=== PATIENT | female | born 1950 | race Caucasian/White ===

== ENCOUNTER → 2017-12-31 14:58 | Outpatient (CLI) | payer MEDICARE, BC, SELFPAY ==
--- NOTE | 2017-12-31 15:07 | DI.REPORT_ITS ---
SYMPTOM/DIAGNOSIS: ACUTE PAIN LEFT KNEE M25.562 LEFT KNEE: 12/31 Three views were obtained. There are minimal change of hypertrophic spurring of the bones of the knee. No other significant abnormality seen.
== END ==
PROVIDERS: PCP Nurse Practitioner; Visit Provider Nurse Practitioner
DX: M25.562 Pain in left knee (principal); M76.892 Other specified enthesopathies of left lower limb, excluding foot
CPT/HCPCS: 73562

== ENCOUNTER 2018-01-15 09:30 | Outpatient (RCR) | payer MEDICARE, BC, SELFPAY ==
--- NOTE | 2018-01-12 13:00 | IE_ITS ---
Date: January 12, 2018 Referring: FLORENCE Bhatia M.D. Diagnosis: Acute L knee pain P.T. Diagnosis: Patella tendinitis of L knee SUBJECTIVE: History of Present Illness: Saundra complains of intermittent discomfort throughout the anterior aspect of the L knee. This is generally worse with taking the first couple dozen steps after prolonged sitting, stair,hill climbing , dissension greater than ascension, etc. . . Does not interfere with sleeping pattern, (-) AM stiffness, no swelling, no complaints of locking or buckling. 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 Was doing well until 1 month ago when she developed an onset of anterior L knee pain. The day before she was riding a horse, which she had not ridden in 11 years and the saddle kept slipping, so she was using her L leg to try to stablize the saddle. Did not develop any swelling, but she did have difficulty with weight bearing and used 2 sticks to assist with walking. She was seen by Deepa Huertas DPT for some massage and since then her knee pain is 80% improved. Pain Ratin/10 currently Pain Location: Throughout the anterior aspect of the L knee Prior Level of Function: Independent with all ADL's Current Level of Function: Unable to run, has difficulty walking more than a couple blocks. Stairclimbing is painful as well as squatting. 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 Previous Treatment: X-ray was taken recently and showed some mild spurring along the lateral tibial plateau as well as suprapatellarly, otherwise she has good joint space. Comorbidities: Hypertension, hypothyroidism, hx of cancer. Falls in the last year: __X__ No ____Yes - How many? ____ - (if over 2, balance SM needs to be completed) Reported hospitalizations in the last year - __X__ No ____ Yes - Dates of admission/reason: Medications: Levothyroxine, anti-hypertensives and Tylenol. Unable to take Ansaids. Quality of Life: ____ Excellent __X__ Good ____ Fair ____ Poor Standardized Measures: LEFS score: 53% OBJECTIVE: Posture: Genu valgus bilaterally with a posterior tibial dysfunctional R foot requiring use of an Amara brace, mild pronator on the L. She wears accommodative type orthotics Observation: (behavior, atrophy, skin color, etc.) Pleasant, no pain behavior noted. Gait: Ambulates with mild antalgia bilaterally during stance phase L side mainly because of anterior L knee pain, R because of R ankle. Palpation: Has tenderness to palpation throughout the joint lines of both knees L greater than R, but particularly over the L patella tendon, glut medius on the L greater than R and lesser degree over the ITB. Edema: (-) effusion, erythema or warmth. ROM: Her lumbar movements are non-irritable. Bilateral hip motion is mildly limited within an articular pattern, or without pain on movement, or reproduction of her symptoms. Her L knee motion is 0 to 135-140 degrees with end range pain throughout the anterior aspect of the knee with flexion/extension. Talocrural, subtalar movements not tested. She has good patella movement. Strength: Has full motor control throughout, decreased quad definition on the L compared to the R and L glut is at -5/5. Neuro: Intact. Special Tests: (-) SLR bilaterally, (-) patellofemoral compression, (-) Adrian 's or drawer sign, (-) laxity with valgus varus stress, (-) Xu's or Apley' s grind test. Treatment: Initial evaluation along with a friction massage to the L patella tendon as well as HEP. IE: [id number] Therapeutic procedures ([id number]). Direct treatment time: 60 MINS Total treatment time: 60 MINS ASSESSMENT: Patient is a 67-year-old female, referred for PT services with the diagnosis of acute L knee pain. Patient presents with clinical signs and symptoms consistent with patella tendinopathy L knee, as demonstrated by the following impairment level findings: Localized tenderness over the patella tendon L knee along with end range discomfort, some mild L quad/glut weakness. Impairments are contributing to the following functional limitations:Difficulty walking more than a couple blocks, discomfort when initially taken the first few steps after prolonged sitting, as well as interfering with her ability to perform her household duties. Patient is assessed as: __X__ Low 00507 ____ Moderate 78034 ____ High 76671 complexity, based on the following: History: (list): Recent onset of anterior L knee pain. See comorbidities and social history. Examination: (list): X See above for functional limitations and impairments. Presentation: X Stable . Evolving Unstable: She is 80% better compared to onset. Decision-Making: Low complexity X Moderate complexity High complexity % Disability based on LEFS of 53% __X__ Patient requires skilled PT intervention to remediate the above functional limitations to return to: _ Prognosis: ____ Excellent __X__ Good ____ Fair ____ Poor G-Codes (fill in modifier after appropriate code): Patient's primary functional limitation is in the category of: __X__ Mobility - walking and moving around : [id number] Projected goal: __X__ Mobility - walking and moving around: [id number] STG: __6__ weeks. 1: Assist the healing process of patella tendinopathy in order to increase her WB time and pain intensity. LTG: __12__ weeks. 1: Return to premorbid level of function. PLAN: Session today consisted of the evaluation along with friction massage over the L patella tendon and issuing her a written and illustrated home exercise program consisting of open/close chain quad, gluteal strengthening. This should be done within limits of pain. Ice for symptomatic relief, particularly towards the latter part of the day. Avoid excessive hill or stairclimbing. I will see her 2x a week for next 2-4 weeks for soft tissue mobilization and strengthening, gait training, etc. . . Modify her program as her symptoms dictate. [] Therapeutic exercise - [id number]-[]. Thank you for this referral. Please do not hesitate to contact me with any questions or concerns regarding this patient's plan of care. *Ingrid, please sign this evaluation if you are in agreement with the above stated goals and plan of care. ___ cc: FLORENCE Bhatia
--- NOTE | 2018-01-15 10:16 | PTTR_ITS ---
DATE: 01/15/18 OBJECTIVE: Manual therapy: ([id number]). Pt received CFM to the patella tendon. Pt then received rock taping to the left knee. Pt then transitioned into R side lying and received DTM and trigger point release techniques throughout the glute med region. * X Ultrasound - (x 8 mins) - [id number]: 3mhz, 20% duty cycle, 1.0w/cm2 to the patella tendon where she was the most symptomatic. Direct treatment time: 30 Total treatment time: 30
== END 2018-01-16 23:59 | disposition home or self-care (01) ==
LOC: PT 09:30
PROVIDERS: PCP Nurse Practitioner; Referring Provider Nurse Practitioner; Visit Provider Nurse Practitioner
DX: M76.52 Patellar tendinitis, left knee (principal); M25.512 Pain in left shoulder; M54.6 Pain in thoracic spine; M54.2 Cervicalgia; M79.1 Myalgia
CPT/HCPCS: 97035; 97110; 97140; 97161; G8978

== ENCOUNTER 2018-03-02 01:07 | Outpatient (CLI) | payer MEDICARE, BC, SELFPAY ==
--- NOTE | 2018-03-02 16:22 | DI.MAMMO_ITS ---
SYMPTOMS/DIAGNOSIS: SCREENING, Z12.31 MAMMOGRAMS: Mammograms were interpreted according to the usual protocol including computer analysis with CAD system, tomosynthesis and C view imaging. The breast tissue is of moderate radiodensity. There is no evidence of a mass. There are no suspicious calcifications and there has been no significant interval change when compared with prior images. SUMMARY: No evidence of malignancy, category 1. Yearly screening mammography is recommended. Breast density category B. SA ASSESSMENT OF FINDINGS: Negative. Category 1. Patient will receive a letter notifying them of these results. BI-RADS category B. There are scattered areas of fibroglandular density.
== END 2018-03-02 01:27 ==
PROVIDERS: PCP Nurse Practitioner; Visit Provider Nurse Practitioner
DX: Z12.31 Encounter for screening mammogram for malignant neoplasm of breast (principal)
CPT/HCPCS: 77063; 77067

== ENCOUNTER 2018-03-17 16:05 | Outpatient (REF) | payer MEDICARE, BC, SELFPAY ==
[2018-03-18 19:56] LABS: Campylobacter PCR SEE COMMENTS; Salmonella PCR SEE COMMENTS; Shiga Toxin PCR SEE COMMENTS; Shigella/Enteroinvasive Ecoli SEE COMMENTS
== END 2018-03-17 16:25 ==
LOC: LBN 16:05
PROVIDERS: PCP Nurse Practitioner; Visit Provider Nurse Practitioner
DX: R19.7 Diarrhea, unspecified (principal)
CPT/HCPCS: 87505; 83630; 87177; 87324

== ENCOUNTER 2018-04-18 09:39 | Outpatient (REF) | payer MEDICARE, BC, SELFPAY ==
[2018-04-21 11:05] LABS: Campylobacter PCR SEE COMMENTS; Salmonella PCR SEE COMMENTS; Shiga Toxin PCR SEE COMMENTS; Shigella/Enteroinvasive Ecoli SEE COMMENTS
[2018-04-21 18:55] LABS: Calprotectin 195 mcg/g
== END 2018-04-18 09:59 ==
LOC: LBN 09:39
PROVIDERS: PCP Nurse Practitioner; Visit Provider Nurse Practitioner Family
DX: R19.7 Diarrhea, unspecified (principal); R63.4 Abnormal weight loss
CPT/HCPCS: 87505; 81050; 82656; 83497; 83630; 83993; 87177; 87324

== ENCOUNTER 2018-04-18 12:07 | Outpatient (REF) | payer MEDICARE, BC, SELFPAY ==
[2018-04-21 16:13] LABS: 5-Hydroxyindoleacetic Acid, U 9.4 mg/24 h (<=8.0); Urine Volume 1400 mL
== END 2018-04-18 12:27 ==
LOC: LBN 12:07
PROVIDERS: PCP Nurse Practitioner; Visit Provider Nurse Practitioner Family
DX: R19.7 Diarrhea, unspecified (principal); R63.4 Abnormal weight loss
CPT/HCPCS: 87505; 81050; 82656; 83497; 83630; 83993; 87177; 87324

== ENCOUNTER 2018-04-24 11:43 | Outpatient (REF) | payer MEDICARE, BC, SELFPAY ==
[2018-05-01 19:25] LABS: Pancreatic Elastase, F 192 mcg/g
== END 2018-04-24 12:03 ==
LOC: LBN 11:43
PROVIDERS: PCP Nurse Practitioner; Visit Provider Nurse Practitioner Family
DX: R19.7 Diarrhea, unspecified (principal)
CPT/HCPCS: 82656

== ENCOUNTER 2018-07-29 08:15 | Outpatient (CLI) | payer MEDICARE, BC, SELFPAY ==
[2018-07-29 08:40] LABS: HCT 43.3 % (36.0-46.0); HGB 14.2 g/dL (12.0-15.5); Mean Corp. HGB Concentration 32.8 g/dL (32.0-36.0); Mean Corpuscular Hemoglobin 29.9 pg (27.0-33.0); Mean Corpuscular Volume 91.2 fL (80-95); Mean Platelet Volume 10.6 fL (8.0-11.0); Platelet Count 118 x1000/uL (130-400); RBC 4.75 m/cumm (4.00-5.20); RBC Distribution Width 13.6 % (11.7-14.6)
[2018-07-29 09:36] LABS: ALT 23 U/L (12-78); AST 20 U/L (15-37); Albumin 3.8 g/dL (3.4-5.0); Alkaline Phosphatase 85 U/L (46-116); Anion Gap 8.3 mmol/L (3-11); BUN 17 mg/dL (7-18); Bilirubin, Total 0.4 mg/dL (0.2-1.0); CO2 30.7 mmol/L (21.0-32.0); CREATININE 0.76 mg/dL (0.55-1.02); Calcium 9.4 mg/dL (8.5-10.1); Chloride 105 mmol/L (98-107); Cholesterol 185 mg/dL (50-200); Glucose 103 mg/dL (70-100); HDL Cholesterol 62 mg/dL (40-60); LDL CHOLESTEROL 99 mg/dL (<100); Potassium 4.1 mmol/L (3.5-5.1); Sodium 144 mmol/L (136-145); TSH (W/Ref FT4) 3.06 uIU/mL (0.358-3.74); Total Protein 6.8 g/dL (6.4-8.2); Triglyceride 112 mg/dL (30-150)
[2018-07-29 09:57] LABS: Hemoglobin A1C 5.4 % (4.5-6.2)
[2018-07-29 13:53] LABS: Absolute Eosinophil Count 0.76 k/cumm (0.0-0.7); Absolute Lymphocyte Count 32.93 k/cumm (1.2-3.4); Absolute Monocyte Count 0.76 k/cumm (0.11-0.7); Absolute Neutrophil Count 3.41 k/cumm (1.2-6.7); Atypical Lymphocytes % 10; Diff Comment Manual Differential
[2018-07-29 13:54] LABS: RBC Morphology Normal
[2018-07-29 14:12] LABS: White Blood Cell Count 37.85 k/cumm (4.4-10.8)
== END 2018-07-29 08:35 ==
PROVIDERS: PCP Nurse Practitioner; Visit Provider Nurse Practitioner
DX: I10 Essential (primary) hypertension (principal); R73.01 Impaired fasting glucose; E03.9 Hypothyroidism, unspecified; E78.5 Hyperlipidemia, unspecified
CPT/HCPCS: 80053; 80061; 83721; 83036; 84443; 85025

== ENCOUNTER 2018-08-31 11:19 | Outpatient (CLI) | payer MEDICARE, BC, SELFPAY ==
[2018-08-31 11:47] LABS: Abs Immature Grans 0.03 k/cumm (0.0-0.09); Absolute Eosinophil Count 0.22 k/cumm (0.0-0.7); Basophils % 0.2; Eosinophils % 0.7; HCT 43.8 % (36.0-46.0); HGB 14.4 g/dL (12.0-15.5); Immature Grans % 0.1; Lymphocytes % 87.4; Mean Corp. HGB Concentration 32.9 g/dL (32.0-36.0); Mean Corpuscular Hemoglobin 29.8 pg (27.0-33.0); Mean Corpuscular Volume 90.7 fL (80-95); Mean Platelet Volume 10.1 fL (8.0-11.0); Monocytes % 3.1; Neutrophils % 8.5; Platelet Count 135 x1000/uL (130-400); RBC 4.83 m/cumm (4.00-5.20); RBC Distribution Width 14.1 % (11.7-14.6)
[2018-08-31 12:02] LABS: ALT 41 U/L (12-78); AST 25 U/L (15-37); Albumin 3.7 g/dL (3.4-5.0); Alkaline Phosphatase 81 U/L (46-116); Anion Gap 8.6 mmol/L (3-11); BUN 16 mg/dL (7-18); Bilirubin, Total 0.4 mg/dL (0.2-1.0); CO2 27.4 mmol/L (21.0-32.0); CREATININE 0.68 mg/dL (0.55-1.02); Calcium 9.2 mg/dL (8.5-10.1); Chloride 105 mmol/L (98-107); Glucose 133 mg/dL (70-100); LDH 175 U/L (81-234); Potassium 4.2 mmol/L (3.5-5.1); Sodium 141 mmol/L (136-145); Total Protein 7.1 g/dL (6.4-8.2)
[2018-08-31 12:32] LABS: Absolute Basophil Count 0.06 k/cumm (0.0-0.2); Absolute Lymphocyte Count 27.48 k/cumm (1.2-3.4); Absolute Monocyte Count 0.97 k/cumm (0.11-0.7); Absolute Neutrophil Count 2.67 k/cumm (1.2-6.7); White Blood Cell Count 31.44 k/cumm (4.4-10.8)
[2018-08-31 12:33] LABS: Diff Comment Diff Reviewed; RBC Morphology Normal
== END 2018-08-31 11:39 ==
PROVIDERS: PCP Nurse Practitioner; Visit Provider Internal Medicine Hematology
DX: C91.90 Lymphoid leukemia, unspecified not having achieved remission (principal)
CPT/HCPCS: 36415; 80053; 83615; 85025

== ENCOUNTER 2018-12-11 08:17 | Outpatient (CLI) | payer MEDICARE, BC, SELFPAY ==
[2018-12-11 09:15] LABS: Anion Gap 9.5 mmol/L (3-11); BUN 13 mg/dL (7-18); CO2 26.5 mmol/L (21.0-32.0); CREATININE 0.73 mg/dL (0.55-1.02); Calcium 9.5 mg/dL (8.5-10.1); Chloride 109 mmol/L (98-107); Glucose 104 mg/dL (70-100); Sodium 145 mmol/L (136-145)
== END 2018-12-11 08:37 ==
PROVIDERS: PCP Nurse Practitioner; Referring Provider Internal Medicine Hematology; Visit Provider Nurse Practitioner
DX: R79.9 Abnormal finding of blood chemistry, unspecified (principal)
CPT/HCPCS: 36415; 80048

== ENCOUNTER 2019-06-02 07:41 | Outpatient (CLI) | payer MEDICARE, BC, SELFPAY ==
[2019-06-02 08:00] LABS: HCT 44.8 % (36.0-46.0); HGB 14.7 g/dL (12.0-15.5); Mean Corp. HGB Concentration 32.8 g/dL (32.0-36.0); Mean Corpuscular Hemoglobin 29.7 pg (27.0-33.0); Mean Corpuscular Volume 90.5 fL (80-95); Mean Platelet Volume 10.4 fL (8.0-11.0); Platelet Count 145 x1000/uL (130-400); RBC 4.95 m/cumm (4.00-5.20)
[2019-06-02 08:21] LABS: White Blood Cell Count 38.07 k/cumm (4.4-10.8)
[2019-06-02 08:40] LABS: ALT 27 U/L (14-59); AST 22 U/L (15-37); Alkaline Phosphatase 74 U/L (46-116); Anion Gap 7.1 mmol/L (3-11); BUN 15 mg/dL (7-18); Bilirubin, Total 0.5 mg/dL (0.2-1.0); CO2 28.9 mmol/L (21.0-32.0); CREATININE 0.78 mg/dL (0.55-1.02); Calcium 9.6 mg/dL (8.5-10.1); Calculated LDL 124 mg/dL; Chloride 105 mmol/L (98-107); Cholesterol 213 mg/dL (<200); Glucose 93 mg/dL (74-106); HDL Cholesterol 60 mg/dL (40-60); Sodium 141 mmol/L (136-145); TSH (W/Ref FT4) 3.61 uIU/mL (0.36-3.74); Triglyceride 145 mg/dL (<150)
== END 2019-06-02 08:01 ==
PROVIDERS: PCP Nurse Practitioner; Visit Provider Nurse Practitioner
DX: I10 Essential (primary) hypertension (principal); E78.5 Hyperlipidemia, unspecified; E03.9 Hypothyroidism, unspecified
CPT/HCPCS: 36415; 80053; 80061; 85027; 84443

== ENCOUNTER 2019-06-14 01:44 | Outpatient (CLI) | payer MEDICARE, BC, SELFPAY ==
--- NOTE | 2019-06-14 11:51 | DI.MAMMO_ITS ---
EXAM: MG MAMMO SCREENING CLINICAL HISTORY: screening, Z12.39. TECHNIQUE: Full field digital CC and MLO mammographic images were obtained with 3D tomosynthesis and utilizing computer aided detection (CAD). COMPARISON: 2011 to 2017 FINDINGS: Breast Density - Category A - Almost entirely fatty Masses/Architectural Distortion: None seen. Microcalcifications: No suspicious pleomorphic-type calcifications are seen. Skin Thickening/Nipple Retraction: None. Axilla: There are enlarged bilateral axillary lymph nodes which appear unchanged from the previous ex aminations. The patient has a history of CLL. IMPRESSION: 1. BI-RADS Cat 2- Negative mammogram with benign Findings. 2. Unless there is more urgent need, screening mammography is recommended, as per [place] [employer] guidelines. A negative radiographic report should not delay biopsy if a dominant or clinically suspicious mass is present. Up to ten percent of cancers are not identified on mammography. A negative report may reinforce clinical impression. Adenosis and dense breasts may obscure an underlying neoplasm. False positive reports average 6 to 10%. Patient will receive a letter notifying them of these results.
== END 2019-06-14 02:04 ==
PROVIDERS: PCP Nurse Practitioner; Visit Provider Nurse Practitioner
DX: Z12.31 Encounter for screening mammogram for malignant neoplasm of breast (principal); R59.0 Localized enlarged lymph nodes
CPT/HCPCS: 77063; 77067

== ENCOUNTER 2019-09-28 01:35 | Outpatient (CLI) | payer MEDICARE, BC, SELFPAY ==
[2019-09-28 16:24] LABS: Abs Immature Grans 0.08 k/cumm (0.0-0.09); Basophils % 0.3; Eosinophils % 0.5; HCT 43.9 % (36.0-46.0); HGB 14.3 g/dL (12.0-15.5); Immature Grans % 0.2 %; Mean Corp. HGB Concentration 32.6 g/dL (32.0-36.0); Mean Corpuscular Hemoglobin 30.1 pg (27.0-33.0); Mean Corpuscular Volume 92.4 fL (80-95); Mean Platelet Volume 11.3 fL (8.0-11.0); Monocytes % 2.8; Neutrophils % 8.8; Platelet Count 135 x1000/uL (130-400); RBC 4.75 m/cumm (4.00-5.20); RBC Distribution Width 13.9 % (11.7-14.6)
[2019-09-28 16:44] LABS: Absolute Basophil Count 0.13 k/cumm (0.0-0.2); Absolute Eosinophil Count 0.21 k/cumm (0.0-0.7); Absolute Lymphocyte Count 37.45 k/cumm (1.2-3.4); Absolute Neutrophil Count 3.77 k/cumm (1.2-6.7)
[2019-09-28 17:38] LABS: ALT 27 U/L (14-59); AST 24 U/L (15-37); Alkaline Phosphatase 68 U/L (46-116); Anion Gap 6.5 mmol/L (3-11); BUN 11 mg/dL (7-18); Bilirubin, Total 0.3 mg/dL (0.2-1.0); CO2 29.5 mmol/L (21.0-32.0); CREATININE 0.83 mg/dL (0.55-1.02); Calcium 9.7 mg/dL (8.5-10.1); Chloride 106 mmol/L (98-107); Glucose 103 mg/dL (74-106); LDH 212 U/L (81-234); Potassium 3.9 mmol/L (3.5-5.1); Sodium 142 mmol/L (136-145); Total Protein 6.9 g/dL (6.4-8.2)
[2019-09-28 18:11] LABS: Lymphocytes % 87.4
[2019-09-28 18:12] LABS: Diff Comment Diff Reviewed; RBC Morphology Normal
[2019-09-28 20:53] LABS: White Blood Cell Count 42.85 k/cumm (4.4-10.8)
== END 2019-09-28 01:55 ==
PROVIDERS: PCP Nurse Practitioner; Visit Provider Internal Medicine Hematology
DX: C91.90 Lymphoid leukemia, unspecified not having achieved remission (principal)
CPT/HCPCS: 36415; 80053; 83615; 85025

== ENCOUNTER 2020-02-15 01:43 | Outpatient (CLI) | payer MEDICARE, BC, SELFPAY ==
--- NOTE | 2020-02-15 | DI.US_ITS ---
EXAM: MG MAMMO DIAGNOSTIC UNI AND US BREAST LT LIMITED CLINICAL HISTORY: NEW LT BREAST LUMP AT 12-1, APPROX 2 CM SUPERIOR NIPPLE, FAMILY H/O BREAST CA, N63 .20, Z80.3 TECHNIQUE: Spot compression views including C- View and tomographic imaging were performed. COMPARISON: 2011 through May, FINDINGS: LEFT MAMMOGRAM: The left breast is composed of fatty density tissue, breast density category A. No suspicious masses or suspicious microcalcifications are seen. No abnormality is identified in the area marked corresponding to the palpable abnormality. There are enlarged lymph nodes within the left axilla, which may have increased when compared with th e previous exam. LEFT BREAST ULTRASOUND: The area of the palpable concern was scanned. No cyst or mass is identified. There is no skin thick ening. The axilla was also scanned, which shows enlarged lymph nodes. The largest measures 3 cm whi ch shows some loss of fatty hilum. The other smaller nodes maintain a fatty hilum. Findings could r epresent reactive lymph nodes. Metastatic disease or lymphoma could be considered. IMPRESSION: BI-RADS Category 2 - Benign Findings No mass is identified in the left breast. Negative mammogram should not preclude further investigati on of a clinically suspicious abnormality. Enlarged lymph nodes are noted in the left axilla, increa sing when compared with the previous exam. Breast Density - Category A - Almost entirely fatty
== END 2020-02-15 02:03 ==
PROVIDERS: PCP Nurse Practitioner; Visit Provider Nurse Practitioner Adult Health
DX: R92.8 Other abnormal and inconclusive findings on diagnostic imaging of breast (principal); N63.21 Unspecified lump in the left breast, upper outer quadrant; Z80.3 Family history of malignant neoplasm of breast
CPT/HCPCS: 76642; 77061; 77065; G0279

== ENCOUNTER 2020-04-10 08:41 | Outpatient (CLI) | payer MEDICARE, BC, SELFPAY ==
[2020-04-11 18:06] LABS: Patient Race White; SARS-CoV-2 RNA Undetected (Undetected); SARS-CoV-2 Specimen Source Nasal
== END 2020-04-10 09:01 ==
PROVIDERS: PCP Nurse Practitioner; Visit Provider Nurse Practitioner Adult Health
DX: Z11.59 Encounter for screening for other viral diseases (principal)
CPT/HCPCS: U0003

== ENCOUNTER 2020-05-02 02:45 | Outpatient (CLI) | payer MEDICARE, BC, SELFPAY ==
[2020-05-02 09:46] LABS: Hemoglobin A1C 5.9 % (<5.7)
[2020-05-02 10:27] LABS: Calculated LDL 108 mg/dL (<100); Cholesterol 188 mg/dL (<200); HDL Cholesterol 64 mg/dL (40-60); Triglyceride 84 mg/dL (<150)
== END 2020-05-02 03:05 ==
PROVIDERS: PCP Nurse Practitioner; Visit Provider Nurse Practitioner
DX: E78.5 Hyperlipidemia, unspecified (principal); R73.01 Impaired fasting glucose
CPT/HCPCS: 36415; 80061; 83036

== ENCOUNTER 2020-06-09 02:48 | Outpatient (CLI) | payer MEDICARE, SELFPAY ==
[2020-06-09 14:01] LABS: HCT 43.5 % (36.0-46.0); MCH 30.2 pg (27.0-33.0); MCHC 32.2 % (32.0-36.0); MCV 93.8 fL (80-95); MPV 10.5 fL (8.0-11.0); Platelet Count 164 10^3/uL (130-400); RBC 4.64 10^6/uL (3.93-5.22); RDW 13.7 % (11.7-14.6); RDW-SD 46.7 fL
[2020-06-09 15:07] LABS: ALT 26 U/L (14-59); AST 25 U/L (15-37); Albumin 4.1 g/dL (3.4-5.0); Alkaline Phosphatase 58 U/L (46-116); Anion Gap 7.7 mmol/L (3-11); BUN 17 mg/dL (7-18); Bilirubin, Total 0.4 mg/dL (0.2-1.0); CO2 29.3 mmol/L (21.0-32.0); Calcium 9.6 mg/dL (8.5-10.1); Chloride 106 mmol/L (98-107); Glucose 96 mg/dL (74-106); Potassium 4.1 mmol/L (3.5-5.1); Sodium 143 mmol/L (136-145); TSH (W/Ref FT4) 2.75 uIU/mL (0.36-3.74); Total Protein 6.8 g/dL (6.4-8.2)
== END 2020-06-09 03:08 ==
PROVIDERS: PCP Nurse Practitioner; Visit Provider Nurse Practitioner
DX: I10 Essential (primary) hypertension (principal); I48.91 Unspecified atrial fibrillation; E03.9 Hypothyroidism, unspecified; E78.5 Hyperlipidemia, unspecified
CPT/HCPCS: 36415; 80053; 85027; 84443

== ENCOUNTER 2020-06-30 02:57 | Outpatient (CLI) | payer MEDICARE, SELFPAY ==
--- NOTE | 2020-06-30 14:45 | DI.MAMMO_ITS ---
EXAM: MG MAMMO SCREENING CLINICAL HISTORY: SCREENING, FAMILY H/O BREAST CA,Z12.39. TECHNIQUE: Bilateral full field digital CC and MLO mammographic images were obtained with 3D tomosyn thesis and utilizing computer aided detection (CAD). COMPARISON: Prior mammograms dating back to 2010, the most recent being May 2019 and diagnostic study performed January 2020. Breast limited ultrasound January 2020 was also reviewed. FINDINGS: There are no spiculated masses nor malignant appearing microcalcification groups. There is no signif icant architectural distortion nor skin thickening-retraction. Prominent axillary lymph nodes are again noted bilaterally, previously documented. IMPRESSION: No radiographic evidence of malignancy. Slightly prominent lymph nodes in both axillary regions again noted but unchanged from prior mammogra ms. Correlation with clinical exam of the axillary regions is recommended. BI-RADS Category 2 - Benign Findings Breast Density - Category B - Scattered areas of fibroglandular density Breast density Category C or D implies that the patient has dense breast tissue. Dense breast tissue can make it harder to find cancer on a mammogram. Dense breast tissue is also associated with an incr eased risk of breast cancer. This information about the result of the mammogram report was provided to the patient to raise their awareness. Use this report when you speak with the patient about their risks for breast cancer, which includes their family history. At that time, you may recommend additional screening tests (Ultrasoun d or MRI) as these tests may add significant information. A negative radiographic report should not delay biopsy if a dominant or clinically suspicious mass is present. Up to ten percent of cancers are not identified on mammography. A negative report may reinforce clinical impression. Adenosis and dense breasts may obscure an underlying neoplasm. False positive reports average 6 to 10%. Patient will receive a letter notifying them of these results.
== END 2020-06-30 02:58 ==
LOC: DI 02:58
PROVIDERS: PCP Nurse Practitioner; Visit Provider Nurse Practitioner
DX: Z12.31 Encounter for screening mammogram for malignant neoplasm of breast (principal); Z80.3 Family history of malignant neoplasm of breast
CPT/HCPCS: 77063; 77067

== ENCOUNTER 2020-08-24 00:46 | Outpatient (CLI) | payer MEDICARE, SELFPAY ==
--- NOTE | 2020-08-24 07:00 | DI.US_ITS ---
EXAM: US SOFT TISSUE EXTREMITY CLINICAL HISTORY: noted new medial NT LLE skin mass,? scar,r22.9. TECHNIQUE: Ultrasound was performed using standard protocol. COMPARISON: CR LEFT KNEE 3 VIEW COMPLETE from 12/31/2017 FINDINGS: Sonographic assessment utilizing grayscale and color Doppler imaging was performed and targeted to th e area of clinical concern. The area of the palpable abnormality corresponds to multiple calcifications measuring up to 3 millime ters in size. No associated mass is visible. There is no fluid collection. IMPRESSION: Calcifications within the subcutaneous fat correspond to the palpable abnormality. No visible soft t issue mass or fluid collection.. DATA REPOSITORY:
== END 2020-08-24 01:06 ==
PROVIDERS: PCP Nurse Practitioner; Visit Provider Nurse Practitioner
DX: R22.42 Localized swelling, mass and lump, left lower limb (principal)
CPT/HCPCS: 76881

== ENCOUNTER 2020-11-21 14:53 | Outpatient (CLI) | payer MEDICARE, SELFPAY ==
[2020-11-22 10:48] LABS: Lyme Ab w Rflx to Lyme Confirm Negative (Negative)
== END 2020-11-21 14:54 | disposition home or self-care (01) ==
LOC: LBO 14:54
PROVIDERS: PCP Nurse Practitioner; Visit Provider Nurse Practitioner
DX: W57.XXXA Bitten or stung by nonvenomous insect and other nonvenomous arthropods, initial encounter (principal); T14.8XXA Other injury of unspecified body region, initial encounter
CPT/HCPCS: 36415; 86618

== ENCOUNTER 2021-06-07 01:56 | Outpatient (CLI) | payer MEDICARE, SELFPAY ==
[2021-06-07 10:56] LABS: ALT 16 U/L (14-59); AST 17 U/L (15-37); Albumin 3.8 g/dL (3.4-5.0); Alkaline Phosphatase 73 U/L (46-116); BUN 20 mg/dL (7-18); Bilirubin, Total 0.3 mg/dL (0.2-1.0); CREATININE 0.8 mg/dL (0.55-1.02); Calcium 9.5 mg/dL (8.5-10.1); Calculated LDL 119 mg/dL (<100); Chloride 108 mmol/L (98-107); Cholesterol 204 mg/dL (<200); Glucose 97 mg/dL (74-106); HDL Cholesterol 64 mg/dL (40-60); Potassium 4.1 mmol/L (3.5-5.1); Sodium 144 mmol/L (136-145); TSH (W/Ref FT4) 2.58 uIU/mL (0.36-3.74); Total Protein 6.6 g/dL (6.4-8.2); Triglyceride 109 mg/dL (<150)
== END 2021-06-07 01:57 | disposition home or self-care (01) ==
LOC: LBO 01:56
PROVIDERS: PCP Nurse Practitioner; Visit Provider Nurse Practitioner
DX: E03.9 Hypothyroidism, unspecified (principal); I10 Essential (primary) hypertension; E78.5 Hyperlipidemia, unspecified; R73.03 Prediabetes
CPT/HCPCS: 36415; 80053; 80061; 83036; 84443

== ENCOUNTER 2021-08-23 00:43 | Outpatient (CLI) | payer MEDICARE, SELFPAY ==
--- NOTE | 2021-08-23 08:15 | DI.DEXA_ITS ---
Exam(s) XR DEXA BONE DENSITY W/WO ANEESH EXAM: XR DEXA BONE DENSITY W/WO ANEESH CLINICAL HISTORY: screening for osteoporosis in postmenopausal woman,z78.0 TECHNIQUE: COMPARISON: Comparison is 06/21/2014. FINDINGS: Lateral Spine Image: Unremarkable. No compression deformities identified. Left hip: Total T-Score: 1.2. This compares to 1.2 on the prior examination. This is shown no significant palomo ge in the bone mineral density. Total Z-Score: 2.8 T- and Z-scores: Within normal limits. Lumbar Spine: Total T-Score: 2.3. This compares to 1.5 on the prior examination. This is an increase in 7.6 percen t in the bone mineral density. Total Z-Score: 4.6 T- and Z-scores: Within normal limits. IMPRESSION: No evidence of osteoporosis.
--- NOTE | 2021-08-23 14:00 | DI.MAMMO_ITS ---
Exam(s) MAMMO SCREENING EXAM: MAMMO SCREENING CLINICAL HISTORY: screening,z12.39 TECHNIQUE: Bilateral full field digital CC and MLO mammographic images were obtained with 3D tomosyn thesis and utilizing computer aided detection (CAD). COMPARISON: Available for comparison. FINDINGS: Masses/Architectural Distortion: None seen. Microcalcifications: No suspicious pleomorphic-type are seen. Skin Thickening/Nipple Retraction: None. IMPRESSION: 1. No significant interval change with no specific features of malignancy noted. 2. Unless there is more urgent need, screening mammography is recommended, as per [place] [employer] guidelines. BI-RADS Category 1 - Negative Breast Density - Category B - Scattered areas of fibroglandular density Breast density category C or D implies that the patient has dense breast tissue. Dense breast tissue is very common and is not abnormal but dense breast tissue can make it harder to find cancer on a ma mmogram. Also, dense breast tissue may increase their breast cancer risk. This information about the result of the mammogram report was provided to the patient to raise their awareness. Use this report when you speak with the patient about their risks for breast cancer, which includes their family hist ory. At that time, you may recommend for more screening tests (Ultrasound or MRI) as they might be us eful based on their risk. A negative radiographic report should not delay biopsy if a dominant or clinically suspicious mass is present. Up to ten percent of cancers are not identified on mammography. A negative report may reinforce clinical impression. Adenosis and dense breasts may obscure an underlying neoplasm. False positive reports average 6 to 10%. Patient will receive a letter notifying them of these results.
== END 2021-08-23 01:03 ==
PROVIDERS: PCP Nurse Practitioner; Visit Provider Nurse Practitioner
DX: Z12.31 Encounter for screening mammogram for malignant neoplasm of breast (principal); Z13.820 Encounter for screening for osteoporosis; Z78.0 Asymptomatic menopausal state
CPT/HCPCS: 77063; 77067; 77080

== ENCOUNTER → 2021-12-21 00:29 | Outpatient (CLI) | payer MEDICARE, SELFPAY ==
--- OUTSIDE RECORDS SUMMARY | 2021-12-21 00:32 | XMS_ITS | Encounter Summary ---
:1950 Author Organization [place] [address] Care Team Providers Name Role Phone Ingrid Espinosa APRN Primary Care Provider Encounter Details Date Type Department Care Team Description 11/14/2021 Office Visit Hematology and Олег Navarro MD [facility] [address] HEMATOLOGY/[place] [address] CLL (chronic Oncology at [facility] Haydee Thakur MD [facility] DR HEMATOLOGY/[place] [address] lymphocytic leukemia) [place] [id number] Social History Tobacco Use Types Packs/Day Years Used Date Never Smoker Smokeless Tobacco: Never Used Alcohol Use Standard Drinks/Week Comments Yes 2 (1 standard drink = 0.6 oz pure alcoho l) Alcohol Habits Answer Date Recorded How often do you have a drink containing alcohol? Never 04/16/2018 How many drinks containing alcohol do you have on a typical Not asked day when you are drinking? How often do you have six or more drinks on one occasion? No t asked Comment: Not asked Sex Assigned at Date Recorded Not on file documented as of this encounter Last Filed Vital Signs Vital Sign Reading Time Taken Comments Blood Pressure 116/63 11/14/2021 2:44 PM EDT Pulse 75 11/14/2021 2:44 PM EDT Temperature 36.7 ??C (98.1 ??F) 11/14/2021 2:44 PM EDT Respiratory Rate 19 11/14/2021 2:44 PM EDT Oxygen Saturation 97% 11/14/2021 2:44 PM EDT Inhaled Oxygen Concentration - - Weight 96.6 kg (213 lb) 11/14/2021 2:44 PM EDT Height 176 cm (5' 9.29) 11/14/2021 2:44 PM EDT Body Mass Index 31.19 11/14/2021 2:44 PM EDT documented in this encounter Progress Notes Virgilio Navarro MD - 11/14/2021 3:30 PM EDT Images from the original note were not included. HEMATOLOGY FOLLOW UP VISIT NOTE REASON FOR VISIT: Saundra Blanton is a 71 y.o. female referred by Ingrid Espinosa APRN for f/up for CLL. PROBLEM LIST: 1) CLL: ?? Presentation:Incidentally noted to have inguinal and para aortic TIAN on MRI performed for back pain which was confirmed on f/up CT. F/up CBC on 09/24/17 revealed WBC of 20.5, with 84% lymphocytes (ALCof 17.4), Hgb of 14.8, MCV: 90, Plt count: 159. She is referred to [facility] for further evaluation of the incidentally noted TIAN and lymphocytosis. ?? Work up ?? Imaging: CT a/p: (07/22/17): mildly enlarged retroperitoneal , b/l iliac, inguinal LNs, unchanged compared to CT on 03/30/17; mild splenomegaly at 13.2cm; b/l renal angiomyolipomas stable compared to 03/2017, b/l non obstructing renal stones; Fatty liver, large hiatal hernia; ?? Peripheral Blood flow: Monoclonal, kappa-restricted CD5+ CD23+ B-cell population , consistent with CLL. ZAP70 positive, CD38 positive (partial, 25%); ?? LDH and B2MG: normal ?? FISH: POSITIVE for SERGO/11q22.3 deletion, and 13q14.3 deletion ?? 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 Treatment: Hasn't required any treatment yet. On watch and wait approach. 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 [facility], at [facility] and with Suri Newton APRN at [facility] ?? EGD: 06/30/18: Notable for medium-sized hiatal hernia, multiple gastric polyps. Biopsied. Path: fundic gland polyps. ?? Colonoscopy : 06/30/18: Diverticulosis in the sigmoid colon and in the descending colon ; Internalhemorrhoids ?? NM octreoscan: 06/16/18: No evidence of disease. ?? Saw Dr. Rodriguez at [facility] on 01/13/19 who felt that she does not need routine surveillance, either for the carcinoid or for the fundic gland polyps. 3. HTN Hypothyroidism 5. H/o DVT Provoked LLE DVT post- after 1 month bedrest and , 1986. Treated for a number of years per pt. R popliteal and posterior tibial DVT 2005. Repeat U/S OSH 2006 normal. USP anticoagulation since 2005. Stopped in 2011 Seen at [facility] - Testing was negative for an underlying inherited or acquired disorder of coagulation ?? 6. Renal angiomyolipomas, follows with Urology at [facility], Dr. Du 7. Hyperlipidemia 8. Dysplastic nevus resected from left thigh in 02/2018. Follows with Dermatology at [facility] 9. Colonoscopy 06/30/18 - Impression:??- The entire examined colon is normal. Biopsied. ?- The examined portion of the ileum was normal. ?- Diverticulosis in the sigmoid colon and in the descending colon. ?- Internal hemorrhoids. Path - Random colon, biopsy: - Lymphocytic colitis. 10. Lumbar radiculopathy 11.Peripheral neuropathy in LE related to disc disease 12. GERD INTERIM HISTORY: Saundra Blanton is a 71 y.o. female with PMH of carcinoid tumor of stomach, bilateral angiomyolipomas,being followed by urology at [facility], presenting for f/up for CLL. Karthikeyan is still in the hospital. Saundra has visited him earlier today. Rare night sweats; Lt supraclavicular LN has not changed in size; no other palpable lymph nodes No other health issues; taking allergy meds No fevers. No drenching nigh sweats. -No infections since last seen She is fully vaccinated for COVID-19 - No active cardiac/resp/GI issues ; Rest of the ROS : negative; MEDICATIONS ??? Allergy Relief, fexofenadine, 180 mg Tablet ??? nystatin, bulk, 100 million unit Powder ??? traZODone (Desyrel) 50 mg Tablet ??? melatonin 10 mg Capsule ??? buPROPion XL (Wellbutrin XL) 150 mg Tablet Extended Release 24 hr ??? gabapentin (Neurontin) 300 mg Capsule ??? EPINEPHrine 0.3 mg/0.3 mL Auto-Injector ??? calcium carbonate (Tums) 200 mg calcium (500 mg) Tablet, Chewable ??? metoprolol succinate XL (Toprol-XL) 25 mg Tablet Sustained Release 24 hr ??? Xarelto 20 mg Tablet ??? cetirizine (ZyrTEC) 10 mg Tablet ??? fluticasone propionate (FLONASE) 50 mcg/actuation [place], Suspension ??? Bifidobacterium infantis (ALIGN) 4 mg Capsule ??? ezetimibe (ZETIA) 10 mg Tablet ??? losartan (COZAAR) 100 mg Tablet ??? acetaminophen/diphenhydramine (TYLENOL PM ORAL) ??? cholecalciferol, Vitamin D3, 1,000 unit Tablet ??? Calcium 500 mg Tab ??? nystatin (MYCOSTATIN) powder ??? ketoconazole (NIZORAL) 2 % cream ??? desonide (DESOWEN) 0.05 % cream ??? acetaminophen (TYLENOL) 500 mg tablet ??? loperamide (IMMODIUM) 2 mg tablet ??? multivitamin (THERAGRAN) tablet ??? OXYGEN-AIR DELIVERY SYSTEMS (HORIZON NASAL CPAP SYSTEM MISC) ??? levothyroxine (SYNTHROID) 25 mcg tablet ??? UNABLE TO FIND ??? fish oil-omega-3 fatty acids 500 mg Capsule ALLERGIES/ADR Allergies Allergen Reactions ??? Latex Rash and Other (See Comments) Red welts ??? Sulfa (Sulfonamide Antibiotics) Rash ??? Codeine Other (See Comments) Bad dreams ??? Adhesive Tape ??? Adhesive Tape-Silicones Rash ??? Gluten ??? Hydrocodone-Acetaminophen Other (See Comments) Mental Status Changes ??? Lactose fodmap diet ??? Penicillins PERSONAL and SOCIAL HISTORY Social History Socioeconomic History ??? Marital status: Single Spouse name: Not on file ??? Number of children: 1 ??? Years of education: Not on file ??? Highest education level: Not on file Occupational History ??? 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 Smoking status: Never Smoker ??? Smokeless tobacco: Never Used Vaping Use ??? Vaping Use: Never used Substance and Sexual Activity ??? Alcohol use: Yes Alcohol/week: 2.0 - 3.0 standard drinks Types: 2 - 3 Glasses of wine per week ??? Drug use: No Comment: denies illicit drug use or abuse ??? Sexual activity: Not on file Comment: deferred Other Topics Concern ??? Not on file Social History Narrative ??? 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 [facility] Contact Permission:?? OK to leave message on machine. ?? FAMILY HISTORY Family History Problem Relation Age of Onset ??? Heart Disease Mother ??? Arthritis Mother ??? Diabetes Mother ??? Hypertension Mother ??? Hyperlipidemia Mother ??? Heart Disease Father ??? Arthritis Father ??? Chronic Obstructive Pulmonary Disease Father ??? Hyperlipidemia Father ??? Arthritis Sister ??? Depression Brother ??? Connective Tissue Disease Daughter ?? One daughter: she has Silva Danlos syn; PHYSICAL EXAM VITAL SIGNS: Blood pressure 116/63, pulse 75, temperature 36.7 ??C (98.1 ??F), temperature source Temporal, resp. rate 19, height 176 cm (5' 9.29), weight 96.6 kg (213 lb), SpO2 97 %. ECOG PS: 1 GENERAL: Saundra Blanton is a well-appearing 71 y.o. female in no acute distress. HEENT: Eyes: b/l PERRL, no conjunctival pallor , no scleral icterus; Sinuses: non-tender; Oropharynx: moist , clear, hypertrophy of hard palate causing narrowing of oral cavity; No thrush. ENDOCRINE: No thyromegaly palpated. CARDIOVASCULAR: Heart with regular rate and rhythm without S3,S4 or murmurs. PULMONARY: Lungs are clear to auscultation without rales, rhonchi or wheezing. GASTROINTESTINAL: Abdomen soft and non-tender without palpable masses or hepatosplenomegaly. MUSCULOSKELETAL: Rt ankle and lower leg - on dressing; Neck supple with full ROM. No spine or CVA tenderness. Right leg wound healed well SKIN: No rashes LYMPH: ~ 5mm palpable lymph node on the left clavicle ; no other palpable cervical/axillary/inguinallymphadenopathy. NEUROLOGICAL: Alert and oriented to person, place and time; No focal neurological deficits; PSYCHIATRIC: normal affect and mood LABORATORY Recent Results (from the past 72 hour(s)) Lactate Dehydrogenase Result Value Ref Range LDH 266 (H) 110 - 220 unit/L Comprehensive metabolic panel (non-fasting) Result Value Ref Range Glucose Lvl 108 65 - 199 mg/dL BUN 18 8 - 18 mg/dL Creatinine 0.84 0.70 - 1.20 mg/dL Sodium 144 135 - 145 mmol/L Potassium 4.4 3.5 - 5.0 mmol/L Chloride 105 98 - 107 mmol/L CO2 31 22 - 31 mmol/L Anion Gap 8 5 - 15 mmol/L Calcium 9.9 8.5 - 10.5 mg/dL Total Protein 6.5 6.1 - 8.0 g/dL Albumin 4.7 3.2 - 5.2 g/dL AST 28 0 - 30 unit/L ALT 19 0 - 30 unit/L Alk Phos 72 35 - 105 unit/L Total Bilirubin 0.3 0.2 - 1.3 mg/dL Estimated GFR 74 >=60 mL/min/1.73 m?? Hemogram Result Value Ref Range WBC 73.6 (CRIT) 4.0 - 9.5 x10(3)/mcL RBC 4.61 4.00 - 5.21 x10(6)/mcL Hemoglobin 13.7 11.7 - 15.5 g/dL Hematocrit 43.2 35.7 - 45.8 % MCV 93.7 82.6 - 94.4 fL MCH 29.7 27.1 - 32.0 pg MCHC 31.7 31.7 - 35.0 g/dL Platelets 223 145 - 357 x10(3)/mcL RDWSD 46.1 (H) 37.0 - 46.0 fL RDWCV 13.5 11.5 - 14.1 % MPV 10.8 7.6 - 12.9 fL nRBC % Auto 0.0 % nRBC Abs Auto 0.000 0.000 - 0.000 x10(3)/mcL Differential, Automated Result Value Ref Range Neutrophils % 4.1 % Neutr Abs (ANC) 3.03 1.70 - 6.10 x10(3)/mcL Lymphocytes % 92.9 % Lymphocytes Abs 68.4 (H) 0.9 - 3.2 x10(3)/mcL Monocytes % 2.4 % Monocyte Abs 1.8 (H) 0.3 - 0.9 x10(3)/mcL Eosinophils % 0.4 % Eosinophils Abs 0.3 0.0 - 0.4 x10(3)/mcL Basophils % 0.1 % Basophils Abs 0.1 0.0 - 0.1 x10(3)/mcL Immature Gran % 0.10 % Betty Gran Abs 0.07 (H) 0.00 - 0.04 x10(3)/mcL Scan, Peripheral Blood Result Value Ref Range Plat Estimate Normal RBC Morphology Normal Smudge Cells Present ASSESSMENT & PLANS: # Early stage CLL: Clinically, Ms. Blanton remains asymptomatic. The single palpable 0.5cm LN is stable in size comparedto prior visit. No HSM on exam (had CT a/p in 07/2017 showing mild splenomegaly and retroperitoneal and inguinal lymphadenopathy). I reviewed the labs with her from today: H&H and platelets are normal; Overall, absolute lymphocyte count (ALC) is increasing as expected for the past year with absolute lymphocyte doubling time ofmore than a 24 months. ALC today is lower than her prior labs 3 months ago. LDH remain slightly highat 266 (has been elevated for > 2 years now). Reviewed the indications to initiate therapy for CLL. Currently she does not have any enhance, will continue with the active surveillance approach. RTC for f/up with CBC,CMP,LDH in 5 months. # Hypogammaglobulinemia: IgG level in 06/2021 was 596.. no history of frequent infections. So, no indication to initiate IVIG at this time. We will check the level again at next visit which will be in the fall. -She is up-to-date with all immunizations # b/l renal Angiomyolipomas : being followed by urology; I reviewed my impression and recommendations with Saundra Blanton and answered all the questions to her satisfaction. she understands the plan, and knows that she can contact us at any time should any new symptoms, concerns or questions arise. Virgilio Navarro MD [facility] CC: Ingrid Espinosa APRN documented in this encounter Plan of Treatment Upcoming Encounters Date Type Specialty Care Team Description 03/06/2022 Office Visit Cardiology Lizeth Frazier MD [facility] [address] [place] [address] (Wo rk) 03/18/2022 Office Visit Neurology Donovan Mayer MD [facility] NEUROLOGY DEPT. [place], [place] [address] (Amado rk) 04/24/2022 Appointment Hematology and Oncology 04/24/2022 Office Visit Hematology and Oncology Renea Navarro MD [facility] HEMATOLOGY/ONCOL [place] DEPT. [place], [place] [address] (Wo rk) Scheduled Orders Name Type Priority Associated Diagnoses Order S chedule CBC (with Diff) Lab Routine CLL (chronic Every 3 cilf hs for 4 lymphocytic leukemia) Occurr ences starting 11/14/2021 unti l 11/14/2022, 1 c ompleted Comprehensive metabolic Lab Routine CLL (chronic Ever y 3 months for 4 panel (non-fasting) lymphocytic leukemia) Occurrences starting 11/14/2021 unti l 11/14/2022, 1 c ompleted Lactate Dehydrogenase Lab Routine CLL (chronic Every 3 months for 4 lymphocytic leukemia) Occurr ences starting 11/14/2021 unti l 11/14/2022, 1 c ompleted IgG Lab Routine CLL (chronic Expected: 02/17, lymphocytic leukemia) s: 11/17/2022 documented as of this encounter Results (ABNORMAL) Lactate Dehydrogenase (11/14/2021 2:30 PM EDT) athologist Signature LDH 266 (H) 110 - 220 [facility] unit/L [facility] Specimen Anatomical Collection Method Collection Time Receive d Time (Source) Location / / Volume Laterality Blood 11/14/2021 2:30 PM 2 2:38 EDT PM EDT Resulting Agency Comment Spec In Lab Virgilio Navarro MD CHEMISTRY ORDERABLES Performing Organization Address City/State/[place] [address] Comprehensive metabolic panel (non-fasting) (11/14/2021 2:30 PM EDT) athologist Signature Glucose Lvl 108 65 - 199 [facility] mg/dL [facility] Comment: Diabetes: >=200 mg/dL plus symp toms BUN 18 8 - 18 mg/dL [facility] Creatinine 0.84 0.70 - 1.20 mg/dL [facility] Sodium 144 135 - 145 mmol/L [facility] Potassium 4.4 3.5 - 5.0 mmol/L [facility] Comment: Please note: ??Patients with WBC >100,00 0 may have falsely elevated Potassium levels. ??For accurate Potassium quantif ication in these patients send serum separator tube (gold top) for subsequent determinations. ??Contact the Clinical Chemistry Laboratory if there are any qu estions. Chloride 105 98 - 107 mmol/L [facility] CO2 31 22 - 31 mmol/L [facility] Anion Gap 8 5 - 15 mmol/L [facility] Calcium 9.9 8.5 - 10.5 mg/dL [facility] Total Protein 6.5 6.1 - 8.0 g/dL [facility] Albumin 4.7 3.2 - 5.2 g/dL [facility] AST 28 0 - 30 unit/L [facility] ALT 19 0 - 30 unit/L [facility] Alk Phos 72 35 - 105 unit/L [facility] Total Bilirubin 0.3 0.2 - 1.3 mg/dL [facility] Estimated GFR 74 >=60 mL/min/1.73 m?? [facility] Comment: This patient's estimated GFR was calcula jerald using the 2020 CKD-EPI equation. The estimated GFR can vary from the jeffrey ured GFR by up to 30% in the absence of rapidly changing kidney function. Assess ment of the estimated GFR is not appropriate when creatinine concentratio ns are rapidly changing. For clinical situations in which a more precise estim ate of GFR is necessary, consider alternative methods of GFR estimation clark ch as a 24-hour urine creatinine clearance. Assignment of CKD stage 1-5 for patients with an eGFR near the transition point between stages may be based on clinical assessment of muscle mass and symptoms in addition to eGFR. Specimen Anatomical Collection Method Collection Time Receive d Time (Source) Location / / Volume Laterality Blood 11/14/2021 2:30 PM 2 2:38 EDT PM EDT Resulting Agency Comment Spec In Lab Virgilio Navarro MD CHEMISTRY ORDERABLES Performing Organization Address City/State/[place] [address] documented in this encounter Visit Diagnoses Diagnosis CLL (chronic lymphocytic leukemia) Chronic lymphoid leukemia, without menti on of having achieved remission documented in this encounter Care Teams Sap Fico Architect Relationship Specialty Start Date End Date Ingrid Espinosa APRN PCP - General Internal Medicine 07/28/17 [address] [place] [address] documented as of this encounter
--- OUTSIDE RECORDS SUMMARY | 2021-12-21 00:32 | XMS_ITS | Encounter Summary ---
:1950 Author Organization [facility] [place] [place] [address] Care Team Providers Name Role Phone Ingrid Espinosa APRN Primary Care Provider Reason for Referral Physical Therapy (Routine) - Canceled Specialty Diagnoses / Procedures Referred By Contact Refer red To Contact Physical Therapy Diagnoses Dyssynergic defecation Suri Newton Apd Pt Rehab [employer] [address] [place] [address] [place] [address] Referral ID Status Reason Start Date Expiration Visits Visits Date Requested Authorized [id number] Canceled Evaluate and 10/09/2021 10/09/2022 12 12 Treat Encounter Details Date Type Department Care Team Description 10/09/2021 [place] [facility] [place] Srini Newtonsyneralissa defecpapito; [facility] Kade Orellana APRN Irritable bowel [place] [address] [facility] [phone] [place] [address] Social History Tobacco Use Types Packs/Day Years [...] Sign Reading Time Taken Comments Blood Pressure 137/75 10/09/2021 11:16 AM EDT Pulse 70 10/09/2021 11:16 AM EDT Temperature - - Respiratory Rate - - Oxygen Saturation - - Inhaled Oxygen Concentration - - Weight 93 kg (205 lb) 10/09/2021 11:16 AM EDT Per Alexandra ent Height 175.3 cm (5' 9) 10/09/2021 11:16 AM EDT Body Mass Index 30.27 10/09/2021 11:16 AM EDT documented in this encounter Patient Instructions Patient InstructionsSieglingSuri rausch APRN - 10/09/2021 11:37 AM EDT Referral to physical therapy at [facility] 2. Continue citrucel as previously taking. May increase by 1-2 capsules every week up to 8. 3. Glycerin suppositories as needed to help facilitate bowel movements 4. Follow up as needed documented in this encounter Progress Notes Suri Newton APRN - 10/09/2021 11:30 AM EDT GASTROENTEROLOGY TELEMEDICINE PROGRAM - ESTABLISHED PATIENT VISIT Chief Complaint: Saundra Blanton is a 71 [address] of [address] Alcira rivas. provider found here for follow-up of fecal incontinence. Detailed history: *71 y.o. female With status post cholecystectomy, CLL, s/p c- section, and carcinoid in 2007. Appointments: --04/08/2018, she endorsed persistent diarrhea for approximately 1 month. Recommendations included stool studies, 5 HIAA, FODMAP diet, EGD, colonoscopy, and blood work. --05/26/2020, she endorsed doing well managing diarrhea with colestipol and FODMAP diet until summer 2019. She endorses developing urgent nonbloody fecal incontinence with 2 episodes per week. In betweenthese episodes, she endorses constipation lasting up to 4 days. Recommendations included decrease colestipol, Citrucel, and considering anorectal manometry/smart pill or small bowel follow-through. - 04/10/2021; she continued to have episodes of abdominal pain and diarrhea with fecal incontinence no longer responding to loperamide or colestipol. Recommendations included Citrucel, small bowel follow-through, and high resolution anorectal manometry. Interval history: Citrucel has been helpful. 4-5 capsules per day. Moving her bowels most days. May go up to 3 days without a bowel movement. No further fecal incontinence. Rare abdominal pain. Occasional straining and difficulty emptying. Digital manipulation. She continues to follow a modified FODMAP diet, although has re-introduced food she Review of systems: 14-point review of systems reviewed and negative except as above. Medications: Outpatient Medications Prior to Visit Medication Sig Dispense Refill ??? nystatin, bulk, 100 million unit Powder by Other route. ??? traZODone (Desyrel) 50 mg Tablet Take 50 mg by mouth daily as needed. ??? UNABLE TO FIND Med Name: [facility] ??? melatonin 10 mg Capsule Take 10 mg by mouth nightly. ??? buPROPion XL (Wellbutrin XL) 150 mg Tablet Extended Release 24 hr Take 150 mg by mouth every morning. ??? fish oil-omega-3 fatty acids 500 mg Capsule Take 500 mg by mouth daily. ??? gabapentin (Neurontin) 300 mg Capsule Take 2 capsules by mouth nightly. (Patient taking differently: Take 600 mg by mouth 2 times daily. 300 mg in am and 600 mg at night) 180 capsule 3 ??? EPINEPHrine 0.3 mg/0.3 mL Auto-Injector Inject 3 mLs into the muscle as needed. ??? calcium carbonate (Tums) 200 mg calcium (500 mg) Tablet, Chewable Take 1 tablet by mouth daily as needed for Heartburn. ??? metoprolol succinate XL (Toprol-XL) 25 mg Tablet Sustained Release 24 hr Take 25 mg by mouth daily. ??? Xarelto 20 mg Tablet Take 20 mg by mouth daily. ??? cetirizine (ZyrTEC) 10 mg Tablet Take 10 mg by mouth daily. ??? fluticasone propionate (FLONASE) 50 mcg/actuation [place], Suspension 1 spray by Each Nare route daily as needed. ??? Bifidobacterium infantis (ALIGN) 4 mg Capsule Take by mouth. ??? ezetimibe (ZETIA) 10 mg Tablet take 1 tablet by mouth once daily 0 ??? losartan (COZAAR) 100 mg Tablet Take 100 mg by mouth daily. ??? acetaminophen/diphenhydramine (TYLENOL PM ORAL) Take 1 tablet by mouth nightly as needed. ??? cholecalciferol, Vitamin D3, 1,000 unit Tablet Take 1,000 Units by mouth daily. ??? Calcium 500 mg Tab Take 500 mg by mouth daily. ??? nystatin (MYCOSTATIN) powder Apply topically 3 times daily as needed. ??? ketoconazole (NIZORAL) 2 % cream Apply topically. Mixing with Desonide, under breasts, skin folds on abdomen 2 times daily for 2 weeks, then as needed for maintenance 30 g 2 ??? desonide (DESOWEN) 0.05 % cream Apply topically. Mix with Ketoconazole, under breasts, skin folds on abdomen 2 times daily for 2 weeks, then as needed for maintenance 30 g 2 ??? acetaminophen (TYLENOL) 500 mg tablet Take 1,000 mg by mouth 2 times daily. ??? loperamide (IMMODIUM) 2 mg tablet Take 2 mg by mouth 4 times daily as needed. ??? multivitamin (THERAGRAN) tablet Take 1 tablet by mouth daily. ??? OXYGEN-AIR DELIVERY SYSTEMS (HORIZON NASAL CPAP SYSTEM MISC) by [facility]Non- Drug; Combo Route) route nightly. ??? levothyroxine (SYNTHROID) 25 mcg tablet Take 37.5 mcg by mouth daily. No facility-administered medications prior to visit. Allergies: is allergic to latex, sulfa (sulfonamide antibiotics), codeine, adhesive tape, adhesive tape-silicones, gluten, hydrocodone-acetaminophen, lactose, and penicillins. 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 Past Surgical History: has a past surgical history that includes created by interface; created by interface; Lumbar spine surgery (1975); section (1986); Toe Surgery; endoscopy, upper gi, simple primary exam; Upper gastrointestinal endoscopy; Cholecystectomy (2006); Beatty tooth extraction; Ca taract removal with implant (Bilateral); Colonoscopy, Biopsy (41490) (N/A, 06/30/2018); Upper Gi Endoscopy, Biopsy (86497) (N/A, 06/30/2018); and Colonoscopy (07/22/2016). Family History: family history includes Arthritis in her father, mother, and sister; Chronic Obstructive Pulmonary Disease in her father; Connective Tissue Disease in her daughter; Depression in her brother; Diabetes in her mother; Heart Disease in her father and mother; Hyperlipidemia in her father and mother; Hypertension in her mother. Social History: reports that she has never smoked. She has never used smokeless tobacco. She reportscurrent alcohol use of about 2.0 - 3.0 standard drinks of alcohol per week. She reports that she does not use drugs. No Physical Examination performed during this telemedicine visit Laboratory studies, imaging, and procedures (my review of prior records): 1. Stool culture; negative/normal 2. Gastrin, VIP 04/08/2018; negative/normal 3. EGD 06/30/18; normal esophagus. z-line irregular. medium-sized hatal hernia. multiple gastric polyps. normal duodenum. Bx: 4. Colonoscopy 06/30/18; diverticulosis. Otherwise normal 5. NM Octreoscan 06/16/18; negative 6. A small bowel follow-through 08/01/2021; transit time 165 minutes. 7. High resolution anorectal manometry 09/04/2021; 1 out of 3 pushes abnormal with increase in intrarectal pressure and absent or incomplete sphincter relaxation. Normal rectal sensation. Normal balloonexpulsion test. Consider referral to physical therapy for pelvic floor neuromuscular reeducation and rectal sensory balloon retraining Assessment/Plan: Ms. Blanton is a 71 y.o. patient with the following gastrointestinal issues: 1. IBS without gross evidence of celiac disease or IBD on EGD 2019 and up to date on CRC with episodes of abdominal pain and diarrhea with fecal incontinence with an abnormal anorectal manometry, not completely consistent with dyssynergic defecation. Overall symptoms have responded to Citrucel. She may benefit from a physical therapy for neuromuscular reeducation and internal biofeedback. She may also benefit from rectal laxatives. Recommendations: - Referral to physical therapy at [facility] - Continue Citrucel as previously taking - Glycerin suppositories as needed to help facilitate bowel movements - Follow-up as needed Suri Newton APRN [facility] [place] [id number] documented in this encounter Plan of Treatment Upcoming Encounters Date Type Specialty Care Team Description 03/06/2022 Office Visit Cardiology Lizeth Frazier MD [facility] [address] [place] [id number] (Wo rk) 03/18/2022 Office Visit Neurology Donovan Mayer MD [facility] NEUROLOGY DEPT. [place], [place] [address] (Wo rk) 04/24/2022 Appointment Hematology and Oncology 04/24/2022 Office Visit Hematology and Oncology Renea Navraro MD [facility] HEMATOLOGY/ONCOL CLAUDE DEPT. [place], [place] [address] (Wo rk) Scheduled Referrals Name Type Priority Associated Diagnoses Order S chedule Referral to Outpatient Referral Routine Dyssynergic Ordered: Physical Therapy defecation 10/09/2021 documented as of this encounter Visit Diagnoses Diagnosis Dyssynergic defecation Irritable bowel syndrome with constipati on Irritable bowel syndrome documented in this encounter Care Teams Apprentice Plant Attendant Relationship Specialty Start Date End Date Ingrid Espinosa APRN PCP - General Internal Medicine 07/28/[address] [place] [address] documented as of this encounter
--- OUTSIDE RECORDS SUMMARY | 2021-12-21 00:32 | XMS_ITS | Encounter Summary ---
:1950 Author Organization [facility] [place] [address] Care Team Providers Name Role Phone Guillermina Espinosayce Uriel PALACIOS Primary Care Provider Encounter Details Date Type Department Care Team Description 11/14/2021 Hospital Encounter Hematology and CLL ([facility] [place] [facility] [place] [address] Social History Tobacco Use Types Packs/Day Years [...] on file documented as of this encounter Medications at Time of Discharge Medication Sig Dispensed Refills Start Date End Date Allergy Relief, Take 180 mg by mouth 0 10/11/2021 fexofenadine, 180 mg daily as needed. Tablet nystatin, bulk, 100 by Other route. 0 million unit Powder traZODone (Desyrel) 50 mg Take 50 mg by mouth 0 0 08/28/2021 Tablet daily as needed. UNABLE TO FIND Med Name: [facility] 0 melatonin 10 mg Capsule Take 10 mg by mouth 0 nightly. buPROPion XL (Wellbutrin Take 150 mg by mouth 0 XL) 150 mg Tablet every morning. Extended Release 24 hr fish oil-omega-3 fatty Take 500 mg by mouth 0 acids 500 mg Capsule daily. gabapentin (Neurontin) Take 2 capsules by 180 capsule 3 02/16 300 mg Capsule mouth nightly. EPINEPHrine 0.3 mg/0.3 mL Inject 3 mLs into 0 04/2020 Auto-Injector the muscle as needed. calcium carbonate (Tums) Take 1 tablet by 0 200 mg calcium (500 mg) mouth daily as Tablet, Chewable needed for Heartburn. metoprolol succinate XL Take 25 mg by mouth 0 (Toprol-XL) 25 mg Tablet daily. Sustained Release 24 hr Xarelto 20 mg Tablet Take 20 mg by mouth 0 2019 daily. cetirizine (ZyrTEC) 10 mg Take 10 mg by mouth 0 Tablet daily. fluticasone propionate 1 spray by Each Nare 0 (FLONASE) 50 route daily as mcg/actuation [place], needed. Suspension Bifidobacterium infantis Take by mouth. 0 (ALIGN) 4 mg Capsule ezetimibe (ZETIA) 10 mg take 1 tablet by 0 2018 Tablet mouth once daily losartan (COZAAR) 100 mg Take 100 mg by mouth 0 Tablet daily. acetaminophen/diphenhydra Take 1 tablet by 0 mine (TYLENOL PM ORAL) mouth nightly as needed. cholecalciferol, Vitamin Take 1,000 Units by 0 D3, 1,000 unit Tablet mouth daily. Calcium 500 mg Tab Take 500 mg by mouth 0 daily. nystatin (MYCOSTATIN) Apply topically 3 0 powder times daily as needed. ketoconazole (NIZORAL) 2 Apply topically. 30 g 2 03/02 % creamIndications: Mixing with Intertrigo Desonide, under breasts, skin folds on abdomen 2 times daily for 2 weeks, then as needed for maintenance desonide (DESOWEN) 0.05 % Apply topically. Mix 30 g 2 03/02/2012 creamIndications: with Ketoconazole, Intertrigo under breasts, skin folds on abdomen 2 times daily for 2 weeks, then as needed for maintenance acetaminophen (TYLENOL) Take 1,000 mg by 0 500 mg tablet mouth 2 times daily. loperamide (IMMODIUM) 2 Take 2 mg by mouth 4 0 mg tablet times daily as needed. multivitamin (THERAGRAN) Take 1 tablet by 0 tablet mouth daily. OXYGEN-AIR DELIVERY by Mis.(Non-Drug; 0 SYSTEMS (HORIZON NASAL Combo Route) route CPAP SYSTEM MIS) nightly. levothyroxine (SYNTHROID) Take 37.5 mcg by 0 25 mcg tablet mouth daily. documented as of this encounter Plan of Treatment Upcoming Encounters Date Type Specialty Care Team Description 03/06/2022 Office Visit Cardiology Martha Frazier MD [facility] [place], [place] [address] (Wo rk) 03/18/2022 Office Visit Neurology Donovan Mayer MD [facility] NEUROLOGY DEPT. [place], [place] [address] (Wo rk) 04/24/2022 Appointment Hematology and Oncology 04/24/2022 Office Visit Hematology and Oncology Renea Navarro MD [facility] HEMATOLOGY/ONCOL [place] DEPT. [place], [place] [address] (Wo rk) documented as of this encounter Procedures Procedure Name Priority Date/Time Associated Comments Diagnosis SCAN, PERIPHERAL BLOOD Routine 11/14/2021 2:30 PM Results for this EDT procedure are i n the results section. HEMOGRAM Routine 11/14/2021 2:30 PM CLL (chronic Results f or this EDT lymphocytic procedure are i n leukemia) the results section. DIFFERENTIAL, Routine 11/14/2021 2:30 PM CLL (chronic Results for this AUTOMATED EDT lymphocytic procedure are i n leukemia) the results section. HC CBC,PLT & AUTO DIFF Routine 11/14/2021 2:30 PM CLL (chronic EDT lymphocytic leukemia) HC VENIPUNCTURE Routine 11/14/2021 2:30 PM CLL (chronic Result s for this EDT lymphocytic procedure are i n leukemia) the results section. COMPREHENSIVE Routine 11/14/2021 2:30 PM CLL (chronic Results for this METABOLIC PANEL EDT lymphocytic procedure ar e in (NON-FASTING) leukemia) the results section. documented in this encounter Results Scan, Peripheral Blood (11/14/2021 2:30 PM EDT) Analysis Performed At Patho logist Time Signature Plat Estimate Normal [facility] RBC Morphology Normal [facility] Smudge Cells Present [facility] Specimen Anatomical Collection Method Collection Time Receive d Time (Source) Location / / Volume Laterality Blood 11/14/2021 2:30 PM 2 2:38 EDT PM EDT Resulting Agency Comment Spec In Lab Virgilio Navarro MD HEMATOLOGY ORDERABLES Performing Organization Address City/State/[place] [address] (ABNORMAL) Differential, Automated (11/14/2021 2:30 PM EDT) Patholo gist Method Time Signature Neutrophils % 4.1 % [facility] Neutr Abs (ANC) 3.03 1.70 - [facility] 6.10 [facility] x10(3)/[facility] LABORATORY Lymphocytes % 92.9 % [facility] Lymphocytes Abs 68.4 (H) 0.9 - 3.2 [facility] x10(3)/[facility]ATORY Monocytes % 2.4 % [facility] Monocyte Abs 1.8 (H) 0.3 - 0.9 [facility] x10(3)/[facility]ORY Eosinophils % 0.4 % [facility] Eosinophils Abs 0.3 0.0 - 0.4 [facility] x10(3)/[facility] Basophils % 0.1 % [facility] Basophils Abs 0.1 0.0 - [address] [facility] x10(3)/[facility]ORY Immature Gran % 0.10 % [facility] Comment: Immature granulocytes(IG's)percentage an d absolute count will include metamyelocytes, myelocytes, and promyelo cytes. Blood smears from CBCs yielding IG's will be scanned manually for concor dance. If this scan disagrees with the automated IG or if promyelocytes are not ed, a manual differential will be performed. Betty Gran Abs 0.07 (H) 0.00 - 0.04 x10(3)/[facility] LABORATORY Specimen Anatomical Collection Method Collection Time Receive d Time (Source) Location / / Volume Laterality Blood 11/14/2021 2:30 PM 2 2:38 EDT PM EDT Resulting Agency Comment Spec In Lab Virgilio Navarro MD HEMATOLOGY ORDERABLES Performing Organization Address City/State/[place] [address] (ABNORMAL) Hemogram (11/14/2021 2:30 PM EDT) [facility] gist Method Time Signature WBC 73.6 4.0 - 9.5 [facility] ([facility] x[facility](3[facility] LABORATORY RBC 4.61 4.00 - MARTHA [place] 5.21 [facility] x10(6)/[facility] LABORATORY Hemoglobin 13.7 11.7 - [facility] 15.[facility] g/dL [facility] Hematocrit 43.2 35.7 - [facility] 45.8 % [facility] MCV 93.7 82.6 - [facility] 94.4 [facility] LABORATORY MCH 29.7 27.1 - [facility] [place] 32.0 pg [facility] MCHC 31.7 31.7 - [facility] 35.0 g/dL [facility] Platelets 223 145 - 357 [facility] x10(3)/[facility] LABORATORY RDWSD 46.1 (H) 37.0 - [facility] [place] 46.0 [facility] LABORATORY RDWCV 13.5 11.5 - [facility] [place] 14.1 % [facility] MPV 10.8 7.6 - 12.9 [facility] LABORATORY nRBC % Auto 0.0 % [facility] nRBC Abs Auto 0.000 0.000 - [facility] 0.000 [facility] x10(3)/[facility] LABORATORY Specimen Anatomical Collection Method Collection Time Receive d Time (Source) Location / / Volume Laterality Blood 11/14/2021 2:30 PM 2 2:38 EDT PM EDT Resulting Agency Comment Spec In Lab Virgilio Navarro MD HEMATOLOGY ORDERABLES Performing Organization Address City/State/[place] [address] Comprehensive metabolic panel (non-fasting) (11/14/2021 2:30 PM EDT) P athologist Signature Glucose Lvl 108 65 - [address] [facility] mg/dL [facility] Comment: Diabetes: >=200 mg/dL plus symp toms BUN 18 8 - 18 mg/dL [facility] Creatinine 0.84 0.70 - 1.20 mg/dL [facility] Sodium 144 135 - 145 mmol/L [...] estions. Chloride 105 98 - 107 mmol/L [facility] CO2 31 22 - 31 mmol/L [facility] Anion Gap 8 5 - 15 mmol/L [facility] Calcium 9.9 8.5 - 10.5 mg/dL [facility] Total Protein 6.5 6.1 - 8.0 g/dL [facility] Albumin 4.7 3.2 - 5.2 g/dL [facility] AST 28 0 - 30 unit/L [facility] ALT 19 0 - 30 unit/L [facility] Alk Phos 72 35 - 105 unit/L [facility] Total Bilirubin 0.3 0.2 - 1.3 mg/dL [facility] Estimated GFR 74 >=60 mL/min/1.73 m?? [facility] Comment: This patient's estimated GFR [...] Organization Address City/State/[place] [address] (ABNORMAL) Lactate Dehydrogenase (11/14/2021 2:30 PM EDT) P athologist Signature LDH 266 (H) 110 - 220 [facility] unit/L [facility] Specimen Anatomical Collection Method Collection Time Receive d Time (Source) Location / / Volume Laterality Blood 11/14/2021 2:30 PM 2 2:38 EDT PM EDT Resulting Agency Comment Spec In Lab Virgilio Navarro MD CHEMISTRY ORDERABLES Performing Organization Address City/State/[place] [address] documented in this encounter Visit Diagnoses Diagnosis CLL (chronic lymphocytic leukemia) Chronic lymphoid leukemia, without menti on of having achieved remission documented in this encounter Care Teams Sausage Inspector Relationship Specialty Start Date End Date Ingrid Espinosa APRN PCP - General Internal Medicine 07/28/[address] [place] [address] [place] [address] documented as of this encounter
--- OUTSIDE RECORDS SUMMARY | 2021-12-21 00:32 | XMS_ITS | Encounter Summary ---
:1950 Author Organization [facility] [place] [address] Care Team Providers Name Role Phone Ingrid Espinosa APRN Primary Care Provider Reason for Referral Consultation (Routine) - Authorized Specialty Diagnoses / Procedures Referred By Contact Refer red To Contact Ophthalmology Diagnoses Pre-diabetes Status post cataract extraction, unspecified laterality Ingrid Espinosa, FERMENTER HELPER Angel, [place], OD [address] [address] [place] OPHTHALMOLOG Y DEPT [id number] [place] [address] Fax: Referral ID Status Reason Start Expiration Visits Visits Date Date Requested Authorized [id number] Authorized Consult, 09/10/2021 09/10/2022 6 6 Test & Treat PCP Updated and/or Approved Encounter Details Date Type Department Care Team Description 09/10/2021 Transcribe Orders eDH Incoming Ingrid Espinosa, Pre-di abetes; Referrals FERMENTER HELPER Status post cataract extraction, unspeci fied laterality [phone] [address] [facility] [place] [address] Social History Tobacco Use Types Packs/Day Years [...] on file documented as of this encounter Plan of Treatment Upcoming Encounters Date Type Specialty Care Team Description 03/06/2022 Office Visit Cardiology Lizeth Frazier MD [facility] [place], [place] [address] (Wo rk) 03/18/2022 Office Visit Neurology Donovan Mayer MD [facility] NEUROLOGY DEPT. [place], [place] [address] (Wo rk) 04/24/2022 Appointment Hematology and Oncology 04/24/2022 Office Visit Hematology and Oncology Renea Navarro MD [facility] HEMATOLOGY/ONCOL CLAUDE DEPT. [place], [place] [address] (Wo rk) Scheduled Referrals Name Type Priority Associated Order Schedule Diagnoses Referral to Outpatient Referral Routine Pre-diabetes Ordered: Ophthalmology Status post 09/10/2021 cataract extraction, unspecified laterality documented as of this encounter Visit Diagnoses Diagnosis Pre-diabetes Other abnormal glucose Status post cataract extraction, unspeci fied laterality documented in this encounter Care Teams Infant And Toddler Teacher Relationship Specialty Start Date End Date Ingrid Espinosa APRN PCP - General Internal Medicine 07/28/17 [address] [place] [address] documented as of this encounter
--- OUTSIDE RECORDS SUMMARY | 2021-12-21 00:32 | XMS_ITS | Clinical Summary ---
:1950 Author Organization [place] [place] [address] Care Team Providers Name Role Phone Ingrid Espinosa Uriel PALACIOS Primary Care Provider Allergies Active Allergy Reactions Severity Noted Date Comments Adhesive Tape 12/01/2019 Adhesive Tape-Silicones Rash 12/20/2011 Codeine Other (See Comments) Medium 12/20/[address] schmidt Gluten 11/12/2010 Hydrocodone-Acetaminophe Other (See Comments) 12/20/19 12 Mental Status n Changes Lactose 06/23/2019 fodmap diet Latex Rash, Other (See High Red welts Comments) Penicillins 10/05/2014 Sulfa (Sulfonamide Rash High Antibiotics) Medications Medication Sig Dispensed Refills Start Date End Date Status levothyroxine Take 37.5 mcg by 0 Active (SYNTHROID) 25 mcg mouth daily. tablet OXYGEN-AIR DELIVERY by 0 Active SYSTEMS (HORIZON Misc.(Non-Drug; NASAL CPAP SYSTEM Combo Route) MISC) route nightly. loperamide (IMMODIUM) Take 2 mg by 0 Active 2 mg tablet mouth 4 times daily as needed. multivitamin Take 1 tablet by 0 Active (THERAGRAN) tablet mouth daily. acetaminophen Take 1,000 mg by 0 Active (TYLENOL) 500 mg mouth 2 times tablet daily. ketoconazole Apply topically. 30 g 2 03/02/2012 Active (NIZORAL) 2 % Mixing with creamIndications: Desonide, under Intertrigo breasts, skin folds on abdomen 2 times daily for 2 weeks, then as needed for maintenance desonide (DESOWEN) Apply topically. 30 g 2 03/02/2012 Active 0.05 % Mix with creamIndications: Ketoconazole, Intertrigo under breasts, skin folds on abdomen 2 times daily for 2 weeks, then as needed for maintenance Calcium 500 mg Tab Take 500 mg by 0 Active mouth daily. nystatin (MYCOSTATIN) Apply topically 3 0 Active powder times daily as needed. cholecalciferol, Take 1,000 Units 0 Active Vitamin D3, 1,000 by mouth daily. unit Tablet acetaminophen/diphenh Take 1 tablet by 0 Active ydramine (TYLENOL PM mouth nightly as ORAL) needed. losartan (COZAAR) 100 Take 100 mg by 0 Active mg Tablet mouth daily. ezetimibe (ZETIA) 10 take 1 tablet by 0 07/29/2018 Active mg Tablet mouth once daily Bifidobacterium Take by mouth. 0 Active infantis (ALIGN) 4 mg Capsule fluticasone 1 spray by Each 0 12/03/2018 A ctive propionate (FLONASE) Nare route daily 50 mcg/actuation as needed. Celoron, Suspension cetirizine (ZyrTEC) Take 10 mg by 0 Active 10 mg Tablet mouth daily. Xarelto 20 mg Tablet Take 20 mg by 0 12/01/2019 Active mouth daily. metoprolol succinate Take 25 mg by 0 Active XL (Toprol-XL) 25 mg mouth daily. Tablet Sustained Release 24 hr EPINEPHrine 0.3 Inject 3 mLs into 0 12/29/2019 Active mg/0.3 mL the muscle as Auto-Injector needed. calcium carbonate Take 1 tablet by 0 Active (Tums) 200 mg calcium mouth daily as (500 mg) Tablet, needed for Chewable Heartburn. gabapentin Take 2 capsules 180 capsule 3 02/29/2020 Active (Neurontin) 300 mg by mouth nightly. Capsule Additional Information Patient taking differently: 600 mg Oral 2 TIMES DAILY, 300 mg in am and 600 mg at night, Reported on 12/13/2020 fish oil-omega-3 fatty acids 500 Take 500 mg by mouth daily. 0 Active mg Capsule melatonin 10 mg Capsule Take 10 mg by mouth nightly. 0 Active buPROPion XL (Wellbutrin XL) 150 Take 150 mg by mouth every 0 Active mg Tablet Extended Release 24 hr morning. UNABLE TO FIND Med Name: Selwyn 0 Active nystatin, bulk, 100 million unit by Other route. 0 Active Powder traZODone (Desyrel) 50 mg Tablet Take 50 mg by mouth daily as 0 08/28/2021 Active needed. Allergy Relief, fexofenadine, Take 180 mg by mouth daily as 0 10/11/2021 Active 180 mg Tablet needed. Active Problems Problem Noted Date Nephrolithiasis 03/05/2021 Closed displaced comminuted fracture of shaft of right fibula 03/05/2021 Tick bite 03/05/2021 Abnormality of nail tissue 10/26/2020 Incontinence of feces 05/26/2020 Mass of left breast 05/02/2020 Chronic headache 01/12/2020 Atrial fibrillation 12/10/2019 Closed rib fracture 05/26/2019 Irritable bowel syndrome 05/26/2019 Hip pain 05/26/2019 Edema of lower extremity 05/26/2019 Paresthesias 05/26/2019 Urinary tract infection 05/26/2019 Bursitis 05/26/2019 Diarrhea 05/26/2019 Backache 05/26/2019 Anxiety 05/26/2019 Tendonitis 05/26/2019 Joint swelling 05/26/2019 GERD (gastroesophageal reflux disease) 10/15/2017 CLL (chronic lymphocytic leukemia) 10/15/2017 Overview: ?? Presentation: Incidentally noted to h ave inguinal and para aortic TIAN on MRI performed for back pain which was confirmed on f/up CT. F/up CBC on 09/24/17 revealed WBC of 20.5, with 84% lymphocytes (ALC of 17.4), Hgb of 14.8, MCV: 90, Plt cou nt: 159. She is referred to [facility] for further evaluation of the incidentally noted TIAN and lymphocytosis. ?? Work up ?? Imaging: CT a/p: (07/22/17): mildly enl arged retroperitoneal , b/l iliac, inguinal LNs, unchanged compared to CT on 03/30/17; mild splenomegaly at 13.2cm; b/l renal angiomyolipomas stable compared to 05/2016, b/l non obstructing renal stones ; Fatty liver, large hiatal hernia; ?? Peripheral Blood flow: Monoclonal, ka ppa-restricted CD5+ CD23+ B-cell population , consistent with CLL. ZAP70 positive, CD38 positive (partial, 25%); ?? LDH and B2MG: normal ?? FISH: POSITIVE for SERGO/11q22.3 deleti on, and 13q14.3 deletion ?? 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 Treatment: Hasn't required any treatm ent yet. On watch and wait approach. Flat feet, bilateral 12/31/2016 Bilateral primary osteoarthritis of hip 06/07/2014 Other specified visual disturbances 05/23/2014 Candidal intertrigo 03/02/2012 Seborrheic keratosis, inflamed 03/02/2012 Angiomyolipoma of kidney 03/02/2012 Right ankle pain 01/27/2012 Hypercoagulable state 12/20/2011 Overview: Overview: A. Provoked LLE DVT post- after 1 month bedrest and , 1986. Treated for 3 months. B. R popliteal and posterior tibial DVT 2005. i. Repeat U/S OSH 2006 normal. C. group home anticoagulation since 2005. D. Thrombosis panel off warfarin 2011 no ndiagnostic. D-dimer <200. Right knee pain 08/26/2011 Brachial plexus neuropathy 07/09/2011 Postmenopausal bleeding 06/11/2011 Solar lentigo 03/11/2011 Schreiber angioma 03/11/2011 Lumbar radiculopathy 10/19/2010 Carcinoid tumor 10/19/2010 Migraine 10/19/2010 Hypothyroid 10/19/2010 Sleep apnea 10/19/2010 Depression 10/19/2010 Hypertension 10/19/2010 Obesity 10/19/2010 Elevated cholesterol 10/19/2010 History of malignant carcinoid tumor of stomach 2006 Heart murmur previously undiagnosed 05/05/2002 Obstructive sleep apnea syndrome in adult 05/19/1990 CIS - Tinea pedis Gastric polyp DVT (deep venous thrombosis) Chronic pain disorder Thoracic outlet syndrome Systolic murmur Allergic fungal sinusitis Hyperlipidemia Encounters Date Type Specialty Care Team Description 11/14/2021 Office Visit Hematology and Oncology Ramon CLL (chronic SwaroopaMD lymphocytic Haydee Thakur leukemia) Jolene Stewart MD 11/14/2021 [facility] Hematology and Oncology CLL (chronic Encounter lymphocytic leukemia) 10/17/2021 Orders Only Gastroenterology [place], Dyssynergic Suribrando Orellana APRN defecation 10/09/2021 Office Visit Gastroenterology [place], Dyssynergic defecation; Suri Orellana APRN Irritable candi l syndrome with constipation from Last 3 Months Immunizations Name Administration Dates Next Due Influenza Vaccine PF, Quadrivalent 02/09/2020, 02/22/2019, 1 05/23/2017, 02/12/2017 Pneumococcal Conjugate (13 Valent) 06/07/2014 Pneumococcal Polyvalent 23 07/16/2017, 03/09/2007 Td Vaccine, Absorbed, PF, Adult 11/16/2002 Tdap Vaccine 10/18/2019, 10/22/2012, 05/04/2012 Zoster Vaccine, Live 02/06/2012 Zoster, Recombinant 03/29/2020, 01/27/2020 Family History Medical History Relation Comments Depression Brother Connective Tissue Disease Daughter Arthritis Father Chronic Obstructive Pulmonary Disease Father Heart Disease Father Hyperlipidemia Father Arthritis Mother Diabetes Mother Heart Disease Mother Hyperlipidemia Mother Hypertension Mother Arthritis Sister Relation Status Comments Brother Daughter Alive elizabeth danlos Father Mother Sister Alive Social History Tobacco Use Types Packs/Day Years [...] Assigned at Date Recorded Not on file Last Filed Vital Signs Vital Sign Reading [...] Mass Index 31.19 11/14/2021 2:44 PM EDT Plan of Treatment Upcoming Encounters Date Type Specialty Care Team Description 03/06/2022 Office Visit Cardiology Lizeth Frazier MD [facility] [place] [address] (Wo rk) 03/18/2022 Office Visit Neurology Donovan Mayer MD [facility] NEUROLOGY DEPT. [place], [place] [address] (Wo rk) 04/24/2022 Appointment Hematology and Oncology 04/24/2022 Office Visit Hematology and Oncology Renea Navarro MD [facility] er HEMATOLOGY/ONCOL CALIY DEPT. [place], [place] [address] (Wo rk) Health Maintenance Due Date Last Done Comments Covid-19 Vaccine (#1) 1954 Hepatitis C Screening 1967 Lipid Screening 1967 Breast Cancer Share Decision 1989 Needed Breast Cancer screening 1999 Advance Directive 2004 Bone Density Scan 2014 Influenza (Flu) vaccine (1 of 1 - 01/17/2022 02/09/2020, , Influenza standard series) 03/23/2018, Additiona l history exists Colonoscopy 06/30/2028 06/30/2018, 06/30/2018 Tetanus vaccine 10/17/2029 10/18/2019, 10/22/2012, 05/04/2012, Additional history exists Pneumoccocal Vaccine: 65+ Completed 07/16/2017, 06/07/2014 , 03/09/2007 Tdap adult Completed 10/18/2019, 10/22/2012, 05/04/2012 Zoster vaccine Completed 03/29/2020, 01/27/2020, 02/06/2012 Procedures Procedure Name Priority Date/Time Associated Comments Diagnosis SCAN, PERIPHERAL BLOOD Routine 11/14/2021 2:30 PM Results for this EDT procedure are i n the results section. DIFFERENTIAL, Routine 11/14/2021 2:30 PM CLL (chronic Results for this AUTOMATED EDT lymphocytic procedure are i n leukemia) the results section. HEMOGRAM Routine 11/14/2021 2:30 PM CLL (chronic Results f or this EDT lymphocytic procedure are i n leukemia) the results section. HC CBC,PLT & AUTO DIFF Routine 11/14/2021 2:30 PM CLL (chronic EDT lymphocytic leukemia) COMPREHENSIVE Routine 11/14/2021 2:30 PM CLL (chronic Results for this METABOLIC PANEL EDT lymphocytic procedure ar e in (NON-FASTING) leukemia) the results section. HC VENIPUNCTURE Routine 11/14/2021 2:30 PM CLL (chronic Result s for this EDT lymphocytic procedure are i n leukemia) the results section. from Last 3 Months Results Scan, Peripheral Blood (11/14/2021 2:30 PM EDT) Analysis Performed At Patho logist Time Signature Plat Estimate Normal [facility] RBC Morphology Normal [facility] Smudge Cells Present [facility] Specimen Anatomical Collection Method Collection Time Receive d Time (Source) Location / / Volume Laterality Blood 11/14/2021 2:30 PM 2 2:38 EDT PM EDT Resulting Agency Comment Spec In Lab Virgilio Navarro MD HEMATOLOGY ORDERABLES Performing Organization Address City/State/ZIP Code Phon e Number [place] [phone] (ABNORMAL) Hemogram (11/14/2021 2:30 PM EDT) Patholo gist Method Time Signature WBC 73.6 4.0 - 9.5 [place] (Critical) x10(3)/[facility] LABORATORY RBC 4.61 4.00 - [place] 5.21 [facility] x10(6)/[facility] LABORATORY Hemoglobin 13.7 11.7 - [place] 15.5 g/dL [facility] Hematocrit 43.2 35.7 - [place] 45.8 % [facility] MCV 93.7 82.6 - [place] 94.[address] [facility] MCH 29.7 27.1 - [place] 32.[address] [facility] MCHC 31.7 31.7 - [place] 35.0 g/dL [facility] Platelets 223 145 - 357 [place] x10(3)/[facility] LABORATORY RDWSD 46.1 (H) 37.0 - [facility] 46.0 [facility] LABORATORY RDWCV 13.5 11.5 - [facility] 14.1 % [facility] LABORATORY MPV 10.8 7.6 - 12.9 [facility] LABORATORY nRBC % Auto 0.0 % [facility] nRBC Abs Auto 0.000 0.000 - [facility] 0.000 [facility] x10(3)/[facility] LABORATORY Specimen Anatomical Collection Method Collection Time Receive d Time (Source) Location / / Volume Laterality Blood 11/14/2021 2:30 PM 2 2:38 EDT PM EDT Resulting Agency Comment Spec In Lab Virgilio Navarro MD HEMATOLOGY ORDERABLES Performing Organization Address City/State/[place] [address] (ABNORMAL) Differential, Automated (11/14/2021 2:30 PM EDT) [facility] gist Method Time Signature Neutrophils % 4.1 % [facility] Neutr Abs (ANC) 3.03 1.70 - [facility] 6.10 [facility] x10(3)[facility] LABORATORY Lymphocytes % 92.9 % [facility] Lymphocytes Abs 68.4 (H) 0.9 - 3.2 [facility] x10(3)/[facility] LABORATORY Monocytes % 2.4 % [facility] Monocyte Abs 1.8 (H) 0.3 - 0.9 [facility] x10(3)[facility] LABORATORY Eosinophils % 0.4 % [facility] Eosinophils Abs 0.3 0.0 - 0.4 [facility] x10(3)/[facility] LABORATORY Basophils % 0.1 % [facility] Basophils Abs 0.1 0.0 - 0.1 [facility] x10(3)/[facility] LABORATORY Immature Gran % 0.10 % [facility] Comment: Immature granulocytes(IG's)percentage an d absolute count will include metamyelocytes, myelocytes, and promyelo cytes. Blood smears from CBCs yielding IG's will be scanned manually for concor dance. If this scan disagrees with the automated IG or if promyelocytes are not ed, a manual differential will be performed. Betty Gran Abs 0.07 (H) 0.00 - 0.04 x10(3)/mcL [facility] Specimen Anatomical Collection Method Collection Time Receive d Time (Source) Location / / Volume Laterality Blood 11/14/2021 2:30 PM 2 2:38 EDT PM EDT Resulting Agency Comment Spec In Lab Virgilio Navarro MD HEMATOLOGY ORDERABLES Performing Organization Address City/[facility]/ZIP Code Phon e Number [address] (ABNORMAL) Lactate Dehydrogenase (11/14/2021 2:30 PM EDT) athologist Signature LDH 266 (H) 110 - 220 [facility] LABORATORY Specimen Anatomical Collection Method Collection Time Receive d Time (Source) Location / / Volume Laterality Blood 11/14/2021 2:30 PM 2 2:38 EDT PM EDT Resulting Agency Comment Spec In Lab Virgilio Navarro MD CHEMISTRY ORDERABLES Performing Organization Address City/State/[place] [address] Comprehensive metabolic panel (non-fasting) (11/14/2021 2:30 PM EDT) P athologist Signature Glucose Lvl 108 65 - 199 [facility] mg/dL [facility] Comment: Diabetes: >=200 mg/dL plus symp toms BUN 18 8 - 18 mg/dL [facility] Creatinine 0.84 0.70 - 1.20 mg/dL [facility] Sodium 144 135 - 145 mmol/L [facility] Potassium 4.4 3.5 - 5.0 mmol/L [facility] Comment: Please note: ??Patients with WBC >100,00 0 may have falsely elevated Potassium levels. ??For accurate Potassium quantif ication in these patients send serum separator tube (gold top) for subsequent determinations. ??Contact the Clinical Chemistry Laboratory if there are any qu estions. Chloride 105 98 - 107 mmol/L [facility] CO2 31 22 - 31 mmol/L [facility] Anion Gap 8 5 - 15 mmol/L [facility] Calcium 9.9 8.5 - 10.5 mg/dL [facility] Total Protein 6.5 6.1 - 8.0 g/dL [facility] Albumin 4.7 3.2 - 5.2 g/dL [facility] AST 28 0 - 30 unit/L [facility] ALT 19 0 - 30 unit/L [facility] Alk Phos 72 35 - 105 unit/L [facility] Total Bilirubin 0.3 0.2 - 1.3 mg/dL [facility] Estimated GFR 74 >=60 mL/min/1.73 m?? [facility] Comment: This patient's estimated GFR [...] Organization Address City/State/[place] [address] from Last 3 Months Insurance Payer Benefit Plan / Subscriber ID Effective Dates Phone Addre ss Type Group [employer] [place]UE [id number] 2020-Unique [phone] [address] [place] [employer] t 22 [phone] [place] [address] Advance Directives Latest Code Status on File Code Status Date Activated Date Inactivated Comments Full Code 06/30/2018 1:44 PM 06/30/2018 5:43 PM Does patient have capacity to make decision: Yes Care Teams Burlap Bag Sewer Relationship Specialty Start Date End Date Ingrid Espinosa APRN PCP - General Internal Medicine 07/28/[address] [place], [place] [id number]
--- OUTSIDE RECORDS SUMMARY | 2021-12-21 00:32 | XMS_ITS | Encounter Summary ---
:1950 Author Organization [facility] [place] [address] Care Team Providers Name Role Phone Ingrid Espinosa APRN Primary Care Provider Reason for Referral Physical Therapy (Routine) - Authorized Specialty Diagnoses / Procedures Referred By Contact Refer red To Contact Diagnoses Dyssynergic defecation Suri Newton APRN [facility] Kade castro [place] [address] Referral ID Status Reason Start Expiration Visits Visits Date Date Requested Authorized [id number] Authorized Evaluate and 10/17/2021 04/15/2022 12 12 Treat Encounter Details Date Type Department Care Team Description 10/17/2021 Orders Only [facility]ology at [facility] Srini Newtonsyneralissa [facility] [place]ade [place] [address] [facility] [phone] [place] [address] Social History Tobacco Use Types Packs/Day Years [...] 03/06/2022 Office Visit Cardiology Lizeth Frazier MD [facility] er [place], [place] [address] (Wo rk) 03/18/2022 Office Visit Neurology Donovan Mayer MD [facility] NEUROLOGY DEPT. [place], [place] [address] (Wo rk) 04/24/2022 Appointment Hematology and Oncology 04/24/2022 Office Visit Hematology and Oncology Renea Navarro MD [facility] HEMATOLOGY/ONCOL [place] DEPT. [place], [place] [address] (Wo rk) Scheduled Referrals Name Type Priority Associated Diagnoses Order S chedule Referral to Outpatient Referral Routine Dyssynergic Ordered: Physical Therapy defecation 10/17/2021 documented as of this encounter Visit Diagnoses Diagnosis Dyssynergic defecation documented in this encounter Care Teams Accessioner Relationship Specialty Start Date End Date Ingrid Espinosa APRN PCP - General Internal Medicine 07/28/[address] [place] [address] documented as of this encounter
--- OUTSIDE RECORDS SUMMARY | 2021-12-21 00:33 | XMS_ITS | Encounter Summary ---
:1950 [place] [address] Care Team Providers Name Role Phone Francisca Ingrid Trevino APRN Primary Care Provider Reason for Visit Reason Comments Atrial Fibrillation Hypertension Encounter Details Date Type Department Care Team Description 06/13[facility]; [facility] Essential hypertension [address] [place] [address] [place], [place] [phone] (Work) [phone] Social History Tobacco Use Types Packs/Day Years [...] Sign Reading Time Taken Comments Blood Pressure 120/69 06/13/2020 10:53 AM EST Pulse 75 06/13/2020 10:53 AM EST Temperature - - Respiratory Rate - - Oxygen Saturation - - Inhaled Oxygen Concentration - - Weight 94.8 kg (209 lb) 06/13/2020 10:43 AM EST Height 175.3 cm (5' 9) 06/13/2020 10:43 AM EST Body Mass Index 30.86 06/13/2020 10:43 AM EST documented in this encounter Progress Notes Lizeth Frazier MD - 06/13/2020 10:40 AM EST CARDIOLOGY OUTPATIENT FOLLOW-UP NOTE PRIMARY CARE PROVIDER: Ingrid Espinosa APRN REFERRING PROVIDER: Ingrid Espinosa PROBLEM LIST: Patient Active Problem List Diagnosis ??? Angiomyolipoma of both kidneys ??? Mass of left breast ??? Chronic headache ??? Atrial fibrillation ??? Closed rib fracture ??? Irritable bowel syndrome ??? Hip pain ??? Edema of lower extremity ??? Paresthesias ??? Urinary tract infection ??? Bursitis ??? Diarrhea ??? Backache ??? Anxiety ??? Tendonitis ??? Joint swelling ??? GERD (gastroesophageal reflux disease) ??? CLL (chronic lymphocytic leukemia) ?? Presentation: Incidentally noted to have inguinal and para aortic TIAN on MRI performed for back pain which was confirmed on f/up CT. F/up CBC on 09/24/17 revealed WBC of 20.5, with 84% lymphocytes (ALC of 17.4), Hgb of 14.8, MCV: 90, Plt count: 159. She is referred to [facility] for further evaluation of the incidentally [...] treatment yet. On watch and wait approach. ??? Gastric polyp ??? Bilateral primary osteoarthritis of hip ??? Acute thromboembolism of deep veins of lower extremity ??? Other specified visual disturbances ??? Angiomyolipoma of kidney ??? Candidal intertrigo ??? SK (seborrheic keratosis) ??? Seborrheic keratosis, inflamed ??? Right ankle pain ??? Hypercoagulable state Overview: A. Provoked LLE DVT post- after 1 month bedrest and , 1986. Treated for 3 months. B. R popliteal and posterior tibial DVT 2005. i. Repeat U/S OSH 2006 normal. C. shelter anticoagulation since 2005. D. Thrombosis panel off warfarin 2011 nondiagnostic. D-dimer <200. ??? Right knee pain ??? Brachial plexus neuropathy ??? Postmenopausal bleeding ??? Solar lentigo ??? Schreiber angioma ??? Lumbar radiculopathy ??? Carcinoid tumor ??? Migraine ??? Hypothyroid ??? Sleep apnea ??? Benign renal tumor ??? Depression ??? Hypertension ??? Elevated cholesterol ??? Obesity ??? CIS - Tinea pedis ??? History of malignant carcinoid tumor of stomach ??? Heart murmur previously undiagnosed ??? Chronic pain ??? Obstructive sleep apnea syndrome in adult MEDICATIONS: Current Outpatient Medications Medication Sig Dispense Refill ??? fish oil-omega-3 fatty acids 500 mg Capsule Take 500 mg by mouth daily. ??? gabapentin (Neurontin) 300 mg Capsule Take 2 capsules by mouth nightly. 180 capsule 3 ??? EPINEPHrine 0.3 mg/0.3 [...] Take 10 mg by mouth daily. ??? simvastatin (ZOCOR) 20 mg Tablet Take 20 mg by mouth. ??? fluticasone propionate (FLONASE) 50 mcg/actuation [place], Suspension ??? Bifidobacterium infantis (ALIGN) 4 mg Capsule Take by mouth. ??? ezetimibe (ZETIA) 10 mg Tablet take 1 tablet by mouth once daily 0 ??? losartan (COZAAR) 100 mg Tablet Take 100 mg by mouth daily. ??? colestipol (COLESTID) 1 gram Tablet Take 1 tablet by mouth 2 times daily. 60 tablet 11 ??? acetaminophen/diphenhydramine (TYLENOL PM ORAL) Take by mouth. ??? melatonin 3 mg Tablet Take by mouth. ??? cholecalciferol, Vitamin D3, 1,000 unit Tablet [...] 2 weeks, then as needed for maintenance (Patient not taking: Reported on 02/04/2020) 30 g 2 ??? acetaminophen (TYLENOL) 500 mg tablet Take 1,000 mg by mouth 2 times daily. ??? loperamide (IMMODIUM) 2 mg tablet Take 2 mg by mouth 4 times daily as needed. ??? multivitamin (THERAGRAN) tablet Take 1 tablet by mouth daily. ??? OXYGEN-AIR DELIVERY SYSTEMS (HORIZON NASAL CPAP SYSTEM MISC) by [facility].(Non- Drug; Combo Route) route nightly. ??? levothyroxine (SYNTHROID) 25 mcg tablet Take 37.5 mcg by mouth daily. No current facility-administered medications for this visit. Subjective: Patient ID: Saundra Blanton is a 70 y.o. female. HPI This 70-year-old woman presents for routine follow-up. After her last visit she had an echocardiogram performed down at [facility] which showed normal left ventricular systolic function, mildly enlargedleft atrium, no valvular disease. She has been feeling well overall. She has been active and has been losing weight. She has been snowshoeing and even restarted biking for the first time in decades. She denies experiencing exertional symptoms of shortness of breath or chest discomfort. She has had no palpitations. She has not been dizzy or lightheaded. She has had no problems with bleeding She is compliant with her CPAP but has difficulty with her mask and its fit. This is being addressed Review of System Review of Systems Constitution: Positive for weight loss. Cardiovascular: Negative for chest pain, dyspnea on exertion, leg swelling, near-syncope, palpitations and syncope. Respiratory: Negative for shortness of breath. Family History: Family History Problem Relation Age of Onset ??? Heart Disease Mother ??? Arthritis Mother ??? Diabetes Mother ??? Hypertension Mother ??? Hyperlipidemia Mother ??? Heart Disease Father ??? Arthritis Father ??? Chronic Obstructive Pulmonary Disease Father ??? Hyperlipidemia Father ??? Arthritis Sister ??? Depression Brother ??? Connective Tissue Disease Daughter Social History: Social History Socioeconomic History ??? Marital status: Single Spouse name: Not on file ??? Number of children: 1 ??? Years of education: Not on file ??? Highest education level: Not on file Occupational History ??? 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 Financial resource strain: Not on file ??? Food insecurity Worry: Not on file Inability: Not on file ??? Transportation needs Medical: Not on file Non-medical: Not on file Tobacco Use ??? Smoking status: Never Smoker ??? Smokeless tobacco: Never Used Substance and Sexual Activity ??? Alcohol use: Yes Alcohol/week: 2.0 - 3.0 standard drinks Types: 2 - 3 Glasses of wine per week Frequency: Never ??? Drug use: No Comment: denies illicit drug use or abuse ??? Sexual activity: Not on file Comment: deferred Lifestyle ??? Physical activity Days per week: Not on file Minutes per session: Not on file ??? Stress: Not on file Relationships ??? Social connections Talks on phone: Not on file Gets together: Not on file Attends yazdanism service: Not on file Active member of club or organization: Not on file Attends meetings of clubs or organizations: Not on file Relationship status: Not on file ??? Intimate partner violence Fear of current or ex partner: Not on file Emotionally abused: Not on file Physically abused: Not on file Forced sexual activity: Not on file Other Topics Concern ??? Not on file Social History Narrative ??? Not on file Objective: Physical Exam Vitals signs and nursing note reviewed. Constitutional: Comments: Well-developed well-nourished lost 10 pounds Eyes: Pupils: Pupils are equal, round, and reactive to light. Neck: Musculoskeletal: Normal range of motion. Vascular: No carotid bruit. Cardiovascular: Comments: Heart is regular, 2/6 systolic ejection quality murmur, no gallop Pulmonary: Effort: Pulmonary effort is normal. Breath sounds: Normal breath sounds. Abdominal: Tenderness: There is no abdominal tenderness. Musculoskeletal: Comments: No peripheral edema Skin: General: Skin is warm and dry. EKG today shows sinus rhythm at 64, first-degree AV block, otherwise unremarkable Assessment and Plan: #1. Paroxysmal atrial fibrillation. The patient is in sinus rhythm. She has no symptoms to suggest recurrent dysrhythmia. She is appropriately anticoagulated with Xarelto for stroke prevention Another provider questioned whether the patient needed a Holter monitor. I explained that this does not seem indicated in the absence of symptoms and even if performed would be unlikely to casino change attendant #2. Hypertension. Good blood pressure control on current medications Patient is doing well. She was encouraged to keep up her efforts at exercise and weight loss. We will plan follow-up in approximately 6 months Thank you for the opportunity to participate in this patient's cardiovascular care. All questions were answered and I look forward to the next visit. documented in this encounter Plan of Treatment Upcoming Encounters Date Type Specialty Care Team Description 03/06/2022 Office Visit Cardiology Lizeth Frazier MD [facility] er [place] [place] 0375 (Amado quick) 03/18/2022 Office Visit Neurology Donovan Mayer MD [facility] ER NEUROLOGY DEPT. [place] [address] (Amado quick) 04/24/2022 Appointment Hematology and Oncology 04/24/2022 Office Visit Hematology and Oncology Renea Navarro MD [facility] [place] [place] [address] (Wo rk) documented as of this encounter Visit Diagnoses Diagnosis Paroxysmal atrial fibrillation Atrial fibrillation Essential hypertension Unspecified essential hypertension documented in this encounter Care Teams Set Making Machine Operator Relationship Specialty Start Date End Date Ingrid Espinosa APRN PCP - General Internal Medicine 07/28/17 [address] [place] [address] documented as of this encounter
--- OUTSIDE RECORDS SUMMARY | 2021-12-21 00:33 | XMS_ITS | Encounter Summary ---
:1950 Author Organization [facility] [place] [address] Care Team Providers Name Role Phone Francisca Ingrid Trevino APRN Primary Care Provider Reason for Visit Reason Comments Follow-up Encounter Details Date Type Department Care Team Description 02/19/2021 Office Visit Dermatology at [facility], Actinic keratosis; Petey WHITLEY Lentigines; [address] [facility] Seborrheic keratoses; [place] [phone] Multiple nevi; [phone] [facility] Lopez angioma; RD-DERMATOLOGY History of dysplastic nevus; [place], [place] [address] Neoplasm of uncertain behavior of skin Social History Tobacco Use Types Packs/Day Years [...] on file documented as of this encounter Progress Notes Vanessa Chang - 02/19/2021 1:40 PM EDT Images from the original note were not included. DEPARTMENT OF DERMATOLOGY Medical Dermatology Clinic Provider: Vanessa Chang MD Patient's preferred name Saundra Preferred contact method for results []Phone []myD-H []Letter Detailed phone message OK? yes Are there any other people with whom we may discuss your care? Past Medical History Date, location, treatment Melanoma no Dysplastic nevi Left lateral thigh, severely atypical dysplastic nevus (excised, 06/16/2018) SCC no BCC no AKs no UV Exposure & Protection Other relevant past medical history Family History Details Melanoma no NMSC no Other relevant family history no Social History Occupation: retired Hobbies: Other: Pre-Procedure Questions Details Allergy to lidocaine, epinephrine, Dermabond, chlorhexidine, or adhesives no Bleeding disorder or blood thinners Xeralto Pacemaker, defibrillator, deep brain stimulator, cochlear implant no History of Present Illness: Saundra Blanton is a 70 y.o. Patient returns to clinic today for a full skin exam. Patient reports having hard lesion on her left medial calf. Non tender, present a couple months. Last visit at [facility] Derm: 12/13/2019 Last visit with this provider: Visit date not found Medications: Reviewed in eD-H Allergies: Reviewed in eD-H Skin Examination: Full skin examination: Patient asked to undress to their comfort level. Verbalized that the provider's preference is that patient remove all clothing and that the provider will not examine areas patient elects to keep covered. Examination of the scalp, hair, head, face, ears, neck, chest, axillae, abdomen, back, buttocks, and upper and lower extremities was normal with the exception of the findings below. Genitalia not examined. Assessment/Plan # History of dysplastic nevus No evidence of recurrence. - Continue to monitor. # Subcutaneous Nodule: on the left huertas there is a firm nodule, non-tender - Ddx: includes calcified vessel - Per patient report leg imaged by PCP and lesion is benign - Recommend patient continue to follow with PCP # Lopez Angioma - Multiple, lopez red papules on the trunk and extremities - Discussed benign nature of lesions - No treatment necessary # Seborrheic Keratoses - Scattered, stuck-on, well-demarcated, grossman or brown, waxy or warty papules c/w SKs on the trunk and extremities - Benign. No treatment necessary # Multiple Nevi - Well-demarcated, round or oval, grossman or brown macules and papules with benign morphology on the trunk and extremities - Benign appearing - No treatment necessary # Lentigines - Multiple, uniformly grossman, slightly irregular, polygonal macules c/w lentigos on sun-exposed areas of skin - No treatment necessary # Actinic Keratosis - Dora, hyperkeratotic slightly irregular papule on the left jawline - Combined decision to treat with cryotherapy Procedure Note: Procedure: Destruction of lesions with cryotherapy. Number: 1 Location: as above Discussed procedure and expectations including risks (including risk of hypopigmentation) and benefits. Verbal consent obtained. Frozen with LN2, 15-30 second thaw time, TWICE. There were no complications; the patient tolerated the procedure well. Post-procedure expectations and wound care were reviewed. .# Neoplasm of Uncertain Behavior- 7mm dark brown macule on the right forearm Ddx: Nevus r/o Atypia - Joint decision to proceed with biopsy today Shave Biopsy Procedure Note Location: right forearm Discussed with patient diagnostic options, including the risks and benefits of observation, empiric treatment, and biopsy, including but not limited to recurrence, cosmesis (scar, dyspigmentation), pain, bleeding, infection. Patient verbally understands and elects biopsy. -Time Out Performed: Full Name, , and site(s) confirmed with patient -Site was prepped with isopropyl alcohol. Local anesthesia with 1% lidocaine + 1:100,0000 epinephrine. Lesion biopsied with shave technique using matthew blade. -Hemostasis achieved with aluminum chloride. <1ml blood loss. No complications. Patient toleratedthe procedure well. Specimen(s): Placed in formalin and sent to Pathology for histologic examination. Wound was dressed.Post-op care: daily gentle cleansing of biopsy site, Vaseline and bandage until healed. Figure 1 Photo(s) taken and charted with patient's verbal consent. Other: ??? Sun protection discussed (protective clothing and SPF30+ broad-spectrum sunscreen) RTC: 1 year for FSE [x]Note routed to corporate secretary []Recall placed in scheduling system []Appointment scheduled at checkout Scribe attestation: YU Siegel has performed the documentation for this encounter in the presence of and acting as a scribe for Vanessa Chang MD. I performed the above scribed service and agree with the accuracy of the documentation in this encounter. Reviewed and signed by: Vanessa Chang MD Dermatology [facility] Patient seen and evaluated with staff frame stripper and crusher: Latisha Pandey MD Department of Dermatology [facility] Latisha Pandey MD - 02/19/2021 1:40 PM EDT I directly supervised Dr. Chang during this office visit. Dr. Chang presented the history and physical exam to me. I then saw and examined this patient with Dr. Chang . We reviewed the history and pertinent details and I confirmed the physical findings. I agree with the details of the history and physical exam as documented in Dr. Changs note. Latisha Pandey MD Staff Physician Vanessa Chang - 02/19/2021 1:40 PM EDT DERMATOLOGY TELEPHONE NOTE Saundra Blanton 02/22/2021 [id number] Reason for call: Discuss biopsy results I called the patient this afternoon to discuss the results of her recent biopsy: DIAGNOSIS Right forearm, skin shave biopsy ONLY: - Lentigo and early pigmented ?? seborrheic keratosis We discussed no further treatment needed. Vanessa Chang MD Dermatology Resident documented in this encounter Plan of Treatment Upcoming Encounters Date Type Specialty Care Team Description 03/06/2022 Office Visit Cardiology Lizeth Frazier MD [facility] [address] [place] [address] (Wo rk) 03/18/2022 Office Visit Neurology Donovan Mayer MD [facility] NEUROLOGY DEPT. [place], [place] [address] (Wo rk) 04/24/2022 Appointment Hematology and Oncology 04/24/2022 Office Visit Hematology and Oncology Renea Navarro MD [facility] HEMATOLOGY/ONCOL OGY DEPT. [place], [place] [address] (Wo rk) documented as of this encounter Procedures Procedure Name Priority Date/Time Associated Diagnosis Comme nts SURGICAL PATHOLOGY Routine 02/19/2021 2:05 PM Res ults for this REPORT EDT procedure are i n the results section. SPECIMEN TO Routine 02/19/2021 2:05 PM Neoplasm of Results f or this PATHOLOGY EDT uncertain behavior procedure are in of skin the results section. documented in this encounter Results Surgical Pathology Report (02/19/2021 2:05 PM EDT) Component Value Ref Test Analysis Performed At [facility] Range Method Time Signature Surgical [id number] ? Location: [facility] The signing pathologist has (i) examined the relevant preparation(s) for the MEMORIAL specimen(s) and (ii) rendered or confirmed the diagnosis(es) . HOSPITAL LABORATORY . ?Surgic al Pathology DIAGNOSIS Right forearm, skin shave biopsy ONLY: - Lentigo and early pigmented ?? seborrheic keratosis Electronically signed by: ?Renetta Zepeda MD Verified: ??02/22/2021 11:20 ??Dermatopathologist Performed at: ??-[facility] Dept. of Pathology, [place], [place] SPECIMEN(S) SUBMITTED A - Right forearm, skin shave biopsy ONLY (1) CLINICAL INFORMATION Nevus rule out atypia-7 mm dark brown macule SPECIMEN PROCESSING A - Labeled/Fixative: Right forearm, formalin. Quantity/Size: ??Single, 0.8 x 0.7 x 0.1 cm. Tissue Description: Dark brown irregularly pigmented macule. Sections/Processing: Inked, trisected and entirely submitted in 1 cassette labele d A1. ??MLL Specimen (Source) Anatomical Collection Method Collection Time Re ceived Time Location / / Volume Laterality 02/19/2021 2:05 PM EDT Vanessa Chang MD PATHOLOGY/CYTOLOGY ORDERABLE S Performing Organization Address City/[facility] [address]/[place] [address] Specimen to Pathology (02/19/2021 2:05 PM EDT) Specimen Anatomical Collection Method Collection Time Receive d Time (Source) Location / / Volume Laterality AP Specimen 02/19/2021 2:05 PM 2:05 EDT [address] [facility] - 02/19/2021 2:05 PM EDT Specimen requisition ordered. ??Separate Pathology report to follow Latisha Pandey MD PATHOLOGY/CYTOLOGY ORDERABLE S Performing Organization Address City/State/[place] [address] documented in this encounter Visit Diagnoses Diagnosis Actinic keratosis Lentigines Other dyschromia Seborrheic keratoses Multiple nevi Benign neoplasm of skin, site unspecifie d Lopez angioma Nevus, non-neoplastic History of dysplastic nevus Personal history of diseases of skin and subcutaneous tissue Neoplasm of uncertain behavior of skin documented in this encounter Care Teams Jigger Crown Pouncing Machine Operator Relationship Specialty Start Date End Date Ingrid Espinosa APRN PCP - General Internal Medicine 07/28/17 [address] [place] [address] documented as of this encounter
--- OUTSIDE RECORDS SUMMARY | 2021-12-21 00:33 | XMS_ITS | Encounter Summary ---
:1950 Author Organization [facility] [place] [address] Care Team Providers Name Role Phone Ingrid Espinosa SUZANNE Primary Care Provider Encounter Details Date Type Department Care Team Description 10/26/2020 Office Visit Neurology at [facility] Donovan Mayer, Radiculopathy of lumbar [facility] [id number] NEUROLOGY DEPT. [phone] [place], [place] [address] Social History Tobacco Use Types Packs/Day Years [...] on file documented as of this encounter Patient Instructions Patient InstructionsDonovan Mayer MD - 10/26/2020 11:00 AM EDT I think you are doing quite well. Back problems appear to be stable. If there is a recurrence of back and leg symptoms, injections can be repeated at 6 month intervals if necessary. For the minor worsening, you can increase the dose of gabapentin from 300 mg at night to600 mg at night. I have rewritten your prescription. Headaches appear to be stable. I would do nothing else differently at this time. I would like to see you back in 9 months or sooner if necessary. Donovan Mayer MD Department of Neurology [address] [id number], [place] [address] Pager: [phone], #[phone] Email: [email or web address] documented in this encounter Progress Notes Donovan Mayer MD - 10/26/2020 11:00 AM EDT Neurology clinic note Chief Complaint: Lumbar radiculopathy, headaches, and pain in her feet. History: The patient is seen in followup today. As noted earlier, she has a rather complicated set of medical problems are listed below. A major neurological issue has been migrainous headaches that came under reasonable control. She has also had a symptoms of lumbar radiculopathy with sciatic pain on the right, and pain in bothankles and feet that we thought was mainly arthritic in character but had some neuropathic component. In 2017 she felt her back problems were getting worse. She continued to have some back and leg pain. Her right ankle and foot, where she had the sprain and fracture on the right, improved, but she felt she was getting more radicular pain, and that the right leg was weaker. Her balance remained chronically somewhat bad, but she did quite well walking with a cane. When I saw her in 2017, I thought that her exam was somewhat worse and requested a follow-up MRI scan. This showed degenerative changes at multiple levels but no obviously approachable surgical lesion.There are postsurgical changes at L5-S1. She was referred for an epidural steroid injection which produced significant improvement in her back and leg symptoms.. 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 She was also noted tohave lymphadenopathy as an incidental finding on her MRI scan, and was subsequently diagnosed with chronic lymphocytic leukemia As of 2019 the patient was doing reasonably well. She is not complaining of frequent headaches. She gets bad ones less than once a month. These usually respond to Tylenol, occasionally she needs Percocet. Her lumbar spine problems were addressed with a lumbar epidural steroid injection which has given significant relief of the right sided lumbar radicular symptoms. The right leg feels stronger. She still complains of some loss of sensation. She has been diagnosed with atrial fibrillation and is now on metoprolol and Xarelto. She has not had any stroke symptoms. Problems of diarrhea are persistent but stable. She was felt not to have recurrence, or to require further follow-up, of the carcinoid tumor. Chronic lymphocytic leukemia is being followed conservatively here in hematology. 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 Interval history: As of 2020 she is doing quite well neurologically. She has had no symptoms of stroke. She remains on anticoagulation for atrial fibrillation. She continues to have some back pain and lumbar radicular symptoms that are worse on the right. Headaches remain substantially in remission. He continues to have rather complex medical problems as listed below, the most acute being CLL with a rising white blood cell count. She has follow-up in hematology today PMH: Patient Active Problem List Diagnosis ??? Abnormality of nail tissue ??? History of DVT (deep vein thrombosis) ??? Incontinence of feces ??? Angiomyolipoma of both kidneys ??? Mass [...] Plt count: 159. She is referred to [facility] for further evaluation of the incidentally [...] and wait approach. ??? Gastric polyp ??? Flat feet, bilateral ??? Bilateral primary osteoarthritis of hip ??? [...] B. R popliteal and posterior tibial DVT 2006. i. Repeat U/S OSH 2006 normal. C. alf anticoagulation since 2005. D. Thrombosis panel off [...] ??? Obstructive sleep apnea syndrome in adult ROS: She is eating and sleeping alright. Bowel and bladder function are normal. 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 Physical Exam: There were no vitals taken for this visit. Head, eyes, ears, nose, and throat were normal. Heart and lungs were normal. At baseline she has a sysystolic ejection murmur. Heart rate seems irregular. There are some arthritic deformities of the right ankle and foot. She is mentally intact and speech was normal Cranial nerves were normal. Strength was essentially normal, except there is 1-2weakness of dorsiflexion of the big toe on the right, and 4/5weakness of eversion of the right foot, that appear to be stable. Reflexes were 2+, except noteworthy for depressed (0-1) right ankle reflex, as previously noted. She has patchy sensory loss for pin and vibration in both legs, worse in a right L5 distribution. Cerebellar function was normal. Her gait continues to be somewhat ataxic and antalgic, but better than before. Laboratory Studies: ??? MRI Lumbar Spine wo Contrast (Generic): Mild to moderate degenerative changes only. Medications: Current Outpatient Medications Medication Sig Dispense Refill ? ? budesonide EC (Entocort EC) 3 mg Capsule, Delayed & Ext.Release 3 tabs (9mg) daily x1 month,then 2 tabs (6mg) daily x1 month, then 1 tab (3mg) daily x1 month 180 capsule 0 ??? melatonin 10 mg Capsule Take 10 mg by mouth nightly. ??? calcium citrate (Calcitrate) 200 mg (950 mg) Tablet Take 1 tablet by mouth daily. ??? buPROPion XL (Wellbutrin XL) 150 mg [...] mouth. ??? fluticasone propionate (FLONASE) 50 mcg/actuation Jenera, Suspension 1 spray by Each Nare route [...] SYSTEMS (HORIZON NASAL CPAP SYSTEM MISC) by [facility].(Non- Drug; Combo Route) route nightly. ??? levothyroxine (SYNTHROID) 25 mcg tablet Take 37.5 mcg by mouth daily. No current facility-administered medications for this visit. Impression: The patient is neurologically stable. 1. She has chronic mild lumbar right L4-S1 radiculopathy with symptoms and signs, as noted above, worse on the right. This is now stable and compatible with changes on MRI.. I do not see a clear surgical target. The weakness of toe dorsiflexion and foot eversion on the right is I believe part of the lumbar radiculopathy and has slowly worsened.. Following lumbar epidural steroid injection symptoms are better. At present I would do nothing more. If symptoms worsen, then I think we should give consideration to electrical studies and repeating lumbar epidural steroid injection. Some of the pain in herright foot is, I believe, musculoskeletal and related to the fracture and sprain. She has milder symptoms on the left. She should continue using the brace on the right. 2. She has chronic headaches that are doing fairly well. I think CPAP has helped. She can continue to use Tylenol as needed. 3. For most of her chronic pain complaints she is using tylenol. I think this is reasonable. Meloxicam was discontinued because of the diarrhea.. She has Percocet to use used as needed for bad days, not more than 2 days in a week, so as not to produce analgesic rebound. For prophylaxis she continues to use gabapentin which I think is reasonable. 4. She is therapeutically anticoagulated for atrial fibrillation, and has had no signs and symptoms of stroke. 5. Among other chronic medical problems, the CLL is the one most likely become acute, and she has follow-up with hematology today. She is on her way to the lab to get a CBC. I will see her back in 6 months or sooner if necessary. Thank you for this consultation. Donovan Mayer [place] [address] Pager: [phone], #[phone] Email: [email or web address] CC: Ingrid Navarro documented in this encounter Plan of Treatment Upcoming Encounters Date Type Specialty Care Team Description 03/06/2022 Office Visit Cardiology Lizeth Frazier MD [facility] [address] [address] (Wo rk) 03/18/2022 Office Visit Neurology Donovan Mayer MD [facility] NEUROLOGY DEPT. [place], [place] [address] (Wo rk) 04/24/2022 Appointment Hematology and Oncology 04/24/2022 Office Visit Hematology and Oncology Renea Navarro MD [facility] HEMATOLOGY/ONCOL OGY DEPT. [place], [place] [address] (Wo rk) documented as of this encounter Visit Diagnoses Diagnosis Radiculopathy of lumbar region Thoracic or lumbosacral neuritis or radi culitis, unspecified documented in this encounter Care Teams Tube Depatcher Relationship Specialty Start Date End Date Ingrid Espinosa APRN PCP - General Internal Medicine 07/28/[address] [place] [address] documented as of this encounter
--- OUTSIDE RECORDS SUMMARY | 2021-12-21 00:33 | XMS_ITS | Encounter Summary ---
:1950 Author Organization [facility] [place] [address] Care Team Providers Name Role Phone Ingrid Espinosa Uriel PALACIOS Primary Care Provider Encounter Details Date Type Department Care Team Description 09/28/2020 TH Visit [place]ology [place] [facility] [place] Lymphocytic colitis (TeleHealth) [facility] [place] [place] [address] Social History Tobacco Use Types Packs/Day [...] documented as of this encounter Progress Notes Meena Ardon RD - 09/28/2020 1:00 PM EDT Nutrition Reason for visit: diet and colitis (recovering) Wt Readings from Last 5 Encounters: 07/13/20 94.6 kg (208 lb 9.6 oz) 06/13/20 94.8 kg (209 lb) 02/29/20 99.3 kg (219 lb) 02/04/20 101.1 kg (222 lb 12.8 oz) 01/12/20 101.6 kg (224 lb) Ht Readings from Last 5 Encounters: 07/13/20 176.4 cm (5' 9.45) 06/13/20 175.3 cm (5' 9) 02/29/20 175.3 cm (5' 9) 02/04/20 175.3 cm (5' 9.02) 01/12/20 175.3 cm (5' 9) There is no height or weight on file to calculate BMI. Current weight: She has lost 70 lbs total, lost 50 lbs in the last 15 months; thinks maybe she lost 80 lbs or more Weight watchers, but lately has been going to the diabetes prevention class Meds include: Budesonide wean, now off colestipol, calicum and vitamin d supplements Diet Recall: on low fodmap diet--was more strict where she wasn't mixing foods, now is mixing foods. Make fish chowder. Made bolognese B-eggs and gluten free albanian muffin or cinnamon chex or cream of rice with blueberries or oatmeal or albanian muffin with peanut butter L-cheese or turkey or tuna or egg with vegetables (cucumber or salad, or canned green beans, canned beets), fruit (oranges, grapes, strawberries, canteloupe, pineapple, banana, blueberries, clementines, raspberry, rhubarb), yogurt (chobani) D-chicken is a staple, coated with hensley, bread crumbs parmesan (baked) with cabbage (limits rice andpotato) Veggies: bamboo shoots, broccoli, cabbage, carrots, hao green, spinach, beets, cucumber, eggplant, squashes, green beans, lettuce, parsnips, sweet potato, japanese chard Proteins: Chicken, fish, sometimes beef, scallops, tracy, salmon), sometimes eats garbanzo beans Fluids: decaf tea, decaf coffee black, and water (drinks adequate amount daily) Lactose intolerant? Now sure, using lactaid, every once in a while will eat matt and jony's and it does affect her BM's: Sometimes good bm and then oozing afterwards, sometimes constipation (this week and last week and last month), can go into 3 days, sometimes 4 days (sometimes takes 2 fibercon--does the trick) Exercise: She's more active than she was (snoeshoeing, walking, biking, canoeing) Evaluation: 70 year old female with recent history of colitis. She is almost at the end of her wean off budesonide. She also had allergy testing--she's allergic to mold--can't eat cheese, vinegar, ketchup, alcohol, canned tomatoes, mayonnaise She had colitis a couple of years ago (2018) in the Fall and it was very bad. She went on low fodmapdiet and medication. She never dared introduce any of the foods. Once in a while she will have something. She feels very comfortable with what she's eating. She fears that she may have flare up from eating things that might cause that. Her daughter thinks she should be reintroducing some of these foods, but she's not yet. She stopped gluten a long time ago before the colitis started. She limits gluten. She noticed that she developed colitis after being on statin therapy. Diet reviewed: Slowly increase fiber in the diet (with soluble fiber); continue adequate hydration Nutrition status: good Recommendations/Plan: 1. Slowly increase soluble fiber in diet as discussed today 2. Continue adequate hydration 3. Follow up with me as needed documented in this encounter Plan of Treatment Upcoming Encounters Date Type Specialty Care Team Description 03/06/2022 Office Visit Cardiology Lizeth Frazier MD [facility] [address] [place] [address] (Wo ynes) 03/18/2022 Office Visit Neurology Donovan Mayer MD [facility] ER NEUROLOGY DEPT. [place] [address] (Wo ynes) 04/24/2022 Appointment Hematology and Oncology 04/24/2022 Office Visit Hematology and Oncology Renae Navarro MD [facility] er HEMATOLOGY/ONCOL [place]UDE DEPT. [place], [place] [address] (Wo rk) documented as of this encounter Visit Diagnoses Diagnosis Lymphocytic colitis Other and unspecified noninfectious kathy roenteritis and colitis documented in this encounter Care Teams Industrial Gas Fitter Helper Relationship Specialty Start Date End Date Ingrid Espinosa APRN PCP - General Internal Medicine 07/28/[address] [place] [address] documented as of this encounter
--- OUTSIDE RECORDS SUMMARY | 2021-12-21 00:33 | XMS_ITS | Encounter Summary ---
:1950 Author Organization [facility] [place] [address] Care Team Providers Name Role Phone Ingrid Espinosa Uriel PALACIOS Primary Care Provider Reason for Visit Reason Onset Date Comments Reminder Appointment 05/26/2020 Encounter Details Date Type Department Care Team Description 05/26/2020 Telephone Gastroenterology at [facility] [place], Neo Appointment [facility] [place] [address] Social History Tobacco Use Types Packs/Day [...] on file documented as of this encounter Miscellaneous Notes Telephone Encounter - Antonina Nunez LNA - 05/26/2020 8:53 AM EST Called patient to review medications and allergies for their upcoming gastroenterology Type of Appointment: Telehealth appointment. Reach Patient during MA Check: Yes Notes for the provider: Notes for the nurse: documented in this encounter Plan of Treatment Upcoming Encounters Date Type Specialty Care Team Description 03/06/2022 Office Visit Cardiology Lizeth Frazier MD [facility] er [place], [place] [address] (Wo rk) 03/18/2022 Office Visit Neurology Donovan Mayer MD [facility] NEUROLOGY DEPT. [place], [place] [address] (Wo rk) 04/24/2022 Appointment Hematology and Oncology 04/24/2022 Office Visit Hematology and Oncology Renea Navarro MD [facility] HEMATOLOGY/ONCOL [place] DEPT. [place], [place] [address] (Wo rk) documented as of this encounter Visit Diagnoses Not on filedocumented in this encounter Care Teams Product Safety Test Engineer Relationship Specialty Start Date End Date Ingrid Espinosa APRN PCP - General Internal Medicine 07/28/[address] [place] [address] documented as of this encounter
--- OUTSIDE RECORDS SUMMARY | 2021-12-21 00:33 | XMS_ITS | Encounter Summary ---
:1950 Author Organization [facility] [place] [address] Care Team Providers Name Role Phone Ingrid Espinosa APRN Primary Care Provider Encounter Details Date Type Department Care Team Description 04/10/2021 [place] [facility], Incontinence of feces, unspe cified fecal incontinence type; (TeleHealth) [facility] Kade Orellana APRN Nausea without vomiting; [place] [address] [facility] Medical Diarrhea, unspecified type [phone] [place] [address] Social History Tobacco Use Types Packs/Day Years [...] as of this encounter Patient Instructions Patient InstructionsSiegSuri jenkins APRN - 04/10/2021 9:30 AM EST 1. Citrucel two capsules taking 1 8 oz of fluid daily. Increase by one capsule per day every week astolerated up to 12 capsules per day. If this makes symptoms worse, please stop. 2. Small bowel follow through. Please call radiology to schedule your imaging studies at the [facility]. Main radiology scheduling line 3. Anorectal manometry. Our strip feeder should call you within the next week or two to schedule. If you don't hear from someone please call us. 4. Follow up with me approximately one month after testing is complete documented in this encounter Progress Notes Suri Newton APRN - 04/10/2021 9:30 AM EST GASTROENTEROLOGY TELEMEDICINE PROGRAM - ESTABLISHED PATIENT VISIT Chief Complaint: Saundra Blanton is a 71 [address] of [address] Alcira rivas. provider found here for follow-up of fecal incontinence. Detailed history: *71 y.o. female With status post cholecystectomy, CLL, s/p c- section, and carcinoid in 2007. During our appointment on 04/08/2018, she endorsed persistent diarrhea for approximately 1month. Recommendations included stool studies, 5 HIAA, FODMAP diet, EGD, colonoscopy, and blood work. During our appointment on 05/26/2020, she endorsed doing well managing diarrhea with colestipol and FODMAP diet until summer 2019. She endorses developing urgent nonbloody fecal incontinence with 2 episodes per week. In between these episodes, she endorses constipation lasting up to 4 days. Recommendations included decrease colestipol, Citrucel, and considering anorectal manometry/smart pill or small bowel follow-through. Interval history: On December 06, experienced severe abdominal cramping, vomiting, and diarrhea with fecal incontinence. On February 07 she experienced abdominal pain, cramping, and diarrhea. Three other dates with diarrhea. Between episodes of diarrhea endorses mild constipation or regular stools. Denies fecal incontinence. Review of systems: 14-point review of systems reviewed and negative except as above. Medications: Outpatient Medications Prior to Visit Medication Sig Dispense Refill ??? melatonin 10 mg Capsule Take 10 [...] daily. ??? fluticasone propionate (FLONASE) 50 mcg/actuation [place], Suspension 1 spray by Each Nare route [...] SYSTEMS (HORIZON NASAL CPAP SYSTEM MISC) by [facility].(Non- Drug; Combo Route) route nightly. ??? levothyroxine [...] primary exam; Upper gastrointestinal endoscopy; Cholecystectomy (2006); [place] tooth extraction; Ca taract removal with implant (Bilateral); Colonoscopy, Biopsy (07969) (N/A, 06/30/2018); Upper Gi Endoscopy, Biopsy ([id number]) (N/A, 06/30/2018); and Colonoscopy (07/22/2016). Family History: [...] Otherwise normal 5. NM Octreoscan 06/16/18; negative Assessment/Plan: Ms. Blanton is a 71 y.o. patient with the following gastrointestinal issues: 1. IBS without gross evidence of celiac disease or IBD on EGD 2018 and up to date on CRC with episodes of abdominal pain and diarrhea with fecal incontinence no longer responding to loperamide or colestipol. At this juncture, it would be prudent to evaluate for underlying dysmotility versus dyssynergic defecation Recommendations: --Citrucel 2 capsules taken with 8 oz of fluid daily. Increase by 1 capsule per day every week as tolerated up to 12 capsules per day. If this makes symptoms worse, please stop. -Small bowel follow-through for oral cecal transit time -High resolution anorectal manometry for fecal incontinence -Follow-up with me approximately 1 month after testing is complete . Suri Newton APRN [facility] [place] [address] documented in this encounter Plan of Treatment Upcoming Encounters Date Type Specialty Care Team Description 03/06/2022 Office Visit Cardiology Lizeth Frazier MD [facility] [address] 0[address] (Wo ynes) 03/18/2022 Office Visit Neurology Donovan Mayer MD [facility] NEUROLOGY DEPT. [place] [address] (Amado quick) 04/24/2022 Appointment Hematology and Oncology 04/24/2022 Office Visit Hematology and Oncology Renea Navarro MD [facility] er HEMATOLOGY/ONCOL CLAUDE DEPT. [place], [place] [address] (Wo rk) documented as of this encounter Results XR Fluoro Small Bowel Only (08/01/2021 1:46 PM EDT) Anatomical Region Laterality Modality Abdomen N/A Digital Radiography Specimen (Source) Anatomical Location Collection Method / Collectio n Time Received Time / Laterality Volume Impressions 08/01/2021 2:29 PM EDT Delayed transit time through the small bowel to the distal ileum after 165 minutes. I have personally reviewed the image(s) and the resident's interpretation and agree with the findings, Ajay Fontenot MD at 08/01/2021 2:29 PM Thank you for letting us participate in the care of this patient. ??If you are a health care provider and have any questi ons regarding this report, please contact the number below. ??For patients who have questions please contact the health lawn caretaker that requested your imaging first. ? Electronically signed by: Ajay Fontenot MD, [facility] ([phone]), at 08/01/2021 2:29 PM Narrative 08/01/2021 2:29 PM EDT EXAMINATION: XR FLUORO SMALL BOWEL ONLY CLINICAL HISTORY: nausea. SBFT ordered s pecifically to evaluate small intestinal transit time to cecum TECHNIQUE: Single contrast small bowel follow throu gh was performed and overhead and fluoroscopic spot films were obtained. Fluoro time: 0 COMPARISON: CT urogram dated 12/31/2019 FINDINGS: Silk Blocker image: Air fills normal caliber small and large bowel within the midabdomen. Moderate stool throughout the colon. Surgical cli ps in the gallbladder. No acute fracture. Small bowel transit time: The small bowel is normal in course and caliber. Enteric contrast progresses only to the distal ileum after 165 minut es. No contrast is seen within the cecum after 165 minutes. Normal small bowel fold pattern. Procedure Note Ajay Fontenot MD - 08/01/2021Format ting of this note might be different from the original. EXAMINATION: XR FLUORO SMALL BOWEL ONLY CLINICAL HISTORY: nausea. SBFT ordered s pecifically to evaluate small intestinal transit time to cecum TECHNIQUE: Single contrast small bowel follow throu gh was performed and overhead and fluoroscopic spot films were obtained. Fluoro time: 0 COMPARISON: CT urogram dated 12/31/2019 FINDINGS: Sil[place] Blocker image: Air fills normal caliber small and large bowel within the midabdomen. Moderate stool throughout the colon. Surgical cli ps in the gallbladder. No acute fracture. Small bowel transit time: The small bowel is normal in course and caliber. Enteric contrast progresses only to the distal ileum after 165 minut es. No contrast is seen within the cecum after 165 minutes. Normal small bowel fold pattern. IMPRESSION Delayed transit time through the small b owel to the distal ileum after 165 minutes. I have personally reviewed the image(s) and the resident's interpretation and agree with the findings, Ajay Fontenot MD at 08/01/2021 2:29 PM Thank you for letting us participate in the care of this patient. If you are a health care provider and have any questi ons regarding this report, please contact the number below. For patients w ho have questions please contact the health lawn caretaker that requested your imaging first. Electronically signed by: Ajay Fontenot MD, [facility] ([phone]), at 08/01/2021 2:29 PM Suri Newton CORPORATE LEGAL ASSISTANT IMG FLUORO ORDERABLES documented in this encounter Visit Diagnoses Diagnosis Incontinence of feces, unspecified fecal incontinence type Nausea without vomiting Diarrhea, unspecified type Incontinence of feces, unspecified fecal incontinence type Nausea without vomiting Diarrhea, unspecified type documented in this encounter Care Teams Green Material Value Added Assessor Relationship Specialty Start Date End Date Ingrid Espinosa APRN PCP - General Internal Medicine 07/28/17 [address] [place] [address] documented as of this encounter
--- OUTSIDE RECORDS SUMMARY | 2021-12-21 00:33 | XMS_ITS | Encounter Summary ---
:1950 Author Organization [facility] [place] [address] Care Team Providers Name Role Phone FranciscaGuillerminaIngridcresencio Trevino APRN Primary Care Provider Encounter Details Date Type Department Care Team Description 03/05/2021 Hospital Encounter Ultrasound at [facility] Lissy Du, Gross hematuria; [facility] Angiomyolipoma of both kidneys [facility] [id number] UROLOGY [phone] [place] [address] Social History Tobacco Use Types Packs/Day Years [...] Sig Dispensed Refills Start Date End Date melatonin 10 mg Capsule Take 10 mg [...] 0 (FLONASE) 50 route daily as mcg/actuation [place], needed. Suspension Bifidobacterium infantis Take by mouth. [...] 0 tablet mouth daily. OXYGEN-AIR DELIVERY by [facility].(Non-Drug; 0 SYSTEMS (HORIZON NASAL Combo Route) route CPAP SYSTEM MISC) nightly. levothyroxine (SYNTHROID) Take 37.5 mcg by 0 25 mcg tablet mouth daily. documented as of this encounter Plan of Treatment Upcoming Encounters Date Type Specialty Care Team Description 03/06/2022 Office Visit Cardiology Lizeth Frazier MD [facility] [place], [place] [address] (Wo rk) 03/18/2022 Office Visit Neurology Donovan Mayer MD [facility] NEUROLOGY DEPT. [place], [place] [address] (Wo rk) 04/24/2022 Appointment Hematology and Oncology 04/24/2022 Office Visit Hematology and Oncology Renea Navarro MD [facility] HEMATOLOGY/ONCOL OGY DEPT. [place], [place] [address] (Wo rk) documented as of this encounter Procedures Procedure Name Priority Date/Time Associated Comments Diagnosis US RETROPERITONEAL Routine 03/05/2021 1:41 Gross hematur ia Results for this COMPLETE PM EDT Angiomyolipoma of procedure are in both kidneys the results section. documented in this encounter Results US Retroperitoneal Complete (03/05/2021 1:41 PM EDT) Anatomical Region Laterality Modality Abdomen Ultrasound Specimen (Source) Anatomical Collection Method Collection Time Re ceived Time Location / / Volume Laterality 03/05/2021 1:34 PM EDT Impressions 03/05/2021 2:31 PM EDT ?? What historically was referred to as dual separate right renal angiomyolipomas in the lateral an d mid lower right kidney, or shown at CT of December 2021 represent intra and extr arenal components of a single angiomyolipoma. Together, on the curren t study the largest component of this mass measures 5.1 x 3.3 x 5.2 cm, stabl e since 2019. New 5 mm right lower pole cortical dalila omyolipoma. Stable left upper and lower pole angiom yolipomas. New 7 mm left renal cortical upper pole angiomyolipoma. No collecting system dilation bilateral ly. Electronically signed by: Omar Heart, Radiology [place] ([phone]), at 2:24 PM Thank you for letting us participate in the care of this patient. If you are a health care [facility] er and have any questions regarding this report, please contact the number above. For patients who have ques tions, please contact the [facility] that requested your imaging first. ?Jolene Case, [facility] Chief Electronically Signed Final Report ?? 02:30 pm Narrative 03/05/2021 2:31 PM EDT Renal ? (Signed Final 03/05/2021 02:30 pm) PATIENT INFO: ID #: ? [id number] ?: ??[birth year] (70 yrs)(F) Name: ? SAUNDRA DHALIWAL ? Visit Date: 03/05/2021 01:34 pm PERFORMED BY: Performed By: ? Thomas San RDMS Attending: ?Jolene Case MD Referred By: ?LISSY DU Location: ? [place] SERVICE(S) PROVIDED: URETRO - Retroperitoneal Complete - IMG [id number] ? [id number] INDICATIONS: Hx of nephrolithiasis and bilateral AML 's ? change in AML and stone burden COMPARISON: 12/13/[address] 12/31/2019 RIGHT KIDNEY: Size (cm) ?L: ??10.4 Cortical Thickness: ?Normal Cortical Echogenicity: ?? Normal Hydronephrosis: ?No sonogr aphic evidence -------- Lesions: -------- # ?Date ?Location ?Description ?L ?AP ?TV (cm) 1 ?03/05/21 ?Lower pole ?An giomyolipo ?5.2 ?3.3 ? 5.0 ?ma # ?Date ?Location ?Description ?L ?AP ?TV (cm) 1 ?12/13/19 ?Lower pole ?An giomyolipo ?1.3 ?1.4 ? 1.5 ?ma 1 ?08/07/15 ?Medial/ ? A ngiomyolipo ?1.1 ?1.1 ? 1.2 ?Inferior ?ma 1 ?07/11/15 ?Mid/Lower ? An giomyolipo ?1.7 ?1.2 ? 2.4 ?Pole ?ma 1 ?03/09/13 ?MID/Lower ? An giomyolipo ?2.3 ?1.7 ? 2.0 ?Pole ?ma ?Lateral 1 ?03/02/12 ?Lower pole ?An giomyolipo ?1.2 ?1.6 ? 2.0 ?lateral ? ma 1 ?06/14/10 ?Lower pole ?An giomyolipo ?1.1 ?1.2 ? 1.1 ?ma 2 ?10/18/21 ?Lower pole ?An giomyolipo ?0.5 ?0.5 ? 0.4 ?ma 2 ?//20 ?Mid Lateral ?? Ang iomyolipo ?5.0 ?2.6 ? 3.7 ?ma 2 ?07/28/18 ?Lower pole ?An giomyolipo ?1.2 ?1.2 ? 1.0 ?ma 2 ?16 ?Mid / ? Angiomyolipo ?0.5 ?0.5 ? 0.3 ?Inferior ?ma 2 ?07/11/14 ?Mid pole ?A ngiomyolipo ?0.7 ?0.5 ? 5.0 ?ma 2 ?03/09/13 ?Lower pole ?An giomyolipo ?0.5 ?0.7 ? 0.6 ?ma 2 ?03/02/12 ?Lower pole ?An giomyolipo ?0.4 ?0.2 ? 0.5 ?ma 2 ?10/30/10 ?Lower pole ?An giomyolipo ?0.4 ?0.5 ? 0.3 ?ma 3 ?07/11/14 ?Mid pole ?A ngiomyolipo ?0.5 ?0.4 ? 0.5 ?ma LEFT KIDNEY: Size (cm) ?L: ??11.9 Cortical Thickness: ?Normal Cortical Echogenicity: ?? Normal Hydronephrosis: ?No sonogr aphic evidence -------- Lesions: -------- # ?Date ?Location ?Description ?L ?AP ?TV (cm) 1 ?03/05/21 ?Upper pole ?An giomyolipo ?1.6 ?1.4 ? 1.6 ?ma 1 ?12/13/19 ?Upper pole ?An giomyolipo ?1.7 ?1.6 ? 1.7 ?ma 1 ?07/28/17 ?Upper pole ?An giomyolipo ?1.6 ?1.0 ? 1.5 ?ma 1 ?08/07/15 ?Upper pole ?An giomyolipo ?1.4 ?1.7 ? 1.8 ?ma 1 ?07/11/15 ?Upper pole ?An giomyolipo ?1.8 ?1.6 ? 1.6 ?ma 1 ?03/09/ ?Upper pole ?An giomyolipo ?1.4 ?1.8 ? 1.4 ?ma # ?Date ?Location ?Description ?L ?AP ?TV (cm) 1 ?10/15/12 ?Upper pole ?An giomyolipo ?1.6 ?1.2 ? 1.4 ?ma 1 ?06/14/10 ?Upper pole ?An giomyolipo ?2.4 ?1.6 ? 1.4 ?ma 2 ?18/21 ?Lower pole ?An giomyolipo ?1.8 ?1.4 ? 1.5 ?ma 2 ?12/12/ ?Lower pole ?An giomyolipo ?2.6 ?1.5 ? 1.7 ?ma 2 ?18 ?Lower pole ?An giomyolipo ?2.5 ?1.3 ? 1.4 ?ma 2 ?08/06/16 ?Lower pole ?An giomyolipo ?1.8 ?1.6 ? 1.5 ?ma 2 ?07/11/15 ?Lower pole ?An giomyolipo ?1.7 ?1.5 ? 1.6 ?ma 2 ?03/09/13 ?Lower pole ?An giomyolipo ?1.9 ?1.5 ? 1.6 ?ma 2 ?15/12 ?Lower pole ?An giomyolipo ?2.6 ?1.4 ? 1.5 ?ma 2 ?10/30/09 ?Lower pole ?An giomyolipo ?1.7 ?1.3 ? 1.4 ?ma URINARY BLADDER: Comment: ?Partially distended, norm al contour Procedure Note Jolene Case MD - 03/05/2021 Renal (Signed Final 03/05/2021 02:30 pm ) PATIENT INFO: ID #: [id number] : [birth year] (70 y rs)(F) Name: SAUNDRA DHALIWAL Visit Date: 2020 01:34 pm PERFORMED BY: Performed By: Thomas San RDMS Attending: Jolene Case MD Referred By: LISSY DU Location: [place] SERVICE(S) PROVIDED: URETRO - Retroperitoneal Complete - IM [id number] INDICATIONS: Hx of nephrolithiasis and bilateral AML 's ? change in AML and stone burden COMPARISON: 12/13/[address] 12/31/2019 RIGHT KIDNEY: Size (cm) L: 10.4 Cortical Thickness: Normal Cortical Echogenicity: Normal Hydronephrosis: No sonographic evidence -------- Lesions: -------- # Date Location Description L AP TV (cm ) 1 03/05/21 Lower pole Angiomyolipo 5.2 3.3 5.0 ma # Date Location Description L AP TV (cm ) 1 12/13/19 Lower pole Angiomyolipo 1.3 1.4 1.5 ma 1 08/07/15 Medial/ Angiomyolipo 1.1 1.1 1.2 Inferior ma 1 07/11/14 Mid/Lower Angiomyolipo 1.7 1 .2 2.4 Pole ma 1 03/09/13 MID/Lower Angiomyolipo 2.3 1 .7 2.0 Pole ma Lateral 1 03/02/12 Lower pole Angiomyolipo 1.2 1.6 2.0 lateral ma 1 10/30/09 Lower pole Angiomyolipo 1.1 1.2 1.1 ma 2 03/05/21 Lower pole Angiomyolipo 0.5 0.5 0.4 ma 2 12/13/19 Mid Lateral Angiomyolipo 5.0 2.6 3.7 ma 2 07/28/17 Lower pole Angiomyolipo 1.2 1.2 1.0 ma 2 08/07/15 Mid / Angiomyolipo 0.5 0.5 0 .3 Inferior ma 2 07/11/14 Mid pole Angiomyolipo 0.7 0. 5 5.0 ma 2 03/09/13 Lower pole Angiomyolipo 0.5 0.7 0.6 ma 2 03/02/12 Lower pole Angiomyolipo 0.4 0.2 0.5 ma 2 10/30/09 Lower pole Angiomyolipo 0.4 0.5 0.3 ma 3 07/11/14 Mid pole Angiomyolipo 0.5 0. 4 0.5 ma LEFT KIDNEY: Size (cm) L: 11.9 Cortical Thickness: Normal Cortical Echogenicity: Normal Hydronephrosis: No sonographic evidence -------- Lesions: -------- # Date Location Description L AP TV (cm ) 1 03/05/21 Upper pole Angiomyolipo 1.6 1.4 1.6 ma 1 12/13/19 Upper pole Angiomyolipo 1.7 1.6 1.7 ma 1 07/28/17 Upper pole Angiomyolipo 1.6 1.0 1.5 ma 1 08/07/15 Upper pole Angiomyolipo 1.4 1.7 1.8 ma 1 07/11/14 Upper pole Angiomyolipo 1.8 1.6 1.6 ma 1 03/09/13 Upper pole Angiomyolipo 1.4 1.8 1.4 ma # Date Location Description L AP TV (cm ) 1 03/02/12 Upper pole Angiomyolipo 1.6 1.2 1.4 ma 1 10/30/09 Upper pole Angiomyolipo 2.4 1.6 1.4 ma 2 03/05/21 Lower pole Angiomyolipo 1.8 1.4 1.5 ma 2 12/13/19 Lower pole Angiomyolipo 2.6 1.5 1.7 ma 2 07/28/17 Lower pole Angiomyolipo 2.5 1.3 1.4 ma 2 08/07/15 Lower pole Angiomyolipo 1.8 1.6 1.5 ma 2 07/11/14 Lower pole Angiomyolipo 1.7 1.5 1.6 ma 2 03/09/13 Lower pole Angiomyolipo 1.9 1.5 1.6 ma 2 03/02/12 Lower pole Angiomyolipo 2.6 1.4 1.5 ma 2 10/30/09 Lower pole Angiomyolipo 1.7 1.3 1.4 ma URINARY BLADDER: Comment: Partially distended, normal co ntour IMPRESSION What historically was referred to as du al separate right renal angiomyolipomas in the lateral an d mid lower right kidney, or shown at CT of December 2021 represent intra and extr arenal components of a single angiomyolipoma. Together, on the curren t study the largest component of this mass measures 5.1 x 3.3 x 5.2 cm, stabl e since 2019. New 5 mm right lower pole cortical dalila omyolipoma. Stable left upper and lower pole angiom yolipomas. New 7 mm left renal cortical upper pole angiomyolipoma. No collecting system dilation bilateral ly. Electronically signed by: Omar Heart, Radiology [place] ([phone]), at 2:24 PM Thank you for letting us participate in the care of this patient. If you are a [facility] er and have any questions regarding this report, please contact the number above. For patients who have ques tions, please contact the [facility] professio nal that requested your imaging first. Jolene Case, Station Cleaning Porter Electronically Signed Final Report 03/05 02:30 pm Lissy Du MD [facility] GEN ORDERABLES documented in this encounter Visit Diagnoses Diagnosis Gross hematuria Angiomyolipoma of both kidneys documented in this encounter Care Teams Filter Press Supervisor Relationship Specialty Start Date End Date Ingrid Espinosa APRN PCP - General Internal Medicine 07/28/[address] [place] [address] documented as of this encounter
--- OUTSIDE RECORDS SUMMARY | 2021-12-21 00:33 | XMS_ITS | Encounter Summary ---
:1950 Author Organization [place] [address] Care Team Providers Name Role Phone Ingrid Espinosa APRN Primary Care Provider Encounter Details Date Type Department Care Team Description 03/05/2021 Office Visit Urology at [facility] Coleman Du, Renal angiomyolipoma; [facility] Nephrolithiasis [facility] [place] [id number] UROLOGY [phone] [place] [id number] Social History Tobacco Use Types Packs/Day Years [...] Sign Reading Time Taken Comments Blood Pressure 122/68 03/05/2021 2:01 PM EDT Pulse 88 03/05/2021 2:01 PM EDT Temperature - - Respiratory Rate - - Oxygen Saturation 96% 03/05/2021 2:01 PM EDT Inhaled Oxygen Concentration - - Weight 90.3 kg (199 lb) 03/05/2021 2:01 PM EDT Height - - Body Mass Index 28.98 02/22/2021 3:59 PM EDT documented in this encounter Progress Notes Maria D Gunter APRN - 03/05/2021 2:00 PM EDT Patient Name: Saundra Blanton MR: [id number] Date of Service: 03/05/2021 Primary Care Provider: Ingrid Espinosa MD [phone] ?? Reason for Visit: Saundra Blanton is a 70 year old woman who is here for follow up. She is followed for bilateral angiomyolipomas and a cystoscopy to complete a hematuria w/u ?? Outside scans reviewed 04/21 CT abdomen 2 left ~1.5 cm AML, 2 right <0.5 cm AML. No hounsfield measurements but clearly appear to be fat. 04/22 CT abdomen No change 08/03 CT a/p: No change in AML, however new bilateral non-obstructing kidney stones. ?? Some gross hematuria/blood with wiping 11/2019. negative hematuria workup 02/2020 with cystoscopy No gross hematuria. No smoking history. No chemical or dye exposure. A few wipes. No change in urinary symptoms like urgency and frequency. No UTIs. She has lost 70 lbs with trying: DM prevention. She is exercising and feels amazing. Walks with a pole given an ankle fracture in 10/2020. Will see Dr. Mayer for Radiculopathy. She has back pain-stable. Going to PT for this. No stone passage. ?? Change in PMhx/Pshx since last visit. ?? Patient Active Problem List Diagnosis Code ??? CIS - Tinea pedis ? Lumbar radiculopathy M54.16 ??? 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 Migraine G43.909 ??? Hypothyroid E03.9 ??? Sleep apnea G47.30 ??? Benign renal tumor D30.00 ??? Depression F32.9 ??? Hypertension I10 ??? Elevated cholesterol E78.00 ??? Obesity E66.9 ??? Solar lentigo L81.4 ??? 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 Right knee pain M25.561 ??? Right ankle pain M25.571 ??? 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 Candidal intertrigo B37.2 ??? SK (seborrheic keratosis) L82.1 ??? Seborrheic keratosis, inflamed L82.0 ??? Hypercoagulable state D68.59 ??? Gastric polyp K31.7 Examination: Appears well, NAD abd soft, nontender, no masses or cva tenderness. : atrophic labial with left sided excoriation-likely where she had the bleeding from. Labial fusion No urethral caruncle. No other abnoraalities ?? Labs: None ?? X-rays: 08/22 [facility] U/S AMLS visualised and no change in size as compared with 04/21 CT 10/23 [facility] U/S Slightly larger 1-2mm 10/24 [facility] U/S minimal change all <2cm 10/25 [facility] U/S minimal change all <2cm 10/2009 [facility] U/S minimal change all <2cm 02/27: US: right AML is now 2 cm, about 1 cm larger than 2 years ago. Left AML is stable-reviewed with Dr. Du Ultrasound - Retroperitoneal Complete - Summary 1) Interval increase in size of a right lower pole angiomyolipoma which now measures 2.3 cm. 2) Unchanged left angiomyolipomas. 3) Partially distended bladder appears normal. ?? 06/2014 US Impression Ultrasound 07/2017 Impression: Small bilateral angiomyolipomas, accounting ??for differences in imaging technique, I do not feel these ??are changed significantlyin size compared to the ??patient's 2016 study. We could only see ??oneangiomyolipoma on the RIGHT and 2 on the LEFT ??today due to limited imaging ofthe RIGHT kidney from ??bowel gas. The one on the RIGHT may be slightly ??largerthan the given measurements as it blends with ??the extrarenal fat, I believe itremains under 2.5 cm ??however ?? Ultrasound - Retroperitoneal Complete - Summary Bilateral stable small angiomyolipomas with one new 5mm right sided echogenic mass similar to others. 3 right sided AMLs, 2 left sided AMLs ?? 07/2015: renal US: imaging reviewed. ??Ultrasound -?? Retroperitoneal Complete - Summary ??1.?? Apparent interval decrease in size of the mid-lower pole right renal AML.?? Other bilateral renal AMLs (one on the right and two on the left) are largely stable in ??size as detailed above. ??2.?? 5 mm right renal AML seen previously (labelled as lesion #3) is not visualized today. ??3.?? Unremarkable bladder for degree of distention. 12/13/2019: renal US: Dr. Du reviewed. 1. On the RIGHT, what is previously been called 2 separate angiomyolipomas, I believe is a single angiomyolipoma with both intra and extrarenal components. This is confirmed on the patient's CT from 2018. Together these measure 5.0 x 3.6 x 3.1 cm, compared to 3.3 x 2.7 x 2.4 cm in 2018. Comparison with the patient's last ultrasound is limited due to technical differences 2. Slight interval increase in the 2 small LEFT renal angiomyolipomas, the largest is in the lower pole measures 2.6 cm 3. No hydronephrosis or hydroureter. 12/2019 CTU: IMPRESSION 1. Interval increase in size of the exophytic right renal angiomyolipoma, now measuring 4.1 cm in greatest dimension (previously measuring 3.3 cm). 2. Bilateral nonobstructing nephrolithiasis. No hydronephrosis or hydroureter. 3. Normal appearance of the collecting systems and urinary bladder. 4. Unexpected Finding: Interval increase in borderline retroperitoneal lymphadenopathy. This may be reactive, however, an indolent lymphoproliferative disorder is not excluded. 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 Will wait for final renal US report 10/2009 PVR by bladder scan = 0 ?? Labs 06/2014: U/A Negative 07/2015: rbc-UA sent 11/2019: 1 RBC, 1WBC 01/2020 NO RBC/No WBC?? Cystoscopy 03/2013: Normal 02/2020: Normal ?? Cytology 03/2013: Negative ?? Impression: Bilateral AML's, asymptomatic. Now 4.1 cm. Reviewed risk of bleeding. Controversy regarding 4cm cut point etc.Would not recommend intervention now. Bilateral non-obstructing renal stones on CT Blood with wiping-negative hematuria w/u in 2019 ? Plan: 1 year with renal u/s, call with stone pain sooner. Hydration with water. Maria D Bravo ApRN documented in this encounter Plan of Treatment Upcoming Encounters Date Type Specialty Care Team Description 03/06/2022 Office Visit Cardiology Lizeth Frazier MD [facility] [place], [place] [address] (Wo rk) 03/18/2022 Office Visit Neurology Donovan Mayer MD [facility] NEUROLOGY DEPT. [place], [place] [address] (Wo rk) 04/24/2022 Appointment Hematology and Oncology 04/24/2022 Office Visit Hematology and Oncology Renea Navarro MD [facility] HEMATOLOGY/ONCOL CLAUDE DEPT. [place], [place] [address] (Wo rk) Scheduled Orders Name Type Priority Associated Diagnoses Order S chedule US Retroperitoneal Complete Imaging Routine Angeline l angiomyolipoma Expected: Nephrolithiasis 03/05/2022 (Approximate), Expires: 2021 documented as of this encounter Visit Diagnoses Diagnosis Renal angiomyolipoma Benign neoplasm of kidney, except pelvis Nephrolithiasis Calculus of kidney documented in this encounter Care Teams Dust Collector Treater Relationship Specialty Start Date End Date Ingrid Espinosa APRN PCP - General Internal Medicine 07/28/17 [address] [place] [address] documented as of this encounter
--- OUTSIDE RECORDS SUMMARY | 2021-12-21 00:33 | XMS_ITS | Encounter Summary ---
:1950 Author Organization [facility] [place] [address] Care Team Providers Name Role Phone Guillermina Espinosacresencio Trevino APRN Primary Care Provider Reason for Visit Reason Onset Date Comments Bumped Appointment 02/16/2021 Encounter Details Date Type Department Care Team Description 02/16/[address] [facility] Donovan Mayer MD Bumped Appointment [facility] [place] [address] NEUROLOGY DEPT. [phone] [place], [place] [address] (Wo rk) Social History Tobacco Use Types Packs/Day Years [...] this encounter Miscellaneous Notes Telephone Encounter - Nancy Ugalde Terry - 02/16/2021 10:37 AM EDT Scheduling Instructions Provider: Yannick Mayer Visit Type (paste NEW Instructions or manually enter): FUV on 04/26 needs to be rescheduled due to provider being unavailable on this day. Appt Note: 6 MO FUV Radiculopathy of lumbar region Additional Info Needed:Please schedule for 04/19 if slots are still available. Can park call to Nancy if needed documented in this encounter Plan of Treatment Upcoming Encounters Date Type Specialty Care Team Description 03/06/2022 Office Visit Cardiology Lizeth Frazier MD [facility] er [place], [place] [address] (Wo rk) 03/18/2022 Office Visit Neurology Donovan Mayer MD [facility] NEUROLOGY DEPT. [place], [place] [address] (Wo rk) 04/24/2022 Appointment Hematology and Oncology 04/24/2022 Office Visit Hematology and Oncology Renea Navarro MD [facility] er HEMATOLOGY/ONCOL CLAUDE DEPT. [place], [place] [address] (Wo rk) documented as of this encounter Visit Diagnoses Not on filedocumented in this encounter Care Teams Momd Teacher Relationship Specialty Start Date End Date Ingrid Espinosa APRN PCP - General Internal Medicine 07/28/[address] [place] [address] documented as of this encounter
--- OUTSIDE RECORDS SUMMARY | 2021-12-21 00:33 | XMS_ITS | Encounter Summary ---
:1950 Author Organization [facility] [address] Care Team Providers Name Role Phone Ingrid Espinosa Uriel PALACIOS Primary Care Provider Encounter Details Date Type Department Care Team Description 11/28/2020 External Results Hematology and Oncology [place] [address] Social History Tobacco Use Types Packs/Day [...] 03/06/2022 Office Visit Cardiology Lizeth Frazier MD [facility] [address] [place] [address] (Wo rk) 03/18/2022 Office Visit Neurology Donovan Mayer MD [facility] NEUROLOGY DEPT. [place], [place] [address] (Wo rk) 04/24/2022 Appointment Hematology and Oncology 04/24/2022 Office Visit Hematology and Oncology Renea Navarro MD [facility] er HEMATOLOGY/ONCOL CLAUDE DEPT. [place], [place] [address] (Wo rk) documented as of this encounter Procedures Procedure Name Priority Date/Time Associated Diagnosis Comme nts CBC (WITH DIFF) Routine 11/02/2020 1:20 PM Result s for this EDT procedure are i n the results section. documented in this encounter Results (ABNORMAL) CBC (with Diff) (11/02/2020 1:20 PM EDT) [facility] gist Method Time Signature WBC 66.6 EXTERNAL LAB (ExtHH) Hemoglobin 14.5 EXTERNAL LAB Hematocrit 46.5 EXTERNAL LAB Platelets 213 EXTERNAL LAB Neutr Abs (ANC) 8.658 EXTERNAL LAB Lymphocyte Abs 36.630 EXTERNAL LAB (EXTERNAL/ ABN) Specimen (Source) Anatomical Collection Method Collection Time Re ceived Time Location / / Volume Laterality Blood 11/02/2020 1:20 PM EDT Historical Provider HEMATOLOGY ORDERABLES Performing Organization Address City/State/ZIP Code Phon e Number EXTERNAL FACILITY EXTERNAL LAB documented in this encounter Visit Diagnoses Not on filedocumented in this encounter Care Teams Technical Inspector Relationship Specialty Start Date End Date Ingrid Espinosa APRN PCP - General Internal Medicine 07/28/[address] [place] [address] documented as of this encounter
--- OUTSIDE RECORDS SUMMARY | 2021-12-21 00:33 | XMS_ITS | Encounter Summary ---
:1950 Author Organization [facility] [place] [address] Care Team Providers Name Role Phone Guillermina Espinosacresencio Trevino APRN Primary Care Provider Encounter Details Date Type Department Care Team Description 07/13/2020 Hospital Encounter Hematology and CLL ([facility] Oncology at [facility] lymphocytic leukemia) [place] [address] Social History Tobacco Use Types Packs/Day [...] buPROPion XL (Wellbutrin Take 150 mg by 0 XL) 150 mg Tablet mouth every Extended Release 24 hr morning. fish oil-omega-3 fatty Take 500 mg by 0 acids 500 mg Capsule mouth daily. gabapentin (Neurontin) Take 2 capsules by 180 capsule 3 02/16 300 mg Capsule mouth nightly. EPINEPHrine 0.3 mg/0.3 Inject 3 mLs into 0 2019 mL Auto-Injector the muscle as needed. calcium carbonate (Tums) Take 1 tablet by 0 200 mg calcium (500 mg) mouth daily as Tablet, Chewable needed for Heartburn. metoprolol succinate XL Take 25 mg by mouth 0 (Toprol-XL) 25 mg Tablet daily. Sustained Release 24 hr Xarelto 20 mg Tablet Take 20 mg by mouth 0 2019 daily. cetirizine (ZyrTEC) 10 Take 10 mg by mouth 0 mg Tablet daily. fluticasone propionate 1 spray by Each 0 12/04/19 19 (FLONASE) 50 Nare route daily as mcg/actuation [place], needed. Suspension Bifidobacterium infantis Take by mouth. 0 (ALIGN) 4 mg Capsule ezetimibe (ZETIA) 10 mg take 1 tablet by 0 2018 Tablet mouth once daily losartan (COZAAR) 100 mg Take 100 mg by 0 Tablet mouth daily. acetaminophen/diphenhydr Take 1 tablet by 0 amine (TYLENOL PM ORAL) mouth nightly as needed. cholecalciferol, Vitamin Take 1,000 Units by 0 D3, 1,000 unit Tablet mouth daily. Calcium 500 mg Tab Take 500 mg by 0 mouth daily. nystatin (MYCOSTATIN) Apply topically 3 0 powder times daily as needed. ketoconazole (NIZORAL) 2 Apply topically. 30 g 2 03/02 % creamIndications: Mixing with Intertrigo Desonide, under breasts, skin folds on abdomen 2 times daily for 2 weeks, then as needed for maintenance desonide (DESOWEN) 0.05 Apply topically. 30 g 2 2011 % creamIndications: Mix with Intertrigo Ketoconazole, under breasts, skin folds on abdomen 2 times daily for 2 weeks, then as needed for maintenance acetaminophen (TYLENOL) Take 1,000 mg by 0 500 mg tablet mouth 2 times daily. loperamide (IMMODIUM) 2 Take 2 mg by mouth 0 mg tablet 4 times daily as needed. multivitamin (THERAGRAN) Take 1 tablet by 0 tablet mouth daily. OXYGEN-AIR DELIVERY by [facility].(Non-Drug; 0 SYSTEMS (HORIZON NASAL Combo Route) route CPAP SYSTEM MISC) nightly. levothyroxine Take 37.5 mcg by 0 (SYNTHROID) 25 mcg mouth daily. tablet budesonide EC (Entocort 3 tabs (9mg) daily 180 capsule 0 12/13/2020 EC) 3 mg Capsule, x1 month, then 2 Delayed & Ext.Release tabs (6mg) daily x1 month, then 1 tab (3mg) daily x1 month calcium citrate Take 1 tablet by 0 (Calcitrate) 200 mg (950 mouth daily. mg) Tablet simvastatin (ZOCOR) 20 Take 20 mg by 0 12/13/2020 mg Tablet mouth. documented as of this encounter Plan of Treatment Upcoming Encounters Date Type Specialty Care Team Description 03/06/2022 Office Visit Cardiology Martha Frazier MD [facility] [place], [place] [address] (Wo rk) 03/18/2022 Office Visit Neurology Donovan Mayer MD [facility] NEUROLOGY DEPT. [place], [place] [address] (Wo rk) 04/24/2022 Appointment Hematology and Oncology 04/24/2022 Office Visit Hematology and Oncology Renea Navarro MD [facility] HEMATOLOGY/ONCOL OGY DEPT. [place], [place] [address] (Wo rk) documented as of this encounter Procedures Procedure Name Priority Date/Time Associated Comments Diagnosis SCAN, PERIPHERAL BLOOD STAT 07/13/2020 1:23 PM Results for this EST procedure are i n the results section. HEMOGRAM STAT 07/13/2020 1:23 PM CLL (chronic Results f or this EST lymphocytic procedure are i n leukemia) the results section. DIFFERENTIAL, STAT 07/13/2020 1:23 PM CLL (chronic Results for this AUTOMATED EST lymphocytic procedure are i n leukemia) the results section. HC CBC,PLT & AUTO DIFF STAT 07/13/2020 1:23 PM CLL (chronic EST lymphocytic leukemia) HC VENIPUNCTURE STAT 07/13/2020 1:23 PM CLL (chronic Result s for this EST lymphocytic procedure are i n leukemia) the results section. COMPREHENSIVE STAT 07/13/2020 1:23 PM CLL (chronic Results for this METABOLIC PANEL EST lymphocytic procedure ar e in (NON-FASTING) leukemia) the results section. documented in this encounter Results Scan, Peripheral Blood (07/13/2020 1:23 PM EST) Analysis Performed At Patho logist Time Signature Plat Estimate Normal [facility] RBC Morphology Normal [facility] Smudge Cells Present [facility] Specimen Anatomical Collection Method Collection Time Receive d Time (Source) Location / / Volume Laterality Blood specimen 07/13/2020 1:23 PM 021 1:33 (specimen) EST PM EST Resulting Agency Comment Spec In Lab Virgilio Navarro MD HEMATOLOGY ORDERABLES Performing Organization Address City/State/ZIP Code Phon e Number [place] [phone] (ABNORMAL) Differential, Automated (07/13/2020 1:23 PM EST) Patholo gist Method Time Signature Neutrophils % 4.5 % [facility] Neutr Abs (ANC) 3.47 1.70 - [facility] 6.[address] [facility] x10(3)/[facility] LABORATORY Lymphocytes % 93.4 % [facility] Lymphocytes Abs 73.8 (H) 0.9 - 3.2 [facility] x10(3)/[facility] LABORATORY Monocytes % 1.7 % [facility] Monocyte Abs 1.4 (H) 0.3 - 0.9 [facility] x10(3)/[facility] LABORATORY Eosinophils % 0.2 % [facility] Eosinophils Abs 0.2 0.0 - 0.4 [facility] x10(3)/[facility] LABORATORY Basophils % 0.1 % [facility] Basophils Abs 0.1 0.0 - 0.1 [facility] x10(3)/[facility] LABORATORY Immature Gran % 0.10 % [facility] Comment: Immature granulocytes(IG's)percentage an d absolute count will include metamyelocytes, myelocytes, and promyelo cytes. Blood smears from CBCs yielding IG's will be scanned manually for concor dance. If this scan disagrees with the automated IG or if promyelocytes are not ed, a manual differential will be performed. Betty Gran Abs 0.09 (H) 0.00 - 0.04 x10(3)/[facility] LABORATORY Specimen Anatomical Collection Method Collection Time Receive d Time (Source) Location / / Volume Laterality Blood specimen 07/13/2020 1:23 PM 021 1:33 (specimen) EST PM EST Resulting Agency Comment Spec In Lab Virgilio Navarro MD HEMATOLOGY ORDERABLES Performing Organization Address City/State/[place] [address] (ABNORMAL) Hemogram (07/13/2020 1:23 PM EST) [facility] gist Method Time Signature WBC 78.9 4.0 - 9.5 [facility] (Critical) x10(3)/[facility] LABORATORY RBC 4.88 4.00 - [place] 5.[address] [facility] x10(6)/[facility] LABORATORY Hemoglobin 14.3 11.7 - [facility] 15.5 gm/dL [facility] LABORATORY Hematocrit 45.9 (H) 35.7 - [facility] 45.8 % [facility] LABORATORY MCV 94.1 82.6 - [facility] 94.4 [facility] LABORATORY MCH 29.3 27.1 - [place] [address] [facility] LABORATORY MCHC 31.2 (L) 31.7 - [facility] 35.0 gm/dL [facility] LABORATORY Platelets 178 145 - 357 [facility] x10(3)/[facility] LABORATORY RDWSD 46.7 (H) 37.0 - [facility] 46.0 [facility] LABORATORY RDWCV 13.8 11.5 - [facility] 14.1 % [facility] LABORATORY MPV 10.5 7.6 - 12.9 [facility] LABORATORY nRBC % Auto 0.0 % [facility] nRBC Abs Auto 0.000 0.000 - [facility] 0.[address] [facility] x10(3)/[facility] LABORATORY Specimen Anatomical Collection Method Collection Time Receive d Time (Source) Location / / Volume Laterality Blood specimen 07/13/2020 1:23 PM 021 1:33 (specimen) EST PM EST Resulting Agency Comment Spec In Lab Virgilio Navarro MD HEMATOLOGY ORDERABLES Performing Organization Address City/State/[place] [address] (ABNORMAL) Comprehensive metabolic panel (non-fasting) (07/13/2020 1:23 PM EST) athologist Signature Glucose Lvl 158 65 - 199 [facility] mg/dL [facility] Comment: Diabetes: >=200 mg/dL plus symp toms BUN 21 (H) 8 - 18 mg/dL [facility] Creatinine 0.79 0.70 - 1.20 mg/dL [facility] Sodium 141 135 - 145 mmol/L [facility] Potassium 4.9 3.5 - 5.0 mmol/L [facility] Comment: Please note: ??Patients with WBC >100,00 0 may have falsely elevated Potassium levels. ??For accurate Potassium quantif ication in these patients send serum separator tube (gold top) for subsequent determinations. ??Contact the Clinical Chemistry Laboratory if there are any qu estions. Chloride 106 98 - 107 mmol/L [facility] CO2 23 22 - 31 mmol/L [facility] Anion Gap 12 5 - 15 mmol/L [facility] Calcium 10.2 8.5 - 10.5 mg/dL [facility] Total Protein 6.9 6.1 - 8.0 gm/dL [facility] Albumin 4.6 3.2 - 5.2 gm/dL [facility] AST 25 0 - 30 unit/L [facility] ALT 16 0 - 30 unit/L [facility] Alk Phos 61 35 - 105 unit/L [facility] Total Bilirubin 0.3 0.2 - 1.3 mg/dL [facility] Estimated GFR 75 >=60 mL/min/1.73 m?? [facility] Comment: This patient? s estimated glomerular filtration rate (eGFR) is between 75 mL/min/1.73 m2 (patients with less muscl e mass) and 87 mL/min/1.73 m2 (patients with more muscle mass) as determined by the CKD-EPI equation. Assessment of eGFR is not appropriate when creatinine concentrations are rapidly changing. For clinical decisions where creatinine clearance will affect therapy, a 24-hour urine creatinine clearance may b e advised. Assignment of CKD stage 1 ? 5 for patients with an eGFR near the transition point between stages may be based on cli nical assessment of muscle mass and symptoms in addition to eGFR. Specimen Anatomical Collection Method Collection Time Receive d Time (Source) Location / / Volume Laterality Blood specimen 07/13/2020 1:23 PM 021 1:33 (specimen) EST PM EST Resulting Agency Comment Spec In Lab Virgilio Navarro MD CHEMISTRY ORDERABLES Performing Organization Address City/State/ZIP [place] [address] (ABNORMAL) Lactate Dehydrogenase (07/13/2020 1:23 PM EST) P athologist Signature LDH 252 (H) 110 - 220 [facility] unit/L [facility]ORY Specimen Anatomical Collection Method Collection Time Receive d Time (Source) Location / / Volume Laterality Blood specimen 07/13/2020 1:23 PM 021 1:33 (specimen) EST PM EST Resulting Agency Comment Spec In Lab Virgilio Navarro MD CHEMISTRY ORDERABLES Performing Organization Address City/State/ZIP [place] [address] documented in this encounter Visit Diagnoses Diagnosis CLL (chronic lymphocytic leukemia) Chronic lymphoid leukemia, without menti on of having achieved remission documented in this encounter Care Teams Drywall Hanger Relationship Specialty Start Date End Date Ingrid Espinosa APRN PCP - General Internal Medicine 07/28/17 [address] [place] [address] documented as of this encounter
--- OUTSIDE RECORDS SUMMARY | 2021-12-21 00:33 | XMS_ITS | Encounter Summary ---
:1950 Author Organization [facility] [place] [address] Care Team Providers Name Role Phone Guillermina Espinosacresencio Trevino APRN Primary Care Provider Encounter Details Date Type Department Care Team Description 02/22/2021 Hospital Encounter Hematology and CLL (ch ronic lymphocytic leukemia); Oncology at [facility] [place] [address] Social History Tobacco Use Types Packs/Day Years [...] 0 (FLONASE) 50 route daily as mcg/actuation [place], needed. Suspension Bifidobacterium infantis Take by mouth. [...] 03/06/2022 Office Visit Cardiology Martha Frazier MD [facility] er [place], [place] [address] (Wo rk) 03/18/2022 Office Visit Neurology Donovan Mayer MD [facility] NEUROLOGY DEPT. [place], [place] [address] (Wo rk) 04/24/2022 Appointment Hematology and Oncology 04/24/2022 Office Visit Hematology and Oncology Renea Navarro MD [facility] HEMATOLOGY/ONCOL CLAUDE DEPT. [place], [place] [address] (Wo rk) documented as of this encounter Procedures Procedure Name Priority Date/Time Associated Comments Diagnosis SCAN, PERIPHERAL BLOOD Routine 02/22/2021 2:59 PM Results for this EDT procedure are i n the results section. HEMOGRAM Routine 02/22/2021 2:59 PM CLL (chronic Results f or this EDT lymphocytic procedure are i n leukemia) the results Thrombocytopenia section. DIFFERENTIAL, Routine 02/22/2021 2:59 PM CLL (chronic Results for this AUTOMATED EDT lymphocytic procedure are i n leukemia) the results Thrombocytopenia section. HC CBC,PLT & AUTO DIFF Routine 02/22/2021 2:59 PM CLL (chronic EDT lymphocytic leukemia) Thrombocytopenia HC LACTIC Routine 02/22/2021 2:59 PM CLL (chronic Results f or this DEHYDROGENASE EDT lymphocytic procedure are in leukemia) the results Thrombocytopenia section. COMPREHENSIVE Routine 02/22/2021 2:59 PM CLL (chronic Results for this METABOLIC PANEL EDT lymphocytic procedure ar e in (NON-FASTING) leukemia) the results Thrombocytopenia section. documented in this encounter Results Scan, Peripheral Blood (02/22/2021 2:59 PM EDT) Analysis Performed At Patho logist Time Signature Plat Estimate Normal [facility] RBC Morphology Normal [facility] Smudge Cells Present [facility] Specimen Anatomical Collection Method Collection Time Receive d Time (Source) Location / / Volume Laterality Blood 02/22/2021 2:59 PM 1 3:05 EDT PM EDT Resulting Agency Comment Spec In Lab Virgilio Navarro MD HEMATOLOGY ORDERABLES Performing Organization Address City/State/[place] [address] (ABNORMAL) Differential, Automated (02/22/2021 2:59 PM EDT) [facility] Method Time Signature Neutrophils % 4.8 % [facility] Neutr Abs (ANC) 3.51 1.70 - [facility] 6.10 [facility] x10(3)/[facility] LABORATORY Lymphocytes % 90.7 % [facility] Lymphocytes Abs 66.3 (H) 0.9 - 3.2 [facility] x10(3)/[facility] LABORATORY Monocytes % 3.5 % [facility] Monocyte Abs 2.5 (H) 0.3 - 0.9 [facility] x10(3)/[facility] LABORATORY Eosinophils % 0.4 % [facility] Eosinophils Abs 0.3 0.0 - 0.4 [facility] x10(3)/[facility] LABORATORY Basophils % 0.5 % [facility] Basophils Abs 0.4 (H) 0.0 - 0.1 [facility] x10(3)/[facility] LABORATORY Immature Gran % 0.10 % [facility] Comment: Immature granulocytes(IG's)percentage an d absolute count will include metamyelocytes, myelocytes, and promyelo cytes. Blood smears from CBCs yielding IG's will be scanned manually for concor dance. If this scan disagrees with the automated IG or if promyelocytes are not ed, a manual differential will be performed. Betty Gran Abs 0.09 (H) 0.00 - 0.04 x10(3)/[facility] LABORATORY Specimen Anatomical Collection Method Collection Time Receive d Time (Source) Location / / Volume Laterality Blood 02/22/2021 2:59 PM 3:05 EDT PM EDT Resulting Agency Comment Spec In Lab Virgilio Navarro MD HEMATOLOGY ORDERABLES Performing Organization Address City/State/ZIP Code Phon e Number [place] [phone] [address] LAB[address] (ABNORMAL) Hemogram (02/22/2021 2:59 PM EDT) [facility] gist Method Time Signature WBC 73.1 4.0 - 9.5 [facility] ([facility] x10(3)/[facility] LABORATORY RBC 4.82 4.00 - [place] 5.21 [facility] x10(6)/[facility] LABORATORY Hemoglobin 14.3 11.7 - [facility] 15.[facility] g/dL [facility] Hematocrit 44.7 35.7 - [facility] 45.8 % [facility] MCV 92.7 82.6 - [facility] 94.4 [facility] LABORATORY MCH 29.7 27.1 - [facility] 32.0 pg [facility] MCHC 32.0 31.7 - [facility] 35.0 g/dL [facility] Platelets 221 145 - 357 [facility] x10(3)/[facility] LABORATORY RDWSD 47.0 (H) 37.0 - [facility] 46.0 [facility] LABORATORY RDWCV 13.8 11.5 - [facility] 14.1 % [facility] MPV 11.3 7.6 - 12.9 [facility] LABORATORY nRBC % Auto 0.0 % [facility] nRBC Abs Auto 0.000 0.000 - [facility].000 [facility] x10(3)/[facility] LABORATORY Specimen Anatomical Collection Method Collection Time Receive d Time (Source) Location / / Volume Laterality Blood 02/22/2021 2:59 PM 3:05 EDT PM EDT Resulting Agency Comment Spec In Lab Virgilio Navarro MD HEMATOLOGY ORDERABLES Performing Organization Address City/State/[place] [address] Comprehensive metabolic panel (non-fasting) (02/22/2021 2:59 PM EDT) athologist Signature Glucose Lvl 101 65 - 199 [facility] mg/dL [facility] Comment: Diabetes: >=200 mg/dL plus symp toms BUN 14 8 - 18 mg/dL [facility] Creatinine 0.75 0.70 - 1.20 mg/dL [facility] Sodium 142 135 - 145 mmol/L [facility] Potassium 4.1 3.5 - 5.0 mmol/L [facility] Comment: Please note: ??Patients with WBC >100,00 0 may have falsely elevated Potassium levels. ??For accurate Potassium quantif ication in these patients send serum separator tube (gold top) for subsequent determinations. ??Contact the Clinical Chemistry Laboratory if there are any qu estions. Chloride 104 98 - 107 mmol/L [facility] CO2 29 22 - 31 mmol/L [facility] Anion Gap 9 5 - 15 mmol/L [facility] Calcium 10.3 8.5 - 10.5 mg/dL [facility] Total Protein 6.9 6.1 - 8.0 g/dL [facility] Albumin 4.7 3.2 - 5.2 g/dL [facility] AST 23 0 - 30 unit/L [facility] ALT 15 0 - 30 unit/L [facility] Alk Phos 103 35 - 105 unit/L [facility] Total Bilirubin 0.3 0.2 - 1.3 mg/dL [facility] Estimated GFR 80 >=60 mL/min/1.73 m?? [facility] Comment: This patient? s estimated glomerular filtration rate (eGFR) is between 80 mL/min/1.73 m2 (patients with less muscl e mass) and 93 mL/min/1.73 m2 (patients with more muscle mass) as determined by the CKD-EPI equation. Assessment of eGFR is not appropriate when creatinine concentrations are rapidly changing. For clinical decisions where creatinine clearance will affect therapy, a 24-hour urine creatinine clearance may b e advised. Assignment of CKD stage 1 - 5 for patien ts with an eGFR near the transition point between stages may be based on cli nical assessment of muscle mass and symptoms in addition to eGFR. Specimen Anatomical Collection Method Collection Time Receive d Time (Source) Location / / Volume Laterality Blood 02/22/2021 2:59 PM 1 3:05 EDT PM EDT Resulting Agency Comment Spec In Lab Virgilio Navarro MD CHEMISTRY ORDERABLES Performing Organization Address City/State/[place] [address] (ABNORMAL) Lactate Dehydrogenase (02/22/2021 2:59 PM EDT) P athologist Signature LDH 242 (H) 110 - 220 [facility] unit/L [facility] Specimen Anatomical Collection Method Collection Time Receive d Time (Source) Location / / Volume Laterality Blood 02/22/2021 2:59 PM 1 3:05 EDT PM EDT Resulting Agency Comment Spec In Lab Virgilio Navarro MD CHEMISTRY ORDERABLES Performing Organization Address City/[facility]/ZIP [facility] [place] [address] documented in this encounter Visit Diagnoses Diagnosis CLL (chronic lymphocytic leukemia) Chronic lymphoid leukemia, without menti on of having achieved remission Thrombocytopenia Thrombocytopenia, unspecified documented in this encounter Care Teams Book Publisher Relationship Specialty Start Date End Date Ingrid Espinosa APRN PCP - General Internal Medicine 07/28/17 [facility] [place] [address] documented as of this encounter
--- OUTSIDE RECORDS SUMMARY | 2021-12-21 00:33 | XMS_ITS | Encounter Summary ---
:1950 Author Organization [facility] [place] [address] Care Team Providers Name Role Phone Ingrid Espinosa SUZANNE Primary Care Provider Reason for Visit Reason Comments Follow-up Encounter Details Date Type Department Care Team Description 07/04/2021 Office Visit Hematology and Олег Navarro MD [facility] [address] HEMATOLOGY/[place] [address] CLL ([place] [facility] Lucy Kerns MD [facility] HEMATOLOGY/[place] [address] lymphocytic leukemia) [place] [id number] Social History Tobacco Use Types Packs/Day Years [...] Sign Reading Time Taken Comments Blood Pressure 122/76 07/04/2021 1:05 PM EST Pulse 81 07/04/2021 1:05 PM EST Temperature 37.2 ??C (99 ??F) 07/04/2021 1:05 PM EST Respiratory Rate 18 07/04/2021 1:05 PM EST Oxygen Saturation 98% 07/04/2021 1:05 PM EST Inhaled Oxygen Concentration - - Weight 94.5 kg (208 lb 6.4 oz) 07/04/2021 1:05 PM EST Height 177 cm (5' 9.69) 07/04/2021 1:05 PM EST Body Mass Index 30.17 07/04/2021 1:05 PM EST documented in this encounter Progress Notes Virgilio Navarro MD - 07/04/2021 1:00 PM EST Images from the original note were not [...] Plt count: 159. 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 Follows with Isha Lutz, [facility], at [facility] and with Suri Newton APRN [place] [facility] ?? EGD: 06/30/18: Notable for medium-sized hiatal hernia, multiple gastric polyps. Biopsied. Path: fundic gland polyps. ?? Colonoscopy : 06/30/18: Diverticulosis in the sigmoid colon and in the descending colon ; Internalhemorrhoids ?? NM octreoscan: 06/16/18: No evidence of disease. ?? [place]. Rodriguez [place] [facility] [place]19 who felt that she does not need routine surveillance, either for the carcinoid or for the fundic gland polyps. 3. HTN Hypothyroidism 5. H/o DVT Provoked LLE DVT post- after 1 month bedrest and , 1986. Treated for a number of years per pt. R popliteal and posterior tibial DVT 2005. Repeat U/S OSH 2006 normal. [facility] anticoagulation since 2005. Stopped in 2011 Seen at [facility] - Testing was negative for an underlying inherited or acquired disorder of coagulation ?? 6. 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 Du 7. Hyperlipidemia 8. Dysplastic nevus resected from left thigh in 02/2018. Follows with D[place]atology [place] [facility] 9. Colonoscopy 06/30/18 - [...] stomach, bilateral angiomyolipomas,being followed by [place]rology [place] [facility], presenting for f/up for CLL. Unfortunately, EDS and significant other, Karthikeyan suffered a stroke and he has been in the hospital at [facility] since February. She is coping with this well, seeking extra support from her therapist. No fevers. No drenching nigh sweats. No new swellings that she noticed -No infections since last seen Right ankle wound has healed well She is fully vaccinated for COVID-19 - Intermittent diarrhea - has GI w/up scheduled - No active cardiac/resp/GI issues ; Rest of the ROS : negative; REVIEW OF SYSTEMS Constitutional --Energy level: as above --Pain: chronic back pain and right LE pain --Fevers/chills/sweats: No --Unexpected weight loss or gain: No Eyes - No change in vision Ears, nose, throat - No change hearing, no oral or throat pain or thrush; as above Cardiovascular --SOB: No --HARP: No --chest pain: No Respiratory --Cough: No --SOB, HARP: No Gastrointestinal --Appetite: good --Nausea/vomiting/diarrhea/constipation: chronic diarrhea as above - Abd pain: No Genitourinary --Dysuria or hematuria: No Musculoskeletal --Muscle pain or weakness: No --Joint pain or swelling: No Immune System --Recent infections: No Hematology/Lymph --Bruising/bleeding/melena: No --Enlarged nodes or other masses: as above Skin --Rashes or petechiae: No Neuro - as above Other ROS: All negative MEDICATIONS ??? melatonin 10 mg Capsule ??? buPROPion XL (Wellbutrin XL) 150 mg Tablet Extended Release 24 hr ??? fish oil-omega-3 fatty acids 500 mg Capsule ??? gabapentin (Neurontin) 300 mg Capsule ??? EPINEPHrine 0.3 mg/0.3 mL Auto-Injector ??? calcium carbonate (Tums) 200 mg calcium (500 mg) Tablet, Chewable ??? metoprolol succinate XL (Toprol-XL) 25 mg Tablet Sustained Release 24 hr ??? Xarelto 20 mg Tablet ??? cetirizine (ZyrTEC) 10 mg Tablet ??? fluticasone propionate (FLONASE) 50 mcg/actuation [place], Suspension ??? Bifidobacterium infantis (ALIGN) 4 mg [...] 25 mcg tablet ??? UNABLE TO FIND ALLERGIES/ADR Allergies Allergen Reactions ??? Latex Rash and Other (See Comments) Red welts ??? Sulfa (Sulfonamide Antibiotics) Rash ??? Codeine Other (See Comments) Bad dreams ??? Adhesive Tape ??? Adhesive Tape-Silicones Rash ??? Gluten ??? Hydrocodone-Acetaminophen Other (See Comments) Mental Status Changes ??? Lactose fodmap diet ??? Penicillins PERSONAL and SOCIAL HISTORY Social History Socioeconomic History ??? Marital status: Domestic Partner Spouse name: Not on file ??? Number of children: 1 ??? Years of education: Not on file ??? Highest education level: Not on file Occupational History ??? 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 [facility] Contact Permission:?? OK to leave message [...] syn; PHYSICAL EXAM VITAL SIGNS: Blood pressure 122/76, pulse 81, temperature 37.2 ??C (99 ??F), temperature source Temporal, resp. rate 18, height 177 cm (5' 9.69), weight 94.5 kg (208 lb 6.4 oz), SpO2 98 %. ECOG PS: 1 GENERAL: Saundra Blanton [...] wound healed well SKIN: No rashes LYMPH: No palpable cervical/axillary/inguinal lymphadenopathy. NEUROLOGICAL: Alert and oriented to person, place and time; No focal neurological deficits; PSYCHIATRIC: normal affect and mood LABORATORY Recent Results (from the past 72 hour(s)) IgG Result Value Ref Range IgG 596 (L) 700 - 1,600 mg/dL Lactate Dehydrogenase Result Value Ref Range LDH 261 (H) 110 - 220 unit/L Comprehensive metabolic panel (non-fasting) Result Value Ref Range Glucose Lvl 89 65 - 199 mg/dL BUN 16 8 - 18 mg/dL Creatinine 0.81 0.70 - 1.20 mg/dL Sodium 141 135 - 145 mmol/L Potassium 4.4 3.5 - 5.0 mmol/L Chloride 102 98 - 107 mmol/L CO2 27 22 - 31 mmol/L Anion Gap 12 5 - 15 mmol/L Calcium 10.2 8.5 - 10.5 mg/dL Total Protein 6.7 6.1 - 8.0 g/dL Albumin 4.7 3.2 - 5.2 g/dL AST 23 0 - 30 unit/L ALT 13 0 - 30 unit/L Alk Phos 79 35 - 105 unit/L Total Bilirubin 0.4 0.2 - 1.3 mg/dL Estimated GFR 73 >=60 mL/min/1.73 m?? Hemogram Result Value Ref Range WBC 89.1 (CRIT) 4.0 - 9.5 x10(3)/mcL RBC 4.95 4.00 - 5.21 x10(6)/mcL Hemoglobin 15.0 11.7 - 15.5 g/dL Hematocrit 46.4 (H) 35.7 - 45.8 % MCV 93.7 82.6 - 94.4 fL MCH 30.3 27.1 - 32.0 pg MCHC 32.3 31.7 - 35.0 g/dL Platelets 257 145 - 357 x10(3)/mcL RDWSD 47.2 (H) 37.0 - 46.0 fL RDWCV 13.7 11.5 - 14.1 % MPV 10.3 7.6 - 12.9 fL nRBC % Auto 0.0 % nRBC Abs Auto 0.000 0.000 - 0.000 x10(3)/mcL Differential, Automated Result Value Ref Range Neutrophils % 6.3 % Neutr Abs (ANC) 5.52 1.70 - 6.10 x10(3)/mcL Lymphocytes % 90.3 % Lymphocytes Abs 80.5 (H) 0.9 - 3.2 x10(3)/mcL Monocytes % 2.7 % Monocyte Abs 2.4 (H) 0.3 - 0.9 x10(3)/mcL Eosinophils % 0.4 % Eosinophils Abs 0.4 0.0 - 0.4 x10(3)/mcL Basophils % 0.1 % Basophils Abs 0.1 0.0 - 0.1 x10(3)/mcL Immature Gran % 0.20 % Betty Gran Abs 0.19 (H) 0.00 - 0.04 x10(3)/mcL Scan, Peripheral Blood Result Value Ref Range Plat Estimate Normal RBC Morphology Normal Smudge Cells Present ASSESSMENT & PLANS: # Early stage CLL: Clinically, Ms. Blanton remains asymptomatic. No palpable lymphadenopathy or HSM on exam (had CT a/p in 07/2017 showing mild splenomegaly and retroperitoneal and inguinal lymphadenopathy). I reviewed the labs with her from today: H&H and platelets are normal; absolute lymphocyte count(ALC) is slowly increasing, at 80.5K on today's labs. Lymphocyte doubling time is more than a 24 months. LDH remain slightly high at 261 (has been elevated for). Reviewed the indications to initiate therapy for CLL. Currently she does not have any enhance, will continue with the active surveillance approach. RTC for f/up with CBC,CMP,LDH in 4-5 months. # Hypogammaglobulinemia: IgG level today is 596.. no history of frequent infections. So, no indication to initiate IVIG at this time # b/ Angiomyolipomas : being followed by urology; I reviewed my impression and recommendations with Saundra Blanton and answered all the questions to her satisfaction. she understands the plan, and knows that she can contact us at any time should any new symptoms, concerns or questions arise. Virgilio Navarro MD [facility] CC: Ingrid Espinosa APRN documented in this encounter Plan of Treatment Upcoming Encounters Date Type Specialty Care Team Description 03/06/2022 Office Visit Cardiology Lizeth Frazier MD [facility] [address] [place] [address] ([place]) 03/18/2022 Office Visit Neurology Donovan Mayer MD [facility] NEUROLOGY DEPT. [place], [place] [address] ([place]) 04/24/2022 Appointment Hematology and Oncology 04/24/2022 Office Visit Hematology and Oncology Renea Navarro MD [facility] [place] [place] [address] ([place]) documented as of this encounter Visit Diagnoses Diagnosis CLL (chronic lymphocytic leukemia) Chronic lymphoid leukemia, without menti on of having achieved remission documented in this encounter Care Teams Channel Opener Outsoles Relationship Specialty Start Date End Date Ingrid Espinosa APRN PCP - General Internal Medicine 07/28/[address] [place] [address] documented as of this encounter
--- OUTSIDE RECORDS SUMMARY | 2021-12-21 00:33 | XMS_ITS | Encounter Summary ---
:1950 Author Organization [facility] [place] [address] Care Team Providers Name Role Phone Guillermina Espinosacresencio Trevino APRN Primary Care Provider Encounter Details Date Type Department Care Team Description 07/04/2021 Hospital Encounter Hematology and CLL (ch ronic lymphocytic leukemia); Oncology at [facility] [place] [address] Social History Tobacco Use Types Packs/Day Years [...] Sig Dispensed Refills Start Date End Date UNABLE TO FIND Med Name: Medihoney 0 [...] 0 (FLONASE) 50 route daily as mcg/actuation [place], needed. Suspension Bifidobacterium infantis Take by mouth. [...] 0 tablet mouth daily. OXYGEN[place] [facility]Non-Drug; 0 SYSTEMS (HORIZON NASAL Combo Route) route CPAP SYSTEM MISC) nightly. levothyroxine (SYNTHROID) Take 37.5 mcg by 0 25 mcg tablet mouth daily. documented as of this encounter Plan of Treatment Upcoming Encounters Date Type Specialty Care Team Description 03/06/2022 Office Visit Cardiology Martha Frazier MD [facility] [place] [address] ([place]) 03/18/2022 Office Visit Neurology Donovan Mayer MD [facility] NEUROLOGY DEPT. [place], [place] [address] ([place]o [place]k) 04/24/2022 Appointment Hematology and Oncology 04/24/2022 Office Visit Hematology and Oncology Renea Navarro MD [facility] HEMATOLOGY/ONCOL CLA[place]DE DEPT. [place], [place] [address] ([place]o rk) documented as of this encounter Procedures Procedure Name Priority Date/Time Associated Comments Diagnosis SCAN, PERIPHERAL BLOOD Routine 07/04/2021 10:56 R esults for this AM EST procedure are i n the results section. HEMOGRAM Routine 07/04/2021 10:56 CLL (chronic Results for this AM EST lymphocytic procedure are i n leukemia) the results Thrombocytopenia section. DIFFERENTIAL, Routine 07/04/2021 10:56 CLL (chronic Results fo r this AUTOMATED AM EST lymphocytic procedure are i n leukemia) the results Thrombocytopenia section. HC CBC,PLT & AUTO DIFF Routine 07/04/2021 10:56 CLL (chronic AM EST lymphocytic leukemia) Thrombocytopenia HC LACTIC Routine 07/04/2021 10:56 CLL (chronic Results for this DEHYDROGENASE AM EST lymphocytic procedure are in leukemia) the results Thrombocytopenia section. HC VENIPUNCTURE Routine 07/04/2021 10:56 CLL (chronic Results for this AM EST lymphocytic procedure are i n leukemia) the results section. COMPREHENSIVE Routine 07/04/2021 10:56 CLL (chronic Results fo r this METABOLIC PANEL AM EST lymphocytic procedure ar e in (NON-FASTING) leukemia) the results Thrombocytopenia section. documented in this encounter Results Scan, Peripheral Blood (07/04/2021 10:56 AM EST) Analysis Performed At Patho logist Time Signature Plat Estimate Normal [facility] RBC Morphology Normal [facility] Smudge Cells Present [facility] Specimen Anatomical Collection Method Collection Time Receive d Time (Source) Location / / Volume Laterality Blood 07/04/2021 10:56 07/04/2021 AM EST 11:14 AM EST Resulting Agency Comment Spec In Lab Virgilio Navarro MD HEMATOLOGY ORDERABLES Performing Organization Address City/State/[place] [address] (ABNORMAL) Differential, Automated (07/04/2021 10:56 AM EST) [facility] gist Method Time Signature Neutrophils % 6.3 % [facility] Neutr Abs (ANC) 5.52 1.70 - [facility] 6.10 [facility] x10(3)/[facility] LABORATORY Lymphocytes % 90.3 % [facility] Lymphocytes Abs 80.5 (H) 0.9 - 3.2 [facility] x10(3)/[facility] LABORATORY Monocytes % 2.7 % [facility] Monocyte Abs 2.4 (H) 0.3 - 0.9 [facility] x10(3)/[facility] LABORATORY Eosinophils % 0.4 % [facility] Eosinophils Abs 0.4 0.0 - 0.4 [facility] x10(3)[facility] LABORATORY Basophils % 0.1 % [facility] Basophils Abs 0.1 0.0 - 0.1 [facility] x10(3)/[facility] LABORATORY Immature Gran % 0.20 % [facility] Comment: Immature granulocytes(IG's)percentage an d absolute count will include metamyelocytes, myelocytes, and promyelo cytes. Blood smears from CBCs yielding IG's will be scanned manually for concor dance. If this scan disagrees with the automated IG or if promyelocytes are not ed, a manual differential will be performed. Betty Gran Abs 0.19 (H) 0.00 - 0.04 x10(3)/[facility] LABORATORY Specimen Anatomical Collection Method Collection Time Receive d Time (Source) Location / / Volume Laterality Blood 07/04/2021 10:56 07/04/2021 AM EST 11:14 AM EST Resulting Agency Comment Spec In Lab Virgilio Navarro MD HEMATOLOGY ORDERABLES Performing Organization Address City/State/[place] [address] (ABNORMAL) Hemogram (07/04/2021 10:56 AM EST) [facility] gist Method Time Signature WBC 89.1 4.0 - 9.5 [place] (Critical) x10(3)/[facility] LABORATORY RBC 4.95 4.00 - [place] 5.21 [facility] x10(6)/[facility] LABORATORY Hemoglobin 15.0 11.7 - [facility] 15.5 g/dL [facility] Hematocrit 46.4 (H) 35.7 - [facility] [place] 45.8 % [facility] MCV 93.7 82.6 - [facility] 94.4 [facility] LABORATORY MCH 30.3 27.1 - [place] 32.0 pg [facility] MCHC 32.3 31.7 - [place] 35.0 g/dL [facility] Platelets 257 145 - 357 [facility] x10(3)/[facility] LABORATORY RDWSD 47.2 (H) 37.0 - [facility] [place] 46.0 [facility] LABORATORY RDWCV 13.7 11.5 - [facility] [place] 14.1 % [facility] MPV 10.3 7.6 - 12.9 [facility] nRBC % Auto 0.0 % [facility] nRBC Abs Auto 0.000 0.000 - [facility] [place] 0.000 [facility] x10(3)/[facility] LABORATORY Specimen Anatomical Collection Method Collection Time Receive d Time (Source) Location / / Volume Laterality Blood 07/04/2021 10:56 07/04/2021 AM EST 11:14 AM EST Resulting Agency Comment Spec In Lab Virgilio Navarro MD HEMATOLOGY ORDERABLES Performing Organization Address City/State/ZIP Code Phon e Number [facility] [place] [address] Comprehensive metabolic panel (non-fasting) (07/04/2021 10:56 AM EST) P athologist Signature Glucose Lvl 89 65 - 199 [facility] mg/dL [facility] Comment: Diabetes: >=200 mg/dL plus symp toms BUN 16 8 - 18 mg/dL [facility] Creatinine 0.81 0.70 - 1.20 mg/dL [facility] Sodium 141 135 - 145 mmol/L [facility] Potassium 4.4 3.5 - 5.0 mmol/L [facility] Comment: Please note: ??Patients with WBC >100,00 0 may have falsely elevated Potassium levels. ??For accurate Potassium quantif ication in these patients send serum separator tube (gold top) for subsequent determinations. ??Contact the Clinical Chemistry Laboratory if there are any qu estions. Chloride 102 98 - 107 mmol/L [facility] CO2 27 22 - 31 mmol/L [facility] Anion Gap 12 5 - 15 mmol/L [facility] Calcium 10.2 8.5 - 10.5 mg/dL [facility] Total Protein 6.7 6.1 - 8.0 g/dL [facility] Albumin 4.7 3.2 - 5.2 g/dL [facility] AST 23 0 - 30 unit/L [facility] ALT 13 0 - 30 unit/L [facility] Alk Phos 79 35 - 105 unit/L [facility] Total Bilirubin 0.4 0.2 - 1.3 mg/dL [facility] Estimated GFR 73 >=60 mL/min/1.73 m?? [facility] Comment: This patient? s estimated glomerular filtration rate (eGFR) is between 73 mL/min/1.73 m2 (patients with less muscl e mass) and 84 mL/min/1.73 m2 (patients with more muscle mass) [...] (Source) Location / / Volume Laterality Blood 07/04/2021 10:56 07/04/2021 AM EST 11:14 AM EST Resulting Agency Comment Spec In Lab Virgilio Navarro MD CHEMISTRY ORDERABLES Performing Organization Address City/State/ZIP Code Phon e Number [address] (ABNORMAL) Lactate Dehydrogenase (07/04/2021 10:56 AM EST) P athologist Signature LDH 261 (H) 110 - 220 [facility] Specimen Anatomical Collection Method Collection Time Receive d Time (Source) Location / / Volume Laterality Blood 07/04/2021 10:56 07/04/2021 AM EST 11:14 AM EST Resulting Agency Comment Spec In Lab Virgilio Navarro MD CHEMISTRY ORDERABLES Performing Organization Address City/[facility]/ZIP [place] [address] (ABNORMAL) IgG (07/04/2021 10:56 AM EST) P athologist Signature IgG 596 (L) 700 - 1,600 [facility] mg/dL [facility] Comment: Pediatric Reference Intervals obtained f rom the Caliper Reference Interval project. http://www.sickkids.ca/caliperp roject/index.html Specimen Anatomical Collection Method Collection Time Receive d Time (Source) Location / / Volume Laterality Blood 07/04/2021 10:56 07/04/2021 AM EST 11:14 AM EST Resulting Agency Comment Spec In Lab Virgilio Navarro MD IMMUNOLOGY ORDERABLES Performing Organization Address City/State/[place] [address] documented in this encounter Visit Diagnoses Diagnosis CLL (chronic lymphocytic leukemia) Chronic lymphoid leukemia, without menti on of having achieved remission Thrombocytopenia Thrombocytopenia, unspecified documented in this encounter Care Teams Link Fabric Machine Operator Relationship Specialty Start Date End Date Ingrid Espinosa APRN PCP - General Internal Medicine 07/28/17 [address] [place] [address] documented as of this encounter
--- OUTSIDE RECORDS SUMMARY | 2021-12-21 00:33 | XMS_ITS | Encounter Summary ---
:1950 Author Organization [facility] [place] [address] Care Team Providers Name Role Phone Ingrid Espinosa Uriel PALACIOS Primary Care Provider Reason for Visit Reason Onset Date Comments Reminder Appointment 04/10/2021 Encounter Details Date Type Department Care Team Description 04/10/2021 Telephone Gastroenterology at [facility] Mayra, Neo Appointment [facility] [place] [address] Social History Tobacco Use Types Packs/Day [...] Telephone Encounter - Antonina Nunez LNA - 04/10/2021 8:14 AM EST Called patient to review medications and allergies for their upcoming gastroenterology Type of Appointment: Telehealth appointment. Reach Patient during MA Check: No, Left Message Notes for the provider: Notes for the nurse: documented in this encounter Plan of Treatment Upcoming Encounters Date Type Specialty Care Team Description 03/06/2022 Office Visit Cardiology Lizeth Frazier MD [facility] er [place], [place] [address] (Wo rk) 03/18/2022 Office Visit Neurology Donovan Mayer MD [facility] ER NEUROLOGY DEPT. [place], [place] [address] (Wo rk) 04/24/2022 Appointment Hematology and Oncology 04/24/2022 Office Visit Hematology and Oncology Renea Navarro MD [facility] er HEMATOLOGY/ONCOL [place] DEPT. [place], [place] [address] (Wo rk) documented as of this encounter Visit Diagnoses Not on filedocumented in this encounter Care Teams Watch And Clock Repairer Relationship Specialty Start Date End Date Ingrid Espinosa APRN PCP - General Internal Medicine 07/28/17 [address] [place] [address] documented as of this encounter
--- OUTSIDE RECORDS SUMMARY | 2021-12-21 00:33 | XMS_ITS | Encounter Summary ---
:1950 Author Organization [facility] [place] [address] Care Team Providers Name Role Phone FranciscaGuillerminaIngridcresencio Trevino APRN Primary Care Provider Reason for Visit Diagnostic Test (Routine) - Closed Specialty Diagnoses / Procedures Referred By Contact Refer red To Contact Gastroenterology Diagnoses Fecal incontinence ARM for fecal incontinence Suri Newton, [facility] Gastro 4t Procedures HIGH RESOLUTION ANAL MANOMETRY ARM for fecal incontinence AIX SYSTEM ADMINISTRATOR [facility] [place] [address] [place] [address] Referral ID Status Reason Start Date Expiration Date Visits V isits Requested Authorized [id number] Closed Test Only 05/23/2021 05/23/2022 1 1 Encounter Details Date Type Department Care Team Description 09/04/2021 Procedure visit Gastroenterology at [facility] Incontinence of feces, [facility] [place] [address] incontinence type [phone] Social History Tobacco Use Types Packs/Day Years [...] documented as of this encounter Progress Notes Peter Nguyen LPN - 09/04/2021 1:00 PM EDT A description of the anal manometry procedure was provided to the patient. All questions were answered and the patient verbalized understanding. After performing a digital rectal exam, the HRAM probe was placed in the rectum without difficulty and the procedure was performed. After removal of the probe, an anorectal balloon expulsion catheter was placed in the rectum for continuation of the study and then removed. The patient tolerated the procedure well. Boris Finn MD - 09/04/2021 1:00 PM EDT Re: Saundra Blanton Reg No:[id number] : 1950 Date of Service: 09/04/21 ANORECTAL MANOMETRY w/BALLOON EXPULSION Referring provider:Suri Newton Dear: Dr. Newton We had the pleasure of performing a high resolution anorectal manometry on your patient in the GI Motility Laboratory at [facility]. CLINICAL HISTORY AND INDICATION As you know, she is a 71 y.o. female with complaints of fecal incontinence RESULTS Resting sphincter length (?25mmHg high pressure zone): 3.5 cm Resting sphincter pressure (NL Value: Males 70-100, Females 70-90) : 47 mmHg Max squeeze pressure (NL Value: Males 240-300, Females 160-200) : 98 mmHg Squeeze duration: poor (sustaining at least 50% of the difference between maximum squeeze and resting pressures for fewer than 5 seconds). Rectoanal inhibitory reflex: present at 60 ccs balloon distention Response to coughing: normal (cough elicits a pressure greater than or equal to double the resting pressure). Response to simulated defecation on push #1: normal Type of Dyssynergia: none Response to simulated defecation on push #2: normal Type of Dyssynergia: none Response to simulated defecation on push #3: abnormal Type of Dyssynergia: Type 3: increase in intrarectal pressure and absent or incomplete sphincter relaxation Response to simulated defecation with 30 cc of air into the balloon: normal Type of Dyssynergia: none Summary Type of Dyssynergia by Manometry: none Percent of Sphincter Relaxation on Best Attempt: 33% Rectal Sensation: Threshold (NL Value: 30-70): 50mL Urgency (NL Value: 80-130): 100mL Maximum tolerated (NL Value: 130-200): 150mL Balloon expulsion test: 20 seconds in seated position IMPRESSION If patient has fecal incontinence, consider a referral to physical therapy for pelvic floor neuromuscular reeducation and rectal sensory balloon retraining (biofeedback) if symptoms correlate with these manometric findings. Signed: Boris Finn MD, [place] Section of Gastroenterology and Hepatology [facility] [place] [address] V: [phone] F: [phone] CC/EC: Ingrid Espinosa, AIX SYSTEM ADMINISTRATOR [address] [place] [address] documented in this encounter Plan of Treatment Upcoming Encounters Date Type Specialty Care Team Description 03/06/2022 Office Visit Cardiology Liezth Frazier MD [facility] [address] [place], [place] [address] (Amado quick) 03/18/2022 Office Visit Neurology Donovan Mayer MD [facility] NEUROLOGY DEPT. [place], [place] [address] (Amado quick) 04/24/2022 Appointment Hematology and Oncology 04/24/2022 Office Visit Hematology and Oncology Renea Navarro MD [facility] HEMATOLOGY/ONCOL CLAUDE DEPT. [place], [place] [address] (Amado quick) documented as of this encounter Visit Diagnoses Diagnosis Incontinence of feces, unspecified fecal incontinence type documented in this encounter Care Teams Business Teacher Relationship Specialty Start Date End Date Ingrid Espinosa APRN PCP - General Internal Medicine 07/28/[address] [place] [address] documented as of this encounter
--- OUTSIDE RECORDS SUMMARY | 2021-12-21 00:33 | XMS_ITS | Encounter Summary ---
:1950 Author Organization [facility] [place] [address] Care Team Providers Name Role Phone Ingrid Espinosa PRODUCTION GEAR CUTTER Primary Care Provider Encounter Details Date Type Department Care Team Description 06/30/2020 Ancillary [facility] [address] [place] [id number] [phone] (Wo rk) Social History Tobacco Use Types [...] 03/06/2022 Office Visit Cardiology Lizeth Frazier MD [facility] [address] [place], [place] [address] (Wo rk) 03/18/2022 Office Visit Neurology Donovan Mayer MD [facility] ER NEUROLOGY DEPT. [place], [place] [address] (Wo rk) 04/24/2022 Appointment Hematology and Oncology 04/24/2022 Office Visit Hematology and Oncology Renea Navarro MD [facility] HEMATOLOGY/ONCOL OGY DEPT. [place], [place] [address] (Wo rk) documented as of this encounter Procedures Procedure Name Priority Date/Time Associated Diagnosis Comme nts FILM LIBRARY Routine 06/30/2020 12:00 AM Results for this STORAGE ONLY MAMMO EST procedure are in the results section. documented in this encounter Results Film Library- Storage Only Mammo (06/30/2020 12:00 AM EST) Specimen (Source) Anatomical Location Collection Method / Collectio n Time Received Time / Laterality Volume Narrative [facility] - 07/14/2020 2:15 PM EST This exam is auto-finalizing. It's purpo se is for storage only. Ingrid Espinosa APRN IMG FILM LIBRARY ORDERABLES Performing Organization Address City/State/ZIP Code Phon e Number [place], [place] documented in this encounter Visit Diagnoses Not on filedocumented in this encounter Care Teams Pastoral Ministries Professor Relationship Specialty Start Date End Date Ingrid Espinosa APRN PCP - General Internal Medicine 07/28/[address] [place] [address] documented as of this encounter
--- OUTSIDE RECORDS SUMMARY | 2021-12-21 00:33 | XMS_ITS | Encounter Summary ---
:1950 Author Organization [facility] [place] [address] Care Team Providers Name Role Phone Ingrid Espinosa Uriel PALACIOS Primary Care Provider Encounter Details Date Type Department Care Team Description 08/04/2020 External Results Hematology and Oncology [place] [address] Social History Tobacco Use Types Packs/Day [...] 03/06/2022 Office Visit Cardiology Lizeth Frazier MD [facility] er [address] [place] [address] (Wo rk) 03/18/2022 Office Visit Neurology Donovan Mayer MD [facility] NEUROLOGY DEPT. [place], [place] [address] (Wo rk) 04/24/2022 Appointment Hematology and Oncology 04/24/2022 Office Visit Hematology and Oncology Renea Navarro MD [facility] er HEMATOLOGY/ONCOL CLAUDE DEPT. [place], [place] [address] (Wo rk) documented as of this encounter Procedures Procedure Name Priority Date/Time Associated Comments Diagnosis CBC (WITH DIFF) Routine 06/09/2020 1:51 PM Result s for this EST procedure are i n the results section. COMPREHENSIVE Routine 06/09/2020 1:51 PM Results for this METABOLIC PANEL EST procedure ar e in (NON-FASTING) the results section. documented in this encounter Results Comprehensive metabolic panel (non-fasting) (06/09/2020 1:51 PM EST) P athologist Signature Glucose Lvl 96 EXTERNAL LAB BUN 17 EXTERNAL LAB Creatinine 0.80 EXTERNAL LAB Estimated GFR >=60 EXTERNAL LAB Sodium 143 EXTERNAL LAB Potassium 4.1 EXTERNAL LAB Chloride 106 EXTERNAL LAB CO2 29 EXTERNAL LAB Calcium 9.6 EXTERNAL LAB Total Protein 6.8 EXTERNAL LAB Albumin 4.1 EXTERNAL LAB Total Bilirubin 0.4 EXTERNAL LAB Alk Phos 58 EXTERNAL LAB AST 25 EXTERNAL LAB ALT 26 EXTERNAL LAB Specimen (Source) Anatomical Collection Method Collection Time Re ceived Time Location / / Volume Laterality Blood 06/09/2020 1:51 PM EST Historical Provider CHEMISTRY ORDERABLES Performing Organization Address City/State/ZIP Code Phon e Number EXTERNAL FACILITY EXTERNAL LAB (ABNORMAL) CBC (with Diff) (06/09/2020 1:51 PM EST) P athologist Signature WBC 58.90 EXTERNAL LAB (ExtHH) Hemoglobin 14.0 EXTERNAL LAB Hematocrit 43.5 EXTERNAL LAB Platelets 164 EXTERNAL LAB Specimen (Source) Anatomical Collection Method Collection Time Re ceived Time Location / / Volume Laterality Blood 06/09/2020 1:51 PM EST Historical Provider HEMATOLOGY ORDERABLES Performing Organization Address City/State/ZIP Code Phon e Number EXTERNAL FACILITY EXTERNAL LAB documented in this encounter Visit Diagnoses Not on filedocumented in this encounter Care Teams Senior Energy Analyst Relationship Specialty Start Date End Date Ingrid Espinosa APRN PCP - General Internal Medicine 07/28/[address] [place] [address] [place] [address] documented as of this encounter
--- OUTSIDE RECORDS SUMMARY | 2021-12-21 00:33 | XMS_ITS | Encounter Summary ---
:1950 Author Organization [facility] [place] [address] Care Team Providers Name Role Phone FranciscaGuillerminaIngridcresencio Trevino APRN Primary Care Provider Encounter Details Date Type Department Care Team Description 06/16/2020 Telephone Gastroenterology at [facility] Suri Newton, [facility] [place] [address] [facility] [phone] GASTROENTEROLOGY [place], [place] [address] (Wo rk) Social History Tobacco [...] this encounter Miscellaneous Notes Telephone Encounter - Suri Newton APRN - 06/16/2020 11:05 AM EST Called patient in follow up. Has been taking cholestyramine-- 2 tablets once daily. No further diarrhea. No further episodes of fecal incontinence. We discussed the utility of budesonide versus continuing with a bile acid sequestrant. She will check the flores of the budesonide and if covered would like to try a course. She has stopped all statin medications I will prescribe: Budesonide 9 mg once daily x30 days, 6 mg once daily x30 days, then budesonide 3 mg once daily x30 days, then stop. She would like this sent into her mail order pharmacy. documented in this encounter Plan of Treatment Upcoming Encounters Date Type Specialty Care Team Description 03/06/2022 Office Visit Cardiology Lizeth Frazier MD [facility] [address] [place], [place] [address] (Wo rk) 03/18/2022 Office Visit Neurology Donovan Mayer MD [facility] NEUROLOGY DEPT. [place], [place] [address] (Wo rk) 04/24/2022 Appointment Hematology and Oncology 04/24/2022 Office Visit Hematology and Oncology Renea Navarro MD [facility] HEMATOLOGY/ONCOL [place]IY DEPT. [place], [place] [address] (Wo rk) documented as of this encounter Visit Diagnoses Not on filedocumented in this encounter Care Teams Forming Yardage Control Operator Relationship Specialty Start Date End Date Ingrid Espinosa APRN PCP - General Internal Medicine 07/28/17 [address] [place] [address] documented as of this encounter
--- OUTSIDE RECORDS SUMMARY | 2021-12-21 00:33 | XMS_ITS | Encounter Summary ---
:1950 Author Organization [facility] [place] [address] Care Team Providers Name Role Phone Ingrid Espinosa Uriel PALACIOS Primary Care Provider Encounter Details Date Type Department Care Team Description 06/16/2020 Orders Only Gastroenterology at [facility] Suri Newton, [facility] [place] [address] [facility] [phone] GASTROENTEROLOGY [place], [place] [address] (Wo rk) Social History Tobacco [...] 03/06/2022 Office Visit Cardiology Lizeth Frazier MD [facility] [address] [place], [place] [address] (Wo rk) 03/18/2022 Office Visit Neurology Donovan Mayer MD [facility] ER NEUROLOGY DEPT. [place], [place] [address] (Wo rk) 04/24/2022 Appointment Hematology and Oncology 04/24/2022 Office Visit Hematology and Oncology Renea Navarro MD [facility] HEMATOLOGY/ONCOL [place] DEPT. [place], [place] [address] (Wo rk) documented as of this encounter Visit Diagnoses Not on filedocumented in this encounter Care Teams Oven Technician Relationship Specialty Start Date End Date Ingrid Espinosa APRN PCP - General Internal Medicine 07/28/[address] [place] [address] documented as of this encounter
--- OUTSIDE RECORDS SUMMARY | 2021-12-21 00:33 | XMS_ITS | Encounter Summary ---
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 [place], [place] [address] (Wo rk) 04/24/2022 Appointment Hematology and Oncology 04/24/2022 Office Visit Hematology and Oncology Renea Navarro MD [facility] er HEMATOLOGY/ONCOL CALIY DEPT. [place], [place] [address] (Wo rk) documented as of this encounter Results (ABNORMAL) Lactate Dehydrogenase (07/13/2020 1:23 PM EST) athologist Signature LDH 252 (H) 110 - 220 [facility] unit/L [facility] Specimen Anatomical Collection Method Collection Time Receive d Time (Source) Location / / Volume Laterality Blood specimen 07/13/2020 1:23 PM 021 1:33 (specimen) EST PM EST Resulting Agency Comment Spec In Lab Virgilio Navarro MD CHEMISTRY ORDERABLES Performing Organization Address City/State/[place] [address] (ABNORMAL) Comprehensive metabolic panel (non-fasting) (07/13/2020 1:23 PM EST) athologist [facility] Glucose Lvl 158 65 - 199 [facility] mg/dL [facility] Comment: Diabetes: >=200 mg/dL plus symp toms BUN 21 (H) 8 - 18 mg/dL [facility] Creatinine 0.79 0.70 - 1.20 mg/dL [...] estions. Chloride 106 98 - 107 mmol/L [facility] CO2 23 22 - 31 mmol/L [facility] Anion Gap 12 5 - 15 mmol/L [facility] Calcium 10.2 8.5 - 10.5 mg/dL [facility] Total Protein 6.9 6.1 - 8.0 gm/dL [facility] Albumin 4.6 3.2 - 5.2 gm/dL [facility] AST 25 0 - 30 unit/L [facility] ALT 16 0 - 30 unit/L [facility] Alk Phos 61 35 - 105 unit/L [facility] Total Bilirubin 0.3 0.2 - 1.3 mg/dL [facility] Estimated GFR 75 >=60 mL/min/1.73 m?? [facility] Comment: This patient? s estimated glomerular [...] Organization Address City/State/[place] [address] documented in this encounter Visit Diagnoses Diagnosis CLL (chronic lymphocytic leukemia) Chronic lymphoid leukemia, without menti on of having achieved remission documented in this encounter Care Teams Customer Service Engineer Relationship Specialty Start Date End Date Ingrid Espinosa APRN PCP - General Internal Medicine 07/28/[address] [place] [address] documented as of this encounter
--- OUTSIDE RECORDS SUMMARY | 2021-12-21 00:33 | XMS_ITS | Encounter Summary ---
:1950 Author Organization [facility] [place] [address] Care Team Providers Name Role Phone Ingrid Espinosa Uriel PALACIOS Primary Care Provider Encounter Details Date Type Department Care Team Description 09/03/2021 Notes Only Gastroenterology at [facility] Peter Nguyen, [facility] [place] [address] Social History Tobacco Use Types Packs/Day Years [...] encounter Progress Notes Peter Nguyen LPN - 09/03/2021 2:31 PM EDT Left VM for patient reminding them of their HRAM appointment on 09/04/21. Patient was instructed to refer to [facility] for detailed prep instructions to be done prior to their appointment. If patient has any questions or concerns they may call a Motility Lab nurse at . For questions specific to cancelling or rescheduling appointments the patient should call Motility Scheduling at [facility]. documented in this encounter Plan of Treatment Upcoming Encounters Date Type Specialty Care Team Description 03/06/2022 Office Visit Cardiology Lizeth Frazier MD [facility] [address] [place], [place] [address] (Wo rk) 03/18/2022 Office Visit Neurology Donovan Mayer MD [facility] NEUROLOGY DEPT. [place], [place] [address] (Wo rk) 04/24/2022 Appointment Hematology and Oncology 04/24/2022 Office Visit Hematology and Oncology Renea Navarro MD [facility] HEMATOLOGY/ONCOL [place] DEPT. [place], [place] [address] (Wo rk) documented as of this encounter Visit Diagnoses Not on filedocumented in this encounter Care Teams Professional Bass Fisher Relationship Specialty Start Date End Date Ingrid Espinosa APRN PCP - General Internal Medicine 07/28/[address] [place] [address] documented as of this encounter
--- OUTSIDE RECORDS SUMMARY | 2021-12-21 00:33 | XMS_ITS | Encounter Summary ---
:1950 Author Organization [facility] [place] [address] Care Team Providers Name Role Phone Ingrid Espinosa Uriel PALACIOS Primary Care Provider Reason for Referral (Routine) - Closed Specialty Diagnoses / Procedures Referred By Contact Refer red To Contact Diagnoses CLL (chronic lymphocytic leukemia) Thrombocytopenia Virgilio Navarro MD Procedures Chromosome Analysis, Acquired [facility] HEMATOLOGY/[place] [address] Referral ID Status Reason Start Date Expiration Date Visits Requ ested Visits Authorized [id number] Closed 10/26/2020 10/26/2021 1 1 Reason for Visit Reason Comments Follow-up Encounter Details Date Type Department Care Team Description 10/26/2020 Office Visit Hematology and Ramon, CLL (chronic lymphocytic leukemia); Oncology at [facility] MD Virgilio Thrombocytopenia [facility] PATRICK Galvin HEMATOLOGY/ONCOL [id number] OGY DEPT. [phone] [place] [address] Social History Tobacco Use Types Packs/Day Years [...] Sign Reading Time Taken Comments Blood Pressure 128/81 10/26/2020 2:14 PM EDT Pulse 73 10/26/2020 2:14 PM EDT Temperature 36.4 ??C (97.5 ??F) 10/26/2020 2:14 PM EDT Respiratory Rate 18 10/26/2020 2:14 PM EDT Oxygen Saturation 99% 10/26/2020 2:14 PM EDT Inhaled Oxygen Concentration - - Weight 96.3 kg (212 lb 3.2 oz) 10/26/2020 2:14 PM EDT Height 171.1 cm (5' 7.36) 10/26/2020 2:14 PM EDT Body Mass Index 32.88 10/26/2020 2:14 PM EDT documented in this encounter Progress Notes Virgilio Navarro MD - 10/26/2020 2:30 PM EDT Images from the original note were not included. HEMATOLOGY FOLLOW UP VISIT NOTE REASON FOR VISIT: Saundra Blanton is a 70 y.o. female referred by Ingrid Espinosa APRN for f/up for CLL. PROBLEM LIST: 1) CLL: ?? Presentation:Incidentally noted to have inguinal and para aortic TIAN on MRI performed for back pain which was confirmed on f/up CT. F/up CBC on 09/24/17 revealed WBC of 20.5, with 84% lymphocytes (ALCof 17.4), Hgb of 14.8, MCV: 90, Plt count: 159. 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 [facility], at [facility] and with Suri Newton APRN at [facility] ?? EGD: 06/30/18: Notable for medium-sized hiatal hernia, multiple gastric polyps. Biopsied. Path: fundic gland polyps. ?? Colonoscopy : 06/30/18: Diverticulosis in the sigmoid colon and in the descending colon ; Internalhemorrhoids ?? NM octreoscan: 06/16/18: No evidence of disease. ?? Saw Dr. Rodriguez at [facility] on 01/13/19 who felt that she does not need routine surveillance, either for the carcinoid or for the fundic gland polyps. 3. HTN Hypothyroidism 5. H/o DVT Provoked LLE DVT post- after 1 month bedrest and , 1986. Treated for a number of years per pt. R popliteal and posterior tibial DVT 2005. Repeat U/S OSH 2006 normal. intermediate anticoagulation since 2005. Stopped in 2011 Seen at [facility] - Testing was negative for an underlying inherited or acquired disorder of coagulation ?? 6. Renal angiomyolipomas, follows with Urology at [facility], Dr. Du 7. Hyperlipidemia 8. Dysplastic nevus resected from left thigh in 02/2018. Follows with Dermatology at [facility] 9. Colonoscopy 06/30/18 - Impression:??- The entire examined colon is normal. Biopsied. ?- The examined portion of the ileum was normal. ?- Diverticulosis in the sigmoid colon and in the descending colon. ?- Internal hemorrhoids. Path - Random colon, biopsy: - Lymphocytic colitis. 10. Lumbar radiculopathy 11.Peripheral neuropathy in LE related to disc disease 12. GERD INTERIM HISTORY: Saundra Blanton is a 70 y.o. female with PMH of carcinoid tumor of stomach, bilateral angiomyolipomas,being followed by urology at [facility], presenting for f/up for CLL. She was found to have a tick on her Rt upper arm on last Friday by her PT who removed the tick and she took Doxy 100mg bid. - Noticed new LNs in both sides of the neck No other new issues. Saw Dr. Mayer earlier today No fevers. No drenching nigh sweats. - No recurrent infections She is fully vaccinated for COVID-19 - [...] as above Other ROS: All negative MEDICATIONS ? ? budesonide EC (Entocort EC) 3 mg Capsule, Delayed & Ext.Release ??? melatonin 10 mg Capsule ??? calcium citrate (Calcitrate) 200 mg (950 mg) Tablet ??? buPROPion XL (Wellbutrin XL) 150 mg [...] ??? cetirizine (ZyrTEC) 10 mg Tablet ??? simvastatin (ZOCOR) 20 mg Tablet ??? fluticasone propionate (FLONASE) 50 mcg/actuation [place], Suspension ??? Bifidobacterium infantis (ALIGN) 4 mg [...] MISC) ??? levothyroxine (SYNTHROID) 25 mcg tablet ALLERGIES/ADR Allergies Allergen Reactions ??? Latex Rash [...] Not on file Occupational History ??? 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 Smoking [...] Social Determinants of Health Financial Resource Strain: ??? Difficulty of Paying Living Expenses: Food Insecurity: ??? Worried About Running Out of Food in the Last Year: ??? Ran Out of Food in the Last Year: Transportation Needs: ??? Lack of Transportation (Medical): ??? Lack of Transportation (Non-Medical): Physical Activity: ??? Days of Exercise per Week: ??? 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 [facility] Contact Permission:?? OK to leave message [...] syn; PHYSICAL EXAM VITAL SIGNS: Blood pressure 128/81, pulse 73, temperature 36.4 ??C (97.5 ??F), temperature source Temporal, resp. rate 18, height 171.1 cm (5' 7.36), weight 96.3 kg (212 lb 3.2 oz), SpO2 99 %. ECOG PS: 1 GENERAL: Saundra Blanton is a well-appearing 70 y.o. female in no acute distress. HEENT: [...] non-tender without palpable masses or hepatosplenomegaly. MUSCULOSKELETAL: Neck supple with full ROM. No spine or CVA tenderness. Right leg on supporting brace; SKIN: Erythematous, raised , indurated rash on Lt upper arm as seen in the picture at the site of tick bite LYMPH: ~ 5mm multiple palpable LNs in the right supraclavicular region; ~ 1.5- 2cm LN in the right axilla; ~ a sub centimeter node on the Lt clavicular area; No other axillary/inguinal lymphadenopathy. NEUROLOGICAL: Alert and oriented to person, place and time; No focal neurological deficits; PSYCHIATRIC: normal affect and mood LABORATORY Recent Results (from the past 72 hour(s)) Lactate Dehydrogenase Result Value Ref Range LDH 244 (H) 110 - 220 unit/L Comprehensive metabolic panel (non-fasting) Result Value Ref Range Glucose Lvl 107 65 - 199 mg/dL BUN 16 8 - 18 mg/dL Creatinine 0.77 0.70 - 1.20 mg/dL Sodium 143 135 - 145 mmol/L Potassium 4.4 3.5 - 5.0 mmol/L Chloride 105 98 - 107 mmol/L CO2 28 22 - 31 mmol/L Anion Gap 10 5 - 15 mmol/L Calcium 10.3 8.5 - 10.5 mg/dL Total Protein 6.5 6.1 - 8.0 gm/dL Albumin 4.4 3.2 - 5.2 gm/dL AST 29 0 - 30 unit/L ALT 17 0 - 30 unit/L Alk Phos 71 35 - 105 unit/L Total Bilirubin 0.3 0.2 - 1.3 mg/dL Estimated GFR 78 >=60 mL/min/1.73 m?? Hemogram Result Value Ref Range WBC 51.3 (CRIT) 4.0 - 9.5 x10(3)/mcL RBC 4.43 4.00 - 5.21 x10(6)/mcL Hemoglobin 13.3 11.7 - 15.5 gm/dL Hematocrit 42.0 35.7 - 45.8 % MCV 94.8 (H) 82.6 - 94.4 fL MCH 30.0 27.1 - 32.0 pg MCHC 31.7 31.7 - 35.0 gm/dL Platelets 181 145 - 357 x10(3)/mcL RDWSD 48.2 (H) 37.0 - 46.0 fL RDWCV 14.0 11.5 - 14.1 % MPV 11.0 7.6 - 12.9 fL nRBC % Auto 0.1 % nRBC Abs Auto 0.060 (H) 0.000 - 0.000 x10(3)/mcL Differential, Automated Result Value Ref Range Neutrophils % 5.9 % Neutr Abs (ANC) 2.99 1 - 6 x10(3)/mcL Lymphocytes % 89.4 % Lymphocytes Abs 45.9 (H) 0.9 - 3.2 x10(3)/mcL Monocytes % 3.7 % Monocyte Abs 1.9 (H) 0.3 - 0.9 x10(3)/mcL Eosinophils % 0.5 % Eosinophils Abs 0.3 0.0 - 0.4 x10(3)/mcL Basophils % 0.4 % Basophils Abs 0.2 (H) 0.0 - 0.1 x10(3)/mcL Immature Gran % 0.10 % Betty Gran Abs 0.06 (H) 0.00 - 0.04 x10(3)/mcL Scan, Peripheral [...] from today: H&H and platelets are normal; ALC is stable at ~51k Compared to her prior labs in , better than her ALC in Jun, 2020. . LDH remain slightly high at 244 (has been elevated for the past 2 years). As ALC went up sigificantly on her labs at last visit, I ordered FISH panel in anticipation of intiating therapy soon, However, as her ALC is back to her prior baseline, she does not have any other indication to initiate therapy, will continue with active surveillance. RTC for f/up with CBC,CMP,LDH in 4 months. # Tick bit - has rash related to that. She does not know who long she has had it prior to its removal. So, I recommend testing for lyme disease in 7-10 days. She is going to see PCP about this. # Hypogammaglobulinemia: IgG normal in 06/2019. . # b/ Angiomyolipomas : being followed by urology; I reviewed my impression and recommendations with Saundra Blanton and answered all the questions to her satisfaction. she understands the plan, and knows that she can contact us at any time should any new symptoms, concerns or questions arise. Virgilio Navarro MD [facility] CC: Ingrid Espinosa APRN documented in this encounter Plan of Treatment Upcoming Encounters Date Type Specialty Care Team Description 03/06/2022 Office Visit Cardiology Lizeth Frazier MD [facility] [address] [place] [address] (Wo rk) 03/18/2022 Office Visit Neurology Donovan Mayer MD [facility] NEUROLOGY DEPT. [place], [place] [address] (Wo rk) 04/24/2022 Appointment Hematology and Oncology 04/24/2022 Office Visit Hematology and Oncology Renea Navarro MD [facility] HEMATOLOGY/ONCOL OGY DEPT. [place], [place] [address] (Wo rk) Scheduled Orders Name Type Priority Associated Diagnoses Order S chedule CBC (with Diff) Lab Routine CLL (chronic Every 3 clif hs for 4 lymphocytic leuk emia) Occurrences starting Thrombocytopenia 10/26/2020 until 10/26/2021, 3 c ompleted Comprehensive metabolic Lab Routine CLL (chronic Ever y 3 months for 4 panel (non-fasting) lymphocytic leukemia) Occurrences starting Thrombocytopenia 10/26/2020 until 10/26/2021, 3 c ompleted Lactate Dehydrogenase Lab Routine CLL (chronic Every 3 months for 4 lymphocytic leuk emia) Occurrences starting Thrombocytopenia 10/26/2020 until 10/26/2021, 3 c ompleted documented as of this encounter Results (ABNORMAL) Lactate Dehydrogenase (07/04/2021 10:56 AM EST) P athologist Signature LDH 261 (H) 110 - 220 [facility] unit/L [facility] Specimen Anatomical Collection Method Collection Time Receive d Time (Source) Location / / Volume Laterality Blood 07/04/2021 10:56 07/04/2021 AM EST 11:14 AM EST Resulting Agency Comment Spec In Lab Virgilio Navarro MD CHEMISTRY ORDERABLES Performing Organization Address City/State/[place] [address] Comprehensive metabolic panel (non-fasting) (07/04/2021 10:56 AM EST) P athologist Signature Glucose Lvl 89 65 - 199 [facility] mg/dL [facility] Comment: Diabetes: >=200 mg/dL plus symp toms BUN 16 8 - 18 mg/dL [facility] Creatinine 0.81 0.70 - 1.20 mg/dL [facility] Sodium 141 135 - 145 mmol/L [facility] Potassium 4.4 3.5 - 5.0 mmol/L [facility] Comment: Please note: ??Patients with WBC >100,00 0 may have falsely elevated Potassium levels. ??For accurate Potassium quantif ication in these patients send serum separator tube (gold top) for subsequent determinations. ??Contact the Clinical Chemistry Laboratory if there are any qu estions. Chloride 102 98 - 107 mmol/L [facility] CO2 27 22 - 31 mmol/L [facility] Anion Gap 12 5 - 15 mmol/L [facility] Calcium 10.2 8.5 - 10.5 mg/dL [facility] Total Protein 6.7 6.1 - 8.0 g/dL [facility] Albumin 4.7 3.2 - 5.2 g/dL [facility] AST 23 0 - 30 unit/L [facility] ALT 13 0 - 30 unit/L [facility] Alk Phos 79 35 - 105 unit/L [facility] Total Bilirubin 0.4 0.2 - 1.3 mg/dL [facility] Estimated GFR 73 >=60 mL/min/1.73 m?? [facility] Comment: This patient? s [...] Organization Address City/State/ZIP Code Phon e Number [address] (ABNORMAL) Lactate Dehydrogenase (02/22/2021 2:59 PM EDT) athologist Signature LDH 242 (H) 110 - 220 [facility] unit/L [facility] Specimen Anatomical Collection Method Collection Time Receive d Time (Source) Location / / Volume Laterality Blood 02/22/2021 2:59 PM 3:05 EDT PM EDT Resulting Agency Comment Spec In Lab Virgilio Navarro MD CHEMISTRY ORDERABLES Performing Organization Address City/State/ZIP [facility] [place] [place] [address] Comprehensive metabolic panel (non-fasting) (02/22/2021 2:59 PM EDT) P athologist Signature Glucose Lvl 101 65 - 199 [facility] mg/dL [facility] Comment: Diabetes: >=200 mg/dL plus symp toms BUN 14 8 - 18 mg/dL [facility] Creatinine 0.75 0.70 - 1.20 mg/dL [facility] Sodium 142 135 - 145 mmol/L [facility] Potassium 4.1 3.5 - 5.0 mmol/L [facility] Comment: Please note: ??Patients with WBC >100,00 0 may have falsely elevated Potassium levels. ??For accurate Potassium quantif ication in these patients send serum separator tube (gold top) for subsequent determinations. ??Contact the Clinical Chemistry Laboratory if there are any qu estions. Chloride 104 98 - 107 mmol/L [facility] CO2 29 22 - 31 mmol/L [facility] Anion Gap 9 5 - 15 mmol/L [facility] Calcium 10.3 8.5 - 10.5 mg/dL [facility] Total Protein 6.9 6.1 - 8.0 g/dL [facility] Albumin 4.7 3.2 - 5.2 g/dL [facility] AST 23 0 - 30 unit/L [facility] ALT 15 0 - 30 unit/L [facility] Alk Phos 103 35 - 105 unit/L [facility] Total Bilirubin 0.3 0.2 - 1.3 mg/dL [facility] Estimated GFR 80 >=60 mL/min/1.73 m?? [facility] Comment: This patient? s [...] Navarro MD CHEMISTRY ORDERABLES Performing Organization Address City/[facility]/[place]IP [place] [address] (ABNORMAL) Lactate Dehydrogenase (10/26/2020 1:21 PM EDT) P athologist Signature LDH 244 (H) 110 - 220 [facility] unit/[facility] LABOR[facility] Specimen Anatomical Collection Method Collection Time Receive d Time (Source) Location / / Volume Laterality Blood 10/26/2020 1:21 PM 1 1:33 EDT PM EDT Resulting Agency Comment Spec In Lab Virgilio Navarro MD CHEMISTRY ORDERABLES Performing Organization Address City/[facility]/[place]IP [place] [address] Comprehensive metabolic panel (non-fasting) (10/26/2020 1:21 PM EDT) P athologist Signature Glucose Lvl 107 65 - 199 [facility] mg/dL [facility] Comment: Diabetes: >=200 mg/dL plus symp toms BUN 16 8 - 18 mg/dL [facility] Creatinine 0.77 0.70 - 1.20 mg/dL [facility] Sodium 143 135 - 145 mmol/L [facility] Potassium 4.4 3.5 - 5.0 mmol/L [facility] Comment: Please note: ??Patients with WBC >100,00 0 may have falsely elevated Potassium levels. ??For accurate Potassium quantif ication in these patients send serum separator tube (gold top) for subsequent determinations. ??Contact the Clinical Chemistry Laboratory if there are any qu estions. Chloride 105 98 - 107 mmol/L [facility] CO2 28 22 - 31 mmol/L [facility] Anion Gap 10 5 - 15 mmol/L [facility] Calcium 10.3 8.5 - 10.5 mg/dL [facility] Total Protein 6.5 6.1 - 8.0 gm/dL [facility] Albumin 4.4 3.2 - 5.2 gm/dL [facility] AST 29 0 - 30 unit/L [facility] ALT 17 0 - 30 unit/L [facility] Alk Phos 71 35 - 105 unit/L [facility] Total Bilirubin 0.3 0.2 - 1.3 mg/dL [facility] Estimated GFR 78 >=60 mL/min/1.73 m?? [facility] Comment: This patient? s estimated glomerular filtration rate (eGFR) is between 78 mL/min/1.73 m2 (patients with less muscl e mass) and 90 mL/min/1.73 m2 (patients with more muscle mass) [...] (Source) Location / / Volume Laterality Blood 10/26/2020 1:21 PM 1 1:33 EDT PM EDT Resulting Agency Comment Spec In Lab Virgilio Navarro MD CHEMISTRY ORDERABLES Performing Organization Address City/State/[place] [address] documented in this encounter Visit Diagnoses Diagnosis CLL (chronic lymphocytic leukemia) Chronic lymphoid leukemia, without menti on of having achieved remission Thrombocytopenia Thrombocytopenia, unspecified documented in this encounter Care Teams Airplane Inspector Relationship Specialty Start Date End Date Ingrid Espinosa APRN PCP - General Internal Medicine 07/28/[address] [place] [address] documented as of this encounter
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
--- OUTSIDE RECORDS SUMMARY | 2021-12-21 00:33 | XMS_ITS | Encounter Summary ---
:1950 Author Organization [facility] [place] [address] Care Team Providers Name Role Phone Guillermina Espinosayce Uriel PALACIOS Primary Care Provider Encounter Details Date Type Department Care Team Description 06/28/2020 Telephone Cardiology at [facility], Lizeth Mcbride MD [address] [place] [address] [place] [address] (Wo rk) Social History Tobacco Use Types [...] this encounter Miscellaneous Notes Telephone Encounter - Linda Uriostegui RN - 06/29/2020 9:57 AM EST Per MD Frazier patient may stop metoprolol 24 hours prior to procedure. Nurse will fax Dr. Cassidy office the recommendation. Nurse left message for patient to contact office. 1013 patient returned call and updated on the plan of care. Telephone Encounter - Pippa Silverman Casa - 06/28/2020 11:29 AM EST Patient called and is anxious about the note she sent to Dr Frazier about allergy testing on Jul 03. She needs to have an note faxed to Dr Cassidy @ [phone] to stop her Metoprolol 24 hrs prior tothe testing. Please call PT [phone] documented in this encounter Plan of Treatment Upcoming Encounters Date Type Specialty Care Team Description 03/06/2022 Office Visit Cardiology Lizeth Frazier MD [facility] [address] [place], [place] [address] (Wo rk) 03/18/2022 Office Visit Neurology Donovan Mayer MD [facility] NEUROLOGY DEPT. [place], [place] [address] (Wo rk) 04/24/2022 Appointment Hematology and Oncology 04/24/2022 Office Visit Hematology and Oncology Renea Navarro MD [facility] HEMATOLOGY/ONCOL OGY DEPT. [place], [place] [address] (Wo rk) documented as of this encounter Visit Diagnoses Not on filedocumented in this encounter Care Teams Roller Leveler Operator Relationship Specialty Start Date End Date Ingrid Espinosa APRN PCP - General Internal Medicine 07/28/[address] [place] [address] documented as of this encounter
--- OUTSIDE RECORDS SUMMARY | 2021-12-21 00:33 | XMS_ITS | Encounter Summary ---
:1950 Author Organization [facility] [address] Care Team Providers Name Role Phone Guillermina Espinosacresencio Trevino APRN Primary Care Provider Reason for Referral (Routine) - Closed Specialty Diagnoses / Procedures Referred By Contact Refer red To Contact Diagnoses CLL (chronic lymphocytic leukemia) Thrombocytopenia Virgilio Navarro MD Procedures Chromosome Analysis, Acquired [facility] HEMATOLOGY/[place] [address] Referral ID Status Reason Start Date Expiration Date Visits Requ ested Visits Authorized [id number] Closed 10/26/2020 10/26/2021 1 1 Reason for Visit (Routine) - Closed Specialty Diagnoses / Procedures Referred By Contact Refer red To Contact Diagnoses CLL (chronic lymphocytic leukemia) Thrombocytopenia Virgilio Navarro MD Procedures Chromosome Analysis, Acquired [facility] HEMATOLOGY/[place] [address] Referral ID Status Reason Start Date Expiration Date Visits Requ ested Visits Authorized [id number] Closed 10/26/2020 10/26/2021 1 1 Encounter Details Date Type Department Care Team Description 10/26/2020 Hospital Encounter Hematology and CLL (ch ronic lymphocytic leukemia); [place] [address] Social History Tobacco Use Types Packs/Day Years [...] (FLONASE) 50 Nare route daily as mcg/actuation [place]nathy, needed. Suspension Bifidobacterium infantis Take by mouth. [...] 0 tablet mouth daily. OXYGEN-AIR DELIVERY by Misc.(Non-Drug; 0 SYSTEMS (HORIZON NASAL Combo Route) route [...] 03/06/2022 Office Visit Cardiology Lizeth Frazier MD [facility] [address] [place] [address] (Wo ynes) 03/18/2022 Office Visit Neurology Donovan Mayer MD [facility] ER NEUROLOGY DEPT. [place], [place] [address] (Amado quick) 04/24/2022 Appointment Hematology and Oncology 04/24/2022 Office Visit Hematology and Oncology Renea Navarro MD [facility] HEMATOLOGY/ONCOL CALI DEPT. [place], [place] [address] (Wo rk) documented as of this encounter Procedures Procedure Name Priority Date/Time Associated Comments Diagnosis CHROMO REPORT ACQUIRED Routine 10/26/2020 1:21 PM CLL (chronic Results for this EDT lymphocytic procedure are i n leukemia) the results Thrombocytopenia section. SCAN, PERIPHERAL BLOOD Routine 10/26/2020 1:21 PM Results for this EDT procedure are i n the results section. HEMOGRAM Routine 10/26/2020 1:21 PM CLL (chronic Results f or this EDT lymphocytic procedure are i n leukemia) the results Thrombocytopenia section. HC MOLECULAR Routine 10/26/2020 1:21 PM CLL (chronic CYTOGENETICS,DNA EDT lymphocytic PROBE,EACH leukemia) Thrombocytopenia DIFFERENTIAL, Routine 10/26/2020 1:21 PM CLL (chronic Results for this AUTOMATED EDT lymphocytic procedure are i n leukemia) the results Thrombocytopenia section. HC CBC,PLT & AUTO DIFF Routine 10/26/2020 1:21 PM CLL (chronic EDT lymphocytic leukemia) Thrombocytopenia HC VENIPUNCTURE Routine 10/26/2020 1:21 PM CLL (chronic Result s for this EDT lymphocytic procedure are i n leukemia) the results Thrombocytopenia section. COMPREHENSIVE Routine 10/26/2020 1:21 PM CLL (chronic Results for this METABOLIC PANEL EDT lymphocytic procedure ar e in (NON-FASTING) leukemia) the results Thrombocytopenia section. documented in this encounter Results chromo report acquired (10/26/2020 1:21 PM EDT) Component Value Ref Test Analysis Performed At [facility] Method Time Signature Cytogenetics Final Report LIZETH Acquired Report [facility] ? [id number] HOSPITAL LABORATORY Specimen Type: Blood Specimen Condition: ~8.5mL, adequate Collection Date/Time: 10/26/2020 13:21 Received Date/Time: 10/26/2020 14:27 Indication: ??CLL ---Results--- CLL FISH panel: ?? 13q14.3 and SERGO loci deletion DETECTED. ?? IGH-CCND1/t(11;14) rearrangment and trisomy 12 NOT DETECT ED. ---Karyotype--- nuc reyes(CCND1,IGH)x2,(ATMx1, TP53x2)[79/200],(Q35V5l9,R09E793w2,ZCXG4w2)[92/200] ---Preparation--- Culture Type: Direct [place] FISH Method: Interphase FISH ---Interpretation--- Interphase FISH analysis using dual-color dual-fusion probes for IGH-CCND1/t(11;14)(q13;q32) ([employer] shows 0% of 200 cells with a IGH-CCND1 rearrangement signal pattern. This i s within acceptable reference limits (0-1.5%). Thus, there is no evidence for IGH-CCND1/t( 11;14). Interphase FISH analysis usi ng probes for the TP53/17p13.1 and SERGO/11q22.3 loci ([employer] shows 0.5% and 39.5% of 200 c ells with TP53 and SERGO signal deletion patterns, respectively. This is within acc eptable reference limits for TP53 (0-6.3%), but above acce ptable limits for SERGO/11q22.3 deletion (0-7.9%). Thus, there is no evidence for TP53/17p13.1 deletion, but there is evidence for SERGO/11q22.3 gene deletion. Interphase FISH analysis usi ng probes for the D12Z3/CEP12, F31U167/13q14.3, and LAMP1/13q34 loci ([employer] shows 0.5% and 4 6.0% of 200 cells with chromosome 12 signal gain and 13q14.3 signal deletion p atterns, respectively. These are within acceptable reference limits f or trisomy 12 (0-3.8%) but significantly above the acceptable refere nce limits for 13q14.3 deletion (0-6.3%). Thus, there is eviden ce for deletion of the locus involving 13q14.3 but no evidence for trisomy 12. ---Comments--- Correlation with clinical and pathological studies is sugges jerald. ---Limitations & Disclaimers--- The FISH test was developed and its performance characteristics were determined by the [facility] ([facility]) [facility] [facility] as required by The Clinical Lab oratory Improvement Amendments (CLIA? 88) regulations. It has not been cleared or approved for specific uses by the U.S. Food and Drug Administration (FDA). The FDA has determined that such clearance or approval is not necessary. This test is used for clinical purposes. It should not be regarded as investigational or for research. P ursuant to the requirements of CLIA? 88, this laboratory has established and verified the test? s accuracy and precision. The [facility] is certified under the CLIA? 88 as qualified to perform high complexity clinical laboratory testing. Chromosome alterations outside the regions complementary to these DNA FISH probes will not be detected. 10.31.20 (Electronic Signature) Verified By: Kate Salas Specimen Anatomical Collection Method Collection Time Receive d Time (Source) Location / / Volume Laterality 10/26/2020 1:21 PM 1 2:27 EDT PM EDT Virgilio Navarro MD HEMATOLOGY ORDERABLES Performing Organization Address City/[facility]/[place] [address] Scan, Peripheral Blood (10/26/2020 1:21 PM EDT) Analysis Performed At Patho logist Time Signature Plat Estimate Normal [facility] RBC Morphology Normal [facility] Smudge Cells Present [facility] Specimen Anatomical Collection Method Collection Time Receive d Time (Source) Location / / Volume Laterality Blood 10/26/2020 1:21 PM 1 1:33 EDT PM EDT Resulting Agency Comment Spec In Lab Virgilio Navarro MD HEMATOLOGY ORDERABLES Performing Organization Address City/[facility]/ZIP Code Phon e Number [address] (ABNORMAL) Differential, Automated (10/26/2020 1:21 PM EDT) Patholo gist Method Time Signature Neutrophils % 5.9 % [facility] Neutr Abs (ANC) 2.99 1.70 - [facility] 6.10 [facility] x10(3)/[facility] LABORATORY Lymphocytes % 89.4 % [facility] Lymphocytes Abs 45.9 (H) 0.9 - 3.2 [facility] x10(3)/[facility] LABORATORY Monocytes % 3.7 % [facility] Monocyte Abs 1.9 (H) 0.3 - 0.9 [facility] x10(3)/[facility] LABORATORY Eosinophils % 0.5 % [facility] Eosinophils Abs 0.3 0.0 - 0.4 [facility] x10(3)/[facility] LABORATORY Basophils % 0.4 % [facility] Basophils Abs 0.2 (H) 0.0 - 0.1 [facility] x10(3)/[facility] LABORATORY Immature Gran % 0.10 % [facility] Comment: Immature granulocytes(IG's)percentage an d absolute count will include metamyelocytes, myelocytes, and promyelo cytes. Blood smears from CBCs yielding IG's will be scanned manually for concor dance. If this scan disagrees with the automated IG or if promyelocytes are not ed, a manual differential will be performed. Betty Gran Abs 0.06 (H) 0.00 - 0.04 x10(3)/[facility] LABORATORY Specimen Anatomical Collection Method Collection Time Receive d Time (Source) Location / / Volume Laterality Blood 10/26/2020 1:21 PM 1 1:33 EDT PM EDT Resulting Agency Comment Spec In Lab Virgilio Navarro MD HEMATOLOGY ORDERABLES Performing Organization Address City/State/[place] [address] (ABNORMAL) Hemogram (10/26/2020 1:21 PM EDT) [facility] Method Time Signature WBC 51.3 4.0 - 9.5 [facility] (Critical) x10(3)/[facility] LABORATORY RBC 4.43 4.00 - LIZETH [place] 5.21 [facility] x10(6)/[facility] LABORATORY Hemoglobin 13.3 11.7 - LIZETH [place] 15.5 gm/dL [facility] LABORATORY Hematocrit 42.0 35.7 - LIZETH [place] 45.8 % [facility] LABORATORY MCV 94.8 (H) 82.6 - [facility] 94.4 [facility] LABORATORY MCH 30.0 27.1 - LIZETH [place] 32.0 pg [facility] LABORATORY MCHC 31.7 31.7 - [facility] 35.0 gm/dL [facility] LABORATORY Platelets 181 145 - 357 [facility] x10(3)/[facility] LABORATORY RDWSD 48.2 (H) 37.0 - [facility] [place] 46.0 [facility] LABORATORY RDWCV 14.0 11.5 - [facility] 14.1 % [facility] LABORATORY MPV 11.0 7.6 - 12.9 [facility] LABORATORY nRBC % Auto 0.1 % [facility] nRBC Abs Auto 0.060 (H) 0.000 - LIZETH [place] 0.000 [facility] x10(3)/[facility] LABORATORY Specimen Anatomical Collection Method Collection Time Receive d Time (Source) Location / / Volume Laterality Blood 10/26/2020 1:21 PM 1 1:33 EDT PM EDT Resulting Agency Comment Spec In Lab Virgilio Navarro MD HEMATOLOGY ORDERABLES Performing Organization Address City/State/[place] [address] Comprehensive metabolic panel (non-fasting) (10/26/2020 1:21 PM EDT) P athologist Signature Glucose Lvl 107 65 - 199 [facility] mg/dL [facility] LABOR[facility]ORY Comment: Diabetes: >=200 mg/dL plus symp toms BUN 16 8 - 18 mg/dL [facility] LABORATORY Creatinine 0.77 0.70 - 1.20 mg/dL [facility] LABORATORY Sodium 143 135 - 145 mmol/L [facility] LABORATORY Potassium 4.4 3.5 - 5.0 mmol/L [facility] Comment: Please note: ??Patients with WBC >100,00 0 may have falsely elevated Potassium levels. ??For accurate Potassium quantif ication in these patients send serum separator tube (gold top) for subsequent determinations. ??Contact the Clinical Chemistry Laboratory if there are any qu estions. Chloride 105 98 - 107 mmol/L [facility] CO2 28 22 - 31 mmol/L [facility] Anion Gap 10 5 - 15 mmol/L [facility] Calcium 10.3 8.5 - 10.5 mg/dL [facility] Total Protein 6.5 6.1 - 8.0 gm/dL [facility] LABORATORY Albumin 4.4 3.2 - 5.2 gm/dL [facility] AST 29 0 - 30 unit/L [facility] ALT 17 0 - 30 unit/L [facility] Alk Phos 71 35 - 105 unit/L [facility] Total Bilirubin 0.3 0.2 - 1.3 mg/dL [facility] Estimated GFR 78 >=60 mL/min/1.73 m?? [facility] Comment: This patient? s estimated [...] Organization Address City/State/[place] [address] (ABNORMAL) Lactate Dehydrogenase (10/26/2020 1:21 PM EDT) P athologist Signature LDH 244 (H) 110 - 220 [facility] unit/L [facility] LABOR[facility]ORY Specimen Anatomical Collection Method Collection Time Receive d Time (Source) Location / / Volume Laterality Blood 10/26/2020 1:21 PM 1:33 EDT PM EDT Resulting Agency Comment Spec In Lab Virgilio Navarro MD CHEMISTRY ORDERABLES Performing Organization Address City/State/[place] [address] documented in this encounter Visit Diagnoses Diagnosis CLL (chronic lymphocytic leukemia) Chronic lymphoid leukemia, without menti on of having achieved remission Thrombocytopenia Thrombocytopenia, unspecified documented in this encounter Care Teams Interior Mechanic Relationship Specialty Start Date End Date Ingrid Espinosa APRN PCP - General Internal Medicine 07/28/[address] [place] [address] documented as of this encounter
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
--- OUTSIDE RECORDS SUMMARY | 2021-12-21 00:33 | XMS_ITS | Encounter Summary ---
:1950 Author Organization [place] [address] Care Team Providers Name Role Phone Guillermina Espinosayce Uriel PALACIOS Primary Care Provider Reason for Visit Reason Comments Follow-up Encounter Details Date Type Department Care Team Description 07/13/2020 Office Visit Hematology and Ramon, CLL (chronic Oncology at [facility] MD Virgilio lymphocytic leukemia) [facility] [address] [place] HEMATOLOGY/ONCOLOG [id number] Y DEPT. [phone] [place], [place] [address] Social History Tobacco Use Types [...] Sign Reading Time Taken Comments Blood Pressure 136/69 07/13/2020 1:54 PM EST Pulse 76 07/13/2020 1:54 PM EST Temperature 36.6 ??C (97.9 ??F) 07/13/2020 1:54 PM EST Respiratory Rate 20 07/13/2020 1:54 PM EST Oxygen Saturation 99% 07/13/2020 1:54 PM EST Inhaled Oxygen Concentration - - Weight 94.6 kg (208 lb 9.6 oz) 07/13/2020 1:54 PM EST Height 176.4 cm (5' 9.45) 07/13/2020 1:54 PM EST Body Mass Index 30.41 07/13/2020 1:54 PM EST documented in this encounter Patient Instructions Patient InstructionsVirgilio Navarro MD - 07/13/2020 2:00 PM EST Indications to treat CLL.: worsening anemia or thrombocytopenia, disease related symptoms (ftigue, fevers, night sweats, weightloss), bulky disease (spleen >6cm below costal margin, LN>10cm), threatened end organ functiondue to adenopathy, etc. High lymphocyte count alone is not an indication for treatment alone unless>200-300k or symptoms related to leukostasis. CLL does not require immediate treatment and the watch and wait approach is recommended. SY documented in this encounter Progress Notes Virgilio Navarro MD - 07/13/2020 2:00 PM EST Images from the original note [...] Plt count: 159. 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 Follows with Isha Lutz, [facility] surgical associates, at [facility] and with Suri Newton APRN at [facility] ?? EGD: 06/30/18: Notable for medium-sized hiatal hernia, multiple gastric polyps. Biopsied. Path: fundic gland polyps. ?? Colonoscopy : 06/30/18: Diverticulosis in the sigmoid colon and in the descending colon ; Internalhemorrhoids ?? NM octreoscan: 06/16/18: No evidence of disease. ?? Saw Dr. Rodriguez at [facility] on 01/13/19 who felt that she does not need routine surveillance, either for the carcinoid or for the fundic gland polyps. 3. HTN Hypothyroidism 5. H/o DVT Provoked LLE DVT post- after 1 month bedrest and , 1986. Treated for a number of years per pt. R popliteal and posterior tibial DVT 2005. Repeat U/S OSH 2006 normal. MCC anticoagulation since 2005. Stopped in 2011 Seen at [facility] - Testing was negative for an underlying inherited or acquired disorder of coagulation ?? 6. Renal angiomyolipomas, follows with Urology at [facility], Dr. Du 7. Hyperlipidemia 8. Dysplastic nevus resected from left thigh in 02/2018. Follows with Dermatology at [facility] 9. Colonoscopy 06/30/18 - Impression:??- The entire [...] stomach, bilateral angiomyolipomas,being followed by urology at [facility], presenting for f/up for CLL. She had an episode of sinusitis, treated with doxycycline. No other infections. Had mammo which showed b/l axillary TIAN. Will get that report. No fevers. No drenching nigh sweats. She joined diabetes prevention program,doing lot of out door activities. She lost 40lbs with in the past year ! - She felt a lump on her Lt lr leg and shows that. - No lumps and bumps that she noticed anywhere else since last seen. - No recurrent infections She got her 1st COVID-19 vaccine on 07/07. - No active cardiac/resp/GI issues ; Rest of the ROS : negative; REVIEW OF SYSTEMS Constitutional --Energy level: as above --Pain: chronic back pain and right LE pain as above --Fevers/chills/sweats: No --Unexpected weight loss or gain: [...] Tablet ??? fluticasone propionate (FLONASE) 50 mcg/actuation [place], Suspension ??? Bifidobacterium infantis (ALIGN) 4 mg [...] Not on file Occupational History ??? 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 Smoking status: [...] Strain: ??? Difficulty of Paying Living Expenses: Not on file Food Insecurity: ??? Worried About Running Out of Food in the Last Year: Not on file ??? Ran Out of Food in the Last Year: Not on file Transportation Needs: ??? Lack of Transportation (Medical): Not on file ??? Lack of Transportation (Non-Medical): Not on file Physical Activity: ??? Days of Exercise per Week: Not on file ??? 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 [facility] Contact Permission:?? OK to leave message [...] syn; PHYSICAL EXAM VITAL SIGNS: Blood pressure 136/69, pulse 76, temperature 36.6 ??C (97.9 ??F), temperature source Temporal, resp. rate 20, height 176.4 cm (5' 9.45), weight 94.6 kg (208 lb 9.6 oz), SpO2 99 %. ECOG PS: 1 [...] CVA tenderness. Right leg on supporting brace; a firm 3-4mm subcutaneous nodule on Lt leg - SKIN: No rashes, bruises or petechiae. LYMPH:mal No palpable cervical/axillary/inguinal lymphadenopathy. NEUROLOGICAL: Alert and oriented to person, place and time; No focal neurological deficits; PSYCHIATRIC: normal affect and mood LABORATORY Recent Results (from the past 72 hour(s)) Lactate Dehydrogenase Result Value Ref Range LDH 252 (H) 110 - 220 unit/L Comprehensive metabolic panel (non-fasting) Result Value Ref Range Glucose Lvl 158 65 - 199 mg/dL BUN 21 (H) 8 - 18 mg/dL Creatinine 0.79 0.70 - 1.20 mg/dL Sodium 141 135 - 145 mmol/L Potassium 4.9 3.5 - 5.0 mmol/L Chloride 106 98 - 107 mmol/L CO2 23 22 - 31 mmol/L Anion Gap 12 5 - 15 mmol/L Calcium 10.2 8.5 - 10.5 mg/dL Total Protein 6.9 6.1 - 8.0 gm/dL Albumin 4.6 3.2 - 5.2 gm/dL AST 25 0 - 30 unit/L ALT 16 0 - 30 unit/L Alk Phos 61 35 - 105 unit/L Total Bilirubin 0.3 0.2 - 1.3 mg/dL Estimated GFR 75 >=60 mL/min/1.73 m?? Hemogram Result Value Ref Range WBC 78.9 (CRIT) 4.0 - 9.5 x10(3)/mcL RBC 4.88 4.00 - 5.21 x10(6)/mcL Hemoglobin 14.3 11.7 - 15.5 gm/dL Hematocrit 45.9 (H) 35.7 - 45.8 % MCV 94.1 82.6 - 94.4 fL MCH 29.3 27.1 - 32.0 pg MCHC 31.2 (L) 31.7 - 35.0 gm/dL Platelets 178 145 - 357 x10(3)/mcL RDWSD 46.7 (H) 37.0 - 46.0 fL RDWCV 13.8 11.5 - 14.1 % MPV 10.5 7.6 - 12.9 fL nRBC % Auto 0.0 % nRBC Abs Auto 0.000 0.000 - 0.000 x10(3)/mcL ASSESSMENT & PLANS: # Early stage CLL: Clinically Ms. Blanton remains asymptomatic. No palpable lymphadenopathy or HSM on exam (had CT a/p in 07/2017 showing mild splenomegaly and retroperitoneal and inguinal lymphadenopathy). I reviewed the labs with her from today: H&H and platelets are normal; ALC increased to ~73.8k on today's labs from 34.6k in Jun, 2019, a year ago. LDH remain slightly high ~ 230 for the past 2 years. As ALC is increasing rapidly with doubling time of 12 months,, we will monitor her closely, She still does not have any indication to initiate therapy. Reviewed these indications. . So, we will continue watch and wait approach. I will see her in c or sooner as needed. # Small 2-3mm nodule on leg : Reassured that it is not a LN. Most likely benign # Hypogammaglobulinemia: IgG normal in 06/2019. . [...] 03/06/2022 Office Visit Cardiology Lizeth Frazier MD [facility] Medical [facility] er Dr [place], [place] [address] (Wo rk) 03/18/2022 Office Visit Neurology Donovan Mayer MD [facility] NEUROLOGY DEPT. [place], [place] [address] (Wo rk) 04/24/2022 Appointment Hematology and Oncology 04/24/2022 Office Visit Hematology and Oncology Renea Navarro MD [facility] HEMATOLOGY/ONCOL OGY DEPT. [place], [place] [address] (Wo rk) documented as of this encounter Visit Diagnoses Diagnosis CLL (chronic lymphocytic leukemia) Chronic lymphoid leukemia, without menti on of having achieved remission documented in this encounter Care Teams Life Skills Instructor Relationship Specialty Start Date End Date Ingrid Espinosa APRN PCP - General Internal Medicine 07/28/17 [facility] [place] [address] [place] [address] documented as of this encounter
--- OUTSIDE RECORDS SUMMARY | 2021-12-21 00:33 | XMS_ITS | Encounter Summary ---
:1950 Author Organization [facility] [place] [address] Care Team Providers Name Role Phone Ingrid Espinosa Uriel PALACIOS Primary Care Provider Encounter Details Date Type Department Care Team Description 05/23/2021 Telephone [place]ology at [facility] [place] [address] Social History Tobacco Use Types Packs/Day Years [...] this encounter Miscellaneous Notes Telephone Encounter - Raz Beth - 05/23/2021 12:33 PM EST Inbound/Outbound: Outbound Spoke to Patient/Left Message: Left message Notes: Outbound call to patient to schedule motility lab testing from referral. ARM referral ok'd byEDS to schedule w/colitis.Left message asking for callback to schedule. Return calls can be handled by: [facility] Automobile Lights Assembler documented in this encounter Plan of Treatment Upcoming Encounters Date Type Specialty Care Team Description 03/06/2022 Office Visit Cardiology Lizeth Frazier MD [facility] [place], [place] [address] (Wo rk) 03/18/2022 Office Visit Neurology Donovan Mayer MD [facility] NEUROLOGY DEPT. [place], [place] [address] (Wo rk) 04/24/2022 Appointment Hematology and Oncology 04/24/2022 Office Visit Hematology and Oncology Renea Navarro MD [facility] HEMATOLOGY/ONCOL [place] DEPT. [place], [place] [address] (Wo rk) documented as of this encounter Visit Diagnoses Not on filedocumented in this encounter Care Teams Poultry Slaughterer Relationship Specialty Start Date End Date Ingrid Espinosa APRN PCP - General Internal Medicine 07/28/[address] [place] [address] documented as of this encounter
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
--- OUTSIDE RECORDS SUMMARY | 2021-12-21 00:33 | XMS_ITS | Encounter Summary ---
:1950 Author Organization [facility] Address [place] [address] Care Team Providers Name Role Phone Ingrid Espinosa APRN Primary Care Provider Encounter Details Date Type Department Care Team Description 08/01/2021 Hospital Encounter XRay at [facility] [place], Incontinence of feces, unspe cified fecal incontinence type; [address] Suri Orellana APRN Nausea without vomiting; [place], [place] [facility] Diarrhea, unspe cified type [id number] Center [phone] [place] [address] Social History Tobacco Use Types Packs/Day Years [...] 0 (FLONASE) 50 route daily as mcg/actuation [place], needed. Suspension Bifidobacterium infantis Take by mouth. [...] 03/06/2022 Office Visit Cardiology Lizeth Frazier MD [facility] er [place], [place] [address] (Wo rk) 03/18/2022 Office Visit Neurology Donovan Mayer MD [facility] NEUROLOGY DEPT. [place], [place] [address] (Wo rk) 04/24/2022 Appointment Hematology and Oncology 04/24/2022 Office Visit Hematology and Oncology Renea Navarro MD [facility] HEMATOLOGY/ONCOL OGY DEPT. [place], [place] [address] (Wo rk) documented as of this encounter Procedures Procedure Name Priority Date/Time Associated Diagnosis Comme nts XR FLUORO SMALL Routine 08/01/2021 1:46 PM Incontinence of Res ults for this BOWEL ONLY EDT feces, unspecified procedure are in fecal incontinence the resul ts type section. Nausea without vomiting Diarrhea, unspecified type documented in this encounter Results XR Fluoro Small Bowel [...] who have questions please contact the health rn home care that requested your imaging first. ? Narrative 08/01/2021 2:29 PM EDT EXAMINATION: XR FLUORO SMALL BOWEL ONLY CLINICAL HISTORY: nausea. SBFT ordered s pecifically to evaluate small intestinal transit time to cecum TECHNIQUE: Single contrast small bowel follow throu gh was performed and overhead and fluoroscopic spot films were obtained. Fluoro time: 0 COMPARISON: CT urogram dated 12/31/2019 FINDINGS: Manager Payroll image: Air fills normal caliber small and [...] 0 COMPARISON: CT urogram dated 12/31/2019 FINDINGS: Manager Payroll image: Air fills normal caliber small and [...] ho have questions please contact the health rn home care that requested your imaging first. Suri Newton DIGITAL PRINTER OPERATOR IMG FLUORO ORDERABLES documented in this encounter Visit Diagnoses Diagnosis Incontinence of feces, unspecified fecal incontinence type Nausea without vomiting Diarrhea, unspecified type documented in this encounter Care Teams Air Drier Relationship Specialty Start Date End Date Ingrid Espinosa APRN PCP - General Internal Medicine 07/28/17 [facility] [place] [address] [place] [address] documented as of this encounter
--- OUTSIDE RECORDS SUMMARY | 2021-12-21 00:34 | XMS_ITS | Encounter Summary ---
:1950 Author Organization [facility] [address] Care Team Providers Name Role Phone Ingrid Espinosa Uriel PALACIOS Primary Care Provider Encounter Details Date Type Department Care Team Description 09/23/2019 Telephone Hematology and Oncology at [facility], [place] [address] Social History Tobacco Use Types Packs/Day Years Used Date Never Smoker Smokeless Tobacco: Never Used Alcohol Use Standard Drinks/Week Comments No 0 (1 standard drink = 0.6 oz pure [...] this encounter Miscellaneous Notes Telephone Encounter - Minerva Carreon RN - 09/23/2019 1:07 PM EDT Message received from typing secretary: Injection/Infusion Referral Call placed to [facility] @ [phone] Spoke w/ ASSISTANT SITE MANAGER Services to be provided for pt are: CBC,CMP,LDH ~ 09/27/19 ASSISTANT SITE MANAGER confirmed they would provide services to pt. I SPOKE WITH PATIENT, SHE'S ALL SET. Pt orders faxed to [phone]. documented in this encounter Plan of Treatment Upcoming Encounters Date Type Specialty Care Team Description 03/06/2022 Office Visit Cardiology Lizeth Frazier MD [facility] er [place], [place] [address] (Wo rk) 03/18/2022 Office Visit Neurology Donovan Mayer MD [facility] NEUROLOGY DEPT. [place], [place] [address] (Wo rk) 04/24/2022 Appointment Hematology and Oncology 04/24/2022 Office Visit Hematology and Oncology Renea Navarro MD [facility] HEMATOLOGY/ONCOL CLAUDE DEPT. [place], [place] [address] (Wo rk) documented as of this encounter Visit Diagnoses Not on filedocumented in this encounter Care Teams Lathing Supervisor Relationship Specialty Start Date End Date Ingrid Espinosa APRN PCP - General Internal Medicine 07/28/[address] [place] [address] documented as of this encounter
--- OUTSIDE RECORDS SUMMARY | 2021-12-21 00:34 | XMS_ITS | Encounter Summary ---
:1950 Author Organization [facility] [place] [address] Care Team Providers Name Role Phone Ingrid Espinosa Uriel PALACIOS Primary Care Provider Reason for Referral Diagnostic Test (Routine) - Closed Specialty Diagnoses / Procedures Referred By Contact Refer red To Contact Cardiology Diagnoses Atrial fibrillation, unspecified type Young Rubalcava MD [facility] Non-Inv Card Lab Procedures Echocardiogram Transthoracic([facility]) [facility] CARDIOLOGY DEPT. [address] [address] Fax: Referral ID Status Reason Start Date Expiration Date Visits V isits Requested Authorized [id number] Closed Specialty 01/13/2020 07/10/2020 1 1 Service Requested Reason for Visit Diagnostic Test (Routine) - Closed Specialty Diagnoses / Procedures Referred By Contact Refer red To Contact Cardiology Diagnoses Atrial fibrillation, unspecified type Young Rubalcava MD [facility] Non-Inv Card Lab Procedures Echocardiogram Transthoracic([facility]) [facility] [place] [address] [place] [address] Fax: Referral ID Status Reason Start Date Expiration Date Visits V isits Requested Authorized [id number] Closed Specialty 01/13/2020 07/10/2020 1 1 Service Requested Encounter Details Date Type Department Care Team Description 01/19/2020 Hospital Encounter Non-Invasive Tyeparish Young Atrial fibrillation, Cardiology Lab Lizeth Rosario MD unspecified type [facility] [place]IOLOGY [place] [phone] Social History Tobacco Use Types Packs/Day Years Used Date Never Smoker Smokeless Tobacco: Never Used Alcohol Use Standard Drinks/Week Comments Yes 1 (1 standard drink = 0.6 oz pure [...] Sig Dispensed Refills Start Date End Date EPINEPHrine 0.3 mg/0.3 Inject 3 mLs into [...] 0 (FLONASE) 50 route daily as mcg/actuation [place], needed. Suspension Bifidobacterium infantis Take by mouth. 0 (ALIGN) 4 mg Capsule ezetimibe (ZETIA) 10 mg take 1 tablet by 0 2018 Tablet mouth once daily losartan (COZAAR) 100 mg Take 100 mg by mouth 0 Tablet daily. acetaminophen/diphenhydr Take 1 tablet by 0 [...] for maintenance desonide (DESOWEN) 0.05 Apply topically. Mix 30 g 2 % creamIndications: with Ketoconazole, Intertrigo under breasts, skin [...] 0 (SYNTHROID) 25 mcg mouth daily. tablet simvastatin (ZOCOR) 20 Take 20 mg by mouth. 0 12/13/2020 mg Tablet gabapentin (NEURONTIN) TAKE 1 CAPSULE 90 capsule 0 9 02/29/2020 300 mg Capsule NIGHTLY colestipol (COLESTID) 1 Take 1 tablet by 60 tablet 11 201806/13/2020 gram Tablet mouth 2 times daily. melatonin 3 mg Tablet Take by mouth. 0 06/13/2020 documented as of this encounter Plan of Treatment Upcoming Encounters Date Type Specialty Care Team Description 03/06/2022 Office Visit Cardiology Lizeth Frazier MD [facility] er [place] [address] (Amado quick) 03/18/2022 Office Visit Neurology Donovan Mayer MD [facility] ER NEUROLOGY DEPT. [place] [address] (Wo rk) 04/24/2022 Appointment Hematology and Oncology 04/24/2022 Office Visit Hematology and Oncology Renea Navarro MD [facility] er HEMATOLOGY/ONCOL CLAUDE DEPT. [place], [place] [address] (Wo rk) documented as of this encounter Procedures Procedure Name Priority Date/Time Associated Comments Diagnosis ECHOCARDIOGRAM COMPLETE Routine 01/19/2020 2:02 Atrial R esults for this PM EDT fibrillation, procedure are in unspecified type the results section. documented in this encounter Results ECHOCARDIOGRAM COMPLETE (01/19/2020 2:02 PM EDT) P athologist Signature EF 76 HEARTLAB SYSTEM Specimen (Source) Anatomical Location Collection Method / Collectio n Time Received Time / Laterality Volume 01/19/2020 Narrative HEARTLAB SYSTEM - 01/19/2020 2:45 PM EDT Procedure: ?Transthoracic Echocardiogram Patient: ?MADHURI TURCIOSDIA Omar ?(Age): 1950(69y) Med Rec#: ? [id number] ?Sex: ?F ? [place] ? [facility] [place]Ht / Wt: ??175(cm)/102(kg) Pt. Loc: ?Echo Lab ?BSA: ?2.17 Study Date: ?? 01/19/2020 ?Pt. Type: Outpatient Tape: ? Referring: [email or web address] Reading: Nahum Brown ([id number]) Pipe Bending Machine Operator: Kelin Ceja Interpreting Fellow: Maria G Ovalles ([id number]) Diagnosis: *Unspecified atrial fibrillation (I48.9 1) Rhythm: ? Sinus BP: ? 142/70 SUMMARY: 1. Study done in sinus rhythm. The left ventricular chamber size is normal. Left ventricular wall thickness is normal. There is normal global left ventricular systolic functio n with EF of 76% and no wall motion abnormalities. 2. The right ventricle is normal in size . Right ventricular global systolic function is normal. ?? 3. The left atrium is moderately dilated . The right atrium is mildly dilated. 4. There is no hemodynamically significa nt valve disease. 5. No prior echo available for compariso n. Findings ? : Study Quality: ? Adequate Left Ventricle: ? The left ventricul ar chamber size is normal. ?Left ventricular wall thickness is normal. ?There is no evidence of LVOT obstr uction. ?No ventricular septal defect is vi sualized. ?There is normal global left ventri cular systolic function. ?The quantitative left ventricular ejection fraction by biplane Espinosa's method is 76%. ?There are no left ventricular segm ental wall motion abnormalities. ?Assessment of diastolic function i s indeterminate. Left Atrium: ? The left atrium is mo derately dilated. ?No atrial septal defect is visuali zed. Right Ventricle: ? The right ventric le is normal in size. ?Right ventricular global systolic function is normal. ?Pulmonary artery hypertension coul d not be assessed due to inadequate tricuspid regurgitation jet. Right Atrium: ? The right atrium is mildly dilated.(22 cm2) Aortic Valve: ? The aortic valve is tricuspid. ?The aortic valve leaflets are mild ly thickened. ?Systolic excursion of the aortic v alve is normal. ?There is aortic annular calcificat ion. ?There is a trace of aortic regurgi tation present. Mitral Valve: ? The mitral valve irina ears normal in structure and function. ?There is no evidence of mitral esteban ve leaflet prolapse. ?There is trace mitral regurgitatio n present. Tricuspid Valve: ? The tricuspid esteban ve appears normal in structure and function. ?There is trace tricuspid regurgita tion present. Pulmonic Valve: ? The pulmonic valve appears normal in structure and function. Pericardium: ? The pericardium appea rs normal and there is no evidence of a pericardial effusion. Aorta: ? The aortic root is normal i n size. ?The ascending aorta was not well v isualized. ?There is no evidence of coarctatio n of the aorta. Pulmonary Artery: ? The main pulmona ry artery appears normal. Venous: ? The inferior vena cava irina ears dilated. ?There is a greater than 50% respir atory change in the inferior vena cava dimension. Misc: ? There is no hemodynamically significant valve disease. ?See remainder of report for additi onal findings. ?Two-dimensional echo, spectral Dop pler and color Doppler performed. Chambers 2D ?Value ?Units (Range) ? IVSd (2D) ? 1.05 ? cm ? LVPWd (2D) ?0.8 ?cm ? IVS:LVPW ratio (2D) 1.31 ? ratio ? RWT (2D) ?0.48 ? ratio ? RWT PW (2D) ? 0.41 ? ratio ? LVIDd (2D) ?3.87 ? cm ? LVIDs (2D) ?2.22 ? cm ? LVIDd (2D) index ?1.78 ? cm/m2 ? LVIDs (2D) index ?1.02 ? cm/m2 ? LV FS (2D) ?42.74 ?% ? EF Teichholz (2D) ?? 74.5 ? % ? Ao root diameter (2D3 ?cm (2.1 - 3.6) ? Volumes/Mass ?Value ?Units (Range) ? LA Area 4 CH ?25 ? cm2 (<21) ? LA ESV BP (A/L) inde47.41 ? ml/m2 ? RA AREA 4CH ? 22 ? cm2 ? LV ESV SP 4CH (MOD) 13.34 ? ml ? LV ESV SP 2CH (MOD) 21.69 ? ml ? LV EDV BP ? 71.64 ?ml ? LV ESV BP ? 17.29 ?ml ? LV EDV BP index ? 33.03 ?ml/m2 ? LV ESV BP index ? 7.97 ? ml/m2 ? BP EF (MOD) ? 75.86 ?% ? LV mass (2D) ?107.7 ?g ? LV mass (2D) index ??49.66 ?g/m2 ? Diastolic/Systolic Function ?Value ?Units (Range) ? MV E-wave Vmax ?0.8 ?m/sec ? MV deceleration wvmt690.45 ? m sec ? MV A-wave Vmax ?0.44 ? m/sec ? MV E:A ratio ?1.82 ? ratio ? LV septal e' Vmax ?? 0.07 ? m/sec ? LV lateral e' Vmax ??0.1 ?m/sec ? LV average e' Vmax ??0.09 ? m/sec ? LV E:e' septal ratio11.36 ? ratio ? LV E:e' lateral rati7.95 ? ratio ? LV average E:e' rati9.36 ? ratio ? Aortic Valve ?Value ?Units (Range) ? AV Vmax ? 1.92 ? m/sec ? AV VTI ?44.38 ?cm ? AV peak gradient ?14.74 ?mmHg ? AV mean gradient ?8.64 ? mmHg ? LVOT diameter ? 2.14 ? cm ? LVOT Vmax ? 1.24 ? m/sec ? LVOT VTI ?29.21 ?cm ? LVOT peak gradient ??6.18 ? mmHg ? LVOT mean gradient ??3.71 ? mmHg ? DOI (VTI) ? 0.66 ? ratio ? DOI (Vmax) ?0.65 ? ratio ? SV LVOT ? 104.81 ? ml ? CO LVOT ? 6.45 ? l/min ? Cardiac index ? 2.97 ? l/min/m2 ? MANOLO (continuity Vmax2.32 ? cm2 ? MANOLO (continuity Vmax1.07 ? cm2/m2 ? MANOLO (continuity VTI)2.36 ? cm ? MANOLO (continuity VTI)1.09 ? cm2/m2 ? Tricuspid Valve ?Value ?Units (Range) ? TR Vmax ? 2.73 ? m/sec ? TR peak gradient ?29.72 ?mmHg ? RAP ? 8 ?mmHg ? RVSP ?38 ? mmHg ? Wall Motion: Segment Name ?Rest ? Base-Anteroseptal ?? Normal ? Base-Anterior ? Normal ? Base-Anterolateral ??Normal ? Base-Posterolateral Normal ? Base-Inferior ? Normal ? Base-Inferoseptal ?? Normal ? Mid-Anteroseptal ?Normal ? Mid-Anterior ?Normal ? Mid-Anterolateral ?? Normal ? Mid-Posterolateral ??Normal ? Mid-Inferior ?Normal ? Mid-Inferoseptal ?Normal ? [place]-Septal ? Normal ? [place]-Anterior ? Normal ? [place]-Lateral ?Normal ? [place]-Inferior ? Normal ? [place]-Tip ?Normal ? This report has been electronically sign ed by: _ Nahum Brown M.D. ? 01/19/2020 14:44:50 Images reviewed and interpretation verif ied [facility] Cardiac Ultrasound Laboratory Procedure Note Nauhm Brown MD - 01/19/2020Formatti ng of this note might be different from the original. Procedure: Transthoracic Echocardiogram Patient: MADHURI Nelson (Age): 1949(69y) Med Rec#: [id number] Sex: F [place] [facility] [facility] Ht / Wt: 175(cm)/102(kg) Pt. Loc: Echo Lab BSA: 2.17 Study Date: 01/19/2020 Pt. Type: Outpati ent Tape: Referring: MALENKADAVIDJ Reading: Nahum Brown ([id number]) Pipe Bending Machine Operator: Kelin Ceja Interpreting Fellow: Maria G Ovalles ([id number]) Diagnosis: *Unspecified atrial fibrillation (I48.9 1) Rhythm: Sinus BP: 142/70 SUMMARY: 1. Study done in sinus rhythm. The left ventricular chamber size is normal. Left ventricular wall thickness is normal. There is normal global left ventricular systolic functio n with EF of 76% and no wall motion abnormalities. 2. The right ventricle is normal in size . Right ventricular global systolic function is normal. 3. The left atrium is moderately dilated . The right atrium is mildly dilated. 4. There is no hemodynamically significa nt valve disease. 5. No prior echo available for compariso n. Findings : Study Quality: Adequate Left Ventricle: The left ventricular omkar mber size is normal. Left ventricular wall thickness is norm al. There is no evidence of LVOT obstructio n. No ventricular septal defect is visuali zed. There is normal global left ventricular systolic function. The quantitative left ventricular eject ion fraction by biplane Espinosa's method is 76%. There are no left ventricular segmental wall motion abnormalities. Assessment of diastolic function is ind eterminate. Left Atrium: The left atrium is moderate ly dilated. No atrial septal defect is visualized. Right Ventricle: The right ventricle is normal in size. Right ventricular global systolic funct ion is normal. Pulmonary artery hypertension could not be assessed due to inadequate tricuspid regurgitation jet. Right Atrium: The right atrium is mildly dilated.(22 cm2) Aortic Valve: The aortic valve is tricus pid. The aortic valve leaflets are mildly th ickened. Systolic excursion of the aortic valve is normal. There is aortic annular calcification. There is a trace of aortic regurgitatio n present. Mitral Valve: The mitral valve appears n ormal in structure and function. There is no evidence of mitral valve le aflet prolapse. There is trace mitral regurgitation pre sent. Tricuspid Valve: The tricuspid valve irina ears normal in structure and function. There is trace tricuspid regurgitation present. Pulmonic Valve: The pulmonic valve appea rs normal in structure and function. Pericardium: The pericardium appears nor mal and there is no evidence of a pericardial effusion. Aorta: The aortic root is normal in size . The ascending aorta was not well visual ized. There is no evidence of coarctation of the aorta. Pulmonary Artery: The main pulmonary art minnie appears normal. Venous: The inferior vena cava appears d ilated. There is a greater than 50% respiratory change in the inferior vena cava dimension. Misc: There is no hemodynamically signif icant valve disease. See remainder of report for additional findings. Two-dimensional echo, spectral Doppler and color Doppler performed. Chambers 2D Value Units (Range) IVSd (2D) 1.05 cm LVPWd (2D) 0.8 cm IVS:LVPW ratio (2D) 1.31 ratio RWT (2D) 0.48 ratio RWT PW (2D) 0.41 ratio LVIDd (2D) 3.87 cm LVIDs (2D) 2.22 cm LVIDd (2D) index 1.78 cm/m2 LVIDs (2D) index 1.02 cm/m2 LV FS (2D) 42.74 % EF Teichholz (2D) 74.5 % Ao root diameter (2D3 cm (2.1 - 3.6) Volumes/Mass Value Units (Range) LA Area 4 CH 25 cm2 (<21) LA ESV BP (A/L) inde47.41 ml/m2 RA AREA 4CH 22 cm2 LV ESV SP 4CH (MOD) 13.34 ml LV ESV SP 2CH (MOD) 21.69 ml LV EDV BP 71.64 ml LV ESV BP 17.29 ml LV EDV BP index 33.03 ml/m2 LV ESV BP index 7.97 ml/m2 BP EF (MOD) 75.86 % LV mass (2D) 107.7 g LV mass (2D) index 49.66 g/m2 Diastolic/Systolic Function Value Units (Range) MV E-wave Vmax 0.8 m/sec MV deceleration xyce636.45 msec MV A-wave Vmax 0.44 m/sec MV E:A ratio 1.82 ratio LV septal e' Vmax 0.07 m/sec LV lateral e' Vmax 0.1 m/sec LV average e' Vmax 0.09 m/sec LV E:e' septal ratio11.36 ratio LV E:e' lateral rati7.95 ratio LV average E:e' rati9.36 ratio Aortic Valve Value Units (Range) AV Vmax 1.92 m/sec AV VTI 44.38 cm AV peak gradient 14.74 mmHg AV mean gradient 8.64 mmHg LVOT diameter 2.14 cm LVOT Vmax 1.24 m/sec LVOT VTI 29.21 cm LVOT peak gradient 6.18 mmHg LVOT mean gradient 3.71 mmHg DOI (VTI) 0.66 ratio DOI (Vmax) 0.65 ratio SV LVOT 104.81 ml CO LVOT 6.45 l/min Cardiac index 2.97 l/min/m2 MANOLO (continuity Vmax2.32 cm2 MANOLO (continuity Vmax1.07 cm2/m2 MANOLO (continuity VTI)2.36 cm MANOLO (continuity VTI)1.09 cm2/m2 Tricuspid Valve Value Units (Range) TR Vmax 2.73 m/sec TR peak gradient 29.72 mmHg RAP 8 mmHg RVSP 38 mmHg Wall Motion: Segment Name Rest Base-Anteroseptal Normal Base-Anterior Normal Base-Anterolateral Normal Base-Posterolateral Normal Base-Inferior Normal Base-Inferoseptal Normal Mid-Anteroseptal Normal Mid-Anterior Normal Mid-Anterolateral Normal Mid-Posterolateral Normal Mid-Inferior Normal Mid-Inferoseptal Normal [place]-Septal Normal [place]-Anterior Normal [place]-Lateral Normal [place]-Inferior Normal [place]-Tip Normal This report has been electronically sign ed by: _ Nahum Brown M.D. 01/19/2020 14:44 :50 Images reviewed and interpretation baljeet kong [facility] Cardiac Ultrasound Laboratory Young Rubalcava MD ECHO ORDERABLES Performing Organization Address City/State/ZIP Code Phon e Number HEARTLAB SYSTEM documented in this encounter Visit Diagnoses Diagnosis Atrial fibrillation, unspecified type documented in this encounter Care Teams Clinical Mental Health Counselor Relationship Specialty Start Date End Date Ingrid Espinosa APRN PCP - General Internal Medicine 07/28/[address] [place] [address] documented as of this encounter
--- OUTSIDE RECORDS SUMMARY | 2021-12-21 00:34 | XMS_ITS | Encounter Summary ---
:1950 Author Organization [facility] [place] [address] Care Team Providers Name Role Phone Francisca, Ingridcresencio Trevino APRN Primary Care Provider Encounter Details Date Type Department Care Team Description 11/29/2019 Telephone Card[place] [facility] Gabriella Atkinson APRN [facility] [place] [address] [place] [address] [phone] (Wo rk) Social History Tobacco Use Types [...] this encounter Miscellaneous Notes Telephone Encounter - Gabriella Atkinson APRN - 11/29/2019 11:52 AM EDT 11/29/2019 Saundra Blanton Initial Contact Date: 11/29/2019 Initial contact time: 11:15 am Referring Provider: Robin Martin DNP Patient Location: [facility] Past Medical History: CLL Hypothyroidism HLD No cardiac history Presenting Symptoms per OSH: Patient had a few alcoholic beverages yesterday and woke up this morning feeling very weak. Was brought to ED via EMS and was found to be in a-fib with controlled HRs in the 70s. She denied chest pain.Her troponin is negative. She is not on any home medications. Pertinent Diagnostic Findings: EKG: HR 70-90s, a-fib (possibly aflutter) Vitals: HR 75, BP 151/82, spO2 96% on RA, afebrile Troponin trend negative OSH Interventions: Aspirin Plan/Discussion: Robin Martin DNP requested a consultation to discuss management of the patient's new onset a-fib (rate controlled at this time). I agreed that metoprolol tartrate 12.5mg bid would be reasonable, and that given her [id number] score of 2 (age, female), anticoagulation is indicated with a discussion with the patient regarding risks/benefits. I also recommended discharging her with a Ziopatch, if possible, and close follow up in the coming days with her PCP. - above recommendations were based on my discussion with Robin Martin DNP; I have not personally interviewed or examined this patient. ABRAHAM Wilburn, PREDATORY ANIMAL EXTERMINATOR-BC, [employer] [facility] Cardiovascular Medicine documented in this encounter Plan of Treatment Upcoming Encounters Date Type Specialty Care Team Description 03/06/2022 Office Visit Cardiology Lizeth Frazier MD [facility] [address] [place] [address] (Amado quick) 03/18/2022 Office Visit Neurology Donovan Mayer MD [facility] NEUROLOGY DEPT. [place], [place] [address] (Wo ynes) 04/24/2022 Appointment Hematology and Oncology 04/24/2022 Office Visit Hematology and Oncology Renea Navarro MD [facility] HEMATOLOGY/ONCOL CLAUDE DEPT. [place], [place] [address] (Wo rk) documented as of this encounter Visit Diagnoses Not on filedocumented in this encounter Care Teams Group Rooms Coordinator Relationship Specialty Start Date End Date Ingrid Espinosa APRN PCP - General Internal Medicine 07/28/[address] [place] [address] documented as of this encounter
--- OUTSIDE RECORDS SUMMARY | 2021-12-21 00:34 | XMS_ITS | Encounter Summary ---
:1950 Author Organization [facility] [place] [address] Care Team Providers Name Role Phone Ingrid Espinosa Uriel PALACIOS Primary Care Provider Encounter Details Date Type Department Care Team Description 11/29/2019 External Results Transfer Center Gabriella Atkinson, [facility] [place] [address] [facility] [phone] [place], [place] [address] (Wo rk) Social History Tobacco [...] 03/06/2022 Office Visit Cardiology Lizeth Frazier MD [facility] [place] [address] (Wo rk) 03/18/2022 Office Visit Neurology Donovan Mayer MD [facility] ER NEUROLOGY DEPT. [place], [place] [address] (Wo rk) 04/24/2022 Appointment Hematology and Oncology 04/24/2022 Office Visit Hematology and Oncology Renea Navarro MD [facility] HEMATOLOGY/ONCOL OGY DEPT. [place], [place] [address] (Wo rk) documented as of this encounter Procedures Procedure Name Priority Date/Time Associated Diagnosis Comme nts ECG SCAN Routine 11/29/2019 Results for thi s procedure are in the resu lts section. documented in this encounter Results Scan Doc: ECG (11/29/2019) Narrative This result has an attachment that is no t available. Gabriella T Demetrio [employer]SET FITTER MEDIA MGR SCAN EXT ORDR/RSLT documented in this encounter Visit Diagnoses Not on filedocumented in this encounter Care Teams Director Global Market Research Relationship Specialty Start Date End Date Ingrid Espinosa APRN PCP - General Internal Medicine 07/28/[address] [place] [address] documented as of this encounter
--- OUTSIDE RECORDS SUMMARY | 2021-12-21 00:34 | XMS_ITS | Encounter Summary ---
:1950 Author Organization [facility] [place] [address] Care Team Providers Name Role Phone Guillermina Espinosacresencio Trevino APRN Primary Care Provider Reason for Visit Reason Onset Date Comments Referral 12/31/2019 Encounter Details Date Type Department Care Team Description 12/31/2019 Telephone Cardiology at [facility] Bina Gavin, contour grinder [address] [place] [address] Social History Tobacco Use Types Packs/Day Years [...] this encounter Miscellaneous Notes Telephone Encounter - Bina Gavin, RN - 12/31/2019 2:51 PM EDTSummary: Saundra is referred to cardiology in [place] for a second opinion Called Saundra to inquire if the referral to this clinic after she had seen the [address] [place] [address] provider in November was duplicate and unnecessary. Saundra clarified that this second referral is for a cardiology second opinion documented in this encounter Plan of Treatment Upcoming Encounters Date Type Specialty Care Team Description 03/06/2022 Office Visit Cardiology Lizeth Frazier MD [facility] er [place], [place] [address] (Wo rk) 03/18/2022 Office Visit Neurology Donovan Mayer MD [facility] ER NEUROLOGY DEPT. [place], [place] [address] (Wo rk) 04/24/2022 Appointment Hematology and Oncology 04/24/2022 Office Visit Hematology and Oncology Renea Navarro MD [facility] HEMATOLOGY/ONCOL CLAUDE DEPT. [place], [place] [address] (Wo rk) documented as of this encounter Visit Diagnoses Not on filedocumented in this encounter Care Teams Assistant Sales Center Manager Relationship Specialty Start Date End Date Ingrid Espinosa APRN PCP - General Internal Medicine 07/28/[address] [place] [address] documented as of this encounter
--- OUTSIDE RECORDS SUMMARY | 2021-12-21 00:34 | XMS_ITS | Encounter Summary ---
:1950 Author Organization [facility] 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 cetirizine (ZyrTEC) 10 Take 10 mg by mouth 0 mg Tablet daily. fluticasone propionate 1 spray by Each Nare 0 (FLONASE) 50 route daily as mcg/actuation [place], needed. Suspension Bifidobacterium infantis Take by mouth. [...] 0 tablet mouth daily. OXYGEN-AIR DELIVERY by [facility].(Non-Drug; 0 SYSTEMS (HORIZON NASAL Combo Route) route CPAP SYSTEM MISC) nightly. levothyroxine Take 37.5 mcg by 0 (SYNTHROID) 25 mcg mouth daily. tablet metoprolol tartrate Take 25 mg by mouth 0 020 12/14/2019 (Lopressor) 25 mg Tablet daily. simvastatin (ZOCOR) 20 Take 20 mg by mouth. 0 12/13/2020 mg Tablet ranitidine (ZANTAC) 150 Take 150 mg by mouth 0 01/12/2020 mg Tablet 2 times daily. gabapentin (NEURONTIN) TAKE 1 CAPSULE 90 capsule 0 9 02/29/2020 300 mg Capsule NIGHTLY colestipol (COLESTID) 1 Take 1 tablet by 60 tablet 11 201806/13/2020 gram Tablet mouth 2 times daily. melatonin 3 mg Tablet Take by mouth. 0 06/13/2020 documented as of this encounter Plan of Treatment Upcoming Encounters Date Type Specialty Care Team Description 03/06/2022 Office Visit Cardiology Lizeth Frazier MD [facility] [address] [place], [place] [address] (Wo rk) 03/18/2022 Office Visit Neurology Donovan Mayer MD [facility] NEUROLOGY DEPT. [place], [place] [address] (Wo rk) 04/24/2022 Appointment Hematology and Oncology 04/24/2022 Office Visit Hematology and Oncology Renea Navarro MD [facility] HEMATOLOGY/ONCOL CALIY DEPT. [place], [place] [address] (Wo rk) documented as of this encounter Procedures Procedure Name Priority Date/Time Associated Diagnosis Comme [facility] US RETROPERITONEAL Routine 12/13/2019 1:56 Angiomyolipoma of R esults for this COMPLETE PM EDT both kidneys procedure are i n the results section. documented in this encounter Results US Retroperitoneal Complete (12/13/2019 1:56 PM EDT) Anatomical Region Laterality Modality Abdomen Ultrasound Specimen (Source) Anatomical Collection Method Collection Time Re ceived Time Location / / Volume Laterality 12/13/2019 1:43 PM EDT Impressions 12/13/2019 2:55 PM EDT 1. ??On the RIGHT, what is previously b een called 2 separate angiomyolipomas, I believe is a single angiomyolipoma with both intra and extrarenal components. This is confirmed on the patient's CT f rom 2018. Together these measure 5.0 x 3.6 x 3.1 cm, compared to 3.3 x 2.7 x 2 .4 cm in 2018. Comparison with the patient's last ultrasound is limited du e to technical differences 2. ??Slight interval increase in the 2 small LEFT renal angiomyolipomas, the largest is in the lower pole measures 2 .6 cm 3. ??No hydronephrosis or hydroureter. I have personally reviewed the image(s) and the resident's interpretation and agree with the findings, Magda Soliz at 12/13/2019 2:48 PM Thank you for letting us participate in the care of this patient. For questions regarding this report, please contact t marcus number below. 2: 48 PM ? Magda Soliz, Staff Physician Electronically Signed Final Report ?? 02:54 pm Narrative 12/13/2019 2:55 PM EDT Renal ? (Signed Final 12/13/2019 02:54 pm) PATIENT INFO: ID #: ? [id number] ?: ??[birth year] (69 yrs)(F) Name: ? SAUNDRA APPLEEY ? Visit Date: 12/13/2019 01:43 pm PERFORMED BY: Performed By: ? Dora Arias RDMS Attending: ?Magda Soliz MD Referred By: ?LISSY DU Location: ? [place] SERVICE(S) PROVIDED: ??URETRO - Retroperitoneal Complete - I [id number] ? [id number] INDICATIONS: ??bilateral angiomyolipomas. RIGHT KIDNEY: Size (cm) ?L: ??11.1 Cortical Thickness: ?Normal Cortical Echogenicity: ?? Normal Hydronephrosis: ?No sonogr aphic evidence -------- Lesions: -------- ??# ?Date ?Location ?Description ?L ? AP ? TV (cm) ??1 ?12/13/19 ?Lower pole ? Angiomyolipo ?1.3 ?1.4 ? 1.5 ? ma ??1 ?08/07/15 ?Medial/ ? Angiomyolipo ?1.1 ?1.1 ? 1.2 ? Inferior ?ma ??1 ?07/11/14 ?Mid/Lower ? Angiomyolipo ?1.7 ?1.2 ? 2.4 ? Pole ?ma ??1 ?03/09/13 ?MID/Lower ? Angiomyolipo ?2.3 ?1.7 ? 2.0 ? Pole ?ma ? Lateral ??1 ?15/12 ?Lower pole ? Angiomyolipo ?1.2 ?1.6 ? 2.0 ? lateral ? ma ??# ?Date ?Location ?Description ?L ? AP ? TV (cm) ??1 ?10/30/ ?Lower pole ? Angiomyolipo ?1.1 ?1.2 ? 1.1 ? ma ??2 ?12/12/20 ?Mid Lateral ?? A ngiomyolipo ?5.0 ?2.6 ? 3.7 ? ma ??2 ?//18 ?Lower pole ? Angiomyolipo ?1.2 ?1.2 ? 1.0 ? ma ??2 ?//16 ?Mid / ? Angiomyolipo ?0.5 ?0.5 ? 0.3 ? Inferior ?ma ??2 ?07/11/15 ?Mid pole ?Angiomyolipo ?0.7 ?0.5 ? 5.0 ? ma ??2 ?03/09/13 ?Lower pole ? Angiomyolipo ?0.5 ?0.7 ? 0.6 ? ma ??2 ?03/02/12 ?Lower pole ? Angiomyolipo ?0.4 ?0.2 ? 0.5 ? ma ??2 ?10/30/09 ?Lower pole ? Angiomyolipo ?0.4 ?0.5 ? 0.3 ? ma ??3 ?07/11/14 ?Mid pole ?Angiomyolipo ?0.5 ?0.4 ? 0.5 ? ma LEFT KIDNEY: Size (cm) ?L: ??11.6 Cortical Thickness: ?Normal Cortical Echogenicity: ?? Normal Hydronephrosis: ?No sonogr aphic evidence -------- Lesions: -------- ??# ?Date ?Location ?Description ?L ? AP ? TV (cm) ??1 ?12/12/ ?Upper pole ? Angiomyolipo ?1.7 ?1.6 ? 1.7 ? ma ??1 ?07/28/18 ?Upper pole ? Angiomyolipo ?1.6 ?1.0 ? 1.5 ? ma ??1 ?08/06/16 ?Upper pole ? Angiomyolipo ?1.4 ?1.7 ? 1.8 ? ma ??1 ?07/11/15 ?Upper pole ? Angiomyolipo ?1.8 ?1.6 ? 1.6 ? ma ??1 ?//13 ?Upper pole ? Angiomyolipo ?1.4 ?1.8 ? 1.4 ? ma ??1 ?10/15/12 ?Upper pole ? Angiomyolipo ?1.6 ?1.2 ? 1.4 ? ma ??1 ?06/14/10 ?Upper pole ? Angiomyolipo ?2.4 ?1.6 ? 1.4 ? ma ??2 ?07/27/20 ?Lower pole ? Angiomyolipo ?2.6 ?1.5 ? 1.7 ? ma ??2 ?03/12/18 ?Lower pole ? Angiomyolipo ?2.5 ?1.3 ? 1.4 ? ma ??2 ?03/21/16 ?Lower pole ? Angiomyolipo ?1.8 ?1.6 ? 1.5 ? ma ??2 ?02/23/15 ?Lower pole ? Angiomyolipo ?1.7 ?1.5 ? 1.6 ? ma ??2 ?10/22/13 ?Lower pole ? Angiomyolipo ?1.9 ?1.5 ? 1.6 ? ma ??# ?Date ?Location ?Description ?L ? AP ? TV (cm) ??2 ?03/02/12 ?Lower pole ? Angiomyolipo ?2.6 ?1.4 ? 1.5 ? ma ??2 ?10/30/09 ?Lower pole ? Angiomyolipo ?1.7 ?1.3 ? 1.4 ? ma URINARY BLADDER: Pre-void (cm) ? L: ??3.2 ? A P: ??3.6 ? TV: ??6.7 Vol (ml): ?40.4 Comment: ?Partially distended, norm al contour Procedure Note Magda Soliz MD - 12/13/2019Formattin g of this note might be different from the original. Renal (Signed Final 12/13/2019 02:54 pm ) PATIENT INFO: ID #: [id number] : [birth year] (69 y rs)(F) Name: SAUNDRA DHALIWAL Visit Date: 2019 01:43 pm PERFORMED BY: Performed By: Dora Arias RDMS Attending: Magda Soliz MD Referred By: LISSY DU Location: [place] SERVICE(S) PROVIDED: URETRO - Retroperitoneal Complete - [facility] [id number] INDICATIONS: bilateral angiomyolipomas. RIGHT KIDNEY: Size (cm) L: 11.1 Cortical Thickness: Normal Cortical Echogenicity: Normal Hydronephrosis: [...] pole Angiomyolipo 1.2 1.6 2.0 lateral ma # Date Location Description L AP TV (cm ) 1 10/30/09 Lower pole Angiomyolipo 1.1 1.2 1.1 ma 2 12/13/19 Mid Lateral Angiomyolipo 5.0 [...] 0.5 ma LEFT KIDNEY: Size (cm) L: 11.6 Cortical Thickness: Normal Cortical Echogenicity: Normal Hydronephrosis: No sonographic evidence -------- Lesions: -------- # Date Location Description L AP TV (cm ) 1 12/13/19 Upper pole Angiomyolipo 1.7 1.6 1.7 ma 1 07/28/17 Upper pole Angiomyolipo 1.6 1.0 1.5 ma 1 08/07/15 Upper pole Angiomyolipo 1.4 1.7 1.8 ma 1 07/11/14 Upper pole Angiomyolipo 1.8 1.6 1.6 ma 1 03/09/13 Upper pole Angiomyolipo 1.4 1.8 1.4 ma 1 03/02/12 Upper pole Angiomyolipo 1.6 1.2 1.4 ma 1 10/30/09 Upper pole Angiomyolipo 2.4 1.6 1.4 ma 2 12/13/19 Lower pole Angiomyolipo 2.6 1.5 1.7 ma 2 07/28/17 Lower pole Angiomyolipo 2.5 1.3 1.4 ma 2 08/07/15 Lower pole Angiomyolipo 1.8 1.6 1.5 ma 2 07/11/14 Lower pole Angiomyolipo 1.7 1.5 1.6 ma 2 03/09/13 Lower pole Angiomyolipo 1.9 1.5 1.6 ma # Date Location Description L AP TV (cm ) 2 03/02/12 Lower pole Angiomyolipo 2.6 1.4 1.5 ma 2 10/30/09 Lower pole Angiomyolipo 1.7 1.3 1.4 ma URINARY BLADDER: Pre-void (cm) L: 3.2 AP: 3.6 TV: 6.7 Vol (ml): 40.4 Comment: Partially distended, normal co ntour IMPRESSION 1. On the RIGHT, what is previously bee n called 2 separate angiomyolipomas, I believe is a single angiomyolipoma with both intra and extrarenal components. This is confirmed on the patient's CT f rom 2018. Together these measure 5.0 x 3.6 x 3.1 cm, compared to 3.3 x 2.7 x 2 .4 cm in 2018. Comparison with the patient's last ultrasound is limited du e to technical differences 2. Slight interval increase in the 2 sm all LEFT renal angiomyolipomas, the largest is in the lower pole measures 2 .6 cm 3. No hydronephrosis or hydroureter. I have personally reviewed the image(s) and the resident's interpretation and agree with the findings, Magda Soliz at 12/13/2019 2:48 PM Thank you for letting us participate in the care of this patient. For questions regarding this report, please contact t marcus number below. 2: 48 PM Magda Soliz, Staff Physician Electronically Signed Final Report 12/12 02:54 pm Lissy Du MD [facility] GEN ORDERABLES documented in this encounter Visit Diagnoses Diagnosis Angiomyolipoma of both kidneys documented in this encounter Care Teams Manager Payroll Relationship Specialty Start Date End Date Ingrid Espinosa APRN PCP - General Internal Medicine 07/28/17 [address] [place] [address] documented as of this encounter
--- OUTSIDE RECORDS SUMMARY | 2021-12-21 00:34 | XMS_ITS | Encounter Summary ---
:1950 Author Organization [facility] [place] [address] Care Team Providers Name Role Phone Ingrid Espinosa Uriel PALACIOS Primary Care Provider Encounter Details Date Type Department Care Team Description 07/05/2019 Ancillary Procedure Radiology XRay at [facility] P ain of right hip the [facility] [address] [place] [id number] [phone] Social History Tobacco Use Types Packs/Day Years [...] 03/06/2022 Office Visit Cardiology Lizeth Frazier MD [facility] [address] [place], [place] [address] (Wo rk) 03/18/2022 Office Visit Neurology Donovan Mayer MD [facility] ER NEUROLOGY DEPT. [place], [place] [address] (Wo rk) 04/24/2022 Appointment Hematology and Oncology 04/24/2022 Office Visit Hematology and Oncology Renea Navarro MD [facility] HEMATOLOGY/ONCOL OGY DEPT. [place], [place] [address] (Wo rk) documented as of this encounter Procedures Procedure Name Priority Date/Time Associated Diagnosis Comme nts XR PELVIS AND HIP 2 Routine 07/05/2019 2:28 PM Pain of right h ip Results for this VIEWS RIGHT EST joint procedure are i n the results section. documented in this encounter Results XR Pelvis and Hip 2 Views Right (07/05/2019 2:28 PM EST) Anatomical Region Laterality Modality Pelvis, Hip Right Digital Radiography Specimen (Source) Anatomical Location Collection Method / Collectio n Time Received Time / Laterality Volume Impressions 07/05/2019 2:37 PM EST Moderate arthropathy of the right hip. Thank you for letting us participate in the care of this patient. For questions regarding this report, please contact e number below. ? Narrative 07/05/2019 2:37 PM EST EXAMINATION: XR PELVIS AND HIP 2 VIEWS RIGHT CLINICAL HISTORY: assess hip pain ap pelvis frogleg and lateral TECHNIQUE: A frontal radiograph of the pelvis was o btained, along with AP and frog-leg lateral views of the right hip. COMPARISON: None FINDINGS: There is moderate narrowing of the centr al joint space of the right hip. Subchondral sclerosis and cysts on both sides of the joint. Large collar osteophytes. The degree of arthropathy i n the left hip. The sacroiliac joints are symmetric. Procedure Note Josefina Plasencia MD - 07/05/2019Formatt ing of this note might be different from the original. EXAMINATION: XR PELVIS AND HIP 2 VIEWS R IGHT CLINICAL HISTORY: assess hip pain ap pelvis frogleg and lateral TECHNIQUE: A frontal radiograph of the pelvis was o btained, along with AP and frog-leg lateral views of the right hip. COMPARISON: None FINDINGS: There is moderate narrowing of the centr al joint space of the right hip. Subchondral sclerosis and cysts on both sides of the joint. Large collar osteophytes. The degree of arthropathy i n the left hip. The sacroiliac joints are symmetric. IMPRESSION Moderate arthropathy of the right hip. Thank you for letting us participate in the care of this patient. For questions regarding this report, please contact e number below. Electronically signed by: Josefina Plasencia [facility] ([phone]), at 07/05/2019 2:37 PM [facility] MD IMG DX ORDERABLES documented in this encounter Visit Diagnoses Diagnosis Pain of right hip joint documented in this encounter Care Teams Banquet Attendant Relationship Specialty Start Date End Date Ingrid Espinosa APRN PCP - General Internal Medicine 07/28/[address] [place] [address] documented as of this encounter
--- OUTSIDE RECORDS SUMMARY | 2021-12-21 00:34 | XMS_ITS | Encounter Summary ---
:1950 Author Organization [facility] [place] [address] Care Team Providers Name Role Phone Ingrid Espinosa SUZANNE Primary Care Provider Encounter Details Date Type Department Care Team Description 12/31/2019 Laboratory Appointment Lab [address] [place] [address] Social History Tobacco Use Types Packs/Day [...] 03/06/2022 Office Visit Cardiology Lizeth Frazier MD [facility] er Dr [place] [address] (Wo rk) 03/18/2022 Office Visit Neurology Donovan Mayer MD [facility] NEUROLOGY DEPT. [place], [place] [address] (Wo rk) 04/24/2022 Appointment Hematology and Oncology 04/24/2022 Office Visit Hematology and Oncology Renea Navarro MD [facility] er HEMATOLOGY/ONCOL CLAUDE DEPT. [place], [place] [address] (Wo rk) documented as of this encounter Procedures Procedure Name Priority Date/Time Associated Diagnosis Comme nts HC CREATININE Routine 12/31/2019 11:02 AM Microhematuria Resul ts for this EDT procedure are i n the results section . documented in this encounter Results Creatinine (12/31/2019 11:02 AM EDT) athologist Signature Creat[facility] 0.71 0.70 [facility] 1[facility]/dL [facility] Estimated GFR 86 >=60 [facility] mL/min/1.7 [facility] 3 m?? HOSPITAL LABORATORY Comment: The eGFR was calculated using the CKD-EP I equation. As with all creatinine based estimates of kidney function, eGFR values calculated with the CKD-EPI equation are not accurate in patients wi th acute kidney failure, extremes of body mass or the acutely ill. http://[employer] eGFR 100 >=60 mL/min/1.73 m?? [facility] Comment: The eGFR was calculated using the CKD-EP I equation. As with all creatinine based estimates of kidney function, eGFR values calculated with the CKD-EPI equation are not accurate in patients wi th acute kidney failure, extremes of body mass or the acutely ill. http://e[employer]ruction [employer]/[facility] TULSAnkf Specimen Anatomical Collection Method Collection Time Receive d Time (Source) Location / / Volume Laterality Blood specimen 12/31/2019 11:02 0 (specimen) AM EDT 11:10 AM EDT Resulting Agency Comment Spec In Lab Maria D Bravo APRN CHEMISTRY ORDERABLES Performing Organization Address City/State/[place] [address] documented in this encounter Visit Diagnoses Diagnosis Microhematuria Microscopic hematuria documented in this encounter Care Teams Shift Boss Relationship Specialty Start Date End Date Ingrid Espinosa, SUZANNE PCP - General Internal Medicine 07/28/[address] [place] [address] documented as of this encounter
--- OUTSIDE RECORDS SUMMARY | 2021-12-21 00:34 | XMS_ITS | Encounter Summary ---
:1950 Author Organization [place] [address] Care Team Providers Name Role Phone Ingrid Espinosa LOG SAWYER Primary Care Provider Encounter Details Date Type Department Care Team Description 02/15/2020 Ancillary Procedure [facility] [address] [place] [id number] [phone] (Wo rk) Social History Tobacco Use Types [...] 03/06/2022 Office Visit Cardiology Lizeth Frazier MD [facility] [address] [place], [place] [address] (Wo rk) 03/18/2022 Office Visit Neurology Donovan Mayer MD [facility] ER NEUROLOGY DEPT. [place], [place] [address] (Wo rk) 04/24/2022 Appointment Hematology and Oncology 04/24/2022 Office Visit Hematology and Oncology Renea Navarro MD [facility] HEMATOLOGY/ONCOL OGY DEPT. [place], [place] [address] (Wo rk) documented as of this encounter Procedures Procedure Name Priority Date/Time Associated Diagnosis Comme nts FILM LIBRARY Routine 02/15/2020 12:00 AM Results for this STORAGE ONLY MAMMO EDT procedure are in the results section. documented in this encounter Results Film Library- Storage Only Mammo (02/15/2020 12:00 AM EDT) Specimen (Source) Anatomical Location Collection Method / Collectio n Time Received Time / Laterality Volume Narrative [facility] - 07/14/2020 4:38 PM EST This exam is auto-finalizing. It's purpo se is for storage only. Ingrid Espinosa APRN IMG FILM LIBRARY ORDERABLES Performing Organization Address City/State/ZIP Code Phon e Number [place], [place] documented in this encounter Visit Diagnoses Not on filedocumented in this encounter Care Teams Supervisor Rides Relationship Specialty Start Date End Date Ingrid Espinosa APRN PCP - General Internal Medicine 07/28/[address] [place] [address] documented as of this encounter
--- OUTSIDE RECORDS SUMMARY | 2021-12-21 00:34 | XMS_ITS | Encounter Summary ---
:1950 Author Organization [facility] [place] [address] Care Team Providers Name Role Phone Ingrid Espinosa Uriel PALACIOS Primary Care Provider Reason for Visit Reason Comments Skin Check Encounter Details Date Type Department Care Team Description 12/13/2019 Office Visit Dermatology at [facility] Suri Reid History of dysplastic nevus; Petey Orellana MD Multiple benign nevi; [address] [facility] Angiokeratomas; [place] [address] Seborrheic keratoses; [phone] [facility] Schreiber angiomas ; RD-DERMATOLOGY Lentigines; [place], [place] [address] Seborrheic keratosis, inflamed Social History Tobacco Use Types Packs/Day Years [...] documented as of this encounter Progress Notes Suri Reid MD - 12/13/2019 9:20 AM EDT DERMATOLOGY OUTPATIENT CLINIC NOTE Date of service: 12/13/2019 Saundra Blanton : 1950 Provider: Suri Reid MD PROBLEM: Skin check SKIN HISTORY: - Okay to leave detailed message with results? Yes ?? 03/03/2018: Left lateral thigh, severely atypical dysplastic nevus (excised, 06/16/2018) 05/23/2010: Left vertex of scalp, hemangioma (shave biopsy) HPI Saundra Blanton is a 69 y.o. year old female. Established patient last seen by Haydee COPPOLA on 09/09/2018. Patient presents to clinic today for the following concerns: - bleeding lesion that patient reports appearing this week - no other concerns. Family History: Melanoma: None ?? Relevant Social History: - Lives in [place], [place] ADR: Allergies Allergen Reactions ??? Latex Rash and Other (See Comments) Red welts ??? Sulfa (Sulfonamide Antibiotics) Rash ??? Codeine Other (See Comments) Bad dreams ??? Adhesive Tape-Silicones Rash ??? Gluten ??? Hydrocodone-Acetaminophen Other (See Comments) Mental Status Changes ??? Lactose fodmap diet ??? Penicillins CURRENT MEDICATIONS: Current Outpatient Medications Medication Sig Dispense Refill ??? cetirizine (ZyrTEC) 10 mg Tablet Take 10 mg by mouth daily. ??? simvastatin (ZOCOR) 20 mg Tablet Take 20 mg by mouth. ??? fluticasone propionate (FLONASE) 50 mcg/actuation [place], Suspension ??? ranitidine (ZANTAC) 150 mg Tablet Take 150 mg by mouth 2 times daily. ??? Bifidobacterium infantis (ALIGN) 4 mg Capsule Take by mouth. ??? gabapentin (NEURONTIN) 300 mg Capsule TAKE 1 CAPSULE NIGHTLY 90 capsule 0 ??? ezetimibe (ZETIA) 10 mg Tablet take [...] SYSTEMS (HORIZON NASAL CPAP SYSTEM MISC) by [facility].(Non- Drug; Combo Route) route nightly. ??? levothyroxine (SYNTHROID) 25 mcg tablet Take 37.5 mcg by mouth daily. No current facility-administered medications for this visit. PROBLEM LIST: Patient Active Problem List Diagnosis Code ??? CIS - Tinea pedis ??? Lumbar radiculopathy M54.16 ??? 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 Migraine G43.909 ??? Hypothyroid E03.9 ??? Sleep apnea G47.30 ??? Benign renal tumor D30.00 ??? Depression F32.9 ??? Hypertension I10 ??? Elevated cholesterol E78.00 ??? Obesity E66.9 ??? Solar lentigo L81.4 ??? Schreiber angioma D18.01 ??? Right knee pain M25.561 ??? Right ankle pain M25.571 ??? 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 Candidal intertrigo B37.2 ??? SK (seborrheic keratosis) L82.1 ??? Seborrheic keratosis, inflamed L82.0 ??? Hypercoagulable state D68.59 ??? Gastric polyp K31.7 ??? GERD (gastroesophageal reflux disease) K21.9 ??? CLL (chronic lymphocytic leukemia) C91.10 ??? Closed rib fracture S22.39XA ??? Acute thromboembolism of deep veins of lower extremity I82.409 ??? Irritable bowel syndrome K58.9 ??? Hip pain M25.559 ??? Edema of lower extremity R60.0 ??? Paresthesias R20.2 ??? Other specified visual disturbances H53.8 ??? Urinary tract infection N39.0 ??? Bursitis M71.9 ??? Diarrhea R19.7 ??? Backache M54.9 ??? Anxiety F41.9 ??? Tendonitis M77.9 ??? Joint swelling M25.40 ??? Atrial fibrillation I48.91 ROS General: feeling well. Oriented X 3. Skin: denies other skin complaints EXAM General: NAD, pleasant, cooperative Skin: A full body skin exam was performed. This includes examination of the skin of the face, ears, scalp, neck, chest, axillae, back, abdomen, left and right upper and lower extremities, hands, and feet. The genitalia were also examined with patient consent. Significant skin findings: A. Left lateral thigh: Well-healed scar s/p excision. B. Brown and flesh colored waxy nummular stuck on plaque located on the Central chest. C. Multiple 0.2-0.4cm bright red, well-demarcated papules on the abdomen and back. D. Scattered brown and flesh colored waxy nummular stuck on plaques located on trunk and extremities. E. Scattered: 0.3-0.6cm light-brown evenly pigmented, well-demarcated macules. F. Scattered: Multiple, 0.3-0.5cm, medium-brown, evenly-pigmented macules and papules. All with regular pigment pattern on dermoscopy. No pigmented lesions suspicious for melanoma. G. Scattered on the vulva: 1mm purple/black non scaly demarcated thin papules. ASSESSMENT/PLAN A. History of dysplastic nevus - No evidence of recurrence. - Continue to monitor. B. Inflamed/ Irritated Seborrheic Keratosis - Joint decision to pursue cryotherapy at this time due to lesion being symptomatic. Procedure Note Procedure: Destruction of lesion with cryotherapy. Number: 1 Location: Central chest Discussed procedure and expectations including risks (including risk of hypopigmentation) and benefits. Verbal consent obtained. Frozen with LN2, 15-30 second thaw time, TWICE. There were no complications; the patient tolerated the procedure well. Post-procedure expectations and wound care were reviewed. C. Schreiber Angiomas - Reassured of benign nature D. Seborrheic Keratosis - Reassured of benign nature, return to clinic if these lesions become inflamed or irritating E. Lentigines - Patient reassured of benign nature. - Observe skin for change in color, size or character. Call if such occur. F. Benign appearing nevi - Patient reassured of benign nature. - No lesions suspicious for melanoma identified on exam today. Will continue to monitor. - Discussed importance of sun protection, sun avoidance strategies, protective clothing, and sunscreen. I discussed warning signs for skin cancer, including the ABCDEs of melanoma. ?? - Observe skin for change in color, size or character. Call if such occur. G. Angiokeratomas - Patient reassured of benign nature. - No treatment necessary. RTC - 1 year for full skin exam or sooner as needed. Instructed patient to call with any questions or concerns. Note initiated and routed to physician for review and change by: Rosey Elliott LPN I, Rosey Elliott LPN, have performed the documentation for this encounter in the presence of and acting as a scribe for Suri Reid MD. I, Dr. Suri Reid, performed the visit service though my nurse assisted me in scribing the note. I reviewed and edited this note above, a scribed service performed by my nurse. On closure of this note I agree with the accuracy of the documentation. Suri Reid MD Section of Dermatology [facility] documented in this encounter Plan of Treatment Upcoming Encounters Date Type Specialty Care Team Description 03/06/2022 Office Visit Cardiology Lizeth Frazier MD [facility] [address] [place], [place] [address] (Wo rk) 03/18/2022 Office Visit Neurology Donovan Mayer MD [facility] NEUROLOGY DEPT. [place], [place] [address] (Wo rk) 04/24/2022 Appointment Hematology and Oncology 04/24/2022 Office Visit Hematology and Oncology Renea Navarro MD [facility] HEMATOLOGY/ONCOL CLAUDE DEPT. [place], [place] [address] (Wo rk) documented as of this encounter Visit Diagnoses Diagnosis History of dysplastic nevus Personal history of diseases of skin and subcutaneous tissue Multiple benign nevi Benign neoplasm of skin, site unspecifie d Angiokeratomas Benign neoplasm of skin, site unspecifie d Seborrheic keratoses Other seborrheic keratosis Schreiber angiomas Nevus, non-neoplastic Lentigines Other dyschromia Seborrheic keratosis, inflamed Inflamed seborrheic keratosis documented in this encounter Care Teams Appraisal Analyst Relationship Specialty Start Date End Date Ingrid Espinosa APRN PCP - General Internal Medicine 07/28/[address] [place] [address] documented as of this encounter
--- OUTSIDE RECORDS SUMMARY | 2021-12-21 00:34 | XMS_ITS | Encounter Summary ---
:1950 Author Organization [place] [address] Care Team Providers Name Role Phone Guillermina Espinosacresencio Trevino APRN Primary Care Provider Encounter Details Date Type Department Care Team Description 09/28/2019 Telephone Hematology and Oncology at Vikki Loya DO [facility] Kade prado HEMATOLOGY/[place] [address] [place] [address] [phone] (Wo rk) Social History Tobacco Use Types [...] this encounter Miscellaneous Notes Telephone Encounter - Vikki Matthew DO - 09/28/2019 9:14 PM EDT Brief Telephone Note: Received call from lab w/ critical WBC value of 42.7K. Patient has history of known CLL, no acute change in management required overnight. Will alert her primary hematology team. Vikki Matthew D.O. Hematology/Oncology Fellow Pager # [phone] 09/28/19, 9:15 PM documented in this encounter Plan of Treatment Upcoming Encounters Date Type Specialty Care Team Description 03/06/2022 Office Visit Cardiology Lizeth Frazier MD [facility] [place], [place] [address] (Wo rk) 03/18/2022 Office Visit Neurology Donovan Mayer MD [facility] ER NEUROLOGY DEPT. [place], [place] [address] (Wo rk) 04/24/2022 Appointment Hematology and Oncology 04/24/2022 Office Visit Hematology and Oncology Renea Navarro MD [facility] er HEMATOLOGY/ONCOL CLAUDE DEPT. [place], [place] [address] (Wo rk) documented as of this encounter Visit Diagnoses Not on filedocumented in this encounter Care Teams Director Payer Relationship Specialty Start Date End Date Ingrid Espinosa APRN PCP - General Internal Medicine 07/28/17 [address] [place] [address] documented as of this encounter
--- OUTSIDE RECORDS SUMMARY | 2021-12-21 00:34 | XMS_ITS | Encounter Summary ---
:1950 Author Organization [facility] [place] [address] Care Team Providers Name Role Phone Guillermina Espinosayce Uriel PALACIOS Primary Care Provider Encounter Details Date Type Department Care Team Description 11/29/2019 Hospital [place] [address] Social History Tobacco Use Types Packs/Day [...] Sig Dispensed Refills Start Date End Date cetirizine (ZyrTEC) 10 Take 10 mg by mouth 0 mg Tablet daily. fluticasone propionate 1 spray by Each Nare 0 (FLONASE) 50 route daily as mcg/actuation [place], needed. Suspension Bifidobacterium infantis Take by mouth. [...] Office Visit Cardiology Lizeth Frazier MD [facility] er Dr [place], [place] [address] (Wo rk) 03/18/2022 Office Visit Neurology Donovan Mayer MD [facility] NEUROLOGY DEPT. [place], [place] [address] (Wo rk) 04/24/2022 Appointment Hematology and Oncology 04/24/2022 Office Visit Hematology and Oncology Renea Navarro MD [facility] HEMATOLOGY/ONCOL OGY DEPT. [place], [place] [address] (Wo rk) documented as of this encounter Procedures Procedure Name Priority Date/Time Associated Comments Diagnosis SMEAR REVIEW REPORT Routine 11/30/2019 6:48 AM Re sults for this EDT procedure are i n the results section. PERIPHERAL SMEAR Routine 11/29/2019 6:48 AM Resul ts for this REVIEW EDT procedure are i n the results section. documented in this encounter Results Smear Review Report (11/30/2019 6:48 AM EDT) Component Value Ref Test Analysis Performed At [facility] Range Method Time Signature Smear Review [id number] ? Location: [facility] The signing pathologist has (i) examined the relevant preparation(s) for the [facility] specimen(s) and (ii) rendered or confirmed the diagnosis(es) . HOSPITAL LABORATORY . ? Sm ear Review DIAGNOSIS P eripheral blood, smear review: 1. Mature lymphocytosis with smudge cells present, consist ent with the ?? previously diagnosed chronic lymphocytic leukemia. 2. No morphologic evidence for progression to a higher grade process. Electronically signed by: ??Lucas WHITLEY, Angelica Daley Verified: ??11/30/2019 ?Hematopathologist Performed at: ??-[facility] Dept. of Pathology, [place], [place] ADDITIONAL STUDIES The white blood cell count is 61.75K/uL. The predominating c ells are small lymphocytes with clumped ch romatin, inconspicuous nucleoli and scant cytoplasm. Smudge cells and rare proly mphocytes are present. Mature neutrophils have normal morphology and there is no absolute tawanna tropenia (ANC = 3.0K/uL). No anemia is evident (Hgb 15.4 g/dL; MCV 93.9 fL), and RBC morphology is generally unremarkable. There is no increase in rod istocytes or spherocytes, and no rouleaux formation is noted. Platelets are sli ghtly decreased in number (131K/uL) but exhibit normal morphologic features. No blasts are appreciated. Neutrophils/bands 5%, Lympho cytes 92%, Monocytes 3%, Eosinophils 0%, Basophils 0%, Immature granulocytes 0%, Erythroid precursors 0/100 WBC. CLINICAL INFORMATION 69 yo woman with CLL. ?? Hem atopathologist review of CBC and peripheral blood smear requested for evaluation smudge cells. Specimen (Source) Anatomical Collection Method Collection Time Re ceived Time Location / / Volume Laterality 11/30/2019 6:[address] [facility] PATHOLOGY/CYTOLOGY ORDERABLE S Performing Organization Address City/[facility]/ZIP [place] [address] Peripheral Smear Review (11/29/2019 6:48 AM EDT) [facility] gist Method Time Signature Periph Smear See Comment [facility] LABORATORY Comment: When completed by the Pathologist, repor t [id number] will display under Hematopathology Reports. Specimen Anatomical Collection Method Collection Time Receive d Time (Source) Location / / Volume Laterality Blood specimen Venous Draw / 11/29/2019 6:48 AM 2019 (specimen) Unknown EDT 12:22 PM EDT Resulting Agency Comment Spec In Lab Dr [facility] HEMATOLOGY ORDERABLES Performing Organization Address City/[facility]/ZIP [place] [address] documented in this encounter Visit Diagnoses Not on filedocumented in this encounter Care Teams Ic Engineer Relationship Specialty Start Date End Date Ingrid Espinosa APRN PCP - General Internal Medicine 07/28/17 [place] [address] documented as of this encounter
--- OUTSIDE RECORDS SUMMARY | 2021-12-21 00:34 | XMS_ITS | Encounter Summary ---
:1950 Author Organization [facility] [place] [address] Care Team Providers Name Role Phone Ingrid Espinosa APRN Primary Care Provider Encounter Details Date Type Department Care Team Description 04/07/2020 Telephone Gastroenterology at [facility] Daniel Chang [facility] [place] [address] Social History Tobacco Use Types Packs/Day [...] this encounter Miscellaneous Notes Telephone Encounter - Daniel Chang RN - 04/07/2020 5:10 PM EST Patient calls the office leaving a message on the RN voicemail stating that she saw Suri Newton APRN back in the past and is experiencing diarrhea, she states that she is following a FODMAP diet and asks if Suri has any advise. Returned call to patient. Explained that she would need to schedule an appointment to see Suri as her last visit ws 04/08/2018 and many things can change in that period of time. Patient verbalized understanding and stated that she also has a call into her PCP. Forwarding to Suri Newton APRN as an FYI. documented in this encounter Plan of Treatment Upcoming Encounters Date Type Specialty Care Team Description 03/06/2022 Office Visit Cardiology Lizeth Farzier MD [facility] [place], [place] [address] (Wo rk) 03/18/2022 Office Visit Neurology Donovan Mayer MD [facility] NEUROLOGY DEPT. [place], [place] [address] (Wo rk) 04/24/2022 Appointment Hematology and Oncology 04/24/2022 Office Visit Hematology and Oncology Renea Navarro MD [facility] HEMATOLOGY/ONCOL CLAUDE DEPT. [place], [place] [address] (Wo rk) documented as of this encounter Visit Diagnoses Not on filedocumented in this encounter Care Teams Forestry Crew Chief Relationship Specialty Start Date End Date Ingrid Espinosa APRN PCP - General Internal Medicine 07/28/[address] [place] [address] documented as of this encounter
--- OUTSIDE RECORDS SUMMARY | 2021-12-21 00:34 | XMS_ITS | Encounter Summary ---
:1950 Author Organization [facility] [address] Care Team Providers Name Role Phone Ingrid Espinosa APRN Primary Care Provider Reason for Referral Diagnostic Test (Routine) - Closed Specialty Diagnoses / Procedures Referred By Contact Refer red To Contact Cardiology Diagnoses Atrial fibrillation, unspecified type Young Rubalcava MD [facility] Non-Inv Card Lab Procedures Echocardiogram Transthoracic([facility]) [facility] [place] [address] [place] [address] Fax: Referral ID Status Reason Start Date Expiration Date Visits V isits Requested Authorized [id number] Closed Specialty 01/13/2020 07/10/2020 1 1 Service Requested Reason for Visit Reason Comments Atrial Fibrillation Ekg Consultation (Routine) - Closed Specialty Diagnoses / Procedures Referred By Contact Refer red To Contact Cardiology Diagnoses Unspecified atrial fibrillation Obesity, unspecified Hypothyroidism, unspecified Hyperlipidemia, unspecified Chronic lymphocytic leukemia of B-cell type not having achieved remission Ingrid Espinosa APRN [facility] [address] [place] [id number] Referral ID Status Reason Start Date Expiration Date Visits V isits Requested Authorized [id number] Closed Consult, Test 12/09/2019 12/08/2020 1 [facility] PCP Updated and/or Approved Encounter Details Date Type Department Care Team Description 12/14/2019 Office Visit Cardiology at [facility] Young Rubalcava, Atrial fibrillation, [facility] unspecified type Drive [facility] (Primary Dx) [place] [address] CARDIOLOGY DEPT. [phone] [place], [place] [address] Social History Tobacco Use Types [...] Sign Reading Time Taken Comments Blood Pressure 150/71 12/14/2019 9:31 AM EDT Pulse 62 12/14/2019 9:31 AM EDT Temperature - - Respiratory Rate - - Oxygen Saturation 98% 12/14/2019 9:31 AM EDT Inhaled Oxygen Concentration - - Weight 101.4 kg (223 lb 9.6 oz) 12/14/2019 9:31 AM EDT Height 175.3 cm (5' 9) 12/14/2019 9:31 AM EDT Body Mass Index 33.02 12/14/2019 9:31 AM EDT documented in this encounter Patient Instructions Patient InstructionsYoung Rubalcava MD - 12/14/2019 9:40 AM EDT Continue on your current medication. We will get an echo to check on how your heart is structured and functions. I will call you with theresults. Work on insuring your blood pressure is under good control Call me with any concerns. I will see you back in 6 months. documented in this encounter Progress Notes Young Rubalcava MD - 12/14/2019 9:40 AM EDT SUBJECTIVE: 69 y.o.woman referred by Fer Espinosa APRN for a CC of AF. Patient Active Problem List Diagnosis ??? Atrial fibrillation ??? Closed rib fracture [...] and wait approach. ??? Gastric polyp ??? Acute thromboembolism of deep veins of [...] i. Repeat U/S OSH 2006 normal. C. oysterman anticoagulation since 2005. D. Thrombosis panel off warfarin 2011 nondiagnostic. D-dimer <200. ??? Right knee pain ??? Solar lentigo ??? Schreiber angioma ??? Lumbar radiculopathy ??? Carcinoid tumor ??? Migraine ??? Hypothyroid ??? Sleep apnea ??? Benign renal tumor ??? Depression ??? Hypertension ??? Elevated cholesterol ??? Obesity ??? CIS - Tinea pedis Past Surgical History: Procedure Laterality Date ??? CATARACT REMOVAL WITH IMPLANT Bilateral ??? SECTION 1986 ??? CHOLECYSTECTOMY 2006 ??? COLONOSCOPY 07/22/2016 ??? CREATED BY INTERFACE Entered not Verified Procedure Date: 05/22/2010 ??? CREATED BY INTERFACE No History of Operative Procedures Procedure Date: 05/22/2010 ??? ENDOSCOPY, UPPER GI, SIMPLE PRIMARY EXAM ??? LUMBAR SPINE SURGERY 1976 discectomy , [facility] ??? PRO COLONOSCOPY, BIOPSY N/A 06/30/2018 COLONOSCOPY FLEXIBLE, WITH BX (WRVU 3.66) performed by Sunday Bolaños MD at [facility] ENDOSCOPY ??? PRO UPPER GI ENDOSCOPY, BIOPSY N/A 06/30/2018 EGD WITH BIOPSY (WRVU 2.49) performed by Sunday Bolaños MD at [facility] ENDOSCOPY ??? TOE SURGERY right ??? UPPER GASTROINTESTINAL ENDOSCOPY removal of carcinoid ??? WISDOM TOOTH EXTRACTION Family History Problem Relation Age of Onset ??? Heart Disease Mother ??? Arthritis Mother ??? Diabetes Mother ??? Hypertension Mother ??? Hyperlipidemia Mother ??? Heart Disease Father ??? Arthritis Father ??? Chronic Obstructive Pulmonary Disease Father ??? Hyperlipidemia Father ??? Arthritis Sister ??? Depression Brother ??? Connective Tissue Disease Daughter Social History Socioeconomic History ??? Marital status: Single Spouse name: None ??? Number of children: 1 ??? Years of education: None ??? Highest education level: None Occupational History ??? 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 Financial resource strain: None ??? Food insecurity Worry: None Inability: None ??? Transportation needs Medical: None Non-medical: None Tobacco Use ??? Smoking status: Never Smoker ??? Smokeless tobacco: Never Used Substance and Sexual Activity ??? Alcohol use: No Frequency: Never ??? Drug use: No Comment: denies illicit drug use or abuse ??? Sexual activity: None Comment: deferred Lifestyle ??? Physical activity Days per week: None Minutes per session: None ??? Stress: None Relationships ??? Social connections Talks on phone: None Gets together: None Attends denominational service: None Active member of club or organization: None Attends meetings of clubs or organizations: None Relationship status: None ??? Intimate partner violence Fear of current or ex partner: None Emotionally abused: None Physically abused: None Forced sexual activity: None Other Topics Concern ??? None Social History Narrative ??? None Current Outpatient Medications Medication Sig Dispense Refill ??? metoprolol succinate XL (Toprol-XL) 25 mg Tablet Sustained Release 24 hr Take 25 mg by mouth daily. ??? Xarelto 20 mg Tablet Take 20 mg by mouth daily. ??? cetirizine (ZyrTEC) 10 mg Tablet Take 10 mg by mouth daily. ??? simvastatin (ZOCOR) 20 mg Tablet Take 20 mg by mouth. ??? fluticasone propionate (FLONASE) 50 mcg/actuation [place], Suspension ??? ranitidine (ZANTAC) 150 mg Tablet [...] SYSTEMS (HORIZON NASAL CPAP SYSTEM MISC) by [facility].(Non- Drug; Combo Route) route nightly. ??? levothyroxine (SYNTHROID) 25 mcg tablet Take 37.5 mcg by mouth daily. No current facility-administered medications for this visit. Allergies Allergen Reactions ??? Latex Rash and Other (See Comments) Red welts ??? Sulfa (Sulfonamide Antibiotics) Rash ??? Codeine Other (See Comments) Bad dreams ??? Adhesive Tape ??? Adhesive Tape-Silicones Rash ??? Gluten ??? Hydrocodone-Acetaminophen Other (See Comments) Mental Status Changes ??? Lactose fodmap diet ??? Penicillins HPI: FROM 12/13/19: Presented to her local hospital 11/29/19 with a CC of 4/10 chest pain and lightheadedness. Found to be in new AF with a well controlled rate. TN x 2 negative. TSH not low. K 4.0. Other electrolytes and renal function WNL (see scanned documents). Started on systemic anticoagulation for a [id number] Score of 2 and low dose metoprolol. Two days later at her PCP was back in a regular rhythm. Has had no recurrence since then. Taking all her medications as prescribed and notes no side effects. Has not had an echo. Cardiac history significant for hypertension, hypercholesterolemia and obesity. No history of significant lung disease or pulmonary embolism. Has well treated CARLOS - wears CPAP on a regular basis. Has long standing hypertension. Has recently bought herself a large cuff and plans to start monitoring her BP at home. 1-2 cups of coffee per day. No other caffeinated beverages. Occasoinal alcohol. Uses Zytrec on a regular basis. No recreational drugs. Has a several year history of a heart murmur. Has a daughter with EDS Type 2. The patient has been evaluated for EDS and does not have it. There has never been genetic testing. ROS: The patient denies or endorses (+): General: Unusual fatigue, fever, night sweats Cardiac: Unusual chest pains and/or pressures, unusual HARP, orthopnea, PND, peripheral edema, new nocturia, palpitations, presyncope, syncope Pulmonary: Cough, wheezing, sputum production, hemoptysis Neuro: TIA or stroke-like symptoms Vascular: Exertional calf, thigh or buttock pain to suggest claudication : Hematuria GI: Melena, bright red blood per rectum MS: Myalgias or arthralgias Endo: Cold or heat intolerance PHYSICAL EXAM Blood pressure 150/71, pulse 62, height 175.3 cm (5' 9), weight 101.4 kg (223 lb 9.6 oz), SpO2 98 %. HEENT: Normocephalic, anicteric Chest: No palpation tenderness Lungs: Clear to auscultation and percussion Cardiac: Normal CVP, carotid up strokes full/not delayed, no carotid bruits, PMI discrete and not displaced, S1, II/ holosystolic, S2 with physiologic splitting, no murmurs/rubs/gallops appreciated Abdomen: Normal bowel sounds, soft, nontender, no organomegaly Pulses: 2+ and symmetrical throughout, no femoral artery bruits Extremities: No clubbing, cyanosis, or edema Neuro: Grossly intact ECHO 12/13/19: EKG 12/13/19 which I personally reviewed: NSR with 1AVB ASSESSMENT & PLAN: PAF: New onset PAF with good rate control and systemic anticoagulation. Back in NSR. [id number] of 3 for a 3.2% annual risk of stroke. On systemic anticoagulation. Likely etiology if long standing hypertension. Will obtain an echo to rule out structural heart disease. I will call her with the results. Duration of anticoagulation should be at least 6 months. Needs to insure goodBP control. Discussed the nonpharmacologic management of hypertension. Time was spent in a face to face conversation with the patient (and accompanying family members, ifpresent) regarding my impressions and recommendations and providing counseling. All questions were answered to the patient's (and accompanying family's, if present) satisfaction. I will plan to see thepatient back in follow-up in 6 months. documented in this encounter Plan of Treatment Upcoming Encounters Date Type Specialty Care Team Description 03/06/2022 Office Visit Cardiology Lizeth Frazier MD [facility] [place] [address] (Wo rk) 03/18/2022 Office Visit Neurology Donovan Mayer MD [facility] NEUROLOGY DEPT. [place], [place] [address] (Wo rk) 04/24/2022 Appointment Hematology and Oncology 04/24/2022 Office Visit Hematology and Oncology Renea Navarro MD [facility] HEMATOLOGY/ONCOL OGY DEPT. [place], [place] [address] (Wo rk) documented as of this encounter Procedures Procedure Name Priority Date/Time Associated Diagnosis Comme nts EKG 12-LEAD Routine 12/14/2019 9:40 AM Atrial fibrillation, R esults for this EDT unspecified type procedure a re in the results section. documented in this encounter Results ECHOCARDIOGRAM COMPLETE (01/19/2020 2:02 PM EDT) P athologist Signature EF 76 HEARTLAB SYSTEM Specimen (Source) Anatomical Location Collection Method / Collectio n Time Received Time / Laterality Volume 01/19/2020 Narrative HEARTLAB SYSTEM - 01/19/2020 2:45 PM EDT Procedure: ?Transthoracic Echocardiogram Patient: ?MADHURI Nelson ?(Age): 1950(69y) Med Rec#: ? [id number] ?Sex: ?F ? Site Loc: ? DH ?Ht / Wt: ??175(cm)/102(kg) Pt. Loc: ?Echo Lab ?BSA: ?2.17 Study Date: ?? 01/19/2020 ?Pt. Type: Outpatient Tape: ? Referring: NUNO Reading: Nahum Brown ([id number]) Project Leader: Kelin Ceja Interpreting Fellow: Maria G Ovalles ([id number]) Diagnosis: *Unspecified atrial fibrillation (I48.9 1) Rhythm: [...] E-wave Vmax ?0.8 ?m/sec ? MV deceleration ufsr943.45 ? m sec ? MV A-wave Vmax [...] ? Mid-Inferior ?Normal ? Mid-Inferoseptal ?Normal ? Merritt-Septal ? Normal ? Merritt-Anterior ? Normal ? Merritt-Lateral ?Normal ? [place]-Inferior ? Normal ? [place]itt-Tip ?Normal ? This report has been electronically sign ed by: _ Nahum Brown M.D. ? 01/19/2020 14:44:50 Images reviewed and interpretation baljeet kong [facility] Cardiac Ultrasound Laboratory Procedure Note Nahum Brown MD - 01/19/2020Formatti veronique of this note might be different from the original. Procedure: Transthoracic Echocardiogram Patient: MADHURI Nelson (Age): 1949(69y) Med Rec#: [id number] Sex: F Site Loc: [facility] Ht / Wt: 175(cm)/102(kg) Pt. Loc: Echo Lab BSA: 2.17 Study Date: 01/19/2020 Pt. Type: Outpati ent Tape: Referring: NUNO Reading: Nahum Brown ([id number]) Project Leader: Kelin Ceja Interpreting Fellow: Maria G Ovalles ([id number]) Diagnosis: *Unspecified atrial fibrillation (I48.9 1) Rhythm: [...] MV E-wave Vmax 0.8 m/sec MV deceleration golp006.45 msec MV A-wave Vmax 0.44 m/sec MV [...] Normal Mid-Posterolateral Normal Mid-Inferior Normal Mid-Inferoseptal Normal Merritt-Septal Normal Merritt-Anterior Normal Merritt-Lateral Normal Merritt-Inferior Normal Merr[place]-Tip Normal This report has been electronically sign ed by: Johan Brown M.D. 01/19/2020 14:44 :50 Images reviewed and interpretation baljeet kong [facility] Cardiac Ultrasound Laboratory Young Rubalcava MD ECHO ORDERABLES Performing Organization Address City/State/ZIP Code Phon e Number HEARTLAB SYSTEM EKG 12 Lead (12/14/2019 9:40 AM EDT) Component Value Ref Range Test Analysis Performed Pathologis t Method Time At Signature Ventricular rate 58 BPM MUSE SYSTEM Atrial Rate 58 BPM MUSE SYSTEM P-R Interval 272 ms MUSE SYSTEM QRS Duration 82 ms MUSE SYSTEM Q-T Interval 392 ms MUSE SYSTEM QTC Calculated 384 ms MUSE SYSTEM (Bezet) Calculated P [place] 37 degrees MUSE SYSTEM Calculated R [place] 32 degrees MUSE SYSTEM Calculated T [place] 39 degrees MUSE SYSTEM INTERPRETATION Sinus bradycardia with 1st degree A-V block MUSE SYSTEM Possible Left atrial enlargement Borderline ECG No previous ECGs available Confirmed by MD YVON, OLGA ([id number]) on 12/14/2019 12:32:2 0 PM Specimen Anatomical Collection Method Collection Time Receive d Time (Source) Location / / Volume Laterality 12/14/2019 9:40 AM 0 EDT 12:32 PM EDT Young Rubalcava MD ECG ORDERABLES Performing Organization Address City/State/ZIP Code Phon e Number MUSE SYSTEM documented in this encounter Visit Diagnoses Diagnosis Atrial fibrillation, unspecified type - Primary Atrial fibrillation, unspecified type documented in this encounter Care Teams Modeling Analyst Relationship Specialty Start Date End Date Ingrid Espinosa APRN PCP - General Internal Medicine 07/28/[address] [place] [address] documented as of this encounter
--- OUTSIDE RECORDS SUMMARY | 2021-12-21 00:34 | XMS_ITS | Encounter Summary ---
:1950 Author Organization [facility] [place] [address] Care Team Providers Name Role Phone Ingrid Espinosa APRN Primary Care Provider Reason for Visit Reason Comments Atrial Fibrillation Hypertension Consultation (Routine) - Closed Specialty Diagnoses / Procedures Referred By Contact Refer red To Contact Cardiology Diagnoses Essential (primary) hypertension Unspecified atrial fibrillation Ingrid Espinosa APRN [facility] [address] [place] [address] [place] [address] Fax: Referral ID Status Reason Start Date Expiration Date Visits V isits Requested Authorized [id number] Closed Consult, Test 12/15/2019 12/14/2020 1 1 [facility] PCP Updated and/or Approved Encounter Details Date Type Department Care Team Description 01/12/2020 Office Visit Cardiology at Lizeth Frazier MD Essential hypertension; [facility] Paroxysmal atrial fibrillati on [address] [place] [address] [place], [place] [phone] [address] (Work) [phone] Social History Tobacco Use Types Packs/Day Years [...] Sign Reading Time Taken Comments Blood Pressure 137/76 01/12/2020 2:38 PM EDT Pulse 74 01/12/2020 2:38 PM EDT Temperature - - Respiratory Rate - - Oxygen Saturation - - Inhaled Oxygen Concentration - - Weight 101.6 kg (224 lb) 01/12/2020 2:38 PM EDT Height 175.3 cm (5' 9) 01/12/2020 2:38 PM EDT Body Mass Index 33.08 01/12/2020 2:38 PM EDT documented in this encounter Progress Notes Lizeth Frazier MD - 01/12/2020 2:20 PM EDT CARDIOLOGY OUTPATIENT FOLLOW-UP NOTE PRIMARY CARE PROVIDER: Ingrid Espinosa APRN REFERRING PROVIDER: Ingrid Espinosa PROBLEM LIST: Patient Active Problem List Diagnosis ??? Chronic headache ??? Atrial fibrillation ??? [...] count: 159. She is referred to [facility] for further evaluation of the incidentally noted [...] i. Repeat U/S OSH 2006 normal. C. assisted anticoagulation since 2005. D. Thrombosis panel off [...] mouth. ??? fluticasone propionate (FLONASE) 50 mcg/actuation [place], Suspension ??? ranitidine (ZANTAC) 150 mg Tablet [...] SYSTEMS (HORIZON NASAL CPAP SYSTEM MISC) by [facility].(Non- Drug; Combo Route) route nightly. ??? levothyroxine (SYNTHROID) 25 mcg tablet Take 37.5 mcg by mouth daily. No current facility-administered medications for this visit. Subjective: Patient ID: Saundra Blanton is a 69 y.o. female. HPI This 69-year-old woman presents to establish cardiac follow-up. In November she presented to the emergency room in [facility] with paroxysmal atrial fibrillation. At that time myocardial infarction was excluded and she was started on metoprolol and Xarelto. She subsequently was seen in consultation down at [facility] by Dr. Rubalcava. An echocardiogram has been ordered and is scheduled for nextweek. The patient has had no recurrence of palpitations dizziness lightheadedness or near syncope similar to that when she had paroxysmal atrial fibrillation She does not have any known history of coronary artery disease. She has started riding a bicycle andhas noted exertional shortness of breath which sounds appropriate to the level of exercise. She doesnot experience exertional chest discomfort suggestive of angina She has a history of hypertension and other chronic medical problems which are enumerated on her problem list She has been anxious since her episode of atrial fibrillation Review of System Review of Systems All other systems reviewed and are negative. [...] Not on file Occupational History ??? 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 Financial resource strain: Not [...] file Gets together: Not on file Attends zoroastrianism service: Not on file Active member of [...] signs and nursing note reviewed. Constitutional: Comments: Overweight, appears stated age, no acute distress Eyes: Extraocular Movements: Extraocular movements intact. Pupils: Pupils are equal, round, and reactive to light. Neck: Musculoskeletal: Normal range of motion and neck supple. Vascular: No carotid bruit. Cardiovascular: Rate and Rhythm: Normal rate and regular rhythm. Pulses: Normal pulses. Heart sounds: Normal heart sounds. No murmur. No gallop. Pulmonary: Effort: Pulmonary effort is normal. Breath sounds: Normal breath sounds. Abdominal: Tenderness: There is no abdominal tenderness. Musculoskeletal: Comments: Brace right ankle, has a cane Skin: General: Skin is warm and dry. Neurological: Mental Status: She is oriented to person, place, and time. Patient Vitals for the past 24 hrs: Pulse BP 01/12/20 1438 74 137/76 EKG today shows 78, first-degree AV block Assessment and Plan: #1. Paroxysmal atrial fibrillation. Patient is currently in sinus rhythm. She is taking a beta-radha and is on Xarelto for stroke prevention An echocardiogram is upcoming and she was urged to keep the appointment We discussed strategies for management of atrial fibrillation including rate and rhythm control. Given that she has had only one episode so far, her therapy is appropriate We discussed anticoagulation and her risk of stroke ,3 to 4 %/year. Xarelto is affordable for her Follow-up is going to be planned in 3 months In the absence of exertional chest discomfort I do not think exercise testing or ischemic evaluationis currently warranted #2. Hypertension. Adequate blood pressure control on current medications Thank you for the opportunity to participate in this patient's cardiovascular care. All questions were answered and I look forward to the next visit. documented in this encounter Plan of Treatment Upcoming Encounters Date Type Specialty Care Team Description 03/06/2022 Office Visit Cardiology Lizeth Frazier MD [facility] [address] [place], [place] [address] (Wo rk) 03/18/2022 Office Visit Neurology Donovan Mayer MD [facility] NEUROLOGY DEPT. [place], [place] [address] (Wo rk) 04/24/2022 Appointment Hematology and Oncology 04/24/2022 Office Visit Hematology and Oncology Renea Navarro MD [facility] HEMATOLOGY/ONCOL CLAUDE DEPT. [place], [place] [address] (Wo rk) documented as of this encounter Visit Diagnoses Diagnosis Essential hypertension Unspecified essential hypertension Paroxysmal atrial fibrillation Atrial fibrillation documented in this encounter Care Teams Labor Law Professor Relationship Specialty Start Date End Date Ingrid Espinosa APRN PCP - General Internal Medicine 07/28/[address] [place] [address] documented as of this encounter
--- OUTSIDE RECORDS SUMMARY | 2021-12-21 00:34 | XMS_ITS | Encounter Summary ---
:1950 Author Organization [facility] [place] [address] Care Team Providers Name Role Phone FranciscaIngrid allison Uriel PALACIOS Primary Care Provider Encounter Details Date Type Department Care Team Description 02/29/2020 Office Visit [place]rology [place] [facility] [place] Maeyr, Radiculopathy of lumbar [facility] MD [address] [place], [place] CENTER [address] NEUROLOGY DEPT. [phone] [place], [place] [address] Social History Tobacco Use Types [...] Sign Reading Time Taken Comments Blood Pressure 114/61 02/29/2020 10:26 AM EDT Pulse 89 02/29/2020 10:26 AM EDT Temperature - - Respiratory Rate - - Oxygen Saturation - - Inhaled Oxygen Concentration - - Weight 99.3 kg (219 lb) 02/29/2020 10:26 AM EDT Height 175.3 cm (5' 9) 02/29/2020 10:26 AM EDT Body Mass Index 32.34 02/29/2020 10:26 AM EDT documented in this encounter Patient Instructions Patient InstructionsDonovan Mayer MD - 02/29/2020 10:30 AM EDT I think you are doing [...] necessary. Donovan Mayer [place] [address] Pager: [phone], #[phone] Email: [email or web address] documented in this encounter Progress Notes Donovan Mayer MD - 02/29/2020 10:30 AM EDT Neurology clinic note Chief Complaint: [...] In 2017 she felt her back problems are getting worse. She continued to have some back and leg pain.Her right ankle and foot, where she had the sprain and fracture on the right, improved, but she feltshe was getting more radicular pain, and that the right leg was weaker. Her balance remained chronically somewhat bad, but she did quite well walking with a cane. When I saw her in 2017, I thought that her exam was somewhat worse and requested a follow-up MRI scan. This showed degenerative changes at multiple levels but no obviously approachable surgical lesion. There arepostsurgical changes at L5-S1. She was referred for an epidural steroid injection which produced significant improvement in her back and leg symptoms.. She was noted to have lymphadenopathy as an incidental finding on her MRI scan, and was subsequentlydiagnosed with chronic lymphocytic leukemia Interval history: As of 2019 the patient is doing reasonably well. She is not complaining [...] tumors, angiomyolipomas, which are stable at present. PMH: Patient Active Problem List Diagnosis ??? Chronic [...] Plt count: 159. 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 Physical Exam: BP 114/61 (BP Location (NBP): Left arm, Patient Position: Sitting, BP Cuff Sizes: Large Adult (32-43cm)) Pulse 89 Ht 175.3 cm (5' 9) Wt 99.3 kg (219 lb) BMI 32.34 kg/m?? Head, eyes, ears, nose, and throat were normal. Heart and lungs were normal. At baseline has sysystolic ejection murmur. Heart rate seems irregular. There are some arthritic deformities of the right ankle and foot. She is mentally intact and speech was normal Cranial nerves were normal. Strength was essentially normal, except there is 3-4/5 weakness of dorsiflexion of the big toe [...] Outpatient Medications Medication Sig Dispense Refill ??? gabapentin (Neurontin) 300 mg Capsule Take [...] mouth. ??? fluticasone propionate (FLONASE) 50 mcg/actuation [place], Suspension ??? Bifidobacterium infantis (ALIGN) 4 mg [...] SYSTEMS (HORIZON NASAL CPAP SYSTEM MISC) by [facility]Non- Drug; Combo Route) route nightly. ??? levothyroxine (SYNTHROID) 25 mcg tablet Take 37.5 mcg by mouth daily. No current facility-administered medications for this visit. Impression: There continue to be several neurological issues here, but the patient is doing quite well. 1. She has chronic mild lumbar right L4-S1 radiculopathy with symptoms and signs, as noted above, worse on the right. This is now stable and compatible with changes on MRI.. I do not see a clear surgical target. The weakness of toe dorsiflexion and foot eversion on the right is I believe part of the lumbar radiculopathy and was getting worse. Following lumbar epidural steroid injection it is better now appears stable. At present I would do nothing more. [...] use gabapentin which I think is reasonable. She would like to increase the nighttime dose of gabapentin which is reasonable. I have rewritten the prescription for 600 mg nightly. 4. 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 She is now in atrial fibrillation, and therapeutically anticoagulated. I do not see any signs of stroke or other deficits related to the atrial fibrillation. I will see her back in 9 months or sooner if necessary. Thank you for this consultation. Donovan Mayer MD Department [place] [address] Pager: [phone], #[phone] Email: [email or web address] CC: Ingrid Espinosa APRN documented in this encounter Plan of Treatment Upcoming Encounters Date Type Specialty Care Team Description 03/06/2022 Office Visit Cardiology Lizeth Frazier MD [facility] er [address] [place] [address] (Amado quick) 03/18/2022 Office Visit Neurology Donovan Mayer MD [facility] NEUROLOGY DEPT. [place], [place] [address] (Amado quick) 04/24/2022 Appointment Hematology and Oncology 04/24/2022 Office Visit Hematology and Oncology Renea Navarro MD [facility] er HEMATOLOGY/ONCOL CLAUDE DEPT. [place], [place] [address] (Wo rk) documented as of this encounter Visit Diagnoses Diagnosis Radiculopathy of lumbar region Thoracic or lumbosacral neuritis or radi culitis, unspecified documented in this encounter Care Teams Kitchen Steward/Stewardess Relationship Specialty Start Date End Date Ingrid Espinosa APRN PCP - General Internal Medicine 07/28/[address] [place] [address] documented as of this encounter
--- OUTSIDE RECORDS SUMMARY | 2021-12-21 00:34 | XMS_ITS | Encounter Summary ---
:1950 Author Organization [facility] [place] [address] Care Team Providers Name Role Phone Ingrid Espinosa Uriel PALACIOS Primary Care Provider Reason for Referral Diagnostic Test (Routine) - Closed Specialty Diagnoses / Procedures Referred By Contact Refer red To Contact Radiology Diagnoses Renal angiomyolipoma Maria D Gunter [facility] Rad Ct Scan Procedures CT Urogram SUZANNE [facility] [place] [address] [place] [address] Referral ID Status Reason Start Date Expiration Date Visits V isits Requested Authorized [id number] Closed Specialty 12/13/2019 06/14/2021 1 1 Service Requested Encounter Details Date Type Department Care Team Description 12/13/2019 Office Visit Urology at [facility] Coleman Du MD Renal angiomyolipoma; [facility] [address] [place] [address] [place] [address] Social History Tobacco Use Types [...] Sign Reading Time Taken Comments Blood Pressure 120/50 12/13/2019 2:28 PM EDT Pulse 67 12/13/2019 2:28 PM EDT Temperature - - Respiratory Rate - - Oxygen Saturation - - Inhaled Oxygen Concentration - - Weight - - Height - - Body Mass Index - - documented in this encounter Progress Notes Coleman Du MD - 12/13/2019 2:20 PM EDT Patient Name: Saundra Blanton MR: [id number] Date of Service: 08/07/15 Primary Care Provider: Elmer Dunn MD [phone] Reason for Visit: Saundra Blanton is a 65 year old woman who is here for follow up. She had completion of a microhematuria w/u. She is followed for bilateral angiomyolipomas. Outside scans reviewed 04/21 CT abdomen 2 left ~1.5 cm AML, 2 right <0.5 cm AML. No hounsfield measurements but clearly appear to be fat. 04/22 CT abdomen No change No changes. No flank pain. No hematuria, no change in urinary symptoms. She feels she empties ok andis not bothered by her bladder. No UTIs. She has back pain and walks with a cane, she also has an ankle brace-stable. Appetite stable, no weight change. No new back or bone pain Change in PMhx/Pshx since last visit. Back pain undergoing evaluation Cholecystectomy Removal of Gastric Carcinoid Patient Active Problem List Diagnosis Code ??? [...] Joint swelling M25.40 ??? Atrial fibrillation I48.91 Examination: Appears well, NAD abd soft, nontender, no masses or cva tenderness. Walks with a cane Otherwise grossly normal Labs: None X-rays: 08/22 [facility] U/S AMLS visualised and no change in size as compared with 04/21 CT 10/23 [facility] U/S Slightly larger 1-2mm 10/24 [facility] U/S minimal change all <2cm 10/25 [facility] U/S minimal change all <2cm 10/2009 [facility] U/S minimal change all <2cm 02/27: US: right AML is now 2 cm, about 1 cm larger than 2 years ago. Left AML is stable-reviewed with Dr. Du 02/28: US: Impression Ultrasound - Retroperitoneal Complete - Summary 1) Interval increase in size of a right lower pole angiomyolipoma which now measures 2.3 cm. 2) Unchanged left angiomyolipomas. 3) Partially distended bladder appears normal. 06/2014 US Impression Impression Ultrasound - Retroperitoneal Complete - Summary Bilateral stable small angiomyolipomas with one new 5mm right sided echogenic mass similar to others. 3 right sided AMLs, 2 left sided AMLs 07/2015: renal US: imaging reviewed. ??Ultrasound -?? [...] ??3.?? Unremarkable bladder for degree of distention. 11/2019 Renal U/S 10/2009 PVR by bladder scan = 0 Labs 06/2014: U/A Negative 07/2015: rbc-UA sent Cystoscopy 03/2013: Normal Cytology 03/2013: Negative Impression: Bilateral AML's, asymptomatic. Still all small in size and generally stable Negative microhematuria w/u Plan: UA sent today Renal U/S in 24 months to follow AML's Imaging reviewed with Dr. Du today as well as plan of care Maria D Bravo APRN Maria D Gunter APRN - 12/13/2019 2:20 PM EDT Patient Name: Saundra Blanton MR: [id number] Date of Service: 12/13/2019 Primary Care Provider: Ingrid Espinosa MD [phone] ?? Reason for Visit: Saundra Blanton is a 69 year old woman who is here for follow up. She had completion of a microhematuria w/u. She is followed for bilateral angiomyolipomas. ?? Outside scans reviewed 04/21 CT abdomen 2 left ~1.5 cm AML, 2 right <0.5 cm AML. No hounsfield measurements but clearly appear to be fat. 04/22 CT abdomen No change 08/03 CT a/p: No change in AML, however new bilateral non-obstructing kidney stones. ?? Some gross hematuria. Last week. A lot of blood and just with wiping. Had some vaginal irritation, but did not before at other time with gross blood with wiping. No clots. No smoking history. No chemical or dye exposure. A few wipes. No change in urinary symptoms like urgency and frequency. No UTIs. She has back pain and walks with a cane, she also has an ankle brace-stable. Appetite stable, weight down with trying-26 lbs. No new back or bone pain ?? Change in PMhx/Pshx since last visit. Back pain with ongoing therapy ?? Patient Active Problem List Diagnosis Code [...] Gastric polyp K31.7 Examination: Appears well, NAD No neck or inguinal adenopathy abd soft, nontender, no masses or cva tenderness. : atrophic labial with left sided excoriation-likely where she had the bleeding from. Labial fusion No urethral caruncle. No other abnoraalities Walks with a cane Otherwise grossly normal ?? Labs: None ?? X-rays: 08/22 [facility] U/S AMLS visualised and no change in size as compared with 04/21 CT 10/23 [facility] U/S Slightly larger 1-2mm 10/24 [facility] U/S minimal change all <2cm 10/25 [facility] U/S minimal change all <2cm 10/2009 [facility] U/S minimal change all <2cm 02/27: US: [...] bladder appears normal. ?? 06/2014 US Impression Impression Ultrasound 07/2017 Impression: Small bilateral angiomyolipomas, [...] distention. 12/13/2019: renal US: Dr. Du reviewed. Will see what final report shows, appears stable per his review. Per report: 1. On the RIGHT, what is previously [...] 2.6 cm 3. No hydronephrosis or hydroureter. 10/2009 PVR by bladder scan = 0 ?? Labs 06/2014: U/A Negative 07/2015: rbc-UA sent 11/2019: sent for UA/culture and cytology ?? Cystoscopy 03/2013: Normal ?? Cytology 03/2013: Negative ?? Impression: Bilateral AML's, asymptomatic. Still all small in size and generally stable Bilateral non-obstructing renal stones on CT Blood with wiping ? Plan: Given change in AMLs, will do CTU given blood and change in size to see if true difference in CT from 2018. We discussed CTU and cystoscopy. We also discussed her exam and sending for UA/cytology. If negative, we could monitor given her external findings or consider cystoscopy again. We discussed risk of missing bladder findings by not doing a formal cystoscpoy. ?? All pt questions. Imaging and report reviewed with Dr. Du and pt. He is content with the plan. ?? Maria D Bravo aPRN documented in this encounter Plan of Treatment Upcoming Encounters Date Type Specialty Care Team Description 03/06/2022 Office Visit Cardiology Lizeth Frazier MD [facility] [place] [address] (Amado quick) 03/18/2022 Office Visit Neurology Donovan Mayer MD [facility] NEUROLOGY DEPT. [place] [address] (Amado quick) 04/24/2022 Appointment Hematology and Oncology 04/24/2022 Office Visit Hematology and Oncology Renea Navarro MD [facility] er HEMATOLOGY/ONCOL CLAUDE DEPT. [place], [place] [address] (Wo rk) documented as of this encounter Procedures Procedure Name Priority Date/Time Associated Diagnosis Comme nts NON-LEAD PHARMACY TECHNICIAN FINAL REPORT Routine 12/13/2019 3:24 Resu lts for this PM EDT procedure are i n the results section. CYTOPATHOLOGY Routine 12/13/2019 3:24 Renal angiomyolipoma Res ults for this NON-GYNECOLOGICAL PM EDT procedure are in the results section. HC URINALYSIS ROUTINE Routine 12/13/2019 3:23 Renal angiomyoli liz Results for this PM EDT procedure are i n the results section. documented in this encounter Results (ABNORMAL) CT Urogram (12/31/2019 12:45 PM EDT) Anatomical Region Laterality Modality Abdomen, Pelvis Computed Tomography Specimen (Source) Anatomical Location Collection Method / Collectio n Time Received Time / Laterality Volume Impressions 12/31/2019 3:34 PM EDT 1. ??Interval increase in size of the exophytic right renal angiomyolipoma, now measuring 4.1 cm in greatest dimension ( previously measuring 3.3 cm). 2. ??Bilateral nonobstructing nephrolith iasis. ??No hydronephrosis or hydroureter. 3. ??Normal appearance of the collecting systems and urinary bladder. 4. ??Unexpected Finding: Interval increa se in borderline retroperitoneal lymphadenopathy. ??This may be reactive, however, an indolent lymphoproliferative disorder is not excluded. ??Short-term C T of the abdomen and pelvis, possibly in 6 months, is recommended to ensure stabi lity. I have personally reviewed the image(s) and the resident's interpretation and agree with the findings, Young Mcdaniel at 12/31/2019 3:34 PM Thank you for letting us participate in the care of this patient. For questions regarding this report, please contact e number below. ? Electronically signed by: Young Mcdaniel [facility] ([phone]), at 12/31/2019 3:34 PM Narrative 12/31/2019 3:34 PM EDT EXAMINATION: CT UROGRAM CLINICAL HISTORY: 69-year-old female wit h gross hematuria. ??History of AML bilaterally. TECHNIQUE: Helical CT of the abdomen and pelvis was performed prior to and following the intravenous administration of contrast. Administered 110.0 ml of OMNIPAQUE 350.00 mg/ml. 3D VR and MIP im ages were reformatted on a separate workstation and reviewed as part of this study. COMPARISON: Comparison is made to multip le prior CT of the abdomen and pelvis examinations, the most recent which is d ated July 22, 2017. FINDINGS: Right kidney and ureter: There is a nono bstructing 4 mm right lower pole renal calculus. ??Angiomyolipoma extending off the lower pole right kidney measuring 4.1 cm in greatest dimension slightly in creased when compared with prior study (previously measuring 3.3 cm in greatest dimension). ??No filling defect or abnormal wall thickening in the collecti ng system. Left kidney and ureter: There are a few punctate nonobstructing left lower pole renal calculus. ??There is a 1.3 cm dalila omyolipoma in the upper pole left kidney, unchanged. ??There is a 2.6 cm ??angiomy olipoma at the lower pole left kidney and is also unchanged. No filling defect or abnormal wall thickening in the collecting system. Urinary bladder: Normal, no calculi, or visible mass. Lower chest: Respiratory motion artifact limits evaluation. ??Within the left within the examination, visualized struc tures within the inferior thorax are unremarkable. Liver: Normal. Bile ducts: Normal. Gallbladder: The gallbladder is surgical ly absent with surgical clips within the gallbladder fossa. Pancreas: Normal. Spleen: Normal. Adrenals: Normal. Vasculature: The aorta is normal in cour se and caliber. ??There is mild infrarenal atherosclerotic calcification of the aorta. ??The origin of the mesenteric and renal arteries are within normal limits. Lymph Nodes: Multiple prominent retroper itoneal lymph nodes, some of which have increased in size when compared to prior study. For example (series 5, image 45 left para-aortic lymph node measuring 11 mm short axis) Bowel: The distal esophagus is unremarka ble. ??The stomach is distended with food stuffs and debris. ??The duodenum is nor mal in course and caliber. ??The small bowel is unremarkable. ??There is a larg e volume of stool throughout the course of the large bowel. ??An appendix, eithe r normal or abnormal is not identified. Peritoneum and mesentery: No ascites, fr ee air, or loculated fluid collection. No mesenteric inflammation. Abdominal wall: Normal. Reproductive organs: The uterus is antev erted and anteflexed. ??Limited evaluation of the adnexa is unremarkable . Osseous structures: Multilevel degenerat patrick changes visualized spine. No aggressive osseous lesions. Resulting Agency Comment Unexpected Finding Maria D Bravo AUTOMOTIVE SALES MANAGER IMG CT ORDERABLES Non-Appeals Coordinator Final Report (12/13/2019 3:24 PM EDT) Component Value Ref Test Analysis Performed At [facility] gist Range Method Time Signature Non-Appeals Coordinator Final [id number] ? Location: [address] [place] [address] The signing pathologist has (i) examined the relevant preparation(s) for the [facility] specimen(s) and (ii) rendered or confirmed the diagnosis(es) . [facility] . ? No n-Appeals Coordinator Final DIAGNOSIS Negative for High Grade Urothelial Carcinoma See discussion. Electronically signed by: ??Kervin WHITLEY, Kenan Rosario Verified: ??12/16/2019 ?Cytopathologist Performed at: ??-[facility] Dept. of Pathology, [place], [place] DISCUSSION Urine, voided: Predominantly squamous cells. Reference: Erasmo DL, ?? Renu DELATORRE, Lin ??DFI. The Maggy System for Reporting Urinary Cytology. [place]: Villalobos; 2016. CLINICAL INFORMATION Specimen Source : Urine, voided Pertinent Clinical Data and Significant Therapy: Hematuria Clinical Impression : Microhematuria Pertinent Radiologic Findings ??: (not provided) Gross Description: Received ??fresh, approximately 10 mL total volu me of ?? clear, yellow fluid. Total Preparation: Liquid-Based Prep 1. Specimen (Source) Anatomical Collection Method Collection Time Re ceived Time Location / / Volume Laterality 12/13/2019 3:24 PM EDT Coleman Du MD PATHOLOGY/CYTOLOGY ORDERABLE S Performing Organization Address City/[facility]/[place] [address] Cytopathology Non-Gynecological (12/13/2019 3:24 PM EDT) Specimen Anatomical Collection Method Collection Time Receive d Time (Source) Location / / Volume Laterality AP Specimen 12/13/2019 3:24 PM 0 3:24 EDT PM EDT Narrative [facility] - 12/13/2019 3:24 PM EDT Specimen requisition ordered. ??Separate Pathology report to follow Coleman Du MD PATHOLOGY/CYTOLOGY ORDERABLE S Performing Organization Address City/[facility]/[place] [address] (ABNORMAL) _Urinalysis with microscopic (12/13/2019 3:23 PM EDT) [facility] Method Time Signature Glucose UA Negative Negative [facility] Protein UA Negative Negative [facility] mg/dL [facility] Bilirubin UA Negative Negative [facility] mg/dL [facility] Comment: Clinical correlation required for positi ve Urine Bilirubin results as false positive may occur with some drugs and d rug related products. If a false positive is suspected a serum total bili tolentino should be considered if clinically indicated. Urobilinogen UA Normal Normal mg/dL [facility] pH UA 6.0 5.0 - 8.0 [facility] Blood UA Small (A) Negative mg/dL [facility] Ketones UA Negative Negative mg/dL [facility] Nitrite UA Negative Negative [facility] Leukocytes UA Trace (A) Negative [facility] Appearance UA Clear Clear [facility] Spec [place] UA 1.014 1.006 - 1.030 [facility] Color UA Yellow Yellow [facility] RBC UA 1 0 - 4 /HPF [facility] WBC UA 1 0 - 5 /HPF [facility] Squam Epith UA 1 <=4 /HPF [facility] Specimen Anatomical Collection Method Collection Time Receive d Time (Source) Location / / Volume Laterality Urine specimen 12/13/2019 3:23 PM 020 4:09 (specimen) EDT PM EDT Resulting Agency Comment Spec In Lab Coleman Du MD URINE ORDERABLES Performing Organization Address City/State/[place] [address] documented in this encounter Visit Diagnoses Diagnosis Renal angiomyolipoma Benign neoplasm of kidney, except pelvis Gross hematuria Renal angiomyolipoma Benign neoplasm of kidney, except pelvis documented in this encounter Care Teams Machine Operators Relationship Specialty Start Date End Date Ingrid Espinosa APRN PCP - General Internal Medicine 07/28/[address] [facility] [place] [address] [place] [address] documented as of this encounter
--- OUTSIDE RECORDS SUMMARY | 2021-12-21 00:34 | XMS_ITS | Encounter Summary ---
:1950 Author Organization [facility] [place] [address] Care Team Providers Name Role Phone Ingrid Espinosa SUZANNE Primary Care Provider Encounter Details Date Type Department Care Team Description 09/29/2019 TH Visit Hematology and HADLEY Navarro (chronic (TeleHealth) Oncology at [facility] MD Virgilio lymphocytic leukemia) [facility] Dr Diaz DC HEMATOLOGY/ONCOLO [id number] GY DEPT. [phone] [place], [place] [address] Social History Tobacco Use Types [...] documented as of this encounter Progress Notes Virgilio Navarro MD - 09/29/2019 2:30 PM EDT Images from the original note were not included. HEMATOLOGY TELEHEALTH VISIT NOTE during COVID19 pandemic REASON FOR VISIT: Saundra Blanton is a 69 y.o. female referred by Ingrid Espinosa APRN for f/up for CLL. PROBLEM LIST: 1) CLL: ?? Presentation:Incidentally noted to have inguinal and para aortic TIAN on MRI performed for back pain which was confirmed on f/up CT. F/up CBC on 09/24/17 revealed WBC of 20.5, with 84% lymphocytes (ALCof 17.4), Hgb of 14.8, MCV: 90, Plt count: 159. 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 Follows with Isha Lutz, [facility], at [facility] and with Suri Newton APRN at [facility] ?? EGD: 06/30/18: Notable for medium-sized hiatal hernia, multiple gastric polyps. Biopsied. Path: fundic gland polyps. ?? Colonoscopy : 06/30/18: Diverticulosis in the sigmoid colon and in the descending colon ; Internalhemorrhoids ?? NM octreoscan: 06/16/18: No evidence of disease. ?? Saw Dr. Rodriguez at [facility] on 01/13/19 who felt that she does not need routine surveillance, either for the carcinoid or for the fundic gland polyps. 3. HTN Hypothyroidism 5. H/o DVT Provoked LLE DVT post- after 1 month bedrest and , 1986. Treated for a number of years per pt. R popliteal and posterior tibial DVT 2005. Repeat U/S OSH 2006 normal. 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 Stopped in 2011 Seen at [facility] - Testing was negative for an underlying inherited or acquired disorder of coagulation ?? 6. Renal angiomyolipomas, follows with Urology at [facility], Dr. Du 7. Hyperlipidemia 8. Dysplastic nevus resected from left thigh in 02/2018. Follows with Dermatology at [facility] 9. Colonoscopy 06/30/18 - Impression:??- The entire examined colon is normal. Biopsied. ?- The examined portion of the ileum was normal. ?- Diverticulosis in the sigmoid colon and in the descending colon. ?- Internal hemorrhoids. Path - Random colon, biopsy: - Lymphocytic colitis. 10. Lumbar radiculopathy 11.Peripheral neuropathy in LE related to disc disease 12. GERD INTERIM HISTORY: Saundra Blanton is a 69 y.o. female with PMH of carcinoid tumor of stomach, bilateral angiomyolipomas,being followed by urology at [facility], presenting for f/up for CLL. Ms. Blanton reports doing well overall since last seen. -She switched to cetrizine from loratidine for allergies and that is helping. No other changes in her meds Had sinusitis in mid july and received doxycycline. No other infections since last seen - No B symptoms; - No lumps and bumps that she noticed since last seen. - No recurrent infections - No active cardiac/resp/GI issues ; Rest [...] --Bruising/bleeding/melena: No --Enlarged nodes or other masses: No Skin --Rashes or petechiae: No Neuro - as above Other ROS: All negative MEDICATIONS ??? simvastatin (ZOCOR) 20 mg Tablet ??? fluticasone propionate (FLONASE) 50 mcg/actuation Lamar, Suspension ??? loratadine (CLARITIN) 10 mg Tablet ??? ranitidine (ZANTAC) 150 mg Tablet ??? Bifidobacterium infantis (ALIGN) 4 mg Capsule ??? gabapentin (NEURONTIN) 300 mg Capsule ??? ezetimibe (ZETIA) 10 mg Tablet ??? losartan (COZAAR) 100 mg Tablet ??? colestipol (COLESTID) 1 gram Tablet ??? acetaminophen/diphenhydramine (TYLENOL PM ORAL) ??? melatonin 3 mg Tablet ??? cholecalciferol, Vitamin D3, 1,000 unit Tablet [...] Not on file Occupational History ??? 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 Financial resource strain: [...] file Gets together: Not on file Attends scientology service: Not on file Active member of [...] Social History Narrative ??? 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 [facility] Contact Permission:?? OK to leave message on machine. ?? FAMILY HISTORY Family History Problem Relation Age of Onset ??? Heart Disease Mother ??? Arthritis Mother ??? Diabetes Mother ??? Hypertension Mother ??? Hyperlipidemia Mother ??? Heart Disease Father ??? Arthritis Father ??? Chronic Obstructive Pulmonary Disease Father ??? Hyperlipidemia Father ??? Arthritis Sister ??? Depression Brother ?? One daughter: she has Silva Danlos syn; PHYSICAL EXAM VITAL SIGNS: There were no vitals taken for this visit. Exam not performed as this is telehealth visit. LABORATORY Recent Results (from the past 72 hour(s)) CBC (with Diff) Result Value Ref Range WBC 42.85 (ExtHH) 4.4 - 10.8 Hemoglobin 14.3 12.0 - 15.5 Hematocrit 43.9 36.0 - 46.0 Platelets 135 130 - 400 Neutr Abs (ANC) 3.77 1.2 - 6.7 Lymphocyte Abs 37.45 (EXTERNAL/ABN) 1.2 - 3.4 Comprehensive metabolic panel (non-fasting) Result Value Ref Range Glucose Lvl 103 74 - 106 BUN 11 7 - 18 Creatinine 0.83 0.55 - 1.02 eGFR >=60.00 Sodium 142 136 - 145 Potassium 3.9 3.5 - 5.1 Chloride 106 98 - 107 CO2 30 21.0 - 32.0 Calcium 9.7 8.5 - 10.1 Total Protein 6.9 6.4 - 8.2 Albumin 4.0 3.4 - 5.0 Total Bilirubin 0.3 0.2 - 1.0 Alk Phos 38 46 - 116 AST 24 15 - 37 ALT 27 15 - 59 Lactate Dehydrogenase Result Value Ref Range LDH 212 81 - 234 Ref. Range 07/15/2018 12:54 12/09/2018 14:40 03/24/2019 13:43 06/23/2019 13:30 09/28/2019 16:04 Lymphocytes Abs Latest Ref Range: 0.9 - 3.2 x10(3)/mcL 31.5 (H) 31.4 (H) 34.2 (H) 34.6 (H) ASSESSMENT & PLANS: # CLL, stage I : Clinically Ms. Blanton remains asymptomatic with no constitutional or B symptoms. Exam not performed today as this TOV b'se of COVID19 pandemic. I reviewed the recent labs with her. : H&H and platelets are normal; ALC 34.2k today, overall stable compared to last visit in Jun, 2019, with doubling time of > 12m. LDH is normal today. I reviewed the indications to initiate treatment for CLL with Ms. Blanton and she does not have any indication now. So, we will continue watch and wait approach. I will see her in 3-4 months with rpt CBC,CMP, LDH, or sooner as needed. # Hypogammaglobulinemia: IgG normal in Jun, 2019. Will recheck at the beginning of winter. # b/ Angiomyolipomas : being followed by urology; Total time spent for this visit 17 mts. I reviewed my impression and recommendations with Saundra Blanton and answered all the questions to her satisfaction. she understands the plan, and knows that she can contact us at any time should any new symptoms, concerns or questions arise. Virgilio Navarro MD [facility] CC: Ingrid Espinosa APRN documented in this encounter Plan of Treatment Upcoming Encounters Date Type Specialty Care Team Description 03/06/2022 Office Visit Cardiology Lizeth Frazier MD [facility] er [place], [place] [address] (Wo rk) 03/18/2022 Office Visit Neurology Donovan Mayer MD [facility] NEUROLOGY DEPT. [place], [place] [address] (Wo rk) 04/24/2022 Appointment Hematology and Oncology 04/24/2022 Office Visit Hematology and Oncology Renea Navarro MD [facility] HEMATOLOGY/ONCOL [place] DEPT. [place], [place] [address] (Wo rk) documented as of this encounter Visit Diagnoses Diagnosis CLL (chronic lymphocytic leukemia) Chronic lymphoid leukemia, without menti on of having achieved remission documented in this encounter Care Teams Chief Recordist Relationship Specialty Start Date End Date Ingrid Espinosa APRN PCP - General Internal Medicine 07/28/[address] [place], [place] [address] [place] [address] documented as of this encounter
--- OUTSIDE RECORDS SUMMARY | 2021-12-21 00:34 | XMS_ITS | Encounter Summary ---
:1950 Author Organization [facility] Address [address] [place] [address] Care Team Providers Name Role Phone Ingrid Espinosa APRN Primary Care Provider Reason for Visit Reason Comments Right Hip Pain Consultation (Routine) - Closed Specialty Diagnoses / Procedures Referred By Contact Refer red To Contact Orthopaedics Diagnoses Rt Hip pain, Ingrid Espinosa APRN Tomek, Ivan M, MD [address] [place] [id number] Referral ID Status Reason Start Date Expiration Date Visits Requ ested Visits Authorized [id number] Closed 05/18/2019 05/17/2020 1 1 Encounter Details Date Type Department Care Team Description 07/05/2019 Office Visit Orthopaedics at [facility]y osteoarthritis Roman Reddy MD of both hips [address] [place] [address] [phone] [place] [address] Social History Tobacco Use Types Packs/Day Years [...] - Inhaled Oxygen Concentration - - Weight 106.6 kg (235 lb) 07/05/2019 3:38 PM EST Height 175.3 cm (5' 9) 07/05/2019 3:38 PM EST Body Mass Index 34.7 07/05/2019 3:38 PM EST documented in this encounter Patient Instructions Patient InstructionsTomekMoody MD - 07/05/2019 3:30 PM EST Saundra Blanton returns for follow-up today, principal complaint of right hip pain although she tellsme the pain is episodic, does not bother her all the time, and is not yet significantly impacting her quality of life. At times she will get twinges of discomfort but she has been able to snowshoe thisyear, she tends to walk with a single trekking pole and overall feels like her function is quite good. No pain at all in the left hip at this time. Radiographs were reviewed with her today and these show moderate arthritic changes at the right hip with superomedial joint space loss and some marginal osteophytes. Similar but less severe changes are seen in the left hip. Bone density at least radiographically appears to be good. Examination today reveals mildly restricted range of motion in both hips,somewhat more on the right side than the left. Knee examination is grossly normal. She is wearing a right ankle Amara brace for sequelae of previous disc herniations including a dropfoot. At this point she is doing well. She knows that if her symptoms worsen in the right hip she can contact us. We did at one time have her on meloxicam but she had to discontinue because of gastrointestinal problems. Other nonoperative options for the right hip at this point might include cortisone or Orthovisc injections which we could certainly arrange for in the office if they ever became necessary. documented in this encounter Progress Notes Moody Salcido MD - 07/05/2019 3:30 PM EST Chief Complaint: Chief Complaint Patient presents with ??? Right Hip Pain PCP: Ingrid Espinosa APRN This patient presents to clinic for orthopedic consultation at the request of Ingrid Espinosa APRN [address] [place] [address] for evaluation of hip pain HPI: Saundra Blanton is a 69 y.o. year old female being seen today to discuss pain of the anterior, lateral and posterior aspect of the right hip(S) including the groin, thigh and knee . She states the hip issue began 6 months ago. The patient reports the hip complaint occurred gradually with no history of injury. He reports putting on socks and shoes, climbing stairs, getting up from a chair, laying on it at night , prolonged walking , sitting and getting in and out of the car aggravate her hip complaint. She also reports changes in sensation in the right leg, decreased walking tolerance , instability , right leg weakness , night pain and stiffness in association to her hip complaint. She does endorse a history of DVT/PE or clotting disorder. Lower left leg back of the calf, September 1986 The patient has tried the following treatments: Supportive: Brace/Wrap: no Ice/Heat: no Rest/Elevation:no Medications: Gabapentin with slight improvement . Physical Therapy : no Joint Injections: no Imaging: right hip X-ray series were performed on 07/05/2019 at [facility] The imaging was available and reviewed in clinic with the patient. The findings are documented in the physical exam below. REVIEW OF SYMPTOMS: Constitutional: Denies fever, chills, fatigue Cardiovascular: Denies chest pain Respiratory: Denies shortness of breath Gastrointestinal: Denies nausea, vomiting, diarrhea, constipation or abdominal pain Neurovascular:Admits numbness or tingling Musculoskeletal: Admits slight discomfort in the right hip Psychiatric: Mood and affect appropriate [facility] Visit 07/05/2019 PROMIS-10 General Health Very Good PROMIS-10 Quality of Life Very Good PROMIS-10 Physical Health Very Good PROMIS-10 Mental Health Excellent PROMIS-10 Social Activity Very Good PROMIS-10 Everyday Activities Mostly PROMIS-10 Pain 3 PROMIS-10 Fatigue Mild PROMIS-10 Social Roles Very Good PROMIS-10 Anxious or Depressed Rarely PROMIS PHYSICAL HEALTH SCORE 50.8 PROMIS MENTAL HEALTH SCORE 56 PHYSICAL EXAM: Ht 175.3 cm (5' 9) Wt 106.6 kg (235 lb) BMI 34.70 kg/m?? Constitutional : alert, in no acute distress, well-developed, well-nourished, well-groomed, body habitus normal Head/Face : Atraumatic, normocephalic General: alert and oriented. She appears in no acute discomfort and is resting comfortably in a chair in the exam room. Lumbar/Pelvis: Full ROM of lumbar spine in all planes, no point tenderness, no SI joint tenderness Gait/Station: Normal Gait with use of trekking pole, Station normal . Right lower extremity : Hip: Inspection/Palpation: no tenderness to palpation, no greater trochanteric tenderness, no effusion, no warmth, no swelling Range of Motion: FF 0- 105 degrees, ER 40 degrees, IR 20 degrees, ABD 30 degrees Strength: strength 5/5 Stability: no joint instability Test/Signs Thigh: no tenderness, no ecchymosis, no swelling Knee : Full ROM with no tenderness to palpation Lower leg: No tenderness to palpation, no swelling, no ecchymosis Left lower extremity : Hip: Inspection/Palpation: no tenderness to palpation, no greater trochanteric tenderness, no effusion, no warmth, no swelling Range of Motion: FF 0- 105 degrees, ER 30 degrees, IR 20 degrees, ABD 30 degrees Strength: strength 5/5 Stability: no joint instability Test/Signs Thigh: no tenderness, no ecchymosis, no swelling Knee : Full ROM with no tenderness to palpation Lower leg: No tenderness to palpation, no swelling, no ecchymosis Muscle tone: tone normal Leg Length Discrepancy: No Skin: no erythema present, no ecchymosis present, no signs of skin lesions or infection Sensation: :sensation to light touch intact in lower extremities, neurovascularly intact Mental status Examination: grossly oriented to person, place and time Mood and Affect: mood normal, affect appropriate Impression/Plan: Saundra Blanton returns for follow-up today, principal complaint of right hip pain although she tells me the pain is episodic, does not bother her all the time, and is not yet significantly impacting her quality of life. At times she will get twinges of discomfort but she has been ableto snowshoe this year, she tends to walk with a single trekking pole and overall feels like her function is quite good. No pain at all in the left hip at this time. Radiographs were reviewed with her today and these show moderate arthritic changes at the right hip with superomedial joint space loss and some marginal osteophytes. Similar but less severe changes are seen in the left hip. Bone density at least radiographically appears to be good. Examination today reveals mildly restricted range of motion in both hips, somewhat more on the right side than the left. Knee examination is grossly normal. She is wearing a right ankle Amara brace for sequelae of previous disc herniations including a dropfoot. At this point she is doing well. She knows that if her symptoms worsen in the right hip she can contact us. We did at one time have her on meloxicam but she had to discontinue because of gastrointestinal problems. Other nonoperative options for the right hip at this point might include cortisone or Orthovisc injections which we could certainly arrange for in the office if they ever became necessary. I Melodie Gomez am acting as scribe for Moody Salcido MD. All work documented was performed by Moody Salcido MD. IMoody MD personally performed the services described in this documentation, as scribed by Melodie Gomez is both accurate and complete. documented in this encounter Plan of Treatment Upcoming Encounters Date Type Specialty Care Team Description 03/06/2022 Office Visit Cardiology Lizeth Frazier MD [facility] [place] [address] [place], [place] [address] (Wo rk) 03/18/2022 Office Visit Neurology Donovan Mayer MD [facility] NEUROLOGY DEPT. [place], [place] [address] (Wo rk) 04/24/2022 Appointment Hematology and Oncology 04/24/2022 Office Visit Hematology and Oncology YeRenea jacobo MD [facility] HEMATOLOGY/ONCOL CLAUDE DEPT. [place], [place] [address] (Wo rk) documented as of this encounter Visit Diagnoses Diagnosis Primary osteoarthritis of both hips Primary localized osteoarthrosis, pelvic region and thigh documented in this encounter Care Teams Truck And Transport Mechanic Relationship Specialty Start Date End Date Ingrid Espinosa APRN PCP - General Internal Medicine 07/28/[address] [place] [address] documented as of this encounter
--- OUTSIDE RECORDS SUMMARY | 2021-12-21 00:34 | XMS_ITS | Encounter Summary ---
:1950 Author Organization [facility] [place] [address] Care Team Providers Name Role Phone Ingrid Espinosa Uriel PALACIOS Primary Care Provider Encounter Details Date Type Department Care Team Description 12/13/2019 [address] [facility] Vandana Barrios, [place] [address] Social History Tobacco Use Types Packs/Day [...] this encounter Miscellaneous Notes Telephone Encounter - Vandana Barrios RN - 12/13/2019 3:27 PM EDT Outgoing call to patient in advance of her appointment tomorrow with Dr. Harper. New patient being seen after initially presenting [facility] on [facility] - with new diagnosis of A-fib. Started on Hosea and Metoprolol succinate- 25 mg once daily . She states she did not have Rogers placed as mentioned in ED notes. She has no urgent concerns at this time and intends to be at her appointment tomorrow with Dr. Harper. Vandana Barrios RN, BSN Ambulatory Cardiology Department documented in this encounter Plan of Treatment Upcoming Encounters Date Type Specialty Care Team Description 03/06/2022 Office Visit Cardiology Lizeth Frazier MD [facility] er [place], [place] [address] (Wo rk) 03/18/2022 Office Visit Neurology Donovan Mayer MD [facility] NEUROLOGY DEPT. [place], [place] [address] (Wo rk) 04/24/2022 Appointment Hematology and Oncology 04/24/2022 Office Visit Hematology and Oncology Renea Navarro MD [facility] HEMATOLOGY/ONCOL [place] DEPT. [place], [place] [address] (Wo rk) documented as of this encounter Visit Diagnoses Not on filedocumented in this encounter Care Teams Casino Banker Relationship Specialty Start Date End Date Ingrid Espinosa APRN PCP - General Internal Medicine 07/28/17 [address] [place] [address] documented as of this encounter
--- OUTSIDE RECORDS SUMMARY | 2021-12-21 00:34 | XMS_ITS | Encounter Summary ---
:1950 Author Organization [facility] [place] [address] Care Team Providers Name Role Phone Ingrid Espinosa Uriel PALACIOS Primary Care Provider Encounter Details Date Type Department Care Team Description 12/31/2019 Orders Only Urology at [facility] Maria D Gunter, Microhematuria [facility] [place] [address] [facility] [phone] UROLOGY DEPT. [place], [place] [address] (Wo rk) Social History Tobacco [...] 03/06/2022 Office Visit Cardiology Lizeth Frazier MD [facility] [address] [place], [place] [address] (Wo rk) 03/18/2022 Office Visit Neurology Donovan Mayer MD [facility] ER NEUROLOGY DEPT. [place], [place] [address] (Wo rk) 04/24/2022 Appointment Hematology and Oncology 04/24/2022 Office Visit Hematology and Oncology Renea Navarro MD [facility] HEMATOLOGY/ONCOL OGY DEPT. [place], [place] [address] (Wo rk) documented as of this encounter Results Creatinine (12/31/2019 11:02 AM EDT) athologist Signature Creatinine 0.71 0.70 - [facility] 1.[facility] mg/dL [facility] Estimated GFR 86 >=60 [facility] mL/min/1.7 [facility] 3 m?? HOSPITAL [facility] Comment: The eGFR was calculated using the CKD-EP I equation. As with all creatinine based estimates of kidney function, eGFR values calculated with the CKD-EPI equation are not accurate in patients wi th acute kidney failure, extremes of body mass or the acutely ill. [email or web address] eGFR 100 >=60 mL/min/1.73 m?? [facility] Comment: The eGFR was calculated using the CKD-EP I equation. As with all creatinine based estimates of kidney function, eGFR values calculated with the CKD-EPI equation are not accurate in patients wi th acute kidney failure, extremes of body mass or the acutely ill. [email or web address] Specimen Anatomical Collection Method Collection Time Receive d Time (Source) Location / / Volume Laterality Blood specimen 12/31/2019 11:02 0 (specimen) AM EDT 11:10 AM EDT Resulting Agency Comment Spec In Lab Maria D Bravo APRN CHEMISTRY ORDERABLES Performing Organization Address City/State/[place] [address] documented in this encounter Visit Diagnoses Diagnosis Microhematuria Microscopic hematuria documented in this encounter Care Teams Production Worker Relationship Specialty Start Date End Date Ingrid Espinosa APRN PCP - General Internal Medicine 07/28/17 [address] [place] [address] documented as of this encounter
--- OUTSIDE RECORDS SUMMARY | 2021-12-21 00:34 | XMS_ITS | Encounter Summary ---
:1950 [address] [facility] [place] [address] Care Team Providers Name Role Phone Francisca, Ingridcresencio Trevino APRN Primary Care Provider Reason for Referral Diagnostic Test (Routine) - Closed Specialty Diagnoses / Procedures Referred By Contact Refer red To Contact Radiology Diagnoses Renal angiomyolipoma Maria D Gunter [facility] Rad Ct Scan Procedures CT Urogram H[employer]ING J[employer]TER [facility] [place] [address] [place] [address] Referral ID Status Reason Start Date Expiration Date Visits V isits Requested Authorized [id number] Closed Specialty 12/13/2019 06/14/2021 1 1 Service Requested Reason for Visit Diagnostic Test (Routine) - Closed Specialty Diagnoses / Procedures Referred By Contact Refer red To Contact Radiology Diagnoses Renal angiomyolipoma Maria D Gunter [facility] Rad Ct Scan Procedures CT Urogram HONING J[employer]TER [facility] [place] [address] [place] [address] Referral ID Status Reason Start Date Expiration Date Visits V isits Requested Authorized [id number] Closed Specialty 12/13/2019 06/14/2021 1 1 Service Requested Encounter Details Date Type Department Care Team Description 12/31/[address] Scan at [facility] Milly Bravo, Renal angiomyolipoma [facility] [address] [place], [place] CENTER [id number] UROLOGY DEPT. [phone] [place] [address] Social History Tobacco Use Types Packs/Day Years [...] 2019 mL Auto-Injector the muscle as needed. metoprolol succinate XL Take 25 mg by mouth 0 (Toprol-XL) 25 mg Tablet daily. Sustained Release 24 hr Xarelto 20 mg Tablet Take 20 mg by mouth 0 2019 daily. cetirizine (ZyrTEC) 10 Take 10 mg by mouth 0 mg Tablet daily. fluticasone propionate 1 spray by Each Nare 0 (FLONASE) 50 route daily as mcg/actuation [place], needed. Suspension Bifidobacterium infantis Take by mouth. [...] 03/06/2022 Office Visit Cardiology Lizeth Frazier MD [facility] [place] [address] (Wo rk) 03/18/2022 Office Visit Neurology Donovan Mayer MD [facility] NEUROLOGY DEPT. [place], [place] [address] (Wo rk) 04/24/2022 Appointment Hematology and Oncology 04/24/2022 Office Visit Hematology and Oncology Renea Navarro MD [facility] er HEMATOLOGY/ONCOL CALIY DEPT. [place], [place] [address] ( rk) documented as of this encounter Procedures Procedure Name Priority Date/Time Associated Diagnosis Comme nts CT SCAN UROLOGY Routine 12/31/2019 12:45 PM Renal angiomyolipo ma Results for this EDT procedure are i [...] below. ? Electronically signed by: Young Mcdaniel [facility] ([phone]), at 12/31/2019 3:34 PM Narrative 12/31/2019 3:34 [...] Agency Comment Unexpected Finding Maria D Bravo HONING J[employer]TER IMG CT ORDERABLES documented in this encounter Visit Diagnoses Diagnosis Renal angiomyolipoma Benign neoplasm of kidney, except pelvis documented in this encounter Administered Medications Inactive Administered Medications - up to 3 most recent administrations Medication Order MAR Action Action Date Dose Rate Site furosemide (LASIX) injection 10 mg Given 12/31/2019 12:34 PM EDT 10 mg 10 mg, Intravenous, ONCE PRN, 1 dose, Starting on Fri12/31/19 at 1209, Until Fri12/31/19 at 1234, FOR MRI PATIENTS - Dose is .02mg/kg based on patients weight, Radiology Protocol Medication, Routine iohexoL (OMNIPAQUE) 350 mg/mL solution Given 12/31/2019 12:42 PM EDT 110 mLs 0-200 mL 0-200 mL, Intravenous, ONCE PRN, 1 dose, Starting on Fri12/31/19 at 1242, Until Fri12/31/19 at 1242, Per Protocol, Warning Vesicant/Irritant Medication , Radiology Contrast, Routine documented in this encounter Care Teams Operating Room Assistant Relationship Specialty Start Date End Date Ingrid Espinosa APRN PCP - General Internal Medicine 07/28/[address] [place] [address] documented as of this encounter
--- OUTSIDE RECORDS SUMMARY | 2021-12-21 00:34 | XMS_ITS | Encounter Summary ---
:1950 Author Organization [facility] [place] [address] Care Team Providers Name Role Phone Guillermina Espinosayce Uriel PALACIOS Primary Care Provider Reason for Visit Reason Comments Follow-up Encounter Details Date Type Department Care Team Description 02/04/2020 Office Visit Hematology and Ramon, CLL (chronic Oncology at [facility] MD Virgilio lymphocytic leukemia) [facility] [address] [place], [place] HEMATOLOGY/ONCOLOG [address] Y DEPT. [phone] [place], [place] [address] Social History Tobacco Use Types [...] Sign Reading Time Taken Comments Blood Pressure 122/58 02/04/2020 2:04 PM EDT Pulse 66 02/04/2020 2:04 PM EDT Temperature 37 ??C (98.6 ??F) 02/04/2020 2:04 PM EDT Respiratory Rate 02/04/2020 2:04 PM EDT Oxygen Saturation 99% 02/04/2020 2:04 PM EDT Inhaled Oxygen Concentration - - Weight 101.1 kg (222 lb 12.8 oz) 02/04/2020 2:04 PM EDT Height 175.3 cm (5' 9.02) 02/04/2020 2:04 PM EDT Body Mass Index 32.89 02/04/2020 2:04 PM EDT documented in this encounter Progress Notes Virgilio Navarro MD - 02/04/2020 2:30 PM EDT Images from the original [...] Plt count: 159. 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 Follows with Isha Lutz, [facility] surgical associates, at [facility] and with Suri Newton APRN at [facility] ?? EGD: 06/30/18: Notable for medium-sized hiatal hernia, multiple gastric polyps. Biopsied. Path: fundic gland polyps. ?? Colonoscopy : 06/30/18: Diverticulosis in the sigmoid colon and in the descending colon ; Internalhemorrhoids ?? NM octreoscan: 06/16/18: No evidence of disease. ?? Saw Dr. Rodriguez at [facility] on 01/13/19 who felt that she does not need routine surveillance, either for the carcinoid or for the fundic gland polyps. 3. HTN Hypothyroidism 5. H/o DVT Provoked LLE DVT post- after 1 month bedrest and , 1986. Treated for a number of years per pt. R popliteal and posterior tibial DVT 2005. Repeat U/S OSH 2006 normal. joint terminal attack controller anticoagulation since 2005. Stopped in 2011 Seen at [facility] - Testing was negative for an underlying inherited or acquired disorder of coagulation ?? 6. Renal angiomyolipomas, follows with Urology at [facility], Dr. Du 7. Hyperlipidemia 8. Dysplastic nevus resected from left thigh in 02/2018. Follows with Dermatology at [facility] 9. Colonoscopy 06/30/18 - Impression:??- The entire [...] bilateral angiomyolipomas,being followed by urology at [facility], presenting for f/up for CLL. Since last seen, she reports doing well with no new issues. She can walk up to 2 miles easily. No B symptoms; no infections since last seen; - No lumps and bumps that she [...] above Other ROS: All negative MEDICATIONS ??? metoprolol succinate XL (Toprol-XL) 25 mg Tablet Sustained Release 24 hr ??? Xarelto 20 mg Tablet ??? cetirizine (ZyrTEC) 10 mg Tablet ??? simvastatin (ZOCOR) 20 mg Tablet ??? fluticasone propionate (FLONASE) 50 mcg/actuation [place], Suspension ??? Bifidobacterium infantis (ALIGN) 4 mg Capsule ??? gabapentin (NEURONTIN) 300 mg Capsule ??? ezetimibe (ZETIA) 10 mg Tablet ??? losartan (COZAAR) 100 mg Tablet ??? colestipol (COLESTID) 1 gram Tablet ??? acetaminophen/diphenhydramine (TYLENOL PM ORAL) ??? melatonin 3 mg Tablet ??? cholecalciferol, Vitamin D3, 1,000 unit Tablet ??? Calcium 500 mg Tab ??? nystatin (MYCOSTATIN) powder ??? acetaminophen (TYLENOL) 500 mg tablet ??? multivitamin (THERAGRAN) tablet ??? OXYGEN-AIR DELIVERY SYSTEMS (HORIZON NASAL CPAP SYSTEM MISC) ??? levothyroxine (SYNTHROID) 25 mcg tablet ??? EPINEPHrine 0.3 mg/0.3 mL Auto-Injector ??? calcium carbonate (Tums) 200 mg calcium (500 mg) Tablet, Chewable ??? ketoconazole (NIZORAL) 2 % cream ??? desonide (DESOWEN) 0.05 % cream ??? loperamide (IMMODIUM) 2 mg tablet ALLERGIES/ADR Allergies Allergen Reactions ??? Latex [...] Not on file Occupational History ??? 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 Financial resource strain: Not on file ??? Food insecurity Worry: Not on file Inability: Not on file ??? Transportation needs Medical: Not on file Non-medical: Not on file Tobacco Use ??? Smoking status: Never Smoker ??? Smokeless tobacco: Never Used Substance and Sexual Activity ??? Alcohol use: Yes Alcohol/week: 1.0 standard drinks Types: 1 Glasses of wine per week Frequency: Never ??? Drug use: No Comment: denies illicit drug use or abuse ??? Sexual activity: Not on file Comment: deferred Lifestyle ??? Physical activity Days per week: Not on file Minutes per session: Not on file ??? Stress: Not on file Relationships ??? Social connections Talks on phone: Not on file Gets together: Not on file Attends bahai service: Not on file Active member of [...] ??? 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 [facility] Contact Permission:?? OK to leave [...] syn; PHYSICAL EXAM VITAL SIGNS: Blood pressure 122/58, pulse 66, temperature 37 ??C (98.6 ??F), temperature source Temporal, resp. rate 18, height 175.3 cm (5' 9.02), weight 101.1 kg (222 lb 12.8 oz), SpO2 99 %. ECOG PS: 1 GENERAL: Saundra Blanton is a well-appearing 69 y.o. female in no acute distress. HEENT: [...] Right leg on supporting brace; SKIN: No rashes, bruises or petechiae. LYMPH:mal No palpable cervical/axillary/inguinal lymphadenopathy. NEUROLOGICAL: Alert and oriented to person, place and time; No focal neurological deficits; PSYCHIATRIC: normal affect and mood LABORATORY Recent Results (from the past 72 hour(s)) Lactate Dehydrogenase Result Value Ref Range LDH 232 (H) 110 - 220 unit/L Comprehensive metabolic panel (non-fasting) Result Value Ref Range Glucose Lvl 93 65 - 199 mg/dL BUN 17 8 - 18 mg/dL Creatinine 0.88 0.70 - 1.20 mg/dL Sodium 144 135 - 145 mmol/L Potassium 4.2 3.5 - 5.0 mmol/L Chloride 106 98 - 107 mmol/L CO2 29 22 - 31 mmol/L Anion Gap 9 5 - 15 mmol/L Calcium 10.2 8.5 - 10.5 mg/dL Total Protein 6.7 6.1 - 8.0 gm/dL Albumin 4.3 3.2 - 5.2 gm/dL AST 25 0 - 30 unit/L ALT 14 0 - 30 unit/L Alk Phos 63 35 - 105 unit/L Total Bilirubin 0.3 0.2 - 1.3 mg/dL eGFR 67 >=60 mL/min/1.73 m?? eGFR 77 >=60 mL/min/1.73 m?? Hemogram Result Value Ref Range WBC 55.8 (CRIT) 4.0 - 9.5 x10(3)/mcL RBC 4.52 4.00 - 5.21 x10(6)/mcL Hemoglobin 13.8 11.7 - 15.5 gm/dL Hematocrit 43.3 35.7 - 45.8 % MCV 95.8 (H) 82.6 - 94.4 fL MCH 30.5 27.1 - 32.0 pg MCHC 31.9 31.7 - 35.0 gm/dL Platelets 145 145 - 357 x10(3)/mcL RDWSD 46.8 (H) 37.0 - 46.0 fL RDWCV 13.3 11.5 - 14.1 % MPV 10.9 7.6 - 12.9 fL nRBC % Auto 0.0 % nRBC Abs Auto 0.000 0.000 - 0.000 x10(3)/mcL ASSESSMENT & PLANS: # CLL, stage I : Clinically Ms. Blanton remains asymptomatic. No palpable lymphadenopathy or HSM on exam (had CT a/p in 07/2017 showing mild splenomegaly and retroperitoneal and inguinal lymphadenopathy). I reviewed the labs with her from today: H&H and platelets are normal; ALC increased to ~51k from 37k in Sep, 2019..Rest of the 2 blood cell lines are normal. LDH remain slightly high ~ 230 for thepast year: As ALC is increased significantly compared to 3-4 months ago, we will monitor her closely, She stilldoes not have any indication to initiate therapy. . So, we will continue watch and wait approach. I will see her in 3 months with rpt CBC,CMP, LDH, orsooner as needed. # Hypogammaglobulinemia: IgG normal in 06/2019. . # b/ Angiomyolipomas : being followed by urology; I reviewed my impression and recommendations with Saundra Blanton and answered all the questions to her satisfaction. she understands the plan, and knows that she can contact us at any time should any new symptoms, concerns or questions arise. Virgilio Navarro MD [facility] CC: Ingrid Espinosa APRN documented in this encounter Plan of Treatment Upcoming Encounters Date Type Specialty Care Team Description 03/06/2022 Office Visit Cardiology Lizeth Frazier MD [facility] [address] [place] [address] (Wo rk) 03/18/2022 Office Visit Neurology Donovan Mayer MD [facility] NEUROLOGY DEPT. [place], [place] [address] (Wo rk) 04/24/2022 Appointment Hematology and Oncology 04/24/2022 Office Visit Hematology and Oncology Renea Navarro MD [facility] HEMATOLOGY/ONCOL CALIY DEPT. [place], [place] [address] (Wo rk) documented as of this encounter Visit Diagnoses Diagnosis CLL (chronic lymphocytic leukemia) Chronic lymphoid leukemia, without menti on of having achieved remission documented in this encounter Care Teams Box Printer Relationship Specialty Start Date End Date Ingrid Espinosa APRN PCP - General Internal Medicine 07/28/17 [address] [place] [address] documented as of this encounter
--- OUTSIDE RECORDS SUMMARY | 2021-12-21 00:34 | XMS_ITS | Encounter Summary ---
:1950 Author Organization [facility] [place] [address] Care Team Providers Name Role Phone Ingrid Espinosa SUZANNE Primary Care Provider Encounter Details Date Type Department Care Team Description 01/12/2020 Orders Only Cardiology [facility] [place] [address] Social History Tobacco Use Types Packs/Day [...] Lizeth Frazier MD [facility] er [address] [place] [address] (Wo rk) 03/18/2022 Office Visit Neurology Donovan Mayer MD [facility] NEUROLOGY DEPT. [place], [place] [address] (Wo rk) 04/24/2022 Appointment Hematology and Oncology 04/24/2022 Office Visit Hematology and Oncology Renea Navraro MD [facility] HEMATOLOGY/ONCOL CLAUDE DEPT. [place], [place] [address] (Wo rk) documented as of this encounter Procedures Procedure Name Priority Date/Time Associated Diagnosis Comme nts EKG 12-LEAD Routine 01/12/2020 2:41 PM Results f or this EDT procedure are i n the results section . documented in this encounter Results EKG 12 Lead (01/12/2020 2:41 PM EDT) Component Value Ref Range Test Analysis Performed Pathologis t Method Time At Signature Ventricular rate 78 BPM MUSE SYSTEM Atrial Rate 78 BPM MUSE SYSTEM P-R Interval 228 ms MUSE SYSTEM QRS Duration 78 ms MUSE SYSTEM Q-T Interval 392 ms MUSE SYSTEM QTC Calculated 446 ms MUSE SYSTEM (Bezet) Calculated P [place] 37 degrees MUSE SYSTEM Calculated R [place] 42 degrees MUSE SYSTEM Calculated T [place] 39 degrees MUSE SYSTEM INTERPRETATION Sinus rhythm with 1st degree A-V block MUSE SYSTEM Possible Left atrial enlargement Low voltage QRS Borderline ECG When compared with ECG of 14-DEC-2019 09:40, QT has lengthened Confirmed by MD Ruiz, Onofre ([id number]) on 01/14/2020 8:14:24 AM Specimen Anatomical Collection Method Collection Time Receive d Time (Source) Location / / Volume Laterality 01/12/2020 2:41 PM 0 8:14 EDT AM EDT Unknown ECG ORDERABLES Performing Organization Address City/State/ZIP Code Phon e Number MUSE SYSTEM documented in this encounter Visit Diagnoses Not on filedocumented in this encounter Care Teams State Editor Relationship Specialty Start Date End Date Ingrid Espinosa APRN PCP - General Internal Medicine 07/28/[address] [place] [address] documented as of this encounter
--- OUTSIDE RECORDS SUMMARY | 2021-12-21 00:34 | XMS_ITS | Encounter Summary ---
:1950 Author Organization [facility] [place] [address] Care Team Providers Name Role Phone Ingrid Espinosa SUZANNE Primary Care Provider Encounter Details Date Type Department Care Team Description 12/10/2019 Orders Only Cardiology at [facility] Tashia Jama Atrial fibrillation, [facility] Omar, [place] [address] Social History Tobacco Use Types Packs/Day Years [...] 03/06/2022 Office Visit Cardiology Lizeth Frazier MD [facility] [place] [address] [place], [place] [address] (Amado quick) 03/18/2022 Office Visit Neurology Donovan Mayer MD [facility] ER NEUROLOGY DEPT. [place], [place] [address] (Wo rk) 04/24/2022 Appointment Hematology and Oncology 04/24/2022 Office Visit Hematology and Oncology Renea Navarro MD [facility]OLOG[facility] [place] [place] [address] (Wo rk) documented as of this encounter Visit Diagnoses Diagnosis Atrial fibrillation, unspecified type documented in this encounter Care Teams Food Critic Relationship Specialty Start Date End Date Ingrid Espinosa APRN PCP - General Internal Medicine 07/28/[address] [place] [address] documented as of this encounter
--- OUTSIDE RECORDS SUMMARY | 2021-12-21 00:34 | XMS_ITS | Encounter Summary ---
:1950 Author Organization [facility] [place] [address] Care Team Providers Name Role Phone Guillermina Espinosayce Uriel PALACIOS Primary Care Provider Encounter Details Date Type Department Care Team Description 02/04/2020 Hospital Encounter Hematology and CLL ([facility] lymphocytic leukemia) [place] [address] Social History Tobacco Use Types Packs/Day [...] 0 (FLONASE) 50 route daily as mcg/actuation [place], needed. Suspension Bifidobacterium infantis Take by mouth. [...] 0 tablet mouth daily. OXYGEN-AIR DELIVERY by [facility].(Non-Drug; 0 SYSTEMS (HORIZON NASAL Combo Route) route CPAP SYSTEM MIS) nightly. levothyroxine Take 37.5 mcg by 0 [...] Office Visit Cardiology Martha Frazier MD [facility] er [place], [place] [address] (Wo rk) 03/18/2022 Office Visit Neurology Donovan Mayer MD [facility] NEUROLOGY DEPT. [place], [place] [address] (Wo rk) 04/24/2022 Appointment Hematology and Oncology 04/24/2022 Office Visit Hematology and Oncology Renea Navarro MD [facility] HEMATOLOGY/ONCOL CLAUDE DEPT. [place], [place] [address] (Wo rk) documented as of this encounter Procedures Procedure Name Priority Date/Time Associated Comments Diagnosis SCAN, PERIPHERAL BLOOD Routine 02/04/2020 1:35 PM Results for this EDT procedure are i n the results section. HEMOGRAM Routine 02/04/2020 1:35 PM CLL (chronic Results f or this EDT lymphocytic procedure are i n leukemia) the results section. DIFFERENTIAL, Routine 02/04/2020 1:35 PM CLL (chronic Results for this AUTOMATED EDT lymphocytic procedure are i n leukemia) the results section. HC CBC,PLT & AUTO DIFF Routine 02/04/2020 1:35 PM CLL (chronic EDT lymphocytic leukemia) HC VENIPUNCTURE Routine 02/04/2020 1:35 PM CLL (chronic Result s for this EDT lymphocytic procedure are i n leukemia) the results section. COMPREHENSIVE Routine 02/04/2020 1:35 PM CLL (chronic Results for this METABOLIC PANEL EDT lymphocytic procedure ar e in (NON-FASTING) leukemia) the results section. documented in this encounter Results Scan, Peripheral Blood (02/04/2020 1:35 PM EDT) Analysis Performed At Patho logist Time Signature Plat Estimate Normal [facility] RBC Morphology Normal [facility] Smudge Cells Present [facility] Specimen Anatomical Collection Method Collection Time Receive d Time (Source) Location / / Volume Laterality Blood specimen 02/04/2020 1:35 PM 020 1:44 (specimen) EDT PM EDT Resulting Agency Comment Spec In Lab Virgilio Navarro MD HEMATOLOGY ORDERABLES Performing Organization Address City/State/[place] [address] (ABNORMAL) Differential, Automated (02/04/2020 1:35 PM EDT) [facility] Method Time Signature Neutrophils % 6.2 % [facility] Neutr Abs (ANC) 3.46 1.70 - [facility] 6.10 [facility] x10(3)/[facility] LABORATORY Lymphocytes % 91.7 % [facility] Lymphocytes Abs 51.2 (H) 0.9 - 3.2 [facility] x10(3)/[facility] LABORATORY Monocytes % 1.4 % [facility] Monocyte Abs 0.8 0.3 - 0.9 [facility] x10(3)/[facility] LABORATORY Eosinophils % 0.4 % [facility] Eosinophils Abs 0.2 0.0 - 0.4 [facility] x10(3)/[facility] LABORATORY Basophils % 0.2 % [facility] Basophils Abs 0.1 0.0 - 0.1 [facility] x10(3)/[facility] LABORATORY Immature Gran % 0.10 % [facility] Comment: Immature granulocytes(IG's)percentage an d absolute count will include metamyelocytes, myelocytes, and promyelo cytes. Blood smears from CBCs yielding IG's will be scanned manually for concor dance. If this scan disagrees with the automated IG or if promyelocytes are not ed, a manual differential will be performed. Betty Gran Abs 0.07 (H) 0.00 - 0.04 x10(3)/[facility] LABORATORY Specimen Anatomical Collection Method Collection Time Receive d Time (Source) Location / / Volume Laterality Blood specimen 02/04/2020 1:35 PM 020 1:44 (specimen) EDT PM EDT Resulting Agency Comment Spec In Lab Virgilio Navarro MD HEMATOLOGY ORDERABLES Performing Organization Address City/State/ZIP Code Phon e Number [address] (ABNORMAL) Hemogram (02/04/2020 1:35 PM EDT) [facility] gist Method Time Signature WBC 55.8 4.0 - 9.5 [place] (Critical) x10(3)/[facility] LABORATORY RBC 4.52 4.00 - [place] 5.21 [facility] x10(6)/[facility] LABORATORY Hemoglobin 13.8 11.7 - [place] 15.5 gm/dL [facility] Hematocrit 43.3 35.7 - [place] 45.8 % [facility] MCV 95.8 (H) 82.6 - [place] 94.4 [facility] LABORATORY MCH 30.5 27.1 - [place] 32.0 pg [facility] MCHC 31.9 31.7 - [place] 35.0 gm/dL [facility] Platelets 145 145 - 357 [facility] x10(3)/[facility] LABORATORY RDWSD 46.8 (H) 37.0 - [place] 46.0 [facility] LABORATORY RDWCV 13.3 11.5 - [place] 14.1 % [facility] LABORATORY MPV 10.9 7.6 - 12.9 [facility] LABORATORY nRBC % Auto 0.0 % [facility] nRBC Abs Auto 0.000 0.000 - [facility] [place] 0.000 [facility] x10(3)/[facility] LABORATORY Specimen Anatomical Collection Method Collection Time Receive d Time (Source) Location / / Volume Laterality Blood specimen 02/04/2020 1:35 PM 020 1:44 (specimen) EDT PM EDT Resulting Agency Comment Spec In Lab Virgilio Navarro MD HEMATOLOGY ORDERABLES Performing Organization Address City/State/ZIP Code [place] [address] Comprehensive metabolic panel (non-fasting) (02/04/2020 1:35 PM EDT) athologist Signature Glucose Lvl 93 65 - 199 [facility] mg/dL [facility] Comment: Diabetes: >=200 mg/dL plus symp toms BUN 17 8 - 18 mg/dL [facility] Creatinine 0.88 0.70 - 1.20 mg/dL [facility] Sodium 144 135 - 145 mmol/L [facility] Potassium 4.2 3.5 - 5.0 mmol/L [facility] Comment: Please note: ??Patients with WBC >100,00 0 may have falsely elevated Potassium levels. ??For accurate Potassium quantif ication in these patients send serum separator tube (gold top) for subsequent determinations. ??Contact the Clinical Chemistry Laboratory if there are any qu estions. Chloride 106 98 - 107 mmol/L [facility] CO2 29 22 - 31 mmol/L [facility] Anion Gap 9 5 - 15 mmol/L [facility] Calcium 10.2 8.5 - 10.5 mg/dL [facility] Total Protein 6.7 6.1 - 8.0 gm/dL [facility] Albumin 4.3 3.2 - 5.2 gm/dL [facility] AST 25 0 - 30 unit/L [facility] ALT 14 0 - 30 unit/L [facility] Alk Phos 63 35 - 105 unit/L [facility] Total Bilirubin 0.3 0.2 - 1.3 mg/dL [facility] Estimated GFR 67 >=60 mL/min/1.73 m?? [facility] Comment: The eGFR was calculated using the CKD-EP I equation. As with all creatinine based estimates of kidney function, eGFR values calculated with the CKD-EPI equation are not accurate in patients wi th acute kidney failure, extremes of body mass or the acutely ill. http://[employer]/DHMCnkf eGFR 77 >=60 mL/min/1.73 m?? [facility] Comment: The eGFR was calculated using the CKD-EP I equation. As with all creatinine based estimates of kidney function, eGFR values calculated with the CKD-EPI equation are not accurate in patients wi th acute kidney failure, extremes of body mass or the acutely ill. http://[employer]/DHMCnkf Specimen Anatomical Collection Method Collection Time Receive d Time (Source) Location / / Volume Laterality Blood specimen 02/04/2020 1:35 PM 020 1:44 (specimen) EDT PM EDT Resulting Agency Comment Spec In Lab Virgilio Navarro MD CHEMISTRY ORDERABLES Performing Organization Address City/[facility]/ZIP Code Phon e Number [address] (ABNORMAL) Lactate Dehydrogenase (02/04/2020 1:35 PM EDT) P athologist Signature LDH 232 (H) 110 - 220 [facility] unit/[facility] LABORATORY Specimen Anatomical Collection Method Collection Time Receive d Time (Source) Location / / Volume Laterality Blood specimen 02/04/2020 1:35 PM 020 1:44 (specimen) EDT PM EDT Resulting Agency Comment Spec In Lab Virgilio Navarro MD CHEMISTRY ORDERABLES Performing Organization Address City/[facility]/ZIP Code [place] [address] documented in this encounter Visit Diagnoses Diagnosis CLL (chronic lymphocytic leukemia) Chronic lymphoid leukemia, without menti on of having achieved remission documented in this encounter Care Teams Financial Services Representative Relationship Specialty Start Date End Date Ingrid Espinosa APRN PCP - General Internal Medicine 07/28/[address] [place] [address] documented as of this encounter
--- OUTSIDE RECORDS SUMMARY | 2021-12-21 00:34 | XMS_ITS | Encounter Summary ---
:1950 Author Organization [place] [address] Care Team Providers Name Role Phone Ingrid Espinosa Uriel PALACIOS Primary Care Provider Encounter Details Date Type Department Care Team Description 09/29/2019 External Results Hematology and Oncology at [facility] [place] [phone] Social History Tobacco Use Types Packs/Day [...] Lizeth Frazier MD [facility] er [address] [place] [address] (Wo rk) 03/18/2022 Office Visit Neurology Donovan Mayer MD [facility] NEUROLOGY DEPT. [place], [place] [address] (Wo rk) 04/24/2022 Appointment Hematology and Oncology 04/24/2022 Office Visit Hematology and Oncology Renea Navarro MD [facility] er HEMATOLOGY/ONCOL CLAUDE DEPT. [place] [address] (Wo rk) documented as of this encounter Procedures Procedure Name Priority Date/Time Associated Comments Diagnosis CBC (WITH DIFF) Routine 09/28/2019 4:04 PM Result s for this EDT procedure are i n the results section. LACTATE DEHYDROGENASE Routine 09/28/2019 4:04 PM Results for this EDT procedure are i n the results section. COMPREHENSIVE Routine 09/28/2019 4:04 PM Results for this METABOLIC PANEL EDT procedure ar e in (NON-FASTING) the results section. documented in this encounter Results Lactate Dehydrogenase (09/28/2019 4:04 PM EDT) athologist Signature LDH 212 81 - 234 EXTERNAL LAB Specimen (Source) Anatomical Collection Method Collection Time Re ceived Time Location / / Volume Laterality Blood specimen 09/28/2019 4:04 PM (specimen) EDT Historical Provider MD CHEMISTRY ORDERABLES Performing Organization Address City/State/ZIP Code Phon e Number EXTERNAL FACILITY EXTERNAL LAB Comprehensive metabolic panel (non-fasting) (09/28/2019 4:04 PM EDT) athologist Signature Glucose Lvl 103 74 - 106 EXTERNAL LAB BUN 11 7 - 18 EXTERNAL LAB Creatinine 0.83 0.55 - EXTERNAL LAB 1.02 Estimated GFR >=60.00 EXTERNAL LAB Sodium 142 136 - 145 EXTERNAL LAB Potassium 3.9 3.5 - 5.1 EXTERNAL LAB Chloride 106 98 - 107 EXTERNAL LAB CO2 30 21.0 - EXTERNAL LAB 32.0 Calcium 9.7 8.5 - 10.1 EXTERNAL LAB Total Protein 6.9 6.4 - 8.2 EXTERNAL LAB Albumin 4.0 3.4 - 5.0 EXTERNAL LAB Total Bilirubin 0.3 0.2 - 1.0 EXTERNAL LAB Alk Phos 38 46 - 116 EXTERNAL LAB AST 24 15 - 37 EXTERNAL LAB ALT 27 15 - 59 EXTERNAL LAB Specimen (Source) Anatomical Collection Method Collection Time Re ceived Time Location / / Volume Laterality Blood specimen 09/28/2019 4:04 PM (specimen) EDT Historical Provider CHEMISTRY ORDERABLES Performing Organization Address City/State/ZIP Code Phon e Number EXTERNAL FACILITY EXTERNAL LAB (ABNORMAL) CBC (with Diff) (09/28/2019 4:04 PM EDT) [facility] gist Method Time Signature WBC 42.85 4.4 - 10.8 EXTERNAL LAB (ExtHH) Hemoglobin 14.3 12.0 - EXTERNAL LAB 15.5 Hematocrit 43.9 36.0 - EXTERNAL LAB 46.0 Platelets 135 130 - 400 EXTERNAL LAB Neutr Abs (ANC) 3.77 1.2 - 6.7 EXTERNAL LAB Lymphocyte Abs 37.45 1.2 - 3.4 EXTERNAL LAB (EXTERNAL/ ABN) Specimen (Source) Anatomical Collection Method Collection Time Re ceived Time Location / / Volume Laterality Blood specimen 09/28/2019 4:04 PM (specimen) EDT Historical Provider HEMATOLOGY ORDERABLES Performing Organization Address City/State/ZIP Code Phon e Number EXTERNAL FACILITY EXTERNAL LAB documented in this encounter Visit Diagnoses Not on filedocumented in this encounter Care Teams Industrial Tractor Driver Relationship Specialty Start Date End Date Ingrid Espinosa APRN PCP - General Internal Medicine 07/28/[address] [place] [address] documented as of this encounter
--- OUTSIDE RECORDS SUMMARY | 2021-12-21 00:34 | XMS_ITS | Encounter Summary ---
:1950 Author Organization [facility] [place] [address] Care Team Providers Name Role Phone Ingrid Espinosa APRN Primary Care Provider Reason for Visit Reason Comments Follow-up Encounter Details Date Type Department Care Team Description 02/22/2020 Office Visit Urology at [facility] Lissy Gutierrez, Angiomyolipoma of both kidne ys (Primary Dx); [facility] Gross hematuria [facility] [address] UROLOGY [phone] [place], [place] [address] Social History Tobacco Use Types [...] Sign Reading Time Taken Comments Blood Pressure 132/68 02/22/2020 3:47 PM EDT Pulse 67 02/22/2020 3:47 PM EDT Temperature - - Respiratory Rate - - Oxygen Saturation 100% 02/22/2020 3:47 PM EDT Inhaled Oxygen Concentration - - Weight - - Height - - Body Mass Index - - documented in this encounter Patient Instructions Patient InstructionsJoKathie worley LPN - 02/22/2020 3:40 PM EDT Instructions following Cystoscopy Activity: As tolerated by your comfort level. Fluids: You should increase your water today. Avoid coffee, tea and cola. You do not need to exceed 64 ounces of water today. Urination: You will likely have a small amount of blood in your urine for the next several days. This is normal; however, if you are passing large amounts of blood clots or are unable to void please call our office at [phone] before 5PM or [phone] after hours. Please call if: * you have copious blood in your urine * fevers greater than 101.3 F * you are unable to void The number for questions is [phone] before 5 PM weekdays and [phone] after 5 PM and weekends. Follow-up: In 1 year documented in this encounter Progress Notes Lissy Gutierrez MD - 02/22/2020 3:40 PM EDT Patient Name: Saundra Dhaliwal MR: [id number] Date of Service: 12/13/2019 Primary Care Provider: Ingrid Espinosa MD [phone] ?? Reason for Visit: Saundra Dhaliwal is a 69 year old woman who is here for follow up.. She is followedfor bilateral angiomyolipomas and a cystoscopy to complete a hematuria w/u ?? Outside scans reviewed 04/21 CT abdomen 2 left ~1.5 cm AML, 2 right <0.5 cm AML. No hounsfield measurements but clearly appear to be fat. 04/22 CT abdomen No change 08/03 CT a/p: No change in AML, however new bilateral non-obstructing kidney stones. ?? Some gross hematuria.11/2019. A lot of blood and just with wiping. Had some vaginal irritation, but did not before at other time with gross blood with wiping. No clots. No smoking history. No chemical or dye exposure. A few wipes. No change in urinary symptoms like urgency and frequency. No UTIs. No hematuria since 11/2019 She has back pain and walks with [...] abnoraalities ?? Labs: None ?? X-rays: 08/22 [facility] U/S AMLS visualised and no change in size as compared with 04/21 CT 10/23 [facility] U/S Slightly larger 1-2mm 10/24 [facility] U/S minimal change all <2cm 10/25 [facility] U/S minimal change all <2cm 10/2009 [facility] U/S minimal change all <2cm 02/27: US: right AML is now 2 cm, about 1 cm larger than 2 years ago. Left AML is stable-reviewed with Dr. Gutierrez Ultrasound - Retroperitoneal Complete - Summary 1) [...] degree of distention. 12/13/2019: renal US: Dr. Gutierrez reviewed. 1. On the RIGHT, what is [...] cm 3. No hydronephrosis or hydroureter. 12/2019 CTU IMPRESSION 1. Interval increase in size of [...] and has discussed this finding with her stranner 10/2009 PVR by bladder scan = 0 ?? Labs 06/2014: U/A Negative 07/2015: rbc-UA sent 11/2019: 1 RBC, 1WBC 01/2020 NO RBC/No WBC?? Cystoscopy 03/2013: Normal 02/2020: Normal ?? Cytology 03/2013: Negative ?? Impression: Bilateral AML's, asymptomatic. Now 4.1 cm. Reviewed risk of bleeding. Controversy regarding 4cm cut point etc.Would not recommend intervention now. Bilateral non-obstructing renal stones on CT Blood with wiping Negative hematuria w/u in 2019 ? Plan: 1 year with renal u/s documented in this encounter Procedure Notes Lissy Gutierrez MD - 02/22/2020 3:40 PM EDTAssociated Order(s): CYSTOSCOPY Pre-Procedure Diagnose(s): Gross hematuria Procedure: Flexible Cystoscopy Surgeon: Lissy Gutierrez Preoperative Diagnosis: History of Bladder Cancer Post Operative Diagnosis: No evidence of Bladder Cancer Complications: None Procedure: Urinalysis revealed no evidence of an active urinary tract infection. After informed consent was obtained and the external genitalia appropriately cleaned and draped, lidocaine was instilled into the urethra to achieve topical anaesthesia. The flexible telescope was inserted into the urethra and advanced into the bladder under direct vision. The bladder was systematically inspected through 360 degrees with the flexible telescope including retroversion. The anterior urethroscopy was normal. The ureteral orifices were in normal position and effluxed clear urine. The bladder was normal. There were no bladder tumors, mucosal abnormalities or bladder stones. The cystoscope was removed. The patient tolerated the procedure without difficulty. There were no complications. Lissy Gutierrez documented in this encounter Plan of Treatment Upcoming Encounters Date Type Specialty Care Team Description 03/06/2022 Office Visit Cardiology Lizeth Frazier MD [facility] [place], [place] [address] (Wo rk) 03/18/2022 Office Visit Neurology Donovan Mayer MD [facility] NEUROLOGY DEPT. [place], [place] [address] (Wo rk) 04/24/2022 Appointment Hematology and Oncology 04/24/2022 Office Visit Hematology and Oncology Renea Navarro MD [facility] HEMATOLOGY/ONCOL OGY DEPT. [place], [place] [address] (Wo rk) documented as of this encounter Procedures Procedure Name Priority Date/Time Associated Diagnosis Comme nts CYSTOSCOPY Routine 02/22/2020 3:40 PM Gross hematuria Result s for this EDT procedure are i n the results section . documented in this encounter Results US Retroperitoneal [...] ly. Electronically signed by: Omar Heart, Radiology [place] ([phone]), at 2:24 PM Thank you for letting us participate in the care of this patient. If you are a [facility] care [facility] er and have any questions regarding this report, please contact the number above. For patients who have ques tions, please contact the [facility] profess[facility]al that requested your imaging first. ?Jolene Case, [facility] Electronically Signed Final Report ?? 02:30 pm Narrative 03/05/2021 2:31 PM EDT Renal ? (Signed Final 03/05/2021 02:30 pm) PATIENT INFO: ID #: ? [id number] ?: ??[birth year] (70 yrs)(F) Name: ? SAUNDRA DHALIWAL ? Visit Date: 03/05/2021 01:34 pm PERFORMED BY: Performed By: ? Thomas San RDMS Attending: ?Manpreet WHITLEY, Jolene Keenan Referred By: ?LISSY GUTIERREZ Location: ? [place] SERVICE(S) PROVIDED: URETRO - Retroperitoneal Complete - IMG [id number] ? [id number] INDICATIONS: Hx of nephrolithiasis and bilateral AML [...] ?1.1 ?1.1 ? 1.2 ?Inferior ?ma 1 ?07/11/14 ?Mid/Lower ? An giomyolipo ?1.7 ?1.2 ? 2.4 ?Pole ?ma 1 ?03/09/13 ?MID/Lower ? An giomyolipo ?2.3 ?1.7 ? 2.0 ?Pole ?ma ?Lateral 1 ?03/02/ ?Lower pole ?An giomyolipo ?1.2 ?1.6 ? 2.0 ?lateral ? ma 1 ?10/30/ ?Lower pole ?An giomyolipo ?1.1 ?1.2 ? 1.1 ?ma 2 ?03/05/ ?Lower pole ?An giomyolipo ?0.5 ?0.5 ? 0.4 ?ma 2 ?07/27/20 ?Mid Lateral ?? Ang iomyolipo ?5.0 ?2.6 ? 3.7 ?ma 2 ?18 ?Lower pole ?An giomyolipo ?1.2 ?1.2 ? 1.0 ?ma 2 ?08/06/16 ?Mid / ? Angiomyolipo ?0.5 ?0.5 ? 0.3 ?Inferior ?ma 2 ?07/11/15 ?Mid pole ?A ngiomyolipo ?0.7 ?0.5 ? 5.0 ?ma 2 ?03/09/13 ?Lower pole ?An giomyolipo ?0.5 ?0.7 ? 0.6 ?ma 2 ?10/15/12 ?Lower pole ?An giomyolipo ?0.4 ?0.2 ? 0.5 ?ma 2 ?/14/10 ?Lower pole ?An giomyolipo ?0.4 ?0.5 ? [...] giomyolipo ?1.6 ?1.0 ? 1.5 ?ma 1 ?08/06/16 ?Upper pole ?An giomyolipo ?1.4 ?1.7 ? 1.8 ?ma 1 ?15 ?Upper pole ?An giomyolipo ?1.8 ?1.6 ? 1.6 ?ma 1 ?03/09/13 ?Upper pole ?An giomyolipo ?1.4 ?1.8 ? 1.4 ?ma # ?Date ?Location ?Description ?L ?AP ?TV (cm) 1 ?10/15/12 ?Upper pole ?An giomyolipo ?1.6 ?1.2 ? 1.4 ?ma 1 ?06/14/10 ?Upper pole ?An giomyolipo ?2.4 ?1.6 ? 1.4 ?ma 2 ?03/05/ ?Lower pole ?An giomyolipo ?1.8 ?1.4 ? 1.5 ?ma 2 ?12/12/ ?Lower pole ?An giomyolipo ?2.6 ?1.5 ? 1.7 ?ma 2 ?07/28/18 ?Lower pole ?An giomyolipo ?2.5 ?1.3 ? 1.4 ?ma 2 ?08/06/16 ?Lower pole ?An giomyolipo ?1.8 ?1.6 ? 1.5 ?ma 2 ?07/11/15 ?Lower pole ?An giomyolipo ?1.7 ?1.5 ? 1.6 ?ma 2 ?10/22/13 ?Lower pole ?An giomyolipo ?1.9 ?1.5 ? 1.6 ?ma 2 ?10/15/12 ?Lower pole ?An giomyolipo ?2.6 ?1.4 ? 1.5 ?ma 2 ?10/30/09 ?Lower pole ?An giomyolipo ?1.7 ?1.3 ? 1.4 ?ma URINARY BLADDER: Comment: ?Partially distended, norm al contour Procedure Note Jolene Case MD - 03/05/2021 Renal (Signed Final 03/05/2021 02:30 pm ) PATIENT INFO: ID #: [id number] : [birth year] (70 y rs)(F) Name: SAUNDRA DHALIWAL Visit Date: 2020 01:34 pm PERFORMED BY: Performed By: Thomas San RDMS Attending: Jolene Case MD Referred By: LISSY GUTIERREZ Location: [place] SERVICE(S) PROVIDED: URETRO - Retroperitoneal Complete - [facility] [id number] INDICATIONS: Hx of nephrolithiasis and bilateral AML [...] ly. Electronically signed by: Omar Heart, Radiology [place] ([phone]), at 2:24 PM Thank you for letting us participate in the care of this patient. If you are a [facility] er and have any questions regarding this report, please contact the number above. For patients who have ques tions, please contact the [facility] profess[facility] nal that requested your imaging first. Jolene Case, [employer] Electronically Signed Final Report 03/05 02:30 pm Lissy Gutierrez MD IMG US GEN ORDERABLES Cystoscopy (02/22/2020 3:40 PM EDT) Narrative Lissy Gutierrez MD - 02/22/2020 3:40 PM EDT Lissy Gutierrez MD ? 02/23/2020 ??5:19 PM Procedure: Flexible Cystoscopy Surgeon: Lissy Gutierrez Preoperative Diagnosis: History of Bladd er Cancer Post Operative Diagnosis: No evidence of Bladder Cancer Complications: None Procedure: Urinalysis revealed no evidence of an ac tive urinary tract infection. After informed consent was obtained and the external genitalia appropriately cleaned and draped, lidoca ine was instilled into the urethra to achieve topical anaesthes ia. The flexible telescope was inserted into the urethra and advanced into the bladder under direct vision. Th e bladder was systematically inspected through 360 deg gabbie with the flexible telescope including retroversion. The anterior urethroscopy was normal. The ureteral orifices were in normal pos ition and effluxed clear urine. The bladder was normal. There were no bl adder tumors, mucosal abnormalities or bladder stones. The cystoscope was removed. The patient tolerated the procedure without difficulty. There were no compli cations. Lissy Gutierrez Lissy Gutierrez MD PROCEDURE ORDERABLES documented in this encounter Visit Diagnoses Diagnosis Angiomyolipoma of both kidneys - Primary Gross hematuria Gross hematuria Angiomyolipoma of both kidneys documented in this encounter Care Teams Occupational Health Specialist Relationship Specialty Start Date End Date Ingrid Espinosa, [employer] PCP - General Internal Medicine 07/28/17 [address] [facility] [place] [address] documented as of this encounter
--- OUTSIDE RECORDS SUMMARY | 2021-12-21 00:34 | XMS_ITS | Encounter Summary ---
:1950 Author Organization [facility] [place] [address] Care Team Providers Name Role Phone Ingrid Espinosa APRN Primary Care Provider Encounter Details Date Type Department Care Team Description 05/26/2020 TH Visit Gastroenterology at [facility] [place], Incontinence of feces, unspe cified fecal incontinence type; (TeleHealth) [facility] Kade Orellana APRN Irritable [place], [place] [address] [facility] [phone] Center [place] [address] Social History Tobacco Use Types Packs/Day Years [...] as of this encounter Patient Instructions Patient InstructionsSiSuri pérez APRN - 05/26/2020 10:30 AM EST 1. Decrease colestipol to 1/2 pill once daily for one week, then if still constipated, stop colestipol. Please send me a message with an update. 2. Methylcellulose (Citrucel) one teaspoon mixed in 8 oz of fluid daily. Increase by one teaspoon per day every week as tolerated up to 2 Tbs per day. If this makes symptoms worse, please stop. 3. If still feeling constipated or having symptoms after one month, please send me a [employer] message and I will order the tests documented in this encounter Progress Notes Suri Newton APRN - 05/26/2020 10:30 AM EST GASTROENTEROLOGY TELEMEDICINE PROGRAM - ESTABLISHED PATIENT VISIT Chief Complaint: Saundra Blanton is a [address] Espinosa here for follow-up of fecal incontinence. Detailed history: *70 y.o. female With status post cholecystectomy, CLL, s/p c- section, and carcinoid in 2007. During our appointment on 04/08/2018, she endorsed persistent diarrhea for approximately 1month. Recommendations included stool studies, 5 HIAA, FODMAP diet, EGD, colonoscopy, and blood work. Interval history: Has been following the FODMAP diet since our last appointment. This has been helping. Currently taking one colestipol per day. This past summer, she developed fecal incontinence. Urgent non-bloody diarrhea. With associated abdominal pain and cramping. [place]anche type 1-4. Fecal incontinence. Denies unintentional weight loss. First noted this summer. Occurred again April. Constipation lasting up to 4 days without a bowel movement. Difficulty emptying. May move her bowelsup to 4 times on these days. Occurring on an almost weekly basis. Denies NSAID use. Denies urinary incontinence. Review of systems: 14-point review of systems reviewed and negative except as above. Medications: Outpatient Medications Prior to Visit Medication Sig Dispense Refill ??? gabapentin (Neurontin) [...] mouth. ??? fluticasone propionate (FLONASE) 50 mcg/actuation [place], Suspension ??? Bifidobacterium infantis (ALIGN) 4 mg [...] prior to visit. Allergies: is allergic to latex; sulfa (sulfonamide antibiotics); codeine; adhesive tape; adhesive tape-silicones; gluten; hydrocodone-acetaminophen; lactose; and penicillins. Past Medical History: has a past medical history of Allergic fungal sinusitis, Angiomyolipoma of kidney (03/02/2012), Benign renal tumor (10/19/2010), Carcinoid tumor (10/19/2010), Chronic pain disorder, Depression (10/19/2010), DVT (deep venous thrombosis), Elevated cholesterol (10/19/2010), Gastric polyp, GERD (gastroesophageal reflux disease), Hyperlipidemia, Hypertension, Lumbar radiculopathy (10/19/2010),Migraine (10/19/2010), Obesity (10/19/2010), Sleep apnea (10/19/2010), Systolic murmur, and Thoracic outlet syndrome. Past Surgical History: has a past surgical history that includes created by interface; created by interface; Lumbar spine surgery (1975); section (1986); Toe Surgery; endoscopy, upper gi, simple primary exam; Upper gastrointestinal endoscopy; Cholecystectomy (2006); [place] tooth extraction; Ca taract removal with implant (Bilateral); Colonoscopy, Biopsy (42755) (N/A, 06/30/2018); Upper Gi Endoscopy, Biopsy ([id number]) (N/A, 06/30/2018); and Colonoscopy (07/22/2016). Family History: [...] 06/16/18; negative Assessment/Plan: Ms. Blanton is a 70 y.o. patient with IBS and fecal incontinence. She was doing well managing diarrhea with colestipol and the FODMAP diet following her last appointment. EGD, colonoscopy, and Octreoscan were unremarkable. This past summer, she developed urgent nonbloody fecal incontinence and has had 2 episodes. She endorses constipation on a weekly basis lasting up to 4 days. This is followed by for incomplete bowel movements. She has diarrhea approximately once a month per her report. She does not take NSAIDs. She does not have any red flag warning signs indicating need for urgent work-up. She is still taking colestipol, which may be contributing to the constipation. She may benefit from Citrucel. If symptoms do not improve with the plan as outlined below, the next step is anorectal manometry and smart pill versus small bowel follow-through. Recommendations: -Decrease colestipol to half pill once daily for 1 week, then if still constipated, stop colestipol.She will send me a [employer] message with an update -Citrucel -If after 1 month, she will send me a [employer] message and I will order anorectal manometry and smart pill or small bowel follow-through TIME SPENT WITH PATIENT Time spent reviewing records prior to this encounter: 5 minutes Time spent during encounter with patient including counselin minutes Time spent documenting encounter after office visit: 5 minutes Approximate total time devoted to this single encounter: 30 minutes . Suri Newton APRN [facility] [place] [address] documented in this encounter Plan of Treatment Upcoming Encounters Date Type Specialty Care Team Description 03/06/2022 Office Visit Cardiology Lizeth Frazier MD [facility] [place] [address] (Wo rk) 03/18/2022 Office Visit Neurology Donovan Mayer MD [facility] ER NEUROLOGY DEPT. [place], [place] [address] (Wo rk) 04/24/2022 Appointment Hematology and Oncology 04/24/2022 Office Visit Hematology and Oncology Renea Navarro MD [facility] er HEMATOLOGY/ONCOL OGY DEPT. [place], [place] [address] (Wo rk) documented as of this encounter Visit Diagnoses Diagnosis Incontinence of feces, unspecified fecal incontinence type Irritable bowel syndrome, unspecified ty pe documented in this encounter Care Teams Transit Survey Worker Relationship Specialty Start Date End Date Ingrid Espinosa APRN PCP - General Internal Medicine 07/28/[address] [place] [address] documented as of this encounter
--- OUTSIDE RECORDS SUMMARY | 2021-12-21 00:35 | XMS_ITS | Encounter Summary ---
:1950 Author Organization [facility] [place] [address] Care Team Providers Name Role Phone Francisca, Ingrid Uriel PALACIOS Primary Care Provider Encounter Details Date Type Department Care Team Description 05/31/2019 Office Visit Neurology at [facility] Donovan Mayer, Radiculopathy of lumbar [facility] Center MD [address] [place], [place] CENTER [address] NEUROLOGY DEPT. [phone] [place], [place] [address] Social History Tobacco Use Types [...] Sign Reading Time Taken Comments Blood Pressure 150/70 05/31/2019 8:41 AM EST Pulse 78 05/31/2019 8:41 AM EST Temperature - - Respiratory Rate - - Oxygen Saturation 97% 05/31/2019 8:41 AM EST Inhaled Oxygen Concentration - - Weight 107 kg (236 lb) 05/31/2019 8:41 AM EST Height 175.3 cm (5' 9) 05/31/2019 8:41 AM EST Body Mass Index 34.85 05/31/2019 8:41 AM EST documented in this encounter Patient Instructions Patient InstructionsDonovan Mayer MD - 05/31/2019 9:00 AM EST I think you are doing quite well. Back problems appear to be stable. If there is a recurrence of back and leg symptoms, injections can be repeated for 6 month intervals if necessary Headaches appear to be stable. I would do nothing differently at this time. I would like to see you back in 9 months or sooner if necessary. Donovan Mayer MD Department of Neurology [address] [address], [place] [address] Pager: [phone], #[phone] Email: [email or web address] documented in this encounter Progress Notes Donovan Mayer MD - 05/31/2019 9:00 AM EST Neurology clinic note Chief Complaint: Lumbar radiculopathy, [...] radicular symptoms. The right leg feels stronger. Problems of diarrhea are persistent but stable. She was felt not to have recurrence, or to require further follow-up, of the carcinoid tumor. Chronic lymphocytic leukemia is being followed conservatively here in hematology. 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 PMH: Patient Active Problem List Diagnosis ??? GERD (gastroesophageal reflux disease) ??? CLL (chronic lymphocytic leukemia) ??? Gastric polyp ??? Angiomyolipoma of kidney ??? Candidal intertrigo ??? SK (seborrheic keratosis) ??? Seborrheic keratosis, inflamed ??? Right ankle pain ??? Hypercoagulable state Overview: A. Provoked LLE DVT post- after 1 month bedrest and , 1986. Treated for 3 months. B. R popliteal and posterior tibial DVT 2005. i. Repeat U/S OSH 2006 normal. C. [facility] anticoagulation since 2005. D. Thrombosis panel off warfarin 2011 nondiagnostic. D-dimer <200. ??? Right knee pain ??? Solar lentigo ??? Schreiber angioma ??? Lumbar radiculopathy ??? Carcinoid tumor ??? Migraine ??? Hypothyroid ??? Sleep apnea ??? Benign renal tumor ??? Depression ??? Hypertension ??? Elevated cholesterol ??? Obesity ??? CIS - Tinea pedis ROS: She is eating and sleeping alright. Bowel and bladder function are normal. 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 Physical Exam: BP 150/70 Pulse 78 Ht 175.3 cm (5' 9) Wt 107 kg (236 lb) SpO2 97% BMI 34.85 kg/m?? Head, eyes, ears, nose, and throat were normal. Heart and lungs were normal. At baseline has sysystolic ejection murmur There are some arthritic deformities of the right ankle and foot. She is mentally intact and speech was normal Cranial nerves were normal. Strength was essentially normal, except there is 3-4/5 weakness of dorsiflexion of the big toe on the right, and weakness of eversion of the right foot, [...] Outpatient Medications Medication Sig Dispense Refill ??? simvastatin (ZOCOR) 20 mg Tablet Take 20 mg by mouth. ??? fluticasone propionate (FLONASE) 50 mcg/actuation [place], Suspension ??? loratadine (CLARITIN) 10 mg Tablet Take 10 mg by mouth daily. ??? ranitidine (ZANTAC) 150 mg Tablet Take [...] as noted above, worse on the right. At this point I do think there is a definite deterioration although this is not detected on MRI scan. I do not see a clear surgical target. The weakness of toe dorsiflexion and foot eversion on the right is I believe part of the lumbar radiculopathy and was getting worse. Following lumbar epidural steroid injection it is better. At present I would do nothing more. If symptoms worsen,then I think we should give consideration to electrical studies and repeating lumbar epidural steroid injection. Some of the pain in her right foot is, I believe, musculoskeletal and related to the frac ture and sprain. She has milder symptoms on [...] gabapentin which I think is reasonable. 4. 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 I will see her back in 9 months or sooner if necessary. Thank you for this consultation. Donovan Mayer MD [place] [address] Pager: [phone], #[phone] Email: [email or web address] CC: Ingrid Espinosa APRN documented in this encounter Plan of Treatment Upcoming Encounters Date Type Specialty Care Team Description 03/06/2022 Office Visit Cardiology Lizeth Frazier MD [facility] [place], [place] [address] (Wo rk) 03/18/2022 Office Visit Neurology Donovan Mayer MD [facility] NEUROLOGY DEPT. [place], [place] [address] (Wo rk) 04/24/2022 Appointment Hematology and Oncology 04/24/2022 Office Visit Hematology and Oncology Renea Navarro MD [facility] HEMATOLOGY/ONCOL [place] DEPT. [place], [place] [address] (Wo rk) documented as of this encounter Visit Diagnoses Diagnosis Radiculopathy of lumbar region Thoracic or lumbosacral neuritis or radi culitis, unspecified documented in this encounter Care Teams Carton Filling Machine Operator Relationship Specialty Start Date End Date Ingrid Espinosa APRN PCP - General Internal Medicine 07/28/17 [address] [place] [address] documented as of this encounter
--- OUTSIDE RECORDS SUMMARY | 2021-12-21 00:35 | XMS_ITS | Encounter Summary ---
:1950 Author Organization [facility] [place] [address] Care Team Providers Name Role Phone Ingrid Espinosa SUZANNE Primary Care Provider Reason for Visit Reason Onset Date Comments Abnormal Lab 08/31/2018 Encounter Details Date Type Department Care Team Description 08/31/2018 Telephone Hematology and Oncology at [place] [phone] Social History Tobacco Use Types Packs/Day [...] this encounter Miscellaneous Notes Telephone Encounter - Rashmi James RN - 08/31/2018 12:58 PM EDT RN received call from Martine at [facility] stating patient's WBC=31.44. She will fax full results to this office. RN will notify Dr Navarro of above information documented in this encounter Plan of Treatment Upcoming Encounters Date Type Specialty Care Team Description 03/06/2022 Office Visit Cardiology Lizeth Frazier MD [facility] er [place], [place] [address] (Wo rk) 03/18/2022 Office Visit Neurology Donovan Mayer MD [facility] NEUROLOGY DEPT. [place], [place] [address] (Wo rk) 04/24/2022 Appointment Hematology and Oncology 04/24/2022 Office Visit Hematology and Oncology Renea Navarro MD [facility] HEMATOLOGY/ONCOL CLAUDE DEPT. [place], [place] [address] (Wo rk) documented as of this encounter Visit Diagnoses Not on filedocumented in this encounter Care Teams Auditing Clerk Relationship Specialty Start Date End Date Ingrid Espinosa APRN PCP - General Internal Medicine 07/28/17 [address] [place] [address] documented as of this encounter
--- OUTSIDE RECORDS SUMMARY | 2021-12-21 00:35 | XMS_ITS | Encounter Summary ---
:1950 Author Organization [facility] [place] [address] Care Team Providers Name Role Phone FranciscaIngrid allison APRN Primary Care Provider Reason for Referral Diagnostic Test (Routine) - Closed Specialty Diagnoses / Procedures Referred By Contact Refer red To Contact Radiology Diagnoses Diarrhea, unspecified type Suri Newton, [facility] Rad Nuclear Med Procedures [place] [address] [place] [address] Referral ID Status Reason Start Date Expiration Date Visits V isits Requested Authorized [id number] Closed Specialty 05/21/2018 05/21/2019 3 3 Service Requested Reason for Visit Diagnostic Test (Routine) - Closed Specialty Diagnoses / Procedures Referred By Contact Refer red To Contact Radiology Diagnoses Diarrhea, unspecified type Suri Newton, [facility] Rad Nuclear Med Procedures [place] [address] [place] [address] Referral ID Status Reason Start Date Expiration Date Visits V isits Requested Authorized [id number] Closed Specialty 05/21/2018 05/21/2019 3 3 Service Requested Encounter Details Date Type Department Care Team Description 06/15/2018 Hospital Encounter Nuclear Medicine at Cleo Newton, Lizeth Saldaña Suri ESUZANNE unspecified type [facility] [address] [place], [place] GASTROENTEROLOGY [phone] [place] [phone] [id number] Social History Tobacco Use Types Packs/Day Years [...] Sig Dispensed Refills Start Date End Date losartan (COZAAR) 100 Take 100 mg by mouth 0 mg Tablet daily. acetaminophen/diphenhyd Take 1 tablet by 0 ramine (TYLENOL PM mouth nightly as ORAL) needed. cholecalciferol, Take 1,000 Units by 0 Vitamin D3, 1,000 unit mouth daily. Tablet Calcium 500 mg Tab Take 500 mg by mouth 0 daily. nystatin (MYCOSTATIN) Apply topically 3 0 powder times daily as needed. ketoconazole (NIZORAL) Apply topically. 30 g 2 012 2 % creamIndications: Mixing with Desonide, Intertrigo under breasts, skin folds on abdomen [...] mg tablet times daily as needed. multivitamin Take 1 tablet by 0 (THERAGRAN) tablet mouth daily. OXYGEN-AIR DELIVERY by [facility].(Non-Drug; 0 SYSTEMS (HORIZON NASAL Combo Route) route CPAP SYSTEM [facility]) nightly. levothyroxine Take 37.5 mcg by 0 (SYNTHROID) 25 mcg mouth daily. tablet colestipol (COLESTID) 1 Take 1 tablet by 60 tablet 11 201806/13/2020 gram Tablet mouth 2 times daily. gabapentin (NEURONTIN) TAKE 1 CAPSULE 90 capsule 1 8 10/28/2018 300 mg Capsule NIGHTLY irbesartan (AVAPRO) 150 Take 150 mg by mouth 0 01/13/2019 mg Tablet daily. colestipol (COLESTID) 1 Take 1 tablet by 30 tablet 1 201701/13/2019 gram Tablet mouth daily. melatonin 3 mg Tablet Take by mouth. 0 06/13/2020 DULoxetine (CYMBALTA) Take 60 mg by mouth 0 01/13/2019 60 mg daily. Indications: capsuleIndications: Fibromyalgia fibromyalgia TENS UNITS MISC by [facility].(Non-Drug; 0 0 01/13/2019 Combo Route) route. Tens machine Daily for back and leg pantoprazole (PROTONIX) Take 40 mg by mouth 0 01/13/2019 40 mg tablet daily. simvastatin (ZOCOR) 20 Take 20 mg by mouth 0 01/13/2019 mg tablet nightly. documented as of this encounter Plan of Treatment Upcoming Encounters Date Type Specialty Care Team Description 03/06/2022 Office Visit Cardiology Lizeth Frazier MD [facility] [place], [place] [address] (Wo rk) 03/18/2022 Office Visit Neurology Donovan Mayer MD [facility] NEUROLOGY DEPT. [place], [place] [address] (Wo rk) 04/24/2022 Appointment Hematology and Oncology 04/24/2022 Office Visit Hematology and Oncology Renea Navarro MD [facility] HEMATOLOGY/ONCOL CLAUDE [place], [place] [address] (Wo rk) documented as of this encounter Procedures Procedure Name Priority Date/Time Associated Diagnosis Comme nts NM OCTREOSCAN Routine 06/16/2018 1:18 PM Diarrhea, unspecified Results for this EST type procedure are i n the results section. documented in this encounter Results NM Octreoscan (06/16/2018 1:18 PM EST) Anatomical Region Laterality Modality Nuclear Medicine Specimen (Source) Anatomical Location Collection Method / Collectio n Time Received Time / Laterality Volume Impressions 06/17/2018 12:38 PM EST No evidence for somatostatin receptor expressing malignancy or metastasis. Thank you for letting us participate in the care of this patient. For questions regarding this report, please contact e number below. ? Narrative 06/17/2018 12:38 PM EST EXAMINATION: NM OCTREOSCAN CLINICAL HISTORY: ?carcinoid. ??Slightly elevated 5HIAA TECHNIQUE: Indium-111 pentetreotide was administered intravenously in a dose of 6.2 mCi. ??4 hours later, anterior and p osterior images of the body were obtained from the top of the head to the mid thig hs. ??At 24 hours, the anterior and posterior images were repeated. At 24 ho urs, tomographic imaging of the abdomen was then performed with images reconstru cted in the axial, sagittal and coronal planes. A low-dose CT scan was acquired for attenuation correction and anatomic localization. COMPARISON: CT abdomen 07/22/2017. FINDINGS: Whole body planar images at 4 hours and 24 hours post injection show normal distribution of activity througho ut the head, neck, chest, abdomen and pelvis. 24-hour SPECT-CT imaging of the abdomen shows normal activity in all regions including physiologic activity in the li fred, spleen, kidneys, and GI tract. CT visualized small to borderline-enlarg ed lymph nodes in the aortocaval and left para-aortic region have no visible tracer uptake and are stable in size compared to prior CT of 07/22/2017. Incide ntal CT findings of moderate sized hiatal hernia and bilateral renal angiom yolipomas. Procedure Note Leon Baeza MD - 06/17/2018Formatti ng of this note might be different from the original. EXAMINATION: NM OCTREOSCAN CLINICAL HISTORY: ?carcinoid. Slightly e levated 5HIAA TECHNIQUE: Indium-111 pentetreotide was administered intravenously in a dose of 6.2 mCi. 4 hours later, anterior and pos terior images of the body were obtained from the top of the head to the mid thig hs. At 24 hours, the anterior and posterior images were repeated. At 24 ho urs, tomographic imaging of the abdomen was then performed with images reconstru cted in the axial, sagittal and coronal planes. A low-dose CT scan was acquired for attenuation correction and anatomic localization. COMPARISON: CT abdomen 07/22/2017. FINDINGS: Whole body planar images at 4 hours and 24 hours post injection show normal distribution of activity througho ut the head, neck, chest, abdomen and pelvis. 24-hour SPECT-CT imaging of the abdomen shows normal activity in all regions including physiologic activity in the li fred, spleen, kidneys, and GI tract. CT visualized small to borderline-enlarg ed lymph nodes in the aortocaval and left para-aortic region have no visible tracer uptake and are stable in size compared to prior CT of 07/22/2017. Incide ntal CT findings of moderate sized hiatal hernia and bilateral renal angiom yolipomas. IMPRESSION No evidence for somatostatin receptor ex pressing malignancy or metastasis. Thank you for letting us participate in the care of this patient. For questions regarding this report, please contact e number below. Suri Newton [facility] NM ORDERABLES documented in this encounter Visit Diagnoses Diagnosis Diarrhea, unspecified type documented in this encounter Care Teams Comparison Shopper Relationship Specialty Start Date End Date Ingrid Espinosa, SUZANNE PCP - General Internal Medicine 07/28/[address] [place] [address] documented as of this encounter
--- OUTSIDE RECORDS SUMMARY | 2021-12-21 00:35 | XMS_ITS | Encounter Summary ---
:1950 Author Organization [facility] [place] [address] Care Team Providers Name Role Phone Ingrid Espinosa Uriel PALACIOS Primary Care Provider Encounter Details Date Type Department Care Team Description 12/09/2018 Hospital Encounter Hematology and CLL (ch ronic lymphocytic leukemia); Oncology at [facility] [place] [id number] Social History Tobacco Use Types Packs/Day Years [...] Sig Dispensed Refills Start Date End Date fluticasone propionate 1 spray by Each Nare 0 (FLONASE) 50 route daily as mcg/actuation Topmost, needed. Suspension Bifidobacterium infantis Take by mouth. [...] 0 (SYNTHROID) 25 mcg mouth daily. tablet ranitidine (ZANTAC) 150 Take 150 mg by mouth 0 01/12/2020 mg Tablet 2 times daily. gabapentin (NEURONTIN) TAKE 1 CAPSULE 90 capsule 0 9 02/29/2020 300 mg Capsule NIGHTLY calcium carbonate Take by mouth. 0 (OS-ABENA) 500 mg calcium (1,250 mg) Tablet diphenhydrAMINE Take 50 mg by mouth. 0 01/13/2019 (BENADRYL) 50 mg Capsule oxyCODONE-acetaminophen Take 5-325 mg by 0 01/13/2019 (PERCOCET) 5-325 mg mouth. Tablet valsartan (DIOVAN) 160 Take 160 mg by 0 01/13/2019 mg Tablet mouth. colestipol (COLESTID) 1 Take 1 tablet by 60 tablet 11 201806/13/2020 gram Tablet mouth 2 times daily. irbesartan (AVAPRO) 150 Take 150 mg by mouth 0 01/13/2019 mg Tablet daily. colestipol (COLESTID) 1 Take 1 tablet by 30 tablet 1 201701/13/2019 gram Tablet mouth daily. melatonin 3 mg Tablet Take by mouth. 0 06/13/2020 DULoxetine (CYMBALTA) 60 Take 60 mg by mouth 0 01/13/2019 mg capsuleIndications: daily. Indications: fibromyalgia Fibromyalgia TENS UNITS MISC by Mis.(Non-Drug; 0 0 01/13/2019 Combo Route) route. Tens machine Daily for back and leg pantoprazole (PROTONIX) Take 40 mg by mouth 0 01/13/2019 40 mg tablet daily. simvastatin (ZOCOR) 20 Take 20 mg by mouth 0 01/13/2019 mg tablet nightly. documented as of this encounter Plan of Treatment Upcoming Encounters Date Type Specialty Care Team Description 03/06/2022 Office Visit Cardiology Martha Frazier MD [facility] [place], [place] [address] (Wo rk) 03/18/2022 Office Visit Neurology Donovan Mayer MD [facility] NEUROLOGY DEPT. [place], [place] [address] (Wo rk) 04/24/2022 Appointment Hematology and Oncology 04/24/2022 Office Visit Hematology and Oncology Renea Navarro MD [facility] HEMATOLOGY/ONCOL OGY DEPT. [place], [place] [address] (Wo rk) Scheduled Orders Name Type Priority Associated Diagnoses Order S chedule Lactate Dehydrogenase Lab Routine CLL (chronic 1 Occu rrences starting lymphocytic leukemia) 2018 until 12/09/2018 Comprehensive metabolic Lab Routine CLL (chronic 1 Oc currences starting panel (non-fasting) lymphocytic leukemia) 12/09/2018 until 12/09/2018 CBC (with Diff) Lab Routine CLL (chronic 1 Occurrence s starting lymphocytic leukemia) 2018 until 12/09/2018 documented as of this encounter Procedures Procedure Name Priority Date/Time Associated Comments Diagnosis SCAN, PERIPHERAL BLOOD Routine 12/09/2018 2:40 PM Results for this EDT procedure are i n the results section. HEMOGRAM Routine 12/09/2018 2:40 PM CLL (chronic Results f or this EDT lymphocytic procedure are i n leukemia) the results Thrombocytopenia section. DIFFERENTIAL, Routine 12/09/2018 2:40 PM CLL (chronic Results for this AUTOMATED EDT lymphocytic procedure are i n leukemia) the results Thrombocytopenia section. CBC (WITH DIFF) Routine 12/09/2018 2:40 PM CLL (chronic EDT lymphocytic leukemia) Thrombocytopenia DIRECT ANTIGLOBULIN Routine 12/09/2018 2:40 PM CLL (chronic Re sults for this TEST EDT lymphocytic procedure are i n leukemia) the results Thrombocytopenia section. LACTATE DEHYDROGENASE Routine 12/09/2018 2:40 PM CLL (chronic Results for this EDT lymphocytic procedure are i n leukemia) the results Thrombocytopenia section. COMPREHENSIVE Routine 12/09/2018 2:40 PM CLL (chronic Results for this METABOLIC PANEL EDT lymphocytic procedure ar e in (NON-FASTING) leukemia) the results Thrombocytopenia section. documented in this encounter Results Scan, Peripheral Blood (12/09/2018 2:40 PM EDT) [facility] Method Time Signature Plat Estimate Decreased [facility] RBC Morphology Normal [facility] Smudge Cells Present [facility] Specimen Anatomical Collection Method Collection Time Receive d Time (Source) Location / / Volume Laterality Blood specimen 12/09/2018 2:40 PM 019 2:48 (specimen) EDT PM EDT Resulting Agency Comment Spec In Lab Virgilio Navarro MD HEMATOLOGY ORDERABLES Performing Organization Address City/State/ZIP [place] [address] (ABNORMAL) Differential, Automated (12/09/2018 2:40 PM EDT) [facility] Method Time Signature Neutrophils % 9.2 % [facility] Neutr Abs (ANC) 3.28 1.70 - [facility] 6.10 [facility] x10(3)/[facility] LABORATORY Lymphocytes % 87.8 % [facility] Lymphocytes Abs 31.4 (H) 0.9 - 3.2 [facility] x10(3)/[facility] LABORATORY Monocytes % 2.2 % [facility] Monocyte Abs 0.8 0.3 - 0.9 [facility] x10(3)/[facility] LABORATORY Eosinophils % 0.5 % [facility] Eosinophils Abs 0.2 0.0 - 0.4 [facility] x10(3)/[facility] LABORATORY Basophils % 0.2 % [facility] Basophils Abs 0.1 0.0 - 0.1 [facility] x10(3)/[facility] LABORATORY Immature Gran % 0.10 % [facility] Comment: Immature granulocytes(IG's)percentage an d absolute count will include metamyelocytes, myelocytes, and promyelo cytes. Blood smears from CBCs yielding IG's will be scanned manually for concor dance. If this scan disagrees with the automated IG or if promyelocytes are not ed, a manual differential will be performed. Betty Gran Abs 0.05 (H) 0.00 - 0.04 x10(3)/[facility] LABORATORY Specimen Anatomical Collection Method Collection Time Receive d Time (Source) Location / / Volume Laterality Blood specimen 12/09/2018 2:40 PM 019 2:48 (specimen) EDT PM EDT Resulting Agency Comment Spec In Lab Virgilio Navarro MD HEMATOLOGY ORDERABLES Performing Organization Address City/State/ZIP [place] [address] (ABNORMAL) Hemogram (12/09/2018 2:40 PM EDT) [facility] Method Time Signature WBC 35.8 4.0 - 9.5 [facility] (Critical) x10(3)/[facility] LABORATORY RBC 4.67 4.00 - [facility] 5.21 [facility] x10(6)/[facility] LABORATORY Hemoglobin 14.0 11.7 - [facility] g[facility]/dL [facility] Hematocrit 43.1 35.7 - [facility] 45.8 % [facility] MCV 92.3 82.6 - [facility] 94.4 fL [facility] MCH 30.0 27.1 - [facility] 32.0 pg [facility] LAB[facility]ATORY MCHC 32.5 31.7 - [facility] 35.0 gm/dL [facility] LABORATORY Platelets 124 (L) 145 - 357 [facility] x10(3)/[facility] LABORATORY RDWSD 45.1 37.0 - [facility] 46.0 [facility] LABORATORY RDWCV 13.3 11.5 - [facility] 14.1 % [facility] LABORATORY MPV 10.8 7.6 - 12.9 [facility] LABORATORY nRBC % Auto 0.1 % [facility] nRBC Abs Auto 0.020 (H) 0.000 - [facility] 0.000 [facility] x10(3)/[facility] LABORATORY Specimen Anatomical Collection Method Collection Time Receive d Time (Source) Location / / Volume Laterality Blood specimen 12/09/2018 2:40 PM 019 2:48 (specimen) EDT PM EDT Resulting Agency Comment Spec In Lab Virgilio Navarro MD HEMATOLOGY ORDERABLES Performing Organization Address City/[facility]/[place] [address] Direct antiglobulin test (12/09/2018 2:40 PM EDT) P athologist Signature LILIAN Negative [facility] Specimen Anatomical Collection Method Collection Time Receive d Time (Source) Location / / Volume Laterality Blood specimen 12/09/2018 2:40 PM 019 2:47 (specimen) EDT PM EDT Resulting Agency Comment Spec In Lab Virgilio Navarro MD BLOOD BANK ORDERABLES Performing Organization Address City/[facility]/ZIP [facility] [place] [address] (ABNORMAL) Comprehensive metabolic panel (non-fasting) (12/09/2018 2:40 PM EDT) P athologist Signature Glucose Lvl 92 65 - 199 [facility] mg/dL [facility] Comment: Diabetes: >=200 mg/dL plus symp toms BUN 18 8 - 18 mg/dL [facility] Creatinine 1.09 0.70 - 1.20 mg/dL [facility] LABOR[facility]ORY Sodium 147 (H) 135 - 145 mmol/L [facility] Potassium 4.3 3.5 - 5.0 mmol/L [facility] Comment: Please note: ??Patients with WBC >100,00 0 may have falsely elevated Potassium levels. ??For accurate Potassium quantif ication in these patients send serum separator tube (gold top) for subsequent determinations. ??Contact the Clinical Chemistry Laboratory if there are any qu estions. Chloride 109 (H) 98 - 107 mmol/L [facility] CO2 26 22 - 31 mmol/L [facility] Anion Gap 12 5 - 15 mmol/L [facility] Calcium 10.1 8.5 - 10.5 mg/dL [facility] Total Protein 7.3 6.1 - 8.0 gm/dL [facility] Albumin 4.6 3.2 - 5.2 gm/dL [facility] AST 22 0 - 30 unit/L [facility] ALT 13 0 - 30 unit/L [facility] Alk Phos 65 40 - 104 unit/L [facility] Total Bilirubin 0.3 0.2 - 1.3 mg/dL [facility] Estimated GFR 52 (L) >=60 mL/min/1.73 m?? [facility] Comment: The eGFR was calculated using the CKD-EP I equation. As with all creatinine based estimates of kidney function, eGFR values calculated with the CKD-EPI equation are not accurate in patients wi th acute kidney failure, extremes of body mass or the acutely ill. http://[employer]DHMCnkf eGFR 60 >=60 mL/min/1.73 m?? [facility] Comment: The eGFR was calculated using the CKD-EP I equation. As with all creatinine based estimates of kidney function, eGFR values calculated with the CKD-EPI equation are not accurate in patients wi th acute kidney failure, extremes of body mass or the acutely ill. http://[employer]/DHMCnkf Specimen Anatomical Collection Method Collection Time Receive d Time (Source) Location / / Volume Laterality Blood specimen 12/09/2018 2:40 PM 019 2:48 (specimen) EDT PM EDT Resulting Agency Comment Spec In Lab Virgilio Navarro MD CHEMISTRY ORDERABLES Performing Organization Address City/[facility]/[place] [address] (ABNORMAL) Lactate Dehydrogenase (12/09/2018 2:40 PM EDT) P athologist Signature LDH 231 (H) 110 - 220 [facility] Specimen Anatomical Collection Method Collection Time Receive d Time (Source) Location / / Volume Laterality Blood specimen 12/09/2018 2:40 PM 019 2:48 (specimen) EDT PM EDT Resulting Agency Comment Spec In Lab Virgilio Navarro MD CHEMISTRY ORDERABLES Performing Organization Address City/[facility]/[place] [address] documented in this encounter Visit Diagnoses Diagnosis CLL (chronic lymphocytic leukemia) Chronic lymphoid leukemia, without menti on of having achieved remission Thrombocytopenia Thrombocytopenia, unspecified documented in this encounter Care Teams Press Smith Helper Relationship Specialty Start Date End Date Ingrid Espinosa APRN PCP - General Internal Medicine 07/28/[address] [place] [address] documented as of this encounter
--- OUTSIDE RECORDS SUMMARY | 2021-12-21 00:35 | XMS_ITS | Encounter Summary ---
:1950 Author Organization [facility] [place] [address] Care Team Providers Name Role Phone Ingrid Espinosa Uriel PALACIOS Primary Care Provider Encounter Details Date Type Department Care Team Description 06/22/2018 Telephone Dermatology at [facility] Road CallColeman MD [address] [facility] [place] [address] [facility]DER[facility] [phone] [place], [place] [address] (Wo rk) Social History Tobacco [...] this encounter Miscellaneous Notes Telephone Encounter - Coleman Martel - 06/22/2018 11:33 AM EST Called patient to discuss the following biopsy results: ? Surgical Pathology DIAGNOSIS A. Skin, left lateral thigh, ?? excision: - ??Negative for atypical melanocytic proliferation - Reparative changes consistent with previous operative site No further treatment needed going forward. Patient states that surgical site healing well. Instructed to continue with follow up in August 2018 and to call with any questions or concerns. documented in this encounter Plan of Treatment Upcoming Encounters Date Type Specialty Care Team Description 03/06/2022 Office Visit Cardiology Lizeth Frazier MD [facility] [place] [address] [place], [place] [address] (Wo rk) 03/18/2022 Office Visit Neurology Donovan Mayer MD [facility] NEUROLOGY DEPT. [place], [place] [address] (Wo rk) 04/24/2022 Appointment Hematology and Oncology 04/24/2022 Office Visit Hematology and Oncology Renea Navarro MD [facility] HEMATOLOGY/ONCOL OGY DEPT. [place], [place] [address] (Wo rk) documented as of this encounter Visit Diagnoses Not on filedocumented in this encounter Care Teams Dog Races Manager Relationship Specialty Start Date End Date Ingrid Espinosa APRN PCP - General Internal Medicine 07/28/17 [address] [place] [address] documented as of this encounter
--- OUTSIDE RECORDS SUMMARY | 2021-12-21 00:35 | XMS_ITS | Encounter Summary ---
:1950 Author Organization [facility] Address [address] [place] [address] Care Team Providers Name Role Phone Ingrid Espinosa Uriel PALACIOS Primary Care Provider Encounter Details Date Type Department Care Team Description 06/30/2019 Orders Only Orthopaedics at [place], Pain of right hip Owens Day joint (Primary Dx) 10 Mirna Owens [address] [facility] [place] [address] [phone] [place] [address] Social History Tobacco Use Types Packs/Day Years [...] Visit Cardiology Lizeth Frazier MD [facility] [address] [place], [place] [address] (Wo rk) 03/18/2022 Office Visit Neurology Donovan Mayer MD [facility] ER NEUROLOGY DEPT. [place], [place] [address] (Wo rk) 04/24/2022 Appointment Hematology and Oncology 04/24/2022 Office Visit Hematology and Oncology Renea Navarro MD [facility] HEMATOLOGY/ONCOL OGY DEPT. [place], [place] [address] (Wo rk) documented as of this encounter Results XR Pelvis and Hip [...] For questions regarding this report, please contact [facility] number below. ? Electronically signed by: Josefina Plasencia [facility] ([phone]), at 07/05/2019 2:37 PM Narrative 07/05/2019 2:37 PM EST EXAMINATION: XR [...] number below. Electronically signed by: Josefina Plasencia [facility] ([phone]), at 07/05/2019 2:37 PM [place] Salcido MD IMG DX ORDERABLES documented in this encounter Visit Diagnoses Diagnosis Pain of right hip joint - Primary Pain of right hip joint documented in this encounter Care Teams Child And Adolescent Psychologist Relationship Specialty Start Date End Date Ingrid Espinosa APRN PCP - General Internal Medicine 07/28/[address] [place] [address] documented as of this encounter
--- OUTSIDE RECORDS SUMMARY | 2021-12-21 00:35 | XMS_ITS | Encounter Summary ---
:1950 Author Organization [facility] [place] [address] Care Team Providers Name Role Phone Ingrid Espinosa SUZANNE Primary Care Provider Encounter Details Date Type Department Care Team Description 05/26/2019 Abstract Surgical Specialties at [facility] Mirna [place] [address] Social History Tobacco Use Types Packs/Day [...] 03/06/2022 Office Visit Cardiology Lizeth Frazier MD [facility] [address] [place], [place] [address] (Amado quick) 03/18/2022 Office Visit Neurology Donovan Mayer MD [facility] ER NEUROLOGY DEPT. [place], [place] [address] (Wo rk) 04/24/2022 Appointment Hematology and Oncology 04/24/2022 Office Visit Hematology and Oncology Renea Navarro MD [facility] [place] [address] (Wo rk) documented as of this encounter Visit Diagnoses Not on filedocumented in this encounter Care Teams Gaming Worker Relationship Specialty Start Date End Date Ingrid Espinosa APRN PCP - General Internal Medicine 07/28/[address] [place] [address] documented as of this encounter
--- OUTSIDE RECORDS SUMMARY | 2021-12-21 00:35 | XMS_ITS | Encounter Summary ---
:1950 Author Organization [facility] [place] [address] Care Team Providers Name Role Phone Ingrid Espinosa APRN Primary Care Provider Reason for Visit Auth/Cert Specialty Diagnoses / Procedures Referred By Contact Refer red To Contact Diagnoses ?microscopic colitis ?IBD versus constipation split dose Procedures PRO COLONOSCOPY, DIAGNOSTIC PRO UPPER GI ENDOSCOPY, DIAGNOSTIC COLONOSCOPY, DIAGNOSTIC EGD, UPPER GI ENDOSCOPY Referral ID Status Reason Start Date Expiration Date Visits Requ ested Visits Authorized [id number] 1 1 Encounter Details Date Type Department Care Team Description 06/30/2018 Surgery Gastroenterology at [facility] Sunday Bolaños, COLONOSCOPY FLEXIBLE, [facility] Kade prado MD WITH BX (WRVU 3.66) [place] [address] [facility] [phone] DR GASTROENTEROLOGY [place], [place] [address] Social History Tobacco Use Types [...] Sign Reading Time Taken Comments Blood Pressure 163/76 06/30/2018 1:07 PM EST Pulse 72 06/30/2018 1:07 PM EST Temperature 36.7 ??C (98.1 ??F) 06/30/2018 1:07 PM EST Respiratory Rate 15 06/30/2018 1:07 PM EST Oxygen Saturation 98% 06/30/2018 1:07 PM EST Inhaled Oxygen Concentration - - Weight - - Height - - Body Mass Index - - documented in this encounter Discharge Instructions Discharge InstructionsLeatha Mayorga RN - 06/30/2018 2:56 PM EST UPPER GI ENDOSCOPY WHAT TO EXPECT AFTER THE PROCEDURE Medications You may have a mild sore throat. Ice chips, popsicles, over the counter throat lozenges or spray may help numb your throat. This procedure should not cause a fever. Call your healthcare provider or seek immediate medical attention if: You have trouble swallowing. You have belly pain. Your stools are black or tarlike or have streaks of blood. You are sick to your stomach or cannot keep fluids down. Watch closely for changes in your health, and be sure to contact your doctor IF Your throat still hurts after a day or two You do not get better as expected. Colonoscopy What to expect after the procedure You may feel a little more gassy or bloated than usual. This is normal. You should expect the return of normal bowel function in the 2 to 3 days. Activity Because of the sedation that you received your judgement and reaction time are effected ?? Go home and rest quietly for the remainder of the day. You may resume your normal activities tomorrow. ?? Change from one position to the next slowly. You may lose your balance unexpectedly ?? Be careful on stairs, as you may be unsteady on your feet FOR THE NEXT 24 HRS ?? DO NOT DRIVE OR OPERATE ANY MACHINERY ?? DO NOT DRINK ALCOHOLIC BEVERAGES ?? DO NOT SIGN LEGAL DOCUMENTS ?? If you are a smoker: DO NOT SMOKE WHILE YOU ARE ALONE Diet ?? Start by eating small portions of foods that ordinarily will not upset your stomach . Avoid gas producing foods for the next few days ?? Be gentle with what you choose to start with ?? Drink plenty of fluids ( unless your doctor has told you not to). IV SITE-- slight redness, or tenderness is normal. You can use warm compresses if you become concerned. If the tenderness +/or redness increases or foul drainage and a red streak occurs, please contact your PCP immediately When shoud you call for help? Call 911 anytime you think you may need emergency care. For example If you pass out ( loss of consciousness) If you pass maroon or bloody stools If you have severe belly pain Call your doctor now or seek immediate medical care If your stools are black and tarlike If your stools have streaks of blood, but you did not have a biopsy or any polyps removed If you have belly pain, or your belly is swollen and firm If you vomit If you have a fever If you are very dizzy Watch closely for changes in your health, and be sure to contact your doctor if you have any problems Your doctor will let you know when you will need your next colonoscopy. The results of your test andyour risk for colorectal cancer will help your doctor decide how often you need to be checked. Friday-Friday Same Day Endo [phone] 7a-8p Otherwise contact [phone] and ask to speak to the manager truck endodontist Follow up care is a batres part of your treatment and safety. Be sure to make and go to all appointments, and call your doctor if you are having problems. Discharge instructions reviewed with patient who expresses understanding documented in this encounter Medications at Time of Discharge [...] ketoconazole (NIZORAL) Apply topically. 30 g 2 10/15/2 012 2 % creamIndications: Mixing with Desonide, [...] (THERAGRAN) tablet mouth daily. OXYGEN-AIR DELIVERY by [facility].(Non-Drug; 0 SYSTEMS (HORIZON NASAL Combo Route) route CPAP SYSTEM [facility]) nightly. levothyroxine Take [...] capsuleIndications: Fibromyalgia fibromyalgia TENS UNITS MISC by [facility].(Non-Drug; 0 0 01/13/2019 Combo Route) route. Tens machine Daily for back and leg pantoprazole (PROTONIX) Take 40 mg by mouth 0 01/13/2019 40 mg tablet daily. simvastatin (ZOCOR) 20 Take 20 mg by mouth 0 01/13/2019 mg tablet nightly. documented as of this encounter H&P Notes Sunday Bolaños MD - 06/30/2018 1:52 PM EST Gastroenterology and Hepatology Pre-Procedure History and Physical Exam Procedure: Colonoscopy: EGD Indication: diarrhea and dyspepsia Patient Active Problem List Diagnosis Code ??? [...] disease) K21.9 ??? CLL (chronic lymphocytic leukemia) C91.90 EXAM: HEENT: Airway examined, oropharynx clear Mallampati Score: II (soft palate, uvula, fauces visible) LUNGS: Clear to auscultation HEART: Regular rate and rhythm, normal S1, S2 ABDOMEN: Normal bowel sounds, soft, non tender, non distended, A/P Proceed with the planned endoscopic procedure. ASA 2 - Patient with mild systemic disease with no functional limitations Sedation Plan: anesthesia Risks and benefits of the procedure explained to the patient. Consent signed. documented in this encounter Plan of Treatment Upcoming Encounters Date Type Specialty Care Team Description 03/06/2022 Office Visit Cardiology Lizeth Frazier MD [facility] [place], [place] [address] (Wo rk) 03/18/2022 Office Visit Neurology Donovan Mayer MD [facility] NEUROLOGY DEPT. [place], [place] [address] (Wo rk) 04/24/2022 Appointment Hematology and Oncology 04/24/2022 Office Visit Hematology and Oncology Renea Navarro MD [facility] er HEMATOLOGY/ONCOL [place] DEPT. [place] [id number] (Wo rk) documented as of this encounter Procedures Procedure Name Priority Date/Time Associated Diagnosis Comme nts SPECIMEN TO Routine 06/30/2018 2:49 PM Results f or this PATHOLOGY EST procedure are i n the results section. SURGICAL PATHOLOGY Routine 06/30/2018 2:24 PM Res ults for this REPORT EST procedure are i n the results section. SPECIMEN TO Routine 06/30/2018 2:24 PM Results f or this PATHOLOGY EST procedure are i n the results section. SPECIMEN TO Routine 06/30/2018 2:24 PM Results f or this PATHOLOGY EST procedure are i n the results section. SPECIMEN TO Routine 06/30/2018 2:24 PM Results f or this PATHOLOGY EST procedure are i n the results section. SPECIMEN TO Routine 06/30/2018 2:24 PM Results f or this PATHOLOGY EST procedure are i n the results section. UPPER GI ENDOSCOPY Routine 06/30/2018 2:04 PM Res ults for this EST procedure are i n the results section. EGD WITH BIOPSY 06/30/2018 2:03 PM Diarrhea, (WRVU 2.49) EST unspecified type Weight loss COLONOSCOPY 06/30/2018 2:03 PM Diarrhea, FLEXIBLE, WITH BX EST unspecified ty pe (WRVU 3.66) Weight loss COLONOSCOPY Routine 06/30/2018 2:01 PM Results f or this EST procedure are i n the results section. documented in this encounter Results Specimen to Pathology (06/30/2018 2:49 PM EST) Specimen Anatomical Collection Method Collection Time Receive d Time (Source) Location / / Volume Laterality AP Specimen 06/30/2018 2:49 PM 9 3:59 EST PM EST Narrative [facility] - 06/30/2018 3:59 PM EST Specimen requisition ordered. ??Separate Pathology report to follow Resulting Agency Comment Spec In Lab Sunday Bolaños MD PATHOLOGY/CYTOLOGY ORDERABLE S Performing Organization Address City/State/[place] [address] Surgical Pathology Report (06/30/2018 2:24 PM EST) Component Value Ref Test Analysis Performed At [facility] gist Range Method Time Signature Surgical [id number] ? Location: 4T; EA09; A [facility] Pathology [place] Report The signing pathologist has (i) examined the relevant preparation(s) for the [facility] specimen(s) and (ii) rendered or confirmed the diagnosis(es) . HOSPITAL LABORATORY . ?Surgic al Pathology DIAGNOSIS A - Duodenum, biopsy: - ??Duodenal mucosa, negative for diagnostic abnormality ??. B - Antrum, biopsy: - Antrum-type mucosa with mild reactive gastropathy. C - Stomach, polypectomy: - Fragments of fundic gland polyp. D - Z line, biopsy: - Squamocolumnar junctional mucosa (cardia type) with multilayered epithelium and no evidence of intestinal metaplasia (SEE NOTE). NOTE: Multilayered epithelium is a marker of reflux injury. E - Random colon, biopsy: - Lymphocytic colitis. Electronically signed by: ??Ryan Covarrubias MD Verified: ??07/02/2018 ?Pathologist Performed at: ??-[facility] Dept. of Pathology, [place], [place] CLINICAL INFORMATION Specimen Submitted: A - Duodenum bx, r/o celiac disease B - Antrum, r/o H. Pylori C - Gastric polyps D - Zline, r/o Linares's E - Random colon bx, r/o microscopic colitis Clinical History and Diagnosis: Patient with dyspepsia, history of gastric carcinoid SPECIMEN PROCESSING A - Labeled/Fixative: Duodenum R/O celiac disease, formalin. Quantity/Size: Multiple, 0.2-0.3 cm. Tissue Description: Soft, grossman tissues. Sections/Processing: Submitted en toto ??in 2 cassettes labeled A1-A2. B - Labeled/Fixative: Antrum R/O H. pylori, formalin. Quantity/Size: Two, 0.3-0.5 cm. Tissue Description: Soft, grossman-pink tissues. Sections/Processing: Submitted en toto ??in 1 cassette labeled B1. C - Labeled/Fixative: Gastric polyps, formalin. Quantity/Size: Five, 0.2-0.4 cm. Tissue Description: Soft, grossman-pink tissues. Sections/Processing: Submitted en toto ??in 1 cassette labeled C1. D - Labeled/Fixative: Z line R/O Linares's, formalin. . SPECIMEN PROCESSING Quantity/Size: Multiple, 0.1-0.3 cm. Tissue Description: Soft, grossman tissues. Sections/Processing: Submitted en toto ??in 2 cassettes labeled D1-D2. E - Labeled/Fixative: Random colon biopsy R/O microsco pic colitis, formalin. Quantity/Size: Multiple, 0.2-0.3 cm. Tissue Description: Soft, grossman tissues. Sections/Processing: Submitted en toto ??in 3 cassettes labeled E1-E3. ??pal Specimen (Source) Anatomical Collection Method Collection Time Re ceived Time Location / / Volume Laterality 06/30/2018 2:24 PM EST Sunday Bolaños MD PATHOLOGY/CYTOLOGY ORDERABLE S Performing Organization Address City/[facility]/[place] [address] Specimen to Pathology (06/30/2018 2:24 PM EST) Specimen Anatomical Collection Method Collection Time Receive d Time (Source) Location / / Volume Laterality AP Specimen 06/30/2018 2:24 PM 9 3:59 EST PM EST Narrative [facility] - 06/30/2018 3:59 PM EST Specimen requisition ordered. ??Separate Pathology report to follow Resulting Agency Comment Spec In Lab Sunday Bolaños MD PATHOLOGY/CYTOLOGY ORDERABLE S Performing Organization Address City/[facility] [place] [address] Specimen to Pathology (06/30/2018 2:24 PM EST) Specimen Anatomical Collection Method Collection Time Receive d Time (Source) Location / / Volume Laterality AP Specimen 06/30/2018 2:24 PM 9 3:59 EST PM EST Narrative [facility] - 06/30/2018 3:59 PM EST Specimen requisition ordered. ??Separate Pathology report to follow Resulting Agency Comment Spec In Lab Sunday Bolaños MD PATHOLOGY/CYTOLOGY ORDERABLE S Performing Organization Address City/[facility]/ZIP Code Phon e Number [address] Specimen to Pathology (06/30/2018 2:24 PM EST) Specimen Anatomical Collection Method Collection Time Receive d Time (Source) Location / / Volume Laterality AP Specimen 06/30/2018 2:24 PM 9 3:59 EST PM EST Narrative [facility] OR - 06/30/2018 3:59 PM EST Specimen requisition ordered. ??Separate Pathology report to follow Resulting Agency Comment Spec In Lab Sunday Bolaños MD PATHOLOGY/CYTOLOGY ORDERABLE S Performing Organization Address [facility]/ZIP Code Phon e Number [address] Specimen to Pathology (06/30/2018 2:24 PM EST) Specimen Anatomical Collection Method Collection Time Receive d Time (Source) Location / / Volume Laterality AP Specimen 06/30/2018 2:24 PM 9 3:59 EST PM EST Narrative [facility] OR - 06/30/2018 3:59 PM EST Specimen requisition ordered. ??Separate Pathology report to follow Resulting Agency Comment Spec In Lab Sunday Bolaños MD PATHOLOGY/CYTOLOGY ORDERABLE S Performing Organization Address City/[facility]/ZIP Code Phon e Number [address] UPPER GI ENDOSCOPY (06/30/2018 2:04 PM EST) [facility] Method Time Signature UPPER GI [facility] ENDOSCOPY Endoscopy Procedure Date: 06/30/2018 2:04 PM ? Patient Name: Saundra Blanton ? Date of : 1950 ? Age: 68 ? Order #: [id number] ? Instrument Name: [id number] ? Procedure: ? Upper GI endoscopy Indications: ? Dyspepsia, diarrhea, h/o gastric ? carcinoid Providers: ? Sunday Bolaños MD, Tammy ? Roman Smith Aimee Johnson Referring MD: ?Suri Osman r Medicines: ? Propofol per Anesthesia Complications: ? No immediate complications. Procedure: ? The procedure, indications, benefi ts, ? risks and alternatives were e xplained ? to the patient. Specifically ? discussed were potential ? complications including, but not ? limited to, bleeding, perfora tion, ? infection, missing a cancer, and ? adverse medication reactions. The ? Endoscope was introduced thro [facility] the ? mouth, and advanced to the ird part ? of duodenum. The patient tole rated ? the procedure well. The upper GI ? endoscopy was accomplished wi out ? difficulty. The patient trish ated the ? procedure well. ? Findings: ? The examined esophagus was normal. ? The Z-line was irregular and was found 38 cm from the ? incisors. Biopsies were taken with a cold forceps for ? histology. ? A medium-sized hiatal hernia was present from 38-42 ? cm. ? Multiple medium to large pedunculated polyps with no ? stigmata of recent bleeding were found in the gastric ? fundus and in the gastric body. These all had the ? appearance of benign fundic gland polyps Biopsies ? were taken with a cold forceps for histology of a few ? of the larger polyps. ? The examined duodenum was normal. Biopsies were taken ? with a cold forceps for histology. ? Moderate Sedation: ? Not applicable - See Anesthesia documentation Impression: ?- Normal esophagus. ? - Z-line irregular, 38 cm fro m the ? incisors. Biopsied. ? - Medium-sized hiatal hernia. ? - Multiple gastric polyps. Bi opsied. ? - Normal examined duodenum. B iopsied. Recommendation: ?- Await pathology results. ? Attending Participation: ? I personally performed the entire procedure. ? Sunday Bolaños MD 06/30/2018 3:00:33 PM This report has been signed electronically. Number of Addenda: 0 Note Initiated On: 06/30/2018 2:04 PM Specimen (Source) Anatomical Collection Method Collection Time Re ceived Time Location / / Volume Laterality 06/30/2018 2:04 PM EST Ingrid Espinosa APRN GENERAL SURGICAL ORDERABLES Performing Organization Address City/State/[facility] Code Phon e Number [facility] COLONOSCOPY (06/30/2018 2:01 PM EST) [facility] Method Time Signature COLONOSCOPY [facility] Endoscopy Procedure Date: 06/30/2018 2:01 PM ? Patient Name: Saundra Blanton ? N: [id number] ? Date of : 1950 ? Age: 68 ? Order #: [id number] ? Instrument Name: [id number] ? Procedure: ? Colonoscopy Indications: ? Chronic diarrhea Providers: ? Sunday Bolaños MD, Tammy ? Roman Smith Aimee Johnson Referring MD: ?Ingrid Espinosa, Suri Wagner r Medicines: ? Propofol per Anesthesia Complications: ? No immediate complications. Procedure: ? The procedure, indications, benefi ts, ? risks and alternatives were e xplained ? to the patient. Specifically ? discussed were potential ? complications including, but not ? limited to, bleeding, perfora tion, ? infection, missing a cancer, and ? adverse medication reactions. The ? patient was placed in the lef t ? lateral decubitus position, a nd a ? digital rectal exam was perfo rmed. ? The Colonoscope was inserted in the ? anus and under direct visuali zation, ? advanced to the terminal ileu m. ? Careful inspection was made a s the ? colonoscope was withdrawn. Th e ? colonoscopy was performed wit hout ? difficulty. The patient trish ated the ? procedure well. The quality o f the ? bowel preparation was evaluat ed using ? the BBPS ([place] Bowel Prepar ation ? Scale) with scores of: Right Colon = ? 3, Transverse Colon = 3 and L eft ? Colon = 3 (entire mucosa seen well ? with no residual staining, sm all ? fragments of stool or opaque liquid). ? The total BBPS score equals 9 . Scope ? withdrawal time was 12 minute s. ? Findings: ? The perianal and digital rectal examinations were ? normal. ? The colon mucosa (entire examined portion) appeared ? normal. Biopsies were taken with a cold forceps for ? histology. ? The terminal ileum appeared normal. ? Multiple small and large-mouthed diverticula were ? found in the sigmoid colon and descending colon. ? Internal hemorrhoids were found during retroflexion. ? The hemorrhoids were medium-sized. ? Moderate Sedation: ? Not applicable - See Anesthesia documentation Impression: ?- The entire examined colon is ? normal. Biopsied. ? - The examined portion of the ileum ? was normal. ? - Diverticulosis in the sigmo id colon ? and in the descending colon. ? - Internal hemorrhoids. Recommendation: ?- Await pathology results. ? Attending Participation: ? I personally performed the entire procedure. ? Sunday Bolaños MD 06/30/2018 3:02:47 PM This report has been signed electronically. Number of Addenda: 0 Note Initiated On: 06/30/2018 2:01 PM Specimen (Source) Anatomical Collection Method Collection Time Re ceived Time Location / / Volume Laterality 06/30/2018 2:01 PM EST Ingrid Espinosa APRN GENERAL SURGICAL ORDERABLES Performing Organization Address City/State/ZIP Code Phon e Number [facility] documented in this encounter Visit Diagnoses Diagnosis Diarrhea, unspecified type Weight loss Loss of weight documented in this encounter Administered Medications Inactive Administered Medications - up to 3 most recent administrations Medication Order MAR Action Action Date Dose Rate Site lactated Ringers infusion New Bag 06/30/2018 2:02 PM EST 100 mL/hr, Intravenous, CONTINUOUS, Starting on Tu06/30/18 at 1330, Until Fri06/30/18 at 1526, Endoscopy (Day of Procedure) New Bag 06/30/2018 1:12 PM EST 100 mL/hr 100 mL/hr documented in this encounter Active and Recently Administered Medications Times are shown in EST. Continuous Medication Order 06/28/2018 06/29/2018 06/30/2018 lactated Ringers infusion (CANCELED) 1312 (New Bag - Provider: Laura Mays RN)1402 (New Bag - Provider: Boris Chicas CRNA)1438 (Anesthesia Volume Adjustment - Provider: Boris Chicas CRNA) 100 mL/hr, at 100 mL/hr, Intravenous, CO NTINUOUS, Starting 06/30/18 at 1330, Until 06/30/18 at 1526, Endo (Day of Procedure) documented in this encounter Care Teams Commercial [employer]ammer Relationship Specialty Start Date End Date Ingrid Espinosa APRN PCP - General Internal Medicine 07/28/[address] [place] [address] documented as of this encounter
--- OUTSIDE RECORDS SUMMARY | 2021-12-21 00:35 | XMS_ITS | Encounter Summary ---
:1950 Author Organization [facility] Address [address] [place] [address] Care Team Providers Name Role Phone Ingrid Espinosa Uriel PALACIOS Primary Care Provider Reason for Visit Reason Comments Advice Only Consultation (Routine) - Closed Specialty Diagnoses / Procedures Referred By Contact Refer red To Contact Hematology and Diagnoses Carcinoid tumor of stomach, unspecified whether malignant [place], [facility] [place] Hem Onc 3k Oncology MD Virgilio [facility] [address] [place] HEMATOLOGY/ON[place]OGY [id number] [place] [address] Referral ID Status Reason Start Date Expiration Date Visits V isits Requested Authorized [id number] Closed Consult, 12/10/2018 12/10/2019 1 1 Test & Treat Encounter Details Date Type Department Care Team Description 01/13/2019 Office Visit Hematology and Richie Rodriguez, Primary stomach Oncology at [facility] [place] malignant carcinoid [facility] [address] [place] [id number] [place] [address] Social History Tobacco Use Types [...] Sign Reading Time Taken Comments Blood Pressure 126/61 01/13/2019 2:59 PM EDT Pulse 73 01/13/2019 2:59 PM EDT Temperature 36.9 ??C (98.4 ??F) 01/13/2019 2:59 PM EDT Respiratory Rate 20 01/13/2019 2:59 PM EDT Oxygen Saturation 98% 01/13/2019 2:59 PM EDT Inhaled Oxygen Concentration - - Weight 113.1 kg (249 lb 6.4 oz) 01/13/2019 2:59 PM EDT Height 177 cm (5' 9.69) 01/13/2019 2:59 PM EDT Body Mass Index 36.11 01/13/2019 2:59 PM EDT documented in this encounter Progress Notes Richie Rodriguez MD - 01/13/2019 2:45 PM EDT Subjective: Patient ID: Saundra Blanton is a 68 y.o. female. Problem List: 1. Carcinoid tumor, gastric A. Presented in 2006 with upper abdominal pain, vomiting and diarrhea Initially had an EGD by Dr. Scruggs in 02/2007 Path - A.??Stomach, antrum, biopsy: No specific pathologic features. See microscopic and comment. B.??Stomach, body, biopsy: ? No specific pathologic features. C.??Stomach, fundus, biopsy: Body type mucosa with foveolar hyperplasia. D.??Stomach, site not specified, biopsy: Neuroendocrine tumor.? E.?Esophagus, 38 cm, biopsy: Squamocolumnar mucosa with mild chronic inflammation. Then seen by Dr. Frazier at [facility] Upper EUS 03/30/2007 - Summary: ?? Normal esophagus. ?? In the body of the stomach there was a 1cm slighlty raised erythematous lesion - see EUS comments. ?? In the body there were several small polpys. Biopsy taken. ?? In the antrum, there were several small polyps. Biopsy taken. ?? In the fundus there were several small polyps. Biopsy taken. ?? Normal duodenum. ?? EUS - mucosal gastric body lesion s/p EMR. Path - A.?Stomach, body, polyp, biopsy: 1.?Well differentiated endocrine neoplasm (carcinoid) (0.3 cm).?See comment. ? - Tumor appears confined to mucosa and submucosa. - Lymphovascular invasion is not identified. - Surgical resection margin negative for tumor. ? B.? Stomach, antrum, biopsy: ? 1.? Antral mucosa with reactive foveolar hyperplasia.?See comment. ? C.? Stomach, body, polypectomy: ? 1.? Fundic gland polyp with reactive epithelial changes and focal acute inflammation.? See comment. ? D.? Stomach, fundus, biopsy: ?1.? Fundic mucosa with reactive epithelial changes. No further therapy needed. Octreoscan 06/16/18 - IMPRESSION No evidence for somatostatin receptor expressing malignancy or metastasis. EGD 06/30/18 - Impression: - Normal esophagus. ?- Z-line irregular, 38 cm from the incisors. Biopsied. ?- Medium-sized hiatal hernia. ?- Multiple gastric polyps. Biopsied. ?- Normal examined duodenum. Biopsied. Path - A - Duodenum, biopsy: - ??Duodenal mucosa, [...] epithelium is a marker of reflux injury. 2. CLL A. 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 CBC on 09/24/17 revealed WBC of 20.5, with 84% lymphocytes (ALC of 17.4), Hgb of 14.8, MCV: 90, Plt count: 159. She is referred to [facility] for further evaluation of the incidentally noted TIAN and lymphocytosis. B. Work up Imaging: CT a/p: (07/22/17): mildly enlarged retroperitoneal , b/l iliac, inguinal LNs, unchanged compared to CT on 03/30/17 (the size of LNs not mentioned); mild splenomegaly at 13.2cm; b/l renal angiomyolipomas stable compared to 03/2017, b/l non obstructing renal stones; Fatty liver, large hiatal hernia; Peripheral Blood flow: Monoclonal, kappa-restricted CD5+ CD23+ B-cell population , consistent with CLL. 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 3. HTN 4. Hypothyroidism 5. H/o DVT Provoked LLE DVT post- after 1 month bedrest and , 1986. Treated for a number of years per pt. R popliteal and posterior tibial DVT 2005. Repeat U/S OSH 2006 normal. 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 Renal angiomyolipomas, follows with Urology at [facility] [place], Dr. Du 7. Hyperlipidemia 8. Dysplastic nevus resected from left thigh in 02/2018. Follows with Dermatology at [facility] [place] 9. Colonoscopy 06/30/18 - Impression:??- The entire examined colon is normal. Biopsied. ?- The examined portion of the ileum was normal. ?- Diverticulosis in the sigmoid colon and in the descending colon. ?- Internal hemorrhoids. Path - Random colon, biopsy: - Lymphocytic colitis. 10. Lumbar radiculopathy 11.Peripheral neuropathy in LE related to disc disease 12. GERD HPI Ms. Blanton is seen for evaluation and management of carcinoid tumor. The history is summarized above. On presentation today, she is by herself. She is feeling pretty well overall. The problems that she was having with diarrhea earlier in the year are much better. She stopped zocor, duloxetine and protonix, started colestipol and changed to a Fodmap diet. She feels that all of this has helped. With this, she has 0-2 BMs per day and the stools are generally formed. She has not had to use the immodium. Her appetite is good. She has lost about 12# which is intentional, through dietary change and exercise. She walks up to 2 miles at a time and goes to the pool. She is trying to get up to 150 minutes of exercise per week. She has pain in her right foot which has been present since 2001 when she had a rup tured disc in her back. No problems with SOB. She denies flushing. 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 She appears well- developed and well-nourished. No distress. HENT: Head: Normocephalic and atraumatic. Mouth/Throat: Oropharynx is clear and moist. No oropharyngeal exudate. Eyes: No scleral icterus. Cardiovascular: Normal rate and regular rhythm. Pulmonary/Chest: Effort normal. No respiratory distress. She has no wheezes. She has no rales. Abdominal: Soft. She exhibits no distension and no mass. There is no tenderness. There is no guarding. Musculoskeletal: She exhibits no edema. Lymphadenopathy: She has no cervical adenopathy. She has no axillary adenopathy. Right: No supraclavicular adenopathy present. Left: No supraclavicular adenopathy present. Neurological: She is alert and oriented to person, place, and time. Coordination normal. Skin: Skin is warm and dry. No rash noted. Psychiatric: She has a normal mood and affect. Her behavior is normal. Vitals reviewed. Assessment and Plan: Ms. Blanton is a 68 yo female seen for evaluation and management of carcinoid tumor. Her PMHx includes CLL, lymphocytic colitis, renal angiomyolipomas, dysplastic nevus removed from theleft thigh, gastric fundic gland polyps, HTN, Hypothyroidism, Hyperlipidemia and h/o DVT. The carcinoid tumor was found at the time of EGD in 2006 which was done for evaluation of upper abdominal pain. I don't have a procedure note but per a consult note at [facility] in 2006, there was a 10 mm polyp at the gastric fundic/body junction which was either biopsied and the pathology showed a neuroendocrine tumor. She was referred to Dr. Frazier at [facility] and underwent an upper EUS. She was found to have a slightly raised 1 cm erythematous lesion in the body of the stomach which was removed by EMR. Thepathology showed a 3 mm well differentiated neuroendocrine tumor , confined to the mucosa/submucosa with negative margins and no evidence of LVI. Laboratory evaluation included testing for pancreatic po lypeptide, gastrin, VIP, parietal cell Ab and glucagon, all of which were WNL with the exception of the glucagon which was mildly elevated at 69 (ULN - 60). 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 She did not have further intervention and has been followed since the, including with periodic EGD and has not had evidence of disease recurrence. The most recent CT abd/pelvis was done in 07/2017. There was a suggestion of fatty infiltration of the liver but no masses seen. There was periaortic, iliac and inguinal adenopathy, stable compared with 03/2017. She had an octreoscan in 05/2018 which was negative, including no uptake in the LNs which may be related to the CLL. She had an EGD in 06/2018 which showed multiple gastric polyps, biopsy of which showed fragments of fundic gland polyp. There does not appear to have been evidence of carcinoid. She has had problems with diarrhea for many years. A colonoscopy done in 06/2018 was unremarkable butrandom colon biopsies were consistent with lymphocytic colitis. The diarrhea has resolved with medication change and with continued use of colestipol. She appears to be doing well clinically from the standpoint of the gastric carcinoid, now 12 years s/p endoscopic resection of a 3 mm lesion. There does not appear to be any evidence of disease recurrence. The primary question today seems to be one of appropriate f/u. I don't think at this point that there is a role for routine imaging or labs. I will plan to speak with GI about f/u EGDs and will getback to her. Addendum: Discussed with Dr. Kemp. Given duration of time since removal of the carcinoid, he doesnot feel that she needs routine surveillance, either for the carcinoid or because of the fundic gland polyps. I will call her to discuss. Addendum: Above discussed with Ms. Blanton. She is pleased not to need further testing. For now, she will follow up with her PCP and other physicians. I am not planning further routine surveillance for the carcinoid and have not arranged a f/u visit. However, I assured that we are available to her if she has concerns or questions and are happy to see her in the future if we can be of help. documented in this encounter Plan of Treatment Upcoming Encounters Date Type Specialty Care Team Description 03/06/2022 Office Visit Cardiology Lizeth Frazier MD [facility] Gal[place] 0375 (Wo rk) 03/18/2022 Office Visit Neurology Donovan Mayer MD [facility] NEUROLOGY DEPT. [place], [place] [address] (Wo rk) 04/24/2022 Appointment Hematology and Oncology 04/24/2022 Office Visit Hematology and Oncology Renea Navarro MD [facility] HEMATOLOGY/ONCOL OGY DEPT. [place], [place] [address] (Wo rk) documented as of this encounter Visit Diagnoses Diagnosis Primary stomach malignant carcinoid tumo r Malignant carcinoid tumor of the stomach documented in this encounter Care Teams Special Delivery Messenger Relationship Specialty Start Date End Date Ingrid Espinosa APRN PCP - General Internal Medicine 07/28/[address] [place] [address] documented as of this encounter
--- OUTSIDE RECORDS SUMMARY | 2021-12-21 00:35 | XMS_ITS | Encounter Summary ---
:1950 Author Organization [place] [address] Care Team Providers Name Role Phone Guillermina Espinosacresencio Trevino APRN Primary Care Provider Reason for Referral Consultation (Routine) - Closed Specialty Diagnoses / Procedures Referred By Contact Refer red To Contact Hematology and Diagnoses Carcinoid tumor of stomach, unspecified whether malignant Ramon [facility] Hem Onc 3k Oncology MD Virgilio [facility] [address] [place] HEMATOLOGY/ONCOLOGY [id number] [place] [address] Referral ID Status Reason Start Date Expiration Date Visits V isits Requested Authorized [id number] Closed Consult, 12/10/2018 12/10/2019 1 1 Test & Treat Reason for Visit Reason Comments Follow-up Encounter Details Date Type Department Care Team Description 12/09/2018 Office Visit Hematology and Ramon, Carcinoid tu mor of Oncology at [facility] MD Virgilio stomach, unspecified [facility] [address] [place] HEMATOLOGY/ONCOLOG [id number] Y DEPT. [phone] [place], [place] [address] Social History Tobacco Use Types [...] Sign Reading Time Taken Comments Blood Pressure 133/62 12/09/2018 3:39 PM EDT Pulse 66 12/09/2018 3:39 PM EDT Temperature 36.9 ??C (98.4 ??F) 12/09/2018 3:39 PM EDT Respiratory Rate 18 12/09/2018 3:39 PM EDT Oxygen Saturation 98% 12/09/2018 3:39 PM EDT Inhaled Oxygen Concentration - - Weight 112.3 kg (247 lb 9.6 oz) 12/09/2018 3:39 PM EDT Height 177.8 cm (5' 10) 12/09/2018 3:39 PM EDT Body Mass Index 35.53 12/09/2018 3:39 PM EDT documented in this encounter Progress Notes Virgilio Navarro MD - 12/09/2018 3:30 PM EDT Images from the original note were not included. HEMATOLOGY FOLLOW UP VISIT NOTE REASON FOR VISIT: Saundra Blanton is a 68 y.o. female referred by Ingrid Espinosa APRN for f/up for CLL. HEM/ONC PROBLEM LIST: 1) CLL: ?? 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 CBC on 09/24/17 revealed WBC of 20.5, with 84% lymphocytes (ALC of 17.4), Hgb of 14.8, MCV: 90, Plt count: 159. 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 Follows with Isha Lutz, [facility] surgical associates, at [facility] and with Suri Newton APRN at [facility] ?? EGD: 06/30/18: Notable for medium-sized hiatal hernia, multiple gastric polyps. Biopsied. Path: fundic gland polyps. ?? Colonoscopy : 06/30/18: Diverticulosis in the sigmoid colon and in the descending colon ; Internalhemorrhoids ?? NM octreoscan: 06/16/18: No evidence of disease. INTERIM HISTORY: Saundra Blanton is a 68 y.o. female with PMH of carcinoid tumor of stomach, bilateral angiomyolipomas,being followed by urology at [facility], presenting for f/up for CLL. In office today, she reports that since last seen, she was treated for sinusitis in late September with 10day course of Antibiotics. - Energy: stable; Can walk a mile easily; - No B symptoms; - No lumps and bumps that she noticed since last seen. - Continues to have chronic, intermittent diarrhea, no change and relates that she was diagnosed with colitis. - No flushing or no SOB or wheezing; - No active cardiac/resp/GI issues ; Rest of the ROS : negative; REVIEW OF SYSTEMS Constitutional --Energy level: good --Pain: chronic back pain and right LE pain as above --Fevers/chills/sweats: No --Unexpected weight loss or gain: No Eyes - No change in vision Ears, nose, throat - No change hearing, no oral or throat pain or thrush Cardiovascular --SOB: No --HARP: No --chest pain: No Respiratory --Cough: No --SOB, HARP: No Gastrointestinal --Appetite: good --Nausea/vomiting/diarrhea/constipation: chronic diarrhea as above - Abd pain: No Genitourinary --Dysuria or hematuria: No Musculoskeletal --Muscle pain or weakness: No --Joint pain or swelling: No Immune System --Recent infections: No Hematology/Lymph --Bruising/bleeding/melena: No --Enlarged nodes or other masses: No Skin --Rashes or petechiae: No Neuro - No Other ROS: All negative PROBLEM LIST Patient Active Problem List Diagnosis Code ??? [...] K21.9 ??? CLL (chronic lymphocytic leukemia) C91.90 MEDICATIONS ??? ranitidine (ZANTAC) 150 mg Tablet ??? Bifidobacterium infantis (ALIGN) 4 mg Capsule ??? gabapentin (NEURONTIN) 300 mg Capsule ??? calcium carbonate (OS-ABENA) 500 mg calcium (1,250 mg) Tablet ??? diphenhydrAMINE (BENADRYL) 50 mg Capsule ??? ezetimibe (ZETIA) 10 mg Tablet ??? losartan (COZAAR) 100 mg Tablet ??? colestipol (COLESTID) 1 gram Tablet ??? acetaminophen/diphenhydramine (TYLENOL PM ORAL) ??? cholecalciferol, Vitamin D3, 1,000 unit Tablet ??? acetaminophen (TYLENOL) 500 mg tablet ??? OXYGEN-AIR DELIVERY SYSTEMS (HORIZON NASAL CPAP SYSTEM MISC) ??? TENS UNITS MISC ??? levothyroxine (SYNTHROID) 25 mcg tablet ??? oxyCODONE-acetaminophen (PERCOCET) 5-325 mg Tablet ??? valsartan (DIOVAN) 160 mg Tablet ??? irbesartan (AVAPRO) 150 mg Tablet ??? colestipol (COLESTID) 1 gram Tablet ??? melatonin 3 mg Tablet ??? Calcium 500 mg Tab ??? nystatin (MYCOSTATIN) powder ??? ketoconazole (NIZORAL) 2 % cream ??? desonide (DESOWEN) 0.05 % cream ??? DULoxetine (CYMBALTA) 60 mg capsule ??? loperamide (IMMODIUM) 2 mg tablet ??? multivitamin (THERAGRAN) tablet ??? pantoprazole (PROTONIX) 40 mg tablet ??? simvastatin (ZOCOR) 20 mg tablet ALLERGIES/ADR Allergies Allergen Reactions ??? Latex Rash and Other (See Comments) Red welts ??? Sulfa (Sulfonamide Antibiotics) Rash ??? Codeine Other (See Comments) Bad dreams ??? Adhesive Tape-Silicones Rash ??? Gluten ??? Hydrocodone-Acetaminophen Other (See Comments) Mental Status Changes ??? Penicillins ??? Unclassified Drug Other (See Comments) gluten PERSONAL and SOCIAL HISTORY Social History Socioeconomic History ??? Marital status: Single Spouse name: Not on file ??? Number of children: 1 ??? Years of education: Not on file ??? Highest education level: Not on file Occupational History ??? 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 Financial resource strain: Not on file ??? Food insecurity: Worry: Not on file Inability: Not on file ??? Transportation needs: Medical: Not on file Non-medical: Not on file Tobacco Use ??? Smoking status: Never Smoker ??? Smokeless tobacco: Never Used Substance and Sexual Activity ??? Alcohol use: No Frequency: Never ??? Drug use: No Comment: denies illicit drug use or abuse ??? Sexual activity: Not on file Comment: deferred Lifestyle ??? Physical activity: Days per week: Not on file Minutes per session: Not on file ??? Stress: Not on file Relationships ??? Social connections: Talks on phone: Not on file Gets together: Not on file Attends confucianist service: Not on file Active member of club or organization: Not on file Attends meetings of clubs or organizations: Not on file Relationship status: Not on file ??? Intimate partner violence: Fear of current or ex partner: Not on file Emotionally abused: Not on file Physically abused: Not on file Forced sexual activity: Not on file Other Topics Concern ??? Not on file Social History Narrative ??? 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 [facility] Contact Permission:?? OK to leave message on machine. ?? FAMILY HISTORY Family History Problem Relation Age of Onset ??? Heart Disease Mother ??? Arthritis Mother ??? Heart Disease Father ??? Arthritis Father ??? Arthritis Sister ??? Depression Brother ?? One daughter: she has Silva Danlos syn; PHYSICAL EXAM VITAL SIGNS: Blood pressure 133/62, pulse 66, temperature 36.9 ??C (98.4 ??F), temperature source Oral, resp. rate 18, height 177.8 cm (5' 10), weight 112.3 kg (247 lb 9.6 oz), SpO2 98 %. ECOG PS: 1 GENERAL: Saundra Blanton is a well-appearing 68 y.o. female in no acute distress. HEENT: [...] brace; SKIN: No rashes, bruises or petechiae. LYMPH: No palpable cervical/axillary/inguinal lymphadenopathy. NEUROLOGICAL: Alert and oriented to person, place and time; No focal neurological deficits; PSYCHIATRIC: normal affect and mood LABORATORY Recent Results (from the past 72 hour(s)) Lactate Dehydrogenase Result Value Ref Range LDH 231 (H) 110 - 220 unit/L Comprehensive metabolic panel (non-fasting) Result Value Ref Range Glucose Lvl 92 65 - 199 mg/dL BUN 18 8 - 18 mg/dL Creatinine 1.09 0.70 - 1.20 mg/dL Sodium 147 (H) 135 - 145 mmol/L Potassium 4.3 3.5 - 5.0 mmol/L Chloride 109 (H) 98 - 107 mmol/L CO2 26 22 - 31 mmol/L Anion Gap 12 5 - 15 mmol/L Calcium 10.1 8.5 - 10.5 mg/dL Total Protein 7.3 6.1 - 8.0 gm/dL Albumin 4.6 3.2 - 5.2 gm/dL AST 22 0 - 30 unit/L ALT 13 0 - 30 unit/L Alk Phos 65 40 - 104 unit/L Total Bilirubin 0.3 0.2 - 1.3 mg/dL eGFR 52 (L) >=60 mL/min/1.73 m?? eGFR 60 >=60 mL/min/1.73 m?? Direct antiglobulin test Result Value Ref Range LILIAN Negative Hemogram Result Value Ref Range WBC 35.8 (CRIT) 4.0 - 9.5 x10(3)/mcL RBC 4.67 4.00 - 5.21 x10(6)/mcL Hemoglobin 14.0 11.7 - 15.5 gm/dL Hematocrit 43.1 35.7 - 45.8 % MCV 92.3 82.6 - 94.4 fL MCH 30.0 27.1 - 32.0 pg MCHC 32.5 31.7 - 35.0 gm/dL Platelets 124 (L) 145 - 357 x10(3)/mcL RDWSD 45.1 37.0 - 46.0 fL RDWCV 13.3 11.5 - 14.1 % MPV 10.8 7.6 - 12.9 fL nRBC % Auto 0.1 % nRBC Abs Auto 0.020 (H) 0.000 - 0.000 x10(3)/mcL Differential, Automated Result Value Ref Range Neutrophils % 9.2 % Neutr Abs (ANC) 3.28 1.70 - 6.10 x10(3)/mcL Lymphocytes % 87.8 % Lymphocytes Abs 31.4 (H) 0.9 - 3.2 x10(3)/mcL Monocytes % 2.2 % Monocyte Abs 0.8 0.3 - 0.9 x10(3)/mcL Eosinophils % 0.5 % Eosinophils Abs 0.2 0.0 - 0.4 x10(3)/mcL Basophils % 0.2 % Basophils Abs 0.1 0.0 - 0.1 x10(3)/mcL Immature Gran % 0.10 % Betty Gran Abs 0.05 (H) 0.00 - 0.04 x10(3)/mcL Scan, Peripheral Blood Result Value Ref Range Plat Estimate Decreased RBC Morphology Normal Smudge Cells Present ASSESSMENT & PLANS: # CLL, 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 11q23 deletion, CD38+, ZAP70 + predicts poor prognosis where as 13q deletion suggest good prognosis. Clinically Ms. Blanton remains asymptomatic. No palpable lymphadenopathy or HSM on exam (had CT in 07/2017 showing mild splenomegaly and ITAN). I reviewed the labs with her from today: H&H remined normal, mild. stable thrombocytopenia with platelet count of 124k today; ALC 31.4k today , stable compared to 5 months ago. LDH slightly increased to 231k. Overall, her CLL is stable compared to 5 months ago. I reviewed the indications to initiate treatment for CLL with Ms. Blanton and she does not have any indication now. So, we will continue watch and wait approach. I will see her in 3-4 months with rpt CBC,CMP, LDH, or sooner as needed. # Hypernatremia and hyperchloremia : Advised pt to decrease salt intake and drink plenty of fluids and have repeat BMP checked next week at her PCP's office. 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 no h/o frequent infections; will monitor; Will recheck Igs at her next visit, prior to winter. # Carcinoid tumor of stomach: No evidence of disease based on recent studies. Placed referral to GI Onc per her request. # b/ Angiomyolipomas : being followed by urology; Recommendations: - No indications to initiate treatment for CLL at this time - Repeat BMP on 12/11/18 or early next week at PCP's office. - Referral to GI Onc placed - RTC in 3-4m with labs or sooner as needed. I reviewed my impression and recommendations with Saundra Nelson Harvinder and answered all the questions to her satisfaction. she understands the plan, and knows that she can contact us at any time should any new symptoms, concerns or questions arise. Virgilio Navarro MD [facility] CC: Ingrid Espinosa APRN documented in this encounter Plan of Treatment Upcoming Encounters Date Type Specialty Care Team Description 03/06/2022 Office Visit Cardiology Lizeth Frazier MD [facility] [place] [phone] (Wo rk) 03/18/2022 Office Visit Neurology Donovan Mayer MD [facility] NEUROLOGY DEPT. [place], [place] [address] (Wo rk) 04/24/2022 Appointment Hematology and Oncology 04/24/2022 Office Visit Hematology and Oncology Renea Navarro MD [facility] HEMATOLOGY/ONCOL OGY DEPT. [place], [place] [address] (Wo rk) Scheduled Referrals Name Type Priority Associated Diagnoses Order S chedule Referral to Outpatient Referral Routine Carcinoid tumor of Or dered: Hematology and stomach, unspecified 12/10 Oncology whether malignant documented as of this encounter Visit Diagnoses Diagnosis Carcinoid tumor of stomach, unspecified whether malignant documented in this encounter Care Teams Girl Friday Relationship Specialty Start Date End Date Ingrid Espinosa APRN PCP - General Internal Medicine 07/28/[address] [place] [address] documented as of this encounter
--- OUTSIDE RECORDS SUMMARY | 2021-12-21 00:35 | XMS_ITS | Encounter Summary ---
:1950 Author Organization [facility] [place] [address] Care Team Providers Name Role Phone Ingrid Espinosa SUZANNE Primary Care Provider Encounter Details Date Type Department Care Team Description 07/15/2018 Office Visit Hematology and Ramon CLL (chronic Oncology at [facility] MD Virgilio lymphocytic leukemia) [facility] [address] [place], [place] HEMATOLOGY/ONCOLOG [id number] Y DEPT. [phone] [place], [place] [address] Social History Tobacco Use Types [...] Sign Reading Time Taken Comments Blood Pressure 143/67 07/15/2018 1:04 PM EST Pulse 72 07/15/2018 1:04 PM EST Temperature 36.6 ??C (97.9 ??F) 07/15/2018 1:04 PM EST Respiratory Rate 18 07/15/2018 1:04 PM EST Oxygen Saturation 98% 07/15/2018 1:04 PM EST Inhaled Oxygen Concentration - - Weight 112.1 kg (247 lb 3.2 oz) 07/15/2018 1:04 PM EST Height 177.5 cm (5' 9.88) 07/15/2018 1:04 PM EST Body Mass Index 35.59 07/15/2018 1:04 PM EST documented in this encounter Progress Notes Virgilio Navarro MD - 07/15/2018 1:30 PM EST Images from the original note were not included. HEMATOLOGY FOLLOW UP VISIT NOTE REASON FOR VISIT: Saundra Dhaliwal is a 68 y.o. female referred by Ingrid Espinosa APRN for f/up for CLL. HEM/ONC PROBLEM LIST: 1) CLL: ?? 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 CBC on 09/24/17 revealed WBC of 20.5, with 84% lymphocytes (ALC of 17.4), Hgb of 14.8, MCV: 90, Plt count: 159. She is referred to [facility] for further evaluation of the incidentally noted TIAN and lymphocytosis. ?? Work up ?? Imaging: CT a/p: (07/22/17): mildly enlarged retroperitoneal , b/l iliac, inguinal LNs, unchanged compared to CT on 03/30/17 (the size of LNs not mentioned); mild splenomegaly at 13.2cm; b/l renal angiomyolipomas stable compared to 03/2017, b/l non obstructing renal stones; Fatty liver, large hiatal hernia; ?? PB flow: Monoclonal, kappa-restricted CD5+ CD23+ B-cell population , consistent with CLL. ZAP70 positive, CD38 positive (partial, 25%); ?? LDH and B2MG: normal ?? FISH: POSITIVE for SERGO/11q22.3 deletion, and 13q14.3 deletion ?? 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 Follows with [facility], at [facility] and with Suri Newton APRN at [facility] ?? EGD: 06/30/18: Notable for medium-sized hiatal hernia, multiple gastric polyps. Biopsied. Path: fundic gland polyps. ?? Colonoscopy : 06/30/18: Diverticulosis in the sigmoid colon and in the descending colon ; Internalhemorrhoids ?? NM octreoscan: 06/16/18: No evidence of disease. INTERIM HISTORY: Saundra Dhaliwal is a 68 y.o. female with PMH of carcinoid tumor of stomach, bilateral angiomyolipomas,being followed by urology at [facility], presenting for f/up for CLL. Since last seen, she reports doing well. She relates to me that she had EGD, colo and NM octreoscan recently. - Energy: stable; Can walk a mile easily; - No B symptoms; - No lumps and bumps since last seen. - No infections since last seen; - Continues to have chronic, intermittent diarrhea, no change; - No flushing or no SOB or [...] CLL (chronic lymphocytic leukemia) C91.90 MEDICATIONS ??? losartan (COZAAR) 100 mg Tablet ??? colestipol (COLESTID) 1 gram Tablet ??? gabapentin (NEURONTIN) 300 mg Capsule ??? irbesartan (AVAPRO) 150 mg Tablet ??? colestipol (COLESTID) 1 gram Tablet ??? acetaminophen/diphenhydramine (TYLENOL PM ORAL) ??? cholecalciferol, Vitamin D3, 1,000 unit Tablet ??? Calcium 500 mg Tab ??? nystatin (MYCOSTATIN) powder ??? ketoconazole (NIZORAL) 2 % cream ??? desonide (DESOWEN) 0.05 % cream ??? acetaminophen (TYLENOL) 500 mg tablet ??? DULoxetine (CYMBALTA) 60 mg capsule ??? loperamide (IMMODIUM) 2 mg tablet ??? multivitamin (THERAGRAN) tablet ??? OXYGEN-AIR DELIVERY SYSTEMS (HORIZON NASAL CPAP SYSTEM MISC) ??? TENS UNITS MISC ??? pantoprazole (PROTONIX) 40 mg tablet ??? simvastatin (ZOCOR) 20 mg tablet ??? levothyroxine (SYNTHROID) 25 mcg tablet ??? melatonin 3 mg Tablet ALLERGIES/ADR Allergies Allergen Reactions ??? Latex Rash [...] ??? Highest education level: Not on file Social Needs ??? Financial resource strain: Not on file ??? Food insecurity - worry: Not on file ??? Food insecurity - inability: Not on file ??? Transportation needs - medical: Not on file ??? Transportation needs - non-medical: Not on file Occupational History ??? 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 Smoking status: Never Smoker ??? Smokeless tobacco: Never Used Substance and Sexual Activity ??? Alcohol use: No Frequency: Never ??? Drug use: No Comment: denies illicit drug use or abuse ??? Sexual activity: Not on file Comment: deferred Other Topics Concern ??? Not on file Social History Narrative ??? 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 [facility] Contact Permission:?? OK to leave message on machine. ?? FAMILY HISTORY Family History Problem Relation Age of Onset ??? Heart Disease Mother ??? Arthritis Mother ??? Heart Disease Father ??? Arthritis Father ??? Arthritis Sister ??? Depression Brother ?? One daughter: she has Silva Danlos syn; PHYSICAL EXAM VITAL SIGNS: Blood pressure 143/67, pulse 72, temperature 36.6 ??C (97.9 ??F), resp. rate 18, zyaacn435.5 cm (5' 9.88), weight 112.1 kg (247 lb 3.2 oz), SpO2 98 %. ECOG PS: 1 GENERAL: Saundra Dhaliwal is a well-appearing 68 y.o. female in no acute distress. HEENT: Eyes: b/l PERRL, no conjunctival pallor , no scleral icterus; Sinuses: non-tender; Oropharynx: moist , clear, hypertrophy of hard palate causing narrowing of oral cavity; No thrush. ENDOCRINE: No thyromegaly palpated. CARDIOVASCULAR: Heart with regular rate and rhythm without S3,S4 or murmurs. No cyanosis or peripheral edema. PULMONARY: Lungs are clear to auscultation without rales, rhonchi or wheezing. GASTROINTESTINAL: Abdomen soft and non-tender without palpable masses or hepatosplenomegaly. MUSCULOSKELETAL: Neck supple with full ROM. No spine or CVA tenderness. Right leg on supporting brace; SKIN: No rashes, bruises or petechiae. LYMPH: No abnormal/palpable cervical/axillary/inguinal lymphadenopathy. NEUROLOGICAL: Alert and oriented to person, place and time; No focal neurological deficits; PSYCHIATRIC: normal affect and mood LABORATORY Recent Results (from the past 72 hour(s)) Direct antiglobulin test Result Value Ref Range LILIAN Negative Results for SAUNDRA DHALIWAL ( ) as of 07/20/2018 22:28 Ref. Range 07/15/2018 12:54 WBC Latest Ref Range: 4.0 - 9.5 x10(3)/mcL 35.6 (CRIT) RBC Latest Ref Range: 4.00 - 5.21 x10(6)/mcL 4.78 Hemoglobin Latest Ref Range: 11.7 - 15.5 gm/dL 13.8 Hematocrit Latest Ref Range: 35.7 - 45.8 % 42.9 MCV Latest Ref Range: 82.6 - 94.4 fL 89.7 MCH Latest Ref Range: 27.1 - 32.0 pg 28.9 MCHC Latest Ref Range: 31.7 - 35.0 gm/dL 32.2 RDWSD Latest Ref Range: 37.0 - 46.0 fL 42.5 RDWCV Latest Ref Range: 11.5 - 14.1 % 13.0 Platelets Latest Ref Range: 145 - 357 x10(3)/mcL 135 (L) MPV Latest Ref Range: 7.6 - 12.9 fL 9.9 nRBC % Auto Latest Units: % 0.0 nRBC Abs Auto Latest Ref Range: 0.000 - 0.000 x10(3)/mcL 0.000 Neutr Abs (ANC) Latest Ref Range: 1.70 - 6.10 x10(3)/mcL 2.93 Neutrophils % Latest Units: % 8.3 Immature Gran % Latest Units: % 0.10 Lymphocytes % Latest Units: % 88.6 Monocytes % Latest Units: % 2.2 Eosinophils % Latest Units: % 0.6 Basophils % Latest Units: % 0.2 Betty Gran Abs Latest Ref Range: 0.00 - 0.04 x10(3)/mcL 0.05 (H) Lymphocytes Abs Latest Ref Range: 0.9 - 3.2 x10(3)/mcL 31.5 (H) Monocyte Abs Latest Ref Range: 0.3 - 0.9 x10(3)/mcL 0.8 Eosinophils Abs Latest Ref Range: 0.0 - 0.4 x10(3)/mcL 0.2 Basophils Abs Latest Ref Range: 0.0 - 0.1 x10(3)/mcL 0.1 Plat Estimate Unknown Decreased RBC Morphology Unknown Normal Smudge Cells Unknown Present Sodium Latest Ref Range: 135 - 145 mmol/L 142 Potassium Latest Ref Range: 3.5 - 5.0 mmol/L 4.0 Chloride Latest Ref Range: 98 - 107 mmol/L 104 CO2 Latest Ref Range: 22 - 31 mmol/L 28 Anion Gap Latest Ref Range: 5 - 15 mmol/L 10 BUN Latest Ref Range: 8 - 18 mg/dL 13 Creatinine Latest Ref Range: 0.70 - 1.20 mg/dL 0.67 (L) eGFR Latest Ref Range: >=60 mL/min/1.73 m?? 90 eGFR Latest Ref Range: >=60 mL/min/1.73 m?? 104 Glucose Lvl Latest Ref Range: 65 - 199 mg/dL 86 Calcium Latest Ref Range: 8.5 - 10.5 mg/dL 10.1 Total Protein Latest Ref Range: 6.1 - 8.0 gm/dL 7.0 Albumin Latest Ref Range: 3.2 - 5.2 gm/dL 4.3 Total Bilirubin Latest Ref Range: 0.2 - 1.3 mg/dL 0.3 Alk Phos Latest Ref Range: 40 - 104 unit/L 87 AST Latest Ref Range: 0 - 30 unit/L 22 ALT Latest Ref Range: 0 - 30 unit/L 13 LDH Latest Ref Range: 110 - 220 unit/L 226 (H) RADIOLOGY - None ASSESSMENT & PLANS: # CLL, 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 11q23 deletion, CD38+, ZAP70 + predicts poor prognosis where as 13q deletion suggest good prognosis. Clinically Ms. Dhaliwal remains asymptomatic. No palpable lymphadenopathy or HSM on exam (had CT in 07/2017 showing TIAN). I reviewed the labs with her from today: While H&H reamined normal, mild thrombocytopenia with platelet count of 135k today, improved from 109K at last visit, ALC went up from 16.7k three moths ago to 31.5k today , almost doubling with in 3 months. Her LDH also went up slightly today, to 226k. This is concerning and especially as she has several poor prognostic markers as noted above, but, still does not meet any criteria for treatment initiation at this time. I will repeat herlabs in mid August. If the ALC continues to climb up rapidly, will need further evaluation such as staging CTs, bone marrow biopsy etc to evaluate for overall disease progression. # Hypogammaglobulinemia: IgG of 612 ; no h/o frequent infections; will monitor; Will recheck Igs at her next visit. # Carcinoid tumor of stomach: No evidence of disease based on recent studies. # b/ Angiomyolipomas : being followed by urology; f/up in 2 years with US recommended# Chronic back pain and RLE pain: follows with pain management; # Nephrolithiasis (non obstructing): Evaluated by Uro and advised to drink plenty of fluids; IN SUMMARY: - Today's labs showing Rapidly increasing ALC compared to 3m ago: Rpt CBC,CMP, LDH in mid August at [facility] in early November or sooner based on August's labs. 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 she understands the plan, and knows that she can contact us at any time should any new symptoms, concerns or questions arise. Virgilio Navarro MD [facility] CC: Ingrid Espinosa APRN documented in this encounter Plan of Treatment Upcoming Encounters Date Type Specialty Care Team Description 03/06/2022 Office Visit Cardiology Lizeth Frazier MD [facility] [address] [place], [place] [address] (Wo rk) 03/18/2022 Office Visit Neurology Donovan Mayer MD [facility] NEUROLOGY DEPT. [place], [place] [address] (Wo rk) 04/24/2022 Appointment Hematology and Oncology 04/24/2022 Office Visit Hematology and Oncology Renea Navarro MD [facility] HEMATOLOGY/ONCOL CLAUDE DEPT. [place], [place] [address] (Wo rk) documented as of this encounter Visit Diagnoses Diagnosis CLL (chronic lymphocytic leukemia) Chronic lymphoid leukemia, without menti on of having achieved remission documented in this encounter Care Teams Boat Patcher Plastic Relationship Specialty Start Date End Date Ingrid Espinosa APRN PCP - General Internal Medicine 07/28/[address] [place] [address] documented as of this encounter
--- OUTSIDE RECORDS SUMMARY | 2021-12-21 00:35 | XMS_ITS | Encounter Summary ---
:1950 Author Organization [facility] [place] [address] Care Team Providers Name Role Phone Ingrid Espinosa Uriel PALACIOS Primary Care Provider Encounter Details Date Type Department Care Team Description 07/15/2018 Hospital Encounter Hematology and CLL (ch ronic lymphocytic leukemia); Oncology at [facility] [place] [address] Social History Tobacco Use Types Packs/Day Years [...] (THERAGRAN) tablet mouth daily. OXYGEN-AIR DELIVERY by [facility].(Non-Drug; 0 SYSTEMS (HORIZON NASAL Combo Route) route [...] capsuleIndications: Fibromyalgia fibromyalgia TENS UNITS MISC by [facility].(Non-Drug; 0 0 01/13/2019 Combo Route) route. Tens [...] Visit Cardiology Lizeth Frazier MD [facility] er [address] [place], [place] [address] (Wo rk) 03/18/2022 Office Visit Neurology Donovan Mayer MD [facility] NEUROLOGY DEPT. [place], [place] [address] (Wo rk) 04/24/2022 Appointment Hematology and Oncology 04/24/2022 Office Visit Hematology and Oncology Renea Navarro MD [facility] HEMATOLOGY/ONCOL OGY DEPT. [place], [place] [address] (Wo rk) Scheduled Orders Name Type Priority Associated Diagnoses Order S chedule CBC (with Diff) Lab Routine CLL (chronic 1 Occurrence s starting lymphocytic leukemia) 2018 until 07/15/2018 Comprehensive metabolic Lab Routine CLL (chronic 1 Oc currences starting panel (non-fasting) lymphocytic leukemia) 07/15/2018 until 07/15/2018 Lactate Dehydrogenase Lab Routine CLL (chronic 1 Occu rrences starting lymphocytic leukemia) 2018 until 07/15/2018 documented as of this encounter Procedures Procedure Name Priority Date/Time Associated Comments Diagnosis SCAN, PERIPHERAL BLOOD Routine 07/15/2018 12:54 R esults for this PM EST procedure are i n the results section. HEMOGRAM Routine 07/15/2018 12:54 CLL (chronic Results for this PM EST lymphocytic procedure are i n leukemia) the results Thrombocytopenia section. DIFFERENTIAL, Routine 07/15/2018 12:54 CLL (chronic Results fo r this AUTOMATED PM EST lymphocytic procedure are i n leukemia) the results Thrombocytopenia section. CBC (WITH DIFF) Routine 07/15/2018 12:54 CLL (chronic PM EST lymphocytic leukemia) Thrombocytopenia DIRECT ANTIGLOBULIN Routine 07/15/2018 12:54 CLL (chronic Resu lts for this TEST PM EST lymphocytic procedure are i n leukemia) the results Thrombocytopenia section. LACTATE DEHYDROGENASE Routine 07/15/2018 12:54 CLL (chronic Re sults for this PM EST lymphocytic procedure are i n leukemia) the results Thrombocytopenia section. COMPREHENSIVE Routine 07/15/2018 12:54 CLL (chronic Results fo r this METABOLIC PANEL PM EST lymphocytic procedure ar e in (NON-FASTING) leukemia) the results Thrombocytopenia section. documented in this encounter Results Scan, Peripheral Blood (07/15/2018 12:54 PM EST) [facility] [employer] Method Time Signature Plat Estimate Decreased [facility] RBC Morphology Normal [facility] Smudge Cells Present [facility] Specimen Anatomical Collection Method Collection Time Receive d Time (Source) Location / / Volume Laterality Blood specimen 07/15/2018 12:54 9 1:11 (specimen) PM EST PM EST Resulting Agency Comment Spec In Lab Virgilio Navarro MD HEMATOLOGY ORDERABLES Performing Organization Address City/State/[place] [address] (ABNORMAL) Differential, Automated (07/15/2018 12:54 PM EST) [facility] [employer] Method Time Signature Neutrophils % 8.3 % [facility] Neutr Abs (ANC) 2.93 1.70 - [facility] 6.10 [facility] x10(3)/[facility] LABORATORY Lymphocytes % 88.6 % [facility] Lymphocytes Abs 31.5 (H) 0.9 - 3.2 [facility] x10(3)/[facility] LABORATORY Monocytes % 2.2 % [facility] Monocyte Abs 0.8 0.3 - 0.9 [facility] x10(3)/[facility] LABORATORY Eosinophils % 0.6 % [facility] Eosinophils Abs 0.2 0.0 - 0.4 [facility] x10(3)/[facility] LABORATORY Basophils % 0.2 % [facility] Basophils Abs 0.1 0.0 - 0.1 [facility] x10(3)/[facility] LABORATORY Immature Gran % 0.10 % [facility] [...] Gran Abs 0.05 (H) 0.00 - 0.04 x10(3)/[facility] LABORATORY Specimen Anatomical Collection Method Collection Time Receive d Time (Source) Location / / Volume Laterality Blood specimen 07/15/2018 12:54 9 1:11 (specimen) PM EST PM EST Resulting Agency Comment Spec In Lab Virgilio Navarro MD HEMATOLOGY ORDERABLES Performing Organization Address City/State/[place] [address] (ABNORMAL) Hemogram (07/15/2018 12:54 PM EST) P athologist Signature WBC 35.6 4.0 - 9.5 [facility] (Critical) x10(3)/[facility] LABORATORY Comment: This result has been called to VIRGILIO NAVARRO by GERMAIN MYERS on 07 15 2018 at 1405, and has been read back. RBC 4.78 4.00 - 5.21 x10(6)/[facility] LABORATORY Hemoglobin 13.8 11.7 - 15.5 gm/dL [facility] Hematocrit 42.9 35.7 - 45.8 % [facility] MCV 89.7 82.6 - 94.4 [facility] LABORATORY MCH 28.9 27.1 - 32.0 pg [facility] MCHC 32.2 31.7 - 35.0 gm/dL [facility] Platelets 135 (L) 145 - 357 x10(3)/[facility] LABORATORY RDWSD 42.5 37.0 - 46.0 [facility] LABORATORY RDWCV 13.0 11.5 - 14.1 % [facility] MPV 9.9 7.6 - 12.9 [facility] LABORATORY nRBC % Auto 0.0 % [facility] nRBC Abs Auto 0.000 0.000 - 0.000 x10(3)/[facility] LABORATORY Specimen Anatomical Collection Method Collection Time Receive d Time (Source) Location / / Volume Laterality Blood specimen 07/15/2018 12:54 9 1:11 (specimen) PM EST PM EST Resulting Agency Comment Spec In Lab Virgilio Navarro MD HEMATOLOGY ORDERABLES Performing Organization Address City/[facility]/ZIP Code Phon e Number [address] Direct antiglobulin test (07/15/2018 12:54 PM EST) P athologist Signature LILIAN Negative [facility] Specimen Anatomical Collection Method Collection Time Receive d Time (Source) Location / / Volume Laterality Blood specimen 07/15/2018 12:54 9 1:08 (specimen) PM EST PM EST Resulting Agency Comment Spec In Lab Virgilio Navarro MD BLOOD BANK ORDERABLES Performing Organization Address City/[facility]/[place] [address] (ABNORMAL) Comprehensive metabolic panel (non-fasting) (07/15/2018 12:54 PM EST) P athologist Signature Glucose Lvl 86 65 - 199 [facility] mg/dL [facility] Comment: Diabetes: >=200 mg/dL plus symp toms BUN 13 8 - 18 mg/dL [facility] Creatinine 0.67 (L) 0.70 - 1.20 mg/dL [facility] Sodium 142 135 - 145 mmol/L [facility] Potassium 4.0 3.5 - 5.0 mmol/L [facility] Comment: Please note: ??Patients with WBC >100,00 0 may have falsely elevated Potassium levels. ??For accurate Potassium quantif ication in these patients send serum separator tube (gold top) for subsequent determinations. ??Contact the Clinical Chemistry Laboratory if there are any qu estions. Chloride 104 98 - 107 mmol/L [facility] CO2 28 22 - 31 mmol/L [facility] Anion Gap 10 5 - 15 mmol/L [facility] Calcium 10.1 8.5 - 10.5 mg/dL [facility] Total Protein 7.0 6.1 - 8.0 gm/dL [facility] Albumin 4.3 3.2 - 5.2 gm/dL [facility] AST 22 0 - 30 unit/L [facility] ALT 13 0 - 30 unit/L [facility] Alk Phos 87 40 - 104 unit/L [facility] Total Bilirubin 0.3 0.2 - 1.3 mg/dL [facility] Estimated GFR 90 >=60 mL/min/1.73 m?? [facility] Comment: The eGFR was calculated using the CKD-EP I equation. As with all creatinine based estimates of kidney function, eGFR values calculated with the CKD-EPI equation are not accurate in patients wi th acute kidney failure, extremes of body mass or the acutely ill. [email or web address]/[facility] eGFR 104 >=60 mL/min/1.73 m?? [facility] Comment: The eGFR was calculated using the CKD-EP I equation. As with all creatinine based estimates of kidney function, eGFR values calculated with the CKD-EPI equation are not accurate in patients wi th acute kidney failure, extremes of body mass or the acutely ill. http://[employer]/[facility]nk[facility] Specimen Anatomical Collection Method Collection Time Receive d Time (Source) Location / / Volume Laterality Blood specimen 07/15/2018 12:54 9 1:11 (specimen) PM EST PM EST Resulting Agency Comment Spec In Lab Virgilio Navarro MD CHEMISTRY ORDERABLES Performing Organization Address City/State/[place] [address] (ABNORMAL) Lactate Dehydrogenase (07/15/2018 12:54 PM EST) P athologist Signature LDH 226 (H) 110 - 220 [facility] unit/L [facility] Specimen Anatomical Collection Method Collection Time Receive d Time (Source) Location / / Volume Laterality Blood specimen 07/15/2018 12:54 9 1:11 (specimen) PM EST PM EST Resulting Agency Comment Spec In Lab Virgilio Navarro MD CHEMISTRY ORDERABLES Performing Organization Address City/State/[place] [address] documented in this encounter Visit Diagnoses Diagnosis CLL (chronic lymphocytic leukemia) Chronic lymphoid leukemia, without menti on of having achieved remission Thrombocytopenia Thrombocytopenia, unspecified documented in this encounter Care Teams Insurance Sales Representative Relationship Specialty Start Date End Date Ingrid Espinosa APRN PCP - General Internal Medicine 07/28/[address] [place] [address] documented as of this encounter
--- OUTSIDE RECORDS SUMMARY | 2021-12-21 00:35 | XMS_ITS | Encounter Summary ---
:1950 Author Organization [facility] [place] [address] Care Team Providers Name Role Phone FranciscaGuillerminaIngridcresencio Trevino APRN Primary Care Provider Reason for Referral Diagnostic Test (Routine) - Specialty Diagnoses / Procedures Referred By Contact Refer red To Contact Radiology Diagnoses Diarrhea, unspecified type Suri Newton, [facility] Rad Nuclear Med Procedures NM Octreoscan RadioPharm Admin [place] [address] [place] [address] Referral ID Status Reason Start Date Expiration Visits Visits Date Requested Authorized [id number] Specialty 05/29/2018 05/29/2019 1 1 Service Requested Reason for Visit Diagnostic Test (Routine) - Closed Specialty Diagnoses / Procedures Referred By Contact Refer red To Contact Radiology Diagnoses Diarrhea, unspecified type Suri Newton, [facility] Rad Nuclear Med Procedures NM Octreoscan [place] [address] [place] [address] Referral ID Status Reason Start Date Expiration Date Visits V isits Requested Authorized [id number] Closed Specialty 05/21/2018 05/21/2019 3 3 Service Requested Encounter Details Date Type Department Care Team Description 06/15/2018 Hospital Encounter Nuclear Medicine at Cleo Newton, Lizeth Orellana, WORKDAY DIRECTOR unspecified type [facility] [address] [place], [place] GASTROENTEROLOGY [address] [place], [place] [phone] [id number] Social History Tobacco Use Types Packs/Day Years [...] ketoconazole (NIZORAL) Apply topically. 30 g 2 03/02/ 012 2 % creamIndications: Mixing with Desonide, [...] (THERAGRAN) tablet mouth daily. OXYGEN-AIR DELIVERY by [facility].(Non-Drug; 0 SYSTEMS (HORIZON NASAL Combo Route) route [...] capsuleIndications: Fibromyalgia fibromyalgia TENS UNITS MISC by [facility].(Non-Drug; 0 0 01/13/2019 Combo Route) route. Tens machine Daily for back and leg pantoprazole (PROTONIX) Take 40 mg by mouth 0 01/13/2019 40 mg tablet daily. simvastatin (ZOCOR) 20 Take 20 mg by mouth 0 01/13/2019 mg tablet nightly. documented as of this encounter Plan of Treatment Upcoming Encounters Date Type Specialty Care Team Description 03/06/2022 Office Visit Cardiology Lizeth Frazier MD [facility] [place], [place] [address] (Wo rk) 03/18/2022 Office Visit Neurology Donovan Mayer MD [facility] NEUROLOGY DEPT. [place], [place] [address] (Wo rk) 04/24/2022 Appointment Hematology and Oncology 04/24/2022 Office Visit Hematology and Oncology Renea Navarro MD [facility] HEMATOLOGY/ONCOL CLAUDE DEPT. [place], [place] [address] (Wo rk) documented as of this encounter Procedures Procedure Name Priority Date/Time Associated Diagnosis Comme nts NM OCTREOSCAN Routine 06/15/2018 10:30 Diarrhea, Results fo r this RADIOPHARM ADMIN AM EST unspecified type procedu re are in the results section. documented in this encounter Results NM Octreoscan RadioPharm Admin (06/15/2018 10:30 AM EST) Specimen (Source) Anatomical Location Collection Method / Collectio n Time Received Time / Laterality Volume Narrative RAD - 06/15/2018 10:30 AM EST This exam is auto-finalizing. It is for billing only. See paired order for result. Suri Newton APRN IMG NM ORDERABLES Performing Organization Address City/State/ZIP Code Phon e Number [place], [place] documented in this encounter Visit Diagnoses Diagnosis Diarrhea, unspecified type documented in this encounter Administered Medications Inactive Administered Medications - up to 3 most recent administrations Medication Order MAR Action Action Date Dose Rate Site indium (IN-111) octreoscan Given 06/15/2018 10:25 AM EST 6.2 mCi injection 6.2 mCi 6.2 mCi, Intravenous, ONCE PRN, 1 dose, Starting on Fri06/15/18 at 1025, Until Fri06/15/18 at 1025, Per Protocol, Routine documented in this encounter Care Teams Collision Technician Relationship Specialty Start Date End Date Ingrid Espinosa APRN PCP - General Internal Medicine 07/28/[address] [place] [address] [place] [address] documented as of this encounter
--- OUTSIDE RECORDS SUMMARY | 2021-12-21 00:35 | XMS_ITS | Encounter Summary ---
:1950 Author Organization [facility] [place] [address] Care Team Providers Name Role Phone Ingrid Espinosa SUZANNE Primary Care Provider Encounter Details Date Type Department Care Team Description 03/24/2019 Office Visit Hematology and Ramon CLL (chronic Oncology at [facility] MD Virgilio lymphocytic leukemia) [facility] [address] [place] HEMATOLOGY/ONCOLOG [address] Y DEPT. [phone] [place], [place] [address] Social History Tobacco Use Types [...] Sign Reading Time Taken Comments Blood Pressure 151/72 03/24/2019 2:27 PM EST Pulse 92 03/24/2019 2:27 PM EST Temperature 36.7 ??C (98.1 ??F) 03/24/2019 2:27 PM EST Respiratory Rate 17 03/24/2019 2:27 PM EST Oxygen Saturation 98% 03/24/2019 2:27 PM EST Inhaled Oxygen Concentration - - Weight 111 kg (244 lb 12.8 oz) 03/24/2019 2:30 PM EST s hoes on Height 177.5 cm (5' 9.88) 03/24/2019 2:30 PM EST shoes on Body Mass Index 35.24 03/24/2019 2:30 PM EST documented in this encounter Progress Notes Virgilio Navarro MD - 03/24/2019 2:30 PM EST Images from the original note [...] 159. 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 Follows with Isha Lutz [facility] surgical associates, at [facility] and with Suri Newton APRN at [facility] ?? EGD: 06/30/18: Notable for medium-sized hiatal hernia, multiple gastric polyps. Biopsied. Path: fundic gland polyps. ?? Colonoscopy : 06/30/18: Diverticulosis in the sigmoid colon and in the descending colon ; Internalhemorrhoids ?? NM octreoscan: 06/16/18: No evidence of disease. ?? Saw Dr. Rodriguez at [facility] on 01/13/19 who felt that she does not need routine surveillance, either for the carcinoid or for the fundic gland polyps. 3. HTN Hypothyroidism 5. H/o DVT Provoked LLE DVT post- after 1 month bedrest and , 1986. Treated for a number of years per pt. R popliteal and posterior tibial DVT 2005. Repeat U/S OSH 2006 normal. [facility] anticoagulation since 2005. Stopped in [address] [facility] - Testing was negative for [...] bilateral angiomyolipomas,being followed by urology at [facility], presenting for f/up for CLL. In office today, she reports doing well with no new issues. She saw Dr. Rodriguez for carcinoid who felt that she does not need any further surveillance and she is happy to hear that news. - Energy: stable; Can walk a mile [...] Neuro - No Other ROS: All negative MEDICATIONS ??? fluticasone propionate (FLONASE) 50 mcg/actuation [place], Suspension ??? loratadine (CLARITIN) 10 mg Tablet [...] Not on file Occupational History ??? 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 Financial resource strain: [...] ??? Not on file Lives alone in 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 HIP[employer] Contact Permission:?? OK to leave message on machine. ?? FAMILY HISTORY Family History Problem Relation Age of Onset ??? Heart Disease Mother ??? Arthritis Mother ??? Heart Disease Father ??? Arthritis Father ??? Arthritis Sister ??? Depression Brother ?? One daughter: she has Silva Danlos syn; PHYSICAL EXAM VITAL SIGNS: Blood pressure 151/72, pulse 92, temperature 36.7 ??C (98.1 ??F), temperature source Temporal, resp. rate 17, height 177.5 cm (5' 9.88), weight 111 kg (244 lb 12.8 oz), SpO2 98 %. ECOG PS: 1 [...] tenderness. Right leg on supporting brace; SKIN: a sub centimeter palpable LN felt in Lt axilla; No rashes, bruises or petechiae. LYMPH:mal No other palpable cervical/axillary/inguinal lymphadenopathy. NEUROLOGICAL: Alert and oriented to person, place and time; No focal neurological deficits; PSYCHIATRIC: normal affect and mood LABORATORY Recent Results (from the past 72 hour(s)) Lactate Dehydrogenase Result Value Ref Range LDH 234 (H) 110 - 220 unit/L Comprehensive metabolic panel (non-fasting) Result Value Ref Range Glucose Lvl 104 65 - 199 mg/dL BUN 17 8 - 18 mg/dL Creatinine 1.07 0.70 - 1.20 mg/dL Sodium 146 (H) 135 - 145 mmol/L Potassium 4.8 3.5 - 5.0 mmol/L Chloride 106 98 - 107 mmol/L CO2 27 22 - 31 mmol/L Anion Gap 13 5 - 15 mmol/L Calcium 10.2 8.5 - 10.5 mg/dL Total Protein 6.9 6.1 - 8.0 gm/dL Albumin 4.5 3.2 - 5.2 gm/dL AST 24 0 - 30 unit/L ALT 17 0 - 30 unit/L Alk Phos 62 35 - 105 unit/L Total Bilirubin 0.5 0.2 - 1.3 mg/dL eGFR 53 (L) >=60 mL/min/1.73 m?? eGFR 61 >=60 mL/min/1.73 m?? Hemogram Result Value Ref Range WBC 40.2 (CRIT) 4.0 - 9.5 x10(3)/mcL RBC 5.08 4.00 - 5.21 x10(6)/mcL Hemoglobin 14.9 11.7 - 15.5 gm/dL Hematocrit 46.7 (H) 35.7 - 45.8 % MCV 91.9 82.6 - 94.4 fL MCH 29.3 27.1 - 32.0 pg MCHC 31.9 31.7 - 35.0 gm/dL Platelets 147 145 - 357 x10(3)/mcL RDWSD 45.9 37.0 - 46.0 fL RDWCV 13.6 11.5 - 14.1 % MPV 11.6 7.6 - 12.9 fL nRBC % Auto 0.0 % nRBC Abs Auto 0.000 0.000 - 0.000 x10(3)/mcL Differential, Automated Result Value Ref Range Neutrophils % 11.1 % Neutr Abs (ANC) 4.43 1.70 - 6.10 x10(3)/mcL Lymphocytes % 85.0 % Lymphocytes Abs 34.2 (H) 0.9 - 3.2 x10(3)/mcL Monocytes % 2.8 % Monocyte Abs 1.1 (H) 0.3 - 0.9 x10(3)/mcL Eosinophils % 0.5 % Eosinophils Abs 0.2 0.0 - 0.4 x10(3)/mcL Basophils % 0.5 % Basophils Abs 0.2 (H) 0.0 - [...] 11q23 deletion, 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 Clinically Ms. Blanton remains asymptomatic. No new palpable lymphadenopathy or HSM on exam (had CT in 07/2017 showing mild splenomegaly and TIAN). I reviewed the labs with her from today: H&H and platelets are normal; ALC 34.2k today with doubling time of > 12m. LDH slightly increased to 234k. I reviewed the indications to initiate treatment for CLL with Ms. Blanton and she does not have any indication now. So, we will continue watch and wait approach. I will see her in 3-4 months with rpt CBC,CMP, LDH, or sooner as needed. 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 no h/o frequent infections; will monitor; Will recheck Igs at her next visit, prior to winter. # b/ Angiomyolipomas : being followed by urology; Recommendations: - No indications to initiate treatment for CLL at this time - Up to date on all vaccines; avoid live viral vaccines; - RTC in 3-4m with labs or sooner as needed. I reviewed my impression and recommendations with Saundra Blanton and answered all the questions to her satisfaction. she understands the plan, and knows that she can contact us at any time should any new symptoms, concerns or questions arise. Virgilio Navarro MD [facility] CC: Ingrid Espinosa APRN documented in this encounter Plan of Treatment Upcoming Encounters Date Type Specialty Care Team Description 03/06/2022 Office Visit Cardiology Lizeth Frazier MD [facility] [place] [address] (Wo ynes) 03/18/2022 Office Visit Neurology Donovan Mayer MD [facility] NEUROLOGY DEPT. [place] [address] (Wo rk) 04/24/2022 Appointment Hematology and Oncology 04/24/2022 Office Visit Hematology and Oncology Renea Navarro MD [facility] HEMATOLOGY/ONCOL CLAUDE DEPT. [place], [place] [address] (Wo rk) documented as of this encounter Results (ABNORMAL) Immunoglobulins, Quantitative (06/23/2019 1:30 PM EST) athologist Signature IgG 740 700 - 1,600 [facility] mg/dL [facility] Comment: Pediatric Reference Intervals obtained f rom the Caliper Reference Interval project. http://www.[employer].ca/caliperp roject/index.html IgA 142 70 - 400 mg/dL [facility] IgM 14 (L) 40 - 230 mg/dL [facility] Specimen Anatomical Collection Method Collection Time Receive d Time (Source) Location / / Volume Laterality Blood specimen 06/23/2019 1:30 PM 020 1:35 (specimen) EST PM EST Resulting Agency Comment Spec In Lab Virgilio Navarro MD CHEMISTRY ORDERABLES Performing Organization Address City/State/Z[place] [address] documented in this encounter Visit Diagnoses Diagnosis CLL (chronic lymphocytic leukemia) Chronic lymphoid leukemia, without menti on of having achieved remission documented in this encounter Care Teams Finance Controller Relationship Specialty Start Date End Date Ingrid Espinosa APRN PCP - General Internal Medicine 07/28/[address] [place] [address] documented as of this encounter
--- OUTSIDE RECORDS SUMMARY | 2021-12-21 00:35 | XMS_ITS | Encounter Summary ---
:1950 Author Organization [facility] [address] Care Team Providers Name Role Phone Ingrid Espinosa SUZANNE Primary Care Provider Reason for Visit Reason Comments Medication Refill Encounter Details Date Type Department Care Team Description 10/28/2018 Refill Neurology at [facility] Donovan Mayer MD [facility] [place] [address] NEUROLOGY DEPT. [phone] [place], [place] [address] (Wo rk) Social History Tobacco [...] Frazier MD [facility] Dr [place], [place] [address] (Wo rk) 03/18/2022 Office Visit Neurology Donovan Mayer MD [facility] ER NEUROLOGY DEPT. [place], [place] [address] (Wo rk) 04/24/2022 Appointment Hematology and Oncology 04/24/2022 Office Visit Hematology and Oncology Renea Navarro MD [facility] er HEMATOLOGY/ONCOL CLAUDE DEPT. [place], [place] [address] (Wo rk) documented as of this encounter Visit Diagnoses Not on filedocumented in this encounter Care Teams Lawn Service Manager Relationship Specialty Start Date End Date Ingrid Espinosa APRN PCP - General Internal Medicine 07/28/17 [address] [place] [address] documented as of this encounter
--- OUTSIDE RECORDS SUMMARY | 2021-12-21 00:35 | XMS_ITS | Encounter Summary ---
:1950 Author Organization [facility] [place] [address] Care Team Providers Name Role Phone Ingrid Espinosa ASSISTANT INVENTORY MANAGER Primary Care Provider Encounter Details Date Type Department Care Team Description 06/14/2019 Ancillary Procedure [facility] INVENTORY MANAGER [facility] [address] [place] [phone] (Wo rk) Social History Tobacco Use Types [...] Visit Cardiology Lizeth Frazier MD [facility] [address] [place], [place] [address] (Wo rk) 03/18/2022 Office Visit Neurology Donovan Mayer MD [facility] ER NEUROLOGY DEPT. [place], [place] [address] (Wo rk) 04/24/2022 Appointment Hematology and Oncology 04/24/2022 Office Visit Hematology and Oncology Renea Navarro MD [facility] HEMATOLOGY/ONCOL OGY DEPT. [place], [place] [address] (Wo rk) documented as of this encounter Procedures Procedure Name Priority Date/Time Associated Diagnosis Comme nts FILM LIBRARY Routine 06/14/2019 12:00 AM Results for this STORAGE ONLY MAMMO EST procedure are in the results section. documented in this encounter Results Film Library- Storage Only Mammo (06/14/2019 12:00 AM EST) Specimen (Source) Anatomical Location Collection Method / Collectio n Time Received Time / Laterality Volume Narrative [facility] - 07/14/2020 4:37 PM EST This exam is auto-finalizing. It's purpo se is for storage only. Ingrid Espinosa APRN [employer] FILM LIBRARY ORDERABLES Performing Organization Address City/State/ZIP Code Phon e Number [place], [place] documented in this encounter Visit Diagnoses Not on filedocumented in this encounter Care Teams Fiber Design Engineer Relationship Specialty Start Date End Date Ingrid Espinosa APRN PCP - General Internal Medicine 07/28/[address] [place] [address] documented as of this encounter
--- OUTSIDE RECORDS SUMMARY | 2021-12-21 00:35 | XMS_ITS | Encounter Summary ---
:1950 Author Organization [place] [place] [address] Care Team Providers Name Role Phone Guillermina Espinosayce Uriel PALACIOS Primary Care Provider Reason for Visit Reason Comments Follow-up Encounter Details Date Type Department Care Team Description 06/23/2019 Office Visit Hematology and Ramon, CLL (chronic Oncology at [facility] MD Virgilio lymphocytic leukemia) [facility] [address] [place], [place] HEMATOLOGY/ONCOLOG [address] Y DEPT. [phone] [place], [place] [address] Social History Tobacco Use Types [...] Sign Reading Time Taken Comments Blood Pressure 170/72 06/23/2019 2:28 PM EST Pulse 78 06/23/2019 2:28 PM EST Temperature 36.9 ??C (98.4 ??F) 06/23/2019 2:28 PM EST Respiratory Rate 18 06/23/2019 2:28 PM EST Oxygen Saturation 96% 06/23/2019 2:28 PM EST Inhaled Oxygen Concentration - - Weight 108.4 kg (239 lb) 06/23/2019 2:28 PM EST Height 175.3 cm (5' 9) 06/23/2019 2:28 PM EST Body Mass Index 35.29 06/23/2019 2:28 PM EST documented in this encounter Progress Notes Virgilio Navarro MD - 06/23/2019 2:30 PM EST Images from the original [...] Plt count: 159. 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 Follows with Isha Lutz, [facility] surgical associates, at [facility] and with Suri Newton APRN at [facility] ?? EGD: 06/30/18: Notable for medium-sized hiatal hernia, multiple gastric polyps. Biopsied. Path: fundic gland polyps. ?? Colonoscopy : 06/30/18: Diverticulosis in the sigmoid colon and in the descending colon ; Internalhemorrhoids ?? NM octreoscan: 06/16/18: No evidence of disease. ?? Saw Dr. Rodriguez at [facility] on 01/13/19 who felt that she does not need routine surveillance, either for the carcinoid or for the fundic gland polyps. 3. HTN Hypothyroidism 5. H/o DVT Provoked LLE DVT post- after 1 month bedrest and , 1986. Treated for a number of years per pt. R popliteal and posterior tibial DVT 2005. Repeat U/S OSH 2006 normal. [facility]PC anticoagulation since 2005. Stopped in 2011 Seen at [facility] - Testing was negative for an underlying inherited or acquired disorder of coagulation ?? 6. Renal angiomyolipomas, follows with Urology at [facility], Dr. Du 7. Hyperlipidemia 8. Dysplastic nevus resected from left thigh in 02/2018. Follows with Dermatology at [facility] 9. Colonoscopy 06/30/18 - Impression:??- The entire [...] stomach, bilateral angiomyolipomas,being followed by urology at [facility], presenting for f/up for CLL. In office today, she is accompanied by her friend who also has CLL. I last saw her 4 months ago. Since last seen, she reports doing well with no new issues. 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 She had one episode of nose bleed before the last visit. Has intermitent vertigo. Saw her PCP and that has improved . She can walk up to 2 miles easily. No B symptoms; no infections since last seen; - Her stomach is sensitive today and she takes colestipol and on special diet. No diarrhea for few weeks now - No B symptoms; - No lumps [...] Tablet ??? fluticasone propionate (FLONASE) 50 mcg/actuation [place], Suspension ??? loratadine (CLARITIN) 10 mg Tablet [...] Not on file Occupational History ??? 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 Financial resource strain: [...] file Gets together: Not on file Attends gnosticist service: Not on file Active member of [...] ??? 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 [place] [...] syn; PHYSICAL EXAM VITAL SIGNS: Blood pressure 170/72, pulse 78, temperature 36.9 ??C (98.4 ??F), temperature source Oral, resp. rate 18, height 175.3 cm (5' 9), weight 108.4 kg (239 lb), SpO2 96 %. ECOG PS: 1 GENERAL: Saundra Blanton [...] Recent Results (from the past 72 hour(s)) Immunoglobulins, Quantitative Result Value Ref Range IgG 740 700 - 1,600 mg/dL IgA 142 70 - 400 mg/dL IgM 14 (L) 40 - 230 mg/dL Comprehensive metabolic panel (non-fasting) Result Value Ref Range Glucose Lvl 105 65 - 199 mg/dL BUN 15 8 - 18 mg/dL Creatinine 0.76 0.70 - 1.20 mg/dL Sodium 142 135 - 145 mmol/L Potassium 4.1 3.5 - 5.0 mmol/L Chloride 104 98 - 107 mmol/L CO2 25 22 - 31 mmol/L Anion Gap 13 5 - 15 mmol/L Calcium 10.1 8.5 - 10.5 mg/dL Total Protein 7.2 6.1 - 8.0 gm/dL Albumin 4.6 3.2 - 5.2 gm/dL AST 27 0 - 30 unit/L ALT 18 0 - 30 unit/L Alk Phos 70 35 - 105 unit/L Total Bilirubin 0.4 0.2 - 1.3 mg/dL eGFR 79 >=60 mL/min/1.73 m?? eGFR 92 >=60 mL/min/1.73 m?? Hemogram Result Value Ref Range WBC 39.5 (CRIT) 4.0 - 9.5 x10(3)/mcL RBC 4.94 4.00 - 5.21 x10(6)/mcL Hemoglobin 14.6 11.7 - 15.5 gm/dL Hematocrit 45.5 35.7 - 45.8 % MCV 92.1 82.6 - 94.4 fL MCH 29.6 27.1 - 32.0 pg MCHC 32.1 31.7 - 35.0 gm/dL Platelets 135 (L) 145 - 357 x10(3)/mcL RDWSD 45.6 37.0 - 46.0 fL RDWCV 13.4 11.5 - 14.1 % MPV 10.7 7.6 - 12.9 fL nRBC % Auto 0.1 % nRBC Abs Auto 0.020 (H) 0.000 - 0.000 x10(3)/mcL Differential, Automated Result Value Ref Range Neutrophils % 9.4 % Neutr Abs (ANC) 3.72 1.70 - 6.10 x10(3)/mcL Lymphocytes % 87.8 % Lymphocytes Abs 34.6 (H) 0.9 - 3.2 x10(3)/mcL Monocytes % 1.9 % Monocyte Abs 0.8 0.3 - 0.9 x10(3)/mcL Eosinophils % 0.4 % Eosinophils Abs 0.2 0.0 - 0.4 x10(3)/mcL Basophils % 0.4 [...] today: H&H and platelets are normal; ALC 34.6k today with doubling time of > 12m. LDH remain slightly high ~ 230 for the past year: will monitor. . I reviewed the indications to initiate treatment for CLL with Ms. Blanton and she does not have any indication now. So, we will continue watch and wait approach. I will see her in 3-4 months with rpt CBC,CMP, LDH, or sooner as needed. # Hypogammaglobulinemia: IgG normal today # Hypertension: under poor control. Advised her to monitor home BPs and if consistently > 130, tocall her PCP. # b/ Angiomyolipomas : being followed by urology; I reviewed my impression and recommendations with Saundra Blanton and answered all the questions to her satisfaction. she understands the plan, and knows that she can contact us at any time should any new symptoms, concerns or questions arise. Virgilio Navarro MD [facility] CC: Ingrid Espinosa APRN documented in this encounter Plan of Treatment Upcoming Encounters Date Type Specialty Care Team Description 03/06/2022 Office Visit Cardiology Lizeth Frazier MD [facility] er [place] [address] (Amado quick) 03/18/2022 Office Visit Neurology Donovan Mayer MD [facility] NEUROLOGY DEPT. [place] [address] (Wo rk) 04/24/2022 Appointment Hematology and Oncology 04/24/2022 Office Visit Hematology and Oncology Renea Navarro MD [facility] HEMATOLOGY/ONCOL CLAUDE DEPT. [place], [place] [address] (Wo rk) documented as of this encounter Visit Diagnoses Diagnosis CLL (chronic lymphocytic leukemia) Chronic lymphoid leukemia, without menti on of having achieved remission documented in this encounter Care Teams Smog Technician Relationship Specialty Start Date End Date Ingrid Espinosa APRN PCP - General Internal Medicine 07/28/[address] [place] [address] documented as of this encounter
--- OUTSIDE RECORDS SUMMARY | 2021-12-21 00:35 | XMS_ITS | Encounter Summary ---
:1950 Author Organization [facility] [place] [address] Care Team Providers Name Role Phone Ingrid Espinosa Uriel PALACIOS Primary Care Provider Encounter Details Date Type Department Care Team Description 06/23/2019 Hospital Encounter Hematology and CLL ([facility] Oncology at [facility] lymphocytic leukemia) [place] [phone] Social History Tobacco Use Types Packs/Day [...] 0 (FLONASE) 50 route daily as mcg/actuation [place], needed. Suspension Bifidobacterium infantis Take by mouth. [...] mg by mouth. 0 12/13/2020 mg Tablet loratadine (CLARITIN) 10 Take 10 mg by mouth 0 09/29/2019 mg Tablet daily. ranitidine (ZANTAC) 150 Take 150 mg by [...] Visit Cardiology Lizeth Frazier MD [facility] er [address] [place], [place] [address] (Wo rk) 03/18/2022 Office Visit Neurology Donovan Mayer MD [facility] NEUROLOGY DEPT. [place], [place] [address] (Wo rk) 04/24/2022 Appointment Hematology and Oncology 04/24/2022 Office Visit Hematology and Oncology Renea Navarro MD [facility] HEMATOLOGY/ONCOL OGY DEPT. [place], [place] [address] (Wo rk) documented as of this encounter Procedures Procedure Name Priority Date/Time Associated Comments Diagnosis HC IGG, SERUM Routine 06/23/2019 1:30 PM CLL (chronic Results for this EST lymphocytic procedure are i n leukemia) the results section. SCAN, PERIPHERAL BLOOD Routine 06/23/2019 1:30 PM Results for this EST procedure are i n the results section. HEMOGRAM Routine 06/23/2019 1:30 PM CLL (chronic Results f or this EST lymphocytic procedure are i n leukemia) the results section. DIFFERENTIAL, Routine 06/23/2019 1:30 PM CLL (chronic Results for this AUTOMATED EST lymphocytic procedure are i n leukemia) the results section. HC CBC,PLT & AUTO DIFF Routine 06/23/2019 1:30 PM CLL (chronic EST lymphocytic leukemia) COMPREHENSIVE Routine 06/23/2019 1:30 PM CLL (chronic Results for this METABOLIC PANEL EST lymphocytic procedure ar e in (NON-FASTING) leukemia) the results section. documented in this encounter Results Scan, Peripheral Blood (06/23/2019 1:30 PM EST) [facility] gist Method Time Signature Plat Estimate Decreased [facility] RBC Morphology Normal [facility] Smudge Cells Present [facility] Specimen Anatomical Collection Method Collection Time Receive d Time (Source) Location / / Volume Laterality Blood specimen 06/23/2019 1:30 PM 020 1:35 (specimen) EST PM EST Resulting Agency Comment Spec In Lab Virgilio Navarro MD HEMATOLOGY ORDERABLES Performing Organization Address City/State/ZIP [place] [address] (ABNORMAL) Differential, Automated (06/23/2019 1:30 PM EST) [facility] Method Time Signature Neutrophils % 9.4 % [facility] Neutr Abs (ANC) 3.72 1.[address] - [facility] 6.10 [facility] x10(3)/[facility] LABORATORY Lymphocytes % 87.8 % [facility] Lymphocytes Abs 34.6 (H) 0.9 - 3.[address] [facility] x10(3)/[facility] LABORATORY Monocytes % 1.9 % [facility] Monocyte Abs 0.8 0.3 - 0.[address] [facility] x10(3)/[facility] LABORATORY Eosinophils % 0.4 % [facility] Eosinophils Abs 0.2 0.0 - 0.[address] [facility] x10(3)/[facility] LABORATORY Basophils % 0.4 % [facility] Basophils Abs 0.2 (H) 0.0 - 0.[address] [facility] x10(3)/[facility] LABORATORY Immature Gran % 0.10 % [facility] Comment: Immature granulocytes(IG's)percentage an d absolute count will include metamyelocytes, myelocytes, and promyelo cytes. Blood smears from CBCs yielding IG's will be scanned manually for concor dance. If this scan disagrees with the automated IG or if promyelocytes are not ed, a manual differential will be performed. Betty Gran Abs 0.05 (H) 0.00 - 0.04 x10(3)/[facility] LABORATORY Specimen Anatomical Collection Method Collection Time Receive d Time (Source) Location / / Volume Laterality Blood specimen 06/23/2019 1:30 PM 020 1:35 (specimen) EST PM EST Resulting Agency Comment Spec In Lab Virgilio Navarro MD HEMATOLOGY ORDERABLES Performing Organization Address City/State/ZIP [place] [address] [facility] [address] (ABNORMAL) Hemogram (06/23/2019 1:30 PM EST) Patholo gist Method Time Signature WBC 39.5 4.0 - 9.[address] [facility] (Critical) x10(3)/[facility] LABORATORY RBC 4.94 4.[address] - [facility] 5.21 [facility] x10(6)/[facility] LABORATORY Hemoglobin 14.6 11.7 - [facility] gm/dL [facility] Hematocrit 45.5 35.[address] - [facility] 45.8 % [facility] MCV 92.1 82.[address] - [facility] 94.4 [facility] LABORATORY MCH 29.6 27.1 - [facility] 32.0 pg [facility] MCHC 32.1 31.7 - [facility] 35.0 gm/dL [facility] Platelets 135 (L) 145 - [address] [facility] x10(3)/[facility] LABORATORY RDWSD 45.6 37.[address] [facility] 46.0 [facility] LABORATORY RDWCV 13.4 11.[address] - [facility] 14.1 % [facility] MPV 10.7 7.6 - 12.9 [facility] LABORATORY nRBC % Auto 0.1 % [facility] nRBC Abs Auto 0.020 (H) 0.000 - [facility] 0.000 [facility] x10(3)/[facility] LABORATORY Specimen Anatomical Collection Method Collection Time Receive d Time (Source) Location / / Volume Laterality Blood specimen 06/23/2019 1:30 PM 020 1:35 (specimen) EST PM EST Resulting Agency Comment Spec In Lab Virgilio Navarro MD HEMATOLOGY ORDERABLES Performing Organization Address City/State/ZIP [place] [address] Comprehensive metabolic panel (non-fasting) (06/23/2019 1:30 PM EST) P athologist Signature Glucose Lvl 105 65 - [address] [facility] mg/dL [facility] Comment: Diabetes: >=200 mg/dL plus symp toms BUN 15 8 - 18 mg/dL [facility] Creatinine 0.76 0.70 - 1.20 mg/dL [facility] Sodium 142 135 - 145 mmol/L [facility] Potassium 4.1 3.5 - 5.0 mmol/L [facility] Comment: Please note: ??Patients with WBC >100,00 0 may have falsely elevated Potassium levels. ??For accurate Potassium quantif ication in these patients send serum separator tube (gold top) for subsequent determinations. ??Contact the Clinical Chemistry Laboratory if there are any qu estions. Chloride 104 98 - 107 mmol/L [facility] CO2 25 22 - 31 mmol/L [facility] Anion Gap 13 5 - 15 mmol/L [facility] Calcium 10.1 8.5 - 10.5 mg/dL [facility] Total Protein 7.2 6.1 - 8.0 gm/dL [facility] Albumin 4.6 3.2 - 5.2 gm/dL [facility] AST 27 0 - 30 unit/L [facility] ALT 18 0 - 30 unit/L [facility] Alk Phos 70 35 - 105 unit/L [facility] Total Bilirubin 0.4 0.2 - 1.3 mg/dL [facility] Estimated GFR 79 >=60 mL/min/1.73 m?? [facility] Comment: The eGFR was calculated using the CKD-EP I equation. As with all creatinine based estimates of kidney function, eGFR values calculated with the CKD-EPI equation are not accurate in patients wi th acute kidney failure, extremes of body mass or the acutely ill. [email or web address]nkf eGFR 92 >=60 mL/min/1.73 m?? [facility] Comment: The eGFR was calculated using the CKD-EP I equation. As with all creatinine based estimates of kidney function, eGFR values calculated with the CKD-EPI equation are not accurate in patients wi th acute kidney failure, extremes of body mass or the acutely ill. [email or web address] Specimen Anatomical Collection Method Collection Time Receive d Time (Source) Location / / Volume Laterality Blood specimen 06/23/2019 1:30 PM 020 1:35 (specimen) EST PM EST Resulting Agency Comment Spec In Lab Virgilio Navarro MD CHEMISTRY ORDERABLES Performing Organization Address City/[facility]/[place] [address] (ABNORMAL) Immunoglobulins, Quantitative (06/23/2019 1:30 PM EST) P athologist Signature IgG 740 700 - 1,[address] [facility] mg/dL [facility] Comment: Pediatric Reference Intervals obtained f rom the Caliper Reference Interval project. http://[email or web address]/caliperp roject/index.html IgA 142 70 - 400 mg/dL [facility] IgM 14 (L) 40 - 230 mg/dL [facility] Specimen Anatomical Collection Method Collection Time Receive d Time (Source) Location / / Volume Laterality Blood specimen 06/23/2019 1:30 PM 020 1:35 (specimen) EST PM EST Resulting Agency Comment Spec In Lab Virgilio Navarro MD CHEMISTRY ORDERABLES Performing Organization Address City/State/[place] [address] documented in this encounter Visit Diagnoses Diagnosis CLL (chronic lymphocytic leukemia) Chronic lymphoid leukemia, without menti on of having achieved remission documented in this encounter Care Teams Barrel Filler Relationship Specialty Start Date End Date Ingrid Espinosa APRN PCP - General Internal Medicine 07/28/[address] [place] [address] documented as of this encounter
--- OUTSIDE RECORDS SUMMARY | 2021-12-21 00:35 | XMS_ITS | Encounter Summary ---
:1950 Author Organization [facility] [place] [address] Care Team Providers Name Role Phone Ingrid Espinosa APRN Primary Care Provider Reason for Visit Reason Comments Skin Check Encounter Details Date Type Department Care Team Description 09/09/2018 Office Visit Dermatology at Aman Mcrae MD [facility] [address] [address] History of dysplastic nevus; Road Haydee Rouse PA [facility] [address] [place] [address] Multiple benign nevi; [address] Schreiber angiomas; [place], [place] Lentigines; [phone] Seborrheic keratoses; [phone] Angiokeratomas Social History Tobacco Use Types Packs/Day Years [...] documented as of this encounter Progress Notes Haydee Rouse PA - 09/09/2018 2:00 PM EDT DERMATOLOGY - ESTABLISHED PATIENT CONSULT NOTE Date of service: 09/09/2018 Saundra Blanton : 1950, 68 y.o. CC: Chief Complaint Patient presents with ??? Skin Check HPI: Saundra Blanton is a 68 y.o. female last seen by Dr. Pierce on 06/16/2018 for excision of a severely dysplastic nevus of the left lateral thigh. Patient is here for a full skin exam with no areas of concern today. Relevant Skin History: - Okay to leave detailed message with results? Yes 03/03/2018: Left lateral thigh, severely atypical dysplastic nevus (excised, 06/16/2018) 05/23/2010: Left vertex of scalp, hemangioma (shave biopsy) Family History: Melanoma: None Relevant Social History: - Lives in [place], [place] Medications: Current Outpatient Medications Medication Sig Dispense Refill ??? calcium carbonate (OS-ABENA) 500 mg calcium (1,250 mg) Tablet Take by mouth. ??? diphenhydrAMINE (BENADRYL) 50 mg Capsule Take 50 mg by mouth. ??? ezetimibe (ZETIA) 10 mg Tablet take 1 tablet by mouth once daily 0 ??? oxyCODONE-acetaminophen (PERCOCET) 5-325 mg Tablet Take 5-325 mg by mouth. ??? valsartan (DIOVAN) 160 mg Tablet Take 160 mg by mouth. ??? losartan (COZAAR) 100 mg Tablet Take 100 mg by mouth daily. ??? colestipol (COLESTID) 1 gram Tablet Take 1 tablet by mouth 2 times daily. 60 tablet 11 ??? gabapentin (NEURONTIN) 300 mg Capsule TAKE 1 CAPSULE NIGHTLY 90 capsule 1 ??? irbesartan (AVAPRO) 150 mg Tablet Take 150 mg by mouth daily. ??? colestipol (COLESTID) 1 gram Tablet Take 1 tablet by mouth daily. 30 tablet 1 ??? acetaminophen/diphenhydramine (TYLENOL PM ORAL) Take by [...] mg by mouth 2 times daily. ??? DULoxetine (CYMBALTA) 60 mg capsule Take 60 mg by mouth daily. Indications: Fibromyalgia ??? loperamide (IMMODIUM) 2 mg tablet Take 2 mg by mouth 4 times daily as needed. ??? multivitamin (THERAGRAN) tablet Take 1 tablet by mouth daily. ??? OXYGEN-AIR DELIVERY SYSTEMS (HORIZON NASAL CPAP SYSTEM MISC) by [facility].(Non- Drug; Combo Route) route nightly. ??? TENS UNITS MISC by [facility].(Non-Drug; Combo Route) route. Tens machine Daily for back and leg ??? pantoprazole (PROTONIX) 40 mg tablet Take 40 mg by mouth daily. ??? simvastatin (ZOCOR) 20 mg tablet Take 20 mg by mouth nightly. ??? levothyroxine (SYNTHROID) 25 mcg tablet Take 37.5 mcg by mouth daily. No current facility-administered medications for this visit. Allergies: Allergies Allergen Reactions ??? Latex Rash and Other (See Comments) Red welts ??? Sulfa (Sulfonamide Antibiotics) Rash ??? Codeine Other (See Comments) Bad dreams ??? Adhesive Tape-Silicones Rash ??? Gluten ??? Hydrocodone-Acetaminophen Other (See Comments) Mental Status Changes ??? Penicillins ??? Unclassified Drug Other (See Comments) gluten Review of Systems: - General: Feels well. - Skin: No other skin concerns. Examination: - Constitutional: Patient was alert, well-appearing and in no noticeable distress. - Skin: A full body skin exam was performed. This includes examination of the skin of the face, ears, scalp, neck, chest, axillae, back, abdomen, left and right upper and lower extremities, hands, and feet. The genitalia were also examined with patient consent. Diagnosis/Skin findings/Assessment/Plan: 1. History of dysplastic nevus - Left lateral thigh: Well-healed scar s/p excision. - No evidence of recurrence. - Continue to monitor. 2. Benign appearing nevi - Scattered: Multiple, 0.3-0.5cm, medium-brown, evenly- pigmented macules and papules. All with regular pigment pattern on dermoscopy. No pigmented lesions suspicious for melanoma. - Patient reassured of benign nature. - No lesions suspicious for melanoma identified on exam today. Will continue to monitor. - Discussed importance of sun protection, sun avoidance strategies, protective clothing, and sunscreen. I discussed warning signs for skin cancer, including the ABCDEs of melanoma. ?? - Observe skin for change in color, size or character. Call if such occur. 3. Lentigines - Scattered: 0.3-0.6cm light-brown evenly pigmented, well- demarcated macules. - Patient reassured of benign nature. - Observe skin for change in color, size or character. Call if such occur. 4. Schreiber angiomas - Scattered: Multiple 0.2-0.4cm bright red, well-demarcated papules. - Patient reassured of benign nature. - No treatment necessary. 5. Angiokeratomas - Scattered on the vulva: 1mm purple/black non scaly demarcated thin papules. - Patient reassured of benign nature. - No treatment necessary. 6. Seborrheic keratoses - Scattered: Multiple 0.4-0.6cm brown papules with waxy, stuck-on appearance. Milia-like cysts, comedone-like openings and/or fissuring on dermoscopy. - Patient reassured of benign nature. - Advised patient to call if areas become inflamed or irritated. LOS: [id number] RTC: 1 year for FSE, sooner if needed. Routed for scheduling. Note initiated by Elke Falcon CMA. I, Jovita Jamil, have performed the documentation for this encounter in the presence of and acting as a scribe for Haydee Rouse PA-C (Bri). I performed the services which were documented by the scribe, and I agree with the accuracy of the documentation in this encounter. Haydee Rouse PA-C (Bri) Reviewed and signed by Haydee Rouse PA-C [facility] Patient seen in conjunction with staff welding process specialist: Kathie Poole MD Section of Dermatology [facility] Kathie Poole MD - 09/09/2018 2:00 PM EDT Patient seen and examined with Louisa Rouse PA-C. We reviewed the patient's history. I personally examined the patient. We discussed the assessment and plan. Specifically, ?? Expand All Collapse All I have seen and examined this patient.?? I evaluated the skin findings: ??- I noted multiple benign skin findings and healing excision site on left lateral thigh I went over the patient's history and discussed the symptoms. I discussed recommendations and therapeutic measures. ??- I agree with plan as documented by Louisa Rouse PA-C. We will see the patient back as planned; they will call if problems arise. Patient seen in conjunction with Haydee Rouse PA-C (Bri) Signed by: KATHIE POOLE MD Section of Dermatology [facility] documented in this encounter Plan of Treatment Upcoming Encounters Date Type Specialty Care Team Description 03/06/2022 Office Visit Cardiology Lizeth Frazier MD [facility] [address], [place] [address] (Wo rk) 03/18/2022 Office Visit Neurology Donovan Mayer MD [facility] ER NEUROLOGY DEPT. [place], [place] [address] (Wo rk) 04/24/2022 Appointment Hematology and Oncology 04/24/2022 Office Visit Hematology and Oncology Renea Navarro MD [facility] HEMATOLOGY/ONCOL [place] DEPT. [place], [place] [address] (Wo rk) documented as of this encounter Visit Diagnoses Diagnosis History of dysplastic nevus Personal history of diseases of skin and subcutaneous tissue Multiple benign nevi Benign neoplasm of skin, site unspecifie d Schreiber angiomas Nevus, non-neoplastic Lentigines Other dyschromia Seborrheic keratoses Other seborrheic keratosis Angiokeratomas Benign neoplasm of skin, site unspecifie d documented in this encounter Care Teams [employer]ifle Crewmember Relationship Specialty Start Date End Date Ingrid Espinosa APRN PCP - General Internal Medicine 07/28/17 [address] [place] [address] documented as of this encounter
--- OUTSIDE RECORDS SUMMARY | 2021-12-21 00:35 | XMS_ITS | Encounter Summary ---
:1950 Author Organization [facility] [place] [address] Care Team Providers Name Role Phone Ingrid Espinosa Uriel PALACIOS Primary Care Provider Reason for Visit Reason Comments Procedure Encounter Details Date Type Department Care Team Description 06/16/2018 Procedure visit [facility] MD Gela [address] [place] [id number] [facility] [place], [place] [address] Social History Tobacco Use Types Packs/Day Years [...] Sign Reading Time Taken Comments Blood Pressure 128/75 06/16/2018 4:01 PM EST Pulse 101 06/16/2018 4:01 PM EST Temperature - - Respiratory Rate - - Oxygen Saturation - - Inhaled Oxygen Concentration - - Weight - - Height - - Body Mass Index - - documented in this encounter Patient Instructions Patient InstructionsRosey Elliott, [employer]ING [employer] WORKERS - 06/16/2018 3:30 PM EST Your staff surgeon today was Des Pierce MD PhD. Instructions for the post- operative period are as below. Please keep as a reference: After Surgery 1. Avoid tobacco, smoking/vapors, cigars, and cannabis (marijuana) for at least 3 weeks after your surgery. These prevent proper healing and lead to worse scarring. Cutting back on tobacco is helpful if you cannot abstain completely. 2. Do not drink alcohol for roughly 3 days as this can slow healing or cause bleeding. 3. Do not participate in athletic activities for 1 week, unless you were told a different timeline during your visit. Athletic activity is a relative term, but this is considered to be anything that could potentially raise your heartrate or blood pressure. Elevating your heart rate and blood pressure increases the risk of swelling, bleeding, wound opening, and it could lead to worse scarring. Walkingat a leisurely pace is fine for most people, but not if you are walking for the purpose of exercise.When in doubt, take it easy or call us. 4. Do not lift anything heavier than 10 pounds for the first week unless told differently. 5. Some sheet metal duct installer apprentice may need to be delayed or delegated such as vacuuming, mowing the lawn, snow shoveling, or caring for young children that need to be carried/lifted. Working any major muscle groups increases your heart rate and can increasing bleeding. 6. Avoid swimming, hot tubs, and direct water pressure for 3 weeks after surgery. You may shower, however, once your initial bandage comes off in 48 hours. 7. Avoid antibiotic ointments such as triple antibiotic creams. 8. Whenever possible, it is helpful to take photographs with your camera or cell phone of any problems or concerns you see with your wound. We often ask for photos when you call with questions. 9. Starting 2 months following surgery, you can begin firm massage to any areas of firm scar along your incision to soften the scar and reduce bumpiness. Do this 3 times per day, 3 minutes each time. Do not start massage before 2 months. 10. Your wound will appear almost completely healed soon after sutures are removed (about 1 week), but incisions can remain bright red for several weeks. Then the scarring and healing process continuesunder the skin for 6 months until to 2 years. The scar may become less red, less firm, and more subtle during this time; please note that the rate of improvement varies depending on the person. Most redness, discoloration, bumpiness resolves by 6 months, and most patients will look presentable within a few weeks after surgery. 11. Keep your follow-up appointments and make sure to continue to have your skin checked, as often as is recommended by your hydraulic repairer, for new skin cancers. This is once per year for most patients. 12. Your can expect your scar to be red for several weeks with gradual fading of the redness. Your scar will also be raised and lumpy until the dissolvable sutures under the skin get absorbed by your body which can take 3-4 months. The scar will flatten eventually. a. If you have a skin condition called rosacea, the redness can last long-term, or you can get an increased appearance of red vessels to the skin. The appearance of vessels slightly improves, but tendsto respond well to laser treatments. 13. Occasionally, about 10-20% of the time on the face, the stitches under the skin can spit out of the incision to the surface. It can start out looking like a pimple or blemish directly on your incision. Sometimes you can feel something poking through the incision. it can look also minic a small area of infection, so please let us know before you go to another provider for antibiotics. This means that the suture may need to be trimmed or removed when you return for your wound check. This typically occurs a few weeks after surgery if it does occur. 14. To optimize your scar, and best cosmetic result, please avoid direct sunlight to your incision for the first 6 months following surgery. UV ray exposure to your incision may cause the redness to last longer, or to cause permanent darkening of your scar. You can avoid sun by covering your incision w ith a bandage when outdoors, wearing broad-rimmed hats, and wearing SPF 30 to 50 sunscreen (broad spectrum). 15. Your incision may still be healing up to 2 weeks after surgery. Because of this, avoid make-up and sunscreen until approximately 2 weeks after surgery. You can begin sooner if your skin edges look completely sealed. 16. Any time you have skin surgery or any type of surgery, you can experience mild sensation loss (numbness) in the area of surgery. Massage starting at 8 weeks after surgery can help. 17. Swelling and bruising is common, and expected, especially if your surgery site was on the forehead, cheeks, temples, nose, or eyelids. . Sometimes it can be quite profound, where the eyelids swell shut, or getting black eyes. This is especially true if you are on blood thinners such as aspirin. Swelling and bruising will peak at about 48 hours after surgery. Bruising and swelling will graduallyresolve. You can use ice packs or a bag of frozen peas for 15-20 minutes, 20 minutes off, up to 3-4 times daily to areas of swelling on the face. Use caution not to put the icy item directly onto your incision, or directly in contact with your skin as this can damage skin. Avoid prolonged use more than 20 minutes. The best way to use ice packs is over the bandage, or using a light cloth/paper towel barrier between the ice pack and your skin. You can ice for as many days as needed until swelling has resolved. Eyelid and lip swelling is typically the last type of swelling to resolve. Wound Care ??? Gently remove your initial bandage (after 48 hours from surgery). It is normal to have swelling and bruising. ??? Begin wound care as below. ??? If your initial bandage only stayed on for 24 hours (for example, falls off sooner), this is okay. Resume your wound care and bandaging instructions as below. ??? Change your bandage once a day (and whenever it becomes wet or soaks through) until your suturesare removed. If you have absorbable sutures, you do wound care for 1 week and then stop. ??? For bandage changes: o Wash hands with soap and water, or use gloves that you can purchase at a local pharmacy or drug store. o Clean the surgical area with cotton-tipped swabs or soft gauze dipped in soapy water (recommend liquid soap in clean room temperature water). Roll the cotton swab over the incision with soapy water, then with plain water, and then gently pat dry. Do not scrub the area with a washcloth. Do not put direct shower water pressure onto your wound. Do not pick off any scabs. It is okay to allow soapy water to run over your wound in the shower, however. o If you cannot remove any bloody or crusted areas, you may soak the area with wet gauze first for 15 to 20 minutes to help soften it o Pat the area dry with clean gauze or cotton swabs. Do not rub. o Use a cotton swab to apply a generous layer of petrolatum over the incision lines and any open-wound areas. o Make sure your tube or jar of petrolatum is new or unused to prevent prior contamination from entering your wound. Avoid double dipping. o After applying petrolatum, use a clean nonstick gauze or other nonstick dressing, such as Telfa. This may be purchased over the counter at a drug store. Do not use regular gauze as it will stick to your wound and can peel off healing skin with bandage changes. o Secure the bandage with paper tape or a bandage. Band-aids are okay, but typically have more adhesive that can irritate the skin compared to paper tape. This can be purchased at a drug store. o Continue this wound care daily until stitches are removed. This is typically for 5-7 days. If you had absorbable stitches used, you will do wound care for 1 week then stop. Keep in mind that if you do not want to use a bandage at all due to difficulty, allergies, irritation of skin, cost, time, or inconvenience --- you can certainly avoid bandages altogether. However, itis imperative that you continue with topical petrolatum ointment or Aquaphor (plain, fragrance-free). This may need to be applied several times daily if it gets wiped off, washed off, or dries out. Things to purchase for wound care: -Nonstick gauze -A tube or tub of petrolatum jelly (fragrance-free, no dye, not lotion) -paper tape -cotton swabs -gloves (optional) -Dial or other antibacterial liquid soap If you have specific questions or instructions, it can be written/typed by your nurse or doctor here: Antibiotics: If you were given antibiotic prescription, it is important to start them the evening of your surgerydate. However, most patients do not need antibiotics after surgery. For pain: Most patients of different ages do not require pain medications. If you do feel soreness, throbbing or sharp pains, start by taking over the counter extra strength acetaminophen (up to 3000 mg in a 24 hour period). Generally, we like you to avoid NSAIDS (non-steroid anti-inflammatory drugs such as ibuprofen) for the first 48 hours after surgery as this can increase risk of bleeding. However, if acetaminophen is not helping with pain, you can alternate acetaminophen with ibuprofen or other NSAID. Icepacks over your bandage without getting your bandage wet can also help with pain and swelling. Frozen peas work well as ice packs. THIS IS AN EXAMPLE OF A PAIN TREATMENT SCHEDULE: 1) You can take 500 mg acetaminophen one tablet by mouth at 6:00pm. This is over the counter. 2) You can take 400 mg of ibuprofen two hours later, at 8:00 pm, or other NSAID such as naproxen, aslong as it does not interact with your other medications and your other doctors have not told you toavoid this. This is over the counter. Check to see how many milligrams (mg) each of your ibuprofen tablets are. Most of the time, ibuprofen comes in 200 mg tablets, so 400 mg would mean taking two of these tablets or capsules. 3) You can take 500 mg of acetaminophen at 10:00 pm. Keep track of your total acetaminophen in a 24 hour period as your maximum should be 3000 mg total in a 24 hour period of this medication. 4) At midnight, you can take another 400 mg of ibuprofen. 5) you can continue on this schedule over the next 2 days, making sure to keep tabs of your total acetaminophen. If you are still in pain after trying the above, please call us. When to call your surgeon: ??? Fever of 100.4 degrees Fahrenheit or higher ??? Bleeding not controlled with direct firm pressure to your wound. Bleeding is most common in the first 48 hours. ??? Pain that is worsening and not relieved by over the counter medications such as acetaminophen (up to 3000 mg in a 24 hour period) ??? Wound reopening after stitching ??? Pus or bad odor from your wound ??? Worsening redness and warmth around your wound ??? If you think your surgery site is infected, please call us before seeking care or antibiotics from other providers ??? Please call us before seeking care in an emergency room or primary care. ??? If you do call, please leave your full name, phone number, date of , date of surgery, and medical record number if you have it. If after hours, please call the paper baling machine operator or [phone] and ask for the hydraulic repairer on-call. If you have any non-urgent questions or concerns, please feel free to call my office or contact me through our patient portal, [email or web address], at [email or web address] How to contact us during business hours Dermatology at [facility]: Mohs scheduling or Mohs follow-up appointments: [phone] documented in this encounter Progress Notes CallColeman - 06/16/2018 3:30 PM EST Images from the original note were not included. Dermatologic Surgery Operative Report (Procedure: Disc Excision) Patient: Saundra Blanton Date of . 1950 Today's Date: 06/16/2018 STAFF SURGEON: Cristi Pierce MD ASSISTANTS: Rosey Elliott Preoperative Diagnosis: Severly dysplastic nevus Postoperative Diagnosis: pending Pathology: Submitted for permanent pathology. Pending. Lesion Site (location): left lateral thigh Circumferential Margins Obtained: 3mm Final Diameter: 1.5 Total local anesthesia with 1% lidocaine with 1:100,000 epi used: 6 cc INDICATION Excision and direction of management PROCEDURE Disc Excision Prior to the procedure, final verification of the patient identity and correct marked surgical site was performed. Timeout was performed. PREOPERATIVE MEDICATION: [x] None Anesthesia used was 1% lidocaine with 1:100,000 epinephrine. The skin was prepped in a sterile fashion with with 2% chlorhexidine. The lesion was delineated with palpation and visualization and excised down to superficial subcutaneous fat in a circular fashion through skin and through the subcutaneous tissue. Excision left to heal by second intention, no skin sutures (not a repair, but for patient comfort). Estimated blood loss: Minimal. Complications: None. Wound care: Routine. Specimen sent to Dermatopathology. Biopsy report is pending. Follow up is pending on the results of this pathology report. POST-OPERATIVE MEDICATIONS: [x] NONE Reviewed and signed by Bakari Martel MD Resident in Dermatology [facility] Cristi Pierce MD PhD Mohs Micrographic Surgery and Dermatologic Oncology Section of Dermatology, Department of Surgery Des Pierce MD - 06/16/2018 3:30 PM EST Staff attestation: I, Des Pierce, served as staff central office operator supervisor for the case. I agree with Dr. Martel's documentation. I was present for batres portions of the major procedure(s) including consenting, marking out the site and margins, the excision of tissue, and the suturing/repair, and I was immediately available for the entire surgery. Des Pierce MD PhD Mohs Micrographic Surgery and Dermatologic Oncology Section of Dermatology, Department of Surgery documented in this encounter Plan of Treatment Upcoming Encounters Date Type Specialty Care Team Description 03/06/2022 Office Visit Cardiology Lizeth Frazier MD [facility] [address] (Amado quick) 03/18/2022 Office Visit Neurology Donovan Mayer MD [facility] NEUROLOGY DEPT. PAT[address]CAR[address] 0375 (Wo rk) 04/24/2022 Appointment Hematology and Oncology 04/24/2022 Office Visit Hematology and Oncology Renea Navarro MD [facility] HEMATOLOGY/ONCOL [facility] DEPT. [place], [place] [address] (Wo rk) documented as of this encounter Procedures Procedure Name Priority Date/Time Associated Diagnosis Comme nts SURGICAL PATHOLOGY Routine 06/16/2018 5:38 PM Res ults for this REPORT EST procedure are i n the results section. SPECIMEN TO Routine 06/16/2018 5:38 PM Dysplastic nevus Resul ts for this PATHOLOGY EST procedure are i n the results section. documented in this encounter Results Surgical Pathology Report (06/16/2018 5:38 PM EST) Component Value Ref Test Analysis Performed At [facility] Range Method Time Signature Surgical [id number] ? Location: [facility] Report The signing pathologist has (i) examined the relevant preparation(s) for the [facility] specimen(s) and (ii) rendered or confirmed the diagnosis(es) . HOSPITAL LABORATORY . ?Surgic al Pathology DIAGNOSIS A. Skin, left lateral thigh, ?? excision: - ??Negative for atypical melanocytic proliferation - Reparative changes consistent with previous operative site Electronically signed by: ??Peggy Canales MD Verified: ??06/18/2018 ?Dermatopathologist Performed at: ??-[facility] [place] Dept. of Pathology, [place], [place] CLINICAL INFORMATION Specimen Submitted: A - Skin, left lateral thigh, excision (1) Clinical History and Diagnosis: 68-year-old female with hist ory of severely dysplastic nevus of the left lateral thigh. Presents for excision. See [id number] SPECIMEN PROCESSING A - Labeled/Fixative: Left lateral thigh, formalin. Quantity/Size: ??Single, 1.3 x 1.3 x 0.3 cm. Tissue Description: Circular excision of grossman skin with a 0.7 x 0.7 cm grossman scar. Sections/Processing: Inked and entirely submitted in 2 cassettes as follows: ? A1: ??tips ? A2: ??body ??sns Specimen (Source) Anatomical Collection Method Collection Time Re ceived Time Location / / Volume Laterality 06/16/2018 5:38 PM EST Coleman Martel MD PATHOLOGY/CYTOLOGY ORDERABLE S Performing Organization Address City/[facility]/ZIP [facility] [place] [address] Specimen to Pathology (06/16/2018 5:38 PM EST) Specimen Anatomical Collection Method Collection Time Receive d Time (Source) Location / / Volume Laterality AP Specimen 06/16/2018 5:38 PM 9 9:21 EST AM EST Narrative [facility] - 06/17/2018 9:22 AM EST Specimen requisition ordered. ??Separate Pathology report to follow Resulting Agency Comment Spec In Lab Des Pierce MD PATHOLOGY/CYTOLOGY ORDERABLE S Performing Organization Address City/[facility]/ZIP [facility] [place] [address] documented in this encounter Visit Diagnoses Diagnosis Dysplastic nevus Benign neoplasm of skin, site unspecifie d documented in this encounter Care Teams Cream Separator Operator Relationship Specialty Start Date End Date Ingrid Espinosa APRN PCP - General Internal Medicine 07/28/[address] [place] [address] [place] [address] documented as of this encounter
--- OUTSIDE RECORDS SUMMARY | 2021-12-21 00:35 | XMS_ITS | Encounter Summary ---
:1950 Author Organization [facility] [place] [address] Care Team Providers Name Role Phone Ingrid Espinosa Uriel PALACIOS Primary Care Provider Encounter Details Date Type Department Care Team Description 03/24/2019 Hospital Encounter Hematology and CLL (ch ronic lymphocytic leukemia); Oncology at [facility] [place] [id number] Social History Tobacco Use Types Packs/Day Years [...] 0 (FLONASE) 50 route daily as mcg/actuation [place], needed. Suspension Bifidobacterium infantis Take by mouth. [...] 0 (SYNTHROID) 25 mcg mouth daily. tablet loratadine (CLARITIN) 10 Take 10 mg by [...] 03/06/2022 Office Visit Cardiology Martha Frazier MD [facility] 0375 (Wo rk) 03/18/2022 Office Visit Neurology Donovan Mayer MD [facility] NEUROLOGY DEPT. [place], [place] 0375 (Wo rk) 04/24/2022 Appointment Hematology and Oncology 04/24/2022 Office Visit Hematology and Oncology Renea Navarro MD [facility] HEMATOLOGY/ONCOL OGY DEPT. [place], [place] 0[address] (Wo rk) documented as of this encounter Procedures Procedure Name Priority Date/Time Associated Comments Diagnosis SCAN, PERIPHERAL BLOOD Routine 03/24/2019 1:43 PM Results for this EST procedure are i n the results section. HEMOGRAM Routine 03/24/2019 1:43 PM CLL (chronic Results f or this EST lymphocytic procedure are i n leukemia) the results Thrombocytopenia section. DIFFERENTIAL, Routine 03/24/2019 1:43 PM CLL (chronic Results for this AUTOMATED EST lymphocytic procedure are i n leukemia) the results Thrombocytopenia section. HC CBC,PLT & AUTO DIFF Routine 03/24/2019 1:43 PM CLL (chronic EST lymphocytic leukemia) Thrombocytopenia HC DIRECT Routine 03/24/2019 1:43 PM CLL (chronic Results f or this ANTI-GLOBULIN TEST, EST lymphocytic procedur e are in BROAD SPECTRUM leukemia) the results Thrombocytopenia section. HC VENIPUNCTURE Routine 03/24/2019 1:43 PM CLL (chronic Result s for this EST lymphocytic procedure are i n leukemia) the results Thrombocytopenia section. COMPREHENSIVE Routine 03/24/2019 1:43 PM CLL (chronic Results for this METABOLIC PANEL EST lymphocytic procedure ar e in (NON-FASTING) leukemia) the results Thrombocytopenia section. documented in this encounter Results Scan, Peripheral Blood (03/24/2019 1:43 PM EST) [facility] gist Method Time Signature Plat Estimate Decreased [facility] RBC Morphology Normal [facility] Smudge Cells Present [facility] Specimen Anatomical Collection Method Collection Time Receive d Time (Source) Location / / Volume Laterality Blood specimen 03/24/2019 1:43 PM 019 2:11 (specimen) EST PM EST Resulting Agency Comment Spec In Lab Virgilio Navarro MD HEMATOLOGY ORDERABLES Performing Organization Address City/State/ZIP Code Phon e Number [place] [phone] [facility] [address] (ABNORMAL) Differential, Automated (03/24/2019 1:43 PM EST) [facility] Method Time Signature Neutrophils % 11.1 % [facility] Neutr Abs (ANC) 4.43 1.70 - [facility] 6.10 [facility] x10(3)/[facility] LABORATORY Lymphocytes % 85.0 % [facility] Lymphocytes Abs 34.2 (H) 0.9 - 3.2 [facility] x10(3)/[facility] LABORATORY Monocytes % 2.8 % [facility] Monocyte Abs 1.1 (H) 0.3 - 0.9 [facility] x10(3)/[facility] LABORATORY Eosinophils % 0.5 % [facility] Eosinophils Abs 0.2 0.0 - 0.4 [facility] x10(3)/[facility] LABORATORY Basophils % 0.5 % [facility] Basophils Abs 0.2 (H) 0.0 - 0.1 [facility] x10(3)/[facility] LABORATORY Immature Gran % 0.10 % [facility] Comment: Immature granulocytes(IG's)percentage an d absolute count will include metamyelocytes, myelocytes, and promyelo cytes. Blood smears from CBCs yielding IG's will be scanned manually for concor dance. If this scan disagrees with the automated IG or if promyelocytes are not ed, a manual differential will be performed. Betty Gran Abs 0.06 (H) 0.00 - 0.04 x10(3)/[facility] LABORATORY Specimen Anatomical Collection Method Collection Time Receive d Time (Source) Location / / Volume Laterality Blood specimen 03/24/2019 1:43 PM 019 2:11 (specimen) EST PM EST Resulting Agency Comment Spec In Lab Virgilio Navarro MD HEMATOLOGY ORDERABLES Performing Organization Address City/State/[place] [address] (ABNORMAL) Hemogram (03/24/2019 1:43 PM EST) Patholo gist Method Time Signature WBC 40.2 4.0 - 9.5 [facility] (Critical) x10(3)/[facility] LABORATORY RBC 5.08 4.00 - [place] 5.21 [facility] x10(6)/[facility] LABORATORY Hemoglobin 14.9 11.7 - [facility] 15.[facility] gm/dL [facility] Hematocrit 46.7 (H) 35.7 - [facility] 45.8 % [facility] MCV 91.9 82.6 - [facility] 94.4 [facility] LABORATORY MCH 29.3 27.1 - [facility] 32.0 pg [facility] MCHC 31.9 31.7 - [facility] gm/dL [facility] Platelets 147 145 - 357 [facility] x10(3)/[facility] LABORATORY RDWSD 45.9 37.0 - [facility] 46.0 [facility] LABORATORY RDWCV 13.6 11.5 - [facility] 14.1 % [facility] MPV 11.6 7.6 - 12.9 [facility] LABORATORY nRBC % Auto 0.0 % [facility] nRBC Abs Auto 0.000 0.000 - [facility]000 [facility] x10(3)/[facility] LABORATORY Specimen Anatomical Collection Method Collection Time Receive d Time (Source) Location / / Volume Laterality Blood specimen 03/24/2019 1:43 PM 019 2:11 (specimen) EST PM EST Resulting Agency Comment Spec In Lab Virgilio Navarro MD HEMATOLOGY ORDERABLES Performing Organization Address City/State/Z[place] [address] Direct antiglobulin test (03/24/2019 1:43 PM EST) P athologist Signature LILIAN Negative [facility] Specimen Anatomical Collection Method Collection Time Receive d Time (Source) Location / / Volume Laterality Blood specimen 03/24/2019 1:43 PM 019 1:54 (specimen) EST PM EST Resulting Agency Comment Spec In Lab Virgilio Navarro MD BLOOD BANK ORDERABLES Performing Organization Address City/State/ZIP [place] [address] (ABNORMAL) Comprehensive metabolic panel (non-fasting) (03/24/2019 1:43 PM EST) P athologist Signature Glucose Lvl 104 65 - 199 [facility] mg/dL [facility] Comment: Diabetes: >=200 mg/dL plus symp toms BUN 17 8 - 18 mg/dL [facility] Creatinine 1.07 0.70 - 1.20 mg/dL [facility] Sodium 146 (H) 135 - 145 mmol/L [facility] Potassium 4.8 3.5 - 5.0 mmol/L [facility] Comment: Please note: ??Patients with WBC >100,00 0 may have falsely elevated Potassium levels. ??For accurate Potassium quantif ication in these patients send serum separator tube (gold top) for subsequent determinations. ??Contact the Clinical Chemistry Laboratory if there are any qu estions. Chloride 106 98 - 107 mmol/L [facility] CO2 27 22 - 31 mmol/L [facility] Anion Gap 13 5 - 15 mmol/L [facility] Calcium 10.2 8.5 - 10.5 mg/dL [facility] Total Protein 6.9 6.1 - 8.0 gm/dL [facility] Albumin 4.5 3.2 - 5.2 gm/dL [facility] AST 24 0 - 30 unit/L [facility] ALT 17 0 - 30 unit/L [facility] Alk Phos 62 35 - 105 unit/L [facility] Total Bilirubin 0.5 0.2 - 1.3 mg/dL [facility] Estimated GFR 53 (L) >=60 mL/min/1.73 m?? [facility] Comment: The eGFR was calculated using the CKD-EP I equation. As with all creatinine based estimates of kidney function, eGFR values calculated with the CKD-EPI equation are not accurate in patients wi th acute kidney failure, extremes of body mass or the acutely ill. http://[employer]/[facility] eGFR 61 >=60 mL/min/1.73 m?? [facility] Comment: The eGFR was calculated using the CKD-EP I equation. As with all creatinine based estimates of kidney function, eGFR values calculated with the CKD-EPI equation are not accurate in patients wi th acute kidney failure, extremes of body mass or the acutely ill. http://[employer]/[facility] Specimen Anatomical Collection Method Collection Time Receive d Time (Source) Location / / Volume Laterality Blood specimen 03/24/2019 1:43 PM 019 2:11 (specimen) EST PM EST Resulting Agency Comment Spec In Lab Virgilio Navarro MD CHEMISTRY ORDERABLES Performing Organization Address City/State/[place] [address] (ABNORMAL) Lactate Dehydrogenase (03/24/2019 1:43 PM EST) P athologist Signature LDH 234 (H) 110 - 220 [facility] Specimen Anatomical Collection Method Collection Time Receive d Time (Source) Location / / Volume Laterality Blood specimen 03/24/2019 1:43 PM 019 2:11 (specimen) EST PM EST Resulting Agency Comment Spec In Lab Virgilio Navarro MD CHEMISTRY ORDERABLES Performing Organization Address City/State/[place] [address] documented in this encounter Visit Diagnoses Diagnosis CLL (chronic lymphocytic leukemia) Chronic lymphoid leukemia, without menti on of having achieved remission Thrombocytopenia Thrombocytopenia, unspecified documented in this encounter Care Teams Supervisor Toy Assembly Relationship Specialty Start Date End Date Ingrid Espinosa APRN PCP - General Internal Medicine 07/28/17 [address] [place] [address] documented as of this encounter
--- OUTSIDE RECORDS SUMMARY | 2021-12-21 00:35 | XMS_ITS | Encounter Summary ---
:1950 Author Organization [facility] [place] [address] Care Team Providers Name Role Phone Ingrid Espinosa Uriel PALACIOS Primary Care Provider Reason for Visit Auth/Cert Specialty Diagnoses / Procedures Referred By Contact Refer red To Contact Diagnoses ?microscopic colitis ?IBD versus constipation split dose Procedures PRO COLONOSCOPY, DIAGNOSTIC PRO UPPER GI ENDOSCOPY, DIAGNOSTIC COLONOSCOPY, DIAGNOSTIC EGD, UPPER GI ENDOSCOPY Referral ID Status Reason Start Date Expiration Date Visits Requ ested Visits Authorized [id number] 1 1 Encounter Details Date Type Department Care Team Description 06/30/2018 Anesthesia Event Gastro[facility]ology [place] [facility] Leon Bridges MD [facility] [place] [address] [facility] Boris Goldberg CRNA [facility] [place] [address] [place] [address] Anesthesia Record Procedure Summary Procedure Name Responsible Anesthesia Start Anesthesia Stop Anesthesiologist Time Time COLONOSCOPY Cyrus WRIGHT Marc L, MD 06/30/18 1402 06/30 1450 WITH BX (WRVU 3.66) (N/A Abdomen) Events Date Time Event Comment 06/30/2018 1344 1402 AN Verify 1402 Start 1402 An Start Data 1406 An Induction 1450 an stop data 1450 Recovery or ICU Handoff Patient care was transferred to the destination unit staff after review of the patient's medica l history, current anesthetic/surgi uriel status and plan, according to the Provider Handoff Checklist. 1450 Stop Name Total IV Lidocaine 50 mg Propofol 70 mg Propofol INF 680 mg PHENYLephrine 160 mcg lactated Ringers infusion 400 mL Agents Name O2 Auxiliary Flowmeter 1 Blood No blood administrations on file. Lines, Drains, and Airways Type Details Placement Removal PIV 06/30/18; 1311; metacarpal 06/30/18 1311 by Timo parks, 06/30/18 1526 by vein (top of hand), right; DEEPA Eaton Ann M, RN [id number] catheter system; 20 gauge; Arden Bonilla RN; intradermal injection, distraction; removed per policy/procedure; 06/30/18; 1526 documented in this encounter Social History Tobacco Use Types Packs/Day Years [...] on file documented as of this encounter OR Notes Anesthesia Postprocedure Evaluation - Leon Bridges MD - 06/30/2018 3:05 PM EST [facility] Department of Anesthesiology Post-procedure Note Patient: Saundra Blanton Procedure Summary Date: 06/30/18 Room / Location: [facility] ENDO 6 / [facility] ENDOSCOPY Anesthesia Start: 1402 Anesthesia Stop: 1450 Procedures: COLONOSCOPY FLEXIBLE, WITH BX (WRVU 3.66) (N/A Abdomen) EGD WITH BIOPSY (WRVU 2.49) (N/A Abdomen) Diagnosis: Diarrhea, unspecified type Weight loss (?microscopic colitis ?IBD versus constipation) (split dose) Surgeon: Sunday Bolaños MD Responsible Provider: Leon Bridges MD Anesthesia Type: MAC ASA Status: 3 All Anesthesia Providers: Anesthesiologist: Leon Bridges MD EQUINE INTERN: Boris Chicas CRNA Vitals Value Taken Time BP 116/72 06/30/2018 3:00 PM Temp Pulse 66 06/30/2018 2:55 PM Resp 16 06/30/2018 2:55 PM SpO2 100 % 06/30/2018 3:04 PM Pain Level 0 06/30/2018 2:55 PM Vitals shown include unvalidated device data. Patient Location: PACU[facility] Level of Consciousness: Conscious but Sleepy Pain Management: Satisfactory Analgesia PONV: None Cardiovascular Status: At Baseline Respiratory Status: At Baseline Postoperative Fluid Status: Intravascular EUvolemia Possible Anesthetic Complications: NONE apparent at time of evaluation Final Primary Anesthesia Type: MAC (The anesthetic type performed was the same as planned.) Comments: Anesthesia Preprocedure Evaluation - Leon Bridges MD - 06/30/2018 10:35 AM EST Pre-Anesthesia Evaluation for: Saundra Blanton a 68 y.o. female. Procedure(s): COLONOSCOPY, DIAGNOSTIC EGD, UPPER GI ENDOSCOPY Patient Active Problem List Diagnosis ??? GERD [...] i. Repeat U/S OSH 2006 normal. C. care home anticoagulation since 2005. D. Thrombosis panel off warfarin 2011 nondiagnostic. D-dimer <200. ??? Right knee pain ??? Solar lentigo ??? Schreiber angioma ??? Lumbar radiculopathy ??? Carcinoid tumor ??? Migraine ??? Hypothyroid ??? Sleep apnea ??? Benign renal tumor ??? Depression ??? Hypertension ??? Elevated cholesterol ??? Obesity ??? CIS - Tinea pedis Past Medical History: Diagnosis Date ??? 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 Benign renal tumor 10/19/2010 ??? Carcinoid tumor 10/19/2010 ??? Depression 10/19/2010 ??? Elevated cholesterol 10/19/2010 ??? Gastric polyp ??? GERD (gastroesophageal reflux disease) ??? Hypertension ??? Lumbar radiculopathy 10/19/2010 ??? Migraine 10/19/2010 ??? Obesity 10/19/2010 ??? Sleep apnea 10/19/2010 Past Surgical History: Procedure Laterality Date ??? CATARACT REMOVAL WITH IMPLANT Bilateral ??? SECTION 1986 ??? CHOLECYSTECTOMY 2006 ??? CREATED BY INTERFACE Entered not Verified Procedure Date: 05/22/2010 ??? CREATED BY INTERFACE No History of Operative Procedures Procedure Date: 05/22/2010 ??? ENDOSCOPY, UPPER GI, SIMPLE PRIMARY EXAM ??? LUMBAR SPINE SURGERY 1976 discectomy , [facility] ??? TOE SURGERY right ??? UPPER GASTROINTESTINAL ENDOSCOPY removal of carcinoid ??? WISDOM TOOTH EXTRACTION Social History Tobacco Use ??? Smoking status: Never Smoker ??? Smokeless tobacco: Never Used Substance Use Topics ??? Alcohol use: No Frequency: Never Social History Substance and Sexual Activity Drug Use No Comment: denies illicit drug use or abuse Allergies Allergen Reactions ??? Latex Rash and Other (See Comments) Red welts ??? Sulfa (Sulfonamide Antibiotics) Rash ??? Codeine Other (See Comments) Bad dreams ??? Adhesive Tape-Silicones Rash ??? Gluten ??? Hydrocodone-Acetaminophen Other (See Comments) Mental Status Changes ??? Penicillins ??? Unclassified Drug Other (See Comments) gluten Medications: MAR and/or home medications have been reviewed. Physical Exam: There were no vitals filed for this visit. There is no height or weight on file to calculate BMI. Airway Assessment: Mallampati: II TM distance: >3 FB Neck ROM: full Cardiovascular Assessment: Rhythm: regular Rate: normal Pulmonary Assessment: Dental Assessment: - normal exam Misc Assessment: IV access: Peripheral line Other exam findings: PIV in situ. Runs well w/o complaint. Anesthesia Plan: ASA 3 MAC, with a(n) intravenous induction 68 yro with persistent diarrhea presenting for EGD and Colonoscopy. PMHx notable for obesity, CARLOS (+CPAP), GERD, HTN, CLL and Carcinoid (no evidence of recurrence on recent scan). Denies recent URI, f/s/c, asthma/breathing issues or cardiac Hx/CP. No prior issues with anesthesia. NPO status appropriate. . Plan: Deep sedation, standard monitors. Region - Other Informed Consent: Anesthetic plan and risks discussed with patient. Plan discussed with EQUINE INTERN. PAT Staff Note documented in this encounter Plan of Treatment Upcoming Encounters Date Type Specialty Care Team Description 03/06/2022 Office Visit Cardiology Lizeth Frazier MD [facility] [address] [place] [address] (Wo rk) 03/18/2022 Office Visit Neurology Donovan Mayer MD [facility] NEUROLOGY DEPT. [place], [place] [address] (Wo rk) 04/24/2022 Appointment Hematology and Oncology 04/24/2022 Office Visit Hematology and Oncology Renea Navarro MD [facility] HEMATOLOGY/ONCOL [place] DEPT. [place], [place] 0[address] (Wo rk) documented as of this encounter Visit Diagnoses Not on filedocumented in this encounter Administered Medications Inactive Administered Medications - up to 3 most recent administrations Medication Order MAR Action Action Date Dose Rate Site lactated Ringers infusion New Bag 06/30/2018 2:02 PM EST 100 mL/hr, Intravenous, CONTINUOUS, Starting on Fri06/30/18 at 1330, Until Fri06/30/18 at 1526, Endoscopy (Day of Procedure) New Bag 06/30/2018 1:12 PM EST 100 mL/hr 100 mL/hr lidocaine (PF) (XYLOCAINE) 100 mg/5 mL (2 %) Given 9 2:06 PM EST 50 mg injection PRN, Starting on Fri06/30/18 at 1406, Until Fri06/30/18 at 1450, Anesthesia Intra-op, Routine PHENYLephrine in NS (PF) (ELISEO-SYNEPHRINE) Given 06/30/2018 2:42 PM EST 160 mcg 0.8 mg/10 mL (80 mcg/mL) multi-dose injection Syrg PRN, Starting on Fri06/30/18 at 1442, Until Tu06/30/18 at 1450, Anesthesia Intra-op, Routine propofol (DIPRIVAN) 10 mg/mL bolus injection Given 9 2:06 PM EST 70 mg (Anesthesia) PRN, Starting on Fri06/30/18 at 1406, Until Tu06/30/18 at 1450, Anesthesia Intra-op propofol (DIPRIVAN) Rate/Dose Change 06/30/2018 2:36 100 mcg/kg/min 6 0 mL/hr infusion PM EST CONTINUOUS PRN, Starting on Fri06/30/18 at 1406, Until Fri06/30/18 at 1450, Anesthesia Intra-op, Routine Rate/Dose Change 06/30/2018 2:28 PM EST 150 mcg/kg/min 90 mL/hr New Bag 06/30/2018 2:06 PM EST 200 mcg/kg/min 120 mL/hr documented in this encounter Care Teams Graphic User Interface Designer Relationship Specialty Start Date End Date Ingrid Espinosa APRN PCP - General Internal Medicine 07/28/[address] [place] [address] [place] [address] documented as of this encounter
--- OUTSIDE RECORDS SUMMARY | 2021-12-21 00:35 | XMS_ITS | Encounter Summary ---
:1950 Author Organization [facility] [place] [address] Care Team Providers Name Role Phone Ingrid Espinosa APRN Primary Care Provider Reason for Visit Auth/Cert Specialty Diagnoses / Procedures Referred By Contact Refer red To Contact Diagnoses ?microscopic colitis ?IBD versus constipation split dose Procedures PRO COLONOSCOPY, DIAGNOSTIC PRO UPPER GI ENDOSCOPY, DIAGNOSTIC COLONOSCOPY, DIAGNOSTIC EGD, UPPER GI ENDOSCOPY Referral ID Status Reason Start Date Expiration Date Visits Requ ested Visits Authorized [id number] 1 1 Encounter Details Date Type Department Care Team Description 06/30/2018 Hospital Encounter Gastroenterology at [facility] Sunday Bolaños, [facility] [place] [address] [facility] [phone] CENTER GASTROENTEROLOGY [place], [place] [address] Social History Tobacco Use Types [...] Sign Reading Time Taken Comments Blood Pressure 130/82 06/30/2018 3:20 PM EST Pulse 66 06/30/2018 2:55 PM EST Temperature 36.7 ??C (98.1 ??F) 06/30/2018 1:07 PM EST Respiratory Rate 16 06/30/2018 2:55 PM EST Oxygen Saturation 100% 06/30/2018 3:20 PM EST Inhaled Oxygen Concentration - - [...] to be checked. Friday-Friday Same Day Endo [phone] 7a-8p Otherwise contact [phone] and ask to speak to the cut off man mobile application developer Follow up care is a batres part [...] (THERAGRAN) tablet mouth daily. OXYGEN-AIR DELIVERY by [facility].(Non-Drug; 0 SYSTEMS (HORIZON NASAL Combo Route) route [...] capsuleIndications: Fibromyalgia fibromyalgia TENS UNITS MISC by [facility].(Non-Drug; 0 0 01/13/2019 Combo Route) route. Tens [...] Cardiology Lizeth Frazier MD [facility] [address] [place] [address] (Wo rk) 03/18/2022 Office Visit Neurology Donovan Mayer MD [facility] NEUROLOGY DEPT. [place], [place] [address] (Wo rk) 04/24/2022 Appointment Hematology and Oncology 04/24/2022 Office Visit Hematology and Oncology Renea Navarro MD [facility] HEMATOLOGY/ONCOL CLAUDE DEPT. [place], [place] [address] (Wo rk) documented as of [...] PM 9 3:59 EST PM EST Narrative [facility] - 06/30/2018 3:59 PM EST Specimen requisition ordered. ??Separate Pathology report to follow Resulting Agency Comment Spec In Lab Sunday Bolaños MD PATHOLOGY/CYTOLOGY ORDERABLE S Performing Organization Address City/State/[place] [address] Surgical Pathology Report (06/30/2018 2:24 PM EST) Component Value Ref Test Analysis Performed At Patholo gist Range Method Time Signature Surgical [id number] ? Location: 4T; EA09; A [facility] Pathology [place] Report The signing pathologist has (i) examined [...] Covarrubias MD Verified: ??07/02/2018 ?Pathologist Performed at: ??-[facility] Dept. of Pathology, [place], [place] CLINICAL INFORMATION Specimen Submitted: A - [...] MD PATHOLOGY/CYTOLOGY ORDERABLE S Performing Organization Address City/[facility]/ZIP [facility] [place] [address] Specimen to Pathology (06/30/2018 2:24 PM EST) Specimen Anatomical Collection Method Collection Time Receive d Time (Source) Location / / Volume Laterality AP Specimen 06/30/2018 2:24 PM 9 3:59 EST PM EST Narrative [facility] OR - 06/30/2018 3:59 PM EST Specimen requisition ordered. ??Separate Pathology report to follow Resulting Agency Comment Spec In Lab Sunday Bolaños MD PATHOLOGY/CYTOLOGY ORDERABLE S Performing Organization Address City/[facility]/[place] [address] Specimen to Pathology (06/30/2018 2:24 PM EST) Specimen Anatomical Collection Method Collection Time Receive d Time (Source) Location / / Volume Laterality AP Specimen 06/30/2018 2:24 PM 9 3:59 EST PM EST Narrative [facility] OR - 06/30/2018 3:59 PM EST Specimen requisition ordered. ??Separate Pathology report to follow Resulting Agency Comment Spec In Lab Sunday Bolaños MD PATHOLOGY/CYTOLOGY ORDERABLE S Performing Organization Address City/State/[place] [address] Specimen to Pathology (06/30/2018 2:24 PM EST) Specimen Anatomical Collection Method Collection Time Receive d Time (Source) Location / / Volume Laterality AP Specimen 06/30/2018 2:24 PM 9 3:59 EST PM EST Narrative [facility] OR - 06/30/2018 3:59 PM EST Specimen requisition ordered. ??Separate Pathology report to follow Resulting Agency Comment Spec In Lab Sunday Bolaños MD PATHOLOGY/CYTOLOGY ORDERABLE S Performing Organization Address City/[facility]/[place] [address] Specimen to Pathology (06/30/2018 2:24 PM EST) Specimen Anatomical Collection Method Collection Time Receive d Time (Source) Location / / Volume Laterality AP Specimen 06/30/2018 2:24 PM 9 3:59 EST PM EST Narrative [facility] OR - 06/30/2018 3:59 PM EST Specimen requisition ordered. ??Separate Pathology report to follow Resulting Agency Comment Spec In Lab Sunday Bolaños MD PATHOLOGY/CYTOLOGY ORDERABLE S Performing Organization Address City/[facility]/[place] [address] UPPER GI ENDOSCOPY (06/30/2018 2:04 PM EST) [facility] Method Time Signature UPPER GI [facility] PROVATION ENDOSCOPY Endoscopy Procedure Date: 06/30/2018 2:04 PM ? Patient Name: Saundra Blanton ? Date of : 1950 ? Age: 68 ? Order #: [id number] ? Instrument Name: [id number] ? Procedure: ? Upper GI endoscopy Indications: [...] reactions. The ? Endoscope was introduced thro [facility] the ? mouth, and advanced to the [facility] part ? of duodenum. The patient tole rated ? the procedure well. The upper GI ? endoscopy was accomplished [facility] ? difficulty. The patient trish ated the [...] Laterality 06/30/2018 2:04 PM EST Ingrid Espinosa BEAUTY CONSULTANT GENERAL SURGICAL ORDERABLES Performing Organization Address City/State/ZIP Code Phon e Number PROVATION COLONOSCOPY (06/30/2018 2:01 PM EST) [facility] gist Method Time Signature COLONOSCOPY [facility] PROVATION Endoscopy Procedure Date: 06/30/2018 2:01 PM ? Patient Name: Saundra Blanton ? N: [id number] ? Date of : 1950 ? Age: 68 ? Order #: [id number] ? Instrument Name: [id number] ? Procedure: ? Colonoscopy Indications: ? Chronic diarrhea Providers: ? Sunday Bolaños MD, Tammy ? Roman Smith, Julieth Ordaz MD: ?Suri Osman r Medicines: ? Propofol [...] withdrawn. Th e ? colonoscopy was performed fahad [place] ? difficulty. The patient trish ated the ? procedure well. The quality o f the ? bowel preparation was evaluat ed using ? the BBPS ([place] Bowel Prepar ation ? Scale) with scores [...] PROVATION documented in this encounter Visit Diagnoses Not [...] Procedure) documented in this encounter Care Teams Tanker Serviceman Relationship Specialty Start Date End Date Ingrid Espinosa APRN PCP - General Internal Medicine 07/28/[address] [place] [address] documented as of this encounter
--- OUTSIDE RECORDS SUMMARY | 2021-12-21 00:35 | XMS_ITS | Encounter Summary ---
:1950 Author Organization [place] [address] Care Team Providers Name Role Phone Ingrid Espinosa SOCIOLOGY ADJUNCT INSTRUCTOR Primary Care Provider Encounter Details Date Type Department Care Team Description 04/20/[address] [facility] Acklfrankie, Basilio Angiomyolipoma of both [facility], [place] [address] Social History Tobacco Use Types Packs/Day Years [...] Visit Cardiology Lizeth Frazier MD [facility] [place], [place] [address] (Amado quick) 03/18/2022 Office Visit Neurology Donovan Mayer MD [facility] ER NEUROLOGY DEPT. 0375 (Wo rk) 04/24/2022 Appointment Hematology and Oncology 04/24/2022 Office Visit Hematology and Oncology Renea Navarro MD [facility] er HEMATOLOGY/ONCOL CLAUDE DEPT. [place], [place] [address] (Wo rk) documented as of this encounter Results US Retroperitoneal Complete (12/13/2019 [...] 02:54 pm) PATIENT INFO: ID #: ? [id number] ?: ??[birth year] (69 yrs)(F) Name: ? SAUNDRA DHALIWAL ? Visit Date: 12/13/2019 01:43 pm PERFORMED BY: Performed By: ? Dora Arias RDMS Attending: ?Martínez WHITLEY, Magda Milligan Referred By: ?LISSY GUTIERREZ Location: ? [place] SERVICE(S) PROVIDED: ??URETRO - Retroperitoneal Complete - I [id number] ? [id number] INDICATIONS: ??bilateral angiomyolipomas. RIGHT KIDNEY: Size (cm) ?L: ??11.1 Cortical Thickness: ?Normal Cortical Echogenicity: ?? Normal Hydronephrosis: ?No sonogr aphic evidence -------- Lesions: -------- ??# ?Date ?Location ?Description ?L ? AP ? TV (cm) ??1 ?12/13/19 ?Lower pole ? Angiomyolipo ?1.3 ?1.4 ? 1.5 ? ma ??1 ?03/21/16 ?Medial/ ? Angiomyolipo ?1.1 ?1.1 ? 1.2 ? Inferior ?ma ??1 ?07/11/15 ?Mid/Lower ? Angiomyolipo ?1.7 ?1.2 ? 2.4 ? Pole ?ma ??1 ?03/09/13 ?MID/Lower ? Angiomyolipo ?2.3 ?1.7 ? 2.0 ? Pole ?ma ? Lateral ??1 ?10/15/12 ?Lower pole ? Angiomyolipo ?1.2 ?1.6 ? 2.0 ? lateral ? ma ??# ?Date ?Location ?Description ?L ? AP ? TV (cm) ??1 ?/14/10 ?Lower pole ? Angiomyolipo ?1.1 ?1.2 ? 1.1 ? ma ??2 ?//20 ?Mid Lateral ?? A ngiomyolipo ?5.0 ?2.6 ? 3.7 ? ma ??2 ?18 ?Lower pole ? Angiomyolipo ?1.2 ?1.2 ? 1.0 ? ma ??2 ?08/06/16 ?Mid / ? Angiomyolipo ?0.5 ?0.5 [...] ? AP ? TV (cm) ??1 ?12/13/19 ?Upper pole ? Angiomyolipo ?1.7 ?1.6 ? 1.7 ? ma ??1 ?07/28/17 ?Upper pole ? Angiomyolipo ?1.6 ?1.0 ? 1.5 ? ma ??1 ?03/21/16 ?Upper pole ? Angiomyolipo ?1.4 ?1.7 ? 1.8 ? ma ??1 ?07/11/15 ?Upper pole ? Angiomyolipo ?1.8 ?1.6 ? 1.6 ? ma ??1 ?03/09/13 ?Upper pole ? Angiomyolipo ?1.4 ?1.8 ? 1.4 ? ma ??1 ?10/15/12 ?Upper pole ? Angiomyolipo ?1.6 ?1.2 ? 1.4 ? ma ??1 ?06/14/10 ?Upper pole ? Angiomyolipo ?2.4 ?1.6 ? 1.4 ? ma ??2 ?07/27/20 ?Lower pole ? Angiomyolipo ?2.6 ?1.5 ? 1.7 ? ma ??2 ?//18 ?Lower pole ? Angiomyolipo ?2.5 ?1.3 ? 1.4 ? ma ??2 ?08/06/16 ?Lower pole ? Angiomyolipo ?1.8 ?1.6 ? 1.5 ? ma ??2 ?07/11/14 ?Lower pole ? Angiomyolipo ?1.7 ?1.5 ? 1.6 ? ma ??2 ?10/22/13 ?Lower pole ? Angiomyolipo ?1.9 ?1.5 ? 1.6 ? ma ??# ?Date ?Location ?Description ?L ? AP ? TV (cm) ??2 ?10/15/12 ?Lower pole ? Angiomyolipo ?2.6 ?1.4 ? 1.5 ? ma ??2 ?/14/10 ?Lower pole ? Angiomyolipo ?1.7 ?1.3 ? 1.4 ? ma URINARY BLADDER: Pre-void (cm) ? L: ??3.2 ? A P: ??3.6 ? TV: ??6.7 Vol (ml): ?40.4 Comment: ?Partially distended, norm al contour Procedure Note Magda Soliz MD - 12/13/2019Formattin g of this note might be different from the original. Renal (Signed Final 12/13/2019 02:54 pm ) PATIENT INFO: ID #: [id number] : [birth year] (69 y rs)(F) Name: SAUNDRA DHALIWAL Visit Date: 2019 01:43 pm PERFORMED BY: Performed By: Dora Arias RDMS Attending: Magda Soliz MD Referred By: LISSY GUTIERREZ Location: [place] SERVICE(S) PROVIDED: URETRO - Retroperitoneal Complete - [id number] INDICATIONS: bilateral angiomyolipomas. RIGHT KIDNEY: Size (cm) [...] questions regarding this report, please contact t he number below. 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
--- OUTSIDE RECORDS SUMMARY | 2021-12-21 00:35 | XMS_ITS | Encounter Summary ---
:1950 Author Organization [facility] [place] [address] Care Team Providers Name Role Phone FranciscaGuillerminaIngridcresencio Trevino APRN Primary Care Provider Reason for Visit Diagnostic Test (Routine) - Closed Specialty Diagnoses / Procedures Referred By Contact Refer red To Contact Radiology Diagnoses Diarrhea, unspecified type Suri Newton, [facility] Rad Nuclear Med Procedures NM [facility]re[facility] [place] [address] [place] [address] Referral ID Status Reason Start Date Expiration Date Visits V isits Requested Authorized [id number] Closed Specialty 05/21/2018 05/21/2019 3 3 Service Requested Encounter Details Date Type Department Care Team Description 06/16/2018 Hospital Encounter [facility] [place] [address] GASTROENTEROLOGY [phone] [place], [place] [address] (Wo rk) Social History Tobacco Use Types [...] (THERAGRAN) tablet mouth daily. OXYGEN-AIR DELIVERY by [facility].(Non-Drug; 0 SYSTEMS (HORIZON NASAL Combo Route) route CPAP SYSTEM [facility]) nightly. levothyroxine Take 37.5 mcg by 0 [...] capsuleIndications: Fibromyalgia fibromyalgia TENS UNITS MISC by Misc.(Non-Drug; 0 0 01/13/2019 Combo Route) route. Tens machine Daily for back and leg pantoprazole (PROTONIX) Take 40 mg by mouth 0 01/13/2019 40 mg tablet daily. simvastatin (ZOCOR) 20 Take 20 mg by mouth 0 01/13/2019 mg tablet nightly. documented as of this encounter Plan of Treatment Upcoming Encounters Date Type Specialty Care Team Description 03/06/2022 Office Visit Cardiology Lizeth Frazier MD [facility] [place], [place] [address] (Wo rk) 03/18/2022 Office Visit Neurology Donovan Mayer MD [facility] NEUROLOGY DEPT. [place], [place] [address] (Wo rk) 04/24/2022 Appointment Hematology and Oncology 04/24/2022 Office Visit Hematology and Oncology Renea Navarro MD [facility] HEMATOLOGY/ONCOL OGY DEPT. [place], [place] [address] (Wo rk) documented as of [...] e number below. ? Electronically signed by: Leon Baeza [facility] ([phone]), at 06/17/2018 12:38 PM Narrative 06/17/2018 12:38 PM EST EXAMINATION: NM [...] contact e number below. Electronically signed by: Leon Baeza [facility] ([phone]), at 06/17/2018 12:38 PM Suri Newton APRN IMG [place] ORDERABLES documented in this encounter Visit Diagnoses Not on filedocumented in this encounter Care Teams Remanufacturing Technician Relationship Specialty Start Date End Date Ingrid Espinosa APRN PCP - General Internal Medicine 07/28/17 [facility] [place] [address] [address] [place] [address] documented as of this encounter
--- OUTSIDE RECORDS SUMMARY | 2021-12-21 00:36 | XMS_ITS | Encounter Summary ---
:1950 Author Organization [facility] [place] [address] Care Team Providers Name Role Phone Ingrid Espinosa Uriel PALACIOS Primary Care Provider Encounter Details Date Type Department Care Team Description 05/06/2018 Orders Only Gastroenterology at [facility] Suri Newton, [facility] [place] [address] [facility] [phone] GASTROENTEROLOGY [place], [place] [address] (Wo rk) Social History Tobacco [...] Frazier MD [facility] [address] [place] [address] (Wo rk) 03/18/2022 Office Visit Neurology Donovan Mayer MD [facility] ER NEUROLOGY DEPT. [place], [place] [address] (Wo rk) 04/24/2022 Appointment Hematology and Oncology 04/24/2022 Office Visit Hematology and Oncology Renea Navarro MD [facility] HEMATOLOGY/ONCOL OGY DEPT. [place], [place] [address] (Wo rk) documented as of this encounter Visit Diagnoses Not on filedocumented in this encounter Care Teams Art Framing Manager Relationship Specialty Start Date End Date Ingrid Espinosa APRN PCP - General Internal Medicine 07/28/[address] [place] [address] documented as of this encounter
--- OUTSIDE RECORDS SUMMARY | 2021-12-21 00:36 | XMS_ITS | Encounter Summary ---
:1950 Author Organization [facility] Address [facility] [address] [place] [address] Care Team Providers Name Role Phone Fitz Jenkins MD Primary Care Provider [phone] Encounter Details Date Type Department Care Team Description 06/02/2017 Orders Only [place] [facility] [place]issy Gutierrez MD Benign neoplasm of [facility]airon, unspecified [place] [address] UROLOGY [phone] [place], [place] [address] Social History Tobacco Use Types Packs/Day Years Used Date Never Smoker Smokeless Tobacco: Never Used Alcohol Use Standard Drinks/Week Comments Yes 0 (1 standard drink = 0.6 oz pure very r are use, denies ETOH abuse alcohol) Alcohol Habits Answer Date Recorded How often do you have a drink Never 04/16/2018 containing alcohol? How many drinks containing alcohol do Not asked you have on a typical day when you are drinking? How often do you have six or more Not asked drinks on one occasion? Comment: very rare use, denies ETOH abuse 017 Sex Assigned at Date Recorded Not on file documented as of this encounter Plan of Treatment Upcoming Encounters Date Type Specialty Care Team Description 03/06/2022 Office Visit Cardiology Lizeth Frazier MD [facility] [address] [place] [address] (Wo rk) 03/18/2022 Office Visit Neurology Donovan Mayer MD [facility] DR NEUROLOGY DEPT. [place], [place] [address] (Wo rk) 04/24/2022 Appointment Hematology and Oncology 04/24/2022 Office Visit Hematology and Oncology Renea Navarro MD [facility] Dr HEMATOLOGY/ONCOL OGY DEPT. [place], [place] [address] (Wo rk) documented as of this encounter Results US Retroperitoneal Complete (07/28/2017 3:54 PM EDT) Anatomical Region Laterality Modality Abdomen Ultrasound Specimen (Source) Anatomical Collection Method Collection Time Re ceived Time Location / / Volume Laterality 07/28/2017 3:54 PM EDT Impressions 07/28/2017 4:20 PM EDT ??Small bilateral angiomyolipomas, acco unting fordifferences in imaging technique, I do not feel these are changed significantlyin size compar ed to the patient's 2016 study. We could only see oneangiomyolipoma on the RIGHT and 2 on the LEFT today due to limited imaging ofthe RIGH T kidney from bowel gas. The one on the RIGHT may be slightly largerthan the given measurements as it blends with the extrarenal fat, I believe itremains under 2.5 cm however ?Magda Mejia MD Electronically Signed Final Report ?? 04:20 pm Narrative 07/28/2017 4:20 PM EDT Renal ? (Signed Final 07/28/2017 04:20 pm) PATIENT INFO: ID #: ? [id number] ?: ??[birth year] (67 yrs) Name: ? SAUNDRA DHALIWAL ? Visit Date: 07/28/2017 03:54 pm PERFORMED BY: Performed By: ? Chris Lopez RDMS Attending: ?Martínez WHITLEY, Magda Milligan Referred By: ?LISSY GUTIERREZ Location: ? [place] SERVICE(S) PROVIDED: ??URETRO - Retroperitoneal Complete - I [id number] ? [id number] INDICATIONS: ??history of renal tumor COMPARISON: Ultrasound: 08/07/15. RIGHT KIDNEY: Size (cm) ?L: ??9.6 Cortical Thickness: ?Normal Cortical Echogenicity: ?? Normal Hydronephrosis: ?No sonogr aphic evidence -------- Lesions: -------- ??# ?Date ?Location ? Description ? L ? AP ? TV (cm) ??1 ?08/07/15 ?Medial/ ? Angiomyolipo ? 1.1 ?1.1 ?1.2 ? Inferior ? ma ??# ?Date ?Location ? Description ? L ? AP ? TV (cm) ??1 ?07/11/14 ?Mid/Lower ?A ngiomyolipo ? 1.7 ?1.2 ?2.4 ? Pole ? ma ??1 ?03/09/13 ?MID/Lower ?A ngiomyolipo ? 2.3 ?1.7 ?2.0 ? Pole ? ma ? Lateral ??1 ?10/15/12 ?Lower pole ?? An giomyolipo ? 1.2 ?1.6 ?2.0 ? lateral ?ma ??1 ?/14/10 ?Lower pole ?? An giomyolipo ? 1.1 ?1.2 ?1.1 ?ma ??2 ?07/28/17 ?Lower pole ?? An giomyolipo ? 1.2 ?1.2 ?1.0 ?ma ??2 ?08/07/15 ?Mid / ?Angiomyolipo ? 0.5 ?0.5 ?0.3 ? Inferior ? ma ??2 ?07/11/14 ?Mid pole ? A ngiomyolipo ? 0.7 ?0.5 ?5.0 ?ma ??2 ?03/09/13 ?Lower pole ?? An giomyolipo ? 0.5 ?0.7 ?0.6 ?ma ??2 ?03/02/12 ?Lower pole ?? An giomyolipo ? 0.4 ?0.2 ?0.5 ?ma ??2 ?10/30/10 ?Lower pole ?? An giomyolipo ? 0.4 ?0.5 ?0.3 ?ma ??3 ?07/11/14 ?Mid pole ? A ngiomyolipo ? 0.5 ?0.4 ?0.5 ?ma LEFT KIDNEY: Size (cm) ?L: ??11.2 Cortical Thickness: ?Normal Cortical Echogenicity: ?? Normal Hydronephrosis: ?No sonogr aphic evidence -------- Lesions: -------- ??# ?Date ?Location ? Description ? L ? AP ? TV (cm) ??1 ?07/28/17 ?Upper pole ?? An giomyolipo ? 1.6 ?1.0 ?1.5 ?ma ??1 ?08/07/15 ?Upper pole ?? An giomyolipo ? 1.4 ?1.7 ?1.8 ?ma ??1 ?07/11/14 ?Upper pole ?? An giomyolipo ? 1.8 ?1.6 ?1.6 ?ma ??1 ?03/09/13 ?Upper pole ?? An giomyolipo ? 1.4 ?1.8 ?1.4 ?ma ??1 ?03/02/12 ?Upper pole ?? An giomyolipo ? 1.6 ?1.2 ?1.4 ?ma ??1 ?/14/10 ?Upper pole ?? An giomyolipo ? 2.4 ?1.6 ?1.4 ?ma ??2 ?07/28/18 ?Lower pole ?? An giomyolipo ? 2.5 ?1.3 ?1.4 ?ma ??2 ?08/06/16 ?Lower pole ?? An giomyolipo ? 1.8 ?1.6 ?1.5 ?ma ??2 ?02/23/15 ?Lower pole ?? An giomyolipo ? 1.7 ?1.5 ?1.6 ?ma ??2 ?10/22/13 ?Lower pole ?? An giomyolipo ? 1.9 ?1.5 ?1.6 ?ma ??# ?Date ?Location ? Description ? L ? AP ? TV (cm) ??2 ?03/02/12 ?Lower pole ?? An giomyolipo ? 2.6 ?1.4 ?1.5 ?ma ??2 ?10/30/09 ?Lower pole ?? An giomyolipo ? 1.7 ?1.3 ?1.4 ?ma URINARY BLADDER: Pre-void (cm) ? L: ??6.3 ? A P: ??5.5 ? TV: ??8.0 Vol (ml): ?145.1 Comment: ?Partially distended, norm al contour Procedure Note Magda Soliz MD - 07/28/2017Edmundo marrero of this note might be different from the original. Renal (Signed Final 07/28/2017 04:20 pm ) PATIENT INFO: ID #: [id number] : [birth year] (67 y rs) Name: SAUNDRA DHALIWAL Visit Date: 2017 03:54 pm PERFORMED BY: Performed By: Margret Lopez RDMS Attending: Magda Soliz MD Referred By: LISSY GUTIERREZ Location: [place] SERVICE(S) PROVIDED: URETRO - Retroperitoneal Complete - [facility] [id number] INDICATIONS: history of renal tumor COMPARISON: Ultrasound: 08/07/15. RIGHT KIDNEY: Size (cm) L: 9.6 Cortical Thickness: Normal Cortical Echogenicity: Normal Hydronephrosis: No sonographic evidence -------- Lesions: -------- # Date Location Description L AP TV (cm ) 1 08/07/15 Medial/ Angiomyolipo 1.1 1.1 1.2 Inferior ma # Date Location Description L AP TV (cm ) 1 07/11/14 Mid/Lower Angiomyolipo 1.7 1 .2 2.4 Pole ma 1 03/09/13 MID/Lower Angiomyolipo 2.3 1 .7 2.0 Pole ma Lateral 1 03/02/12 Lower pole Angiomyolipo 1.2 1.6 2.0 lateral ma 1 10/30/09 Lower pole Angiomyolipo 1.1 1.2 1.1 ma 2 07/28/17 Lower pole Angiomyolipo 1.2 [...] 0.5 ma LEFT KIDNEY: Size (cm) L: 11.2 Cortical Thickness: Normal Cortical Echogenicity: Normal Hydronephrosis: No sonographic evidence -------- Lesions: -------- # Date Location Description L AP TV (cm ) 1 07/28/17 Upper pole Angiomyolipo 1.6 1.0 1.5 ma 1 08/07/15 Upper pole Angiomyolipo 1.4 1.7 1.8 ma 1 07/11/14 Upper pole Angiomyolipo 1.8 1.6 1.6 ma 1 03/09/13 Upper pole Angiomyolipo 1.4 1.8 1.4 ma 1 03/02/12 Upper pole Angiomyolipo 1.6 1.2 1.4 ma 1 10/30/09 Upper pole Angiomyolipo 2.4 1.6 1.4 ma 2 07/28/17 Lower pole Angiomyolipo 2.5 [...] 1.4 ma URINARY BLADDER: Pre-void (cm) L: 6.3 AP: 5.5 TV: 8.0 Vol (ml): 145.1 Comment: Partially distended, normal co ntour IMPRESSION Small bilateral angiomyolipomas, accoun ting fordifferences in imaging technique, I do not feel these are changed significantlyin size compar ed to the patient's 2016 study. We could only see oneangiomyolipoma on the RIGHT and 2 on the LEFT today due to limited imaging ofthe RIGH T kidney from bowel gas. The one on the RIGHT may be slightly largerthan the given measurements as it blends with the extrarenal fat, I believe itremains under 2.5 cm however Magda Soliz MD Electronically Signed Final Report 07/28 04:20 pm Lissy Gutierrez MD IMG US GEN ORDERABLES documented in this encounter Visit Diagnoses Diagnosis Benign neoplasm of kidney, unspecified l aterality Benign neoplasm of kidney, unspecified l aterality documented in this encounter Care Teams Furnace Process Plant Operator Relationship Specialty Start Date End Date Fitz Jenkins MD PCP - General 04/10/10 07/27/17 [address] [facility] [place] [address] documented as of this encounter
--- OUTSIDE RECORDS SUMMARY | 2021-12-21 00:36 | XMS_ITS | Encounter Summary ---
:1950 Author Organization [facility] [place] [address] Care Team Providers Name Role Phone Ingrid Espinosa SUZANNE Primary Care Provider Reason for Visit Reason Comments Medication Refill Encounter Details Date Type Department Care Team Description 04/23/2018 Refill Neurology [place] [facility] [place] Donovan Mayer MD [facility] [place] [address] NEUROLOGY DEPT. [phone] [place], [place] [address] (Wo rk) Social History Tobacco [...] 03/06/2022 Office Visit Cardiology Lizeth Frazier MD [facility] [address] [place], [place] [address] (Wo rk) 03/18/2022 Office Visit Neurology Donovan Mayer MD [facility] ER NEUROLOGY DEPT. [place], [place] [address] (Wo rk) 04/24/2022 Appointment Hematology and Oncology 04/24/2022 Office Visit Hematology and Oncology Renea Navarro MD [facility] er HEMATOLOGY/ONCOL CLAUDE DEPT. [place], [place] [address] (Wo rk) documented as of this encounter Visit Diagnoses Not on filedocumented in this encounter Care Teams Assembly Department Supervisor Relationship Specialty Start Date End Date Ingrid Espinosa APRN PCP - General Internal Medicine 07/28/17 [address] [place] [address] documented as of this encounter
--- OUTSIDE RECORDS SUMMARY | 2021-12-21 00:36 | XMS_ITS | Encounter Summary ---
:1950 Author Organization [facility] [place] [address] Care Team Providers Name Role Phone Ingrid Espinosa Uriel PALACIOS Primary Care Provider Reason for Referral (Routine) - Specialty Diagnoses / Procedures Referred By Contact Refer red To Contact Diagnoses Genetic anomalies of leukocytes CLL (chronic lymphocytic leukemia) Virgilio Navarro MD Procedures Chromosome Analysis, Acquired [facility] HEMATOLOGY/[place] [address] Referral ID Status Reason Start Date Expiration Date Visits V isits Requested Authorized [id number] 10/14/2017 10/14/2018 1 1 Encounter Details Date Type Department Care Team Description 10/14/2017 Telephone Hematology and Oncology at [facility] MD [facility] [place] [phone] HEMATOLOGY/ONCOLOGY [phone] DEPT. [place], [place] [address] (Wo rk) Social History Tobacco [...] this encounter Miscellaneous Notes Telephone Encounter - Virgilio Navarro MD - 10/14/2017 9:11 AM EDT I called Ms. Dhaliwal to review her labs and left her a voice mail to call me back. Results for SAUNDRA DHALIWAL ( ) as of 10/14/2017 08:55 Ref. Range 10/09/2017 15:04 WBC Latest Ref Range: 4.0 - 9.5 x10(3)/mcL 20.6 (H) RBC Latest Ref Range: 4.00 - 5.21 x10(6)/mcL 4.51 Hemoglobin Latest Ref Range: 11.7 - 15.5 gm/dL 13.6 Hematocrit Latest Ref Range: 35.7 - 45.8 % 40.6 MCV Latest Ref Range: 82.6 - 94.4 fL 90.0 MCH Latest Ref Range: 27.1 - 32.0 pg 30.2 MCHC Latest Ref Range: 31.7 - 35.0 gm/dL 33.5 RDWSD Latest Ref Range: 37.0 - 46.0 fL 43.5 RDWCV Latest Ref Range: 11.5 - 14.1 % 13.2 Platelets Latest Ref Range: 145 - 357 x10(3)/mcL 161 MPV Latest Ref Range: 7.6 - 12.9 fL 10.1 nRBC % Auto Latest Units: % 0.1 nRBC Abs Auto Latest Ref Range: 0.000 - 0.000 x10(3)/mcL 0.030 (H) Neutr Abs (ANC) Latest Ref Range: 1.70 - 6.10 x10(3)/mcL 2.93 Neutrophils % Latest Units: % 14.2 Immature Gran % Latest Units: % 0.10 Lymphocytes % Latest Units: % 81.4 Monocytes % Latest Units: % 3.0 Eosinophils % Latest Units: % 0.9 Basophils % Latest Units: % 0.4 Betty Gran Abs Latest Ref Range: 0.00 - 0.04 x10(3)/mcL 0.03 Lymphocytes Abs Latest Ref Range: 0.9 - 3.2 x10(3)/mcL 16.8 (H) Monocyte Abs Latest Ref Range: 0.3 - 0.9 x10(3)/mcL 0.6 Eosinophils Abs Latest Ref Range: 0.0 - 0.4 x10(3)/mcL 0.2 Basophils Abs Latest Ref Range: 0.0 - 0.1 x10(3)/mcL 0.1 Plat Estimate Unknown Normal RBC Morphology Unknown Normal Smudge Cells Unknown Present Periph Smear Rev Unknown See Comment Immunophenotyping Flow Unknown See Comment Sodium Latest Ref Range: 135 - 145 mmol/L 143 Potassium Latest Ref Range: 3.5 - 5.0 mmol/L 4.2 Chloride Latest Ref Range: 98 - 107 mmol/L 105 CO2 Latest Ref Range: 22 - 31 mmol/L 26 Anion Gap Latest Ref Range: 5 - 15 mmol/L 12 BUN Latest Ref Range: 8 - 18 mg/dL 13 Creatinine Latest Ref Range: 0.70 - 1.20 mg/dL 0.69 (L) Estimated GFR Latest Ref Range: >=60 >60 Glucose Lvl Latest Ref Range: 65 - 199 mg/dL 101 Calcium Latest Ref Range: 8.5 - 10.5 mg/dL 9.3 Total Protein Latest Ref Range: 6.1 - 8.0 gm/dL 6.7 Albumin Latest Ref Range: 3.2 - 5.2 gm/dL 4.4 Total Bilirubin Latest Ref Range: 0.2 - 1.3 mg/dL 0.3 Alk Phos Latest Ref Range: 40 - 104 unit/L 74 AST Latest Ref Range: 0 - 30 unit/L 23 ALT Latest Ref Range: 0 - 30 unit/L 15 LDH Latest Ref Range: 110 - 220 unit/L 204 Total Prot Elec Latest Ref Range: 6.1 - 8.0 gm/dL 6.4 Albumin Elect Latest Ref Range: 3.60 - 6.00 gm/dL 4.36 Alpha1-Globulin Latest Ref Range: 0.10 - 0.30 gm/dL 0.15 Alpha2-Globulin Latest Ref Range: 0.40 - 0.90 gm/dL 0.64 Beta Globulin Latest Ref Range: 0.50 - 1.00 gm/dL 0.75 Gamma Globulin Latest Ref Range: 0.50 - 1.30 gm/dL 0.50 M1 Band Unknown None Detected Beta2 Microglob Latest Ref Range: 0.8 - 2.2 mg/L 2.2 IgG Latest Ref Range: 700 - 1600 mg/dL 612 (L) IgA Latest Ref Range: 70 - 400 mg/dL 152 IgM Latest Ref Range: 40 - 230 mg/dL 14 (L) A/P: # CLL: ZAP70 positive, CD38 positive (partial, 25%); LDH and B2MG: normal; Stage 1 We will continue with watch and wait approach. I will see her in 3 months for f/up. 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 Dhaliwal called back and I reviewed all the results and my impression and Recs with her. Virgilio Navarro MD Hematology Staff physician, Pager: [phone] 10/14/17 documented in this encounter Plan of Treatment Upcoming Encounters Date Type Specialty Care Team Description 03/06/2022 Office Visit Cardiology Lizeth Frazier MD [facility] [address] [place], [place] [address] (Amado quick) 03/18/2022 Office Visit Neurology Donovan Mayer MD [facility] NEUROLOGY DEPT. [place], [place] [address] (Amado quick) 04/24/2022 Appointment Hematology and Oncology 04/24/2022 Office Visit Hematology and Oncology Renea Navarro MD [facility] HEMATOLOGY/ONCOL OGY DEPT. [place], [place] [address] (Amado quick) Scheduled Orders Name Type Priority Associated Diagnoses Order S chedule CBC (with Diff) Lab Routine CLL (chronic Every 12 Wee ks for 4 lymphocytic leukemia) Occurr ences starting 10/14/2017 unti l 04/10/2019, 2 c ompleted Comprehensive metabolic Lab Routine CLL (chronic Ever y 12 Weeks for 4 panel (non-fasting) lymphocytic leukemia) Occurrences starting 10/14/2017 unti l 04/10/2019, 2 c ompleted Lactate Dehydrogenase Lab Routine CLL (chronic Every 12 Weeks for 4 lymphocytic leukemia) Occurr ences starting 10/14/2017 unti l 04/10/2019, 2 c ompleted documented as of this encounter Results Lactate Dehydrogenase (04/08/2018 10:30 AM EST) athologist Signature LDH 214 110 - 220 [facility] unit/L [facility] Specimen Anatomical Collection Method Collection Time Receive d Time (Source) Location / / Volume Laterality Blood specimen 04/08/2018 10:30 8 (specimen) AM EST 10:40 AM EST Resulting Agency Comment Spec In Lab Virgilio Navarro MD CHEMISTRY ORDERABLES Performing Organization Address City/State/[place] [address] Comprehensive metabolic panel (non-fasting) (04/08/2018 10:30 AM EST) athologist Signature Glucose Lvl 103 65 - 199 [facility] mg/dL [facility] Comment: Diabetes: >=200 mg/dL plus symp toms BUN 12 8 - 18 mg/dL [facility] Creatinine 0.83 0.70 - 1.20 mg/dL [facility] Sodium 144 135 - 145 mmol/L [facility] Potassium 3.8 3.5 - 5.0 mmol/L [facility] Comment: Please note: ??Patients with WBC >100,00 0 may have falsely elevated Potassium levels. ??For accurate Potassium quantif ication in these patients send serum separator tube (gold top) for subsequent determinations. ??Contact the Clinical Chemistry Laboratory if there are any qu estions. Chloride 106 98 - 107 mmol/L [facility] CO2 26 22 - 31 mmol/L [facility] Anion Gap 12 5 - 15 mmol/L [facility] Calcium 9.8 8.5 - 10.5 mg/dL [facility] Total Protein 6.4 6.1 - 8.0 gm/dL [facility] Albumin 3.9 3.2 - 5.2 gm/dL [facility] AST 30 0 - 30 unit/L [facility] ALT 25 0 - 30 unit/L [facility] Alk Phos 89 40 - 104 unit/L [facility] Total Bilirubin 0.4 0.2 - 1.3 mg/dL [facility] Estimated GFR 72 >=60 mL/min/1.73 m?? [facility] Comment: The eGFR was calculated using the CKD-EP I equation. As with all creatinine based estimates of kidney function, eGFR values calculated with the CKD-EPI equation are not accurate in patients wi th acute kidney failure, extremes of body mass or the acutely ill. http://[employer]/[facility] eGFR 83 >=60 mL/min/1.73 m?? [facility] Comment: The eGFR was calculated using the CKD-EP I equation. As with all creatinine based estimates of kidney function, eGFR values calculated with the CKD-EPI equation are not accurate in patients wi th acute kidney failure, extremes of body mass or the acutely ill. http://[employer]/[facility] Specimen Anatomical Collection Method Collection Time Receive d Time (Source) Location / / Volume Laterality Blood specimen 04/08/2018 10:30 8 (specimen) AM EST 10:40 AM EST Resulting Agency Comment Spec In Lab Virgilio Navarro MD CHEMISTRY ORDERABLES Performing Organization Address City/State/[place] [address] Lactate Dehydrogenase (01/14/2018 12:43 PM EDT) athologist Signature LDH 214 110 - 220 [facility] unit/L [facility] Specimen Anatomical Collection Method Collection Time Receive d Time (Source) Location / / Volume Laterality Blood specimen 01/14/2018 12:43 8 1:09 (specimen) PM EDT PM EDT Resulting Agency Comment Spec In Lab Virgilio Navarro MD CHEMISTRY ORDERABLES Performing Organization Address City/State/[place] [address] Comprehensive metabolic panel (non-fasting) (01/14/2018 12:43 PM EDT) P athologist Signature Glucose Lvl 81 65 - 199 [facility] mg/dL [facility] Comment: Diabetes: >=200 mg/dL plus symp toms BUN 16 8 - 18 mg/dL [facility] Creatinine 0.80 0.70 - 1.20 mg/dL [facility] Sodium 142 135 - 145 mmol/L [facility] Potassium 4.2 3.5 - 5.0 mmol/L [facility] Comment: Please note: ??Patients with WBC >100,00 0 may have falsely elevated Potassium levels. ??For accurate Potassium quantif ication in these patients send serum separator tube (gold top) for subsequent determinations. ??Contact the Clinical Chemistry Laboratory if there are any qu estions. Chloride 104 98 - 107 mmol/L [facility] CO2 26 22 - 31 mmol/L [facility] Anion Gap 12 5 - 15 mmol/L [facility] Calcium 10.2 8.5 - 10.5 mg/dL [facility] Total Protein 7.2 6.1 - 8.0 gm/dL [facility] Albumin 4.7 3.2 - 5.2 gm/dL [facility] AST 23 0 - 30 unit/L [facility] ALT 17 0 - 30 unit/L [facility] Alk Phos 78 40 - 104 unit/L [facility] Total Bilirubin 0.3 0.2 - 1.3 mg/dL [facility] Estimated GFR 76 >=60 mL/min/1.73 m?? [facility] Comment: The eGFR was calculated using the CKD-EP I equation. As with all creatinine based estimates of kidney function, eGFR values calculated with the CKD-EPI equation are not accurate in patients wi th acute kidney failure, extremes of body mass or the acutely ill. http://[employer]/[facility] eGFR 88 >=60 mL/min/1.73 m?? [facility] Comment: The eGFR was calculated using the CKD-EP I equation. As with all creatinine based estimates of kidney function, eGFR values calculated with the CKD-EPI equation are not accurate in patients wi th acute kidney failure, extremes of body mass or the acutely ill. http://[employer]/[facility] Specimen Anatomical Collection Method Collection Time Receive d Time (Source) Location / / Volume Laterality Blood specimen 01/14/2018 12:43 8 1:09 (specimen) PM EDT PM EDT Resulting Agency Comment Spec In Lab Virgilio Navarro MD CHEMISTRY ORDERABLES Performing Organization Address City/State/[place] [address] documented in this encounter Visit Diagnoses Diagnosis CLL (chronic lymphocytic leukemia) Chronic lymphoid leukemia, without menti on of having achieved remission Genetic anomalies of leukocytes Genetic anomalies of leukocytes documented in this encounter Care Teams Electroneurodiagnostic Technologist Relationship Specialty Start Date End Date Ingrid Espinosa APRN PCP - General Internal Medicine 07/28/17 [address] [place] [address] documented as of this encounter
--- OUTSIDE RECORDS SUMMARY | 2021-12-21 00:36 | XMS_ITS | Encounter Summary ---
:1950 Author Organization [facility] [place] [address] Care Team Providers Name Role Phone Ingrid Espinosa SUZANNE Primary Care Provider Encounter Details Date Type Department Care Team Description 10/15/2017 Office Visit Neurology at [facility] Donovan Mayer, Radiculopathy of lumbar diamante on; [facility] Radiculopathy of lumbosacral region Drive [facility] [address] NEUROLOGY DEPT. [phone] [place], [place] [address] Social History Tobacco Use Types [...] Sign Reading Time Taken Comments Blood Pressure 146/78 10/15/2017 3:13 PM EDT Pulse 75 10/15/2017 3:13 PM EDT Temperature - - Respiratory Rate - - Oxygen Saturation - - Inhaled Oxygen Concentration - - Weight 113.4 kg (250 lb) 10/15/2017 3:13 PM EDT reporte d Height 175.3 cm (5' 9) 10/15/2017 3:13 PM EDT reported Body Mass Index 36.92 10/15/2017 3:13 PM EDT documented in this encounter Patient Instructions Patient InstructionsDonovan Mayer MD - 10/15/2017 3:15 PM EDT I think you are doing quite well. Back problems appear improved following your epidural steroid injection. Your right leg appears little stronger Injections can be repeated for 6 month intervals if necessary Headaches appear to be stable. I would do nothing differently at this time. I do not think the new diagnosis of chronic lymphocytic leukemia will complicate the neurological picture in any way at this time. I would like to see you back in 6 months or sooner if necessary. Donovan Mayer MD Department [place] [address] Pager: [phone], #[phone] Email: [email or web address] documented in this encounter Progress Notes Donovan Mayer MD - 10/15/2017 3:15 PM EDT Neurology clinic note Chief Complaint: [...] the sprain and fracture on the right, improved but she felt she is getting more radicular pain and that the right leg is weaker. Her balance remained chronically somewhat bad, but she did quite well walking with a cane. When I saw her in 2017, I thought that her exam was somewhat worse and requested a follow-up MRI scan. This showed degenerative changes at multiple levels but no obviously approachable surgical lesion. There arepostsurgical changes at L5-S1. She was referred for an epidural steroid injection. She was noted to have lymphadenopathy as an incidental finding on her MRI scan Interval history: She is doing reasonably well. She is not complaining of frequent headaches. She gets bad ones less than once a month. These usually respond to Tylenol, occasionally she needs Percocet. 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 She was recently found to have gastric polyps, and is on antacid therapy. Incidentally, lumbar spine MRI scan shows enlarged inguinal and para-aortic lymph nodes. Unfortunately this has resulted in a diagnosis of chronic lymphocytic leukemia. This is being followed conservatively here in hematology. 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 Her lumbar spine problems were addressed with a lumbar epidural steroid injection which has given significant relief of the right sided lumbar radicular symptoms. The right leg feels stronger. PMH: Patient Active Problem List Diagnosis ??? [...] tibial DVT 2005. i. Repeat U/S OSH 2007 normal. 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 Physical Exam: BP 146/78 (BP Location (NBP): Left arm, Patient Position: Sitting, BP Cuff Sizes: Large Adult (32-43cm)) Pulse 75 Ht 175.3 cm (5' 9) Comment: reported Wt 113.4 kg (250 lb) Comment: reported BMI 36.92 kg/m2 Head, eyes, ears, nose, and throat were normal. Heart and lungs were normal. There are some arthritic deformities of the right ankle and foot She is mentally intact and speech was normal Cranial nerves were normal. Strength was essentially normal, significant weakness of dorsiflexion of the big toe on the right isnot really have baseline, and definite weakness of eversion of the right foot noted at her last visit appeared somewhat improved today. Reflexes were 2+, except noteworthy for depressed [...] moderate degenerative changes only. Medications: Current Outpatient Prescriptions Medication Sig Dispense Refill ??? diphenhydrAMINE (BENADRYL) 50 mg Capsule Take 50 mg by mouth nightly. ??? cholecalciferol, Vitamin D3, 1,000 unit Tablet Take 1,000 Units by mouth daily. ??? mometasone (NASONEX) 50 mcg/actuation [place], Non-Aerosol 2 sprays by Nasal route as needed. ??? meloxicam (MOBIC) 15 mg Tablet Take 15 mg by mouth daily. 0 ??? Calcium 500 mg Tab Take 2 tablets by mouth daily. ??? nystatin (MYCOSTATIN) powder Apply topically 3 times daily as needed. ??? fluticasone (FLONASE) 50 mcg/actuation nasal spray 1 spray 2 times daily as needed. ??? loratadine (CLARITIN) 10 mg tablet Take 10 mg by mouth daily as needed. ??? OXYcodone-acetaminophen (PERCOCET) 5-325 mg per tablet Take 1 tablet by mouth 2 times daily as needed. 60 tablet 0 ??? ketoconazole (NIZORAL) 2 % cream Apply [...] SYSTEMS (HORIZON NASAL CPAP SYSTEM MISC) by [facility].(Non- Drug; Combo Route) route nightly. ??? TENS UNITS MISC by [facility].(Non-Drug; Combo Route) route. Tens machine Daily for back and leg ??? pantoprazole (PROTONIX) 40 mg tablet Take 40 mg by mouth daily. ??? simvastatin (ZOCOR) 20 mg tablet Take 20 mg by mouth nightly. ??? levothyroxine (SYNTHROID) 25 mcg tablet Take 25 mcg by mouth daily. ??? valsartan (DIOVAN) 160 mg tablet Take 160 mg by mouth daily. ??? ranitidine (ZANTAC) 300 mg Tablet Take 300 mg by mouth nightly. 0 ??? gabapentin (NEURONTIN) 300 mg Capsule Take 1 capsule by mouth nightly. 90 capsule 3 No current facility-administered medications for this visit. [...] epidural steroid injection it is better. At presentI would do nothing more. If symptoms worsen, then I think we should give consideration to electricalstudies. Further plans would depend on the results of those studies. Some of the pain in her right foot is, I believe, musculoskeletal and related to the fracture and sprain. She has milder symptoms on the left. I have rewritten the prescription for her brace on the right, and the new one seems to be working well. 2. She has chronic headaches that are doing fairly well. I think CPAP has helped. She can continue to use Tylenol as needed. 3. For most of her chronic pain complaints she is using tylenol and meloxicam. She has Percocet to use used as needed for bad days, not more than 2 days in a week, so as not to produce analgesic rebound. For prophylaxis she continues to use duloxetine and gabapentin which I think is reasonable. I'm increasing the dose of gabapentin from 100 mg daily at bedtime to 300 mg daily at bedtime 4. Other medical problems appear to be stable at present. I will see her back in 6 months or sooner if necessary. Thank you for this consultation. Donovan Mayer MD [place] [address] Pager: [phone], #[phone] Email: [email or web address] cc: Ingrid Quinn documented in this encounter Plan of Treatment Upcoming Encounters Date Type Specialty Care Team Description 03/06/2022 Office Visit Cardiology Lizeth Frazier MD [facility] [address] [place] [address] (Amado quick) 03/18/2022 Office Visit Neurology Donovan Mayer MD [facility] NEUROLOGY DEPT. [place], [place] [address] (Wo rk) 04/24/2022 Appointment Hematology and Oncology 04/24/2022 Office Visit Hematology and Oncology Renea Navarro MD [facility] [place]OLOGY[place] [address] (Wo rk) documented as of this encounter Visit Diagnoses Diagnosis Radiculopathy of lumbar region Thoracic or lumbosacral neuritis or radi culitis, unspecified Radiculopathy of lumbosacral region Thoracic or lumbosacral neuritis or radi culitis, unspecified documented in this encounter Care Teams Park Services Specialist Relationship Specialty Start Date End Date Ingrid Espinosa APRN PCP - General Internal Medicine 07/28/17 [address] [place] [address] documented as of this encounter
--- OUTSIDE RECORDS SUMMARY | 2021-12-21 00:36 | XMS_ITS | Encounter Summary ---
:1950 Author Organization [facility] Address [address] [address] Care Team Providers Name Role Phone Francisca, Ingrid Uriel PALACIOS Primary Care Provider Encounter Details Date Type Department Care Team Description 07/28/2017 Hospital Encounter Ultrasound at [facility] Lissy Gutierrez, Benign neoplasm of [facility] kidney, unspecified [address] [place] [address] UROLOGY [phone] [place] [address] Social History Tobacco Use Types Packs/Day Years [...] Sig Dispensed Refills Start Date End Date cholecalciferol, Vitamin Take 1,000 Units by 0 [...] 0 tablet mouth daily. OXYGEN-AIR DELIVERY by [facility].(Non-Drug; 0 SYSTEMS (HORIZON NASAL Combo Route) route CPAP SYSTEM MIS) nightly. levothyroxine Take 37.5 mcg by 0 (SYNTHROID) 25 mcg mouth daily. tablet gabapentin (NEURONTIN) Take 1 capsule by 90 capsule 3 201609/21/2017 300 mg Capsule mouth nightly. diphenhydrAMINE Take 50 mg by mouth 0 04/08/2018 (BENADRYL) 50 mg Capsule nightly. mometasone (NASONEX) 50 2 sprays by Nasal 0 04/08/2018 mcg/actuation [place], route daily. Non-Aerosol meloxicam (MOBIC) 15 mg Take 15 mg by mouth 0 04/16/2018 Tablet daily. fluticasone (FLONASE) 50 1 spray 2 times 0 04/08/2018 mcg/actuation nasal daily as needed. spray loratadine (CLARITIN) 10 Take 10 mg by mouth 0 10/15/2017 mg tablet daily as needed. OXYcodone-acetaminophen Take 1 tablet by 60 tablet 0 201110/15/2017 (PERCOCET) 5-325 mg per mouth 2 times daily tablet as needed. DULoxetine (CYMBALTA) 60 Take 60 mg by mouth 0 01/13/2019 mg capsuleIndications: daily. Indications: fibromyalgia Fibromyalgia TENS UNITS MISC by [facility].(Non-Drug; 0 0 01/13/2019 Combo Route) route. Tens machine Daily for back and leg pantoprazole (PROTONIX) Take 40 mg by mouth 0 01/13/2019 40 mg tablet daily. simvastatin (ZOCOR) 20 Take 20 mg by mouth 0 01/13/2019 mg tablet nightly. valsartan (DIOVAN) 160 Take 160 mg by mouth 0 04/08/2018 mg tablet daily. documented as of this encounter Plan of Treatment Upcoming Encounters Date Type Specialty Care Team Description 03/06/2022 Office Visit Cardiology Lizeth Frazier MD [facility] [place], [place] [address] (Wo rk) 03/18/2022 Office Visit Neurology Donovan Mayer MD [facility] NEUROLOGY DEPT. [place], [place] [address] (Wo rk) 04/24/2022 Appointment Hematology and Oncology 04/24/2022 Office Visit Hematology and Oncology Renea Navarro MD [facility] HEMATOLOGY/ONCOL OGY DEPT. [place], [place] [address] (Wo rk) documented as of this encounter Procedures Procedure Name Priority Date/Time Associated Comments Diagnosis US RETROPERITONEAL Routine 07/28/2017 3:54 Benign neoplasm of Results for this COMPLETE PM EDT kidney, unspecified procedur e are in laterality the results section. documented in this encounter Results US Retroperitoneal Complete (07/28/2017 [...] 04:20 pm) PATIENT INFO: ID #: ? [id number] ?: ??[birth year] (67 yrs) Name: ? SAUNDRA DHALIWAL ? Visit Date: 07/28/2017 03:54 pm PERFORMED BY: Performed By: ? Chris Lopez RDMS Attending: ?Martínez WHITLEY, Magda Rosario . Referred By: ?LISSY Kade [facility] Location: ? [facility] SERVICE(S) PROVIDED: ??URETRO - Retroperitoneal Complete - I [id number] ? [id number] INDICATIONS: ??history of renal tumor COMPARISON: Ultrasound: [...] ? Pole ? ma ? Lateral ??1 ?03/02/12 ?Lower pole ?? An giomyolipo ? 1.2 ?1.6 ?2.0 ? lateral ?ma ??1 ?06/14/10 ?Lower pole ?? An giomyolipo ? 1.1 ?1.2 ?1.1 ?ma ??2 ?18 ?Lower pole ?? An giomyolipo ? 1.2 ?1.2 ?1.0 ?ma ??2 ?08/06/16 ?Mid / ?Angiomyolipo ? 0.5 ?0.5 ?0.3 ? Inferior ? ma ??2 ?07/11/15 ?Mid pole ? A ngiomyolipo ? 0.7 ?0.5 ?5.0 ?ma ??2 ?03/09/13 ?Lower pole ?? An giomyolipo ? 0.5 ?0.7 ?0.6 ?ma ??2 ?03/02/12 ?Lower pole ?? An giomyolipo ? 0.4 ?0.2 ?0.5 ?ma ??2 ?10/30/ ?Lower pole ?? An giomyolipo ? 0.4 [...] giomyolipo ? 1.4 ?1.7 ?1.8 ?ma ??1 ?02/23/15 ?Upper pole ?? An giomyolipo ? 1.8 ?1.6 ?1.6 ?ma ??1 ?10//13 ?Upper pole ?? An giomyolipo ? 1.4 ?1.8 ?1.4 ?ma ??1 ?03/02/12 ?Upper pole ?? An giomyolipo ? 1.6 ?1.2 ?1.4 ?ma ??1 ?06/14/10 ?Upper pole ?? An giomyolipo ? 2.4 ?1.6 ?1.4 ?ma ??2 ?03//18 ?Lower pole ?? An giomyolipo ? 2.5 ?1.3 ?1.4 ?ma ??2 ?08/06/16 ?Lower pole ?? An giomyolipo ? 1.8 ?1.6 ?1.5 ?ma ??2 ?07/11/14 ?Lower pole ?? An giomyolipo ? 1.7 ?1.5 ?1.6 ?ma ??2 ?03/09/13 ?Lower pole ?? An giomyolipo ? 1.9 [...] 04:20 pm ) PATIENT INFO: ID #: [id number] : [birth year] (67 y rs) Name: SAUNDRA DHALIWAL Visit Date: 2017 03:54 pm PERFORMED BY: Performed By: Margret Lopez RDMS Attending: Magda Soliz MD Referred By: LISSY GUTIERREZ Location: [facility] SERVICE(S) PROVIDED: URETRO - Retroperitoneal Complete - [facility] [id number] INDICATIONS: history of renal tumor COMPARISON: Ultrasound: [...] aterality documented in this encounter Care Teams Hand Surgeon Relationship Specialty Start Date End Date Ingrid Espinosa APRN PCP - General Internal Medicine 07/28/17 [address] [place] [address] documented as of this encounter
--- OUTSIDE RECORDS SUMMARY | 2021-12-21 00:36 | XMS_ITS | Encounter Summary ---
:1950 Author Organization [facility] [place] [address] Care Team Providers Name Role Phone Ingrid Espinosa APRN Primary Care Provider Reason for Visit Reason Comments Medication Refill Encounter Details Date Type Department Care Team Description 09/21/2017 Refill Neurology at [facility] Donovan Mayer MD [facility] [place] [address] NEUROLOGY DEPT. [phone] [place], [place] [address] (Wo rk) Social History Tobacco [...] Cardiology Lizeth Frazier MD [facility] [address] [place] [address] (Wo rk) 03/18/2022 Office Visit Neurology Donovan Mayer MD [facility] ER NEUROLOGY DEPT. [place], [place] [address] (Wo rk) 04/24/2022 Appointment Hematology and Oncology 04/24/2022 Office Visit Hematology and Oncology Renea Navarro MD [facility] HEMATOLOGY/ONCOL OGY DEPT. [place], [place] [address] (Wo rk) documented as of this encounter Visit Diagnoses Not on filedocumented in this encounter Care Teams Ware Tester Relationship Specialty Start Date End Date Ingrid Espinosa APRN PCP - General Internal Medicine 07/28/17 [address] [place] [address] documented as of this encounter
--- OUTSIDE RECORDS SUMMARY | 2021-12-21 00:36 | XMS_ITS | Encounter Summary ---
:1950 Author Organization [facility] [place] [address] Care Team Providers Name Role Phone Guillermina Espinosacresencio Trevino APRN Primary Care Provider Reason for Visit Reason Onset Date Comments Pre Procedure Call 04/16/2018 Encounter Details Date Type Department Care Team Description 04/16/2018 Telephone Dermatology at [facility] Noris Tay, Pre Procedure Call [address] [place] [address] Social History Tobacco Use Types Packs/Day Years [...] this encounter Miscellaneous Notes Telephone Encounter - Noris Tay LPN - 04/16/2018 8:21 AM EST Pre-Op excision phone call Date of Call: 04/16/18 Surgical procedure to be done: Excision surgery on 04/28/18 Surgical Pathology: [id number] Spoke with Saundra by phone to review the following. Review of allergies and medications: instructed to take all medications prior to procedure Does not take any blood thinners. Does not have any allergies to Lidocaine or epinephrine. Does not take antibiotics before dental procedures. Does have any cardiac issues, heart murmurs or valve replacements. Does not have a pacemaker or defibrillator. Has not had a total joint replacement with in the past 2 years. Recommend that she be accompanied by someone who can drive her home if needed. Discussed length of procedure and time variables. Post operative instructions reviewed including physical limitations after procedure. Phone number given should any questions or concerns arise before or after the procedure. Saundra states that she understands all of the above. Noris Tay LPN documented in this encounter Plan of Treatment Upcoming Encounters Date Type Specialty Care Team Description 03/06/2022 Office Visit Cardiology Lizeth Frazier MD [facility] [address] [place], [place] [address] (Wo rk) 03/18/2022 Office Visit Neurology Donovan Mayer MD [facility] NEUROLOGY DEPT. [place], [place] [address] (Wo rk) 04/24/2022 Appointment Hematology and Oncology 04/24/2022 Office Visit Hematology and Oncology Renea Navarro MD [facility] HEMATOLOGY/ONCOL [place] DEPT. [place], [place] [address] (Wo rk) documented as of this encounter Visit Diagnoses Not on filedocumented in this encounter Care Teams Levelman Relationship Specialty Start Date End Date Ingrid Espinosa APRN PCP - General Internal Medicine 07/28/17 [facility] [place] [address] documented as of this encounter
--- OUTSIDE RECORDS SUMMARY | 2021-12-21 00:36 | XMS_ITS | Encounter Summary ---
:1950 Author Organization [facility] [place] [address] Care Team Providers Name Role Phone Fitz Jenkins MD Primary Care Provider [phone] Reason for Visit Reason Onset Date Comments Pre Procedure Call 06/02/2017 Encounter Details Date Type Department Care Team Description 06/02/2017 Telephone Pain Management at [facility] [place] [address] Social History Tobacco Use Types Packs/Day [...] this encounter Miscellaneous Notes Telephone Encounter - [facility]u [facility] - 06/02/2017 10:47 AM EST Saundra Blanton :1950 Message left: I left a message on answering machine Ms. Blanton at 10:47 AM regarding her upcoming Right transforaminal injection with Dr. Alice Fishman MD. Message included the followin. Patient instructed to arrive at 11:30AM on 06/04/[address] flusher driver. 2. Following instructions left in the message: - Bring Updated list of medications including dosage and reason for taking. - Call the Pain Clinic Nurse at for: ~Procedure instructions. ~If you are taking antibiotics. ~If you have any signs or symptoms of infection, cold or flu. ~If you have any skin breakdown (rashes, cysts, or abscess.) ~If you are taking anticoagulants / blood thinners (Plavix, Pletal, Lovenox, Coumadin, etc). ~If you had any steroid injections anywhere in your body within the last two weeks? Pain and Anti-anxiety Medications: 1. Nerve Block Procedure Patients: Patient was instructed NOT to take their pain medications on the day of the procedure and anti-anxiety medications are part of their daily medication regiment; they can and should continue taking that medication. 2. All Other Procedure Patients: The patient was instructed that if they take daily pain or anti-anxiety medications, they can and should continue taking on the day of the procedure. JENAE Durbin documented in this encounter Plan of Treatment Upcoming Encounters Date Type Specialty Care Team Description 03/06/2022 Office Visit Cardiology Lizeth Frazier MD [facility] [address] [place] [address] (Amado quick) 03/18/2022 Office Visit Neurology Donovan Mayer MD [facility] NEUROLOGY DEPT. [place], [place] [address] (Amado quick) 04/24/2022 Appointment Hematology and Oncology 04/24/2022 Office Visit Hematology and Oncology Renea Navarro MD [facility] HEMATOLOGY/ONCOL CLAUDE DEPT. [place], [place] [address] (Amado quick) documented as of this encounter Visit Diagnoses Not on filedocumented in this encounter Care Teams Chief Nurse Anesthetist Relationship Specialty Start Date End Date Fitz Jenkins MD PCP - General 04/10/10 07/27/[address] [place] [address] documented as of this encounter
--- OUTSIDE RECORDS SUMMARY | 2021-12-21 00:36 | XMS_ITS | Encounter Summary ---
:1950 [address] [facility] [place] [address] Care Team Providers Name Role Phone Francisca, Ingrid Uriel PALACIOS Primary Care Provider Reason for Visit Reason Comments Follow-up Encounter Details Date Type Department Care Team Description 07/28/2017 Office Visit Urology at [facility] Coleman Du, Angiomyolipoma of both [facility] MD kidneys [facility] [id number] UROLOGY [phone] [place], [place] [address] Social History Tobacco Use Types [...] Sign Reading Time Taken Comments Blood Pressure 128/69 07/28/2017 4:26 PM EDT Pulse 70 07/28/2017 4:26 PM EDT Temperature 36.4 ??C (97.6 ??F) 07/28/2017 4:26 PM EDT Respiratory Rate - - Oxygen Saturation 95% 07/28/2017 4:26 PM EDT Inhaled Oxygen Concentration - - Weight - - Height - - Body Mass Index - - documented in this encounter Progress Notes Lacho Alexandre MD - 07/28/2017 3:40 PM EDT Patient Name: Saundra Blanton MR: [id number] Date of Service: 08/07/15 Primary Care Provider: Elmer Dunn MD [phone] Reason for Visit: Saundra Blanton is a [...] AML, however new bilateral non-obstructing kidney stones. Since we last saw her she got a steroid injection for her back pain, otherwise no changes. No flank pain. No hematuria, no change in urinary symptoms. She feels she empties ok and is not bothered by her bladder. No UTIs. She has back pain and walks with a cane, she also has an ankle brace-stable. Appetite stable, no weight change. No new back or bone pain Change in PMhx/Pshx since last visit. Back pain with ongoing therapy Patient Active Problem List Diagnosis Code ??? [...] Otherwise grossly normal Labs: None X-rays: 08/22 [facility] U/S AMLS visualised and no change in size as compared with 04/21 CT 10/23 [facility] U/S Slightly larger 1-2mm 10/24 [facility] U/S minimal change all <2cm 10/25 [facility] U/S minimal change all <2cm 10/2009 [facility] U/S minimal change all <2cm 02/27: US: [...] appears normal. 06/2014 US Impression Impression Ultrasound 07/2017 Impression: Small bilateral angiomyolipomas, accounting for differences in imaging technique, I do not feel these are changed significantlyin size compared to the patient's 2016 study. We could only see oneangiomyolipoma on the RIGHT and 2 on the LEFT today due to limited imaging ofthe RIGHT kidney from bowel gas. The one on the RIGHT may be slightly largerthan the given measurements as it blends with the extrarenal fat, I believe itremains under 2.5 cm however Ultrasound - Retroperitoneal Complete - Summary Bilateral [...] ??3.?? Unremarkable bladder for degree of distention. 10/2009 PVR by bladder scan = 0 Labs 06/2014: U/A Negative 07/2015: rbc-UA sent Cystoscopy 03/2013: Normal Cytology 03/2013: Negative Impression: Bilateral AML's, asymptomatic. Still all small in size and generally stable Bilateral non-obstructing renal stones on CT Plan: Requested CT images and report to be sent from [facility] Renal U/S in 24 months to follow AML's Imaging reviewed with Dr. Du today as well as plan of care Attending Addendum I have seen the patient and reviewed the history and examination. I agree with the details as written. The assessment and plan were formulated in discussion with me and I agree with them as documented. I would add the following: Ct reviewed. No change in recommendation Coleman Du documented in this encounter Plan of Treatment Upcoming Encounters Date Type Specialty Care Team Description 03/06/2022 Office Visit Cardiology Lizeth Frazier MD [facility] [address] [place] [address] (Wo rk) 03/18/2022 Office Visit Neurology Donovan Mayer MD [facility] [place], [place] [address] (Wo rk) 04/24/2022 Appointment Hematology and Oncology 04/24/2022 Office Visit Hematology and Oncology Renea Navarro MD [facility] HEMATOLOGY/[facility] DEPT. [place], [place] [address] (Wo rk) documented as of this encounter Visit Diagnoses Diagnosis Angiomyolipoma of both kidneys documented in this encounter Care Teams Vertica Architect Relationship Specialty Start Date End Date Francisca, Ingrid A, BLOCK SPLITTER OPERATOR PCP - General Internal Medicine 07/28/[address] [place] [address] documented as of this encounter
--- OUTSIDE RECORDS SUMMARY | 2021-12-21 00:36 | XMS_ITS | Encounter Summary ---
:1950 Author Organization [facility] [place] [address] Care Team Providers Name Role Phone Fitz Jenkins MD Primary Care Provider [phone] Reason for Visit Reason Comments Pain Management Consultation (Routine) - Closed Specialty Diagnoses / Procedures Referred By Contact Refer red To Contact Pain Management Diagnoses Radiculopathy of lumbar region Donovan Mayer MD [facility] [address] [place] [address] [place] [address] [place] [address] Fax: Referral ID Status Reason Start Date Expiration Date Visits V isits Requested Authorized [id number] Closed Consult, 03/04/2017 03/04/2018 1 1 Test & Treat Encounter Details Date Type Department Care Team Description 04/24/2017 Office Visit Pain Management at [facility] stenosis of lumbar region, unspecified whether neurogenic claudication present; Emily WHITLEY Foraminal stenosis of lumbar region; [facility]ly [facility], [facility] Lum bosacral spondylosis without myelopathy; Almaz VALERA S/P lumbar discectomy [place], [place] [facility] [address] [place] [address] [phone] Social History Tobacco Use Types Packs/Day Years [...] Sign Reading Time Taken Comments Blood Pressure 155/82 04/24/2017 1:28 PM EST Pulse 80 04/24/2017 1:28 PM EST Temperature - - Respiratory Rate - - Oxygen Saturation 96% 04/24/2017 1:28 PM EST Inhaled Oxygen Concentration - - Weight 114.8 kg (253 lb) 04/24/2017 1:28 PM EST Height 175.3 cm (5' 9) 04/24/2017 1:28 PM EST Body Mass Index 37.36 04/24/2017 1:28 PM EST documented in this encounter Progress Notes Alice Fishman MD - 04/24/2017 1:45 PM EST Images from the original note were not included. PAIN CLINIC CONSULTATION Date of Consultation: April 24, 2017 I am seeing Ms. Blanton at the request of Donovan Mayer for my opinion and recommendations regarding back pain. Chief Complaint: Back pain, bilateral foot pain -right > left HPI: Subjective Saundra Omar Blanton is a 67 y.o. female with a h/o carcinoid tumor, obesity, HTN, renal tumors, h/o thrombosis after (not anticoagulated),s/p lumbar discectomy 1975 who presents today for evaluation of Back pain, bilateral foot pain -right > left The history is obtained from the patient, and I have reviewed medical records provided by the referring physician and located in the electronic medical record to fill in gaps in the patient's recollection of events, treatments and outcomes. The patient has had symptoms for since 2001 . The patient was at horse show sitting in a chair and she started to have low back and right LE pain. By the next morning she was unable to bear weight on the right LE. The patient was found to have disc herniations. She underwent PT and had epidural steroid injections in [place]. She had improvement but has had residual pain over the years. The last epidural was in 2002. The pain has had intermittent exacerbations of pain . The patient has been evaluated by Dr. Mayer and he referred the patient to the Pain Clinic for further evaluation. Epidural steroid injections in the past did help the LE pain. The patient has not had her ankles or feet evaluated by an Orthopedist. The patient wears a brace on the right due to drop foot that she had since 2001. The drop foot has improved slightly over the years. The patient uses a walking stick to ambulate. LOCATION: Across low back. ASSOCIATED SYMPTOMS: No symptoms in the thigh. Primarily associated symptom right greater than left foot pain (dorsum), right lateral ankle. The patient is not sure if there is an association between the foot pain and the back pain. The LE pain is worse than the back pain. PAIN DESCRIPTION: Aching,burning, sharp or tingling PRESENT: all of the time. PAIN INCREASED BY:walking, standing, stress, going up stairs PAIN DECREASED BY: elevating the leg, salonpas on the ankle and back, heat PAIN LEVEL 04/24/2017 AT REST 5 WORST over past week 5 BEST over past week 3 AVERAGE over past week 4 TREATMENTS/INTERVENTIONS CURRENT DATE HELPFUL? TRIALED DATE HELPFUL? NOT TRIALED PT x last time around 2005 Pool tx x [phone] yes massage intermittently yes TENS PROCEDURES/SURGERY TYPE DATE HELPFUL? NOT TRIALED Epidural steroid injections Right L4-L5 transforaminal epidural steroid injection. 12/09/2005 yes Right L4-5 transforaminal epidural steroid injection under fluoroscopic guidance. 12/18/2004 yes LESI L4-5 04/17/04 EVALUATIONS: TESTING: MEDICATIONS: CURRENT HELPFUL? TRIALED HELPFUL? NOT TRIALED NSAID Sulfa allergy meloxicam Yes OPIOIDS Hydrocodone allergy, codeine oxycodone 5/325 (not on PDMP, old rx, rare use) Yes OTHER Tylenol neurontin 300 mg HS Yes Yes for sleep topamax No ANTIDEPRESSANT cymbalta-for depression and pain Yes Elavil Unknown MUSCLE RELAXANT IMAGING: ACTIVITY LEVEL: -limited by pain -normal activities of daily living -walks 10-15 minutes per day. She has not tried to increase this. Has tried pool therapy and does have exercises. She enjoys being in the pool; she has not been doing the exercises. -The patient uses a walking stick to ambulate. Working Social Hx: Lives alone and her 2 cats Treatment Goals: -walk further Mental Health: OPIOID RISK ASSESSMENT OPIOID RISK TOOL Female Male 1. Family history of Substance Abuse Alcohol [] 1 [] 3 Illegal Drugs [] 2 [] 3 Prescription Drugs [] 4 [] 4 2. Personal History of Substance Abuse Alcohol [] 3 [] 3 Illegal Drugs [] 4 [] 4 Prescription Drugs [] 5 [] 5 3. Age (gary box if 16-45) [] 1 [] 1 4. History of Preadolescent Sexual Abuse [] 3 [] 0 5. Psychological Disease Attention Deficit Disorder, Obsessive Compulsive D/o, Bipolar, Schizophrenia [] 2 [] 2 Depression [x] 1 [] 1 TOTAL: 1 Comments about ORT in relation to this patient: Opioid Risk Category: low risk 0-3 Total Score Risk Category: 0-3 = Low Risk 4-7 = Moderate Risk > 8 = High Risk Suicide/Homicide Risks Suicidal ideations No Suicidal plans No Homicidal ideations No Previous prescribers (Also see Patient Care Team section) Medical records reviewed? Worrisome findings? Other significant history History of DUI or DWI? No History of incarceration? No History of discharge from another pain provider? No History of an inconsistent Urine Drug Screen? No Current use of a benzodiazepine? No Current use of other INFORMATION SYSTEMS OPERATOR depressant? No Current diagnosis of Obstructive Seep Apnea? {Yes CPAP use: No Repeated visits to acute care facilities of other care facilities seeking opioids? No Current ? No Repeated visits to urgent care facilities and/or emergency departments seeking opioids? No Evidence or risk of significant adverse events including falls or fractures? No Are you now or in past received methadone or suboxone (buprenorphine) from a clinic? No Ever participated in drug or alcohol rehabilitation program? No Share your pain medications or accept medications from family/friends? No Storage of opioids-locked? Yes ETOH use/ h/o abuse Yes, rare/No Illicit drug use/abuse No MJ use No [place] & [place] Prescription Drug Monitoring Program data reviewed? Yes 04/24/2017 Inconsistencies? No Urine drug screen ordered? No Adult Chronic Opioid Consent and Agreement signed? No Opioids prescribed? No Naloxone rx offered? No Prescribed? (instructions given) No (No) myD-H Pain 04/24/2017 VR12 - Physical Summary Component 27.77 VR12 - Mental Component Summary 60.21 Audit C 1 (Low Risk) MODEMS Expectation 35 Family History of Substance Abuse (Female) 0 Personal History of Substance Abuse(Female) 0 Age 0 History of Preadolescent sexual abuse(Female) 0 Psychological Disease 1 ORT Total Scores (Female) 1 PAST MEDICAL HISTORY: Past Medical History: Diagnosis Date ??? 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 Benign renal tumor 10/19/2010 ??? Carcinoid tumor 10/19/2010 ??? Depression 10/19/2010 ??? Elevated cholesterol 10/19/2010 ??? Gastric polyp ??? GERD (gastroesophageal reflux disease) ??? Hypertension ??? Lumbar radiculopathy 10/19/2010 ??? Migraine 10/19/2010 ??? Obesity 10/19/2010 ??? Sleep apnea 10/19/2010 PAST SURGICAL HISTORY: Past Surgical History: Procedure Laterality Date ??? CATARACT REMOVAL WITH IMPLANT Bilateral ??? SECTION 1986 ??? CHOLECYSTECTOMY 2006 ??? CREATED BY INTERFACE Entered not Verified Procedure Date: 05/22/2010 ??? CREATED BY INTERFACE No History of Operative Procedures Procedure Date: 05/22/2010 ??? ENDOSCOPY, UPPER GI, SIMPLE PRIMARY EXAM ??? LUMBAR SPINE SURGERY 1976 discectomy , [facility] ??? TOE SURGERY right ??? UPPER GASTROINTESTINAL ENDOSCOPY removal of carcinoid ??? WISDOM TOOTH EXTRACTION ALLERGIES: Latex; Sulfa (sulfonamide antibiotics); Adhesive tape-silicones; Codeine; Gluten; Hydrocodone-acetaminophen; Penicillins; and Unclassified drug MEDICATIONS: Medications 04/24/17 1400 Medication Sig Taking? gabapentin (NEURONTIN) 300 mg Capsule Take 1 capsule by mouth nightly. Yes diphenhydrAMINE (BENADRYL) 50 mg Capsule Take 50 mg by mouth nightly. Yes cholecalciferol, Vitamin D3, 1,000 unit Tablet Take 1,000 Units by mouth daily. Yes mometasone (NASONEX) 50 mcg/actuation Cotton, Non-Aerosol 2 sprays by Nasal route as needed. Yes meloxicam (MOBIC) 15 mg Tablet Take 15 mg by mouth daily. Yes Calcium 500 mg Tab Take 2 tablets by mouth daily. Yes nystatin (MYCOSTATIN) powder Apply topically 3 times daily as needed. Yes fluticasone (FLONASE) 50 mcg/actuation nasal spray 1 spray 2 times daily as needed. Yes loratadine (CLARITIN) 10 mg tablet Take 10 mg by mouth daily as needed. Yes OXYcodone-acetaminophen (PERCOCET) 5-325 mg per tablet Take 1 tablet by mouth 2 times daily as needed. Yes ketoconazole (NIZORAL) 2 % cream Apply topically. Mixing with Desonide, under breasts, skin folds onabdomen 2 times daily for 2 weeks, then as needed for maintenance Yes desonide (DESOWEN) 0.05 % cream Apply topically. Mix with Ketoconazole, under breasts, skin folds onabdomen 2 times daily for 2 weeks, then as needed for maintenance Yes acetaminophen (TYLENOL) 500 mg tablet Take 1,000 mg by mouth 2 times daily. Yes DULoxetine (CYMBALTA) 60 mg capsule Take 60 mg by mouth daily. Indications: Fibromyalgia Yes loperamide (IMMODIUM) 2 mg tablet Take 2 mg by mouth 4 times daily as needed. Yes multivitamin (THERAGRAN) tablet Take 1 tablet by mouth daily. Yes OXYGEN-AIR DELIVERY SYSTEMS (HORIZON NASAL CPAP SYSTEM MISC) by [facility]Non-Drug; Combo Route) route nightly. Yes TENS UNITS MISC by [facility]Non-Drug; Combo Route) route. Tens machine Daily for back and leg Yes pantoprazole (PROTONIX) 40 mg tablet Take 40 mg by mouth daily. Yes simvastatin (ZOCOR) 20 mg tablet Take 20 mg by mouth nightly. Yes levothyroxine (SYNTHROID) 25 mcg tablet Take 25 mcg by mouth daily. Yes valsartan (DIOVAN) 160 mg tablet Take 160 mg by mouth daily. Yes FAMILY HISTORY: Family History Problem Relation Age of Onset ??? Heart Disease Mother ??? Arthritis Mother ??? Heart Disease Father ??? Arthritis Father ??? Arthritis Sister ??? Depression Brother SOCIAL HISTORY: Social History Social History ??? Marital status: Spouse name: N/A ??? Number of children: 1 ??? 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 Smoking status: Never Smoker ??? Smokeless tobacco: Never Used ??? Alcohol use Yes Comment: very rare use, denies ETOH abuse ??? Drug use: No Comment: denies illicit drug use or abuse ??? Sexual activity: Not on file Comment: deferred Other Topics Concern ??? Not on file Social History Narrative ROS: Review of Systems Constitutional: Negative. HENT: Negative. Eyes: Negative. Respiratory: Positive for apnea. Cardiovascular: Negative. Gastrointestinal: Positive for abdominal pain and diarrhea. Genitourinary: Negative for difficulty urinating, dysuria and hematuria. Musculoskeletal: Positive for back pain. Skin: Positive for rash. Neurological: Positive for syncope. This past spring, did not have it evaluated. Hematological: Positive for adenopathy. Does not bruise/bleed easily. Had a CT done to evaluate, which was negative according to the patient Psychiatric/Behavioral: Negative for dysphoric mood, sleep disturbance and suicidal ideas. The patient is not nervous/anxious. PHYSICAL EXAM: BP 155/82 Pulse 80 Ht 175.3 cm (5' 9) Wt (!) 114.8 kg (253 lb) SpO2 96% BMI 37.36 kg/m2 Physical Exam Constitutional: She appears well-developed and well-nourished. HENT: Head: Normocephalic. Eyes: EOM are normal. Pupils are equal, round, and reactive to light. Neck: Neck supple. Cardiovascular: Normal rate, regular rhythm and normal heart sounds. Exam reveals no friction rub. No murmur heard. Pulmonary/Chest: Effort normal and breath sounds normal. Skin: Skin is warm and dry. Psychiatric: She has a normal mood and affect. Her behavior is normal. Judgment and thought content normal. LUMBAR SPINE EXAMINATION: Inspection: Scar: Yesconsistent with stated surgery; Obvious rash or infection: No Gait:foot drop right Range of motion: unrestricted with lumbar spine flexion, extension Left Right Muscle spasm/pain Yes Yes Sacroiliac joint tenderness No No Facet joint tenderness Yes Yes Harris's test (facet loading) Positive Positive Paraspinous region tenderness Yes Yes Heel walk Normal Abnormal decreased ability Toe walk Normal Normal Straight leg raise negative negative Motor: Segment Muscle Action R L L3 Quadriceps Knee extension 5 /5 5/5 L4,5 Hamstring Knee Flexion 5/5 5 /5 L4 Tibialis anterior Dorsiflexion 5/5 5 /5 L5 Extensor hallucis Great toe extension 2/5 5 /5 S1 Gastrocnemius, FHL Plantar flexion 5/5 5/5 Hip ADduction 5/5 5/5 Hip ABduction 5/5 5/5 * exam limited by pain Reflexes: Segment Tendon LEFT RIGHT L3-4 Patella 2+ 2+ S1 Ankle 1+ 1+ Sensory: Light Touch (0=absent, 1-impaired, 2=normal) Decreased sensation lateral leg, ankle and dorsum of foot -right Segment location Right Left L1 upper inner thigh 2 2 L2 mid-ant thigh 2 2 L3 med femoral condyle 2 2 L4 medial mal 2 2 L5 dorsum foot, 3rd MT 1 2 S1 lat heel 1 2 S2 Popliteal fossa 2 2 RADIOLOGIC DATA: I have independently visualized the following studies : MRI: 03/04/17 EXAMINATION: MRI LUMBAR SPINE WO CONTRAST (GENERIC) ?? CLINICAL HISTORY: Worsening of lumbar radiculopathy right L5. History of prior back surgery ?? TECHNIQUE: MR of the lumbar spine performed without the use of intravenous contrast. ?? COMPARISON: 08/26/2005 ?? FINDINGS: Alignment of the lumbar spine is unchanged. There is no focal, aggressive appearing marrow lesion. A Schmorl's node is present in the superior endplate of L3. Normal-appearing conus terminates at the L1-L2 level. There are enlarged iliac chain lymph nodes, and lymph nodes in the periaortic region as well. Visualized retroperitoneal structures are otherwise unremarkable. ?? Findings at specific levels: L1-L2: There is mild disc bulging without central canal or foraminal stenosis. ?? L2-L3: There is loss of disc height. Small bilateral foraminal disc protrusions contributing to very mild caudal neural foraminal narrowing. No central canal stenosis. ?? L3-L4: There is mild disc bulging with minimal caudal neural foraminal narrowing. No central canal stenosis. ?? L4-L5: There is loss of disc height. There is mild disc bulging and facet arthropathy contributing to mild foraminal narrowing. ?? L5-S1: There are surgical changes. Posterior disc is present. There is no central canal or foraminal stenosis. ?? IMPRESSION 1. Disc degenerative changes as above without visible nerve root impingement. 2. Periaortic and enlarged iliac chain lymph nodes. This is a nonspecific finding. Consider evaluation with CT of the abdomen and pelvis. Unexpected finding. ?? By my view: lumbar spondylosis, degenerative disc disease particularly at L4 Mild right foraminal narrowing at L4-5 ASSESSMENT: Assessment 1. Spinal stenosis of lumbar region, unspecified whether neurogenic claudication present 2. Foraminal stenosis of lumbar region 3. Lumbosacral spondylosis without myelopathy 4. S/P lumbar discectomy The patient has longstanding low back pain and lower extremity pain. She is s/p lumbar discectomy [id number] and has had intermittent pain since then. She had an exacerbation in 2001. She has had several YARA and right L4-5 transforaminal epidural steroid injections at [facility] over the years with improvement in LE symptoms. She states that at that time, her pain was worse. She has evidence of L5 radiculopathy on exam. There are minor findings on CE of right foraminal narrowing and posterior disc at L5. There is no central canal or foraminal narrowing at L5. The patient's symptoms relate more to L4 findings. The L5 radiculopathy did not occur until 2001 according to the patient. The patient's LE symptoms are worse than the back pain. She may also have facetogenic pain. The patient has pain with spine extension, facet tenderness, positive Harris's testing and evidence of facet arthropathy on imaging.Future consideration can be given to Lumbar Medial Branch Blocks,bilateral L4-L5 and L5-S1 levels, to eval uate the patient for facetogenic pain. We discussed re-trialing transforaminal epidural steroid injection L4-5 right, which has benefited the patient in the past. She has some left sided symptoms, but the right is worse and she would ratherhave this addressed. If the patient has continued back pain, with resolution of lower extremity symptoms, consideration can be given to diagnostic medial branch nerve blocks to evaluate the patient for facetogenic pain. We also discussed that the patient would benefit from a return to using the pool exercises at least 2 days per week. PLAN: 1. Right L4-5 transforaminal epidural steroid injection 2. If the patient has continued back pain, with resolution of lower extremity symptoms, consideration can be given to diagnostic medial branch nerve blocks to evaluate the patient for facetogenic pain. 3. pool exercises at least 2 days per week. 4. Follow up with Pain Clinic PHYSICIAN ASSISTANT CERTIFIED (Rachel Breen, PHYSICIAN ASSISTANT CERTIFIED, Gabriella Atkinson PHYSICIAN ASSISTANT CERTIFIED or Pippa Pena PHYSICIAN ASSISTANT CERTIFIED) as needed. Thank you for the opportunity to participate in Saundra Blanton's care. Please feel free to contact me with any questions. Sincerely, Alice Fishman MD Dispensary Clerk of Anesthesiology [facility] [address] [address] / [facility] documented in this encounter Plan of Treatment Upcoming Encounters Date Type Specialty Care Team Description 03/06/2022 Office Visit Cardiology Lizeth Frazier MD [facility] er [place], [place] [address] (Wo rk) 03/18/2022 Office Visit Neurology Donovan Mayer MD [facility] NEUROLOGY DEPT. [place], [place] [address] (Wo rk) 04/24/2022 Appointment Hematology and Oncology 04/24/2022 Office Visit Hematology and Oncology Renea Navarro MD [facility] HEMATOLOGY/ONCOL OGY DEPT. [place], [place] [address] (Wo rk) Scheduled Referrals Name Type Priority Associated Diagnoses Order S chedule Referral to Pain Outpatient Referral Routine Radiculopathy of Ordered: Clinic lumbar region 03/04/2017 documented as of this encounter Visit Diagnoses Diagnosis Spinal stenosis of lumbar region, unspec ified whether neurogenic claudication present Foraminal stenosis of lumbar region Spinal stenosis, lumbar region, without neurogenic claudication Lumbosacral spondylosis without myelopat hy S/P lumbar discectomy Other postprocedural status documented in this encounter Care Teams Stem Frazer Relationship Specialty Start Date End Date Fitz Jenkins MD PCP - General 04/10/10 07/27/17 4 [facility] [place] [address] documented as of this encounter
--- OUTSIDE RECORDS SUMMARY | 2021-12-21 00:36 | XMS_ITS | Encounter Summary ---
:1950 Author Organization [facility] [place] [address] Care Team Providers Name Role Phone Ingrid Espinosa APRN Primary Care Provider Reason for Referral Diagnostic Test (Routine) - Closed Specialty Diagnoses / Procedures Referred By Contact Refer red To Contact Radiology Diagnoses Diarrhea, unspecified type Suri Newton, [facility] Rad Nuclear Med Procedures NM Octreoscan SUZANNE [facility] [place] [address] [place] [address] Referral ID Status Reason Start Date Expiration Date Visits V isits Requested Authorized [id number] Closed Specialty 05/21/2018 05/21/2019 3 3 Service Requested Encounter Details Date Type Department Care Team Description 05/21/2018 Telephone Gastroenterology at [facility] Suri Newton [facility] [place] [address] [facility] [phone] GASTROENTEROLOGY [place], [place] [address] (Wo rk) Social History Tobacco [...] Telephone Encounter - Suri Newton APRN - 05/21/2018 8:44 AM EST Called patient to review slightly elevated 5HIAA. Recommend octreoscan. Fecal urgency has improved. Overall continues to have diarrhea. Denies weight loss. Has been taking colestipol one tablet once daily. She would like a refill. documented in this encounter Plan of Treatment Upcoming Encounters Date Type Specialty Care Team Description 03/06/2022 Office Visit Cardiology Lizeth Frazier MD [facility] [place], [place] [address] (Wo rk) 03/18/2022 Office Visit Neurology Donovan Mayer MD [facility] NEUROLOGY DEPT. [place], [place] [address] (Wo rk) 04/24/2022 Appointment Hematology and Oncology 04/24/2022 Office Visit Hematology and Oncology Renea Navarro MD [facility] HEMATOLOGY/ONCOL OGY DEPT. [place], [place] [address] (Wo rk) documented as of this encounter Results NM Octreoscan (06/16/2018 1:18 [...] e number below. ? Electronically signed by: Leno Baeza [facility] ([phone]), at 06/17/2018 12:38 PM Narrative 06/17/2018 12:38 [...] For questions regarding this report, please contact th e number below. Electronically signed by: Leon Baeza [facility] ([phone]), at 06/17/2018 12:38 PM Suri Newton APRN [facility] [place] ORDERABLES documented in this encounter Visit Diagnoses Diagnosis Diarrhea, unspecified type Diarrhea, unspecified type documented in this encounter Care Teams Safety Sitter Relationship Specialty Start Date End Date Ingrid Espinosa APRN PCP - General Internal Medicine 07/28/17 4 [place] [address] documented as of this encounter
--- OUTSIDE RECORDS SUMMARY | 2021-12-21 00:36 | XMS_ITS | Encounter Summary ---
:1950 Author Organization [facility] [place] [address] Care Team Providers Name Role Phone Ingrid Espinosa MULTIPLE SLIDE OPERATOR Primary Care Provider Encounter Details Date Type Department Care Team Description 03/02/2018 Ancillary Procedure [facility] [address] [place] [phone] (Wo rk) Social History Tobacco Use Types [...] Visit Cardiology Lizeth Frazier MD [facility] [address] [place] [address] (Wo rk) 03/18/2022 Office Visit Neurology Donovan Mayer MD [facility] ER NEUROLOGY DEPT. [place], [place] [address] (Wo rk) 04/24/2022 Appointment Hematology and Oncology 04/24/2022 Office Visit Hematology and Oncology Renea Navarro MD [facility] HEMATOLOGY/ONCOL OGY DEPT. [place], [place] [address] (Wo rk) documented as of this encounter Procedures Procedure Name Priority Date/Time Associated Diagnosis Comme nts FILM LIBRARY Routine 03/02/2018 12:00 AM Results for this STORAGE ONLY MAMMO EDT procedure are in the results section. documented in this encounter Results Film Library- Storage Only Mammo (03/02/2018 12:00 AM EDT) Specimen (Source) Anatomical Location Collection Method / Collectio n Time Received Time / Laterality Volume Narrative [facility] - 07/14/2020 4:35 PM EST This exam is auto-finalizing. It's purpo se is for storage only. Ingrid Espinosa APRN [facility] FILM LIBRARY ORDERABLES Performing Organization Address City/State/ZIP Code Phon e Number [place], [place] documented in this encounter Visit Diagnoses Not on filedocumented in this encounter Care Teams Hand Tapper Relationship Specialty Start Date End Date Ingrid Espinosa APRN PCP - General Internal Medicine 07/28/17 [address] [place] [address] documented as of this encounter
--- OUTSIDE RECORDS SUMMARY | 2021-12-21 00:36 | XMS_ITS | Encounter Summary ---
:1950 Author Organization [facility] [place] [address] Care Team Providers Name Role Phone Fitz Jenkins MD Primary Care Provider [phone] Reason for Visit Reason Onset Date Comments Pre Procedure Call 06/03/2017 2nd Attempt Encounter Details Date Type Department Care Team Description 06/03/2017 Telephone Pain Management at [facility], Pre Pr ocedure Call (2nd [place] SUPERVISOR INDUSTRIAL GARMENT Attempt) [place] [address] Social History Tobacco Use Types Packs/Day [...] this encounter Miscellaneous Notes Telephone Encounter - [facility], SUPERVISOR INDUSTRIAL GARMENT - 06/03/2017 9:44 AM EST Saundra Blanton :1950 Contact made with patient: I spoke to Ms. Blanton at 9:45 AM regarding her upcoming Right transforaminal injection scheduled on 06/04/2017 scheduled at 12:00PM with Dr. Alice Fishman MD. Medication and Allergy reconciliation: 1. Changes were made in the telephone encounter per patient; marked as reviewed, and closed. 2. Patient confirmed no IVP dye allergy. 3. Have you had any steroid injections anywhere in your body within the last two weeks? no Arrival time: The patient was instructed to arrive at 11:30AM on 06/04/2017. Senior Sales Operations Manager: The patient was reminded that they need to have a delivery truck driver heavy accompany them to her procedure who will remain onsite. Antibiotics/Skin assessment/Illness symptoms/Pain level assessment : 1. The patient confirmed that she is not taking antibiotics at this time. 2. The patient confirmed that she does not have any rashes, blisters, or skin breakdown on their body. 3. The patient confirmed that she does not have any active infections. 4. The patient confirmed that she does not have any symptoms of illness: fever, chills, cold, flu, nausea, vomiting. 5. The patient confirmed that she is still experiencing significant pain. Pain and Anti-anxiety Medications: 1. Nerve Block [...] taking on the day of the procedure. Does patient have history of any diagnosed bleeding disorders: No Anticoagulants: No NSAIDs: Does the patient take Aspirin/ASA? No Does the patient take an NSAID? Yes The patient confirmed that she discontinued taking Meloxicam on 06/02/2017. (Patient stopped this medication on her own) Implant: Patient has pacemaker/defibrillator: No Prior to checking in at [facility] [employer] [facility]ist, please be sure to empty your bladder. Patient confirmed understanding that if they do not follow the above their instructions, their procedure is likely to be cancelled. JENAE Durbin documented in this encounter Plan of Treatment Upcoming Encounters Date Type Specialty Care Team Description 03/06/2022 Office Visit Cardiology Lizeth Frazier MD [facility] er [place], [place] [address] (Wo rk) 03/18/2022 Office Visit Neurology Donovan Mayer MD [facility] ER NEUROLOGY DEPT. [place], [place] [address] (Wo rk) 04/24/2022 Appointment Hematology and Oncology 04/24/2022 Office Visit Hematology and Oncology Renea Navarro MD [facility] HEMATOLOGY/ONCOL CLAUDE DEPT. [place], [place] [address] (Wo rk) documented as of this encounter Visit Diagnoses Not on filedocumented in this encounter Care Teams Supervisor Fabrication And Assembly Relationship Specialty Start Date End Date Fitz Jenkins MD PCP - General 04/10/10 07/27/17 [address] [place] [address] documented as of this encounter
--- OUTSIDE RECORDS SUMMARY | 2021-12-21 00:36 | XMS_ITS | Encounter Summary ---
:1950 Author Organization [facility] [place] [address] Care Team Providers Name Role Phone Ingrid Espinosa Uriel PALACIOS Primary Care Provider Encounter Details Date Type Department Care Team Description 04/22/2018 Telephone Gastroenterology at [facility] [place] [address] Social History Tobacco Use Types Packs/Day [...] this encounter Miscellaneous Notes Telephone Encounter - Olamide Petersen - 04/22/2018 3:19 PM EST Sharita at [facility] calls to advise recent stool study was sent off to another facility and there were 2 combined but only can do single specimens, she will contact pt to review need for recollection. [phone] is her call back if needed for clarification. documented in this encounter Plan of Treatment Upcoming Encounters Date Type Specialty Care Team Description 03/06/2022 Office Visit Cardiology Lizeth Frazier MD [facility] er [place], [place] [address] (Wo rk) 03/18/2022 Office Visit Neurology Donovan Mayer MD [facility] NEUROLOGY DEPT. [place], [place] [address] (Wo rk) 04/24/2022 Appointment Hematology and Oncology 04/24/2022 Office Visit Hematology and Oncology Renea Navarro MD [facility] HEMATOLOGY/ONCOL CALIY DEPT. [place], [place] [address] (Wo rk) documented as of this encounter Visit Diagnoses Not on filedocumented in this encounter Care Teams Bookkeeping Manager Relationship Specialty Start Date End Date Ingrid Espinosa APRN PCP - General Internal Medicine 07/28/[address] [place] [address] documented as of this encounter
--- OUTSIDE RECORDS SUMMARY | 2021-12-21 00:36 | XMS_ITS | Encounter Summary ---
:1950 Author Organization [facility] [place] [address] Care Team Providers Name Role Phone Ingrid Espinosa SUZANNE Primary Care Provider Encounter Details Date Type Department Care Team Description 01/14/2018 Office Visit Hematology and Ramon CLL (chronic lymphocytic leukemia); Oncology at [facility] MD Virgilio Hypogammaglobulinemia [facility] [address] [place] [address] [address] DEPT. [phone] [place] [address] Social History Tobacco Use Types Packs/Day Years [...] Sign Reading Time Taken Comments Blood Pressure 145/68 01/14/2018 1:43 PM EDT Pulse 80 01/14/2018 1:43 PM EDT Temperature 36.5 ??C (97.7 ??F) 01/14/2018 1:43 PM EDT Respiratory Rate 18 01/14/2018 1:43 PM EDT Oxygen Saturation 96% 01/14/2018 1:43 PM EDT Inhaled Oxygen Concentration - - Weight 116.7 kg (257 lb 3.2 oz) 01/14/2018 1:43 PM EDT Height 178 cm (5' 10.08) 01/14/2018 1:43 PM EDT Body Mass Index 36.82 01/14/2018 1:43 PM EDT documented in this encounter Progress Notes Virgilio Navarro MD - 01/14/2018 1:30 PM EDT Images from the original note were not included. HEMATOLOGY FOLLOW UP VISIT NOTE REASON FOR VISIT: Saundra Blanton is a 67 y.o. female referred by Ingrid Espinosa APRN for evaluationof lymphocytosis and lymphadenopathy. HEMATOLOGY PROBLEM LIST: CLL: ?? 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 CBC on 09/24/17 revealed WBC of 20.5, with 84% lymphocytes (ALC of 17.4), Hgb of 14.8, MCV: 90, Plt count: 159. She is referred to [facility] for further evaluation of the incidentally [...] ?? LDH and B2MG: normal ?? FISH: pending ?? Hypogammaglobulinemia: IgG of 612 INTERIM HISTORY: Saundra Blanton is a 67 y.o. female with medical Hx of hypothyroidism, CARLOS, morbid obesity, carcinoidtumor of stomach, b/l hip OA, GERD, hypertension, hyperlipidemia, h/o DVT in the period (not currently anticoagulated), chronic low back and right lower extremity pain, s/p lumbar [id number], followed by pain management at , bilateral angiomyolipomas,being followed by urology at [facility], presenting for f/up for CLL. In office today, Saundra Blanton is here for f/up visit, accompanied by Suri, her daughter. Feels tired; Otherwise, no other issues; She reports that she feels pretty healthy. - She can easily walk 1.5 mile; She walks slowly b'se of her back and leg pain. - h/o chronic diarrhea : once or twice a week, not more than 3 BMs a day, watery to soft; No blood or mucus; does not take any stool softeners; - No infections in the past 6months - No fevers, night sweats, no weight loss; - No swellings that she noticed; - No active cardiac/resp/GI issues ; Rest [...] K21.9 ??? CLL (chronic lymphocytic leukemia) C91.90 ?? H/o carcinoid tumor of stomach, resected at [facility] in 2006. Pt reports that it was very small. She had annuar EGDs for 3 years and then Q3y. Last EGD (08/19/17) by [facility], at [facility] showed few polyps, which were biopsied and there is no recurrence of carcinoid on these. Annual EGDs were recommended. MEDICATIONS ??? acetaminophen/diphenhydramine (TYLENOL PM ORAL) ??? melatonin 3 mg Tablet ??? gabapentin (NEURONTIN) 300 mg Capsule ??? diphenhydrAMINE (BENADRYL) 50 mg Capsule ??? cholecalciferol, Vitamin D3, 1,000 unit Tablet ??? mometasone (NASONEX) 50 mcg/actuation [place], Non-Aerosol ??? meloxicam (MOBIC) 15 mg Tablet ??? Calcium 500 mg Tab ??? nystatin (MYCOSTATIN) powder ??? fluticasone (FLONASE) 50 mcg/actuation nasal spray ??? ketoconazole (NIZORAL) 2 % cream ??? [...] ??? levothyroxine (SYNTHROID) 25 mcg tablet ??? valsartan (DIOVAN) 160 mg tablet ALLERGIES/ADR Allergies Allergen Reactions ??? Latex Rash and Other (See Comments) Red welts ??? Sulfa (Sulfonamide Antibiotics) Rash ??? Adhesive Tape-Silicones Rash ??? Codeine Other (See Comments) Bad dreams ??? Gluten ??? Hydrocodone-Acetaminophen Other (See Comments) Mental Status Changes ??? Penicillins ??? Unclassified Drug Other (See Comments) gluten PERSONAL and SOCIAL HISTORY Social History Social History ??? Marital status: Spouse name: N/A ??? Number of children: 1 ??? 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 Smoking status: Never Smoker ??? Smokeless tobacco: Never Used ??? Alcohol use Yes Comment: very rare use, denies ETOH abuse ??? Drug use: No Comment: denies illicit drug use or abuse ??? Sexual activity: Not on file Comment: deferred Other Topics Concern ??? 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 [facility] Contact Permission:?? OK to leave message on machine. ?? FAMILY HISTORY Family History Problem Relation Age of Onset ??? Heart Disease Mother ??? Arthritis Mother ??? Heart Disease Father ??? Arthritis Father ??? Arthritis Sister ??? Depression Brother ?? One daughter: she has Silva Danlos syn; PHYSICAL EXAM VITAL SIGNS: Blood pressure 145/68, pulse 80, temperature 36.5 ??C (97.7 ??F), temperature source Temporal, resp. rate 18, height 178 cm (5' 10.08), weight 116.7 kg (257 lb 3.2 oz), SpO2 96 %. ECOG PS: 1 GENERAL: Saundra Blanton is a well-appearing 67 y.o. female in no acute distress. HEENT: [...] Recent Results (from the past 72 hour(s)) Comprehensive metabolic panel (non-fasting) Result Value Ref Range Glucose Lvl 81 65 - 199 mg/dL BUN 16 8 - 18 mg/dL Creatinine 0.80 0.70 - 1.20 mg/dL Sodium 142 135 - 145 mmol/L Potassium 4.2 3.5 - 5.0 mmol/L Chloride 104 98 - 107 mmol/L CO2 26 22 - 31 mmol/L Anion Gap 12 5 - 15 mmol/L Calcium 10.2 8.5 - 10.5 mg/dL Total Protein 7.2 6.1 - 8.0 gm/dL Albumin 4.7 3.2 - 5.2 gm/dL AST 23 0 - 30 unit/L ALT 17 0 - 30 unit/L Alk Phos 78 40 - 104 unit/L Total Bilirubin 0.3 0.2 - 1.3 mg/dL eGFR 76 >=60 mL/min/1.73 m?? eGFR 88 >=60 mL/min/1.73 m?? Lactate Dehydrogenase Result Value Ref Range LDH 214 110 - 220 unit/L Hemogram Result Value Ref Range WBC 24.3 (H) 4.0 - 9.5 x10(3)/mcL RBC 4.98 4.00 - 5.21 x10(6)/mcL Hemoglobin 15.1 11.7 - 15.5 gm/dL Hematocrit 45.4 35.7 - 45.8 % MCV 91.2 82.6 - 94.4 fL MCH 30.3 27.1 - 32.0 pg MCHC 33.3 31.7 - 35.0 gm/dL Platelets 142 (L) 145 - 357 x10(3)/mcL RDWSD 44.2 37.0 - 46.0 fL RDWCV 13.2 11.5 - 14.1 % MPV 10.7 7.6 - 12.9 fL nRBC % Auto 0.2 % nRBC Abs Auto 0.040 (H) 0.000 - 0.000 x10(3)/mcL RADIOLOGY - None ASSESSMENT & PLANS Saundra Blanton is a 67 y.o. female with medical Hx of hypothyroidism, CARLOS, morbid obesity, carcinoidtumor of stomach, b/l hip OA, GERD, hypertension, hyperlipidemia, h/o DVT in the period (not currently anticoagulated), chronic low back and right lower extremity pain, s/p lumbar [id number], followed by pain management at , bilateral angiomyolipomas,being followed by urology at [facility], presenting for f/up to review the CLL diagnosis. # CLL, stage I at diagnosis, with CD38+, ZA70+; FISH results are pending. I discussed the flow cytometry results confirming CLL. I reviewed the etiology and pathophysiology of CLL. I reviewed how CLL develop and how they can affect bone marrow, blood, and lymph nodes. We discussed the Chen staging , but stressed that, molecular and cytogenetic markers are much more important for prognosis now. The clinical course of CLL is unpredictable but in most cases is quite good. Many times, no treatment is needed for years. She will needlife long f/u with intermittent appts and scans. There is a potential for transformation from indolent CLL to aggressive lymphomas seen in ~5% of pts. We discussed the indications to treat CLL.: worsening anemia or thrombocytopenia, disease related symptoms (ftigue, fevers, night sweats, weight loss), bulky disease (spleen >6cm below costal margin, LN>10cm), threatened end organ function due to adenopathy, etc. High ALC alone is not an indication for treatment alone unless>200-300k or symptoms related to leukostasis. CLL does not require immediate treatment and the watch and wait approach is recommended. discussed the rationale for this approach. Clinically she is asymptomatic. No palpable lymphadenopathy on exam. I reviewed the labs with her from today: ANC is relatively stable, H&H normal, mild thrombocytopenia with platelet count at 140 2K we will monitor. I discussed with her and her daughter that she does not have any indication for treatment for her CLL at this time. So I recommend watch and wait approach with labs and f/ups every 3months. # Hypogammaglobulinemia: IgG of 612 ; no h/o frequent infections; will monitor; # Chronic back pain and RLE pain: follows with pain management; # Carcinoid tumor of stomach: Has regular EGDs, being followed by GI; # Angiomyolipomas : being followed by urology; f/up in 2 years with US recommended # Nephrolithiasis (non obstructing): Evaluated by Uro and advised to drink plenty of fluids; IN SUMMARY: - CLL : stage I: No indication for treatment. - She needs to be update on all vaccinations: Pneumococcal Q5y, annual influenza, shingrex; - Avoid live attenuated vaccines; I reviewed my impression and recommendations with Saundra Blanton and answered all the questions to her satisfaction. she understands the plan, and knows that she can contact us at any time should any new symptoms, concerns or questions arise. Virgilio Navarro MD [employer] Stitcherharbor department manager Section of Hematology/Oncology [facility] CC: Ingrid Espinosa APRN documented in this encounter Plan of Treatment Upcoming Encounters Date Type Specialty Care Team Description 03/06/2022 Office Visit Cardiology Lizeth Frazier MD [facility] [address] [place] [address] (Wo rk) 03/18/2022 Office Visit Neurology Donovan Mayer MD [facility] NEUROLOGY DEPT. [place], [place] [address] (Wo rk) 04/24/2022 Appointment Hematology and Oncology 04/24/2022 Office Visit Hematology and Oncology Renea Navarro MD [facility] HEMATOLOGY/ONCOL CLAUDE DEPT. [place], [place] [address] (Wo rk) documented as of this encounter Visit Diagnoses Diagnosis CLL (chronic lymphocytic leukemia) Chronic lymphoid leukemia, without menti on of having achieved remission Hypogammaglobulinemia Hypogammaglobulinaemia, unspecified documented in this encounter Care Teams Block Paver Relationship Specialty Start Date End Date Ingrid Espinosa APRN PCP - General Internal Medicine 07/28/[address] [place] [address] documented as of this encounter
--- OUTSIDE RECORDS SUMMARY | 2021-12-21 00:36 | XMS_ITS | Encounter Summary ---
:1950 Author Organization [facility] [place] [address] Care Team Providers Name Role Phone Guillermina Espinosayce Uriel PALACIOS Primary Care Provider Encounter Details Date Type Department Care Team Description 05/28/2018 Telephone Gastroenterology at [facility] [place] [address] Social History Tobacco Use Types Packs/Day [...] encounter Miscellaneous Notes Telephone Encounter - Vandana Schulz Uriel - 05/28/2018 2:39 PM EST Saundra Blanton [id number] Diagnosis: ? IBD ? colitis 1. Have you ever had a colonoscopy before? [x] YES [] NO If Yes, Date of Last [place]: If yes, did you have any problems with the procedure? [] YES [x] NO Explain: What type of sedation was used: ? Was at [facility] 2. Do you take any Blood Thinners? [] YES [x] NO If Yes, type: 3. Do you have a Pacemaker or Defibrillator device? [] YES [x] NO If Yes send [employer] message to [employer] DEVICE CHECK 4. Are you a diabetic? [] YES [x] NO If yes, controlled by meds or diet? 5. Do you have any Allergies to Eggs, Latex or Medications? [x] YES [] NO If Yes, what:____penicillin 6. Do you take any Oral Iron Supplements (Including multi vitamins)? [] YES [x] NO 7. Do you have a history of three or more abdominal surgeries? [] YES [x] NO 8. Have you had a problem with sedation or anesthesia? [] YES [x] NO 9. Do you have a c-pap machine or oxygen tank? [] C-PAP [] Oxygen [x] NO 10. Do you take prescription narcotic pain medications? [] YES [x] NO 11. You must have a responsible green party stay at the facility during your procedure and drive you home? [x] YES 12. Is there any other information you would like to give us to aid in scheduling? Height: 5'9 Weight: 245 BMI: ____ Age:68 y.o. documented in this encounter Plan of Treatment Upcoming Encounters Date Type Specialty Care Team Description 03/06/2022 Office Visit Cardiology Lizeth Frazier MD [facility] er [place], [place] [address] (Wo rk) 03/18/2022 Office Visit Neurology Donovan Mayer MD [facility] NEUROLOGY DEPT. [place], [place] [address] (Wo rk) 04/24/2022 Appointment Hematology and Oncology 04/24/2022 Office Visit Hematology and Oncology Renea Navarro MD [facility] HEMATOLOGY/ONCOL OGY DEPT. [place], [place] [address] (Wo rk) documented as of this encounter Visit Diagnoses Not on filedocumented in this encounter Care Teams Official Court Interpreter Relationship Specialty Start Date End Date Ingrid Espinosa APRN PCP - General Internal Medicine 07/28/17 [facility] [place] [address] documented as of this encounter
--- OUTSIDE RECORDS SUMMARY | 2021-12-21 00:36 | XMS_ITS | Encounter Summary ---
:1950 Author Organization [facility] [place] [address] Care Team Providers Name Role Phone Ingrid Espinosa APRN Primary Care Provider Reason for Visit Reason Comments Skin Check Consultation (Routine) - Closed Specialty Diagnoses / Procedures Referred By Contact Refer red To Contact Dermatology Diagnoses SKIN CHANGE Ingrid Espinosa APRN [facility] [address] [place] [address] [place] [address] Fax: Referral ID Status Reason Start Date Expiration Date Visits V isits Requested Authorized [id number] Closed Consult, 01/15/2018 01/15/2019 1 1 [facility] Encounter Details Date Type Department Care Team Description 03/03/2018 Office Visit Dermatology at Migdalia Plata MD [facility] [address] JEN[place] [address] Multiple benign nevi; Haydee Oliver PA [facility] [address] JENEL[place] [address] Schreiber angiomas; [address] SKs (seborrheic keratoses); [place] [address] Lentigines; [phone] Dysplastic nevu s Social History Tobacco Use Types Packs/Day Years [...] as of this encounter Patient Instructions Patient InstructionsJovita Jamil - 03/03/2018 2:30 PM EDT ABOUT YOUR TREATMENTS Your Treatment today: You had a biopsy of your skin (removal of a small piece of tissue for examination under microscope).You had a shave biopsy and do not have sutures. Location of your biopsy: Keep in mind the location of your biopsy site in case further treatment is necessary. Wound care Instructions: 1. Keep wound dry and covered for 24 hours then clean area with soap and water. 2. Pat dry completely 3. Cover with Vaseline and a new bandage daily, do this everyday until the wound is healed Please call [phone] if you have questions or concerns. * Please allow one or two weeks for the biopsy results to return. *Based on your biopsy results we will either call you or send you a letter with the results. *If in two weeks, you have not heard from us, please feel free to call and request your biopsy results. documented in this encounter Progress Notes Haydee Rouse PA - 03/03/2018 2:30 PM EDT Images from the original note were not included. DERMATOLOGY - NEW PATIENT CONSULT NOTE Date of service: 03/03/2018 Saundra Blanton : 1950, 67 y.o. CC: Chief Complaint Patient presents with ??? Skin Check HPI: Saundra Blanton is a 67 y.o. female seen in consultation at the request of Ingrid Espinosa for a full skin exam with scattered spots on her torso. Denies itching, bleeding, or tenderness of any of these lesions. Denies prior treatments. Relevant Skin History: - Okay to leave detailed message with results? Yes 05/23/2010: Left vertex of scalp, hemangioma (shave biopsy) Family History: Melanoma: None Relevant Social History: - Lives in [place], [place] Medications: Current Outpatient Medications Medication Sig Dispense Refill ??? acetaminophen/diphenhydramine (TYLENOL PM ORAL) Take by mouth. ??? melatonin 3 mg Tablet Take by mouth. ??? gabapentin (NEURONTIN) 300 mg Capsule TAKE 1 CAPSULE NIGHTLY 90 capsule 1 ??? diphenhydrAMINE (BENADRYL) 50 mg Capsule Take 50 mg by mouth nightly. ??? cholecalciferol, Vitamin D3, 1,000 unit Tablet Take 1,000 Units by mouth daily. ??? mometasone (NASONEX) 50 mcg/actuation [place], Non-Aerosol 2 sprays by Nasal route daily. ??? meloxicam (MOBIC) 15 mg Tablet Take 15 mg by mouth daily. 0 ??? Calcium 500 mg Tab Take 500 mg by mouth daily. ??? nystatin (MYCOSTATIN) powder Apply topically 3 times daily as needed. ??? fluticasone (FLONASE) 50 mcg/actuation nasal spray 1 spray 2 times daily as needed. ??? ketoconazole (NIZORAL) 2 % cream Apply topically. Mixing with Desonide, under breasts, skin folds on abdomen 2 times daily for 2 weeks, then as needed for maintenance (Patient taking differently: Apply topically 2 times daily. Mixing with Desonide, under breasts, skin folds on abdomen 2 times daily for 2 weeks, then as needed for maintenance) 30 g 2 ??? desonide (DESOWEN) 0.05 % cream Apply topically. Mix with Ketoconazole, under breasts, skin folds on abdomen 2 times daily for 2 weeks, then as needed for maintenance (Patient taking differently: Apply topically 2 times daily. Mix with Ketoconazole, under breasts, skin folds on abdomen 2 times daily for 2 weeks, then as needed for maintenance) 30 g 2 ??? acetaminophen (TYLENOL) 500 [...] SYSTEMS (HORIZON NASAL CPAP SYSTEM MISC) by [facility]Non- Drug; Combo Route) route nightly. ??? TENS UNITS MISC by [facility]Non-Drug; Combo Route) route. Tens machine Daily for back and leg ??? pantoprazole (PROTONIX) 40 mg tablet Take 40 mg by mouth daily. ??? simvastatin (ZOCOR) 20 mg tablet Take 20 mg by mouth nightly. ??? levothyroxine (SYNTHROID) 25 mcg tablet Take 37.5 mcg by mouth daily. ??? valsartan (DIOVAN) 160 mg tablet Take 160 mg by mouth daily. No current facility-administered medications [...] extremities, hands, and feet. The genitalia were not examined. Diagnosis/Skin findings/Assessment/Plan: 1. Atypical nevus - Left lateral thigh: 4mm medium brown reticulated macule with atypical pigment pattern. - Joint decision to proceed with shave biopsy today. Procedure: Skin biopsy by shave technique Location: as above Discussed indications for procedure and expectations including risks and benefits. Verbal consent obtained. Skin prep with alcohol. Local anesthesia with 1% xylocaine, 1/100,000 epinephrine. A sample of the lesion was removed by shave technique to the level of the dermis and submitted to Pathology. Hemostasis obtained (AlCl and/or electrocautery). There were no complications; the pt. tolerated the procedure well. The wound was dressed. Post-procedure expectations, wound care and activity restrictions were reviewed. Follow-up based on pathology results. Photos taken (by Louias Rouse) and documented with patient consent. 2. Benign appearing nevi - Scattered: Multiple, [...] benign nature. - No treatment necessary. 5. Seborrheic keratoses - Scattered: Multiple 0.4-0.6cm brown papules with waxy, stuck-on appearance. Milia-like cysts, comedone-like openings and/or fissuring on dermoscopy. - Patient reassured of benign nature. - Advised patient to call if areas become inflamed or irritated. LOS: RTC: Pending pathology, otherwise 2 years for FSE. Routed for scheduling. Note initiated by Elke Falcon CMA. I, Jovita Jamil, have performed the documentation for this encounter in the presence of and acting as a scribe for Haydee (Louisa) Nasim, PA-C. I performed the services which were documented by the scribe, and I agree with the accuracy of the documentation in this encounter. Haydee Rouse PA-C (Bri) Reviewed and signed by Haydee Rouse PA-C [facility] Patient seen in conjunction with staff soda dispenser: Anita Brandt MD Section of Dermatology [facility] Anita Brandt MD - 03/03/2018 2:30 PM EDT One clinically atypical nevus on the L thigh, will biopsy today. Patient seen in conjunction with Haydee Rouse PA-C (Bri) Signed by: ANITA BRANDT MD Section of Dermatology [facility] documented in this encounter Plan of Treatment Upcoming Encounters Date Type Specialty Care Team Description 03/06/2022 Office Visit Cardiology Lizeth Frazier MD [facility] [place], [place] [address] (Wo rk) 03/18/2022 Office Visit Neurology Donovan Mayer MD [facility] NEUROLOGY DEPT. [place], [place] [address] (Wo rk) 04/24/2022 Appointment Hematology and Oncology 04/24/2022 Office Visit Hematology and Oncology Renea Navarro MD [facility] HEMATOLOGY/ONCOL CLAUDE DEPT. [place], [place] [address] (Wo rk) documented as of this encounter Procedures Procedure Name Priority Date/Time Associated Diagnosis Comme nts SURGICAL PATHOLOGY Routine 03/03/2018 3:01 PM Res ults for this REPORT EDT procedure are i n the results section. SPECIMEN TO Routine 03/03/2018 3:01 PM Dysplastic nevus Resul ts for this PATHOLOGY EDT procedure are i n the results section. documented in this encounter Results Surgical Pathology Report (03/03/2018 3:01 PM EDT) Component Value Ref Test Analysis Performed At [facility] Range Method Time Signature Surgical [id number] ? Location: [facility] Pathology [place] Report The signing pathologist has (i) examined the relevant preparation(s) for the [facility] specimen(s) and (ii) rendered or confirmed the diagnosis(es) . HOSPITAL LABORATORY . ?Surgic al Pathology DIAGNOSIS Skin, left lateral thigh, shave ?? biopsy: - Lentiginous junctional dys plastic melanocytic nevus with severe atypia, extending close to peripheral specimen edges, see Discussion. Electronically signed by: ??Anthony Cast MD Verified: ??03/05/2018 ?Dermatopathologist, Bone & Soft Tissue Pathologist Performed at: ??-[facility] Dept. of Pathology, [place], [place] DISCUSSION The differential diagnosis i ncludes a ?? dysplastic nevus-like ??melanoma in situ. I recommend this lesion to be re-excised to ensure eradicatio n. Another dermatopathologist manda guzman our group has also reviewed this case and concurs with this diagnosis. CLINICAL INFORMATION Specimen Submitted: A - Skin, Left lateral thigh: 4mm medium brownreticulated macule with atypical pigment pattern, shave (1) Clinical History and Diagnosis: 4 mm medium brown reticulate d macule with atypical pigment pattern; dysplastic nevus SPECIMEN PROCESSING A - Labeled/Fixative: Left lateral thigh, formalin. Quantity/Size: ??Single, 1.0 x 0.6 x 0.1 cm. Tissue Description: Shave of simmons-white skin with a central 0.4 sediment are symmetrical, dark brown macule. Sections/Processing: Inked, serially sectioned and entirely submitted in 2 thomas ettes as follows: ? A1: ??Tips ? A2: ??Body ??ejr Specimen (Source) Anatomical Collection Method Collection Time Re ceived Time Location / / Volume Laterality 03/03/2018 3:01 PM EDT Haydee COPPOLA PATHOLOGY/CYTOLOGY ORDERABLE S Performing Organization Address City/[facility]/[place] [address] Specimen to Pathology (03/03/2018 3:01 PM EDT) Specimen Anatomical Collection Method Collection Time Receive d Time (Source) Location / / Volume Laterality AP Specimen 03/03/2018 3:01 PM 8 6:08 EDT PM [address] [facility] [facility] - 03/03/2018 6:08 PM EDT Specimen requisition ordered. ??Separate Pathology report to follow Resulting Agency Comment Spec In Lab Anita Brandt MD PATHOLOGY/CYTOLOGY ORDERABLE S Performing Organization Address City/[facility]/[place] [address] documented in this encounter Visit Diagnoses Diagnosis Multiple benign nevi Benign neoplasm of skin, site unspecifie d Schreiber angiomas Nevus, non-neoplastic SKs (seborrheic keratoses) Other seborrheic keratosis Lentigines Other dyschromia Dysplastic nevus Benign neoplasm of skin, site unspecifie d documented in this encounter Care Teams Project Officer Relationship Specialty Start Date End Date Ingrid Espinosa APRN PCP - General Internal Medicine 07/28/17 [address] [place] [address] documented as of this encounter
--- OUTSIDE RECORDS SUMMARY | 2021-12-21 00:36 | XMS_ITS | Encounter Summary ---
:1950 Author Organization [facility] [address] Care Team Providers Name Role Phone Ingrid Espinosa Uriel PALACIOS Primary Care Provider Encounter Details Date Type Department Care Team Description 01/14/2018 Hospital Encounter Hematology and CLL ([facility] Oncology at [facility] lymphocytic leukemia) [place] [address] Social History Tobacco Use Types Packs/Day [...] Sig Dispensed Refills Start Date End Date acetaminophen/diphenhydr Take 1 tablet by 0 amine [...] 0 tablet mouth daily. OXYGEN-AIR DELIVERY by [facility].(Non-Drug; 0 SYSTEMS (HORIZON NASAL Combo Route) route CPAP SYSTEM [facility]) nightly. levothyroxine Take 37.5 mcg by 0 (SYNTHROID) 25 mcg mouth daily. tablet melatonin 3 mg Tablet Take by mouth. 0 06/13/2020 gabapentin (NEURONTIN) TAKE 1 CAPSULE 90 capsule 1 8 04/23/2018 300 mg Capsule NIGHTLY diphenhydrAMINE Take 50 mg by mouth 0 04/08/2018 (BENADRYL) 50 mg Capsule nightly. mometasone (NASONEX) 50 2 sprays by Nasal 0 04/08/2018 mcg/actuation [place], route daily. Non-Aerosol meloxicam (MOBIC) 15 mg Take 15 mg by mouth 0 04/16/2018 Tablet daily. fluticasone (FLONASE) 50 1 spray 2 times 0 04/08/2018 mcg/actuation nasal daily as needed. spray DULoxetine (CYMBALTA) 60 Take 60 mg by mouth 0 01/13/2019 mg capsuleIndications: daily. Indications: fibromyalgia Fibromyalgia TENS UNITS MISC by [facility].(Non-Drug; 0 0 01/13/2019 Combo Route) route. Tens [...] 03/06/2022 Office Visit Cardiology Martha Frazier MD [facility] [place] [address] (Wo rk) 03/18/2022 Office Visit Neurology Donovan Mayer MD [facility] NEUROLOGY DEPT. [employer] [place], [place] [address] (Wo rk) 04/24/2022 Appointment Hematology and Oncology 04/24/2022 Office Visit Hematology and Oncology Renea Navarro MD [facility] HEMATOLOGY/ONCOL CLAUDE DEPT. [place], [place] [address] (Wo rk) documented as of this encounter Procedures Procedure Name Priority Date/Time Associated Comments Diagnosis SCAN, PERIPHERAL BLOOD Routine 01/14/2018 12:43 R esults for this PM EDT procedure are i n the results section. HEMOGRAM Routine 01/14/2018 12:43 CLL (chronic Results for this PM EDT lymphocytic procedure are i n leukemia) the results section. DIFFERENTIAL, Routine 01/14/2018 12:43 CLL (chronic Results fo r this AUTOMATED PM EDT lymphocytic procedure are i n leukemia) the results section. CBC (WITH DIFF) Routine 01/14/2018 12:43 CLL (chronic PM EDT lymphocytic leukemia) LACTATE DEHYDROGENASE Routine 01/14/2018 12:43 CLL (chronic Re sults for this PM EDT lymphocytic procedure are i n leukemia) the results section. COMPREHENSIVE Routine 01/14/2018 12:43 CLL (chronic Results fo r this METABOLIC PANEL PM EDT lymphocytic procedure ar e in (NON-FASTING) leukemia) the results section. documented in this encounter Results Scan, Peripheral Blood (01/14/2018 12:43 PM EDT) [facility] gist Method Time Signature Plat Estimate Decreased [facility] RBC Morphology Normal [facility] Smudge Cells Present [facility] Specimen Anatomical Collection Method Collection Time Receive d Time (Source) Location / / Volume Laterality Blood specimen 01/14/2018 12:43 8 1:09 (specimen) PM EDT PM EDT Resulting Agency Comment Spec In Lab Virgilio Navarro MD HEMATOLOGY ORDERABLES Performing Organization Address City/State/[place] [address] (ABNORMAL) Differential, Automated (01/14/2018 12:43 PM EDT) [facility] Method Time Signature Neutrophils % 13.5 % [facility] Neutr Abs (ANC) 3.31 1.70 - [facility] 6.10 [facility] x10(3)/[facility] LABORATORY Lymphocytes % 81.6 % [facility] Lymphocytes Abs 19.8 (H) 0.9 - 3.2 [facility] x10(3)/[facility] LABORATORY Monocytes % 3.4 % [facility] Monocyte Abs 0.8 0.3 - 0.9 [facility] x10(3)/[facility] LABORATORY Eosinophils % 0.9 % [facility] Eosinophils Abs 0.2 0.0 - 0.4 [facility] x10(3)/[facility] LABORATORY Basophils % 0.5 % [facility] Basophils Abs 0.1 0.0 - 0.1 [facility] x10(3)/[facility] LABORATORY Immature Gran % 0.10 % [facility] Comment: Immature granulocytes(IG's)percentage an d absolute count will include metamyelocytes, myelocytes, and promyelo cytes. Blood smears from CBCs yielding IG's will be scanned manually for concor dance. If this scan disagrees with the automated IG or if promyelocytes are not ed, a manual differential will be performed. Betty Gran Abs 0.02 0.00 - 0.04 x10(3)/[facility] LABORATORY Specimen Anatomical Collection Method Collection Time Receive d Time (Source) Location / / Volume Laterality Blood specimen 01/14/2018 12:43 8 1:09 (specimen) PM EDT PM EDT Resulting Agency Comment Spec In Lab Virgilio Navarro MD HEMATOLOGY ORDERABLES Performing Organization Address City/State/[place] [address] (ABNORMAL) Hemogram (01/14/2018 12:43 PM EDT) [facility] Method Time Signature WBC 24.3 (H) 4.0 - 9.5 [facility] [place] x10(3)/[facility] LABORATORY RBC 4.98 4.00 - [place] 5.21 [facility] x10(6)/[facility] LABORATORY Hemoglobin 15.1 11.7 - [facility] 15.5 gm/dL [facility] Hematocrit 45.4 35.7 - [facility] 45.8 % [facility] MCV 91.2 82.6 - [facility] 94.4 [facility] LABORATORY MCH 30.3 27.1 - [place] 32.0 pg [facility] MCHC 33.3 31.7 - [place] 35.0 gm/dL [facility] Platelets 142 (L) 145 - 357 [facility] x10(3)/[facility] LABORATORY RDWSD 44.2 37.0 - [facility] [place] 46.0 [facility] LABORATORY RDWCV 13.2 11.5 - [facility] [place] 14.1 % [facility] MPV 10.7 7.6 - 12.9 [place] [facility] LABORATORY nRBC % Auto 0.2 % [facility] nRBC Abs Auto 0.040 (H) 0.000 - [place] 0.000 [facility] x10(3)/[facility] LABORATORY Specimen Anatomical Collection Method Collection Time Receive d Time (Source) Location / / Volume Laterality Blood specimen 01/14/2018 12:43 8 1:09 (specimen) PM EDT PM EDT Resulting Agency Comment Spec In Lab Virgilio Navarro MD HEMATOLOGY ORDERABLES Performing Organization Address City/State/[place] [address] Lactate Dehydrogenase (01/14/2018 12:43 PM EDT) P athologist Signature LDH 214 110 - 220 [facility] unit/L [facility] Specimen Anatomical Collection Method Collection Time Receive d Time (Source) Location / / Volume Laterality Blood specimen 01/14/2018 12:43 8 1:09 (specimen) PM EDT PM EDT Resulting Agency Comment Spec In Lab Virgilio Navarro MD CHEMISTRY ORDERABLES Performing Organization Address City/State/[place] [address] Comprehensive metabolic panel (non-fasting) (01/14/2018 12:43 PM EDT) athologist Signature Glucose Lvl 81 65 - 199 [facility] mg/dL [facility] Comment: Diabetes: >=200 mg/dL plus symp toms BUN 16 8 - 18 mg/dL [facility] Creatinine 0.80 0.70 - 1.20 mg/dL [facility] Sodium 142 135 - 145 mmol/L [facility] Potassium 4.2 3.5 - 5.0 mmol/L [facility] Comment: Please note: ??Patients with WBC >100,00 0 may have falsely elevated Potassium levels. ??For accurate Potassium quantif ication in these patients send serum separator tube (gold top) for subsequent determinations. ??Contact the Clinical Chemistry Laboratory if there are any qu estions. Chloride 104 98 - 107 mmol/L [facility] CO2 26 22 - 31 mmol/L [facility] Anion Gap 12 5 - 15 mmol/L [facility] Calcium 10.2 8.5 - 10.5 mg/dL [facility] Total Protein 7.2 6.1 - 8.0 gm/dL [facility] Albumin 4.7 3.2 - 5.2 gm/dL [facility] AST 23 0 - 30 unit/L [facility] ALT 17 0 - 30 unit/L [facility] Alk Phos 78 40 - 104 unit/L [facility] Total Bilirubin 0.3 0.2 - 1.3 mg/dL [facility] Estimated GFR 76 >=60 mL/min/1.73 m?? [facility] Comment: The eGFR was calculated using the CKD-EP I equation. As with all creatinine based estimates of kidney function, eGFR values calculated with the CKD-EPI equation are not accurate in patients wi th acute kidney failure, extremes of body mass or the acutely ill. http://[employer]/[facility] eGFR 88 >=60 mL/min/1.73 m?? [facility] Comment: The eGFR was calculated using the CKD-EP I equation. As with all creatinine based estimates of kidney function, eGFR values calculated with the CKD-EPI equation are not accurate in patients wi th acute kidney failure, extremes of body mass or the acutely ill. http://[employer]/[facility]SAnkf Specimen Anatomical Collection Method Collection Time Receive d Time (Source) Location / / Volume Laterality Blood specimen 01/14/2018 12:43 8 1:09 (specimen) PM EDT PM EDT Resulting Agency Comment Spec In Lab Virgilio Navarro MD CHEMISTRY ORDERABLES Performing Organization Address City/State/[facility] [place] [address] documented in this encounter Visit Diagnoses Diagnosis CLL (chronic lymphocytic leukemia) Chronic lymphoid leukemia, without menti on of having achieved remission documented in this encounter Care Teams Care Connector Relationship Specialty Start Date End Date Ingrid Espinosa APRN PCP - General Internal Medicine 07/28/17 [address] [place] [address] documented as of this encounter
--- OUTSIDE RECORDS SUMMARY | 2021-12-21 00:36 | XMS_ITS | Encounter Summary ---
:1950 Author Organization [facility] [place] [address] Care Team Providers Name Role Phone Ingrid Espinosa Uriel PALACIOS Primary Care Provider Encounter Details Date Type Department Care Team Description 10/09/2017 Hospital Encounter Hematology and Lymphoc ytosis; Oncology at [facility] CLL (chronic lymphocytic kami kemia) [place] [address] Social History Tobacco Use Types Packs/Day [...] 0 tablet mouth daily. OXYGEN-AIR DELIVERY by [facility].(Non-Drug; 0 SYSTEMS (HORIZON NASAL Combo Route) route CPAP SYSTEM [facility]) nightly. levothyroxine Take 37.5 mcg by 0 (SYNTHROID) 25 mcg mouth daily. tablet melatonin 3 mg Tablet Take by mouth. 0 06/13/2020 gabapentin (NEURONTIN) TAKE 1 CAPSULE 90 capsule 1 8 04/23/2018 300 mg Capsule NIGHTLY diphenhydrAMINE Take 50 mg by mouth 0 04/08/2018 (BENADRYL) 50 mg Capsule nightly. mometasone (NASONEX) 50 2 sprays by Nasal 0 04/08/2018 mcg/actuation Minto, route daily. Non-Aerosol meloxicam (MOBIC) 15 mg [...] Indications: fibromyalgia Fibromyalgia TENS UNITS MISC by [facility].(Non-Drug; 0 0 01/13/2019 Combo Route) route. Tens [...] Office Visit Cardiology Lizeth Frazier MD [facility] [place], [place] [address] (Wo rk) 03/18/2022 Office Visit Neurology Donovan Mayer MD [facility] NEUROLOGY DEPT. [place], [place] [address] (Wo rk) 04/24/2022 Appointment Hematology and Oncology 04/24/2022 Office Visit Hematology and Oncology Renea Navarro MD [facility] HEMATOLOGY/ONCOL OGY DEPT. [place], [place] [address] (Wo rk) documented as of this encounter Procedures Procedure Name Priority Date/Time Associated Comments Diagnosis SMEAR REVIEW REPORT Routine 10/09/2017 4:02 Resul ts for this PM EDT procedure are i n the results section. IMMUNOPHENOTYPING FLOW Routine 10/09/2017 3:04 Lymphocyt osis Results for this CYTOMETRY PM EDT CLL (chronic procedure are i n lymphocytic the results leukemia) section. PERIPHERAL SMEAR REVIEW Routine 10/09/2017 3:04 Lymphocy tosis Results for this PM EDT CLL (chronic procedure are i n lymphocytic the results leukemia) section. IMMUNOGLOBULINS, Routine 10/09/2017 3:04 Lymphocytosis Results for this QUANTITATIVE PM EDT CLL (chronic procedure are i n lymphocytic the results leukemia) section. SCAN, PERIPHERAL BLOOD Routine 10/09/2017 3:04 Re sults for this PM EDT procedure are i n the results section. HEMOGRAM Routine 10/09/2017 3:04 Lymphocytosis Results for this PM EDT CLL (chronic procedure are i n lymphocytic the results leukemia) section. DIFFERENTIAL, AUTOMATED Routine 10/09/2017 3:04 Lymphocy tosis Results for this PM EDT CLL (chronic procedure are i n lymphocytic the results leukemia) section. CBC (WITH DIFF) Routine 10/09/2017 3:04 Lymphocytosis PM EDT CLL (chronic lymphocytic leukemia) PROTEIN ELECTROPHORESIS, Routine 10/09/2017 3:04 Lymphoc ytosis Results for this SERUM PM EDT CLL (chronic procedure are i n lymphocytic the results leukemia) section. LACTATE DEHYDROGENASE Routine 10/09/2017 3:04 Lymphocyto sis Results for this PM EDT CLL (chronic procedure are i n lymphocytic the results leukemia) section. BETA 2 MICROGLOBULIN, Routine 10/09/2017 3:04 Lymphocyto sis Results for this SERUM PM EDT CLL (chronic procedure are i n lymphocytic the results leukemia) section. COMPREHENSIVE METABOLIC Routine 10/09/2017 3:04 Lymphocy tosis Results for this PANEL (NON-FASTING) PM EDT CLL (chronic procedur e are in lymphocytic the results leukemia) section. documented in this encounter Results Smear Review Report (10/09/2017 4:02 PM EDT) Component Value Ref Test Analysis Performed At [facility] Range Method Time Signature Smear Review [id number] ? Location: [address] [place] [address] The signing pathologist has (i) examined the relevant preparation(s) for the [facility] specimen(s) and (ii) rendered or confirmed the diagnosis(es) . HOSPITAL LABORATORY . ?Bebeto w Cytometry DIAGNOSIS Peripheral blood, flow cytometry: - Monoclonal, kappa-restricted CD5+ CD23+ B-cell population present (see ??Discussion). Electronically signed by: ??Lucas WHITLEY, Angelica Daley Verified: ??10/10/2017 ?Hematopathologist Performed at: ??-[facility] Dept. of Pathology, [place], [place] DISCUSSION Approximately 82% of lymphocytes (65% of total cells) in this peripheral blood specimen are monoclonal, ka ppa-restricted B-cells with the immunophenotype, CD19+ CD20+ CD5+ CD23+ CD10- FMC7 - CD79b+. The neoplastic B-cells are ZAP70+ and show partial expression of CD38 (~25%). CD3+ T-cells comprise approximately 16% of lymphocytes (13% of total c ells) with an appropriate mixture of mature CD4+ and CD8+ forms (CD4:CD8 ratio a pproximately 0.9) without aberrant loss or expression of burgos T-cell antigens. CD3-/C D56+ NK cells constitute 1% of lymphocytes (1% of total cells). In summary, these i mmunophenotypic findings are consistent with involvement of the peripheral blood by a monoclonal B-cell population. The lymphocytes are small by forward scatter cr iteria (about the size of normal lymphocytes) and the immunophenotype and morphol ogic appearance (see separate report) are most consistent with chronic lymphocytic leukemia (CLL). Flow analysis is an ancillar y study. A definite diagnosis requires correlation with the morphologic features of this process and if necessary, correlation with other ancillary studies like immu nohistochemistry, enzyme cytochemistry and/or cyto/ molecular genetics. This test was developed and its performance roderick acteristics determined by the Clinical Flow Cytometry Lab oratory at [facility]. It has not been cleared or approve d by the U.S. Food and Drug Administration. ??The FDA has determined that such cleara nce or approval is not necessary. ??This test is used for clinical purposes. ??It denzel uld not be regarded as investigational or for research. This laboratory is certifie d under the Clinical Laboratory Improvement Act of 1988 (CLIA) as qualified to perform high complexity clinic al laboratory testing. SPECIMEN PROCESSING [id number] Cells for immunophenotypic a nalysis were derived from peripheral blood. ??CD45 vs side scatter gating was utilized to identify a lymphoid analysis region that comprises approximately 78-81% of all cells. The following markers were a ssessed: CD2, CD3, CD4, CD5, CD7, CD8, CD10, CD19, CD20, CD23, CD38, CD45, CD56, CD79b, FM C-7, (c)ZAP-70, kappa light chain, and lambda light chain. CLINICAL INFORMATION 67 yo woman with lymphocytosis. ? Sm ear Review DIAGNOSIS Peripheral blood, smear review: - Lymphocytosis consistent with chronic lymphocytic leukemia (see . DIAGNOSIS ??Discussion). Electronically signed by: ??Lucas WHITLEY, Angelica L Verified: ??10/10/2017 ?Hematopathologist Performed at: ??-[facility] Dept. of Pathology, [place], [place] DISCUSSION Flow cytometry immunophenoty pe analysis was performed concurrently (see separate report) and identified a mo noclonal, kappa-restricted CD5+ CD23+ B-cell population consistent with chronic lymphocytic leukemia. ADDITIONAL STUDIES The white blood cell count i s 20.6K/uL. The predominating cells are small lymphocytes with clumped nuclear chroma tin, inconspicuous nucleoli and scant cytoplasm. Smudge cells are present but there is no increase in prolymphocytes or large cells. There is no absolute neutropenia (ANC = 2.9K/uL) and neutrophils have normal morphology. No anemia is evident (Hgb 1 3.6 g/dL; MCV 90.0 fL), and RBC morphology is kendell. There is no increase in rod istocytes or spherocytes, and no rouleaux formation is noted. Platelets are nor mal in number (161K/uL) and exhibit normal morphologic features. No blasts are appreciated. Neutrophils/bands 14%, Lymph ocytes 81%, Monocytes 3%, Eosinophils 1%, Basophils 0%, Immature granulocytes 0%, Erythroid precursors 0/100 WBC. CLINICAL INFORMATION 67 yo woman with lymphocytos is. ?? Hematopathologist review of CBC and peripheral blood smear requested for evaluation. Specimen (Source) Anatomical Collection Method Collection Time Re ceived Time Location / / Volume Laterality 10/09/2017 4:02 PM EDT Virgilio Navarro MD PATHOLOGY/CYTOLOGY ORDERABLE S Performing Organization Address City/State/[place] [address] Scan, Peripheral Blood (10/09/2017 3:04 PM EDT) Analysis Performed At Patho logist Time Signature Plat Estimate Normal [facility] RBC Morphology Normal [facility] Smudge Cells Present [facility] Specimen Anatomical Collection Method Collection Time Receive d Time (Source) Location / / Volume Laterality Blood specimen 10/09/2017 3:04 PM 018 3:15 (specimen) EDT PM EDT Resulting Agency Comment Spec In Lab Virgilio Navarro MD HEMATOLOGY ORDERABLES Performing Organization Address City/State/[place] [address] (ABNORMAL) Differential, Automated (10/09/2017 3:04 PM EDT) athologist Signature Neutrophils % 14.2 % [facility] Neutr Abs (ANC) 2.93 1.70 - [facility] 6.10 [facility] x10(3)/[facility] LABORATORY Lymphocytes % 81.4 % [facility] Comment: Abnormal forms present. Lymphocytes Abs 16.8 (H) 0.9 - 3.2 x10(3)/[facility] LABORATORY Monocytes % 3.0 % [facility] Monocyte Abs 0.6 0.3 - 0.9 x10(3)/[facility] LABORATORY Eosinophils % 0.9 % [facility] LABORATORY Eosinophils Abs 0.2 0.0 - 0.4 x10(3)/[facility] LABORATORY Basophils % 0.4 % [facility] LABORATORY Basophils Abs 0.1 0.0 - 0.1 x10(3)/[facility] LABORATORY Immature Gran % 0.10 % [facility] Comment: Immature granulocytes(IG's)percentage an d absolute count will include metamyelocytes, myelocytes, and promyelo cytes. Blood smears from CBCs yielding IG's will be scanned manually for concor dance. If this scan disagrees with the automated IG or if promyelocytes are not ed, a manual differential will be performed. Ebtty Gran Abs 0.03 0.00 - 0.04 x10(3)/[facility] LABORATORY Specimen Anatomical Collection Method Collection Time Receive d Time (Source) Location / / Volume Laterality Blood specimen 10/09/2017 3:04 PM 018 3:15 (specimen) EDT PM EDT Resulting Agency Comment Spec In Lab Virgilio Navarro MD HEMATOLOGY ORDERABLES Performing Organization Address City/State/[place] [address] (ABNORMAL) Hemogram (10/09/2017 3:04 PM EDT) [facility] gist Method Time Signature WBC 20.6 (H) 4.0 - 9.5 [facility](3[facility] LABORATORY RBC 4.51 4.00 - LI[facility] [place] 5.21 [facility] x10(6)/[facility] LABORATORY Hemoglobin 13.6 11.7 - [facility] 15.5 gm/dL [facility] LAB[facility]ATORY Hematocrit 40.6 35.7 - [facility] 45.8 % [facility] MCV 90.0 82.6 - [facility] 94.4 [facility] LABORATORY MCH 30.2 27.1 - LI[facility] [place] 32.0 pg [facility] LABORATORY MCHC 33.5 31.7 - [facility] [place] 35.0 gm/dL [facility] LABORATORY Platelets 161 145 - 357 [facility] x10(3)/[facility] LABORATORY RDWSD 43.5 37.0 - LIZ[facility] [place] 46.0 [facility] LABORATORY RDWCV 13.2 11.5 - [facility] [place] 14.1 % [facility] LABORATORY MPV 10.1 7.6 - 12.9 [facility] LABORATORY nRBC % Auto 0.1 % [facility] LABORATORY nRBC Abs Auto 0.030 (H) 0.000 - LI[facility] [place] 0.000 [facility] x10(3)/[facility] LABORATORY Specimen Anatomical Collection Method Collection Time Receive d Time (Source) Location / / Volume Laterality Blood specimen 10/09/2017 3:04 PM 018 3:15 (specimen) EDT PM EDT Resulting Agency Comment Spec In Lab Virgilio Navarro MD HEMATOLOGY ORDERABLES Performing Organization Address City/State/[place] [address] (ABNORMAL) Immunoglobulins, Quantitative (10/09/2017 3:04 PM EDT) P athologist Signature IgG 612 (L) 700 - 1,600 [facility] mg/dL [facility] IgA 152 70 - 400 [facility] mg/dL [facility] IgM 14 (L) 40 - 230 [facility] mg/dL [facility] LABOR[facility]ORY Specimen Anatomical Collection Method Collection Time Receive d Time (Source) Location / / Volume Laterality Blood specimen 10/09/2017 3:04 PM 018 3:15 (specimen) EDT PM EDT Resulting Agency Comment Spec In Lab Virgilio Navarro MD CHEMISTRY ORDERABLES Performing Organization Address City/[facility]/ZIP Code Phon e Number [address] Protein Electrophoresis, serum (10/09/2017 3:04 PM EDT) Patholo gist Method Time Signature Total Prot 6.4 6.1 - 8.0 [facility] [place] Elec gm/dL [facility] LABORATORY Albumin Elect 4.36 3.60 - [facility] [place] 6.00 [facility] LABORATORY Alpha1-Globul 0.15 0.10 - LIZETH [place]OV[place] in 0.30 [facility] LABORATORY Alpha2-Globul 0.64 0.40 - LIZETH [place]OVEV[place] in 0.90 [facility] LABORATORY Beta Globulin 0.75 0.50 - [facility] 1.00 [facility] LABOR[facility]ORY Gamma 0.50 0.50 - [facility] Globulin 1.30 [facility] LABORATORY M1 Band None [facility] Detected [facility] LABORATORY Specimen Anatomical Collection Method Collection Time Receive d Time (Source) Location / / Volume Laterality Blood specimen 10/09/2017 3:04 PM 018 3:15 (specimen) EDT PM EDT Resulting Agency Comment Spec In Lab Virgilio Navarro MD CHEMISTRY ORDERABLES Performing Organization Address City/[facility]/ZIP Code Phon e Number [address] Beta 2 Microglobulin, serum (10/09/2017 3:04 PM EDT) athologist Signature Beta2 2.2 0.8 - 2.2 [facility] Microglob mg/[facility] LABORATORY Specimen Anatomical Collection Method Collection Time Receive d Time (Source) Location / / Volume Laterality Blood specimen 10/09/2017 3:04 PM 018 3:15 (specimen) EDT PM EDT Resulting Agency Comment Spec In Lab Virgilio Navarro MD CHEMISTRY ORDERABLES Performing Organization Address City/[facility]/ZIP [facility] Phon e Number [address] Lactate Dehydrogenase (10/09/2017 3:04 PM EDT) athologist Signature LDH 204 110 - 220 [facility] Specimen Anatomical Collection Method Collection Time Receive d Time (Source) Location / / Volume Laterality Blood specimen 10/09/2017 3:04 PM 018 3:15 (specimen) EDT PM EDT Resulting Agency Comment Spec In Lab Virgilio Navarro MD CHEMISTRY ORDERABLES Performing Organization Address City/[facility] Phon e Number [address] Peripheral Smear Review (10/09/2017 3:04 PM EDT) [facility] gist Method Time Signature Periph Smear See [facility] LABORATORY Comment: When completed by the Pathologist, repor [id number] will display under Hematopathology Reports. Specimen Anatomical Collection Method Collection Time Receive d Time (Source) Location / / Volume Laterality Blood specimen 10/09/2017 3:04 PM 018 3:15 (specimen) EDT PM EDT Resulting Agency Comment Spec In Lab Virgilio Navarro MD HEMATOLOGY ORDERABLES Performing Organization Address City/[facility] Phon e Number [address] Immunophenotyping Flow Cytometry (10/09/2017 3:04 PM EDT) Component Value Ref Test Analysis Performed At [facility] gist Range Method Time Signature Immunophenotyping See LIZETH Hubert [facility] LABORATORY Comment: When completed by the Pathologist, the F low Cytometry Report ([id number]) will display under the Pathology Result s section within eDH. Specimen Anatomical Collection Method Collection Time Receive d Time (Source) Location / / Volume Laterality Specimen of 10/09/2017 3:04 PM 8 3:15 unknown material EDT PM EDT (specimen) Resulting Agency Comment Spec In Lab Virgilio Navarro MD HEMATOLOGY ORDERABLES Performing Organization Address City/State/[place] [address] (ABNORMAL) Comprehensive metabolic panel (non-fasting) (10/09/2017 3:04 PM EDT) athologist Signature Glucose Lvl 101 65 - 199 [facility] mg/dL [facility] LABORATORY Comment: Diabetes: >=200 mg/dL plus symp toms BUN 13 8 - 18 mg/dL [facility] LABORATORY Creatinine 0.69 (L) 0.70 - 1.20 mg/dL [facility] LABORATORY Sodium 143 135 - 145 mmol/L [facility] LABORATORY Potassium 4.2 3.5 - 5.0 mmol/L [facility] LABORATORY Comment: Please note: ??Patients with WBC >100,00 0 may have falsely elevated Potassium levels. ??For accurate Potassium quantif ication in these patients send serum separator tube (gold top) for subsequent determinations. ??Contact the Clinical Chemistry Laboratory if there are any qu estions. Chloride 105 98 - 107 mmol/L [facility] LABOR[facility]ORY CO2 26 22 - 31 mmol/L [facility] Anion Gap 12 5 - 15 mmol/L [facility]ORY Calcium 9.3 8.5 - 10.5 mg/dL [facility] LABORATORY Total Protein 6.7 6.1 - 8.0 gm/dL [facility] LABORATORY Albumin 4.4 3.2 - 5.2 gm/dL [facility] LABOR[facility] AST 23 0 - 30 unit/L [facility] ALT 15 0 - 30 unit/L [facility]ORY Alk Phos 74 40 - 104 unit/L [facility] Total Bilirubin 0.3 0.2 - 1.3 mg/dL [facility] LABORATORY Estimated GFR >60 >=60 [facility] LABORATORY Comment: The reported eGFR should be multiplied b y 1.2 for patients. The MDRD is not an appropriate measure o f renal function for patients with body mass extremes or in patients with acute kidney failure. http://Kimbia/DHnkdep http://Kimbia/DHMCnkf Specimen Anatomical Collection Method Collection Time Receive d Time (Source) Location / / Volume Laterality Blood specimen 10/09/2017 3:04 PM 018 3:15 (specimen) EDT PM EDT Resulting Agency Comment Spec In Lab Virgilio Navarro MD CHEMISTRY ORDERABLES Performing Organization Address City/State/[place] [address] documented in this encounter Visit Diagnoses Diagnosis Lymphocytosis Lymphocytosis (symptomatic) CLL (chronic lymphocytic leukemia) Chronic lymphoid leukemia, without menti on of having achieved remission documented in this encounter Care Teams Electrode Cleaner Relationship Specialty Start Date End Date Ingrid Espinosa APRN PCP - General Internal Medicine 07/28/17 [address] [place] [address] documented as of this encounter
--- OUTSIDE RECORDS SUMMARY | 2021-12-21 00:36 | XMS_ITS | Encounter Summary ---
:1950 Author Organization [facility] [place] [address] Care Team Providers Name Role Phone Ingrid Espinosa APRN Primary Care Provider Reason for Referral Diagnostic Test (Routine) - Specialty Diagnoses / Procedures Referred By Contact Refer red To Contact Radiology Diagnoses Diarrhea, unspecified type Suri Newton [facility] Rad Nuclear Med Procedures NM Octre[employer] Admin [facility] LABORATORY ASSISTANT [facility] [place] [address] [place] [address] Referral ID Status Reason Start Date Expiration Visits Visits Date Requested Authorized [id number] Specialty 05/29/2018 05/29/2019 1 1 Service Requested Encounter Details Date Type Department Care Team Description 05/28/2018 Orders Only Gastro[place]ology at [facility] Carlos Newton [facility] Kade [place] [address] [facility] [phone] [place] [address] Social History Tobacco Use Types Packs/Day Years [...] 03/06/2022 Office Visit Cardiology Lizeth Frazier MD [facility] [place], [place] [address] (Wo rk) 03/18/2022 Office Visit Neurology Donovan Mayer MD [facility] NEUROLOGY DEPT. [place], [place] [address] (Wo rk) 04/24/2022 Appointment Hematology and Oncology 04/24/2022 Office Visit Hematology and Oncology Renea Navarro MD [facility] HEMATOLOGY/ONCOL OGY DEPT. [place], [place] 0[address] (Wo rk) documented as of this encounter Results NM [employer] Admin (06/15/2018 10:30 AM EST) Specimen (Source) Anatomical Location Collection Method / Collectio n Time Received Time / Laterality Volume Narrative [facility] - 06/15/2018 10:30 AM EST This exam is auto-finalizing. It is for billing only. See paired order for result. Suri Newton APRN IMG NM ORDERABLES Performing Organization Address City/State/ZIP Code Phon e Number [place], [place] documented in this encounter Visit Diagnoses Diagnosis Diarrhea, unspecified type Diarrhea, unspecified type documented in this encounter Care Teams Machine Sprayer Relationship Specialty Start Date End Date Ingrid Espinosa APRN PCP - General Internal Medicine 07/28/[address] [place] [address] documented as of this encounter
--- OUTSIDE RECORDS SUMMARY | 2021-12-21 00:36 | XMS_ITS | Encounter Summary ---
:1950 Author Organization [facility] [place] [address] Care Team Providers Name Role Phone Ingrid Espinosa APRN Primary Care Provider Reason for Visit Reason Comments Advice Only Consultation (SALLY) - Closed Specialty Diagnoses / Procedures Referred By Contact Refer red To Contact Hematology and Diagnoses elevated lymphocyte count, Leukocytosis unspecified type, periaortic lymphadenopathy, inguinal lymphadenopathy Ingrid Espinosa, [facility] Hem Onc 3k Oncology FOOD SERVICE [address] [phone] Fax: Referral ID Status Reason Start Date Expiration Date Visits V isits Requested Authorized [id number] Closed Consult, 09/25/2017 09/25/2018 1 1 [facility] Encounter Details Date Type Department Care Team Description 10/09/2017 Office Visit Hematology and [place], Lymphocytosi s; Oncology at [facility] MD Virgilio CLL (chronic lymphocytic leukemia) [facility] [place]Y/ONCOLOG [id number] Y DEPT. [phone] [place], [place] [address] Social History Tobacco Use Types [...] Sign Reading Time Taken Comments Blood Pressure 175/80 10/09/2017 1:37 PM EDT Pulse 78 10/09/2017 1:37 PM EDT Temperature 36.7 ??C (98.1 ??F) 10/09/2017 1:37 PM EDT Respiratory Rate 20 10/09/2017 1:37 PM EDT Oxygen Saturation 98% 10/09/2017 1:37 PM EDT Inhaled Oxygen - - Concentration Weight 117.5 kg (259 lb) 10/09/2017 1:37 PM R ankle bra ce and EDT refused to take shoes off Height 176.2 cm (5' 9.37) 10/09/2017 1:37 PM EDT Body Mass Index 37.84 10/09/2017 1:37 PM EDT documented in this encounter Progress Notes Virgilio Navarro MD - 10/09/2017 1:30 PM EDT Images from the original note were not included. HEMATOLOGY CONSULTATION VISIT NOTE REASON FOR VISIT: Saundra Blanton is a 67 y.o. female referred by Ingrid Espinosa APRN for evaluationof lymphocytosis and lymphadenopathy. The history is obtained from the patient, and I also have reviewed all the available medical recordsprovided by the referring physician and located in the electronic medical records. HISTORY OF PRESENT ILLNESS Saundra Blanton is a 67 y.o. female with medical Hx of hypothyroidism, CARLOS, morbid obesity, carcinoidtumor of stomach, b/l hip OA, GERD, hypertension, hyperlipidemia, h/o DVT in the period (not currently anticoagulated), chronic low back and right lower extremity pain, s/p lumbar [id number], followed by pain management at , bilateral angiomyolipomas,being followed by urology at [facility], presenting for evaluation of lymphocytosis and lymphadenopathy. ?? Presentation: Referred to have further heme evaluation of the incidentally noted TIAN and lymphocytosis. ?? MRI spine (03/04/17): Incidental finding ofenlarged periaortic and iliac chain lymph nodes ?? Labs on 09/24/17 revealed WBC of 20.5, with 84% lymphocytes (ALC of 17.4), Hgb of 14.8, MCV: 90, Plt count: 159. ?? Prior CBC on 07/16/17 revealed WBC of 19.9. ?? Relevant PMHx/ risk factors: ?? H/o carcinoid tumor of stomach, resected at [facility] in 2006. Pt reports that it was very small. She had annuar EGDs for 3 years and then Q3y. Recently had EGD (08/19/17) by Isha Lutz, [facility] surgical associated, at [facility]. EGD per him showed few polyps, which were biopsied and there is no recurrence of carcinoid on these. She recommended annual EGDs. ?? Work up ?? Imaging: CT a/p: (07/22/17): mildly enlarged retroperitoneal , b/l iliac, inguinal LNs, unchanged compared to CT on 03/30/17 (the size of LNs not mentioned); mild splenomegaly at 13.2cm; b/l renal angiomyolipomas stable compared to 03/2017, b/l non obstructing renal stones; In office today, Saundrajessika Castellanoey is here for new pt visit. She reports that she feels pretty healthy. 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 She can easily walk 1.5 mile; She walks slowly b'se of her back and leg pain. - h/o chronic diarrhea :now, once or twice a week, not more than 3 BMs a day, watery to soft; No blood or mucus; does not take any stool softeners; - No infections in the past 6months - No fevers, night sweats, no weight loss; - No swellings that she noticed; - She received L4-5 steroid injection recently for back pain; - No active cardiac/resp/GI issues ; Rest [...] Hypercoagulable state D68.59 ??? Gastric polyp K31.7 MEDICATIONS ??? acetaminophen/diphenhydramine (TYLENOL PM ORAL) ??? melatonin 3 mg Tablet ??? gabapentin (NEURONTIN) 300 mg Capsule ??? diphenhydrAMINE (BENADRYL) 50 mg Capsule ??? cholecalciferol, Vitamin D3, 1,000 unit Tablet ??? meloxicam (MOBIC) 15 mg Tablet ??? Calcium 500 mg Tab ??? nystatin (MYCOSTATIN) powder ??? loratadine (CLARITIN) 10 mg tablet ??? ketoconazole (NIZORAL) 2 % cream ??? acetaminophen (TYLENOL) 500 mg tablet ??? DULoxetine (CYMBALTA) 60 mg capsule ??? multivitamin (THERAGRAN) tablet ??? OXYGEN-AIR DELIVERY SYSTEMS (HORIZON NASAL CPAP SYSTEM MISC) ??? TENS UNITS MISC ??? pantoprazole (PROTONIX) 40 mg tablet ??? simvastatin (ZOCOR) 20 mg tablet ??? levothyroxine (SYNTHROID) 25 mcg tablet ??? valsartan (DIOVAN) 160 mg tablet ??? mometasone (NASONEX) 50 mcg/actuation [place], Non-Aerosol ??? fluticasone (FLONASE) 50 mcg/actuation nasal spray ??? OXYcodone-acetaminophen (PERCOCET) 5-325 mg per tablet ??? desonide (DESOWEN) 0.05 % cream ??? [...] Years of education: N/A Occupational History ??? 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 Smoking status: Never Smoker ??? Smokeless tobacco: Never Used ??? Alcohol use Yes Comment: very rare use, denies ETOH abuse ??? Drug use: No Comment: denies illicit drug use or abuse ??? Sexual activity: Not on file Comment: deferred Other Topics Concern ??? 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 [facility] Contact Permission:?? OK to leave message on machine. ?? FAMILY HISTORY Family History Problem Relation Age of Onset ??? Heart Disease Mother ??? Arthritis Mother ??? Heart Disease Father ??? Arthritis Father ??? Arthritis Sister ??? Depression Brother ?? One daughter: she has Silva Danlos syn; PHYSICAL EXAM VITAL SIGNS: Blood pressure 175/80, pulse 78, temperature 36.7 ??C (98.1 ??F), temperature source Temporal, resp. rate 20, height 176.2 cm (5' 9.37), weight 117.5 kg (259 lb), SpO2 98 %. ECOG PS: 1 GENERAL: [...] deficits; PSYCHIATRIC: normal affect and mood LABORATORY No results found for this or any previous visit (from the past 72 hour(s)). RADIOLOGY - None ASSESSMENT & PLANS Saundra Blanton is a 67 y.o. female with medical Hx of hypothyroidism, CARLOS, morbid obesity, carcinoidtumor of stomach, b/l hip OA, GERD, hypertension, hyperlipidemia, h/o DVT in the period (not currently anticoagulated), chronic low back and right lower extremity pain, s/p lumbar [id number], followed by pain management at , bilateral angiomyolipomas,being followed by urology at [facility], presenting for evaluation of lymphocytosis and incidetnally noted retroperitoneal, inguinal, iliac lymphadenopathy. I discussed with Ms. Blanton that her lymphocytosis with smudge cells on peripheral blood is highly suspicious for CLL. I reviewed the etiology and pathophysiology [...] recommended. discussed the rationale for this approach. I recommended her some labs for confirmation of my clinical suspicion for CLL # Chronic back pain and RLE pain: follows with pain management; # Carcinoid tumor of stomach: Has regular EGDs, being followed by GI; # Angiomyolipomas : being followed by urology; f/up in 2 years with US recommended # Nephrolithiasis (non obstructing): Evaluated by Uro and advised to drink plenty of fluids; IN SUMMARY: - CBC,CMP, LDH, B2MG, Immunoflow, peripheral smear review, SPEP, SFLCs, quant Igs. FISH panel is notcovered by her insurance. So, we will hold it for now; - Will get the CT report from 03/20/17 (done at [facility]). - I will Saundra Blanton with the results for further plans. I reviewed my impression and recommendations with Saundra Omar Harvinder and answered all the questions to her satisfaction. she understands the plan, and knows that she can contact us at any time should any new symptoms, concerns or questions arise. Thank you for giving me the opportunity to participate in this patient's care. Please don't hesitateto contact me if you'd like to discuss this patient's situation further. Virgilio Navarro MD Fractionating Still Operatorsenior business development manager Section of Hematology/Oncology [facility] CC: Ingrid Espinosa APRN documented in this encounter Plan of Treatment Upcoming Encounters Date Type Specialty Care Team Description 03/06/2022 Office Visit Cardiology Lizeth Frazier MD [facility] [place] [address] (Wo rk) 03/18/2022 Office Visit Neurology Donovan Mayer MD [facility] NEUROLOGY DEPT. [place], [place] [address] (Wo rk) 04/24/2022 Appointment Hematology and Oncology 04/24/2022 Office Visit Hematology and Oncology Renea Navarro MD [facility] HEMATOLOGY/ONCOL CLAUDE DEPT. [place], [place] [address] (Wo rk) documented as of this encounter Results (ABNORMAL) Immunoglobulins, Quantitative (10/09/2017 3:04 PM EDT) athologist Signature IgG 612 (L) 700 - 1,600 LIZETH [place] mg/dL [facility] IgA 152 70 - 400 LIZETH [place] mg/dL [facility] IgM 14 (L) 40 - 230 LIZETH [place] mg/dL [facility] Specimen Anatomical Collection Method Collection Time Receive d Time (Source) Location / / Volume Laterality Blood specimen 10/09/2017 3:04 PM 018 3:15 (specimen) EDT PM EDT Resulting Agency Comment Spec In Lab Virgilio Navarro MD CHEMISTRY ORDERABLES Performing Organization Address City/State/ZIP Code Phon e Number [address] Protein Electrophoresis, serum (10/09/2017 3:04 PM EDT) Patholo gist Method Time Signature Total Prot 6.4 6.1 - 8.0 LIZETH [place] Elec gm/dL [facility] Albumin Elect 4.36 3.60 - [facility] [place] 6.00 [facility] LABORATORY Alpha1-Globul 0.15 0.10 - LIZETH [place] in 0.30 [facility] LABORATORY Alpha2-Globul 0.64 0.40 - LIZETH [place] in 0.90 [facility] LABORATORY Beta Globulin 0.75 0.50 - [facility] 1.00 [facility] LABORATORY Gamma 0.50 0.50 - [facility] Globulin 1.30 [facility] LABORATORY M1 Band None [facility] Detected [facility] Specimen Anatomical Collection Method Collection Time Receive d Time (Source) Location / / Volume Laterality Blood specimen 10/09/2017 3:04 PM 018 3:15 (specimen) EDT PM EDT Resulting Agency Comment Spec In Lab Virgilio Navarro MD CHEMISTRY ORDERABLES Performing Organization Address City/[facility]/ZIP Code Phon e Number [address] Beta 2 Microglobulin, serum (10/09/2017 3:04 PM EDT) P athologist Signature Beta2 2.2 0.8 - 2.2 [facility] Microglob mg/L [facility] Specimen Anatomical Collection Method Collection Time Receive d Time (Source) Location / / Volume Laterality Blood specimen 10/09/2017 3:04 PM 018 3:15 (specimen) EDT PM EDT Resulting Agency Comment Spec In Lab Virgilio Navarro MD CHEMISTRY ORDERABLES Performing Organization Address City/State/ZIP Code Phon e Number [address] Lactate Dehydrogenase (10/09/2017 3:04 PM EDT) P athologist Signature LDH 204 110 - 220 [facility] unit/L [facility] Specimen Anatomical Collection Method Collection Time Receive d Time (Source) Location / / Volume Laterality Blood specimen 10/09/2017 3:04 PM 018 3:15 (specimen) EDT PM EDT Resulting Agency Comment Spec In Lab Virgilio Navarro MD CHEMISTRY ORDERABLES Performing Organization Address City/[facility]/ZIP Code Phon e Number [address] Peripheral Smear Review (10/09/2017 3:04 PM EDT) [facility] gist Method Time Signature Periph Smear See Comment [facility] LABORATORY Comment: When completed by the Pathologist, repor t [id number] will display under Hematopathology Reports. Specimen Anatomical Collection Method Collection Time Receive d Time (Source) Location / / Volume Laterality Blood specimen 10/09/2017 3:04 PM 018 3:15 (specimen) EDT PM EDT Resulting Agency Comment Spec In Lab Virgilio Navarro MD HEMATOLOGY ORDERABLES Performing Organization Address City/[facility]/ZIP Code Phon e Number [address] Immunophenotyping Flow Cytometry (10/09/2017 3:04 PM EDT) Component Value Ref Test Analysis Performed At [facility] gist Range Method Time Signature Immunophenotyping See LIZETH Flow [facility] LABORATORY Comment: When completed by the Pathologist, the F low Cytometry Report ([id number]) will display under the Pathology Result s section within eDH. Specimen Anatomical Collection Method Collection Time Receive d Time (Source) Location / / Volume Laterality Specimen of 10/09/2017 3:04 PM 8 3:15 unknown material EDT PM EDT (specimen) Resulting Agency Comment Spec In Lab Virgilio Navarro MD HEMATOLOGY ORDERABLES Performing Organization Address City/[facility]/ZIP [place] [address] (ABNORMAL) Comprehensive metabolic panel (non-fasting) (10/09/2017 3:04 PM EDT) athologist Signature Glucose Lvl 101 65 - 199 [facility] mg/dL [facility] Comment: Diabetes: >=200 mg/dL plus symp toms BUN 13 8 - 18 mg/dL [facility] Creatinine 0.69 (L) 0.70 - 1.20 mg/dL [facility] Sodium 143 135 - 145 mmol/L [facility] Potassium 4.2 3.5 - 5.0 mmol/L [facility] Comment: Please note: ??Patients with WBC >100,00 0 may have falsely elevated Potassium levels. ??For accurate Potassium quantif ication in these patients send serum separator tube (gold top) for subsequent determinations. ??Contact the Clinical Chemistry Laboratory if there are any qu estions. Chloride 105 98 - 107 mmol/L [facility] CO2 26 22 - 31 mmol/L [facility] Anion Gap 12 5 - 15 mmol/L [facility] Calcium 9.3 8.5 - 10.5 mg/dL [facility] Total Protein 6.7 6.1 - 8.0 gm/dL [facility] Albumin 4.4 3.2 - 5.2 gm/dL [facility] AST 23 0 - 30 unit/L [facility] ALT 15 0 - 30 unit/L [facility] Alk Phos 74 40 - 104 unit/L [facility] Total Bilirubin 0.3 0.2 - 1.3 mg/dL [facility] Estimated GFR >60 >=60 [facility] Comment: The reported eGFR should be multiplied b y 1.2 for patients. The MDRD is not an appropriate measure o f renal function for patients with body mass extremes or in patients with acute kidney failure. http://Microdermis/DHnkdep http://Microdermis/DHMCnkf Specimen Anatomical Collection Method Collection Time Receive d Time (Source) Location / / Volume Laterality Blood specimen 10/09/2017 3:04 PM 018 3:15 (specimen) EDT PM EDT Resulting Agency Comment Spec In Lab Virgilio Navarro MD CHEMISTRY ORDERABLES Performing Organization Address City/State/ZIP [place] [address] documented in this encounter Visit Diagnoses Diagnosis Lymphocytosis Lymphocytosis (symptomatic) CLL (chronic lymphocytic leukemia) Chronic lymphoid leukemia, without menti on of having achieved remission documented in this encounter Care Teams Digital Marketing Consultant Relationship Specialty Start Date End Date Ingrid Espinosa APRN PCP - General Internal Medicine 07/28/[address] [place] [address] documented as of this encounter
--- OUTSIDE RECORDS SUMMARY | 2021-12-21 00:36 | XMS_ITS | Encounter Summary ---
:1950 Author Organization [facility] [place] [address] Care Team Providers Name Role Phone Ingrid Espinosa Uriel PALACIOS Primary Care Provider Reason for Visit Reason Comments Follow-up Encounter Details Date Type Department Care Team Description 04/08/2018 Office Visit Hematology and [place], CLL (chronic lymphocytic leukemia); Oncology at [facility] MD Virgilio [facility] [address] [place] HEMATOLOGY/ONCOL [id number] OGY DEPT. [phone] [place] [address] Social History Tobacco Use Types Packs/Day Years [...] Sign Reading Time Taken Comments Blood Pressure 115/55 04/08/2018 11:20 AM EST Pulse 85 04/08/2018 11:20 AM EST Temperature 36.3 ??C (97.3 ??F) 04/08/2018 11:20 AM EST Respiratory Rate 19 04/08/2018 11:20 AM EST Oxygen Saturation 99% 04/08/2018 11:20 AM EST Inhaled Oxygen Concentration - - Weight 111.1 kg (245 lb) 04/08/2018 11:20 AM EST Height 176 cm (5' 9.29) 04/08/2018 11:20 AM EST Body Mass Index 35.88 04/08/2018 11:20 AM EST documented in this encounter Progress Notes Virgilio Navarro MD - 04/08/2018 11:30 AM EST Images from the original note were not included. HEMATOLOGY FOLLOW UP VISIT NOTE REASON FOR VISIT: Saundra Blanton is a 68 y.o. female referred by Ingrid Espinosa APRN for f/up for CLL. HEMATOLOGY PROBLEM LIST: CLL: ?? 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 CBC on 09/24/17 revealed WBC of 20.5, with 84% lymphocytes (ALC of 17.4), Hgb of 14.8, MCV: 90, Plt count: 159. She is referred to [facility] for further evaluation of the incidentally [...] 13q14.3 deletion ?? 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 female with PMH of carcinoid tumor of stomach, bilateral angiomyolipomas,being followed by urology at [facility], presenting for f/up for CLL. In office today, Saundra Blanton , she relates that she has been suffering with diarrhea since Mar 04, diarrhea varies b/n 5-3 BMs a day; no blood in the stools; - Also reports 2-3/10 abd pain in her mid abd. No n/v; - No flushing or no SOB or wheezing; - No fevers or night sweats; lost 12lbs since last seen 3 months ago; She is not eating not much, may be eating ~ 50% of her meals as she has no appetite; - No palpable swellings since last seen. - No infections since last seen; - No active cardiac/resp/GI issues ; Rest [...] H/o carcinoid tumor of stomach, resected at [facility] in 2006. Pt reports that it was very small. She had annuar EGDs for 3 years and then Q3y. Last EGD (08/19/17) [facility] showed few polyps, which were biopsied and there is no recurrence of carcinoid on these. Annual EGDs were recommended. MEDICATIONS ??? irbesartan (AVAPRO) 150 mg Tablet ??? acetaminophen/diphenhydramine (TYLENOL PM ORAL) ??? melatonin 3 mg Tablet ??? gabapentin (NEURONTIN) 300 mg Capsule ??? cholecalciferol, Vitamin D3, 1,000 unit Tablet ??? meloxicam (MOBIC) 15 mg Tablet ??? Calcium 500 mg Tab ??? DULoxetine (CYMBALTA) 60 mg capsule ??? multivitamin (THERAGRAN) tablet ??? OXYGEN-AIR DELIVERY SYSTEMS (HORIZON NASAL CPAP SYSTEM MISC) ??? pantoprazole (PROTONIX) 40 mg tablet ??? simvastatin (ZOCOR) 20 mg tablet ??? levothyroxine (SYNTHROID) 25 mcg tablet ??? colestipol (COLESTID) 1 gram Tablet ??? nystatin (MYCOSTATIN) powder ??? ketoconazole (NIZORAL) 2 % cream ??? desonide (DESOWEN) 0.05 % cream ??? acetaminophen (TYLENOL) 500 mg tablet ??? loperamide (IMMODIUM) 2 mg tablet ??? TENS UNITS MISC ALLERGIES/ADR Allergies Allergen Reactions ??? Latex Rash [...] Not on file Occupational History ??? 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 Smoking status: Never Smoker ??? Smokeless tobacco: Never Used Substance and Sexual Activity ??? Alcohol use: Yes Comment: very rare use, denies ETOH abuse ??? Drug use: No Comment: denies illicit drug use or abuse ??? Sexual activity: Not on file Comment: deferred Other Topics Concern ??? Not on file Social History Narrative ??? 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 [facility] Contact Permission:?? OK to leave message on machine. ?? FAMILY HISTORY Family History Problem Relation Age of Onset ??? Heart Disease Mother ??? Arthritis Mother ??? Heart Disease Father ??? Arthritis Father ??? Arthritis Sister ??? Depression Brother ?? One daughter: she has Silva Danlos syn; PHYSICAL EXAM VITAL SIGNS: Blood pressure 115/55, pulse 85, temperature 36.3 ??C (97.3 ??F), temperature source Temporal, resp. rate 19, height 176 cm (5' 9.29), weight 111.1 kg (245 lb), SpO2 99 %. ECOG PS: 1 [...] Recent Results (from the past 72 hour(s)) chromo report acquired Result Value Ref Range Cytogenetics Acquired Report Final Report CLL FISH Panel [id number] Specimen Type: Blood Specimen Condition: ~8.5ml Collection Date/Time: 04/08/2018 10:30 Received Date/Time: 04/08/2018 10:49 Indication: CLL ---Results--- CLL FISH panel: ?? POSITIVE for SERGO/11q22.3 deletion, and 13q14.3 deletion (see comment) ?? NEGATIVE for CCND1-IGH/t(11;14), TP53/17p13.1 deletion and trisomy 12. ---Karyotype--- nuc reyes(CCND1,IGH)x2[200],(ATMx1,TP53x2)[97/200],(H70V3w6,D18P584s7,NRDR8g0)[127/200 ] ---Preparation--- Culture Type: Direct [place] Days in Culture: N/A Banding Method: N/A Banding Level: N/A FISH Method: Interphase FISH ---Analysis--- Cultures Analyzed: N/A Metaphase Cells Counted: N/A Metaphase Cells Analyzed: N/A Metaphase Cells Karyotyped: N/A ---Interpretation--- Interphase FISH analysis using dual-color dual-fusion probes for CCND1-IGH/t(11;14)(q13;q32) ([employer] shows 0% of 200 cells with a CCND1-IG H rearrangement signal pattern. This is within acceptable reference limits (0-1.5%). Thus, there is no evidence for CCND1-IGH/t(11;14). Interphase FISH analysis using probes for the TP53/17p13.1 and SERGO/11q22.3 gene loci ([employer] shows 3% and 48.5% of 200 cells with TP53 and SERGO signal deletion patterns, respectively. These are within acceptable reference limits for TP53/17p13.1 deletion (0-6.3%) but significantly above the acceptable reference limits for SERGO/11q22.3 deletion (0-7.9%). 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 Interphase FISH analysis using probes for the D12Z3/CEP12, F45P471/13q14.3, and LAMP1/13q34 loci ([employer] shows 4.0% and 63.5% of 200 cells with chromosome 12 signal gain and 13q14.3 signal deletion patterns, respectively. These numbers are within acceptable reference limits for trisomy 12 (0-8.4%) but significantly above the acceptable reference limits for 13q14.3 deletion (0-6.3%). Thus, there is evidence for 13q14.3 deletion but no evidence for trisomy 12. ---Recommendation--- Correlation with clinical and pathological studies is suggested. ---Disclaimer--- The FISH test was developed and its performance characteristics were determined by the [facility] ([facility]) Cytogenetics Laboratory as required by CLIA???88 regulations. It has not been cleared or approved for specific uses by the U.S. Food and Drug Administration (FDA). The FDA has determined that such clearance or approve is not necessary. This test is used for clinical purposes. It should not be regarded as investigational or for research. Pursuant to the requirements of CLIA???88, this laboratory has established and verified the test???s accuracy and precision. The [facility] Cytogenetics Laboratory is certified under the CLIA???88 as qualified to perform high complexity clinical laboratory testing. Professional component performed by Kate Salas, Ph.D., [facility], [address] [place] [address] [place] (CLIA #: [id number]). 04.10.18 (Electronic Signature) Verified By: Kate Salas Lactate Dehydrogenase Result Value Ref Range LDH 214 110 - 220 unit/L Comprehensive metabolic panel (non-fasting) Result Value Ref Range Glucose Lvl 103 65 - 199 mg/dL BUN 12 8 - 18 mg/dL Creatinine 0.83 0.70 - 1.20 mg/dL Sodium 144 135 - 145 mmol/L Potassium 3.8 3.5 - 5.0 mmol/L Chloride 106 98 - 107 mmol/L CO2 26 22 - 31 mmol/L Anion Gap 12 5 - 15 mmol/L Calcium 9.8 8.5 - 10.5 mg/dL Total Protein 6.4 6.1 - 8.0 gm/dL Albumin 3.9 3.2 - 5.2 gm/dL AST 30 0 - 30 unit/L ALT 25 0 - 30 unit/L Alk Phos 89 40 - 104 unit/L Total Bilirubin 0.4 0.2 - 1.3 mg/dL eGFR 72 >=60 mL/min/1.73 m?? eGFR 83 >=60 mL/min/1.73 m?? Hemogram Result Value Ref Range WBC 21.1 (H) 4.0 - 9.5 x10(3)/mcL RBC 4.91 4.00 - 5.21 x10(6)/mcL Hemoglobin 14.3 11.7 - 15.5 gm/dL Hematocrit 43.9 35.7 - 45.8 % MCV 89.4 82.6 - 94.4 fL MCH 29.1 27.1 - 32.0 pg MCHC 32.6 31.7 - 35.0 gm/dL Platelets 109 (L) 145 - 357 x10(3)/mcL RDWSD 44.2 37.0 - 46.0 fL RDWCV 13.6 11.5 - 14.1 % MPV 10.3 7.6 - 12.9 fL nRBC % Auto 0.0 % nRBC Abs Auto 0.000 0.000 - 0.000 x10(3)/mcL Differential, Automated Result Value Ref Range Neutrophils % 15.6 % Neutr Abs (ANC) 3.29 1.70 - 6.10 x10(3)/mcL Lymphocytes % 79.5 % Lymphocytes Abs 16.7 (H) 0.9 - 3.2 x10(3)/mcL Monocytes % 3.7 % Monocyte Abs 0.8 0.3 - 0.9 x10(3)/mcL Eosinophils % 0.5 % Eosinophils Abs 0.1 0.0 - 0.4 x10(3)/mcL Basophils % 0.4 % Basophils Abs 0.1 0.0 - 0.1 x10(3)/mcL Immature Gran % 0.30 % Betty Gran Abs 0.06 (H) 0.00 - 0.04 x10(3)/mcL Scan, Peripheral Blood Result Value Ref Range Plat Estimate Decreased RBC Morphology Normal Atypical Lymph Moderate Smudge Cells Present Platelet count Result Value Ref Range Platelets 109 (L) 145 - 357 x10(3)/mcL Plat Immature % 4.7 0.0 - 7.4 % RADIOLOGY - None ASSESSMENT & PLANS Saundra Blanton is a 68 y.o. female with medical Hx of hypothyroidism, CARLOS, morbid obesity, carcinoidtumor of stomach, b/l hip OA, GERD, hypertension, hyperlipidemia, h/o DVT in the period (not currently anticoagulated), chronic low back and right lower extremity pain, s/p lumbar [id number], followed by pain management at , bilateral angiomyolipomas,being followed by urology at [facility], presenting for f/up to review the CLL diagnosis. # CLL, 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 11q23 deletion, CD38+, ZAP70 + predicts poor prognosis where as 13q deletion suggest good prognosis. I discussed the indications to treat CLL again today.: worsening anemia or thrombocytopenia, diseaserelated symptoms (ftigue, fevers, night sweats, weight loss), bulky disease (spleen >6cm below costal margin, LN>10cm), threatened end organ function due to adenopathy, etc. High ALC alone is notan indication for treatment alone unless>200-300k or symptoms related to leukostasis. CLL does not require immediate treatment and the watch and wait approach is recommended. discussed the rationale for this approach. Clinically she is asymptomatic. No palpable lymphadenopathy or HSM on exam. I reviewed the labs withher from today: ALC is stable compared to 6 months ago, H&H normal, mild thrombocytopenia with platelet count at 109K. I suspect her mild thrombocytopenia is likely related to ITP rather than a sign of advanced disease as her H/H is normal and she has no other s/s of disease progression. She does not have any indication for treatment for her CLL at this time. So I recommend watch and wait approach with labs and f/ups every 3 months. 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 She has f.up with GI later today. # Angiomyolipomas : being followed by urology; f/up in 2 years with US recommended# Chronic back pain and RLE pain: follows with pain management; # Nephrolithiasis (non obstructing): Evaluated by Uro and advised to drink plenty of fluids; IN SUMMARY: - CLL : stage I: No indication for treatment. - Mild thrombocytopenia: likely 2ry to ITP from CLL: no indication for intervention - She needs to be update on all vaccinations: Pneumococcal Q5y, annual influenza, shingrex; - Worsening diarrhea: worrisome for recurrence of carcinoid; has f/up woth GI later today - Avoid live attenuated vaccines; I reviewed my impression and recommendations with Saundra Blanton and answered all the questions to her satisfaction. she understands the plan, and knows that she can contact us at any time should any new symptoms, concerns or questions arise. Virgilio Navarro MD [facility] CC: Ingrid Espinosa APRN documented in this encounter Plan of Treatment Upcoming Encounters Date Type Specialty Care Team Description 03/06/2022 Office Visit Cardiology Lizeth Frazier MD [facility] er [phone] ([place]) 03/18/2022 Office Visit Neurology Donovan Mayer MD [facility] ER NEUROLOGY DEPT. [address] ([place] quick) 04/24/2022 Appointment Hematology and Oncology 04/24/2022 Office Visit Hematology and Oncology Renea Navarro MD [facility] er HEMATOLOGY/[place] [address] ([place]) documented as of this encounter Visit Diagnoses Diagnosis CLL (chronic lymphocytic leukemia) Chronic lymphoid leukemia, without menti on of having achieved remission Thrombocytopenia Thrombocytopenia, unspecified documented in this encounter Care Teams Inspector Firearms Relationship Specialty Start Date End Date Ingrid Espinosa APRN PCP - General Internal Medicine 07/28/[address] [place] [address] documented as of this encounter
--- OUTSIDE RECORDS SUMMARY | 2021-12-21 00:36 | XMS_ITS | Encounter Summary ---
:1950 Author Organization [facility] [place] [address] Care Team Providers Name Role Phone Ingrid Espinosa APRN Primary Care Provider Reason for Visit Consultation (Routine) - Closed Specialty Diagnoses / Procedures Referred By Contact Refer red To Contact Gastroenterology Diagnoses DIARRHEA Ingrid Espinosa APRN [facility] [address] [place] [address] [address] [place] [address] Fax: Referral ID Status Reason Start Date Expiration Date Visits V isits Requested Authorized [id number] Closed Consult, 03/24/2018 03/24/2019 1 1 [facility] Encounter Details Date Type Department Care Team Description 04/08/2018 Office Visit Gastroenterology at [facility] Sieglinger, Diarrhea, unspecified type; [facility] Kade [place] [address] [facility] [phone] [place] [address] Social History Tobacco Use Types Packs/Day Years [...] Sign Reading Time Taken Comments Blood Pressure 137/72 04/08/2018 12:56 PM EST Pulse 85 04/08/2018 12:56 PM EST Temperature - - Respiratory Rate - - Oxygen Saturation - - Inhaled Oxygen Concentration - - Weight 111.3 kg (245 lb 6.4 oz) 04/08/2018 12:56 PM EST Height 175.3 cm (5' 9) 04/08/2018 12:56 PM EST Body Mass Index 36.24 04/08/2018 12:56 PM EST documented in this encounter Patient Instructions Patient InstructionsSieglingerSuri APRN - 04/08/2018 1:00 PM EST 1. Stool studies and urine test at your convenience. Please send me a message or call me if you don't hear from me within two weeks after submitting samples. We are checking for inflammation and looking at your pancreas. 2. Low-FODMAP diet for 2-4 weeks. Gradually reintroduce one food at a time to identify triggers. ADDITIONAL RESOURCES: *The [facility] has a wonderful irina available for this diet *We also recommend a blog called [email or web address] 3. Upper endoscopy and colonoscopy with anesthesia 4. Colestipol 1 gram once daily. DO NOT TAKE WITHIN 2 HOURS of your other medications. May use imodium 1-2 tablets four times daily. 5. Labs today in 3L 6. Follow up approximately 2-3 weeks documented in this encounter Progress Notes Suri Newton APRN - 04/08/2018 1:00 PM EST ACID TESTER: Suri Newton APRN PCP: Ingrid Espinosa APRN REQUESTING PROVIDER: Ingrid Espinosa APRN REASON FOR CONSULTATION This is a 68 y.o. female with a history significant for CLL and carcinoid in 2007. I am seeing her as a new patient today in consult for diarrhea. GI PROBLEM LIST 1. DIARRHEA --STOOL CULTURE/O&P; negative/normal HPI COMMENTS Had a colonoscopy done approximately 2 years ago at [facility]. Onset of symptoms March 04. She had a cold and diarrhea. Diarrhea did not stop. She saw her PCP on the 17 of March. Stool studies were done. May have diarrhea up to 5 times in a day. Abdominal pain several days per week. Located LUQ. Dull ache. Constipation. May go up to one day without a bowel movement. [place] type# 5-7. Had negative infectious workup. Denies abdominal cramping. Fecal urgency. Fecal incontinence. Large amounts. Nocturnal symptoms. Prior to the onset of symptoms, was predisposed to looser stools. Endorses a carcinoid in 2007. Diminished appetite. Typically eats a low acid diet. Has lost 12 lbs since February. Denies dysphagia, odynophagia, and globus. Denies reflux symptoms. Excessive bloating and gas. Used a bedge. Nausea occasionally. Denies vomiting. History of meloxicam use. She was taking this for several years. Has not been taking more recently. No anemia. Taking pantoprazole 40mg once daily. Taking for years. Endorses cholecystectomy. Has not taken meloxicam in approximately one month. ROS Notable for the gastrointestinal symptoms as described above. CONSTITUTIONAL: See HPI. EYES: Denies red or painful eyes ENT: Denies oral ulcers, dysphagia, odynophagia, globus. RESPIRATORY: Denies cough, shortness of breath, wheezing CV: Murmurs. : Denies dysuria, urinary incontinence, or dyspareunia. MUSC/SKELETAL: OA. Denies chronic joint pains or history of inflammatory arthritis. INTEGUMENTARY: Denies recent skin rash or lesions. NEURO: Denies neuropathy, loss of sensation, facial drooping or unilateral weakness. PSYCH: Anxiety/depression ENDO: Denies frequent urination and excessive hunger or thirst. HEM/LYMPH: See HPI ALL/IMMUNO: Denies seasonal allergies, frequent colds. ALLERGIES Allergies Allergen Reactions ??? Latex Rash and Other (See Comments) Red welts ??? Sulfa (Sulfonamide Antibiotics) Rash ??? Adhesive Tape-Silicones Rash ??? Codeine Other (See Comments) Bad dreams ??? Gluten ??? Hydrocodone-Acetaminophen Other (See Comments) Mental Status Changes ??? Penicillins ??? Unclassified Drug Other (See Comments) gluten CURRENT MEDICATIONS Medications reviewed and reconciled in e-DH Current Outpatient Medications: ??? irbesartan (AVAPRO) 150 mg Tablet, , Disp: , Rfl: ??? acetaminophen/diphenhydramine (TYLENOL PM ORAL), Take by mouth., Disp: , Rfl: ??? melatonin 3 mg Tablet, Take by mouth., Disp: , Rfl: ??? gabapentin (NEURONTIN) 300 mg Capsule, TAKE 1 CAPSULE NIGHTLY, Disp: 90 capsule, Rfl: 1 ??? diphenhydrAMINE (BENADRYL) 50 mg Capsule, Take 50 mg by mouth nightly., Disp: , Rfl: ??? cholecalciferol, Vitamin D3, 1,000 unit Tablet, Take 1,000 Units by mouth daily., Disp: , Rfl: ??? mometasone (NASONEX) 50 mcg/actuation [place], Non-Aerosol, 2 sprays by Nasal route daily., Disp: , Rfl: ??? meloxicam (MOBIC) 15 mg Tablet, Take 15 mg by mouth daily., Disp: , Rfl: 0 ??? Calcium 500 mg Tab, Take 500 mg by mouth daily., Disp: , Rfl: ??? nystatin (MYCOSTATIN) powder, Apply topically 3 times daily as needed., Disp: , Rfl: ??? fluticasone (FLONASE) 50 mcg/actuation nasal spray, 1 spray 2 times daily as needed., Disp: , Rfl: ??? ketoconazole (NIZORAL) 2 % cream, Apply topically. Mixing with Desonide, under breasts, skin folds on abdomen 2 times daily for 2 weeks, then as needed for maintenance (Patient not taking: Reportedon 04/08/2018), Disp: 30 g, Rfl: 2 ??? desonide (DESOWEN) 0.05 % cream, Apply topically. Mix with Ketoconazole, under breasts, skin folds on abdomen 2 times daily for 2 weeks, then as needed for maintenance (Patient not taking: Reportedon 04/08/2018), Disp: 30 g, Rfl: 2 ??? acetaminophen (TYLENOL) 500 mg tablet, Take 1,000 mg by mouth 2 times daily., Disp: , Rfl: ??? DULoxetine (CYMBALTA) 60 mg capsule, Take 60 mg by mouth daily. Indications: Fibromyalgia, Disp:, Rfl: ??? loperamide (IMMODIUM) 2 mg tablet, Take 2 mg by mouth 4 times daily as needed., Disp: , Rfl: ??? multivitamin (THERAGRAN) tablet, Take 1 tablet by mouth daily., Disp: , Rfl: ??? OXYGEN-AIR DELIVERY SYSTEMS (HORIZON NASAL CPAP SYSTEM MISC), by Misc.(Non- Drug; Combo Route) route nightly., Disp: , Rfl: ??? TENS UNITS MISC, by Misc.(Non-Drug; Combo Route) route. Tens machine Daily for back and leg , Disp: , Rfl: ??? pantoprazole (PROTONIX) 40 mg tablet, Take 40 mg by mouth daily., Disp: , Rfl: ??? simvastatin (ZOCOR) 20 mg tablet, Take 20 mg by mouth nightly., Disp: , Rfl: ??? levothyroxine (SYNTHROID) 25 mcg tablet, Take 37.5 mcg by mouth daily., Disp: , Rfl: MEDICAL HISTORY Past Medical History: Diagnosis Date ??? 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 Benign renal tumor 10/19/2010 ??? Carcinoid tumor 10/19/2010 ??? Depression 10/19/2010 ??? Elevated cholesterol 10/19/2010 ??? Gastric polyp ??? GERD (gastroesophageal reflux disease) ??? Hypertension ??? Lumbar radiculopathy 10/19/2010 ??? Migraine 10/19/2010 ??? Obesity 10/19/2010 ??? Sleep apnea 10/19/2010 SURGICAL HISTORY Past Surgical History: Procedure Laterality Date ??? CATARACT REMOVAL WITH IMPLANT Bilateral ??? SECTION 1986 ??? CHOLECYSTECTOMY 2006 ??? CREATED BY INTERFACE Entered not Verified Procedure Date: 05/22/2010 ??? CREATED BY INTERFACE No History of Operative Procedures Procedure Date: 05/22/2010 ??? ENDOSCOPY, UPPER GI, SIMPLE PRIMARY EXAM ??? LUMBAR SPINE SURGERY 1976 discectomy , [facility] ??? TOE SURGERY right ??? UPPER GASTROINTESTINAL ENDOSCOPY removal of carcinoid ??? 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 Single. Has 1 daughter. HABITS Denies tobacco use. Rare alcohol use. Denies using other substances. FAMILY HISTORY Father- there was a rumor he had to have 1/2 of his stomach out. Denies family history of celiac disease, esophageal cancer, colon cancer, pancreatic or liver issues, and IBD. PHYSICAL EXAM: Most Recent Vitals: 04/08/18 1256 BP: 137/72 Pulse: 85 Height: Height: 175.3 cm (5' 9) Weight: Weight: 111.3 kg (245 lb 6.4 oz) Body mass index is 36.24 kg/m??. GENERAL: Healthy-appearing in no acute distress. Appears stated age. Well nourished. SKIN: No lesions, rashes, lumps, or angiomas on exposed skin. NECK: No adenopathy. No thyromegaly. HEENT: PERRL, EOMI, mucosa clear without ulceration or lesions, normal Dentition LUNGS: Clear to auscultation bilaterally COR: Regular, normal S1 and S2 without murmurs. ABD: Tympanic. Normal active BS. Soft, non-distended. No bruits. No tenderness to deep palpation in all 4 quadrants. No organomegaly. EXT: No cyanosis, clubbing, or edema. NEURO: Alert and oriented to person, place, time, and situation. Cranial nerves II-XII intact. PSYCH: Mood appropriate. Good eye contact. Normal interaction. Answers all questions appropriately. LABS: Lab Results Component Value Date WBC 21.1 (H) 04/08/2018 HGB 14.3 04/08/2018 HCT 43.9 04/08/2018 MCV 89.4 04/08/2018 PLATELET 109 (L) 04/08/2018 Lab Results Component Value Date NA 144 04/08/2018 K 3.8 04/08/2018 CL 106 04/08/2018 CO2 26 04/08/2018 BUN 12 04/08/2018 CREATININE 0.83 04/08/2018 GLUCOSE 103 04/08/2018 CALCIUM 9.8 04/08/2018 Lab Results Component Value Date ALT 25 04/08/2018 AST 30 04/08/2018 ALKPHOS 89 04/08/2018 BILITOT 0.4 04/08/2018 ALBUMIN 3.9 04/08/2018 PROT 6.4 04/08/2018 No results found for: LIPASE Lab Results Component Value Date BILITOT 0.4 04/08/2018 No results found for: TSH ASSESSMENT 1. DIARRHEA She does not meet SKYLAR IV criteria for IBS. Workup includes negative O&P and stool culture. CT scan done last July (not for this issue) significant for constipation. Given her history of carcinoidand weight loss, we should rule out more insidious etiologies before considering overflow diarrhea. Recommend EGD and colonoscopy. She requires MAC per her request and history of discomfort during endoscopies. Recommend fecal calprotectin and stool elastase. Recommend low-FODMAP diet although her diarrhea does not behavior like osmotic diarrhea. Literature reviewed and provided. 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 These include meloxicam (stopped approximately one month ago), cymb vadim, simvastatin, and pantoprazole. Reports last colonoscopy approximately [address] scan showed inguinal adenopathy. Consider utility of CTE/MRE. Consider utility of HBT. Recommend colestipol. We reviewed medication indications, administration, and side effects. Ddx: IBS, IBD, infectious diarrhea, post-infectious diarrhea, microscopic colitis, neuroendocrine tumor, pancreatic insufficiency, SIBO/dysbiosis, BAM, CD. 2. BLOATING See above plan. Ddx: gastritis/gastropathy, gastroparesis, FD, SIBO/dysbiosis 3. DYSPEPSIA See above plans Ddx: gastritis/gastropathy, gastroparesis, FD, SIBO/dysbiosis PLAN 1. Fecal calprotectin, stool elastase, and 5 HIAA. External orders provided. 2. Low-FODMAP diet for 2-4 weeks. Gradually reintroduce one food at a time to identify triggers. 3. Upper endoscopy and colonoscopy with anesthesia 4. Colestipol 1 gram once daily. DO NOT TAKE WITHIN 2 HOURS of your other medications. May use imodium 1-2 tablets four times daily. 5. Gastrin and VIP today 6. Follow up approximately 2-3 weeks after upper endoscopy and colonoscopy I have provided her with my contact information. She has been encouraged to contact me with any questions or concerns. TIME SPENT WITH PATIENT 56 minutes of this 61 minute visit were spent in [id number] discussion and counseling the patient as detailed per above. Signed, Suri Newton APRN 04/13/18 12:25 PM Section of Gastroenterology & Hepatology [facility] documented in this encounter Plan of Treatment Upcoming Encounters Date Type Specialty Care Team Description 03/06/2022 Office Visit Cardiology Lizeth Frazier MD [facility] [place], [place] [address] (Wo rk) 03/18/2022 Office Visit Neurology Donovan Mayer MD [facility] NEUROLOGY DEPT. [place], [place] [address] (Wo rk) 04/24/2022 Appointment Hematology and Oncology 04/24/2022 Office Visit Hematology and Oncology Renea Navarro MD [facility] HEMATOLOGY/ONCOL OGY DEPT. [place], [place] [address] (Wo rk) Scheduled Orders Name Type Priority Associated Diagnoses Order S chedule COLONOSCOPY Procedures Routine Diarrhea, unspec ified type Ordered: 04/08/2018 Weight loss UPPER GI ENDOSCOPY Procedures Routine Diarrhea, uns pecified type Ordered: 04/08/2018 Weight loss documented as of this encounter Procedures Procedure Name Priority Date/Time Associated Diagnosis Comme nts VASOACTIVE Routine 04/08/2018 2:23 PM Diarrhea, Results f or this INTESTINAL PEPTIDE EST unspecified t ype procedure are in (VIP) Weight loss the results section. GASTRIN Routine 04/08/2018 2:23 PM Diarrhea, Results f or this EST unspecified type procedure are in Weight loss the results section. documented in this encounter Results Gastrin (04/08/2018 2:23 PM EST) P athologist Signature Gastrin 80 pg/mL [facility] Comment: REFERENCE VALUE------ <100 Reference ranges valid for >= 8 hour fast. Test Performed by: [facility] [address] [place] [address] [id number] Specimen Anatomical Collection Method Collection Time Receive d Time (Source) Location / / Volume Laterality Blood specimen 04/08/2018 2:23 PM 018 9:52 (specimen) EST AM EST Resulting Agency Comment Spec In Lab Suri Reyna Newton APRN CHEMISTRY ORDERABLES Performing Organization Address City/[facility] Phon e Number [place] [phone] Vasoactive Intestinal Peptide (VIP) (04/08/2018 2:23 PM EST) athologist Signature VIP <50 <75 pg/mL [facility] Comment: ADDITIONAL INFORMATIO N This test was developed and its performa nce characteristics determined by [facility] in a manner co nsistent with CLIA requirements. This test has not been yemi ared or approved by the U.S. Food and Drug Administration. Test Performed by: [facility] [address] [place], [place] [address] Specimen Anatomical Collection Method Collection Time Receive d Time (Source) Location / / Volume Laterality Blood specimen 04/08/2018 2:23 PM 018 9:52 (specimen) EST AM EST Resulting Agency Comment Spec In Lab Suri Newton APRN CHEMISTRY ORDERABLES Performing Organization Address City/[facility] [place] [address] documented in this encounter Visit Diagnoses Diagnosis Diarrhea, unspecified type Weight loss Loss of weight documented in this encounter Care Teams Explosives Handler Relationship Specialty Start Date End Date Ingrid Espinosa APRN PCP - General Internal Medicine 07/28/17 [address] [place] [address] documented as of this encounter
--- OUTSIDE RECORDS SUMMARY | 2021-12-21 00:36 | XMS_ITS | Encounter Summary ---
:1950 Author Organization [facility] [address] Care Team Providers Name Role Phone Fitz Jenkins MD Primary Care Provider [phone] Reason for Referral Surgical (Routine) - Specialty Diagnoses / Procedures Referred By Contact Refer red To Contact Diagnoses Spinal stenosis of lumbar region, unspecified whether neurogenic claudication present Alice Fishman MD Procedures TRANSFORAMINAL INJECTION [facility] [place] [address] Referral ID Status Reason Start Date Expiration Date Visits V isits Requested Authorized [id number] Consult, 06/04/2017 06/04/2018 1 1 Test & Treat Reason for Visit Surgical (Routine) - Closed Specialty Diagnoses / Procedures Referred By Contact Refer red To Contact Pain Management Diagnoses Spondylosis without myelopathy or radiculopathy, lumbosacral region Right L4-5 transforaminal epidural steroid injection Donovan Mayer MD Gellis, Janice E, MD Procedures PRO INJ, FORAMEN, L/S, 1 LEVEL PRO INJ, FORAMEN, L/S, ADDL LEVELS PROCEDURE 1 [facility] NEUROLOGY [place]PT[place] [address] [place] [address] Fax: Referral ID Status Reason Start Date Expiration Date Visits Requ ested Visits Authorized [id number] Closed 06/04/2017 06/04/2018 1 1 Encounter Details Date Type Department Care Team Description 06/04/2017 Procedure visit Pain Management at Alice Fishman S danica stenosis of [facility] MD lumbar region, [facility]spec[facility] ed [facility] DR [place]valdo [place], [place] [facility] claudication present [id number] [place] [address] [phone] Social History Tobacco Use Types Packs/Day Years [...] Sign Reading Time Taken Comments Blood Pressure 134/56 06/04/2017 12:14 PM EST Pulse 66 06/04/2017 12:18 PM EST Temperature - - Respiratory Rate - - Oxygen Saturation 98% 06/04/2017 11:56 AM EST Inhaled Oxygen Concentration - - Weight 111.1 kg (245 lb) 06/04/2017 11:34 AM EST Height 175.3 cm (5' 9) 06/04/2017 11:34 AM EST Body Mass Index 36.18 06/04/2017 11:34 AM EST documented in this encounter Patient Instructions Patient InstructionsAngelica Alonzo RN - 06/04/2017 12:00 PM EST Pain Management Center Discharge Instructions: You were seen by Dr. Alice Fishman MD and Shona Baker MD who performed lumbar epidural steroid injection. It is normal that the injection site will be sore for up to 48 hours. You may also experience mild stiffness in the joint near the injection site. You may resume your normal activities: tomorrow. You may shower today. DO NOT tub bathe, use whirlpools, hot tubs or pool therapy for 2 days. Remove Band-Aid(s) later today/tomorrow. Do not drive until tomorrow. Use caution walking/climbing stairs as you may be unsteady on your feet. You may use your usual medications, including pain medications, as directed, unless otherwise instructed. You may use an ice pack as needed for the first 24 hours, on for 20 minutes then off for 20 minutes.Do not apply heat today. Attempt to empty your bladder 4-6 hours after your procedure. You received the following medications: Lidocaine and Omnipaque (contrast dye). AND DEXAMETHASONE 10MG During regular business hours, please phone the Pain Management Center at with any questions or if the following or other troubling symptoms develop: 1) Prolonged dizziness or weakness (more than 1 day). 2) Localized swelling, redness or drainage at the injection site(s). 3) Temperature of 101 degrees that lasts for more than 4 hours. After 5 PM or on weekends, call and ask for Pain Clinic provider on-call. If you are unable to reach the Pain Management Center and have a complication, please call your Primary Care Provider or proceed to your local emergency department. Angelica Alonzo RN Special instructions documented in this encounter Progress Notes Carla [place] RN - 06/04/2017 12:00 PM EST Pre-Procedure Screening Questions: 1. Status No 2. Patient states they have a truck driver salesperson to transport after procedure? Yes 3. Patient taking antibiotics at present? No 4. NPO per Pain Management Center protocol? No 5. Patient diabetic: No Patient routinely taking anticoagulants ? No Patient Vital Signs documented in Doc Flowsheets associated with this encounter. Patient Discharge Instructions were reviewed with patient and copy provided to patient. Shona Baker - 06/04/2017 12:00 PM EST PREPROCEDURE HISTORY AND PHYSICAL Date of Visit: June 04, 2017 Chief Complaint: Lower back pain with R>L foot pain HPI: Subjective Saundra Blanton is a 67 y.o. female who presents today for R L 4-5 TFESI. She has had TFESI greater than 10 years ago with effect. She denies anticoagulation use aside from Mobic which she last took 4 days ago. The history is obtained from the patient, and I have reviewed medical records provided by the referring physician and located in the electronic medical record to fill in gaps in the patient's recollection of events, treatments and outcomes. LOCATION: across the lower back and R foot> L foot. PAIN LEVEL 5 AT REST 5 PAST MEDICAL HISTORY: Past Medical History: Diagnosis [...] CATARACT REMOVAL WITH IMPLANT Bilateral ??? SECTION 1987 ??? CHOLECYSTECTOMY 2007 ??? CREATED BY INTERFACE Entered not Verified Procedure Date: 05/22/2010 ??? CREATED BY INTERFACE No History of Operative Procedures Procedure Date: 05/22/2010 ??? ENDOSCOPY, UPPER GI, SIMPLE PRIMARY EXAM ??? LUMBAR SPINE SURGERY 1976 discectomy , [facility] ??? TOE SURGERY right ??? UPPER GASTROINTESTINAL ENDOSCOPY removal of carcinoid ??? WISDOM TOOTH EXTRACTION ALLERGIES: Latex; Sulfa (sulfonamide antibiotics); Adhesive tape-silicones; Codeine; Gluten; Hydrocodone-acetaminophen; Penicillins; and Unclassified drug MEDICATIONS: Medications 06/04/17 1142 Medication Sig Taking? gabapentin (NEURONTIN) 300 mg Capsule Take 1 capsule by mouth nightly. Yes diphenhydrAMINE (BENADRYL) 50 mg Capsule Take 50 mg by mouth nightly. Yes cholecalciferol, Vitamin D3, 1,000 unit Tablet Take 1,000 Units by mouth daily. Yes mometasone (NASONEX) 50 mcg/actuation [place], Non-Aerosol 2 sprays by Nasal route as needed. Yes meloxicam (MOBIC) 15 mg Tablet Take 15 mg by mouth daily. Yes nystatin (MYCOSTATIN) powder Apply topically 3 times daily as needed. Yes fluticasone (FLONASE) 50 mcg/actuation nasal spray 1 spray 2 times daily as needed. Yes OXYcodone-acetaminophen (PERCOCET) 5-325 [...] SYSTEMS (HORIZON NASAL CPAP SYSTEM MISC) by [facility]Non-Drug; Combo Route) route nightly. Yes TENS UNITS MISC by [facility]Non-Drug; Combo Route) route. Tens machine Daily for back and leg Yes pantoprazole (PROTONIX) 40 mg tablet Take 40 mg by mouth daily. Yes simvastatin (ZOCOR) 20 mg tablet Take 20 mg by mouth nightly. Yes levothyroxine (SYNTHROID) 25 mcg tablet Take 25 mcg by mouth daily. Yes valsartan (DIOVAN) 160 mg tablet Take 160 mg by mouth daily. Yes Calcium 500 mg Tab Take 1,000 mg by mouth daily. loratadine (CLARITIN) 10 mg tablet Take 10 mg by mouth daily as needed. FAMILY HISTORY: Family History Problem Relation Age of Onset ??? Heart Disease Mother ??? Arthritis Mother ??? Heart Disease Father ??? Arthritis Father ??? Arthritis Sister ??? Depression Brother SOCIAL HISTORY: Social History Social History ??? Marital status: Spouse name: N/A ??? Number of children: 1 ??? 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 Smoking status: Never Smoker ??? Smokeless tobacco: Never Used ??? Alcohol use Yes Comment: very rare use, denies ETOH abuse ??? Drug use: No Comment: denies illicit drug use or abuse ??? Sexual activity: Not on file Comment: deferred Other Topics Concern ??? Not on file Social History Narrative ROS: Patient denies recent illness or current rash. PHYSICAL EXAM: BP 177/87 (BP Location (NBP): Right arm, Patient Position: Sitting) Pulse 81 Ht 175.3 cm (5' 9) Wt 111.1 kg (245 lb) SpO2 99% BMI 36.18 kg/m2 Physical Exam Constitutional: She appears well-developed and well-nourished. Pulmonary/Chest: Effort normal and breath sounds normal. Psychiatric: She has a normal mood and affect. Her behavior is normal. Judgment and thought content normal. RADIOLOGIC DATA: MRI reviewed LABS/DX RESULTS: Not indcated ASSESSMENT: Assessment 1. Spinal stenosis of lumbar region, unspecified whether neurogenic claudication present PLAN: There are no contraindications for the planned procedure. Proceed with Right L4-5 TFESI. Shona Baker MD Pain fellow documented in this encounter Procedure Notes Alice Fishman MD - 06/04/2017 12:00 PM ESTAssociated Order(s): TRANSFORAMINAL INJECTION Procedure(s): TRANSFORAMINAL INJECTION Pre-Procedure Diagnose(s): Spinal stenosis of lumbar region, unspecified whether neurogenic claudication present Transforaminal Epidural Steroid Injection with Fluoroscopic Guidance right L4-L5 Chief Complaint: Low back pain, lower extremity pain -right Saundra Blanton has been referred to the Pain Management Center for Lumbar Transforaminal Epidural Steroid Injection right L4-L5 COMMENTS: Imaging reviewed Ms. Blanton was interviewed and the medical record reviewed. There were no medical, pharmacologic, radiographic or other structural contraindications to attempting fluoroscopically guided epidural steroid injection. Risks and expected side effects as well as potential benefit of the procedure were revie wed with Ms. Blanton, and her voiced concerns were addressed. The printed consent form was signed andwitnessed. The risks and benefits were reviewed with the patient including but not limited to post dural puncture, headache, infection, nerve injury, allergic reaction, possible increase in symptoms over the ensuing 24 to 48 hours, paralysis. The patient appeared to understand, questions were answeredand the patient agreed to proceed. Standard time-out procedure was performed. Saundra Blanton was greeted by the nurse who verified patients name and . Patient was then taken to the fluoroscopy suite. TECHNIQUE: After informed written consent was obtained the patient was placed in the prone position. The lumbar spine spine was prepped with chloraprep and draped. Sterile technique was used ( cap, glove, mask were worn). Vitals signs were monitored, time out was done and the right side was marked. The skin and subcutaneous structures were anesthetized with lidocaine 1% to a total volume of 5 ML at each level. Under fluoroscopic guidance, in ipsilateral oblique view, co-axial approach, 22 gauge spinal needle(s) were advanced to the base of the L-4. pedicle(s). The needle(s) were advanced to the superio-posterior aspect of the neural foramen under lateral view. Oblique and AP views were rechecked. Under AP view Omnipaque 240 1 cc's was injected while visualized with digital subtraction. There was no evidence of intravascular uptake, the epidural space was delineated. Decadron 10 mg was injected after negative aspiration, at each level, followed by lidocaine 1% 0.25-ML at each level. At the end of the procedure the patient stated that she was feeling nauseated. Her HR dropped into the 50's. The proocedurewas completed and the patient was placed in the supine position in trendelenberg. Her HR increased to the 60's promptly. Her BP decreased to 77/ And promptly increased to 95/ . Outcome: The patient tolerated the procedure well and vital signs stabilized. Preprocedure pain level was a 5 out of 10. Follow up plans and appointments were discussed with Saundra Blanton. The patient was observed in thepain clinic and then discharged after having met discharge criteria to the care of a truck driver salesperson. The patient received written instructions as documented in nursing records. COMMENTS: RECOMMEND THAT PATIENT HAVE AN IV WITH FUTURE PROCEDURES AND BE PRETREATED WITH GLYCOPYRROLATE. Disposition: Follow-up with Pain Clinic WALL CRANE OPERATOR (Rachel Breen APRN, Gabriella Atkinson APRN). CC: Fitz Jenkins MD @[email or web address]@ Shona Ree Baker MD Pain Fellow I was the attending physician supervising the fellow or resident in the above care and I was presentwith the resident for the entire procedure. ALICE FISHMAN MD documented in this encounter Plan of Treatment Upcoming Encounters Date Type Specialty Care Team Description 03/06/2022 Office Visit Cardiology Lizeth Frazier MD [facility] [place], [place] [address] (Wo rk) 03/18/2022 Office Visit Neurology Donovan Mayer MD [facility] NEUROLOGY DEPT. [place], [place] [address] (Wo rk) 04/24/2022 Appointment Hematology and Oncology 04/24/2022 Office Visit Hematology and Oncology Renea Navarro MD [facility] HEMATOLOGY/ONCOL [place] DEPT. [place], [place] [address] (Wo rk) documented as of this encounter Procedures Procedure Name Priority Date/Time Associated Diagnosis Comme nts TRANSFORAMINAL Routine 06/12/2017 12:03 Spinal stenosis of Res ults for this INJECTION PM EST lumbar region, procedure are in unspecified whether the resu lts neurogenic section. claudication present documented in this encounter Results TRANSFORAMINAL INJECTION (06/12/2017 12:03 PM EST) Narrative Alice Fishman MD - 06/12/2017 12:03 PM EST Alice Fishman MD ? 06/12/2017 12:03 PM Transforaminal Epidural Steroid Injectio n with Fluoroscopic Guidance ??right L4-L5 Chief Complaint: Low back pain, lower ex tremity pain -right Saundra Blanton has been referred to the Pain Management Center for Lumbar Transforaminal Epidural Stero id Injection ??right ?? L4-L5 COMMENTS: Imaging ??reviewed Ms. Blanton was interviewed and the medic al record reviewed. ?? There were no medical, pharmacologic, ra diographic or other structural contraindications to attempti ng fluoroscopically guided epidural steroid injection. ??Ris ks and expected side effects as well as potential benefit of the procedure were reviewed with Ms. Blanton, and her voiced concerns were addressed. The printed consent form was signed and witnessed. The risks and benefits were reviewed with the patient including but not limited to post dural puncture, headache, infect ion, nerve injury, allergic reaction, possible increase in symptoms over the ensuing 24 to 48 hours, paralysis. ??The patient appeared to understand, ?? questions were answered and the patient agreed to proceed. Standard time-out procedure was performe d. Saundra Blanton was greeted by the nurse who verified patients name and . ??Patient was then taken t o the fluoroscopy suite. TECHNIQUE: ??After informed written con sent was obtained the patient was placed in the prone position . ??The ?lumbar spine ?? spine was prepped with chloraprep and dr blackwell. ??Sterile technique was used ( cap, glove, mask were worn). Vitals signs were monitored, time out was done and the rig ht side was marked. ??The skin and subcutaneous structures were an esthetized with lidocaine 1% to a total volume of 5 ??ML at each l evel. Under fluoroscopic guidance, in ipsilate ral oblique view, co-axial approach, ??22 gauge spinal nee dle(s) were advanced to the base of the ?? L-4. ?? pedicle(s). ? ?The needle(s) were advanced to the superio-posterior aspect of the n eural foramen under lateral view. ??Oblique and AP views wer e rechecked. ?? Under AP view Omnipaque 240 ??1 cc's was injected while visualized with digital subtraction. ?? There was no donovan dence of intravascular uptake, the epidural space was delineate d. ??Decadron ??10 ??mg was injected after negative aspiration, at e ach level, followed by lidocaine 1% 0.25-ML at each level. At t he end of the procedure the patient stated that she was feeling nauseated. Her HR dropped into the 50's. The proocedure was comple jerald and the patient was placed in the supine position in trendel enberg. Her HR increased to the 60's promptly. Her BP decreased t o 77/ ?? And promptly increased to 95/ . Outcome: The patient tolerated the proce dure well and ?? vital signs stabilized. ??Preprocedure pain le clarissa was a ??5 out of 10. ?? Follow up plans and appointments were di scussed with Saundra Blanton. The patient was observed in the pain clinic and then discharged after having met discharge cr iteria ??to the care of a truck driver salesperson. ??The patient received written i nstructions as documented in nursing records. ?? COMMENTS: RECOMMEND THAT PATIENT HAVE AN IV WITH FUTURE PROCEDURES AND BE PRETREATED WITH GLYCOP YRROLATE. Disposition: Follow-up with Pain Clinic WALL CRANE OPERATOR ??(Tim Breen, WALL CRANE OPERATOR, Gabriella Atkinson WALL CRANE OPERATOR). CC: Fitz Jenkins MD @[email or web address]@ Shona Baker MD Pain Fellow I was the attending physician supervisin g the fellow or resident in the above care and I was present with the resident for the entire procedure. ALICE FISHMAN MD Alice Fishman MD PROCEDURE/MINOR SURGICAL ORD ERABLES documented in this encounter Visit Diagnoses Diagnosis Spinal stenosis of lumbar region, unspec ified whether neurogenic claudication present documented in this encounter Administered Medications Inactive Administered Medications - up to 3 most recent administrations Medication Order MAR Action Action Date Dose Rate Site dexamethasone(PF) (DECADRON) 10 Given 06/04/2017 12:15 PM EST 10 mg mg/mL injection 10 mg 10 mg, Epidural, ONCE, 1 dose, On Fri06/04/17 at 1215, Routine iohexol (OMNIPAQUE) 240 mg/mL solution 1 mL Given 06/04/2017 12:15 PM EST 1 mL 1 mL, Epidural, ONCE, 1 dose, On Fri06/04/17 at 1215, Wasted 49 ml, Routine documented in this encounter Care Teams Supervisor Pleating Relationship Specialty Start Date End Date Fitz Jenkins MD PCP - General 04/10/10 07/27/[address] [place] [address] documented as of this encounter
--- OUTSIDE RECORDS SUMMARY | 2021-12-21 00:36 | XMS_ITS | Encounter Summary ---
:1950 Author Organization [facility] [place] [address] Care Team Providers Name Role Phone Fitz Jenkins MD Primary Care Provider Encounter Details Date Type Department Care Team Description 07/22/2017 Hospital Encounter Radiology Library at Coleman more MD [facility] [place] [address] [place] [address] [phone] (Wo rk) Social History Tobacco Use Types [...] tablet mouth daily. OXYGEN-AIR DELIVERY by [facility].(Non-Drug; 0 SYSTEMS (HORIZON NASAL Combo Route) route CPAP SYSTEM MIS) nightly. levothyroxine Take 37.5 mcg by 0 (SYNTHROID) 25 mcg mouth daily. tablet gabapentin (NEURONTIN) Take 1 capsule by 90 capsule 3 201609/21/2017 300 mg Capsule mouth nightly. diphenhydrAMINE Take 50 mg by mouth 0 04/08/2018 (BENADRYL) 50 mg Capsule nightly. mometasone (NASONEX) 50 2 sprays by Nasal 0 04/08/2018 mcg/actuation [place], route daily. Non-Aerosol meloxicam (MOBIC) 15 mg [...] Indications: fibromyalgia Fibromyalgia TENS UNITS MISC by [facility].(Non-Drug; 0 0 01/13/2019 Combo Route) route. Tens [...] Office Visit Cardiology Lizeth Frazier MD [facility] [place], [place] [address] (Wo rk) 03/18/2022 Office Visit Neurology Donovan Mayer MD [facility] NEUROLOGY DEPT. [place], [place] [address] (Wo rk) 04/24/2022 Appointment Hematology and Oncology 04/24/2022 Office Visit Hematology and Oncology Renea Navarro MD [facility] HEMATOLOGY/ONCOL OGY DEPT. [place], [place] [address] (Wo rk) documented as of this encounter Procedures Procedure Name Priority Date/Time Associated Diagnosis Comme nts FILM LIBRARY Routine 07/22/2017 12:00 AM Pain Results for this STORAGE ONLY CT EST procedure ar e in ABDOMEN AND PELVIS the resul ts section. documented in this encounter Results Film Library- Storage Only CT Abdomen & Pelvis (07/22/2017 12:00 AM EST) Specimen (Source) Anatomical Location Collection Method / Collectio n Time Received Time / Laterality Volume Narrative RAD - 07/28/2017 6:25 PM EDT This result has an attachment that is no t available. This exam is for storage only and is aut o-finalizing. Coleman Du MD IMG FILM LIBRARY ORDERABLES Performing Organization Address City/State/ZIP Code Phon e Number [place], [place] documented in this encounter Visit Diagnoses Diagnosis Pain Generalized pain documented in this encounter Care Teams Senior Materials Planner Relationship Specialty Start Date End Date Fitz Jenkins MD PCP - General 04/10/10 07/27/17 [place] [id number] documented as of this encounter
--- OUTSIDE RECORDS SUMMARY | 2021-12-21 00:36 | XMS_ITS | Encounter Summary ---
:1950 Author Organization [facility] [place] [address] Care Team Providers Name Role Phone FranciscaIngrid allison Uriel PALACIOS Primary Care Provider Encounter Details Date Type Department Care Team Description 04/16/2018 Office Visit Neurology at [facility] [place] Mayer, Radiculopathy of lumbar [facility] Center MD mendoza [place], [place] CENTER [address] NEUROLOGY DEPT. [phone] [place], [place] [address] Social History Tobacco Use Types [...] Sign Reading Time Taken Comments Blood Pressure 111/65 04/16/2018 3:04 PM EST Pulse 96 04/16/2018 3:04 PM EST Temperature - - Respiratory Rate - - Oxygen Saturation - - Inhaled Oxygen Concentration - - Weight 111.1 kg (245 lb) 04/16/2018 3:04 PM EST Height 175.3 cm (5' 9) 04/16/2018 3:04 PM EST reported Body Mass Index 36.18 04/16/2018 3:04 PM EST documented in this encounter Patient Instructions Patient InstructionsDonovan Mayer MD - 04/16/2018 3:00 PM EST I think you are doing quite [...] picture in any way at this time. For the diarrhea, I think a full evaluation is very reasonable, but you may also consider stopping the duloxetine for a few days and seeing whether that helps. I would like to see you back in 6 months or sooner if necessary. Donovan Mayer [place] [address] Pager: [phone], #[phone] Email: [email or web address] documented in this encounter Progress Notes Donovan Mayer MD - 04/16/2018 3:00 PM EST Neurology clinic note Chief Complaint: Lumbar [...] symptoms. The right leg feels stronger. She has recently been having diarrhea and this is under investigation and gastroenterology. 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 Chronic lymphocytic leukemia is being followed conservatively [...] i. Repeat [facility] OSH 2006 normal. 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 D. 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 Physical Exam: BP 111/65 (BP Location (NBP): Left arm, Patient Position: Sitting, BP Cuff Sizes: Large Adult (32-43cm)) Pulse 96 Ht 175.3 cm (5' 9) Comment: reported Wt 111.1 kg (245 lb) BMI 36.18 kg/m?? Head, eyes, ears, nose, and throat were normal. Heart and lungs were normal. There are some arthritic deformities of the right ankle and foot She is mentally intact and speech was normal Cranial nerves were normal. Strength was essentially normal, significant weakness of dorsiflexion of the big toe on the right isnot really worse than baseline, and definite weakness of eversion of the right foot noted at earliervisits appears stable or somewhat improved today. Reflexes were 2+, except [...] Outpatient Medications Medication Sig Dispense Refill ??? irbesartan (AVAPRO) 150 mg Tablet Take 150 mg by mouth daily. ??? colestipol (COLESTID) 1 gram Tablet Take 1 tablet by mouth daily. 30 tablet 1 ??? acetaminophen/diphenhydramine (TYLENOL PM ORAL) Take by mouth. ??? melatonin 3 mg Tablet Take by mouth. ??? gabapentin (NEURONTIN) 300 mg Capsule TAKE 1 CAPSULE NIGHTLY 90 capsule 1 ??? cholecalciferol, Vitamin D3, 1,000 unit Tablet [...] SYSTEMS (HORIZON NASAL CPAP SYSTEM MISC) by [facility]Non- Drug; Combo Route) route nightly. ??? TENS UNITS MISC by [facility] [place].(Non-Drug; Combo Route) route. Tens machine Daily for [...] and gabapentin which I think is reasonable. I suggest that she try stopping the duloxetine for up to a week to see whether that will improve her diarrhea. 4. 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 I will see her back in 6 months or sooner if necessary. Thank you for this consultation. Donovan Mayer MD Department [place] [address] Pager: [phone], #[phone] Email: [email or web address] cc: Ingrid Espinosa APRN documented in this encounter Plan of Treatment Upcoming Encounters Date Type Specialty Care Team Description 03/06/2022 Office Visit Cardiology Lizeth Frazier MD [facility] [place], [place] [address] (Amado rk) 03/18/2022 Office Visit Neurology Donovan Mayer MD [facility] NEUROLOGY DEPT. [place], [place] [address] (Amado rk) 04/24/2022 Appointment Hematology and Oncology 04/24/2022 Office Visit Hematology and Oncology Renea Navarro MD [facility] HEMATOLOGY/ONCOL CLAUDE DEPT. [place], [place] [address] (Amado rk) documented as of this encounter Visit Diagnoses Diagnosis Radiculopathy of lumbar region Thoracic or lumbosacral neuritis or radi culitis, unspecified documented in this encounter Care Teams Pepper Cutter Relationship Specialty Start Date End Date Ingrid Espinosa APRN PCP - General Internal Medicine 07/28/[address] [place] [address] documented as of this encounter
--- OUTSIDE RECORDS SUMMARY | 2021-12-21 00:36 | XMS_ITS | Encounter Summary ---
:1950 Author Organization [facility] [place] [address] Care Team Providers Name Role Phone Ingrid Espinosa Uriel PALACIOS Primary Care Provider Reason for Referral (Routine) - Specialty Diagnoses / Procedures Referred By Contact Refer red To Contact Diagnoses Genetic anomalies of leukocytes CLL (chronic lymphocytic leukemia) Virgilio Navarro MD Procedures Chromosome Analysis, Acquired [facility] Dr HEMATOLOGY/[place] [address] Referral ID Status Reason Start Date Expiration Date Visits V isits Requested Authorized [id number] 10/14/2017 10/14/2018 1 1 Reason for Visit (Routine) - Specialty Diagnoses / Procedures Referred By Contact Refer red To Contact Diagnoses Genetic anomalies of leukocytes CLL (chronic lymphocytic leukemia) Virgilio Navarro MD Procedures Chromosome Analysis, Acquired [facility] HEMATOLOGY/[place] [address] Referral ID Status Reason Start Date Expiration Date Visits V isits Requested Authorized [id number] 10/14/2017 10/14/2018 1 1 Encounter Details Date Type Department Care Team Description 04/08/2018 Hospital Encounter Hematology and CLL (ch ronic lymphocytic leukemia); Oncology at [facility] [place] [address] Social History Tobacco Use Types Packs/Day [...] Sig Dispensed Refills Start Date End Date acetaminophen/diphenhyd Take 1 tablet by 0 ramine [...] (THERAGRAN) tablet mouth daily. OXYGEN-AIR DELIVERY by [facility].(Non-Drug; 0 SYSTEMS (HORIZON NASAL Combo Route) route CPAP SYSTEM MIS) nightly. levothyroxine Take 37.5 mcg by 0 (SYNTHROID) 25 mcg mouth daily. tablet irbesartan (AVAPRO) 150 Take 150 mg by mouth 0 01/13/2019 mg Tablet daily. colestipol (COLESTID) 1 Take 1 tablet by 30 tablet 1 201701/13/2019 gram Tablet mouth daily. melatonin 3 mg Tablet Take by mouth. 0 06/13/2020 gabapentin (NEURONTIN) TAKE 1 CAPSULE 90 capsule 1 8 04/23/2018 300 mg Capsule NIGHTLY meloxicam (MOBIC) 15 mg Take 15 mg by mouth 0 04/16/2018 Tablet daily. DULoxetine (CYMBALTA) Take 60 mg by mouth 0 01/13/2019 60 mg daily. Indications: capsuleIndications: Fibromyalgia fibromyalgia TENS UNITS MISC by Mis.(Non-Drug; 0 0 [...] Cardiology Lizeth Frazier MD [facility] [place], [place] [address] (Wo rk) 03/18/2022 Office Visit Neurology Donovan Mayer MD [facility] NEUROLOGY DEPT. [place], [place] [address] (Wo rk) 04/24/2022 Appointment Hematology and Oncology 04/24/2022 Office Visit Hematology and Oncology Renea Navarro MD [facility] HEMATOLOGY/ONCOL OGY DEPT. [place], [place] [address] (Wo rk) documented as of this encounter Procedures Procedure Name Priority Date/Time Associated Comments Diagnosis SCAN, PERIPHERAL BLOOD Routine 04/08/2018 10:30 R esults for this AM EST procedure are i n the results section. HEMOGRAM Routine 04/08/2018 10:30 CLL (chronic Results for this AM EST lymphocytic procedure are i n leukemia) the results section. DIFFERENTIAL, Routine 04/08/2018 10:30 CLL (chronic Results fo r this AUTOMATED AM EST lymphocytic procedure are i n leukemia) the results section. PLATELET COUNT Routine 04/08/2018 10:30 Results f or this AM EST procedure are i n the results section. CBC (WITH DIFF) Routine 04/08/2018 10:30 CLL (chronic AM EST lymphocytic leukemia) LACTATE DEHYDROGENASE Routine 04/08/2018 10:30 CLL (chronic Re sults for this AM EST lymphocytic procedure are i n leukemia) the results section. COMPREHENSIVE Routine 04/08/2018 10:30 CLL (chronic Results fo r this METABOLIC PANEL AM EST lymphocytic procedure ar e in (NON-FASTING) leukemia) the results section. CHROMO REPORT ACQUIRED Routine 04/08/2018 10:26 Genetic anomal ies Results for this AM EST of leukocytes procedure are in CLL (chronic the results lymphocytic section. leukemia) CHROMOSOME ANALYSIS, Routine 04/08/2018 10:26 Genetic anomalie s ACQUIRED AM EST of leukocytes CLL (chronic lymphocytic leukemia) documented in this encounter Results (ABNORMAL) Platelet count (04/08/2018 10:30 AM EST) athologist Signature Platelets 109 (L) 145 - 357 [facility] x10(3)/[facility] LABORATORY Plat Immature 4.7 0.0 - 7.4 [facility] % % [facility] LAB[facility]ORY Comment: Limitation of the Immature Platelet Frac tion (IPF)-May be less reliable when the platelet count is less than 89e126/u L due to statistical imprecision. The IPF value provides an assessment of the Bone Marrow production status. ??It is useful in differentiating Thrombocyto penia caused by platelet destruction/consumption versus decreased production. It also helps to determine the imminent release of platelets and ca n be therefore a helpful parameter in Chemotherapy and Bone marrow transplant patients. ELEVATED IPF value: ?? When the bone marrow is in a state of over production such as when increased destruction and consumption are the unde rlying issue. ?? When the marrow is recovering post ch emotherapy or bone marrow transplant. LOW to NORMAL IPF value: ?? When the bone marrow in not respondin g and is in a decreased state of production. References: [employer] The Clinical Value of the Immature Platelet Fraction (IPF) in Cell Recovery Document Number [id number] 10/2010 [employer] The Role of the Imm ature Platelet Fraction (IPF) in the Differential Diagnosis of Thrombocytopen ia, Document [id number] V05/05/01 P0514 Specimen Anatomical Collection Method Collection Time Receive d Time (Source) Location / / Volume Laterality Blood specimen Venous Draw / 04/08/2018 10:30 04/08/20 18 (specimen) Unknown AM EST 10:40 AM EST Resulting Agency Comment Spec In Lab Virgilio Navarro MD HEMATOLOGY ORDERABLES Performing Organization Address City/[facility]/ZIP Code Phon e Number [address] Scan, Peripheral Blood (04/08/2018 10:30 AM EST) [facility] Gamemaster Method Time Signature Plat Estimate Decreased [facility] RBC Morphology Normal [facility] Atypical Lymph Moderate [facility] Smudge Cells Present [facility] Specimen Anatomical Collection Method Collection Time Receive d Time (Source) Location / / Volume Laterality Blood specimen 04/08/2018 10:30 8 (specimen) AM EST 10:40 AM EST Resulting Agency Comment Spec In Lab Virgilio Navarro MD HEMATOLOGY ORDERABLES Performing Organization Address City/[facility]/[place] [address] (ABNORMAL) Differential, Automated (04/08/2018 10:30 AM EST) [facility] Gamemaster Method Time Signature Neutrophils % 15.6 % [facility] Neutr Abs (ANC) 3.29 1.70 - [facility] 6.10 [facility] x10(3)/[facility] LABORATORY Lymphocytes % 79.5 % [facility] Lymphocytes Abs 16.7 (H) 0.9 - 3.2 [facility] x10(3)/[facility] LABORATORY Monocytes % 3.7 % [facility] Monocyte Abs 0.8 0.3 - 0.9 [facility] x10(3)/[facility] LABORATORY Eosinophils % 0.5 % [facility] Eosinophils Abs 0.1 0.0 - 0.4 [facility] x10(3)/[facility] LABORATORY Basophils % 0.4 % [facility] Basophils Abs 0.1 0.0 - 0.1 [facility] x10(3)/[facility] LABORATORY Immature Gran % 0.30 % [facility] Comment: Immature granulocytes(IG's)percentage an d absolute count will include metamyelocytes, myelocytes, and promyelo cytes. Blood smears from CBCs yielding IG's will be scanned manually for concor dance. If this scan disagrees with the automated IG or if promyelocytes are not ed, a manual differential will be performed. Betty Gran Abs 0.06 (H) 0.00 - 0.04 x10(3)/[facility] LABORATORY Specimen Anatomical Collection Method Collection Time Receive d Time (Source) Location / / Volume Laterality Blood specimen 04/08/2018 10:30 8 (specimen) AM EST 10:40 AM EST Resulting Agency Comment Spec In Lab Virgilio Navarro MD HEMATOLOGY ORDERABLES Performing Organization Address City/State/ZIP Code Phon e Number [place] [phone] HOSP[address] LAB[address]ORY [address] (ABNORMAL) Hemogram (04/08/2018 10:30 AM EST) Analysis Performed At Patho logist Time Signature WBC 21.1 (H) 4.0 - 9.5 [facility] x10(3)/[facility] LABORATORY RBC 4.91 4.00 - [facility] 5.21 [facility] x10(6)/[facility] LABORATORY Hemoglobin 14.3 11.7 - [facility] 15.5 gm/dL [facility] LABORATORY Hematocrit 43.9 35.7 - [facility] 45.8 % [facility] LAB[facility]ATORY MCV 89.4 82.6 - [facility] [address] [facility] LAB[facility] MCH 29.1 27.1 - [place] 32.[address] [facility] LABORATORY MCHC 32.6 31.7 - [facility] 35.0 gm/dL [facility] LAB[facility]ORY Platelets 109 (L) 145 - 357 [facility] x10(3)/[facility] LABORATORY RDWSD 44.2 37.0 - [facility] 46.0 [facility] LABORATORY RDWCV 13.6 11.5 - [facility] 14.1 % [facility] LABORATORY MPV 10.3 7.6 - 12.9 [facility] LABORATORY nRBC % Auto 0.0 % [facility] nRBC Abs Auto 0.000 0.000 - [facility] 0.000 [facility] x10(3)/[facility] LABORATORY Specimen Anatomical Collection Method Collection Time Receive d Time (Source) Location / / Volume Laterality Blood specimen 04/08/2018 10:30 8 (specimen) AM EST 10:40 AM EST Resulting Agency Comment Spec In Lab Virgilio Navarro MD HEMATOLOGY ORDERABLES Performing Organization Address City/State/[place] [address] Comprehensive metabolic panel (non-fasting) (04/08/2018 10:30 AM EST) athologist Signature Glucose Lvl 103 65 - 199 [facility] mg/dL [facility] LAB[facility] Comment: Diabetes: >=200 mg/dL plus symp toms BUN 12 8 - 18 mg/dL [facility] LABOR[facility]ORY Creatinine 0.83 0.70 - 1.20 mg/dL [facility] LABOR[facility] Sodium 144 135 - 145 mmol/L [facility] LABORATORY Potassium 3.8 3.5 - 5.0 mmol/L [facility] LABORATORY Comment: Please note: ??Patients with WBC >100,00 0 may have falsely elevated Potassium levels. ??For accurate Potassium quantif ication in these patients send serum separator tube (gold top) for subsequent determinations. ??Contact the Clinical Chemistry Laboratory if there are any qu estions. Chloride 106 98 - 107 mmol/L [facility] CO2 26 22 - 31 mmol/L [facility] Anion Gap 12 5 - 15 mmol/L [facility] LABORATORY Calcium 9.8 8.5 - 10.5 mg/dL [facility] LABORATORY Total Protein 6.4 6.1 - 8.0 gm/dL [facility] LABORATORY Albumin 3.9 3.2 - 5.2 gm/dL [facility] AST 30 0 - 30 unit/L [facility] ALT 25 0 - 30 unit/L [facility] Alk Phos 89 40 - 104 unit/L [facility] Total Bilirubin 0.4 0.2 - 1.3 mg/dL [facility] LABOR[facility]ORY Estimated GFR 72 >=60 mL/min/1.73 m?? [facility] Comment: The eGFR was calculated using the CKD-EP I equation. As with all creatinine based estimates of kidney function, eGFR values calculated with the CKD-EPI equation are not accurate in patients wi th acute kidney failure, extremes of body mass or the acutely ill. [email or web address]f eGFR 83 >=60 mL/min/1.73 m?? [facility] Comment: The eGFR was calculated using the CKD-EP I equation. As with all creatinine based estimates of kidney function, eGFR values calculated with the CKD-EPI equation are not accurate in patients wi th acute kidney failure, extremes of body mass or the acutely ill. [email or web address]/[facility] Specimen Anatomical Collection Method Collection Time Receive d Time (Source) Location / / Volume Laterality Blood specimen 04/08/2018 10:30 8 (specimen) AM EST 10:40 AM EST Resulting Agency Comment Spec In Lab Virgilio Navarro MD CHEMISTRY ORDERABLES Performing Organization Address City/State/[place] [address] Lactate Dehydrogenase (04/08/2018 10:30 AM EST) P athologist Signature LDH 214 110 - 220 [facility] unit/L [facility] LABORATORY Specimen Anatomical Collection Method Collection Time Receive d Time (Source) Location / / Volume Laterality Blood specimen 04/08/2018 10:30 8 (specimen) AM EST 10:40 AM EST Resulting Agency Comment Spec In Lab Virgilio Navarro MD CHEMISTRY ORDERABLES Performing Organization Address City/State/ZIP [place] [address] chromo report acquired (04/08/2018 10:26 AM EST) Component Value Ref Test Analysis Performed At [facility] gist Range Method Time Signature Cytogenetics Final Report [place] Acquired Report CLL FISH Panel [facility] HOSP ITAL ?[id number] LABORATORY Specimen Type: Blood Specimen Condition: ~8.5ml Collection Date/Time: 04/08/2018 10:30 Received Date/Time: 04/08/2018 10:49 Indication: ??CLL ---Results--- CLL FISH panel: ?? POSITIVE for SERGO/11q22.3 deletion, and 13q14.3 deletion ( see comment) ?? NEGATIVE for CCND1-IGH/t(11;14), TP53/17p13.1 deletion an d trisomy 12. ---Karyotype--- nuc reyes(CCND1,IGH)x2[200],(ATMx1,TP53x2)[97/200],([id number],H72K596v5,BOUG2t3)[127/200 ] ---Preparation--- Culture Type: Direct [place] Days in Culture: N/A Banding Method: N/A Banding Level: N/A FISH Method: Interphase FISH ---Analysis--- Cultures Analyzed: N/A Metaphase Cells Counted: N/A Metaphase Cells Analyzed: N/A Metaphase Cells Karyotyped: N/A ---Interpretation--- Interphase FISH analysis using dual-color dual-fusion probes for CCND1-IGH/t(11;14)(q13;q32) ([employer] shows 0% of 200 cells with a CCND1-IGH rearrangement signal pattern. This i s within acceptable reference limits (0-1.5%). Thus, there is no evidence for CCND1-IGH/t( 11;14). Interphase FISH analysis usi ng probes for the TP53/17p13.1 and SERGO/11q22.3 gene loci ([employer] ) shows 3% and 48.5% of 200 cells with TP53 and SERGO signal deletion patterns, respectively. These ar e within acceptable reference limits for TP53/17p13.1 deletion (0-6.3%) but significantly above the acceptable reference limits for SERGO/11q22.3 rudy tion (0-7.9%). 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 Interphase FISH analysis usi ng probes for the D12Z3/CEP12, C67P013/13q14.3, and LAMP1/13q34 loci ([employer] shows 4.0% and 6 3.5% of 200 cells with chromosome 12 signal gain and 13q14.3 signal deletion p atterns, respectively. These numbers are within a cceptable reference limits for trisomy 12 (0-8.4%) but significantl y above the acceptable reference limits for 13q14.3 deletion (0-6.3%). Thus, the re is evidence for 13q14.3 deletion but no evidence for trisomy 12. ---Recommendation--- Correlation with clinical and pathological studies is sugges jerald. ---Disclaimer--- The FISH test was developed and its performance characteristics were determined by the [facility] ([facility]) Cytogenet ics Laboratory as required by CLIA? 88 regulations. It has not been cleared or approved for specific uses by the U.S. Food and Drug Administration (FDA) . The FDA has determined that such clearance or approve is not necessary. This test is used for clinical purposes. It should not be regarded as investig ational or for research. Pursuant to the re quirements of CLIA? 88, this laboratory has established and verified the test? s accuracy and precision. The [facility] Cytogenetics Laboratory is c ertified under the CLIA? 88 as qualified to perform high complexity clinical laboratory testing. Professional component perfo rmed by Kate Salas, Ph.D., [facility], [address] [place] [address], [place] (CLIA #: [id number]). 04.10. 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
--- OUTSIDE RECORDS SUMMARY | 2021-12-21 00:36 | XMS_ITS | Encounter Summary ---
:1950 Author Organization [facility] [place] [address] Care Team Providers Name Role Phone Fitz Jenkins MD Primary Care Provider [phone] Encounter Details Date Type Department Care Team Description 03/20/2017 Hospital Encounter Radiology Library at Coleman more MD [facility] [place] [address] [place] [address] [phone] (Wo rk) Social History Tobacco Use Types [...] 0 tablet mouth daily. OXYGEN-AIR DELIVERY by [facility]Non-Drug; 0 SYSTEMS (HORIZON NASAL Combo Route) route CPAP SYSTEM [facility]) nightly. levothyroxine Take 37.5 mcg by 0 (SYNTHROID) 25 mcg mouth daily. tablet gabapentin (NEURONTIN) Take 1 capsule by 90 capsule 3 201609/21/2017 300 mg Capsule mouth nightly. diphenhydrAMINE Take 50 mg by mouth 0 04/08/2018 (BENADRYL) 50 mg Capsule nightly. mometasone (NASONEX) 50 2 sprays by Nasal 0 04/08/2018 mcg/actuation [place], route daily. Non-Aerosol meloxicam (MOBIC) 15 mg [...] Indications: fibromyalgia Fibromyalgia TENS UNITS MISC by [facility]Non-Drug; 0 0 01/13/2019 Combo Route) [...] Visit Cardiology Lizeth Frazier MD [facility] [place] [address] [place] [address] (Wo rk) 03/18/2022 Office Visit Neurology Donovan Mayer MD [facility] NEUROLOGY DEPT. [place], [place] [address] (Wo rk) 04/24/2022 Appointment Hematology and Oncology 04/24/2022 Office Visit Hematology and Oncology Renea Navarro MD [facility] HEMATOLOGY/ONCOL OGY DEPT. [place], [place] [address] (Wo rk) documented as of this encounter Procedures Procedure Name Priority Date/Time Associated Diagnosis Comme nts FILM LIBRARY Routine 03/20/2017 12:00 AM Pain Results for this STORAGE ONLY CT EDT procedure ar e in ABDOMEN AND PELVIS the resul ts section. documented in this encounter Results Film Library- Storage Only CT Abdomen & Pelvis (03/20/2017 12:00 AM EDT) Specimen (Source) Anatomical Location Collection Method / Collectio n Time Received Time / Laterality Volume Narrative [facility] - 07/28/2017 6:31 PM EDT This result has an attachment that is no t available. This exam is for storage only and is aut o-finalizing. Coleman Du MD IMG FILM LIBRARY ORDERABLES Performing Organization Address City/State/ZIP Code Phon e Number [place], [place] documented in this encounter Visit Diagnoses Diagnosis Pain Generalized pain documented in this encounter Care Teams Biological Technical Officer Relationship Specialty Start Date End Date Fitz Jenkins MD PCP - General 04/10/10 07/27/17 4 [place] [address] documented as of this encounter
--- OUTSIDE RECORDS SUMMARY | 2021-12-21 00:37 | XMS_ITS | Encounter Summary ---
:1950 Author Organization [facility] [place] [address] Care Team Providers Name Role Phone Fitz Jenkins MD Primary Care Provider [phone] Encounter Details Date Type Department Care Team Description 05/08/2011 Office Visit Psychiatry and Deborah Comer t disorder of Behavioral Health at , PhD initiating or [facility] maintaining sleep [facility] (Primary Dx) [facility] PSYCHIATRY DEPT. [place], [place] [id number] [phone] Social History Tobacco Use Types Packs/Day Years Used Date Never Smoker Alcohol Use Standard Drinks/Week Comments Yes 0 (1 standard drink = 0.6 oz pure alcoho l) social Alcohol Habits Answer Date Recorded How often do you have a drink containing alcohol? Never 04/16/2018 How many drinks containing alcohol do you have on a typical Not asked day when you are drinking? How often do you have six or more drinks on one occasion? No t asked Comment: social 10/19/2010 Sex Assigned at Date Recorded Not on file documented as of this encounter Progress Notes Deborah Comer, PhD - 05/08/2011 9:51 AM EST Behavioral Medicine Service Individual Therapy Followup/Cognitive Behavioral Therapy-- 50 minutes Chief Complaint:sleep S/O: Saundra Blanton returns with her sleep schedule completed. Average sleep duration was 6.9 hours with a range of 6.5-8 hours. Bedtimes ranged from 9:30pm- 12:30am and wakeup times ranged from 6am-7:30am. Ms. Blanton states that she did nap on 5 days for 2 hours when sick for a week. It was agreed that Ms. Blanton has met her treatment goals. The session focused on discussing relapseprevention and writing out a sleep maintenance plan. The plan includes sticking to the sleep schedule, increasing exercise, etc. A: 307.42 myD-H Psychiatry 05/08/2011 ISMAEL-7 2 (Minimal Anxiety) VR12 - Physical Component Summary 29.34 VR12 - Mental Component Summary 63.23 P: Saundra Blanton will follow her sleep maintenance plan independently. It was agreed that she has met her treatment goals so we will terminate active treatment. RTC 2 months for final followup. documented in this encounter Plan of Treatment Upcoming Encounters Date Type Specialty Care Team Description 03/06/2022 Office Visit Cardiology Lizeth Frazier MD [facility] [place], [place] [address] (Wo rk) 03/18/2022 Office Visit Neurology Donovan Mayer MD [facility] NEUROLOGY DEPT. [place], [place] [address] (Wo rk) 04/24/2022 Appointment Hematology and Oncology 04/24/2022 Office Visit Hematology and Oncology Renea Navarro MD [facility] HEMATOLOGY/ONCOL [place] DEPT. 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
--- OUTSIDE RECORDS SUMMARY | 2021-12-21 00:37 | XMS_ITS | Encounter Summary ---
:1950 Author Organization [facility] [place] [address] Care Team Providers Name Role Phone Fitz Jenkins MD Primary Care Provider [phone] Encounter Details Date Type Department Care Team Description 03/08/2013 Orders Only Urology at [facility] Milly Bravo, Angiomyolipoma of kidney [facility] SUZANNE Killian (Primary Dx) [facility] [id number] UROLOGY DEPT. [phone] [place], [place] [address] Social History Tobacco Use Types [...] 03/06/2022 Office Visit Cardiology Lizeth Frazier MD [facility] [address] [place] [address] (Wo rk) 03/18/2022 Office Visit Neurology Donovan Mayer MD [facility] ER NEUROLOGY DEPT. [place], [place] [address] (Wo rk) 04/24/2022 Appointment Hematology and Oncology 04/24/2022 Office Visit Hematology and Oncology Renea Navarro MD [facility] HEMATOLOGY/ONCOL OGY DEPT. [place], [place] [address] (Wo rk) documented as of this encounter Results US retroperitoneal complete (03/09/2013 11:40 AM EDT) Anatomical Region Laterality Modality Abdomen Ultrasound Specimen (Source) Anatomical Collection Method Collection Time Re ceived Time Location / / Volume Laterality 03/09/2013 11:40 AM EDT Narrative 03/09/2013 11:56 AM EDT ? Renal ? (Signed Final 03/09/2013 11 :55 am) Patient Info ID: ? [id number] ? : ??[birth year] (62 yrs) Name: ? SAUNDRA Omar MADHURI ?Visit Date: 03/09/2013 11:34 am Performed By Performed By: ?Joanna Cheng RDMS Associate: ? Talia WHITLEY, Jaime Attending: ? Imer Barahona MD Referred By: ? JENNIFER HENRIQUEZ Service(s) Provided URETRO - Retroperitoneal Complete - [phone] [id number] ? [id number] Indications History of kidney stones Right Kidney Size (cm) ?L: ??10.4 Cortical Thickness: ?Normal Cortical Echogenicity: ?? Normal Hydronephrosis: ?No sonogr aphic evidence ------- Lesions ------- # ?Date ?Location ?Description ? L ? AP ? TV (cm) 1 ?03/09/13 ?MID/Lower ? An giomyolipom ?2.3 ?1.7 ? 2 ?Pole ?a ?Lateral 1 ?03/02/12 ?Lower pole ?An giomyolipom ?1.2 ?1.6 ? 2 ?lateral ? a 1 ?10/30/09 ?Lower pole ?An giomyolipom ?1.1 ?1.2 ?1.1 ?a 2 ?03/09/13 ?Lower pole ?An giomyolipom ?0.5 ?0.7 ?0.6 ?a # ?Date ?Location ?Description ? L ? AP ? TV (cm) 2 ?03/02/12 ?Lower pole ?An giomyolipom ?0.4 ?0.2 ?0.5 ?a 2 ?10/30/09 ?Lower pole ?An giomyolipom ?0.4 ?0.5 ?0.3 ?a Left Kidney Size (cm) ?L: ??11.8 Cortical Thickness: ?Normal Cortical Echogenicity: ?? Normal Hydronephrosis: ?No sonogr aphic evidence ------- Lesions ------- # ?Date ?Location ?Description ? L ? AP ? TV (cm) 1 ?03/09/13 ?Upper pole ?An giomyolipom ?1.4 ?1.8 ?1.4 ?a 1 ?03/02/12 ?Upper pole ?An giomyolipom ?1.6 ?1.2 ?1.4 ?a 1 ?10/30/09 ?Upper pole ?An giomyolipom ?2.4 ?1.6 ?1.4 ?a 2 ?03/09/13 ?Lower pole ?An giomyolipom ?1.9 ?1.5 ?1.6 ?a 2 ?03/02/12 ?Lower pole ?An giomyolipom ?2.6 ?1.4 ?1.5 ?a 2 ?10/30/09 ?Lower pole ?An giomyolipom ?1.7 ?1.3 ?1.4 ?a Urinary Bladder Pre-void (cm) ? L: ??6 ? AP: ??2.8 ? TV: ??5.6 Vol (ml): ?49.3 Comment: ?Partially distended, norm al contour Impression Ultrasound - ??Retroperitoneal Complete - Summary 1) Interval increase in size of a right lower pole angiomyolipoma which now measures 2.3 c m. 2) Unchanged left angiomyolipomas. 3) Partially distended bladder appears normal. I ??viewed the images and agree with minerva allison above interpretation. Thank you for allowing us to participat e in the care of SAUNDRA DHALIWAL. Please do not hesitate to call if you have any questions. ? Omar Todd Electronically Signed Final Report ?? 11:55 am Film and interpretation reviewed by the attending Procedure Note Imer Barahona MD - 03/09/2013Formatt ing of this note might be different from the original. Renal (Signed Final 03/09/2013 11:55 am) Patient Info ID: [id number] : [birth year] (62 yrs ) Name: SAUNDRA DHALIWAL Visit Date: 2012 11:34 am Performed By Performed By: Joanna Cheng RDMS Associate: Jaime Melgar MD Attending: Imer Barahona MD Referred By: JENNIFER HENRIQUEZ Service(s) Provided URETRO - Retroperitoneal Complete - [phone] [id number] Indications History of kidney stones Right Kidney Size (cm) L: 10.4 Cortical Thickness: Normal Cortical Echogenicity: Normal Hydronephrosis: No sonographic evidence ------- Lesions ------- # Date Location Description L AP TV (cm ) 1 03/09/13 MID/Lower Angiomyolipom 2.3 1.7 2 Pole a Lateral 1 03/02/12 Lower pole Angiomyolipom 1.2 1.6 2 lateral a 1 10/30/09 Lower pole Angiomyolipom 1.1 1.2 1.1 a 2 03/09/13 Lower pole Angiomyolipom 0.5 0.7 0.6 a # Date Location Description L AP TV (cm ) 2 03/02/12 Lower pole Angiomyolipom 0.4 0.2 0.5 a 2 10/30/09 Lower pole Angiomyolipom 0.4 0.5 0.3 a Left Kidney Size (cm) L: 11.8 Cortical Thickness: Normal Cortical Echogenicity: Normal Hydronephrosis: No sonographic evidence ------- Lesions ------- # Date Location Description L AP TV (cm ) 1 03/09/13 Upper pole Angiomyolipom 1.4 1.8 1.4 a 1 03/02/12 Upper pole Angiomyolipom 1.6 1.2 1.4 a 1 10/30/09 Upper pole Angiomyolipom 2.4 1.6 1.4 a 2 03/09/13 Lower pole Angiomyolipom 1.9 1.5 1.6 a 2 03/02/12 Lower pole Angiomyolipom 2.6 1.4 1.5 a 2 10/30/09 Lower pole Angiomyolipom 1.7 1.3 1.4 a Urinary Bladder Pre-void (cm) L: 6 AP: 2.8 TV: 5.6 Vol (ml): 49.3 Comment: Partially distended, normal co ntour Impression Ultrasound - Retroperitoneal Complete - Summary 1) Interval increase in size of a right lower pole angiomyolipoma which now measures 2.3 c m. 2) Unchanged left angiomyolipomas. 3) Partially distended bladder appears normal. I viewed the images and agree with the above interpretation. Thank you for allowing us to participat e in the care of SAUNDRA DHALIWAL. Please do not hesitate to call if you have any questions. Imer Barahona MD Electronically Signed Final Report 03/09 11:55 am Film and interpretation reviewed by the attending Coleman Du MD IMG US GEN ORDERABLES documented in this encounter Visit Diagnoses Diagnosis Angiomyolipoma of kidney - Primary Benign neoplasm of kidney, except pelvis Angiomyolipoma of kidney Benign neoplasm of kidney, except pelvis documented in this encounter Care Teams Computer Typesetter Relationship Specialty Start Date End Date Fitz Jenkins MD PCP - General 04/10/10 07/27/[address] [place] [address] documented as of this encounter
--- OUTSIDE RECORDS SUMMARY | 2021-12-21 00:37 | XMS_ITS | Encounter Summary ---
:1950 Author Organization [facility] Address [facility] [place] [address] Care Team Providers Name Role Phone Fitz Jenkins MD Primary Care Provider [phone] Encounter Details Date Type Department Care Team Description 04/29/2014 Orders Only Urology at [facility] Lissy Du MD Benign renal tumor, [facility] uns pec[place] [address] UROLOGY [phone] [place], [place] [address] Social History Tobacco Use Types [...] Lizeth Frazier MD [facility] [place] [address] (Wo rk) 03/18/2022 Office Visit Neurology Thadani, Donovan M , MD [facility] ER NEUROLOGY DEPT. [place], [place] [address] (Wo rk) 04/24/2022 Appointment Hematology and Oncology 04/24/2022 Office Visit Hematology and Oncology Renea Navarro MD [facility] er HEMATOLOGY/ONCOL OGY DEPT. [place], [place] [address] (Wo rk) documented as of this encounter Results US retroperitoneal complete (07/11/2014 3:13 PM EST) Anatomical Region Laterality Modality Abdomen Ultrasound Specimen (Source) Anatomical Collection Method Collection Time Re ceived Time Location / / Volume Laterality 07/11/2014 3:13 PM EST Narrative 07/11/2014 3:21 PM EST Renal ?(Signed Final 07/11/2014 03:19 ? pm) Patient Info ID #: ? [id number] ?: ??[birth year] (64 yrs) Name: ? SAUNDRA DHALIWAL ? Visit Date: 07/11/2014 03:05 pm Performed By Performed By: ?Honey Morrison RDMS Attending: ? Martínez WHITLEY, Magda Monroe Referred By: ? LISSY DU MD Service(s) Provided ??URETRO - Retroperitoneal Complete - 0 [id number] ? [id number] Indications ??benign renal tumor Comparison Ultrasound: 03/09/13 Right Kidney Size (cm) ?L: ??10.1 Cortical Thickness: ?Normal Cortical Echogenicity: ?? Normal Hydronephrosis: ?No sonogr aphic evidence ------- Lesions ------- ??# ?Date ?Location ?Description ?L ? AP ? TV (cm) ??1 ?07/11/14 ?Mid/Lower ? Angiomyolipo ?1.7 ?1.2 ? 2.4 ? Pole ?ma ??# ?Date ?Location ?Description ?L ? AP ? TV (cm) ??1 ?03/09/13 ?MID/Lower ? Angiomyolipo ?2.3 ?1.7 ? 2.0 ? Pole ?ma ? Lateral ??1 ?10/15/12 ?Lower pole ? Angiomyolipo ?1.2 ?1.6 ? 2.0 ? lateral ? ma ??1 ?10/30/09 ?Lower pole ? Angiomyolipo ?1.1 ?1.2 ? 1.1 ? ma ??2 ?07/11/14 ?Mid pole ?Angiomyolipo ?0.7 ?0.5 ? 5.0 ? ma ??2 ?03/09/13 ?Lower pole ? Angiomyolipo ?0.5 ?0.7 ? 0.6 ? ma ??2 ?03/02/12 ?Lower pole ? Angiomyolipo ?0.4 ?0.2 ? 0.5 ? ma ??2 ?10/30/09 ?Lower pole ? Angiomyolipo ?0.4 ?0.5 ? 0.3 ? ma ??3 ?07/11/14 ?Mid pole ?Angiomyolipo ?0.5 ?0.4 ? 0.5 ? ma Left Kidney Size (cm) ?L: ??12.2 Cortical Thickness: ?Normal Cortical Echogenicity: ?? Normal Hydronephrosis: ?No sonogr aphic evidence ------- Lesions ------- ??# ?Date ?Location ?Description ?L ? AP ? TV (cm) ??1 ?07/11/14 ?Upper pole ? Angiomyolipo ?1.8 ?1.6 ? 1.6 ? ma ??1 ?03/09/13 ?Upper pole ? Angiomyolipo ?1.4 ?1.8 ? 1.4 ? ma ??1 ?03/02/12 ?Upper pole ? Angiomyolipo ?1.6 ?1.2 ? 1.4 ? ma ??1 ?10/30/09 ?Upper pole ? Angiomyolipo ?2.4 ?1.6 ? 1.4 ? ma ??2 ?07/11/14 ?Lower pole ? Angiomyolipo ?1.7 ?1.5 ? 1.6 ? ma ??2 ?03/09/13 ?Lower pole ? Angiomyolipo ?1.9 ?1.5 ? 1.6 ? ma ??2 ?03/02/12 ?Lower pole ? Angiomyolipo ?2.6 ?1.4 ? 1.5 ? ma ??2 ?10/30/09 ?Lower pole ? Angiomyolipo ?1.7 ?1.3 ? 1.4 ? ma Urinary Bladder Comment: ?Not distended Impression Ultrasound - ??Retroperitoneal Complete - Summary Bilateral stable small angiomyolipomas with one new 5mm right sided echogenic mass similar to others. 3 right sided AMLs, 2 left sided AMLs I ??viewed the images and agree with minerva allison above interpretation. ? Magda Soliz MD Electronically Signed Final Report ?? 03:19 pm Procedure Note Magda Soliz MD - 07/11/2014Formattin g of this note might be different from the original. Renal (Signed Final 07/11/2014 03:19 pm) Patient Info ID #: [id number] : [birth year] (64 y rs) Name: SAUNDRA DHALIWAL Visit Date: 2014 03:05 pm Performed By Performed By: Honey Morrison RDMS Attending: aMgda Soliz MD Referred By: LISSY DU MD Service(s) Provided URETRO - Retroperitoneal Complete - [phone] [id number] Indications benign renal tumor Comparison Ultrasound: 03/09/13 Right Kidney Size (cm) L: 10.1 Cortical Thickness: Normal Cortical Echogenicity: Normal Hydronephrosis: No sonographic evidence ------- Lesions ------- # Date Location Description L AP TV (cm ) 1 07/11/14 Mid/Lower Angiomyolipo 1.7 1 .2 2.4 Pole ma # Date Location Description L AP TV (cm ) 1 03/09/13 MID/Lower Angiomyolipo 2.3 1 .7 2.0 Pole ma Lateral 1 03/02/12 Lower pole Angiomyolipo 1.2 1.6 2.0 lateral ma 1 10/30/09 Lower pole Angiomyolipo 1.1 1.2 1.1 ma 2 07/11/14 Mid pole Angiomyolipo 0.7 0. 5 5.0 ma 2 03/09/13 Lower pole Angiomyolipo 0.5 0.7 0.6 ma 2 03/02/12 Lower pole Angiomyolipo 0.4 0.2 0.5 ma 2 10/30/09 Lower pole Angiomyolipo 0.4 0.5 0.3 ma 3 07/11/14 Mid pole Angiomyolipo 0.5 0. 4 0.5 ma Left Kidney Size (cm) L: 12.2 Cortical Thickness: Normal Cortical Echogenicity: Normal Hydronephrosis: No sonographic evidence ------- Lesions ------- # Date Location Description L AP TV (cm ) 1 07/11/14 Upper pole Angiomyolipo 1.8 1.6 1.6 ma 1 03/09/13 Upper pole Angiomyolipo 1.4 1.8 1.4 ma 1 03/02/12 Upper pole Angiomyolipo 1.6 1.2 1.4 ma 1 10/30/09 Upper pole Angiomyolipo 2.4 1.6 1.4 ma 2 07/11/14 Lower pole Angiomyolipo 1.7 1.5 1.6 ma 2 03/09/13 Lower pole Angiomyolipo 1.9 1.5 1.6 ma 2 03/02/12 Lower pole Angiomyolipo 2.6 1.4 1.5 ma 2 10/30/09 Lower pole Angiomyolipo 1.7 1.3 1.4 ma Urinary Bladder Comment: Not distended Impression Ultrasound - Retroperitoneal Complete - Summary Bilateral stable small angiomyolipomas with one new 5mm right sided echogenic mass similar to others. 3 right sided AMLs, 2 left sided AMLs I viewed the images and agree with the above interpretation. Magda Soliz MD Electronically Signed Final Report 07/11 03:19 pm Lissy Du MD IMG US GEN ORDERABLES documented in this encounter Visit Diagnoses Diagnosis Benign renal tumor, unspecified laterali ty Benign renal tumor, unspecified laterali ty documented in this encounter Care Teams Technical Administrator Relationship Specialty Start Date End Date Fitz Jenkins MD PCP - General 04/10/10 07/27/[address] [place] [address] documented as of this encounter
--- OUTSIDE RECORDS SUMMARY | 2021-12-21 00:37 | XMS_ITS | Encounter Summary ---
:1950 Author Organization [facility] [place] [address] Care Team Providers Name Role Phone Fitz Jenkins MD Primary Care Provider [phone] Reason for Visit Reason Onset Date Comments Follow-up 04/02/2012 [facility] Encounter Details Date Type Department Care Team Description 04/02[facility]2012 [facility] Petey MONTELONGO MD [address] [place] [address] [facility] [place], [place] [address] (Wo rk) Social History Tobacco [...] this encounter Miscellaneous Notes Telephone Encounter - Raven Martinez LPN - 04/02/2012 11:11 AM EST Voice message with office number left for patient. documented in this encounter Plan of Treatment Upcoming Encounters Date Type Specialty Care Team Description 03/06/2022 Office Visit Cardiology Lizeth Frazier MD [facility] [place], [place] [address] (Wo rk) 03/18/2022 Office Visit Neurology Donovan Mayer MD [facility] NEUROLOGY DEPT. [place], [place] [address] (Wo rk) 04/24/2022 Appointment Hematology and Oncology 04/24/2022 Office Visit Hematology and Oncology Renea Navarro MD [facility] HEMATOLOGY/ONCOL [place] DEPT. [place], [place] [address] (Wo rk) documented as of this encounter Visit Diagnoses Not on filedocumented in this encounter Care Teams Fiscal Officer Relationship Specialty Start Date End Date Fitz Jenkins MD PCP - General 04/10/10 07/27/17 [address] [place] [address] documented as of this encounter
--- OUTSIDE RECORDS SUMMARY | 2021-12-21 00:37 | XMS_ITS | Encounter Summary ---
:1950 Author Organization [facility] [place] [address] Care Team Providers Name Role Phone Fitz Jenkins MD Primary Care Provider [phone] Encounter Details Date Type Department Care Team Description 08/26/2011 Hospital Encounter XRay at [facility] Right knee pain [address] [place] [address] [place] [address] Social History Tobacco Use Types Packs/Day [...] Sig Dispensed Refills Start Date End Date acetaminophen (TYLENOL) Take 1,000 mg by mouth 0 500 mg tablet 2 times daily. loperamide (IMMODIUM) 2 Take 2 mg by mouth 4 0 mg tablet times daily as needed. multivitamin Take 1 tablet by mouth 0 (THERAGRAN) tablet daily. OXYGEN-AIR DELIVERY by Misc.(Non-Drug; 0 SYSTEMS (HORIZON NASAL Combo Route) route CPAP SYSTEM MISC) nightly. levothyroxine Take 37.5 mcg by mouth 0 (SYNTHROID) 25 mcg daily. tablet DULoxetine (CYMBALTA) Take 60 mg by mouth 0 01/13/2019 60 mg daily. Indications: capsuleIndications: Fibromyalgia fibromyalgia gabapentin (NEURONTIN) Take 100 mg by mouth 0 11/27/2016 100 mg capsule nightly. OXYcodone-acetaminophen Take 1 tablet by mouth 0 04/28/2012 (PERCOCET) 5-325 mg per every 4 hours as tablet needed. TENS UNITS MISC by Misc.(Non-Drug; 0 0 01/13/2019 Combo Route) route. Tens machine Daily for back and leg WARFARIN SODIUM Take 5 mg by mouth 0 10/19/2010 1 06/29/2011 (COUMADIN ORAL) daily. 5 mg 4 days/week; 7.5 mg 3 days/week pantoprazole (PROTONIX) Take 40 mg by mouth [...] Cardiology Lizeth Frazier MD [facility] [place], [place] [address] (Wo rk) 03/18/2022 Office Visit Neurology Donovan Mayer MD [facility] NEUROLOGY DEPT. [place], [place] [address] (Wo rk) 04/24/2022 Appointment Hematology and Oncology 04/24/2022 Office Visit Hematology and Oncology Renea Navarro MD [facility] HEMATOLOGY/ONCOL OGY DEPT. [place], [place] [address] (Wo rk) documented as of this encounter Procedures Procedure Name Priority Date/Time Associated Diagnosis Comme nts XR JOINT TEAM Routine 08/26/2011 9:19 AM Right knee pain Resul ts for this ALIGNMENT AP LAT EDT procedure a re in SCHUSS SKYLINE the results section. documented in this encounter Results XR JOINT TEAM ALIGNMENT AP LAT SCHUSS SKYLINE (08/26/2011 9:19 AM EDT) Anatomical Region Laterality Modality N/A Radiographic Imaging Specimen (Source) Anatomical Collection Method Collection Time Re ceived Time Location / / Volume Laterality 08/26/2011 9:19 AM EDT Impressions 08/26/2011 5:22 PM EDT IMPRESSION: 1. ??Minimal degenerative change right k nee, with old healed proximal fibular fracture site. 2. ??Slight genu valgum stance of the le ft knee. Narrative 08/26/2011 5:22 PM EDT STANDING ALIGNMENT AND RIGHT KNEE: INDICATION: ??Right knee pain. STANDING ALIGNMENT: TECHNIQUE: ??Separate images of the pelv is, knees and feet were acquired in the AP projection with the patient standing. ??In addition to routine views of the knee, these images were stitched togethe r to form a composite image of the pelvis and legs allowing for evaluation of lower extremity alignment in the weight bearing position. FINDINGS: ??Right lower extremity mechan ical axis is neutral. ??The left lower extremity mechanical axis is laterally d eviated with the knee held in a slightly valgus stance. RIGHT KNEE: TECHNIQUE: ??AP standing, PA schuss, axi al patellar views of both knees, as well as a lateral view of the right knee. FINDINGS: ??There are minimal medial com partment joint space narrowing, and productive changes. ??No joint effusion is seen. ??Deformity of the proximal fibula is consistent with old healed fra cture. ??No arthropathic changes are seen on the left. Procedure Note Mary Iglesias MD - 08/26/2011Formatt ing of this note might be different from the original. STANDING ALIGNMENT AND RIGHT KNEE: INDICATION: Right knee pain. STANDING ALIGNMENT: TECHNIQUE: Separate images of the pelvis , knees and feet were acquired in the AP projection with the patient standing. In addition to routine views of the knee, these images were stitched togethe r to form a composite image of the pelvis and legs allowing for evaluation of lower extremity alignment in the weight bearing position. FINDINGS: Right lower extremity heat and vent aircraft mechanic al axis is neutral. The left lower extremity mechanical axis is laterally d eviated with the knee held in a slightly valgus stance. RIGHT KNEE: TECHNIQUE: AP standing, PA schuss, axial patellar views of both knees, as well as a lateral view of the right knee. FINDINGS: There are minimal medial liz rtment joint space narrowing, and productive changes. No joint effusion is seen. Deformity of the proximal fibula is consistent with old healed fra cture. No arthropathic changes are seen on the left. IMPRESSION IMPRESSION: 1. Minimal degenerative change right kne e, with old healed proximal fibular fracture site. 2. Slight genu valgum stance of the left knee. Jimbo Johnson MD IMG DX ORDERABLES documented in this encounter Visit Diagnoses Diagnosis Right knee pain Pain in joint, lower leg documented in this encounter Care Teams Veneer Measurer Relationship Specialty Start Date End Date Fitz Jenkins MD PCP - General 04/10/10 07/27/[address] [place] [address] documented as of this encounter
--- OUTSIDE RECORDS SUMMARY | 2021-12-21 00:37 | XMS_ITS | Encounter Summary ---
:1950 Author Organization [facility] [place] [address] Care Team Providers Name Role Phone Fitz Jenkins MD Primary Care Provider [phone] Reason for Visit Reason Comments Follow-up Encounter Details Date Type Department Care Team Description 04/12/2013 Procedure visit Urology at [facility] Lissy Du, Hematuria (Primary [facility] Dx) [facility] [address] UROLOGY [phone] [place], [place] [address] Social History Tobacco Use Types [...] Sign Reading Time Taken Comments Blood Pressure 130/66 04/12/2013 3:16 PM EST Pulse 70 04/12/2013 3:16 PM EST Temperature - - Respiratory Rate - - Oxygen Saturation - - Inhaled Oxygen Concentration - - Weight 108.9 kg (240 lb) 04/12/2013 2:51 PM EST Height 175.3 cm (5' 9) 04/12/2013 2:51 PM EST Body Mass Index 35.44 04/12/2013 2:51 PM EST documented in this encounter Patient Instructions Patient InstructionsIna Doan LPN - 04/12/2013 3:16 PM EST Instructions following Cystoscopy Activity: As tolerated by [...] to void please call our office at [phone] before 5PM or [phone] after hours. Please call if: * you have copious blood in your urine * fevers greater than 101.3 F * you are unable to void The number for questions is [phone] before 5 PM weekdays and [phone] after 5 PM and weekends. Follow-up: In 1 year with a ultrasound to proceed. documented in this encounter Progress Notes Lissy Du MD - 04/12/2013 3:36 PM EST Patient Name: Saundra Blanton MR: [id number] Date of Service: 03/09/13 Primary Care Provider: Elmer Dunn MD [phone] Reason for Visit: Saundra Blanton is a 62 year old woman who is here for completion of a microhematuria w/u. She is followed for bilateral angiomyolipomas. Outside scans reviewed 04/21 CT abdomen 2 left ~1.5 cm AML, 2 right <0.5 cm AML. No hounsfield measurements but clearly appear to be fat. 04/22 CT abdomen No change She has been doing only OK since I saw her. No flank pain. No hematuria, no change in urinary symptoms. She feels she empties ok and is not bothered by her bladder. No UTIs. She has back pain and walks with a cane, she also has an ankle brace. This is stable and is dependent on her activity or weather during the day. Appetite stable, no weight change. Change in PMhx/Pshx since last visit. Back pain undergoing evaluation Cholecystectomy Removal of Gastric Carcinoid Examination: Appears well No adneopthy Abdomen Benign, No CVA tenderness Musculoskeletal: grossly normal Neurologic: grossly normal Labs: None X-rays: 08/22 [facility] U/S AMLS visualised and no change in size as compared with 04/21 CT 10/23 [facility] U/S Slightly larger 1-2mm 10/24 [facility] U/S minimal change all <2cm 10/25 [facility] U/S minimal change all <2cm 10/2009 [facility] U/S minimal change all <2cm 02/27: US: right AML is now 2 cm, about 1 cm larger than 2 years ago. Left AML is stable-reviewed with Dr. Du 02/28: US: Impression Ultrasound - Retroperitoneal Complete - Summary 1) Interval increase in size of a right lower pole angiomyolipoma which now measures 2.3 cm. 2) Unchanged left angiomyolipomas. 3) Partially distended bladder appears normal. 10/2009 PVR by bladder scan = 0 UA: rbc-UA and culture sent Cystoscopy 03/2013: Normal Cytology 03/2013: Pending Impression: Bilateral AML's, asymptomatic. Still all small in size but right is larger over time Negative microhematuria w/u Plan: Renal U/S in 12 months to follow AML's documented in this encounter Procedure Notes Lissy Du MD - 04/12/2013 3:38 PM ESTAssociated Order(s): CYSTOSCOPY Pre-Procedure Diagnose(s): Hematuria Procedure: Flexible Cystoscopy Surgeon: Lissy Du Preoperative Diagnosis: History of microhematuria Post Operative Diagnosis: No evidence of Bladder [...] without difficulty. There were no complications. Lissy Du documented in this encounter Plan of Treatment Upcoming Encounters Date Type Specialty Care Team Description 03/06/2022 Office Visit Cardiology Lizeth Frazier MD [facility] [place], [place] [address] (Wo rk) 03/18/2022 Office Visit Neurology Donovan Mayer MD [facility] NEUROLOGY DEPT. [place], [place] [address] (Wo rk) 04/24/2022 Appointment Hematology and Oncology 04/24/2022 Office Visit Hematology and Oncology Renea Navarro MD [facility] HEMATOLOGY/ONCOL OGY DEPT. [place], [place] [address] (Wo rk) documented as of this encounter Procedures Procedure Name Priority Date/Time Associated Comments Diagnosis CYSTOSCOPY Routine 04/12/2013 3:40 PM Hematuria Results f or this EST procedure are i n the results section. NON-CLOTH SHRINKER FINAL REPORT Routine 04/12/2013 3:16 PM R esults for this EST procedure are i n the results section. CYTOPATHOLOGY Routine 04/12/2013 3:16 PM Hematuria Results for this NON-GYNECOLOGICAL EST procedure are in the results section. documented in this encounter Results Cystoscopy (04/12/2013 3:40 PM EST) Narrative Lissy Du MD - 04/12/2013 3:40 PM EST Lissy Du MD ? 04/12/2013 ??3:40 PM Procedure: Flexible Cystoscopy Surgeon: Lissy Du Preoperative Diagnosis: History of micro hematuria Post Operative Diagnosis: No evidence of Bladder [...] difficulty. There were no compli cations. Lissy Du Procedure Note Lissy Du MD - 04/12/2013 3:38 PM EST Procedure: Flexible Cystoscopy Surgeon: Lissy Du Preoperative Diagnosis: History of micro hematuria Post Operative Diagnosis: No evidence of Bladder [...] without difficulty. There were no complications. Lissy Du Lissy Du MD PROCEDURE ORDERABLES Non-Hired Help Final Report (04/12/2013 3:16 PM EST) Component Value Ref Test Analysis Performed At [facility] Range Method Time Signature Non-Hired Help Final CERNER Report ? [facility] ? Provider: ?? LISSY DU ?Pt. Name: ?? SAUNDRA ZUÑIGA M ? Acc #: ?[id number] ?Pt. MRN: ?[id number] ? Col Date: ?? 04/12/2013 ?/Sex: ?1 ,(63 ? years),Female ? Rec Date: ?? 04/12/2013 ?LOC: ?5B ? CYTOPATHOLOGY: ??NGYN ? ---Adequacy--- ? Specimen submitted is satisfactory. ? ---Cytopathologic Diagnosis--- ? Negative for Malignancy ? 04/13/13 ?Screened by: ? REP ? Rescreened by: ?? [employer]MENT [employer]ES ? 04/19/13 ?Verified by: ? SIGRDI WHITLEY, Coco PATTON ?Pathol ogist ? (Electronic Signature) ? ---Comment--- ? Urine, Voided: ? Urothelial cells, squamous cells, red blood cells and white blood cells ? present. ? ---Clinical Information--- ? Specimen Source: ?Urine, Voided ? Pertinent Clinical Data and Significant Therapy: ?Hematuria ? Clinical Impression: ?Hematuria ? Pertinent Radiologic Findings: ?(not provided) ? Gross Description: ?Received in 50% ETOH, approximately 80 ml. total volume of clear, yellow ? fluid. ?Total Preparation: Liquid Based Prep 1. Specimen (Source) Anatomical Collection Method Collection Time Re ceived Time Location / / Volume Laterality 04/12/2013 3:16 PM EST Lissy Du MD PATHOLOGY/CYTOLOGY ORDERABLE S Performing Organization Address City/[facility] Phon e Number [address] LABORATORY [employer] [facility] Cytopathology Non-Gynecological (04/12/2013 3:16 PM EST) Specimen Anatomical Collection Method Collection Time Receive d Time (Source) Location / / Volume Laterality AP Specimen 04/12/2013 3:16 PM 04/12/201 3 3:16 EST PM EST Narrative [facility] - 04/12/2013 3:[address] Specimen requisition ordered. ??Separate Pathology report to follow Lissy Du MD PATHOLOGY/CYTOLOGY ORDERABLE S Performing Organization Address City/[facility] Code Phon e Number [address] LABORATORY [facility] documented in this encounter Visit Diagnoses Diagnosis Hematuria - Primary Hematuria, unspecified documented in this encounter Care Teams Audio Visual Manager Relationship Specialty Start Date End Date Fitz Jenkins MD PCP - General 04/10/10 07/27/17 [address] [place] [address] documented as of this encounter
--- OUTSIDE RECORDS SUMMARY | 2021-12-21 00:37 | XMS_ITS | Encounter Summary ---
:1950 Author Organization [facility] [address] Care Team Providers Name Role Phone Fitz Jenkins MD Primary Care Provider [phone] Reason for Referral Diagnostic Test (Routine) - Closed Specialty Diagnoses / Procedures Referred By Contact Refer red To Contact Radiology Diagnoses Radiculopathy of lumbar region Donovan Mayer MD [facility] Rad Mri Procedures MRI Lumbar Spine wo Contrast (Generic) [facility] [place] [address] [place] [address] Referral ID Status Reason Start Date Expiration Date Visits V isits Requested Authorized [id number] Closed Specialty 02/19/2017 04/19/2017 1 1 Service Requested Reason for Visit Diagnostic Test (Routine) - Closed Specialty Diagnoses / Procedures Referred By Contact Refer red To Contact Radiology Diagnoses Radiculopathy of lumbar region Donovan Mayer MD [facility] Rad Mri Procedures MRI Lumbar Spine wo Contrast (Generic) [facility] [place] [address] [place] [address] Referral ID Status Reason Start Date Expiration Date Visits V isits Requested Authorized [id number] Closed Specialty 02/19/2017 04/19/2017 1 1 Service Requested Encounter Details Date Type Department Care Team Description 03/04/2017 Hospital Encounter MRI at [facility] Donovan Mayer Radiculopathy of [facility] MD Omar lumbar region [address] [facility] [address] NEUROLOGY DEPT. [phone] [place] [address] Social History Tobacco Use Types Packs/Day Years [...] 0 tablet mouth daily. OXYGEN-AIR DELIVERY by [facility].(Non-Drug; 0 SYSTEMS (HORIZON NASAL Combo Route) route CPAP SYSTEM MISC) nightly. levothyroxine Take 37.5 mcg by 0 (SYNTHROID) 25 mcg mouth daily. tablet gabapentin (NEURONTIN) Take 1 capsule by 90 capsule 3 201609/21/2017 300 mg Capsule mouth nightly. diphenhydrAMINE Take 50 mg by mouth 0 04/08/2018 (BENADRYL) 50 mg Capsule nightly. mometasone (NASONEX) 50 2 sprays by Nasal 0 04/08/2018 mcg/actuation [place], route daily. Non-Aerosol meloxicam (MOBIC) 15 mg [...] Indications: fibromyalgia Fibromyalgia TENS UNITS MISC by [facility].(Non-Drug; 0 0 01/13/2019 Combo Route) [...] Office Visit Cardiology Lizeth Frazier MD [facility] [address] [place] [address] (Wo rk) 03/18/2022 Office Visit Neurology Donovan Mayer MD [facility] NEUROLOGY DEPT. [place], [place] [address] (Wo rk) 04/24/2022 Appointment Hematology and Oncology 04/24/2022 Office Visit Hematology and Oncology Renea Navarro MD [facility] er HEMATOLOGY/ONCOL CLAUDE DEPT. [place], [place] [address] (Wo rk) documented as of this encounter Procedures Procedure Name Priority Date/Time Associated Diagnosis Comme nts MRI LUMBAR SPINE Routine 03/04/2017 12:38 Radiculopathy of Res ults for this WITHOUT CONTRAST PM EDT lumbar region procedure are in the results section. documented in this encounter Results (ABNORMAL) MRI Lumbar Spine wo Contrast (Generic) (03/04/2017 12:38 PM EDT) Anatomical Region Laterality Modality L-spine Magnetic Resonance Specimen (Source) Anatomical Location Collection Method / Collectio n Time Received Time / Laterality Volume Impressions 03/04/2017 1:26 PM EDT 1. Disc degenerative changes as above without visible nerve root impingement. 2. Periaortic and enlarged iliac chain l ymph nodes. This is a nonspecific finding. Consider evaluation with CT of the abdomen and pelvis. Unexpected finding. Comment: The following findings are so c ommon in people without low back pain that while we report their presence, the y must be interpreted with caution and in context of the clinical situation (Re leigha- Enedina et al, Spine 2001). Findings: (Prevalence in patients withou t low back pain), disc degeneration (decreased T2 signal, height loss, bulge ) (91%), disc T2-signal loss (83%), disc height loss (56%), disc bulge (64%), dis c protrusion (32%), annular fissure (38%). Narrative 03/04/2017 1:26 PM EDT EXAMINATION: MRI LUMBAR SPINE WO CONTRAST (GENERIC) CLINICAL HISTORY: Worsening of lumbar ra diculopathy right L5. History of prior back surgery TECHNIQUE: MR of the lumbar spine perfor [facility] without the use of intravenous contrast. COMPARISON: 08/26/2005 FINDINGS: Alignment of the lumbar spine is unchanged. There is no focal, aggressive appearing marrow lesion. A Sc hmorl's node is present in the superior endplate of L3. Normal-appearing conus t erminates at the L1-L2 level. There are enlarged iliac chain lymph nodes, and ly mph nodes in the periaortic region as well. Visualized retroperitoneal structu res are otherwise unremarkable. Findings at specific levels: L1-L2: There is mild disc bulging withou t central canal or foraminal stenosis. L2-L3: There is loss of disc height. Sma ll bilateral foraminal disc protrusions contributing to very mild caudal neural foraminal narrowing. No central canal stenosis. L3-L4: There is mild disc bulging with m inimal caudal neural foraminal narrowing. No central canal stenosis. L4-L5: There is loss of disc height. The re is mild disc bulging and facet arthropathy contributing to mild foramin al narrowing. L5-S1: There are surgical changes. Poste rior disc is present. There is no central canal or foraminal stenosis. Resulting Agency Comment Unexpected Finding Donovan Mayer MD IMG MRI ORDERABLES documented in this encounter Visit Diagnoses Diagnosis Radiculopathy of lumbar region Thoracic or lumbosacral neuritis or radi culitis, unspecified documented in this encounter Care Teams Storekeeper Helper Relationship Specialty Start Date End Date Fitz Jenkins MD PCP - General 04/10/10 07/27/[address] [place] [address] documented as of this encounter
--- OUTSIDE RECORDS SUMMARY | 2021-12-21 00:37 | XMS_ITS | Encounter Summary ---
:1950 Author Organization [facility] [address] Care Team Providers Name Role Phone Fitz Jenkins MD Primary Care Provider [phone] Encounter Details Date Type Department Care Team Description 03/02/2012 Hospital Encounter Ultrasound at [facility] [place] [address] Social History Tobacco Use Types Packs/Day [...] Sig Dispensed Refills Start Date End Date ketoconazole (NIZORAL) Apply topically. 30 g 2 [...] maintenance acetaminophen (TYLENOL) Take 1,000 mg by mouth 0 500 mg tablet 2 times daily. loperamide (IMMODIUM) 2 Take 2 mg by mouth 4 0 mg tablet times daily as needed. multivitamin Take 1 tablet by mouth 0 (THERAGRAN) tablet daily. OXYGEN-AIR DELIVERY by [facility].(Non-Drug; 0 SYSTEMS (HORIZON NASAL Combo Route) route CPAP SYSTEM MIS) nightly. levothyroxine Take 37.5 mcg by mouth [...] as tablet needed. TENS UNITS MISC by [facility].(Non-Drug; 0 0 01/13/2019 [...] Office Visit Cardiology Lizeth Frazier MD [facility] [place] [address] (Wo rk) 03/18/2022 Office Visit Neurology Donovan Mayer MD [facility] ER NEUROLOGY DEPT. [place], [place] [address] (Wo rk) 04/24/2022 Appointment Hematology and Oncology 04/24/2022 Office Visit Hematology and Oncology Renea Navarro MD [facility] HEMATOLOGY/ONCOL OGY DEPT. [place], [place] [address] ( rk) documented as of this encounter Procedures Procedure Name Priority Date/Time Associated Comments Diagnosis US RETROPERITONEAL Routine 03/02/2012 1:21 [place] Result s for this COMPLETE PM EDT procedure are i n the results section. documented in this encounter Results US retroperitoneal complete (03/02/2012 1:21 PM EDT) Anatomical Region Laterality Modality Abdomen Ultrasound Specimen (Source) Anatomical Collection Method Collection Time Re ceived Time Location / / Volume Laterality 03/02/2012 1:21 PM EDT Narrative 03/02/2012 1:28 PM EDT ? Renal ?(Signed Final 03/02/2012 01:27 pm) Patient Info ID: ? [id number] ?: ??[birth year] (61 yrs) Name: ? SAUNDRA DHALIWAL ? Visit Date: 03/02/2012 01:10 pm Performed By Performed By: ? Linda Laurent RDMS Attending: ?Jun WHITLEY, Imer Grewal Referred By: ?LISSY GUTIERREZ D Service(s) Provided URETRO - Retroperitoneal Complete - 002 [id number] ?[id number] Indications bilateral angiomyolipoma Right Kidney Size (cm) ? L: ??10.4 Cortical Thickness: ?Normal Cortical Echogenicity: ?? Normal Hydronephrosis: ?No sonogr aphic evidence ------- Lesions ------- # ? Date ? Location ? Description ? L ?AP ? TV (cm) 1 ? 03/02/12 ?? Upper pole ?Ang iomyolipoma ? 1.2 ? 1.6 ? 2 ?lateral 1 ? 10/30/09 ?? Upper pole ?Ang iomyolipoma ? 1.1 ? 1.2 ?1.1 2 ? 03/02/12 ?? Lower pole ?Ang iomyolipoma ? 0.4 ? 0.2 ?0.5 ?lateral 2 ? 10/30/09 ?? Lower pole ?Ang iomyolipoma ? 0.4 ? 0.5 ?0.3 Left Kidney Size (cm) ? L: ??11.8 Cortical Thickness: ?Normal Cortical Echogenicity: ?? Normal Hydronephrosis: ?No sonogr aphic evidence ------- Lesions ------- # ? Date ? Location ? Description ? L ?AP ? TV (cm) 1 ? 03/02/12 ?? Upper pole ?Ang iomyolipoma ? 1.6 ? 1.2 ?1.4 1 ? 10/30/09 ?? Upper pole ?Ang iomyolipoma ? 2.4 ? 1.6 ?1.4 2 ? 03/02/12 ?? Lower pole ?Ang iomyolipoma ? 2.6 ? 1.4 ?1.5 2 ? 10/30/09 ?? Lower pole ?Ang iomyolipoma ? 1.7 ? 1.3 ?1.4 Urinary Bladder Pre-void (cm) ?L: ??4.5 ? AP: ?? 3 ?TV: ?? 4.5 Vol (ml): ?31.8 Comment: ? Partially distended, nor mal contour Impression Ultrasound - ??Retroperitoneal Complete - Summary Slight interval increase in larger AML right kidney, stable appearing AML in left kidney. ??BLadder OK. I ??viewed the images and agree with minerva allison above interpretation. Thank you for allowing us to participat e in the care of SAUNDRA DHALIWAL. Please do not hesitate to call if you have any questions. ?Imer Barahona MD Electronically Signed Final Report ?? 01:27 pm Procedure Note Imer Barahona MD - 03/02/2012Formatt ing of this note might be different from the original. Renal (Signed Final 03/02/2012 01:27 pm) Patient Info ID: [id number] : [birth year] (61 yrs ) Name: SAUNDRA DHALIWAL Visit Date: 2011 01:10 pm Performed By Performed By: Linda Laurent RDMS Attending: Imer Barahona MD Referred By: LISSY GUTIERREZ D Service(s) Provided URETRO - Retroperitoneal Complete - [phone] [id number] Indications bilateral angiomyolipoma Right Kidney Size (cm) L: 10.4 Cortical Thickness: Normal Cortical Echogenicity: Normal Hydronephrosis: No sonographic evidence ------- Lesions ------- # Date Location Description L AP TV (cm ) 1 03/02/12 Upper pole Angiomyolipoma 1. 2 1.6 2 lateral 1 10/30/09 Upper pole Angiomyolipoma 1. 1 1.2 1.1 2 03/02/12 Lower pole Angiomyolipoma 0. 4 0.2 0.5 lateral 2 10/30/09 Lower pole Angiomyolipoma 0. 4 0.5 0.3 Left Kidney Size (cm) L: 11.8 Cortical Thickness: Normal Cortical Echogenicity: Normal Hydronephrosis: No sonographic evidence ------- Lesions ------- # Date Location Description L AP TV (cm ) 1 03/02/12 Upper pole Angiomyolipoma 1. 6 1.2 1.4 1 10/30/09 Upper pole Angiomyolipoma 2. 4 1.6 1.4 2 03/02/12 Lower pole Angiomyolipoma 2. 6 1.4 1.5 2 10/30/09 Lower pole Angiomyolipoma 1. 7 1.3 1.4 Urinary Bladder Pre-void (cm) L: 4.5 AP: 3 TV: 4.5 Vol (ml): 31.8 Comment: Partially distended, normal co ntour Impression Ultrasound - Retroperitoneal Complete - Summary Slight interval increase in larger AML right kidney, stable appearing AML in left kidney. BLadder O K. I viewed the images and agree with the above interpretation. Thank you for allowing us to participat e in the care of SAUNDRA DHALIWAL. Please do not hesitate to call if you have any questions. Imer Barahona MD Electronically Signed Final Report 03/02 01:27 pm Lissy Gutierrez MD IMG US GEN ORDERABLES documented in this encounter Visit Diagnoses Diagnosis Lipoma Lipoma of unspecified site documented in this encounter Care Teams Registered Physical Therapist Relationship Specialty Start Date End Date Fitz Jenkins MD PCP - General 04/10/10 07/27/17 [address] [place] [address] documented as of this encounter
--- OUTSIDE RECORDS SUMMARY | 2021-12-21 00:37 | XMS_ITS | Encounter Summary ---
:1950 Author Organization [facility] [place] [address] Care Team Providers Name Role Phone Fitz Jenkins MD Primary Care Provider [phone] Reason for Referral Consultation (Routine) - Closed Specialty Diagnoses / Procedures Referred By Contact Refer red To Contact Pain Management Diagnoses Radiculopathy of lumbar region Donovan Mayer MD [facility] [address] [place] [address] [place] [address] [place] [address] Fax: Referral ID Status Reason Start Date Expiration Date Visits V isits Requested Authorized [id number] Closed Consult, 03/04/2017 03/04/2018 1 1 Test & Treat Encounter Details Date Type Department Care Team Description 03/04/2017 Office Visit Neurology at [facility] Donovan Mayer, Radiculopathy of lumbar [facility] [address] NEUROLOGY DEPT. [phone] [place], [place] [address] Social History Tobacco Use Types [...] Sign Reading Time Taken Comments Blood Pressure 130/80 03/04/2017 1:37 PM EDT Pulse - - Temperature - - Respiratory Rate - - Oxygen Saturation - - Inhaled Oxygen Concentration - - Weight 108.9 kg (240 lb) 03/04/2017 1:37 PM EDT Height 175.3 cm (5' 9) 03/04/2017 1:37 PM EDT Body Mass Index 35.44 03/04/2017 1:37 PM EDT documented in this encounter Patient Instructions Patient InstructionsDonovan Mayer MD - 03/04/2017 2:30 PM EDT I think you're doing about the same overall Your MRI of the lumbar spine shows degenerative changes at multiple levels but is fairly unimpressive and does not offer any clear target for another operation. I think we should begin your treatment with a lumbar epidural steroid injection. I'm referring due to the pain clinic here. Your MRI scan incidentally showed some enlarged lymph nodes in your groin and around the aorta. These are probably a persistent reaction to the tumor you had some years ago, and probably do not mean that it has recurred. However this should be investigated further. I suggest to take a copy of her MRI scan to Dr. Quinn who has seen you for surgical follow-up in [facility] and let her decide how to proceed. There are several reasonable approaches, including watchful waiting, doing a CAT scan of your abdomen and pelvis, and actually biopsying a lymph node. If you are not helped by the epidural steroid injection please let me know. Otherwise I would like to see you back in 6 months or sooner if necessary. Donovan Mayer MD Department of Neurology [address] [address], [place] [address] Pager: [phone], #[phone] Email: [email or web address] documented in this encounter Progress Notes Donovan Mayer MD - 03/04/2017 2:30 PM EDT Neurology clinic note Chief [...] in character but had some neuropathic component. Interval history: She is doing reasonably well. She is not complaining of frequent headaches. She gets bad ones less than once a month. These usually respond to Tylenol, occasionally she needs Percocet. She feels her back problems are getting worse. She continues to have some back and leg pain. Her right ankle and foot, where she had the sprain and fracture on the right, improved but now she feels sheis getting more radicular pain and that the right leg is weaker. Her balance remains chronically somewhat bad, but she does quite well walking with a cane. When I saw her a few weeks ago, I thought that her exam was somewhat worse and requested a follow-up MRI scan. This shows degenerative changes at multiple levels but no obviously approachable surgical lesion. There are postsurgical changes at L5-S1. 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 She was recently found to have gastric polyps, and is on antacid therapy. Incidentally, lumbar spine MRI scan shows enlarged inguinal and para-aortic lymph nodes. A CT of abdomen and pelvis was recommended. 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 PMH: Patient Active Problem List Diagnoses Code ??? CIS - Tinea pedis T999.0 ??? Lumbar radiculopathy 724.4 ??? Carcinoid tumor 209.60 ??? Migraine 346.90 ??? Hypothyroid 244.9 ??? Sleep apnea 780.57 ??? Benign renal tumor, some growth noted, but still being followed conservatively 223.0 ??? Depression 311 ??? Hypertension 401.9 ??? Elevated cholesterol 272.0 ??? Obesity 278.00 ??? Solar lentigo 709.09 ??? 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 Right knee pain 719.46 ??? Right ankle pain 719.47 ??? 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 Candidal intertrigo 112.3 ??? SK (seborrheic keratosis) 702.19 ??? Seborrheic keratosis, inflamed 702.11 ROS: She is eating and sleeping alright. Bowel and bladder function are normal. 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 Physical Exam: BP 130/80 Ht 175.3 cm (5' 9) Wt (!) 108.9 kg (240 lb) BMI 35.44 kg/m2 Head, eyes, ears, nose, and throat were normal. Heart and lungs were normal. There are some arthritic deformities of the right ankle and foot She is mentally intact and speech was normal Cranial nerves were normal. Strength was essentially normal, but there is now significant weakness of dorsiflexion of the big toe on the right, and definite weakness of eversion of the right foot Reflexes were 2+, except noteworthy for depressed [...] mouth daily. ??? mometasone (NASONEX) 50 mcg/actuation [place], Non-Aerosol 2 sprays by Nasal route as [...] SYSTEMS (HORIZON NASAL CPAP SYSTEM MISC) by [facility].(Non- Drug; Combo Route) route nightly. ??? TENS UNITS MISC by [facility].(Non-Drug; Combo Route) route. Tens machine Daily for [...] There continue to be several neurological issues here. 1. She has chronic mild lumbar right [...] believe part of the lumbar radiculopathy and getting worse. I think we should proceed with a lumbar epidural steroid injection and Jr referring her for this. If this helps well and good. If not, then I think we should give consideration to electrical studies. Further plans would depend on the results [...] to 300 mg daily at bedtime 4. With regard to other medical problems, particularly given the history of carcinoid tumor, I am somewhat concerned by the finding of pelvic and para- aortic lymphadenopathy on the MRI scan. I have arranged for her to get a copy and she will take it to her surgeon in [facility]. Further evaluation including CT scan of abdomen and pelvis may be indicated. I would defer to Dr. Gupta in this regard. She will f/u with urology for the benign renal tumors next year. Cystoscopy was unremarkable in 2012. I will see her back in 6 months or sooner if necessary. I've asked her to call me if the epidural steroid injection does not help her back and leg problems. Thank you for this consultation. Donovan Mayer MD Department [place] [address] Pager: [phone], #[phone] Email: [email or web address] cc: FITZ Quinn documented in this encounter Plan of Treatment Upcoming Encounters Date Type Specialty Care Team Description 03/06/2022 Office Visit Cardiology Lizeth Frazier MD [facility] er [place], [place] [address] (Wo rk) 03/18/2022 Office Visit Neurology Donovan Mayer MD [facility] NEUROLOGY DEPT. [place], [place] [address] (Wo rk) 04/24/2022 Appointment Hematology and Oncology 04/24/2022 Office Visit Hematology and Oncology Renea Navarro MD [facility] HEMATOLOGY/ONCOL CALI[place] DEPT. [place], [place] [address] (Wo rk) Scheduled Referrals Name Type Priority Associated Diagnoses Order S chedule Referral to Pain Outpatient Referral Routine Radiculopathy of Ordered: Clinic lumbar region 03/04/2017 documented as of this encounter Visit Diagnoses Diagnosis Radiculopathy of lumbar region Thoracic or lumbosacral neuritis or radi culitis, unspecified documented in this encounter Care Teams Rehab Assistant Relationship Specialty Start Date End Date Fitz Jenkins MD PCP - General 04/10/10 07/27/17 [address] [facility] [place] [address] documented as of this encounter
--- OUTSIDE RECORDS SUMMARY | 2021-12-21 00:37 | XMS_ITS | Encounter Summary ---
:1950 Author Organization [facility] [address] Care Team Providers Name Role Phone Fitz Jenkins MD Primary Care Provider [phone] Encounter Details Date Type Department Care Team Description 08/07/2015 Hospital Encounter Ultrasound at [facility] Lissy Du, Renal malignant [facility] tumor, unspecified [address] [facility] laterality [facility] [address] UROLOGY [phone] [place] [address] Social History Tobacco Use Types Packs/Day Years [...] Sig Dispensed Refills Start Date End Date Calcium 500 mg Tab Take 500 mg [...] 0 (THERAGRAN) tablet daily. OXYGEN-AIR DELIVERY by [facility].(Non-Drug; 0 SYSTEMS (HORIZON NASAL Combo Route) route CPAP SYSTEM MIS) nightly. levothyroxine Take 37.5 mcg by mouth 0 (SYNTHROID) 25 mcg daily. tablet sulfamethoxazole-trimet Take 1 tablet by mouth 0 10/31/2015 hoprim (BACTRIM DS) 2 times daily. 800-160 mg Tablet meloxicam (MOBIC) 15 mg Take 15 mg by mouth 0 04/16/2018 Tablet daily. fluticasone (FLONASE) 1 spray 2 times daily 0 04/08/2018 50 mcg/actuation nasal as needed. spray loratadine (CLARITIN) Take 10 mg by mouth 0 10/15/2017 10 mg tablet daily as needed. OXYcodone-acetaminophen Take 1 tablet by mouth 60 tablet 0 04/28/2012 10/15/2017 (PERCOCET) 5-325 mg per 2 times daily as tablet needed. DULoxetine (CYMBALTA) Take 60 mg by mouth 0 01/13/2019 60 mg daily. Indications: capsuleIndications: Fibromyalgia fibromyalgia gabapentin (NEURONTIN) Take 100 mg by mouth 0 11/27/2016 100 mg capsule nightly. TENS UNITS MISC by [facility].(Non-Drug; 0 0 01/13/2019 Combo Route) route. Tens [...] Frazier MD [facility] [place], [place] [address] (Wo rk) 03/18/2022 Office Visit Neurology Donovan Mayer MD [facility] NEUROLOGY DEPT. [place], [place] [address] (Wo rk) 04/24/2022 Appointment Hematology and Oncology 04/24/2022 Office Visit Hematology and Oncology Renea Navarro MD [facility] HEMATOLOGY/ONCOL OGY DEPT. [place], [place] [address] (Wo rk) documented as of this encounter Procedures Procedure Name Priority Date/Time Associated Comments Diagnosis US RETROPERITONEAL Routine 08/07/2015 3:39 Renal malignant Res ults for this COMPLETE PM EDT tumor, unspecified procedure are in laterality the results section. documented in this encounter Results US Retroperitoneal Complete (08/07/2015 3:39 PM EDT) Anatomical Region Laterality Modality Abdomen Ultrasound Specimen (Source) Anatomical Collection Method Collection Time Re ceived Time Location / / Volume Laterality 08/07/2015 3:33 PM EDT Impressions 08/07/2015 4:07 PM EDT Impression Ultrasound - ??Retroperitoneal Complete - Summary 1. ??Apparent interval decrease in size of the mid-lower pole right renal AML. ??Other bilateral renal AMLs (one on the right and two on the left) are l argely stable in size as detailed above. 2. ??5 mm right renal AML seen previous ly (labelled as lesion #3) is not visualized today. 3. ??Unremarkable bladder for degree of distention. I ??viewed the images and agree with minerva allison above interpretation. ?Lelo Trivedi MD Electronically Signed Final Report ?? 04:07 pm Narrative 08/07/2015 4:07 PM EDT Renal ?(Signed Final 08/07/2015 04:07 pm) Patient Info ID #: ? [id number] ?: ??[birth year] (65 yrs) Name: ? SAUNDRA DHALIWAL ? Visit Date: 08/07/2015 03:33 pm Performed By Performed By: ? Aldo Tamez RDMS Attending: ?Lelo Trivedi MD Referred By: ?LISSY DU MD Service(s) Provided ??URETRO - Retroperitoneal Complete - I [id number] ? [id number] Indications ??renal tumo Comparison U/S - RENAL/BLADDER 07/11/14 Right Kidney Size (cm) ?L: ??10.5 Cortical Thickness: ?Normal Cortical Echogenicity: ?? Normal Hydronephrosis: ?No sonogr aphic evidence ------- Lesions ------- ??# ?Date ?Location ?Description ?L ? AP ? TV (cm) ??1 ?08/06/ ?Medial/ ? Angiomyolipo ?1.1 ?1.1 ? 1.2 ? Inferior ?ma ??1 ?07/11/14 ?Mid/Lower ? Angiomyolipo ?1.7 ?1.2 ? 2.4 ? Pole ?ma ??# ?Date ?Location ?Description ?L ? AP ? TV (cm) ??1 ?03/09/ ?MID/Lower ? Angiomyolipo ?2.3 ?1.7 ? 2.0 ? Pole ?ma ? Lateral ??1 ?10/15/12 ?Lower pole ? Angiomyolipo ?1.2 ?1.6 ? 2.0 ? lateral ? ma ??1 ?06/14/10 ?Lower pole ? Angiomyolipo ?1.1 ?1.2 ? 1.1 ? ma ??2 ?08/06/16 ?Mid / ? Angiomyolipo ?0.5 ?0.5 ? 0.3 ? Inferior ?ma ??2 ?07/11/14 ?Mid pole ?Angiomyolipo ?0.7 ?0.5 ? 5.0 ? ma ??2 ?03/09/13 ?Lower pole ? Angiomyolipo ?0.5 ?0.7 ? 0.6 ? ma ??2 ?03/02/12 ?Lower pole ? Angiomyolipo ?0.4 ?0.2 ? 0.5 ? ma ??2 ?10/30/10 ?Lower pole ? Angiomyolipo ?0.4 ?0.5 ? 0.3 ? ma ??3 ?07/11/14 ?Mid pole ?Angiomyolipo ?0.5 ?0.4 ? 0.5 ? ma Comment: ?#3 ??AML seen previously is not visualized today. Left Kidney Size (cm) ?L: ??12.2 Cortical Thickness: ?Normal Cortical Echogenicity: ?? Normal Hydronephrosis: ?No sonogr aphic evidence ------- Lesions ------- ??# ?Date ?Location ?Description ?L ? AP ? TV (cm) ??1 ?08/07/15 ?Upper pole ? Angiomyolipo ?1.4 ?1.7 ? 1.8 ? ma ??1 ?07/11/14 ?Upper pole ? Angiomyolipo ?1.8 ?1.6 ? 1.6 ? ma ??1 ?03/09/13 ?Upper pole ? Angiomyolipo ?1.4 ?1.8 ? 1.4 ? ma ??1 ?03/02/ ?Upper pole ? Angiomyolipo ?1.6 ?1.2 ? 1.4 ? ma ??1 ?10/30/09 ?Upper pole ? Angiomyolipo ?2.4 ?1.6 ? 1.4 ? ma ??2 ?08/07/15 ?Lower pole ? Angiomyolipo ?1.8 ?1.6 ? 1.5 ? ma ??2 ?07/11/14 ?Lower pole ? Angiomyolipo ?1.7 ?1.5 ? 1.6 ? ma ??2 ?03/09/13 ?Lower pole ? Angiomyolipo ?1.9 ?1.5 ? 1.6 ? ma ??2 ?03/02/12 ?Lower pole ? Angiomyolipo ?2.6 ?1.4 ? 1.5 ? ma ??2 ?/14/10 ?Lower pole ? Angiomyolipo ?1.7 ?1.3 ? 1.4 ? ma Urinary Bladder Pre-void (cm) ? L: ??6.1 ? A P: ??7.3 ? TV: ??8.0 Vol (ml): ?186.5 Comment: ?Partially distended, norm al contour Procedure Note Lelo Trivedi MD - 08/07/2015Formatt ing of this note might be different from the original. Renal (Signed Final 08/07/2015 04:07 pm ) Patient Info ID #: [id number] : [birth year] (65 y rs) Name: SAUNDRA DHALIWAL Visit Date: 2015 03:33 pm Performed By Performed By: Aldo Tamez RDMS Attending: Lelo Trivedi MD Referred By: LISSY DU MD Service(s) Provided URETRO - Retroperitoneal Complete - IM [id number] Indications renal tumo Comparison U/S - RENAL/BLADDER 07/11/14 Right Kidney Size (cm) L: 10.5 Cortical Thickness: Normal Cortical Echogenicity: Normal Hydronephrosis: [...] pole Angiomyolipo 1.1 1.2 1.1 ma 2 08/07/15 Mid / Angiomyolipo 0.5 0.5 0 .3 Inferior ma 2 07/11/14 Mid pole Angiomyolipo 0.7 0. 5 5.0 ma 2 03/09/13 Lower pole Angiomyolipo 0.5 0.7 0.6 ma 2 03/02/12 Lower pole Angiomyolipo 0.4 0.2 0.5 ma 2 10/30/09 Lower pole Angiomyolipo 0.4 0.5 0.3 ma 3 07/11/14 Mid pole Angiomyolipo 0.5 0. 4 0.5 ma Comment: #3 AML seen previously is not visualized today. Left Kidney Size (cm) L: 12.2 Cortical Thickness: Normal Cortical Echogenicity: Normal Hydronephrosis: No sonographic evidence ------- Lesions ------- # Date Location Description L AP TV (cm ) 1 08/07/15 Upper pole Angiomyolipo 1.4 1.7 1.8 ma 1 07/11/14 Upper pole Angiomyolipo 1.8 1.6 1.6 ma 1 03/09/13 Upper pole Angiomyolipo 1.4 1.8 1.4 ma 1 03/02/12 Upper pole Angiomyolipo 1.6 1.2 1.4 ma 1 10/30/09 Upper pole Angiomyolipo 2.4 1.6 1.4 ma 2 08/07/15 Lower pole Angiomyolipo 1.8 1.6 1.5 ma 2 07/11/14 Lower pole Angiomyolipo 1.7 1.5 1.6 ma 2 03/09/13 Lower pole Angiomyolipo 1.9 1.5 1.6 ma 2 03/02/12 Lower pole Angiomyolipo 2.6 1.4 1.5 ma 2 10/30/09 Lower pole Angiomyolipo 1.7 1.3 1.4 ma Urinary Bladder Pre-void (cm) L: 6.1 AP: 7.3 TV: 8.0 Vol (ml): 186.5 Comment: Partially distended, normal co ntour IMPRESSION Impression Ultrasound - Retroperitoneal Complete - Summary 1. Apparent interval decrease in size o f the mid-lower pole right renal AML. Other bilateral r enal AMLs (one on the right and two on the left) are l argely stable in size as detailed above. 2. 5 mm right renal AML seen previously (labelled as lesion #3) is not visualized today. 3. Unremarkable bladder for degree of d istention. I viewed the images and agree with the above interpretation. Lelo Trivedi MD Electronically Signed Final Report 08/06 04:07 pm Lissy Du MD IMG US GEN ORDERABLES documented in this encounter Visit Diagnoses Diagnosis Renal malignant tumor, unspecified later ality documented in this encounter Care Teams Window/Distribution Clerk Relationship Specialty Start Date End Date Fitz Jenkins MD PCP - General 04/10/10 07/27/[address] [place] [address] documented as of this encounter
--- OUTSIDE RECORDS SUMMARY | 2021-12-21 00:37 | XMS_ITS | Encounter Summary ---
:1950 Author Organization [facility] [place] [address] Care Team Providers Name Role Phone Fitz Jenkins MD Primary Care Provider [phone] Reason for Referral Consultation (Routine) - Closed Specialty Diagnoses / Procedures Referred By Contact Refer red To Contact Urology Diagnoses Migraine Donovan Mayer MD Seigne, John D, MD [facility] [place]OLOG[place] [address] [place] [address] Fax: Referral ID Status Reason Start Date Expiration Date Visits V isits Requested Authorized [id number] Closed Consult Only 04/18/2011 10/15/2011 1 1 Reason for Visit Reason Comments Back Pain Encounter Details Date Type Department Care Team Description 04/18/2011 Follow-Up Neurology at [facility] Donovan Mayer, Migraine (Primary Dx) [place] [address] NEUROLOGY DEPT. [place], [place] [address] (Wo rk) Social History Tobacco [...] Sign Reading Time Taken Comments Blood Pressure 157/89 04/18/2011 2:52 PM EST Pulse 78 04/18/2011 2:52 PM EST Temperature - - Respiratory Rate - - Oxygen Saturation - - Inhaled Oxygen Concentration - - Weight 113.4 kg (250 lb) 04/18/2011 2:52 PM EST Height 175.3 cm (5' 9) 04/18/2011 2:52 PM EST Body Mass Index 36.92 04/18/2011 2:52 PM EST documented in this encounter Patient Instructions Patient InstructionsDonovan Mayer MD - 04/18/2011 4:03 PM EST I think you are doing well. All neurological problems are stabe including headache, and pinched nerves in your back You will be scheduled to see urology for f/u of the kidney tumors some time next year. documented in this encounter Progress Notes Donovan Mayer MD - 04/18/2011 3:39 PM EST Chief Complaint: Lumbar radiculopathy, headaches, and pain in her feet. History: The patient is seen in followup today. She is doing well. She is not complaining of frequent headaches. She continues to have back and leg pain. Her ankle and foot, where she had the sprain and fracture on the right, are improved. Physical Exam: Her exam is stable. Head, eyes, ears, nose, and throat were normal. Cranial nerves were normal. Strength was essentially normal. Reflexes were noteworthy for depressed (0) right ankle reflex as previously noted. She has patchy sensory loss for pin and vibration in both legs, worse in a right L-5 distribution. Her gait continues to be somewhat ataxic and antalgic, but better than before. Labortory Studies: None today Medications: Current outpatient prescriptions Medication Sig Dispense Refill ??? DULoxetine (CYMBALTA) 60 mg capsule Take 60 mg by mouth daily. Indications: Fibromyalgia ??? gabapentin (NEURONTIN) 100 mg capsule Take 100 mg by mouth daily. ??? loperamide (IMMODIUM) 2 mg tablet Take 2 mg by mouth 4 times daily as needed. ??? multivitamin (THERAGRAN) tablet Take 1 tablet by mouth daily. ??? DISCONTD: OXYcodone-acetaminophen (PERCOCET) 5-325 mg per tablet Take 1 tablet by mouth. 1-2 BID ??? OXYGEN-AIR DELIVERY SYSTEMS (HORIZON NASAL CPAP SYSTEM MISC) by Misc.(Non- Drug; Combo Route) route. ??? TENS UNITS MISC by Misc.(Non-Drug; Combo Route) route. Tens machine Daily for back and leg ??? WARFARIN SODIUM (COUMADIN ORAL) Take 10 mg by mouth daily. ??? pantoprazole (PROTONIX) 40 mg tablet Take 40 mg by mouth daily. ??? simvastatin (ZOCOR) 20 mg tablet Take 20 mg by mouth nightly. ??? levothyroxine (SYNTHROID) 25 mcg tablet Take 25 mcg by mouth daily. ??? valsartan (DIOVAN) 160 mg tablet Take 160 mg by mouth daily. ??? OXYcodone-acetaminophen (PERCOCET) 5-325 mg per tablet Take 1 tablet by mouth every 4 hours as needed. Impression: The situation is improved. 1. She has chronic mild lumbar radiculopathy with symptoms worse on the right. I do not think there is any major deterioration. 2. Most of the pain in her right foot is, I believe, musculoskeletal and related to the fracture andsprain. Symptoms are better. 3. She has chronic headaches that are doing fairly well. 4. There has been concern about recurrence of a carcinoid tumor, but that was apparently ruled by endoscopy done in [facility]. IBS symptoms are under control. 5. For all her chronic pain complaints she is using only tylenol 1000 mg bid prn. I think this is reasonable and I note she cannot tolerate NSAIDs because of the GI problems. She has Percocet to use used as needed for bad days, not more than 2 days in a week, so as not to produce analgesic rebound. 6. She will f/u with urology for the renal tumors next year. I will see her back in 12 months or sooner if necessary. Thank you for this consultation. cc: FITZ JENKINS MD [address] [place] [address] documented in this encounter Plan of Treatment Upcoming Encounters Date Type Specialty Care Team Description 03/06/2022 Office Visit Cardiology Lizeth Frazier MD [facility] Medical [facility] er [place], [place] [address] (Wo rk) 03/18/2022 Office Visit Neurology Donovan Mayer MD [facility] NEUROLOGY DEPT. [place], [place] [address] (Wo rk) 04/24/2022 Appointment Hematology and Oncology 04/24/2022 Office Visit Hematology and Oncology Renea Navarro MD [facility] er HEMATOLOGY/ONCOL OGY DEPT. [place], [place] [address] (Wo rk) Scheduled Referrals Name Type Priority Associated Diagnoses Order S chedule REFERRAL TO Outpatient Referral Routine Migraine Ordered: UROLOGY 04/18/2011 documented as of this encounter Visit Diagnoses Diagnosis Migraine - Primary Migraine, unspecified, without mention o f intractable migraine without mention of status migrainosus documented in this encounter Care Teams Labor Relations Teacher Relationship Specialty Start Date End Date Fitz Jenkins MD PCP - General 04/10/10 07/27/[address] [place] [address] documented as of this encounter
--- OUTSIDE RECORDS SUMMARY | 2021-12-21 00:37 | XMS_ITS | Encounter Summary ---
:1950 Author Organization [facility] [place] [address] Care Team Providers Name Role Phone Fitz Jenkins MD Primary Care Provider [phone] Encounter Details Date Type Department Care Team Description 10/05/2014 Follow-Up Neurology at [facility] Donovan Mayer, Radiculopathy of [facility] [place] [address] NEUROLOGY DEPT. [place], [place] [address] Social History Tobacco Use Types [...] Sign Reading Time Taken Comments Blood Pressure 131/73 10/05/2014 2:12 PM EDT Pulse 77 10/05/2014 2:12 PM EDT Temperature - - Respiratory Rate - - Oxygen Saturation - - Inhaled Oxygen Concentration - - Weight 115.7 kg (255 lb) 10/05/2014 2:12 PM EDT Height 175.3 cm (5' 9) 10/05/2014 2:12 PM EDT Body Mass Index 37.66 10/05/2014 2:12 PM EDT documented in this encounter Patient Instructions Patient InstructionsDonovan Mayer MD - 10/05/2014 3:00 PM EDT I think you're doing quite well. Neurological symptoms appear to be stable. You have persistent mild weakness and sensory loss in the right foot, related I think to pinched nerves in the back, but also to the local injury to the foot. That appears to be stable.Please stay on the gabapentin and duloxetine Headaches appear to be stable. You can continue to use Tylenol as needed At this point I really do not have any other suggestions besides continuing with what you are doing now. If anything changes please let me know. I would like to see you back in a year or sooner if necessary. Donovan Mayer [place] [address] Pager: [phone], #[phone] Email: [email or web address] documented in this encounter Progress Notes Donovan Mayer MD - 10/05/2014 12:28 PM EDT Neurology clinic note Chief Complaint: [...] neuropathic component. Interval history: She is doing well. She is not complaining of frequent headaches. She gets bad ones about once a month. These usually respond to Tylenol occasionally she needs Percocet. She continues to have some back and leg pain. Her right ankle and foot, where she had the sprain andfracture on the right, improved and are now stable. Her balance remains chronically somewhat bad, but she does quite well walking with a cane. 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 Physical Exam: BP 131/73 Pulse 77 Ht 175.3 cm (5' 9) Wt 115.667 kg (255 lb) BMI 37.64 kg/m2 Head, eyes, ears, nose, and throat were normal. Heart and lungs were normal. There are some arthritic deformities of the right ankle and foot She is mentally intact and speech was normal Cranial nerves were normal. Strength was essentially normal, but there is weakness of dorsiflexion of the big toe on the right Reflexes were 2+, except noteworthy for depressed (0-1) right ankle reflex as previously noted. She has patchy sensory loss for pin and vibration in both legs, worse in a right L4-5 distribution. Cerebellar function was normal. Her gait continues to be somewhat ataxic and antalgic, but better than before. Laboratory Studies: None today Medications: Current Outpatient Prescriptions Medication Sig Dispense Refill ??? Calcium 500 mg Tab Take 2 [...] mg capsule Take 100 mg by mouth nightly. ??? loperamide (IMMODIUM) 2 mg tablet Take 2 mg by mouth 4 times daily as needed. ??? multivitamin (THERAGRAN) tablet Take 1 tablet by mouth daily. ??? OXYGEN-AIR DELIVERY SYSTEMS (HORIZON NASAL CPAP SYSTEM MISC) by [facility].(Non- Drug; Combo Route) route nightly. ??? TENS UNITS MISC by [facility].(Non-Drug; Combo Route) route. Tens machine Daily for back and leg ??? pantoprazole (PROTONIX) 40 mg tablet Take 40 mg by mouth daily. ??? simvastatin (ZOCOR) 20 mg tablet Take 20 mg by mouth nightly. ??? levothyroxine (SYNTHROID) 25 mcg tablet Take 25 mcg by mouth daily. ??? valsartan (DIOVAN) 160 mg tablet Take 160 mg by mouth daily. Impression: The situation is stable and somewhat improved. 1. She has chronic mild lumbar right L4-S1 radiculopathy with symptoms and signs worse on the right.I do not think there is any major deterioration. MRI scan in the past showed degenerative changes atmultiple levels and no clear surgical indication. 2. Most of the pain in her right foot is, I believe, musculoskeletal and related to the fracture andsprain. Symptoms are better. She has milder symptoms on the left. The weakness of toe dorsiflexion on the right is I believe part of the lumbar radiculopathy. 3. She has chronic headaches that are doing fairly well. I think CPAP has helped. She can continue to use Tylenol as needed 4. There was concern about recurrence of a carcinoid tumor, but that was ruled out by endoscopy [facility]in [facility]. IBS symptoms are under control. 5. For [...] duloxetine and gabapentin which I think is reasonable 6. She will f/u with urology for the benign renal tumors next year. Cystoscopy was unremarkable in 2012. There is slight enlargement of the tumors. I will see her back in 12 months or sooner if necessary. Thank you for this consultation. Donovan Mayer MD Department [place] [address] Pager: [phone], #[phone] Email: [email or web address] cc: FITZ JENKINS MD documented in this encounter Plan of Treatment Upcoming Encounters Date Type Specialty Care Team Description 03/06/2022 Office Visit Cardiology Lizeth Frazier MD [facility] [address] [place] [address] (Wo rk) 03/18/2022 Office Visit Neurology Donovan Mayer MD [facility] NEUROLOGY DEPT. [place], [place] [address] (Wo rk) 04/24/2022 Appointment Hematology and Oncology 04/24/2022 Office Visit Hematology and Oncology Renea Navarro MD [facility] HEMATOLOGY/ONCOL CLAUDE DEPT. [place], [place] [address] (Wo rk) documented as of this encounter Visit Diagnoses Diagnosis Radiculopathy of lumbosacral region Thoracic or lumbosacral neuritis or radi culitis, unspecified documented in this encounter Care Teams Coverage Specialist Rn Relationship Specialty Start Date End Date Fitz Jenkins MD PCP - General 04/10/10 07/27/[address] [place] [address] documented as of this encounter
--- OUTSIDE RECORDS SUMMARY | 2021-12-21 00:37 | XMS_ITS | Encounter Summary ---
:1950 Author Organization [facility] [place] [address] Care Team Providers Name Role Phone Fitz Jenkins MD Primary Care Provider [phone] Encounter Details Date Type Department Care Team Description 03/09/2013 [place] En[place] [facility] [id number] Social History Tobacco Use Types Packs/Day Years [...] 0 (THERAGRAN) tablet daily. OXYGEN-AIR DELIVERY by [facility] [place] [place].(Non-Drug; 0 SYSTEMS (HORIZON NASAL Combo Route) route CPAP SYSTEM MIS) nightly. levothyroxine Take 37.5 mcg by mouth 0 (SYNTHROID) 25 mcg daily. tablet OXYcodone-acetaminophen Take 1 tablet by mouth 60 tablet 0 04/28/2012 10/15/2017 (PERCOCET) 5-325 mg per 2 times daily as tablet needed. DULoxetine (CYMBALTA) Take 60 mg by mouth 0 01/13/2019 60 mg daily. Indications: capsuleIndications: Fibromyalgia fibromyalgia gabapentin (NEURONTIN) Take 100 mg by mouth 0 11/27/2016 100 mg capsule nightly. TENS UNITS MISC by [facility] [place] [place].(Non-Drug; 0 0 01/13/2019 Combo Route) route. Tens [...] Office Visit Cardiology Lizeth Frazier MD [facility] Medical [facility] [place] [address] (Wo rk) 03/18/2022 Office Visit Neurology Donovan Mayer MD [facility] MEDICAL [facility] NEUROLOGY DEPT. [place], [place] [address] (Wo rk) 04/24/2022 Appointment Hematology and Oncology 04/24/2022 Office Visit Hematology and Oncology Renea Navarro MD [facility] HEMATOLOGY/ONCOL CLAUDE DEPT. [place], [place] [address] (Wo rk) documented as of this encounter Procedures Procedure Name Priority Date/Time Associated Diagnosis Comme nts US RETROPERITONEAL Routine 03/09/2013 11:40 Angiomyolipoma of Results for this COMPLETE AM EDT kidney procedure are i n the results section. documented in this encounter Results US retroperitoneal complete (03/09/2013 11:40 AM EDT) Anatomical Region Laterality Modality Abdomen Ultrasound Specimen (Source) Anatomical Collection Method Collection Time Re ceived Time Location / / Volume Laterality 03/09/2013 11:40 AM EDT Narrative 03/09/2013 11:56 AM EDT ? Renal ? (Signed Final 03/09/2013 11 :55 am) Patient Info ID: ? [id number] ? : ??[birth year] (62 yrs) Name: ? SAUNDRA DHALIWAL ?Visit Date: 03/09/2013 11:34 am Performed By Performed By: ?Joanna Cheng RDMS Associate: ? Jaime Melgar MD Attending: ? Imer Barahona MD Referred By: ? JENNIFER HENRIQUEZ Service(s) Provided URETRO - Retroperitoneal Complete - [phone] [id number] ? [id number] Indications History of kidney stones Right Kidney [...] interpretation. Thank you for allowing us to participyoshi allison in the care of SAUNDRA DHALIWAL. Please do not hesitate to call if you have any questions. ? Omar Todd Electronically Signed Final Report ?? 11:55 am Film and interpretation reviewed by the attending Procedure Note Imer Barahona MD - 03/09/2013Formatt ing of this note might be different from the original. Renal (Signed Final 03/09/2013 11:55 am) Patient Info ID: [id number] : [birth year] (62 yrs ) Name: SAUNDRA DHALIWAL Visit Date: 2012 11:34 am Performed By Performed By: Joanna Cheng RDMS Associate: Jaime Melgar MD Attending: Imer Barahona MD Referred By: JENNIFER HENRIQUEZ Service(s) Provided URETRO - Retroperitoneal Complete - [phone] [id number] Indications History of kidney stones Right Kidney [...] encounter Visit Diagnoses Diagnosis Angiomyolipoma of kidney Benign neoplasm of kidney, except pelvis documented in this encounter Care Teams Measurement And Verification Engineer Relationship Specialty Start Date End Date Fitz Jenkins MD PCP - General 04/10/10 07/27/[address] [place] [address] documented as of this encounter
--- OUTSIDE RECORDS SUMMARY | 2021-12-21 00:37 | XMS_ITS | Encounter Summary ---
:1950 Author Organization [facility] [place] [address] Care Team Providers Name Role Phone Fitz Jenkins MD Primary Care Provider [phone] Reason for Visit Reason Comments Follow-up Encounter Details Date Type Department Care Team Description 07/11/2014 Follow-Up Urology at [facility], DR [address] Angiomyolipoma of kidney, [facility] Coleman Du MD [facility] [place] [address] [place] [id number] Social History Tobacco Use Types Packs/Day Years [...] Sign Reading Time Taken Comments Blood Pressure 162/86 07/11/2014 3:58 PM EST Pulse 84 07/11/2014 3:58 PM EST Temperature - - Respiratory Rate - - Oxygen Saturation 95% 07/11/2014 3:58 PM EST Inhaled Oxygen Concentration - - Weight 115.7 kg (255 lb) 07/11/2014 3:58 PM EST Height 175.3 cm (5' 9) 07/11/2014 3:58 PM EST Body Mass Index 37.66 07/11/2014 3:58 PM EST documented in this encounter Progress Notes Coleman Du MD - 07/11/2014 4:26 PM EST Patient Name: Saundra Blanton MR: [id number] Date of Service: 03/09/13 Primary Care Provider: Elmer Dunn MD [phone] Reason for Visit: Saundra Blanton is a [...] Removal of Gastric Carcinoid Examination: Appears well Not examined today Labs: None X-rays: 08/22 [facility] U/S AMLS visualised and no change in size as compared with 04/21 CT 10/23 [facility] U/S Slightly larger 1-2mm 10/24 [facility] U/S minimal change all <2cm 10/25 [facility] U/S minimal change all <2cm 10/2009 [facility] U/S minimal change all <2cm 02/27: US: [...] right sided AMLs, 2 left sided AMLs 10/2009 PVR by bladder scan = 0 Labs 06/2014: U/A Negative Cystoscopy 03/2013: Normal Cytology 03/2013: Negative Impression: Bilateral AML's, asymptomatic. Still all small in size but right is larger over time Negative microhematuria w/u Plan: Renal U/S in 12 months to follow AML's documented in this encounter Plan of Treatment Upcoming Encounters Date Type Specialty Care Team Description 03/06/2022 Office Visit Cardiology Lizeth Frazier MD [facility] [place], [place] [address] (Wo rk) 03/18/2022 Office Visit Neurology Donovan Mayer MD [facility] NEUROLOGY DEPT. [place], [place] [address] (Wo rk) 04/24/2022 Appointment Hematology and Oncology 04/24/2022 Office Visit Hematology and Oncology Renea Navarro MD [facility] HEMATOLOGY/ONCOL CLAUDE DEPT. [place], [place] [address] (Wo rk) documented as of this encounter Visit Diagnoses Diagnosis Angiomyolipoma of kidney, unspecified la terality documented in this encounter Care Teams Compo Caster Relationship Specialty Start Date End Date Fitz Jenkins MD PCP - General 04/10/10 07/27/17 [address] [place] [address] documented as of this encounter
--- OUTSIDE RECORDS SUMMARY | 2021-12-21 00:37 | XMS_ITS | Encounter Summary ---
:1950 Author Organization [facility] [place] [address] Care Team Providers Name Role Phone Fitz Jenkins MD Primary Care Provider [phone] Reason for Visit Reason Comments Follow-up Encounter Details Date Type Department Care Team Description 03/02/2012 Follow-Up Urology at [facility], [facility] [address]U Angiomyolipoma of kidney [facility] Maria D Gunter APRN [facility] [place] [address] (Primary Dx) [place] [id number] Social History Tobacco Use Types Packs/Day Years [...] Sign Reading Time Taken Comments Blood Pressure 128/40 03/02/2012 2:10 PM EDT Pulse 50 03/02/2012 2:10 PM EDT Temperature - - Respiratory Rate - - Oxygen Saturation - - Inhaled Oxygen Concentration - - Weight 108.4 kg (239 lb) 03/02/2012 2:10 PM EDT Height 175.3 cm (5' 9) 03/02/2012 2:10 PM EDT Body Mass Index 35.29 03/02/2012 2:10 PM EDT documented in this encounter Progress Notes Maria D Gunter, SUZANNE - 03/02/2012 2:29 PM EDT Patient Name: Saundra Blanton MR: [id number] Date of Service: 03/02/12 Primary Care Provider: Elmer Dunn MD [phone] Reason for Visit: Saundra Blanton is a 61 year old woman who is 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 She was last seen in 10/[address] Du. Outside scans reviewed 04/21 CT abdomen 2 [...] a cane, she also has an ankle brace Appetite stable, no weight change. Change in PMhx/Pshx since last visit. Back pain undergoing evaluation Cholecystectomy Removal of Gastric Carcinoid Examination: No adneopthy Abdomen Benign, No CVA tenderness Labs: None X-rays: 08/22 [facility] U/[place] AMLS visualised and no change in size as compared with 04/21 CT 10/23 [facility] U/S Slightly larger 1-2mm 10/24 [facility] U/S minimal change all <2cm 10/25 [facility] U/S minimal change all <2cm 10/2009 [facility] U/S minimal change all <2cm 02/27: US: right AML is now 2 cm, about 1 cm larger than 2 years ago. Left AML is stable-reviewed with Dr. Du 10/2009 PVR by bladder scan = 0 UA: not obtained as she had just voided Impression: Bilateral AML's, asymptomatic. Still all small in size but right is larger than 2 years ago Urinary symptoms-resolved Plan: Renal U/S in 1 year to monitor for change Return if symptoms change, hematuria or increase in urinary symptoms. Maria D Bravo APRN documented in this encounter Plan of Treatment Upcoming Encounters Date Type Specialty Care Team Description 03/06/2022 Office Visit Cardiology Lizeth Frazier MD [facility] er [place], [place] [address] (Wo rk) 03/18/2022 Office Visit Neurology Donovan Mayer MD [facility] NEUROLOGY DEPT. [place], [place] [address] (Wo rk) 04/24/2022 Appointment Hematology and Oncology 04/24/2022 Office Visit Hematology and Oncology Renea Navarro MD [facility] HEMATOLOGY/ONCOL [place] DEPT. [place], [place] [address] (Wo rk) documented as of this encounter Visit Diagnoses Diagnosis Angiomyolipoma of kidney - Primary Benign neoplasm of kidney, except pelvis documented in this encounter Care Teams Risk Developer Relationship Specialty Start Date End Date Fitz Jenkins MD PCP - General 04/10/10 07/27/17 [address] [place] [address] documented as of this encounter
--- OUTSIDE RECORDS SUMMARY | 2021-12-21 00:37 | XMS_ITS | Encounter Summary ---
:1950 Author Organization [facility] [place] [address] Care Team Providers Name Role Phone Fitz Jenkins MD Primary Care Provider [phone] Reason for Visit Reason Comments Right Knee Pain Encounter Details Date Type Department Care Team Description 01/27/2012 Office Visit Orthopaedics at [facility], DR CANTU Right knee pain; [facility] Kade [place]ado [place] [address] Social History Tobacco Use Types Packs/Day [...] documented as of this encounter Progress Notes Rogerio Scott PA - 01/27/2012 1:51 PM EDT PATIENT NAME: Saundra Blanton AGE: 61 y.o. MR#: [id number] DATE OF VISIT: 01/27/2012 STAFF: Covering Physician is Dr. Johnson. CHIEF COMPLAINT: Follow-up right knee and ankle pain HISTORY OF PRESENT ILLNESS Ms. Blanton a 61 y.o. year old female comes into clinic today for right knee and ankle. She notes pain patella tendon in the Winter which prompted her evaluation. She is walking with a walking stick. The pain is decreased, and can recur out of the blue. Her pain does not lastas long and not as intense, occuring every couple of weeks. She is doing pool therapy every couple of weeks. At the pool she is following her PT. She denies swelling, giving out or locking of the knee. She has a history right foot and ankle problems, at her last visit she was prescribed an Amara brace and new New Balance shoes. When she wears during the day she has less pain and swelling at the endof the day. She has lost 25lb since last August with [employer]. She is walking, swimming and gardening. She works for the [employer], working 20 hours. She is doing some standing and sitting about 50% of each. SOCIAL HISTORY: Tobacco: none Alcohol: Very little Occupation: She works at the [employer] Current outpatient prescriptions ordered prior to encounter Medication Sig Dispense Refill ??? acetaminophen (TYLENOL) 500 mg tablet Take [...] Take 1 tablet by mouth daily. ??? OXYcodone-acetaminophen (PERCOCET) 5-325 mg per tablet Take 1 tablet by mouth every 4 hours as needed. ??? OXYGEN-AIR DELIVERY SYSTEMS (HORIZON NASAL CPAP SYSTEM MISC) by [facility] [place] [place].(Non- Drug; Combo Route) route. ??? TENS UNITS MISC by [facility] [place] [place].(Non-Drug; Combo Route) route. Tens machine Daily for back and leg ??? pantoprazole (PROTONIX) 40 mg tablet Take 40 mg by mouth daily. ??? simvastatin (ZOCOR) 20 mg tablet Take 20 mg by mouth nightly. ??? levothyroxine (SYNTHROID) 25 mcg tablet Take 25 mcg by mouth daily. ??? valsartan (DIOVAN) 160 mg tablet Take 160 mg by mouth daily. ??? WARFARIN SODIUM (COUMADIN ORAL) Take 5 mg by mouth daily. 5 mg 4 days/week; 7.5 mg 3 days/week Physical Exam There were no vitals taken for this visit. Constitutional: She is oriented to person, place, and time and well-developed, well-nourished, and in no distress. Skin: Skin is warm and dry. Psych: appropriate affect, mood is upbeat. I have made the following determinations: Knee Exam: Right Prior surgery on this joint: No Gait Abnormality: Antalgic Knee ROM: Extension:0 Flexion: 125 Alignment: 5-10 degrees Valgus Stability: A/P Translation <5mm. Varus (lateral stability) <5mm Valgus (medial stability) <5mm Extension La degrees or less Radiographic evidence of joint damage: [ 0= normal; 1=minimal ; 2= some osteophytes , some narrowing ; 3= moderate osteophytes, significantnarrowing, mild deformity; 4= large osteophytes, marked narrowing, obvious deformity ]: 3= moderate osteophytes, significant narrorwing, mild deformity Patella Tracking: Normal Skin Integrity: Normal Pulses Palpable: Right PT: Yes Right DP:Yes Motor/Sensory: Distal Motor: Normal Distal Sensory: Normal Quadriceps Strength: 4 RIGHT ANKLE/FOOT EXAM: Severe planovalgus/ weakness with dorsal flexion and peroneals. She has a start of a callus over the medial aspect of the longitudinal arch. EHL weakness. Decreased subtalar and ankle motion when compared to the contralateral. AROM DF/5 And PF/30 Sensation intact. No effusion. Able to perform single calf raise, but tender and weak vs left. Neurologic Exam Mental Status Oriented to person, place, and time. Gait, Coordination, and Reflexes Gait Gait: normal RADIOLOGICAL STUDIES: Knee X-rays show some tricompartmental OA of the knee, no changes from the prior. ANKLE XRAYS; 2009/ OSTEOARTHRITIS, PES PLANUS ASSESSMENT/PLAN: Saundra Blanton is a 61 y.o. female presents to the clinic with - Right knee pain with history of tricompartmental OA and right ankle pain with degenerative changes. Since her last visit in October the patient is doing very well. She reports that she is having minimalpain and swelling over the affected areas. Discussed with the patient importance of continued pool therapy and home exercises. Patient will also continue use of an Amara brace for her right ankle anduse of a walking stick to help with ambulation. Physician coverage today is Dr. Johnson Discussed with patient indications for prompt return or to call the clinic if they have any questions, otherwise they will follow-up PRN and with their PCP as scheduled. documented in this encounter Miscellaneous Notes Miscellaneous - Jonnathan Saas Architect - 01/29/2012 1:14 PM EDT documented in this encounter Plan of Treatment Upcoming Encounters Date Type Specialty Care Team Description 03/06/2022 Office Visit Cardiology Lizeth Frazier MD [facility] [address] [place], [place] [address] (Wo rk) 03/18/2022 Office Visit Neurology Donovan Myaer MD [facility] NEUROLOGY DEPT. [place], [place] [address] (Wo rk) 04/24/2022 Appointment Hematology and Oncology 04/24/2022 Office Visit Hematology and Oncology Renea Navarro MD [facility] HEMATOLOGY/ONCOL [place] DEPT. [place], [place] [address] (Wo rk) documented as of this encounter Visit Diagnoses Diagnosis Right knee pain Pain in joint, lower leg Right ankle pain Pain in joint, ankle and foot documented in this encounter Care Teams Ethnology Professor Relationship Specialty Start Date End Date Fitz Jenkins MD PCP - General 04/10/10 07/27/17 [address] [place] [address] documented as of this encounter
--- OUTSIDE RECORDS SUMMARY | 2021-12-21 00:37 | XMS_ITS | Encounter Summary ---
:1950 Author Organization [facility] Address [address] [place] [address] Care Team Providers Name Role Phone Fitz Jenkins MD Primary Care Provider [phone] Reason for Visit Reason Comments Obstructive Sleep Apnea Encounter Details Date Type Department Care Team Description 07/02/2011 Office Visit Sleep Medicine Jimi Gonzalez MD CARLOS (obstructive [facility] sle ep apnea) ([address] Drive [address]) [place] [address] SLEEP DISORDERS [phone] [place] [id number] (Wo rk) Social History Tobacco Use Types [...] Sign Reading Time Taken Comments Blood Pressure 144/88 07/02/2011 10:48 AM EST Pulse 93 07/02/2011 10:48 AM EST Temperature - - Respiratory Rate - - Oxygen Saturation - - Inhaled Oxygen Concentration - - Weight 118.5 kg (261 lb 3.2 oz) 07/02/2011 10:48 AM EST Height 175.3 cm (5' 9) 07/02/2011 10:48 AM EST Body Mass Index 38.57 07/02/2011 10:48 AM EST documented in this encounter Progress Notes Jimi Gonzalez MD - 07/02/2011 11:26 AM EST Sleep Medicine Follow-Up Note IDENTIFYING INFORMATION Patient's Name: Saundra Blanton Date of : 1950 REFERRING PHYSICIAN: None PRIMARY CARE PHYSICIAN: FITZ JENKINS MD Date of Service: 07/02/2011 History of Present Illness: Saundra Blanton is a 61 y.o. female seen for treatment follow-up of obstructive sleep apnea. Treatment: Device: auto-PAP Pressure: 4-16 CWP Interface: nasal mask Chin strap: no Ongoing Complaints While Using PAP: Snoring: Unknown Snort arousals: no Nocturnal gasping: no Observed apneas: Unknown Mouth breathing: No Dry mouth: no Pressure intolerance: no Mask comfort: no mask discomfort reported. Mask leak:: No leak is reported Aerophagia: None Nasal obstruction: yes in winter only Daytime Symptoms: Craig: 5/24 Upon Awakening Refreshed: yes Daytime naps: no Involuntary Dozing: no Cognitive Symptoms: no Driving: No difficulty with drowsiness or dozing at the wheel Close calls related to sleepiness: no Accidents related to sleepiness: no Sleep Pattern: Bedtime: 11 P.M. Rise time: 6:30 A.M. On days off: 7-8 am Shift Work: no Location: Bed alone Head of Bed: flat Preferred Position: Lateral Initial insomnia complaint: No Unexplained arousals: no Nocturia: no Middle or terminal insomnia complaint: no Patient Perceived Overall Treatment Outcome: The patient reports moderate overall improvement since initiation of treatment. Compliance Card Data: Date Range: 04/18/11- 07/01/11 Setting: auto 4-16 CWP % Nights used: 96 % Nights used 4 or more hours: 96 Average usage for days used: 7 h 44 min Time in Large Leak per Night: 0 Residual AHI: 8 Review of Systems: ENT: Nasal Obstruction: occasional, in winter only CONSTITUTIONAL: Weight: Stable Medications: Current outpatient prescriptions:DULoxetine (CYMBALTA) 60 mg capsule, Take 60 mg by mouth daily. Indications: Fibromyalgia, Disp: , Rfl: ; gabapentin (NEURONTIN) 100 mg capsule, Take 100 mg by mouth daily., Disp: , Rfl: ; loperamide (IMMODIUM) 2 mg tablet, Take 2 mg by mouth 4 times daily as needed., Disp: , Rfl: ; multivitamin (THERAGRAN) tablet, Take 1 tablet by mouth daily., Disp: , Rfl: OXYGEN-AIR DELIVERY SYSTEMS (HORIZON NASAL CPAP SYSTEM [facility] [place]), by [facility] [place].(Non-Drug; Combo Route) route., Disp: , Rfl: ; T[facility] UNITS MISC, [facility]Non-Drug; Combo Route) route. Tens machine Daily for back and leg , Disp: , Rfl: ; WARFARIN SODIUM (COUMADIN ORAL), Take 5 mg by mouth daily. 5 mg 4 days/week;7.5 mg 3 days/week, Disp: , Rfl: ; pantoprazole (PROTONIX) 40 mg tablet, Take 40 mg by mouth daily.,Disp: , Rfl: simvastatin (ZOCOR) 20 mg tablet, Take 20 mg by mouth nightly., Disp: , Rfl: ; levothyroxine (SYNTHROID) 25 mcg tablet, Take 25 mcg by mouth daily., Disp: , Rfl: ; valsartan (DIOVAN) 160 mg tablet, Take 160 mg by mouth daily., Disp: , Rfl: ; OXYcodone-acetaminophen (PERCOCET) 5-325 mg per tablet, Take1 tablet by mouth every 4 hours as needed., Disp: , Rfl: Physical Exam: Wt Readings from Last 3 Encounters: 07/02/11 118.48 kg (261 lb 3.2 oz) 04/18/11 113.399 kg (250 lb) 11/12/10 116.574 kg (257 lb) Body mass index is 38.57 kg/(m^2). BP Readings from Last 3 Encounters: 07/02/11 144/88 04/18/11 157/89 11/12/10 127/85 Pulse Readings from Last 3 Encounters: 07/02/11 93 04/18/11 78 11/12/10 69 1.753 m (5' 9) Alert, cooperative female in no distress. Gait and station are normal Respirations are unlabored No unusual mannerisms or behaviors Speech coherent and logical Mood is euthymic Assessment: Saundra Blanton is a 61 y.o., female who is seen for follow-up of obstructive sleep apnea. The pt was referred for CBT-I in October 2010. She has had several sessions with Dr. John and her insomnia has improved substantially. Diagnostic Codes: Obstructive sleep apnea (final) 327.23. Time spent face to face: 30 min. Time spent devoted to counseling and discussion: 15 min. Plan: 1. Auto-PAP at 4-16 CWP via a nasal mask. 2. Follow up in 1 year. documented in this encounter Plan of Treatment Upcoming Encounters Date Type Specialty Care Team Description 03/06/2022 Office Visit Cardiology Lizeth Frazier MD [facility] [address] [place], [place] [address] (Wo rk) 03/18/2022 Office Visit Neurology Donovan Mayer MD [facility] NEUROLOGY DEPT. [place], [place] [address] (Wo rk) 04/24/2022 Appointment Hematology and Oncology 04/24/2022 Office Visit Hematology and Oncology Renea Navarro MD [facility] HEMATOLOGY/ONCOL [place] DEPT. [place], [place] [address] (Wo rk) documented as of this encounter Visit Diagnoses Diagnosis CARLOS (obstructive sleep apnea) - Primary Obstructive sleep apnea (adult) (pediatr ic) documented in this encounter Care Teams Straightening Roll Operator Relationship Specialty Start Date End Date Fitz Jenkins MD PCP - General 04/10/10 07/27/17 [address] [facility] [place] [address] documented as of this encounter
--- OUTSIDE RECORDS SUMMARY | 2021-12-21 00:37 | XMS_ITS | Encounter Summary ---
:1950 Author Organization [facility] [place] [address] Care Team Providers Name Role Phone Fitz Jenkins MD Primary Care Provider [phone] Encounter Details Date Type Department Care Team Description 12/18/2016 Orders Only [place]rology [place] [facility] [place] [address] Social History Tobacco Use Types Packs/Day [...] Frazier MD [facility] er Dr [address] [place] [address] (Wo rk) 03/18/2022 Office Visit Neurology Donovan Mayer MD [facility] NEUROLOGY DEPT. [place], [place] [address] (Wo rk) 04/24/2022 Appointment Hematology and Oncology 04/24/2022 Office Visit Hematology and Oncology Renea Navarro MD [facility] er [facility] [place] [place] [address] (Wo rk) documented as of this encounter Visit Diagnoses Not on filedocumented in this encounter Care Teams Course Developer Relationship Specialty Start Date End Date Fitz Jenkins MD PCP - General 04/10/10 07/27/[address] [place] [address] documented as of this encounter
--- OUTSIDE RECORDS SUMMARY | 2021-12-21 00:37 | XMS_ITS | Encounter Summary ---
:1950 Author Organization [facility] [place] [address] Care Team Providers Name Role Phone Fitz Jenkins MD Primary Care Provider [phone] Encounter Details Date Type Department Care Team Description 12/10/2011 Orders Only [place] [facility] [place] Right knee pain [facility] [address] (Primary Dx) [place] [address] ORTHOPAEDIC SURGERY [place], [place] [address] Social History Tobacco Use Types [...] 03/06/2022 Office Visit Cardiology Lizeth Frazier MD [facility] [address] [place], [place] [address] (Wo rk) 03/18/2022 Office Visit Neurology Donovan Mayer MD [facility] NEUROLOGY DEPT. [place], [place] [address] (Wo rk) 04/24/2022 Appointment Hematology and Oncology 04/24/2022 Office Visit Hematology and Oncology Renea Navarro MD [facility] HEMATOLOGY/ONCOL OGY DEPT. [place], [place] [address] (Wo rk) documented as of this encounter Results XR knee diagnostic 1 or 2 view (01/27/2012 12:33 PM EDT) Anatomical Region Laterality Modality Knee N/A Radiographic Imaging Specimen (Source) Anatomical Collection Method Collection Time Re ceived Time Location / / Volume Laterality 01/27/2012 12:33 PM EDT Narrative 01/27/2012 4:24 PM EDT Examination KNEE 1 OR 2 VIEWS/RIGHT Clinical History Reason for exam and clinical history: R KNEE PAIN; Comparison 08/26/2011. Technique AP standing view of both knees and a lat eral view of the right knee. Findings The right knee shows no sign but no evid ence of effusion. ??There is a healed fracture of the right proximal fibula wh ich is unchanged from prior exam. ?? There is minimal medial joint space narr owing stable relative to prior exam. ?? Minimal degenerative change is seen. ??T here is no significant interval change. Impression ? 1. Minimal degenerative change. ? 2. Healed proximal fibular fractu re, right side. ? 3. No significant interval change is seen. Procedure Note Trina Tong MD - 01/27/2012Form atting of this note might be different from the original. Examination KNEE 1 OR 2 VIEWS/RIGHT Clinical History Reason for exam and clinical history: R KNEE PAIN; Comparison 08/26/2011. Technique AP standing view of both knees and a lat eral view of the right knee. Findings The right knee shows no sign but no evid ence of effusion. There is a healed fracture of the right proximal fibula wh ich is unchanged from prior exam. There is minimal medial joint space narr owing stable relative to prior exam. Minimal degenerative change is seen. The re is no significant interval change. Impression 1. Minimal degenerative change. 2. Healed proximal fibular fracture, ri ght side. 3. No significant interval change is se en. Jimbo Johnson MD IMG DX ORDERABLES documented in this encounter Visit Diagnoses Diagnosis Right knee pain - Primary Pain in joint, lower leg Right knee pain Pain in joint, lower leg documented in this encounter Care Teams Environmental Services Project Manager Relationship Specialty Start Date End Date Fitz Jnekins MD PCP - General 04/10/10 07/27/[address] [place] [address] documented as of this encounter
--- OUTSIDE RECORDS SUMMARY | 2021-12-21 00:37 | XMS_ITS | Encounter Summary ---
:1950 Author Organization [facility] [place] [address] Care Team Providers Name Role Phone Fitz Jenkins MD Primary Care Provider [phone] Reason for Visit Reason Comments Follow-up Encounter Details Date Type Department Care Team Description 03/09/2013 Follow-Up [place] [facility] [place] CANTU Angiomyolipoma of kidney (Pr imary Dx); [facility] Maria D Gunter APRN [facility] [place] [address] [place] [id number] Social History Tobacco Use Types Packs/Day Years [...] Sign Reading Time Taken Comments Blood Pressure 143/83 03/09/2013 12:56 PM EDT Pulse 84 03/09/2013 12:56 PM EDT Temperature - - Respiratory Rate 18 03/09/2013 12:56 PM EDT Oxygen Saturation - - Inhaled Oxygen Concentration - - Weight 108.9 kg (240 lb) 03/09/2013 12:56 PM EDT Height 175.3 cm (5' 9) 03/09/2013 12:56 PM EDT Body Mass Index 35.44 03/09/2013 12:56 PM EDT documented in this encounter Progress Notes Maria D Gunter, NUCLEAR LOGGING ENGINEER - 03/09/2013 12:49 PM EDT Patient Name: Saundra Dhaliwal MR: [id number] Date of Service: 03/09/13 Primary Care Provider: Elmer Dunn MD [phone] Reason for Visit: Saundra Dhaliwal is a 62 year old woman who is 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 Outside scans reviewed 04/21 CT [...] Neurologic: grossly normal Labs: None X-rays: 08/22 [facility] [place] [place] AMLS visualised and no change in size as compared with 04/21 CT 10/23 [facility] Slightly larger 1-2mm 10/24 [facility] minimal change all <2cm 10/25 [facility] minimal change all <2cm 10/2009 [facility] minimal change all [...] = 0 UA: rbc-UA and culture sent Impression: Bilateral AML's, asymptomatic. Still all small in size but right is larger over time Plan: Renal U/S in 6 months to monitor for change. I will see her with Dr. Du at that time. Return if symptoms change, hematuria or increase in urinary symptoms. Will send her urine for microUA and culture today given blood on urine dip. Maria D Bravo APRN documented in this encounter Plan of Treatment Upcoming Encounters Date Type Specialty Care Team Description 03/06/2022 Office Visit Cardiology Lizeth Frazier MD [facility] [address] [place], [place] [address] (Wo rk) 03/18/2022 Office Visit Neurology Donovan Mayer MD [facility] NEUROLOGY DEPT. [place], [place] [address] (Wo rk) 04/24/2022 Appointment Hematology and Oncology 04/24/2022 Office Visit Hematology and Oncology Renea Navarro MD [facility] HEMATOLOGY/ONCOL OGY DEPT. [place], [place] [address] (Wo rk) documented as of this encounter Procedures Procedure Name Priority Date/Time Associated Comments Diagnosis URINALYSIS WITH Routine 03/09/2013 1:08 PM Hematuria Result s for this REFLEX CULTURE EDT procedure are in the results section. URINE CULTURE Routine 03/09/2013 1:08 PM Hematuria Results for this EDT procedure are i n the results section. documented in this encounter Results (ABNORMAL) Urinalysis with microscopic (03/09/2013 1:08 PM EDT) Patholo gist Method Time Signature Glucose UA Negative Negative CERNER mg/dL MILLENNIUM Protein UA Negative mg/dL CERNER MILLENNIUM Bilirubin UA Negative Negative CERNER mg/dL [place] Urobilinogen UA Normal mg/dL CERNER MILLENNIUM pH UA 6.0 5.0 - 8.0 CERNER MILLENNIUM Blood UA Trace (A) Neg CERNER MILLENNIUM Ketones UA Negative mg/dL CERNER MILLENNIUM Nitrite UA Negative CERNER MILLENNIUM Leukocytes UA Negative mcL CERNER MILLENNIUM Appearance UA Clear Clear CERNER MILLENNIUM Spec [place] UA 1.019 1.002 - CERNER 1.030 MILLENNIUM Color UA Yellow Yellow CERNER MILLENNIUM RBC UA 3 0 - 4 /HPF CERNER MILLENNIUM WBC UA 1 0 - 5 /HPF CERNER MILLENNIUM Squam Epith UA <1 <=4 /HPF CERNER MILLENNIUM Specimen Anatomical Collection Method Collection Time Receive d Time (Source) Location / / Volume Laterality Urine specimen 03/09/2013 1:08 PM 013 1:44 (specimen) EDT PM EDT Resulting Agency Comment Spec In Lab Kamille De La Rosa Jr., MD URINE ORDERABLES Performing Organization Address City/State/[place] [address] [facility] Urine culture Clean Catch Urine (03/09/2013 1:08 PM EDT) [facility] gist Method Time Signature Urine Culture CERNER ? Patient Name: SAUNDRA DHALIWAL ? Ordered By: KAMILLE DE LA ROSA JR [facility] ? MR#: [id number] ?LOC: ??5B ? /Sex: ??1950 (62 years), ? Female ? PROCEDURE: Urine Culture ?SOURCE: U CC ? COLLECTED: 03/09/2013 13:08 ? STARTED: 03/09/2013 13:49 ? FINAL REPORT ? Final Report ? Verified:03/10/2013 07:21 ? No growth (Less than 1,000 cfu/ml). ? Specimen (Source) Anatomical Collection Method Collection Time Re ceived Time Location / / Volume Laterality Urine specimen 03/09/2013 1:08 03/09/2013 1:49 obtained by clean PM EDT PM EDT catch procedure (specimen) Resulting Agency Comment Spec In Lab Kamille De La Rosa Jr., MD MICROBIOLOGY - GENERAL ORDER LASHAY Performing Organization Address City/State/[place]IP [place] [address] [facility] documented in this encounter Visit Diagnoses Diagnosis Angiomyolipoma of kidney - Primary Benign neoplasm of kidney, except pelvis Hematuria Hematuria, unspecified documented in this encounter Care Teams Senior Linux Systems Engineer Relationship Specialty Start Date End Date Fitz Jenkins MD PCP - General 04/10/10 07/27/17 [address] [place] [address] documented as of this encounter
--- OUTSIDE RECORDS SUMMARY | 2021-12-21 00:37 | XMS_ITS | Encounter Summary ---
:1950 Author Organization [facility] [place] [address] Care Team Providers Name Role Phone Fitz Jenkins MD Primary Care Provider [phone] Reason for Referral Diagnostic Test (Routine) - Closed Specialty Diagnoses / Procedures Referred By Contact Refer red To Contact Radiology Diagnoses Radiculopathy of lumbar region Donovan Mayer MD [facility] Rad Mri Procedures MRI Lumbar Spine wo Contrast (Generic) [facility] [place] [address] [place] [address] Referral ID Status Reason Start Date Expiration Date Visits V isits Requested Authorized [id number] Closed Specialty 02/19/2017 04/19/2017 1 1 Service Requested Encounter Details Date Type Department Care Team Description 11/27/2016 Office Visit Neurology at [facility] Donovan Mayer, Radiculopathy of lumbar [facility] [address] NEUROLOGY DEPT. [phone] [place], [place] [address] Social History Tobacco Use Types [...] Sign Reading Time Taken Comments Blood Pressure 123/58 11/27/2016 4:21 PM EDT Pulse 84 11/27/2016 4:21 PM EDT Temperature - - Respiratory Rate - - Oxygen Saturation - - Inhaled Oxygen Concentration - - Weight 112.2 kg (247 lb 6.4 oz) 11/27/2016 4:21 PM EDT Height 175.3 cm (5' 9) 11/27/2016 4:21 PM EDT reported Body Mass Index 36.53 11/27/2016 4:21 PM EDT documented in this encounter Patient Instructions Patient InstructionsDonovan Mayer MD - 11/27/2016 4:30 PM EDT I think you're doing about the same overall. There is some increase in weakness as well as pain symptoms in the legs, and the weakness is more inthe right leg with upward movement of the foot. At this point I would recommend repeating an MRI scan of the lumbar spine. I will arrange for this I will rewrite your prescription for a brace. It is reasonable to increase your dose of gabapentin from 100 mg at night to 300 mg at night. I haverewritten your prescription I would like to see you back after your MRI Please call with any problems in the meantime Donovan Mayer MD Department of Neurology [address] [address], [place] [address] Pager: [phone], #[phone] Email: [email or web address] documented in this encounter Progress Notes Donovan Mayer MD - 11/27/2016 4:30 PM EDT Neurology clinic note Chief Complaint: [...] renal tumors which are stable at present. 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 Physical Exam: BP 123/58 (BP Location (NBP): Left arm, Patient Position: Sitting, BP Cuff Sizes: Large Adult (32-43cm)) Pulse 84 Ht 175.3 cm (5' 9) Comment: reported Wt (!) 112.2 kg (247 lb 6.4 oz) BMI 36.53 kg/m2 Head, eyes, ears, nose, and throat [...] antalgic, but better than before. Laboratory Studies: Orders Placed This Encounter Procedures ??? MRI Lumbar Spine wo Contrast (Generic) Medications: Current Outpatient Prescriptions Medication Sig Dispense Refill ??? diphenhydrAMINE (BENADRYL) 50 mg Capsule Take 50 mg by mouth nightly. ??? cholecalciferol, Vitamin D3, 1,000 unit Tablet Take 1,000 Units by mouth daily. ??? mometasone (NASONEX) 50 mcg/actuation Christine, Non-Aerosol 2 sprays by Nasal route as [...] SYSTEMS (HORIZON NASAL CPAP SYSTEM MISC) by [facility].(Non- Drug; Combo Route) route nightly. ??? TENS UNITS MISC by [facility].(Non-Drug; Combo Route) route. Tens machine Daily for [...] facility-administered medications for this visit. Impression: There are several issues here. 1. She has chronic mild lumbar right L4-S1 radiculopathy with symptoms and signs, as noted above, worse on the right. At this point I do think there is a definite deterioration, and we should repeat anMRI scan of the lumbar spine. I will arrange for this. Depending on the findings she may be a candidate for more surgery. I will review the MRI, consider obtaining additional electrical studies, and depending on the findings may send her back to Dr. Roth who had seen her previously. Some of the pain in her right foot is, I believe, musculoskeletal and related to the fracture and sprain. Symptoms are better. She has milder symptoms on the left. The weakness of toe dorsiflexion and foot eversion on the right is I believe part of the lumbar radiculopathy and getting worse. While we are reevaluating her, I have rewritten the prescription for her brace which is wearing out. The patient remains fully ambulatory, and needs a properly functional brace in order not to be restricted with regard to walking. Her current brace is worn out. Owing to her size and weight and some arthritic deformities of the foot and ankle I do not think that [id number] item will work. She needsthis long-term, more than 6 months, and needs it custom-made to control ankle movement in more than one plane. I think she had at present has worked quite well for several years 2. She has chronic headaches that are [...] to 300 mg daily at bedtime 4. There was concern about recurrence of a carcinoid tumor, but that was ruled out by [facility]oscopy [facility] a few years ago.. IBS symptoms are under control. She was recently found to have gastric polyps for which she is on acid suppression. She will f/u with urology for the benign renal tumors next year. Cystoscopy was unremarkable in 2013. I will see her back in a few weeks, in conjunction with her MRI.. Thank you for this consultation. Donovan Mayer MD [place] [address] Pager: [phone], #[phone] Email: [email or web address] cc: FITZ JENKINS MD documented in this encounter Plan of Treatment Upcoming Encounters Date Type Specialty Care Team Description 03/06/2022 Office Visit Cardiology Lizeth Frazier MD [facility] er [place], [place] [address] (Wo rk) 03/18/2022 Office Visit Neurology Donovan Mayer MD [facility] NEUROLOGY DEPT. [place], [place] [address] (Wo rk) 04/24/2022 Appointment Hematology and Oncology 04/24/2022 Office Visit Hematology and Oncology Renea Navarro MD [facility] HEMATOLOGY/ONCOL OGY DEPT. [place], [place] [address] (Wo rk) documented as of this encounter Results (ABNORMAL) MRI Lumbar Spine [...] TECHNIQUE: MR of the lumbar spine perfor [facility] without the use of intravenous contrast. [...] neuritis or radi culitis, unspecified Radiculopathy of lumbar region Thoracic or lumbosacral neuritis or radi culitis, unspecified documented in this encounter Care Teams Movie Extra Relationship Specialty Start Date End Date Fitz Jenkins MD PCP - General 04/10/10 07/27/[address] [place] [address] documented as of this encounter
--- OUTSIDE RECORDS SUMMARY | 2021-12-21 00:37 | XMS_ITS | Encounter Summary ---
:1950 Author Organization [facility] [place] [address] Care Team Providers Name Role Phone Ingrid Espinosa Uriel PALACIOS Primary Care Provider Encounter Details Date Type Department Care Team Description 05/23/2014 Abstract Mirna Reddy Conversion Apd Conversion, Flowsheet Results Provider, [place] [address] Social History Tobacco Use Types Packs/Day [...] Sign Reading Time Taken Comments Blood Pressure 158/89 05/23/2014 9:00 Sourced from APD AM EST Conversion Pulse - - Temperature - - Respiratory Rate - - Oxygen Saturation - - Inhaled Oxygen - - Concentration Weight 118.4 kg (261 lb 0.4 05/23/2014 9:00 Sourced fro m APD oz) AM EST Conversion Height 175 cm (5' 8.9) 05/23/2014 9:00 Sourced from AP D AM EST Conversion Body Mass Index 38.66 05/23/2014 9:00 AM EST documented in this encounter Plan of Treatment Upcoming Encounters Date Type Specialty Care Team Description 03/06/2022 Office Visit Cardiology Lizeth Frazier MD [facility] er [place], [place] [address] (Wo rk) 03/18/2022 Office Visit Neurology Donovan Mayer MD [facility] NEUROLOGY DEPT. [place], [place] [address] (Wo rk) 04/24/2022 Appointment Hematology and Oncology 04/24/2022 Office Visit Hematology and Oncology Renea Navarro MD [facility] HEMATOLOGY/ONCOL CLAUDE DEPT. [place], [place] [address] (Wo rk) documented as of this encounter Visit Diagnoses Not on filedocumented in this encounter Care Teams Interactive Multimedia Designer Relationship Specialty Start Date End Date Ingrid Espinosa APRN PCP - General Internal Medicine 07/28/17 [address] [place] [address] documented as of this encounter
--- OUTSIDE RECORDS SUMMARY | 2021-12-21 00:37 | XMS_ITS | Encounter Summary ---
:1950 Author Organization [facility] [place] [address] Care Team Providers Name Role Phone Fitz Jenkins MD Primary Care Provider [phone] Reason for Visit Reason Comments Skin Check Encounter Details Date Type Department Care Team Description 03/02/2012 Follow-Up Dermatology Esequiel Duggan (Primary Dx); [facility] MD REGINALD Candidal intertrigo; [facility] SK (seborrheic keratosis); [place] [address] Seborrheic keratosis, inflamed [phone] [facility] [address] [place] [id number] (Wo rk) Social History Tobacco Use Types [...] documented as of this encounter Progress Notes Esequiel Duggan III, MD - 03/02/2012 3:20 PM EDT DERMATOLOGY ESTABLISHED PATIENT CLINIC NOTE Date of service: 03/02/2012 Saundra Blanton : 1950 Provider: Esequiel Duggan MD PROBLEM: Annual skin exam SKIN HISTORY: Lentigines and solar lentigines Schreiber Angiomas HPI Saundra Blanton is a 61 y.o. year old female. Her today for a full skin exam. She has a yeast infection under her breasts and in the folds of skin on her lower abdomen that she has been treating for years with Nystatin powder. She monitors her skin and has not had other problems that she is aware of. ADR: Allergies Allergen Reactions ??? Latex Red welts and rash ??? Sulfa(sulfonamide Antibiotics) Rash ??? Codeine Phos ??? Hydrocodone ??? Gluten ROS General: feeling well Skin: denies other skin complaints EXAM General: NAD, pleasant, cooperative Skin:A total body skin exam except for the genitalia was performed. This includes examination of theskin of the face, ears, neck, chest, axillae, left and right upper and lower extremities, hands, feet, abdomen, back, and buttocks. The genitalia, perineum, and perianal areas were not examined. Significant skin findings: A. Reddish pink areas with mild inflammation under breasts and skin folds on lower abdomen B. Irritated brown papules with waxy, stuck-on appearance in between breasts, left hip ASSESSMENT/PLAN: A. Intertrigo, I discussed this condition with the patient and recommended mixing together Ketoconazole cream and Desonide cream, apply 1-2 times daily for 1-2 weeks, until clear, then as needed on weekends for maintenance. Keep area clean and dry. Use Nystatin powder when yeast is under control to help prevent recurrence. B. Seborrheic Keratoses, between the breasts and on the left lower abdomen- irritated. Procedure(s): Destruction of lesion(s) with cryotherapy. Number : 3 Discussed procedure and expectations including risks (including risk of hypopigmentation) and benefits. Verbal consent obtained. Frozen with LN2, 15-30 second thaw time, TWICE. There were no complications; the patient tolerated the procedure well. Post-procedure expectations and wound care were reviewed. Follow up in one year. Observe closely for skin damage/changes, and call if such occurs. Call if areas do not resolve as expected or problems arise. Note initiated by: ALEXANDRA RAMIREZ LPN Routed to physician for review and changes: Esequiel Duggan MD Section of Dermatology [facility] documented in this encounter Plan of Treatment Upcoming Encounters Date Type Specialty Care Team Description 03/06/2022 Office Visit Cardiology Lizeth Frazier MD [facility] [place], [place] [address] (Wo rk) 03/18/2022 Office Visit Neurology Donovan Mayer MD [facility] NEUROLOGY DEPT. [place], [place] [address] (Wo rk) 04/24/2022 Appointment Hematology and Oncology 04/24/2022 Office Visit Hematology and Oncology Renea Navarro MD [facility] HEMATOLOGY/ONCOL [place] DEPT. [place], [place] [address] (Wo rk) documented as of this encounter Visit Diagnoses Diagnosis Intertrigo - Primary Other specified erythematous condition Candidal intertrigo Candidiasis of skin and nails SK (seborrheic keratosis) Other seborrheic keratosis Seborrheic keratosis, inflamed Inflamed seborrheic keratosis documented in this encounter Care Teams Button Clamper Relationship Specialty Start Date End Date Fitz Jenkins MD PCP - General 04/10/10 07/27/17 [address] [place] [address] documented as of this encounter
--- OUTSIDE RECORDS SUMMARY | 2021-12-21 00:37 | XMS_ITS | Encounter Summary ---
:1950 Author Organization [facility] [place] [address] Care Team Providers Name Role Phone Fitz Jenkins MD Primary Care Provider [phone] Encounter Details Date Type Department Care Team Description 02/26/2016 Ancillary Procedure [facility] [address] [place] [id number] [phone] (Wo rk) Social History Tobacco Use Types [...] Office Visit Cardiology Lizeth Frazier MD [facility] [place] [address] (Wo rk) 03/18/2022 Office Visit Neurology Donovan Mayer MD [facility] NEUROLOGY DEPT. [place], [place] [address] (Wo rk) 04/24/2022 Appointment Hematology and Oncology 04/24/2022 Office Visit Hematology and Oncology Renea Navarro MD [facility] HEMATOLOGY/ONCOL OGY DEPT. [place], [place] [address] (Wo rk) documented as of this encounter Procedures Procedure Name Priority Date/Time Associated Diagnosis Comme nts FILM LIBRARY Routine 02/26/2016 12:00 AM Results for this STORAGE ONLY MAMMO EDT procedure are in the results section. documented in this encounter Results Film Library- Storage Only Mammo (02/26/2016 12:00 AM EDT) Specimen (Source) Anatomical Location Collection Method / Collectio n Time Received Time / Laterality Volume Narrative [facility] - 07/14/2020 4:42 PM EST This exam is auto-finalizing. It's purpo se is for storage only. Ingrid Espinosa APRN IMG FILM LIBRARY ORDERABLES Performing Organization Address City/State/ZIP Code Phon e Number [place], [place] documented in this encounter Visit Diagnoses Not on filedocumented in this encounter Care Teams Special Delivery Carrier Relationship Specialty Start Date End Date Fitz Jenkins MD PCP - General 04/10/10 07/27/[address] [place] [address] documented as of this encounter
--- OUTSIDE RECORDS SUMMARY | 2021-12-21 00:37 | XMS_ITS | Encounter Summary ---
:1950 Author Organization [facility] [place] [address] Care Team Providers Name Role Phone Fitz Jenkins MD Primary Care Provider Encounter Details Date Type Department Care Team Description 08/07/2015 Office Visit Urology at [facility] Coleman Du, Angiomyolipoma of kidney [facility] [address] UROLOGY [phone] [place], [place] [address] Social History Tobacco Use Types [...] Sign Reading Time Taken Comments Blood Pressure 129/63 08/07/2015 4:19 PM EDT Pulse 70 08/07/2015 4:19 PM EDT Temperature - - Respiratory Rate - - Oxygen Saturation 96% 08/07/2015 4:19 PM EDT Inhaled Oxygen Concentration - - Weight 113.4 kg (250 lb) 08/07/2015 4:19 PM EDT Height - - Body Mass Index 36.92 10/05/2014 2:12 PM EDT documented in this encounter Progress Notes Farnaz Huertas - 08/11/2015 3:43 PM EDT Reminder entered Maria D Gunter APRN - 08/07/2015 4:10 PM EDT Patient Name: Saundra Blanton MR: [id number] Date of Service: 08/07/15 Primary Care Provider: Elmer Dunn MD [phone] Reason for Visit: Saundra Blanton is a [...] F32.9 ??? Hypertension I10 ??? Elevated cholesterol E78.0 ??? Obesity E66.9 ??? Solar lentigo L81.4 ??? 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 Right knee pain M25.561 ??? Right ankle pain M25.571 ??? 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 Candidal intertrigo B37.2 ??? SK (seborrheic keratosis) L82.1 ??? Seborrheic keratosis, inflamed L82.0 Examination: Appears well, NAD abd soft, nontender, no masses or cva tenderness. Walks with a cane Otherwise grossly normal Labs: None X-rays: 08/22 [facility] U/S AMLS visualised and no change in size as compared with 04/21 CT 10/23 [facility] U/S Slightly larger 1-2mm 10/24 [facility] U/S minimal change all <2cm 10/25 [facility] U/S minimal change all <2cm 10/2009 [facility] U/S minimal change all [...] plan of care Maria D Bravo APRN documented in this encounter Miscellaneous Notes Addendum Note - Kelin Michel RN - 08/07/2015 4:35 PM EDT Addended by: KELIN MICHEL on: 08/07/2015 04:35 PM Modules accepted: Orders documented in this encounter Plan of Treatment Upcoming Encounters Date Type Specialty Care Team Description 03/06/2022 Office Visit Cardiology Martha Frazier MD [facility] [place] [address] (Wo rk) 03/18/2022 Office Visit Neurology Donovan Mayer MD [facility] NEUROLOGY DEPT. [place], [place] [address] (Wo rk) 04/24/2022 Appointment Hematology and Oncology 04/24/2022 Office Visit Hematology and Oncology Renea Navarro MD [facility] HEMATOLOGY/ONCOL OGY DEPT. [place], [place] [address] (Wo rk) documented as of this encounter Procedures Procedure Name Priority Date/Time Associated Diagnosis Comme nts URINALYSIS WITH Routine 08/07/2015 4:35 PM Angiomyolipoma of R esults for this REFLEX CULTURE EDT kidney procedure are in the results section. documented in this encounter Results (ABNORMAL) Urinalysis with reflex Culture (08/07/2015 4:35 PM EDT) [facility] Method Time Signature Glucose UA Negative Negative MARTHA GENOVEVA mg/dL [facility] Protein UA Negative Negative MATRHA GENOVEVA mg/dL [facility] Bilirubin UA Negative Negative MARTHA GENOVEVA mg/dL [facility] Comment: Clinical correlation required for positi ve Urine Bilirubin results as false positive may occur with some drugs and d rug related products. If a false positive is suspected a serum total bili tolentino should be considered if clinically indicated. Urobilinogen UA Normal Normal mg/dL [facility] pH UA 6.0 5.0 - 8.0 [facility] Blood UA Small (A) Negative mg/dL [facility] Ketones UA Negative Negative mg/dL [facility] Nitrite UA Negative Negative [facility] Leukocytes UA Negative Negative [facility] Appearance UA Clear Clear [facility] Spec [place] UA 1.011 1.002 - 1.030 [facility] Color UA Yellow Yellow [facility] RBC UA 2 0 - 4 /HPF [facility] WBC UA 3 0 - 5 /HPF [facility] Squam Epith UA 2 <=4 /HPF [facility] Culture Reflexed No [facility] Specimen (Source) Anatomical Collection Method Collection Time Re ceived Time Location / / Volume Laterality Urine specimen 08/07/2015 4:35 08/07/2015 5:32 obtained by clean PM EDT PM EDT catch procedure (specimen) Resulting Agency Comment Spec In Lab Coleman Du MD URINE ORDERABLES Performing Organization Address City/State/[place] [address] documented in this encounter Visit Diagnoses Diagnosis Angiomyolipoma of kidney Benign neoplasm of kidney, except pelvis documented in this encounter Care Teams Apprentice Painter Neckties Relationship Specialty Start Date End Date Fitz Jenkins MD PCP - General 04/10/10 07/27/[address] [place] [address] documented as of this encounter
--- OUTSIDE RECORDS SUMMARY | 2021-12-21 00:37 | XMS_ITS | Encounter Summary ---
:1950 Author Organization [place] [address] Care Team Providers Name Role Phone Fitz Jenkins MD Primary Care Provider [phone] Encounter Details Date Type Department Care Team Description 06/08/2013 Follow-Up Neurology at [facility] Donovan Myaer, Lumbar radiculopathy [facility] (Primary Dx) [place] [address] NEUROLOGY DEPT. [place], [place] [address] Social History Tobacco Use Types [...] Reading Time Taken Comments Blood Pressure 133/62 06/08/2013 9:07 AM EST Pulse 87 06/08/2013 9:07 AM EST Temperature - - Respiratory Rate - - Oxygen Saturation - - Inhaled Oxygen Concentration - - Weight 113.4 kg (250 lb) 06/08/2013 9:07 AM EST Reporte d Height 175.3 cm (5' 9) 06/08/2013 9:07 AM EST Reported Body Mass Index 36.92 06/08/2013 9:07 AM EST documented in this encounter Patient Instructions Patient InstructionsDonovan Mayer MD - 06/08/2013 9:40 AM EST I think you're doing reasonably well. Control of headaches seems adequate at present. Used to have some signs of old nerve damage from the back of the leg on the right. However it appears to be stable. I would suggest you continue to use the brace. Please call with any problems I would like to see you back in a year or sooner if necessary documented in this encounter Progress Notes Donovan Mayer MD - 06/08/2013 9:24 AM EST Chief Complaint: Lumbar radiculopathy, headaches, and pain in her feet. History: The patient is seen in followup today. As noted earlier, she has a rather complicated set of medical problems are listed below. A major neurological issues has been migrainous headaches that came under [...] she does quite well walking with a cane [facility] Patient Active Problem List Diagnoses Code ??? 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 Physical Exam: BP 133/62 Pulse 87 Ht 175.3 cm (5' 9) Wt 113.399 kg (250 lb) BMI 36.92 kg/m2 Head, eyes, ears, nose, and throat were normal. Heart and lungs were normal. There are some arthritic deformities of the right ankle and foot She is mentally intact and speech was normal Cranial nerves were normal. The optic discs are flat Strength was essentially normal, but there is weakness of dorsiflexion of the big toe on the right Reflexes were noteworthy for depressed (0) right ankle reflex as previously noted. She has patchy sensory loss for pin and vibration in both legs, worse in a right L4-5 distribution. Cerebellar function was normal. Her gait continues to be somewhat ataxic and antalgic, but better than before. Laboartory Studies: None today Medications: Current Outpatient Prescriptions [...] SYSTEMS (HORIZON NASAL CPAP SYSTEM MISC) by [employer].(Non- Drug; Combo Route) route nightly. ??? TENS UNITS MISC by [employer].(Non-Drug; Combo Route) route. Tens machine Daily for [...] I believe part of the lumbar radiculopathy 3. She has chronic headaches that are doing fairly well. I think CPAP has helped 4. There was concern about recurrence of a carcinoid tumor, but that was ruled out by endoscopy donein [facility]. IBS symptoms are under control. [...] consultation. Donovan Mayer MD [place] [address] Pager: [phone], #[phone] Email: [email or web address] cc: FITZ JENKINS MD documented in this encounter Plan of Treatment Upcoming Encounters Date Type Specialty Care Team Description 03/06/2022 Office Visit Cardiology Lizeth Frazier MD [facility] [place], [place] [address] (Wo rk) 03/18/2022 Office Visit Neurology Donovan Mayer MD [facility] NEUROLOGY DEPT. [place], [place] [address] (Wo rk) 04/24/2022 Appointment Hematology and Oncology 04/24/2022 Office Visit Hematology and Oncology Renea Navarro MD [facility] HEMATOLOGY/ONCOL CLAUDE DEPT. [place], [place] [address] (Wo rk) documented as of this encounter Visit Diagnoses Diagnosis Lumbar radiculopathy - Primary Thoracic or lumbosacral neuritis or radi culitis, unspecified documented in this encounter Care Teams Engineering Writer Relationship Specialty Start Date End Date Fitz Jenkins MD PCP - General 04/10/10 07/27/17 [address] [place] [address] documented as of this encounter
--- OUTSIDE RECORDS SUMMARY | 2021-12-21 00:37 | XMS_ITS | Encounter Summary ---
:1950 Author Organization [facility] [place] [address] Care Team Providers Name Role Phone Fitz Jenkins MD Primary Care Provider [phone] Encounter Details Date Type Department Care Team Description 10/31/2015 Office Visit Neurology at [facility] Donovan Mayer, Radiculopathy of [facility] lumbosacral region [place], [place] CENTER [address] NEUROLOGY DEPT. [phone] [place], [place] [address] Social History Tobacco Use Types [...] Sign Reading Time Taken Comments Blood Pressure 146/74 10/31/2015 2:53 PM EDT Pulse 77 10/31/2015 2:53 PM EDT Temperature - - Respiratory Rate - - Oxygen Saturation - - Inhaled Oxygen Concentration - - Weight 116.7 kg (257 lb 3.2 oz) 10/31/2015 2:53 PM EDT Height 175.3 cm (5' 9) 10/31/2015 2:53 PM EDT reported Body Mass Index 37.98 10/31/2015 2:53 PM EDT documented in this encounter Patient Instructions Patient InstructionsDonovan Mayer MD - 10/31/2015 4:11 PM EDT I think you are doing reasonably well. As noted earlier you have some arthritic problems in the feet, worse on the right. You also had a pinched nerve at the L5 level in your back, also on the right side, which has caused minor weakness of pulling up of your big toe, and also with turning your foot outwards. You have a depressed reflex in the right ankle. There is some loss of sensation in the right leg. All of this appears to be stable. I would not recommend any action at present If loss of feeling or weakness in the right leg worsened, please call and we would repeat an MRI scan. It has been many years since we did one. 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 Physical Exam: BP 146/74 (BP Location (NBP): Right arm, Patient Position: Sitting, BP Cuff Sizes: Large Adult (32-43 cm)) Pulse 77 Ht 175.3 cm (5' 9) Comment: reported Wt (!) 116.7 kg (257 lb 3.2 oz) BMI 37.98 kg/m2 Head, eyes, ears, nose, and throat were normal. Heart and lungs were normal. There are some arthritic deformities of the right ankle and foot She is mentally intact and speech was normal Cranial nerves were normal. Strength was essentially normal, but there is weakness of dorsiflexion of the big toe on the right, and minor weakness of eversion of the right foot [...] SYSTEMS (HORIZON NASAL CPAP SYSTEM MISC) by [facility]Non- Drug; Combo Route) route nightly. ??? TENS UNITS MISC by [facility].(Non-Drug; Combo Route) route. Tens machine Daily for [...] as noted above, worse on the right. I do not think there is any major deterioration. MRI scan in the past showed degenerative changes at multiple levels and no clear surgical indication. 2. [...] that was ruled out by endoscopy donein [facility] a few years ago.. IBS symptoms are under control. 5. For [...] 2013. I will see her back in 12 months or sooner if necessary. Thank you for this consultation. Donovan Mayer MD [place] [address] Pager: [phone], #[phone] Email: [email or web address] cc: FITZ JENKINS MD documented in this encounter Plan of Treatment Upcoming Encounters Date Type Specialty Care Team Description 03/06/2022 Office Visit Cardiology Lizeth Frazier MD [facility] [place], [place] [address] (Wo rk) 03/18/2022 Office Visit Neurology Donovan Mayer MD [facility] NEUROLOGY DEPT. [place], [place] [address] (Wo rk) 04/24/2022 Appointment Hematology and Oncology 04/24/2022 Office Visit Hematology and Oncology Renea Navarro MD [facility] HEMATOLOGY/ONCOL CLAUDE DEPT. [place], [place] [address] (Wo rk) documented as of this encounter Visit Diagnoses Diagnosis Radiculopathy of lumbosacral region Thoracic or lumbosacral neuritis or radi culitis, unspecified documented in this encounter Care Teams Automotive Brake Technician Relationship Specialty Start Date End Date Fitz Jenkins MD PCP - General 04/10/10 07/27/[address] [place] [address] documented as of this encounter
--- OUTSIDE RECORDS SUMMARY | 2021-12-21 00:37 | XMS_ITS | Encounter Summary ---
:1950 Author Organization [facility] [place] [address] Care Team Providers Name Role Phone Fitz Jenkins MD Primary Care Provider [phone] Reason for Referral Physical Therapy (Routine) - Complete - Patient Will Schedule External Appt Specialty Diagnoses / Procedures Referred By Contact Refer red To Contact Physical Therapy Diagnoses Right [place] [address] Referral ID Status Reason Start Expiration Visits Visits Date Date Requested Authorized [id number] Complete - Evaluate and 08/26/2011 02/22/2012 1 1 Patient Will Treat Schedule External Appt Consultation (Routine) - Complete - Patient Will Schedule External Appt Specialty Diagnoses / Procedures Referred By Contact [place] To Contact Orthotics Diagnoses Right [place] [address] Referral ID Status Reason Start Expiration Visits Visits Date Date Requested Authorized [id number] Complete - Consult, 08/26/2011 02/22/2012 1 1 Patient Will Test & Schedule Treat External Appt Reason for Visit Reason Comments Right Knee Pain Encounter Details Date Type Department Care Team Description 08/26/2011 Office Visit Orthopaedics at [facility] Jimbo Johnson, Right knee pain [facility] (Primary Dx) [place] [address] CENTER [phone] ORTHOPAEDIC SURGERY [place], [place] [address] Social History Tobacco Use Types [...] - Inhaled Oxygen Concentration - - Weight 121.1 kg (267 lb) 08/26/2011 9:57 AM EDT Height 175.3 cm (5' 9) 08/26/2011 9:57 AM EDT Body Mass Index 39.43 08/26/2011 9:57 AM EDT documented in this encounter Progress Notes El Diaz - 08/26/2011 10:46 AM EDT Subjective: Patient ID: Saundra Blanton is a 61 y.o. female. HPI This is a 61yo female here for right knee pain for past few months. Notices more pain to front of knee, mostly with standing. In the morning feels fine. Avoids kneeling or squatting. Had history ofright foot drop in the past with back flareup, states that has improved. History of wearing a AFO [id number]. Patient Active Problem List Diagnoses Code ??? CIS - Tinea pedis 42312 ??? Lumbar radiculopathy 724.4F ??? Carcinoid tumor 209.60W ??? Migraine 346.90A ??? Hypothyroid 244.9AR ??? Sleep apnea 780.57C ??? Benign renal tumor 223.0K ??? Depression 311L ??? Hypertension 401.9AJ ??? Elevated cholesterol 272.0BM ??? Obesity 278.00M ??? Solar lentigo 709.09V ??? 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 Hiking. FMhx: DM, Heart disease, arthritis, HTN, Stroke PSHx: L4 discectomy 1975, C sections: 1986, Gastric cancer 2006 Social history: Nonsmoker, ETOH/ occasional ROS Objective: Physical Exam antalgic gait. With right planovalgus deformity to foot. Ortho Exam 5'9 267lbs RIGHT KNEE AND ANKLE EXAM Antalgic gait Able to transfer with use of hands Standing alignment reveals: Valgus Full extension Atrophy: GENERAL POOR MUSCLE TONE Asymmetry: NONE Effusion: NONE AROM Flexion 125 Extension 3 Stable to varus stressing at 0 and 30 degrees YES Stable to valgus stressing at 0 and 30 degrees YES Focal tenderness to medial/lateral joint MILD TO BOTH Patella femoral crepitus/tenderness YES Adrian's and Anterior Drawer test NEG Posterior Drawer test NEG Distal pulses palpable diminished Leg length descrepancy NONE RIGHT ANKLE/FOOT EXAM: Severe planovalgus/ weakness with dorsal flexion and peroneals. EHL weakness. Decreased subtalar and ankle motion. AROM DF/5 And PF/25 Sensation intact. No effusion. Able to perform single calf raise, but tender and weak vs left. I have made the following determinations: Knee Exam: Right Prior surgery on this joint: No Gait Abnormality: Antalgic Knee ROM: Extension:5 Flexion: 125 Alignment: 5-10 degrees Valgus Stability: A/P Translation <5mm. Varus (lateral stability) <5mm Valgus (medial stability) <5mm Extension La degrees or less Radiographic evidence of joint damage: [0= normal; 1=minimal ; 2= some osteophytes , some narrowing ; 3= moderate osteophytes, significant narrowing, mild deformity; 4= large osteophytes, marked narrowing, obvious deformity]: 3= moderate osteophytes, significant narrorwing, mild deformity Patella Tracking: Normal Skin Integrity: Normal Pulses Palpable: Right PT: Yes Right DP:Yes Motor/Sensory: Distal Motor: Normal Distal Sensory: Normal Quadriceps Strength: 3 KNEE XRAYS WITH TRICOMPARTMENT OA Neurologic Exam Assessment and Plan: 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 Discussed arthritis and operative/nonoperative care. Will start with conservative approach. Rehab consult for pool therapy/ strength and balance. RX for Amara brace. Encourage walking stick and weight loss. Will f/u in 8 weeks, sooner if needed.May consider steroid injection at that time. Physician coverage today is Dr. Johnson documented in this encounter Plan of Treatment Upcoming Encounters Date Type Specialty Care Team Description 03/06/2022 Office Visit Cardiology Lizeth Frazier MD [facility] [address] [place] [address] (Wo rk) 03/18/2022 Office Visit Neurology Donovan Mayer MD [facility] NEUROLOGY DEPT. [place], [place] [address] (Wo rk) 04/24/2022 Appointment Hematology and Oncology 04/24/2022 Office Visit Hematology and Oncology Renea Navarro MD [facility] HEMATOLOGY/ONCOL OGY DEPT. [place], [place] [address] (Wo rk) Scheduled Referrals Name Type Priority Associated Diagnoses Order S chedule REFERRAL FOR Outpatient Referral Routine Right knee pain Order ed: ORTHOTICS 08/26/2011 REFERRAL TO Outpatient Referral Routine Right knee pain Order ed: PHYSICAL THERAPY 08/26/2011 documented as of this encounter Visit Diagnoses Diagnosis Right knee pain - Primary Pain in joint, lower leg documented in this encounter Care Teams Grinder Chipper Relationship Specialty Start Date End Date Fitz Jenkins MD PCP - General 04/10/10 07/27/[address] [place] [address] documented as of this encounter
--- OUTSIDE RECORDS SUMMARY | 2021-12-21 00:37 | XMS_ITS | Encounter Summary ---
:1950 Author Organization [facility] Address [facility] [place] [address] Care Team Providers Name Role Phone Fitz Jenkins MD Primary Care Provider [phone] Encounter Details Date Type Department Care Team Description 07/12/2015 Orders Only Urology at [facility] Lissy Du MD Renal malignant tumor, [facility] uns [address] (Primary Dx) [place] [address] UROLOGY [phone] [place], [place] [address] Social History Tobacco Use Types [...] MD [facility] [place], [place] [address] (Wo rk) 03/18/2022 Office Visit Neurology Donovan Mayer MD [facility] ER NEUROLOGY DEPT. [place], [place] [address] (Wo rk) 04/24/2022 Appointment Hematology and Oncology 04/24/2022 Office Visit Hematology and Oncology Renea Navarro MD [facility] HEMATOLOGY/ONCOL OGY DEPT. [place], [place] [address] (Wo rk) documented as of this encounter Results US Retroperitoneal Complete (08/07/2015 [...] 04:07 pm) Patient Info ID #: ? [id number] ?: ??[birth year] (65 yrs) Name: ? SAUNDRA DHALIWAL ? Visit Date: 08/07/2015 03:33 pm Performed By Performed By: ? Aldo Tamez RDMS Attending: ?Lelo Trivedi MD Referred By: ?LISSY DU MD Service(s) Provided ??URETRO - Retroperitoneal Complete - I [id number] ? [id number] Indications ??renal tumo Comparison U/S - RENAL/BLADDER 07/11/14 Right Kidney Size (cm) ?L: ??10.5 Cortical Thickness: ?Normal Cortical Echogenicity: ?? Normal Hydronephrosis: ?No sonogr aphic evidence ------- Lesions ------- ??# ?Date ?Location ?Description ?L ? AP ? TV (cm) ??1 ?08/07/15 ?Medial/ ? Angiomyolipo ?1.1 ?1.1 ? 1.2 ? Inferior ?ma ??1 ?07/11/14 ?Mid/Lower ? Angiomyolipo ?1.7 ?1.2 ? 2.4 ? Pole ?ma ??# ?Date ?Location ?Description ?L ? AP ? TV (cm) ??1 ?10//13 ?MID/Lower ? Angiomyolipo ?2.3 ?1.7 ? 2.0 ? Pole ?ma ? Lateral ??1 ?10/15/12 ?Lower pole ? Angiomyolipo ?1.2 ?1.6 ? 2.0 ? lateral ? ma ??1 ?06/14/10 ?Lower pole ? Angiomyolipo ?1.1 ?1.2 ? 1.1 ? ma ??2 ?03/21/16 ?Mid / ? Angiomyolipo ?0.5 ?0.5 ? 0.3 ? Inferior ?ma ??2 ?//15 ?Mid pole ?Angiomyolipo ?0.7 ?0.5 ? 5.0 [...] ?L ? AP ? TV (cm) ??1 ?08/06/16 ?Upper pole ? Angiomyolipo ?1.4 ?1.7 ? 1.8 ? ma ??1 ?07/11/14 ?Upper pole ? Angiomyolipo ?1.8 ?1.6 ? 1.6 ? ma ??1 ?03/09/13 ?Upper pole ? Angiomyolipo ?1.4 ?1.8 ? 1.4 ? ma ??1 ?10/15/12 ?Upper pole ? Angiomyolipo ?1.6 ?1.2 ? 1.4 ? ma ??1 ?/14/10 ?Upper pole ? Angiomyolipo ?2.4 ?1.6 ? 1.4 ? ma ??2 ?08/06/16 ?Lower [...] Comment: ?Partially distended, norm al contour Procedure Lelo Thomas MD - 08/07/2015Formatt ing of this note might be different from the original. Renal (Signed Final 08/07/2015 04:07 pm ) Patient Info ID #: [id number] : [birth year] (65 y rs) Name: SAUNDRA DHALIWAL Visit Date: 2015 03:33 pm Performed By Performed By: Aldo Tamez RDMS Attending: Lelo Trivedi MD Referred By: LISSY DU MD Service(s) Provided URETRO - Retroperitoneal Complete - [id number] Indications renal tumo Comparison U/S - RENAL/BLADDER [...] Diagnosis Renal malignant tumor, unspecified later ality - Primary Renal malignant tumor, unspecified later ality documented in this encounter Care Teams Global Chief Experience Officer Relationship Specialty Start Date End Date Fitz Jenkins MD PCP - General 04/10/10 07/27/[address] [place] [address] documented as of this encounter
--- OUTSIDE RECORDS SUMMARY | 2021-12-21 00:37 | XMS_ITS | Encounter Summary ---
:1950 Author Organization [facility] [address] Care Team Providers Name Role Phone Fitz Jenkins MD Primary Care Provider [phone] Encounter Details Date Type Department Care Team Description 03/17/2013 Telephone Urology at [facility] Maria D Gunter, [facility] [place] [address] [facility] [phone] UROLOGY DEPT. [place], [place] [address] (Wo rk) Social History Tobacco [...] this encounter Miscellaneous Notes Telephone Encounter - Maria D Gunter APRN - 03/17/2013 7:13 AM EDT Ms. Blanton had 3 rbc/hpf and a negative urine culture at the time of her recent visit for follow up of bilateral AMLs. She needs cystoscopy, cytology. Her most recent US was not concerning other than slightly enlarging right aml to max of 2.3 cm over the past 2 years. No further upper tract imaging, will just set her up for cystoscopy per my discussion with Florian Will see her at a year per Dr. Du's recommendation with US. documented in this encounter Plan of Treatment Upcoming Encounters Date Type Specialty Care Team Description 03/06/2022 Office Visit Cardiology Lizeth Frazier MD [facility] [address] [place], [place] [address] (Wo rk) 03/18/2022 Office Visit Neurology Donovan Mayer MD [facility] NEUROLOGY DEPT. [place], [place] [address] (Wo rk) 04/24/2022 Appointment Hematology and Oncology 04/24/2022 Office Visit Hematology and Oncology Renea Navarro MD [facility] HEMATOLOGY/ONCOL CALIY DEPT. [place], [place] [address] (Wo rk) documented as of this encounter Visit Diagnoses Not on filedocumented in this encounter Care Teams Breaker Hand Relationship Specialty Start Date End Date Fitz Jenkins MD PCP - General 04/10/10 07/27/[address] [place] [address] documented as of this encounter
--- OUTSIDE RECORDS SUMMARY | 2021-12-21 00:37 | XMS_ITS | Encounter Summary ---
:1950 Author Organization [facility] [place] [address] Care Team Providers Name Role Phone Fitz Jenkins MD Primary Care Provider [phone] Reason for Visit Reason Onset Date Comments Referral 05/18/2014 Encounter Details Date Type Department Care Team Description 05/18/2014 Telephone Orthopaedics at [facility] [place] [address] Social History Tobacco Use Types Packs/Day [...] this encounter Miscellaneous Notes Telephone Encounter - Rosy Dunham - 05/18/2014 1:16 PM EST PATIENT WANTS TO SEE DR FRAGOSO AT [facility]. CALL WAS PUT THROUGH TO THEM. documented in this encounter Plan of Treatment Upcoming Encounters Date Type Specialty Care Team Description 03/06/2022 Office Visit Cardiology Lizeth Frazier MD [facility] er [place], [place] [address] (Wo rk) 03/18/2022 Office Visit Neurology Donovan Mayer MD [facility] ER NEUROLOGY DEPT. [place], [place] [address] (Wo rk) 04/24/2022 Appointment Hematology and Oncology 04/24/2022 Office Visit Hematology and Oncology Renea Navarro MD [facility] HEMATOLOGY/ONCOL CLAUDE DEPT. [place], [place] [address] (Wo rk) documented as of this encounter Visit Diagnoses Not on filedocumented in this encounter Care Teams Probe Operator Relationship Specialty Start Date End Date Fitz Jenkins MD PCP - General 04/10/10 07/27/[address] [place] [address] documented as of this encounter
--- OUTSIDE RECORDS SUMMARY | 2021-12-21 00:37 | XMS_ITS | Encounter Summary ---
:1950 Author Organization [facility] [place] [address] Care Team Providers Name Role Phone Fitz Jenkins MD Primary Care Provider [phone] Encounter Details Date Type Department Care Team Description 07/31/2011 Orders Only Orthopaedics at [facility] Jimbo Johnson, Right knee pain [facility] (Primary Dx) [place] [address] ORTHOPAEDIC SURGERY [place], [place] [address] Social History Tobacco Use Types [...] Frazier MD [facility] [address] [place], [place] [address] (Wo rk) 03/18/2022 Office Visit Neurology Donovan Mayer MD [facility] NEUROLOGY DEPT. [place], [place] [address] (Wo rk) 04/24/2022 Appointment Hematology and Oncology 04/24/2022 Office Visit Hematology and Oncology Renea Navarro MD [facility] HEMATOLOGY/ONCOL OGY DEPT. [place], [place] [address] (Wo rk) documented as of this encounter Results XR JOINT TEAM ALIGNMENT [...] weight bearing position. FINDINGS: Right lower extremity salvage mechanic al axis is neutral. The left [...] leg documented in this encounter Care Teams Psychologist Social Relationship Specialty Start Date End Date Fitz Jenkins MD PCP - General 04/10/10 07/27/17 [address] [place] [address] documented as of this encounter
--- OUTSIDE RECORDS SUMMARY | 2021-12-21 00:37 | XMS_ITS | Encounter Summary ---
:1950 Author Organization [facility] [place] [address] Care Team Providers Name Role Phone Fitz Jenkins MD Primary Care Provider [phone] Encounter Details Date Type Department Care Team Description 02/27/2017 Ancillary Procedure [facility] [address] [place] [id number] [phone] (Wo rk) Social History Tobacco Use Types [...] [facility] [address] [place], [place] [address] (Wo rk) 03/18/2022 Office Visit Neurology Donovan Mayer MD [facility] ER NEUROLOGY DEPT. [place], [place] [address] (Wo rk) 04/24/2022 Appointment Hematology and Oncology 04/24/2022 Office Visit Hematology and Oncology Renea Navarro MD [facility] HEMATOLOGY/ONCOL OGY DEPT. [place], [place] [address] (Wo rk) documented as of this encounter Procedures Procedure Name Priority Date/Time Associated Diagnosis Comme nts FILM LIBRARY Routine 02/27/2017 12:00 AM Results for this STORAGE ONLY MAMMO EDT procedure are in the results section. documented in this encounter Results Film Library- Storage Only Mammo (02/27/2017 12:00 AM EDT) Specimen (Source) Anatomical Location Collection Method / Collectio n Time Received Time / Laterality Volume Narrative [facility] - 07/14/2020 4:37 PM EST This exam is auto-finalizing. It's purpo se is for storage only. Ingrid Espinosa APRN IMG FILM LIBRARY ORDERABLES Performing Organization Address City/State/ZIP Code Phon e Number [place], [place] documented in this encounter Visit Diagnoses Not on filedocumented in this encounter Care Teams Product Manager Relationship Specialty Start Date End Date Fitz Jenkins MD PCP - General 04/10/10 07/27/[address] [place] [address] documented as of this encounter
--- OUTSIDE RECORDS SUMMARY | 2021-12-21 00:37 | XMS_ITS | Encounter Summary ---
:1950 Author Organization [facility] [place] [address] Care Team Providers Name Role Phone Fitz Jenkins MD Primary Care Provider [phone] Reason for Visit Reason Comments Right Knee Pain Encounter Details Date Type Department Care Team Description 10/28/2011 [place] [facility] [place] Johnson, Right knee pain [facility] Kade prado MD (Primary Dx) [place] [address] [facility] [phone] DR ORTHOPAEDIC SURGERY [place], [place] [address] Social History Tobacco Use Types [...] Sign Reading Time Taken Comments Blood Pressure 122/70 10/28/2011 10:15 AM EDT Pulse 60 10/28/2011 10:15 AM EDT Temperature - - Respiratory Rate - - Oxygen Saturation - - Inhaled Oxygen Concentration - - Weight 115.2 kg (254 lb) 10/28/2011 10:15 AM EDT Height 175.3 cm (5' 9) 10/28/2011 10:15 AM EDT Body Mass Index 37.51 10/28/2011 10:15 AM EDT documented in this encounter Progress Notes [place] - 10/28/2011 10:43 AM EDT Subjective: Patient ID: Saundra Blanton is a 61 y.o. female. HPI This is a 61yo female here for right knee& ankle pain , last seen in August 2011. Has been going to rehab and will start pool therapy. Going to therapy in [facility]. She feels the therapy ishelping, feels she is 80% better. Using walking stick. Able to work all day and not painfull. Her summer will involve walking, pool, fishing, container gardening. Patient states there is pain daily to right ankle and also mid foot pain, has been present for past 10 years. There is swelling with increased activities. Feels unstable at times, especially with uneven ground, unable to cross country ski due to pain and instability. Walking up any stair or incline ispainfull and there is loss of motion. Has been wearing AC stirrup splint for past 2 years./ Patient Active Problem List Diagnoses Code ??? CIS - Tinea pedis [address]278 ??? Lumbar radiculopathy 724.4F ??? Carcinoid tumor [...] planovalgus deformity to foot. Ortho Exam 5'9 254lbs( 267lbs ) RIGHT KNEE AND ANKLE EXAM Antalgic gait Able to transfer with use of hands Standing alignment reveals: Valgus Full extension Atrophy: GENERAL POOR MUSCLE TONE Asymmetry: NONE Effusion: NONE AROM Flexion 130 Extension 0 BOTH IMPROVED Stable to varus stressing at 0 and 30 degrees YES Stable to valgus stressing at 0 and 30 degrees YES Focal tenderness to medial/lateral joint NONTENDER TODAY Patella femoral crepitus/tenderness YES Adrian's and Anterior [...] Strength: 3 KNEE XRAYS WITH TRICOMPARTMENT OA ANKLE XRAYS; 2009/ OSTEOARTHRITIS, PES PLANUS Neurologic Exam Assessment and Plan: 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 Still having right ankle pain, that limits activities. Encouragewalking stick and weight loss. F/U in 8 weeks post wearing Amara [employer]ace..May consider steroid injection at that time. Physician coverage today is Dr. Johnson Subjective: Patient ID: Saundra Blanton is a 61 y.o. female. HPI ROS Objective: Physical Exam Ortho Exam Neurologic Exam Assessment and Plan: No problem-specific visit notes found for this encounter. documented in this encounter Plan of Treatment Upcoming Encounters Date Type Specialty Care Team Description 03/06/2022 Office Visit Cardiology Lizeth Frazier MD [facility] er [place], [place] [address] (Wo rk) 03/18/2022 Office Visit Neurology Donovan Mayer MD [facility] NEUROLOGY DEPT. [place], [place] [address] (Wo rk) 04/24/2022 Appointment Hematology and Oncology 04/24/2022 Office Visit Hematology and Oncology Renea Navarro MD [facility] HEMATOLOGY/ONCOL CLAUDE DEPT. [place], [place] [address] (Wo rk) documented as of this encounter Visit Diagnoses Diagnosis Right knee pain - Primary Pain in joint, lower leg documented in this encounter Care Teams Application Processor Relationship Specialty Start Date End Date Fitz Jenkins MD PCP - General 04/10/10 07/27/17 [address] [place] [address] documented as of this encounter
--- OUTSIDE RECORDS SUMMARY | 2021-12-21 00:37 | XMS_ITS | Encounter Summary ---
:1950 Author Organization [facility] [place] [address] Care Team Providers Name Role Phone Fitz Jenkins MD Primary Care Provider [phone] Encounter Details Date Type Department Care Team Description 08/30/2013 Ancillary Procedure [facility] [address] [place] [address] [phone] (Wo rk) Social History Tobacco Use Types [...] Visit Cardiology Lizeth Frazier MD [facility] [address] [place], [place] [address] (Wo rk) 03/18/2022 Office Visit Neurology Donovan Mayer MD [facility] ER NEUROLOGY DEPT. [place], [place] [address] (Wo rk) 04/24/2022 Appointment Hematology and Oncology 04/24/2022 Office Visit Hematology and Oncology Renea Navarro MD [facility] HEMATOLOGY/ONCOL OGY DEPT. [place], [place] [address] (Wo rk) documented as of this encounter Procedures Procedure Name Priority Date/Time Associated Diagnosis Comme nts FILM LIBRARY Routine 08/30/2013 12:00 AM Results for this STORAGE ONLY MAMMO EDT procedure are in the results section. documented in this encounter Results Film Library- Storage Only Mammo (08/30/2013 12:00 AM EDT) Specimen (Source) Anatomical Location Collection Method / Collectio n Time Received Time / Laterality Volume Narrative [facility] - 07/14/2020 4:36 PM EST This exam is auto-finalizing. It's purpo se is for storage only. Ingrid Espinosa APRN IMG FILM LIBRARY ORDERABLES Performing Organization Address City/State/ZIP Code Phon e Number [place], [place] documented in this encounter Visit Diagnoses Not on filedocumented in this encounter Care Teams Shellfish Processing Machine Tender Relationship Specialty Start Date End Date Fitz Jenkins MD PCP - General 04/10/10 07/27/17 [address] [place] [address] documented as of this encounter
--- OUTSIDE RECORDS SUMMARY | 2021-12-21 00:37 | XMS_ITS | Encounter Summary ---
:1950 Author Organization [facility] [place] [address] Care Team Providers Name Role Phone Fitz Jenkins MD Primary Care Provider [phone] Encounter Details Date Type Department Care Team Description 04/28/2012 Follow-Up Neurology at [facility] Donovan Mayer, Migraine (Primary Dx) [facility] [place] [address] NEUROLOGY DEPT. [place], [place] [address] (Wo rk) Social History Tobacco [...] Sign Reading Time Taken Comments Blood Pressure 139/81 04/28/2012 9:46 AM EST Pulse 80 04/28/2012 9:46 AM EST Temperature - - Respiratory Rate - - Oxygen Saturation - - Inhaled Oxygen Concentration - - Weight 111.3 kg (245 lb 6.4 oz) 04/28/2012 9:46 AM EST Height 175.3 cm (5' 9) 04/28/2012 9:46 AM EST Body Mass Index 36.24 04/28/2012 9:46 AM EST documented in this encounter Patient Instructions Patient InstructionsDonovan Mayer MD - 04/28/2012 10:23 AM EST I think you're doing quite well. Headaches appear to be adequately controlled. As we discussed earlier you have some pinched nerves in your back giving you some symptoms in your legs. That also appears to be stable. There is no sign of any worsening nerve damage. You certainly have some arthritic problems in her back and ankles, and staying on the same medicinesis very reasonable. You can use Percocet occasionally for severe aches and pains. Please call with any problems, otherwise I would like to see you back in a year documented in this encounter Progress Notes Donovan Mayer MD - 04/27/2012 10:51 PM EST Chief Complaint: Lumbar radiculopathy, headaches, and pain in her feet. History: The patient is seen in followup today. As noted earlier, she has a rather complicated set of medical problems are listed below. Major neurological issues have been migrainous headaches, and symptoms of lumbar radiculopathy with sciatic painon the right, and pain in both ankles and feet that we thought was mainly arthritic in character buthad some neuropathic component. She is doing well. She is not complaining of frequent headaches. She continues to have some back andleg pain. Her ankle and foot, where she had the sprain and fracture on the right, improved and are now stable. Her balance remains chronically somewhat bad, and dhe recently had a fall with some contusion of the left hip. It seems that his pain, cord and ham. CAT scan of her back and her head goes shealso had exacerbation of headache, these were unremarkable. [facility] Patient Active Problem List Diagnoses Code ??? [...] alright. Bowel and bladder function are normal. Physical Exam: BP 139/81 Pulse 80 Ht 175.3 cm (5' 9) Wt 111.313 kg (245 lb 6.4 oz) BMI 36.24 kg/m2 Head, eyes, ears, nose, and throat [...] Outpatient Prescriptions Medication Sig Dispense Refill ??? CALCIUM CARBONATE/VITAMIN D3 (CALCIUM + D ORAL) Take 2 tablets by mouth 2 times daily. Calcium 500 mg per tablet ??? OXYcodone-acetaminophen (PERCOCET) 5-325 mg per tablet [...] SYSTEMS (HORIZON NASAL CPAP SYSTEM MISC) by [facility].(Non- Drug; Combo Route) route nightly. ??? TENS UNITS MISC by [facility].(Non-Drug; Combo Route) route. Tens machine Daily for [...] She has milder symptoms on the left. 3. She has chronic headaches that are doing fairly well. I think CPAP has helped 4. There had been concern about recurrence of a carcinoid tumor, but that was apparently ruled out by endoscopy done in [facility]. IBS symptoms are under control. 5. [...] consultation. Donovan Mayer [place] [address] Pager: [phone], #[phone] Email: [email or web address] cc: FITZ JENKINS MD documented in this encounter Plan of Treatment Upcoming Encounters Date Type Specialty Care Team Description 03/06/2022 Office Visit Cardiology Lizeth Frazier MD [facility] er [place], [place] [address] (Wo rk) 03/18/2022 Office Visit Neurology Donovan Mayer MD [facility] NEUROLOGY DEPT. [place], [place] [address] (Wo rk) 04/24/2022 Appointment Hematology and Oncology 04/24/2022 Office Visit Hematology and Oncology Renea Navarro MD [facility] er HEMATOLOGY/ONCOL CALIY DEPT. [place], [place] [address] (Wo rk) documented as of this encounter Visit Diagnoses Diagnosis Migraine - Primary Migraine, unspecified, without mention o f intractable migraine without mention of status migrainosus documented in this encounter Care Teams Home Attendant Relationship Specialty Start Date End Date Fitz Jenkins MD PCP - General 04/10/10 07/27/17 [address] [facility] [place] [place] [address] documented as of this encounter
--- OUTSIDE RECORDS SUMMARY | 2021-12-21 00:37 | XMS_ITS | Encounter Summary ---
:1950 Author Organization [facility] [place] [address] Care Team Providers Name Role Phone Fitz Jenkins MD Primary Care Provider [phone] Encounter Details Date Type Department Care Team Description 01/27/2012 Hospital Encounter XRay at [facility] Right knee pain [address] [place] [address] [place] [address] Social History Tobacco Use Types Packs/Day [...] Cardiology Lizeth Frazier MD [facility] [place], [place] [address] (Wo rk) 03/18/2022 Office Visit Neurology Donovan Mayer MD [facility] NEUROLOGY DEPT. [place], [place] [address] (Wo rk) 04/24/2022 Appointment Hematology and Oncology 04/24/2022 Office Visit Hematology and Oncology Renea Navarro MD [facility] HEMATOLOGY/ONCOL CLAUDE DEPT. [place], [place] [address] (Wo rk) documented as of this encounter Procedures Procedure Name Priority Date/Time Associated Comments Diagnosis XR KNEE DIAGNOSTIC 1 Routine 01/27/2012 12:33 PM Right knee pa in Results for this OR 2 VIEW EDT procedure are i n the results section. documented in this encounter Results XR knee diagnostic 1 [...] leg documented in this encounter Care Teams Supervisor Capacitor Processing Relationship Specialty Start Date End Date Fitz Jenkins MD PCP - General 04/10/10 07/27/17 [address] [facility] [place] [address] documented as of this encounter
--- OUTSIDE RECORDS SUMMARY | 2021-12-21 00:37 | XMS_ITS | Encounter Summary ---
:1950 Author Organization [place] [address] Care Team Providers Name Role Phone Fitz Jenkins MD Primary Care Provider [phone] Reason for Visit Reason Onset Date Comments Other 04/02/2012 returning nurse's ca ll Encounter Details Date Type Department Care Team Description 04/02/2012 Telephone Dermatology at [facility], [place] issa ([address], nurse's call) [address] [place] [address] [facility] [place], [place] [address] (Wo rk) Social History Tobacco [...] Encounter - Raven Martinez LPN - 04/02/2012 1:04 PM EST Patient returning nurse's call(she wasn't sure of the name). She is doing fine. Telephone Encounter - Tammy Gillespie - 04/02/2012 12:[address] Duggan patient Patient returning nurse's call(she wasn't sure of the name). She is doing fine. elma documented in this encounter Plan of Treatment Upcoming Encounters Date Type Specialty Care Team Description 03/06/2022 Office Visit Cardiology Lizeth Frazier MD [facility] [place] [address] (Wo rk) 03/18/2022 Office Visit Neurology Donovan Mayer MD [facility] NEUROLOGY DEPT. [place], [place] [address] (Wo rk) 04/24/2022 Appointment Hematology and Oncology 04/24/2022 Office Visit Hematology and Oncology Renea Navarro MD [facility] HEMATOLOGY/ONCOL CLAUDE DEPT. [place], [place] [address] (Wo rk) documented as of this encounter Visit Diagnoses Not on filedocumented in this encounter Care Teams Wire Coiler Relationship Specialty Start Date End Date Fitz Jenkins MD PCP - General 04/10/10 07/27/[address] [place] [address] documented as of this encounter
--- OUTSIDE RECORDS SUMMARY | 2021-12-21 00:37 | XMS_ITS | Encounter Summary ---
:1950 Author Organization [facility] [place] [address] Care Team Providers Name Role Phone Fitz Jenkins MD Primary Care Provider [phone] Encounter Details Date Type Department Care Team Description 07/11/2014 Hospital Encounter [facility] [facility] Benign renal tumor, [facility] [place] [address] Social History Tobacco Use Types Packs/Day [...] tablet daily. OXYGEN-AIR DELIVERY [place] [facility]Non-Drug; 0 SYSTEMS (HORIZON NASAL Combo Route) route CPAP SYSTEM [facility]) nightly. levothyroxine Take 37.5 mcg by mouth 0 (SYNTHROID) 25 mcg daily. tablet fluticasone (FLONASE) 1 spray 2 times daily [...] nightly. TENS UNITS MISC by [facility].(Non-Drug; 0 0 01/13/2019 Combo Route) route. Tens [...] 03/06/2022 Office Visit Cardiology Lizeth Frazier MD [facility] er [place] [address] (Wo rk) 03/18/2022 Office Visit Neurology Donovan Mayer MD [facility] NEUROLOGY DEPT. [place], [place] [address] (Wo rk) 04/24/2022 Appointment Hematology and Oncology 04/24/2022 Office Visit Hematology and Oncology Renea Navarro MD [facility] er HEMATOLOGY/ONCOL CALIY DEPT. [place], [place] [address] (Wo rk) documented as of this encounter Procedures Procedure Name Priority Date/Time Associated Comments Diagnosis US RETROPERITONEAL Routine 07/11/2014 3:13 Benign renal tumor, Results for this COMPLETE PM EST unspecified procedure are i n laterality the results section. documented in this encounter Results US retroperitoneal complete (07/11/2014 3:13 PM EST) Anatomical Region Laterality Modality Abdomen Ultrasound Specimen (Source) Anatomical Collection Method Collection Time Re ceived Time Location / / Volume Laterality 07/11/2014 3:13 PM EST Narrative 07/11/2014 3:21 PM EST Renal ?(Signed Final 07/11/2014 03:19 ? pm) Patient Info ID #: ? [id number] ?: ??[birth year] (64 yrs) Name: ? SUANDRA DHALIWAL ? Visit Date: 07/11/2014 03:05 pm Performed By Performed By: ?Honey Morrison RDMS Attending: ? Magda Soliz MD Referred By: ? LISSY GUTIERREZ MD Service(s) Provided ??URETRO - Retroperitoneal Complete - 0 [id number] ? [id number] Indications ??benign renal tumor Comparison Ultrasound: 03/09/13 [...] 2.0 ? Pole ?ma ? Lateral ??1 ?/15/12 ?Lower pole ? Angiomyolipo ?1.2 ?1.6 ? 2.0 ? lateral ? ma ??1 ?10/30/10 ?Lower pole ? Angiomyolipo ?1.1 ?1.2 ? 1.1 ? ma ??2 ?07/11/14 ?Mid pole ?Angiomyolipo ?0.7 ?0.5 ? 5.0 ? ma ??2 ?03/09/13 ?Lower pole ? Angiomyolipo ?0.5 ?0.7 ? 0.6 ? ma ??2 ?15/12 ?Lower pole ? Angiomyolipo ?0.4 ?0.2 ? [...] ??viewed the images and agree with minerva gil interpretation. ? Magda Soliz MD Electronically Signed Final Report ?? 03:19 pm Procedure Note Magda Soliz MD - 07/11/2014Formattin g of this note might be different from the original. Renal (Signed Final 07/11/2014 03:19 pm) Patient Info ID #: [id number] : [birth year] (64 y rs) Name: SAUNDRA DHALIWAL Visit Date: 2014 03:05 pm Performed By Performed By: Honey Morrison RDMS Attending: Magda Soliz MD Referred By: LISSY GUTIERREZ MD Service(s) Provided URETRO - Retroperitoneal Complete - [phone] Indications benign renal tumor Comparison Ultrasound: 03/09/13 [...] Signed Final Report 07/11 03:19 pm Lissy Gutierrez MD IMG US GEN ORDERABLES documented in this encounter Visit Diagnoses Diagnosis Benign renal tumor, unspecified laterali ty documented in this encounter Care Teams Fashion Photographer Relationship Specialty Start Date End Date Fitz Jenkins MD PCP - General 04/10/10 07/27/[address] [place] [address] documented as of this encounter
--- OUTSIDE RECORDS SUMMARY | 2021-12-21 00:38 | XMS_ITS | Encounter Summary ---
:1950 Author Organization [facility] [place] [address] Care Team Providers Name Role Phone Fitz Jenkins MD Primary Care Provider [phone] Encounter Details Date Type Department Care Team Description 04/23/2010 Office Visit Sleep Medicine Jimi Gonzalez MD [facility] [place] [address] [facility] [phone] [place], [place] [address] (Wo rk) Social History Tobacco Use Types Packs/Day Years Used Date Never Assessed Alcohol Habits Answer Date Recorded How often [...] 03/06/2022 Office Visit Cardiology Lizeth Frazier MD [facility] er [address] [place] [address] (Wo rk) 03/18/2022 Office Visit Neurology Donovan Mayer MD [facility] NEUROLOGY DEPT. [place], [place] [address] (Wo rk) 04/24/2022 Appointment Hematology and Oncology 04/24/2022 Office Visit Hematology and Oncology Renea Navarro MD [facility] er HEMATOLOGY/ONCOL CLAUDE DEPT. [place], [place] [address] (Wo rk) documented as of this encounter Visit Diagnoses Not on filedocumented in this encounter Care Teams Forklift Wheel Loader Relationship Specialty Start Date End Date Fitz Jenkins MD PCP - General 04/10/10 07/27/[address] [place] [address] documented as of this encounter
--- OUTSIDE RECORDS SUMMARY | 2021-12-21 00:38 | XMS_ITS | Encounter Summary ---
:1950 Author Organization [facility] [place] [address] Care Team Providers Name Role Phone Fitz Jenkins MD Primary Care Provider [phone] Reason for Referral Psychiatric (Routine) - Closed by system - Referral Specialty Diagnoses / Procedures Referred By Contact Refer red To Contact Psychiatry Diagnoses Psychophysiological insomnia Jimi Gonzalez MD [place], Janette L, PhD [facility] SLEEP DISORDERS [facility] [place] [address] Fax: Referral ID Status Reason Start Expiration Visits Visits Date Date Requested Authorized [id number] Closed by Consult, 11/13/2010 05/12/2011 1 1 system - Test & Referral Treat Reason for Visit Reason Comments Obstructive Sleep Apnea Encounter Details Date Type Department Care Team Description 11/12/2010 Office Visit Sleep Medicine Jimi Gonzalez, CARLOS (obstructive sleep apnea ) (Primary Dx); [facility] Psychophysiological insomnia [place] [id number] [place] [phone] [facility] [place], [place] [address] Social History Tobacco Use Types [...] Sign Reading Time Taken Comments Blood Pressure 127/85 11/12/2010 3:17 PM EDT Pulse 69 11/12/2010 3:17 PM EDT Temperature - - Respiratory Rate - - Oxygen Saturation - - Inhaled Oxygen Concentration - - Weight 116.6 kg (257 lb) 11/12/2010 3:17 PM EDT Height 175.3 cm (5' 9) 11/12/2010 3:17 PM EDT Body Mass Index 37.95 11/12/2010 3:17 PM EDT documented in this encounter Progress Notes Jimi Gonzalez MD - 11/12/2010 3:52 PM EDT Sleep Medicine Follow-Up Note IDENTIFYING INFORMATION Patient's Name: Saundra Blanton Date of : 1950 REFERRING PHYSICIAN: Purvi PRIMARY CARE PHYSICIAN: FITZ JENKINS MD Date of Service: 11/12/2010 History of Present Illness: Saundra Blanton is a 60 y.o. female seen for treatment follow-up of obstructive sleep apnea. Treatment: Device: auto-PAP Pressure: 4-16 CWP Interface: nasal mask Chin strap: yes Ongoing Complaints While Using PAP: Snoring: Severe with mask on Frequency: Unknown Observed apneas: Unknown Mouth breathing: Unknown Dry mouth: yes Nocturnal Gasping: None Pressure intolerance: No Mask comfort: no mask discomfort reported. Mask leak:: No leak is reported <location of leak> Aerophagia: None Nasal obstruction: None Daytime Symptoms: Beverly: 13/24 Upon Awakening: Unrefreshed Daytime naps: 4-5 times a week, of approximately 1 h duration Involuntary Dozing: Yes (tv, reading) Cognitive Symptoms: Yes, occasionally, slwo thinking Driving: Yes, difficulty with drowsiness or dozing at the wheel Close calls related to sleepiness: yes, veering off into the other emily on a trip to [place] Accidents related to sleepiness: no Sleep Pattern: Bedtime: 11 P.M. Rise time: 6-7 A.M. On days off: 6-7 AM Shift Work: no Location: Bed alone Head of Bed: flat Preferred Position: Lateral Initial insomnia complaint: Yes with a sleep onset latency of: 30 min. due to thinking, worrying andphysical discomfort (back and foot pain) Unexplained arousals: Yes Nocturia: Yes, on average 1 time a night Middle or terminal insomnia complaint: Yes, due to pain, thinking Patient Perceived Overall Treatment Outcome: The patient reports mild overall improvement since initiation of treatment. Compliance Card Data: not available Review of Systems: ENT: Nasal Obstruction: None CONSTITUTIONAL: Weight: Stable Medications: Current outpatient prescriptions:citalopram (CELEXA) 10 mg tablet, Take 10 mg by mouth daily., Disp:, Rfl: ; OXYGEN-AIR DELIVERY SYSTEMS (HORIZON NASAL CPAP SYSTEM MISC), by Mis.(Non-Drug; Combo Route) route., Disp: , Rfl: ; TENS UNITS MISC, by Misc.(Non-Drug; Combo Route) route. Tens machine Daily for back and leg , Disp: , Rfl: OXYcodone-acetaminophen (PERCOCET) 5-325 mg per tablet, Take by mouth. Take 1 or 2 pills twice a dayas needed. Not more than 2 days in a week, Disp: 30 tablet, Rfl: 0; WARFARIN SODIUM (COUMADIN ORAL),Take 10 mg by mouth daily., Disp: , Rfl: ; pantoprazole (PROTONIX) 40 mg tablet, Take 40 mg by mouthdaily., Disp: , Rfl: ; simvastatin (ZOCOR) 20 mg tablet, Take 20 mg by mouth nightly., Disp: , Rfl: levothyroxine (SYNTHROID) 25 mcg tablet, Take 25 mcg by mouth daily., Disp: , Rfl: ; topiramate (TOPAMAX) 100 mg tablet, Take 100 mg by mouth 2 times daily., Disp: , Rfl: ; valsartan (DIOVAN) 160 mg tablet, Take 160 mg by mouth daily., Disp: , Rfl: Physical Exam: Wt Readings from Last 3 Encounters: 06/27/11 116.574 kg (257 lb) 10/19/10 113.853 kg (251 lb) Body mass index is 37.95 kg/(m^2). BP Readings from Last 3 Encounters: 11/12/10 127/85 10/19/10 136/85 Pulse Readings from Last 3 Encounters: 11/12/10 69 10/19/10 68 1.753 m (5' 9) Alert, cooperative female in no distress. Gait and station are normal Respirations are unlabored No unusual mannerisms or behaviors Speech coherent and logical Mood is euthymic Assessment: Saundra Blanton is a 60 y.o. female who is seen for follow-up of obstructive sleep apnea. Diagnostic Codes: 1. Obstructive sleep apnea (final) 327.23. 2. Psychophysiological insomnia 307.42. Time spent face to face: 30 min. Time spent devoted to counseling and discussion: 15 min. Plan: 1. Auto-PAP at 4-16 CWP via a nasal mask. 2. Download will be sent to me for review; anticipate no problems as nothing has changed since the last visit. 3. Referral to CBT-I for psychophysiological insomnia. 4. Follow up in 6 months. documented in this encounter Plan of Treatment Upcoming Encounters Date Type Specialty Care Team Description 03/06/2022 Office Visit Cardiology Lizeth Frazier MD [facility] [address] [place], [place] [address] (Amado quick) 03/18/2022 Office Visit Neurology Donovan Mayer MD [facility] NEUROLOGY DEPT. [place], [place] [address] (Amado quick) 04/24/2022 Appointment Hematology and Oncology 04/24/2022 Office Visit Hematology and Oncology Renea Navarro MD [facility] HEMATOLOGY/ONCOL CLAUDE DEPT. [place], [place] [address] (Amado quick) Scheduled Referrals Name Type Priority Associated Diagnoses Order S chedule PSYCHIATRY Outpatient Referral Routine Psychophysiological i nsomnia Ordered: 11/13/2010 documented as of this encounter Visit Diagnoses Diagnosis CARLOS (obstructive sleep apnea) - Primary Obstructive sleep apnea (adult) (pediatr ic) Psychophysiological insomnia Persistent disorder of initiating or steve ntaining sleep documented in this encounter Care Teams Electrical Systems Design Engineer Relationship Specialty Start Date End Date Fitz Jenkins MD PCP - General 04/10/10 07/27/[address] [place] [address] documented as of this encounter
--- OUTSIDE RECORDS SUMMARY | 2021-12-21 00:38 | XMS_ITS | Encounter Summary ---
:1950 Author Organization [facility] [place] [address] Care Team Providers Name Role Phone Fitz Jenkins MD Primary Care Provider [phone] Encounter Details Date Type Department Care Team Description 10/18/2010 Abstract Neurology at [facility] Donovan Mayer MD [facility] [place] [phone] NEUROLOGY DEPT. [phone] [place], [place] [address] (Wo rk) Social History Tobacco [...] 03/06/2022 Office Visit Cardiology Lizeth Frazier MD [facility] [address] [place] [address] (Wo rk) 03/18/2022 Office Visit Neurology Donovan Mayer MD [facility] NEUROLOGY DEPT. [place], [place] [address] (Wo rk) 04/24/2022 Appointment Hematology and Oncology 04/24/2022 Office Visit Hematology and Oncology Renea Navarro MD [facility] er HEMATOLOGY/ONCOL CLAUDE DEPT. [place], [place] [address] (Wo rk) documented as of this encounter Visit Diagnoses Not on filedocumented in this encounter Care Teams Hotel Registration Clerk Relationship Specialty Start Date End Date Fitz Jenkins MD PCP - General 04/10/10 07/27/[address] [place] [address] documented as of this encounter
--- OUTSIDE RECORDS SUMMARY | 2021-12-21 00:38 | XMS_ITS | Encounter Summary ---
:1950 [place] [address] Care Team Providers Name Role Phone Fitz Jenkins MD Primary Care Provider [phone] Encounter Details Date Type Department Care Team Description 05/23/2010 Orders Only Lab Esequiel Martinez III, [facility] Kade [facility] [place] [address] [address] [facility] [address] [phone] [place], [place] [address] (Wo rk) Social History Tobacco [...] MD [facility] [address] [place] [address] (Wo rk) 03/18/2022 Office Visit Neurology Donovan Mayer MD [facility] NEUROLOGY DEPT. [place], [place] [address] (Wo rk) 04/24/2022 Appointment Hematology and Oncology 04/24/2022 Office Visit Hematology and Oncology Renea Navarro MD [facility] er HEMATOLOGY/ONCOL CLAUDE DEPT. [place], [place] [address] (Wo rk) documented as of this encounter Procedures Procedure Name Priority Date/Time Associated Diagnosis Comme nts SURGICAL PATHOLOGY Routine 05/23/2010 12:28 PM Re sults for this REPORT EST procedure are i n the results section. documented in this encounter Results PATHOLOGY SURGICAL PATHOLOGY FINAL REPORT (05/23/2010 12:28 PM EST) Component Value Ref Test Analysis Performed At [facility] Range Method Time Signature Surgical CERNER Pathology ? [facility] Report ? Provider: ?? LINDA MONTELONGO, ESEQUIEL Pt. Name: ?? SAUNDRA DHALIWAL ?A ? Acc #: ?[id number] ? Pt. ? Col Date: ?? 05/23/2010 ?/Sex: ? 1950,(60 ? years),Female ? Rec Date: ?? 05/23/2010 ?LOC: ?4M ? SURGICAL PATHOLOGY ? ---Pathologic Diagnosis--- ? Skin of left vertex of scalp, shave biopsy: ? 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 ? CR-0 ? Dictated by: ? Richie Muñiz MD ?Dermatopathology Fellow ? As the attending phys kelly, I attest that I examined the histologic slides, ? and confirm Dr. Richie Muñiz's diagnosis. ? 05/24/10 ? GLW ? 05/24/10 Verified by: ? Leatha Gonzalez MD ? Dermatopatholo gist ? (Electronic Si gnature) ? The attending pathologist whose signature appears o n this report has ? reviewed all diagnostic slides and has edited the jaci ss and/or ? microscopic portion of the report in rendering the fi nal pathologic ? diagnosis. ? ---Microscopic Description--- ? Slides reviewed, microscopic description not recorded . ? ---Gross Description--- ? Labeled/Fixative: ? Labeled with the patient's na me, formalin. ? Qty/Size/Weight: ?Single shave, 0.5 cm, pink-t an skin. ? Sections/Processing: ??Bisected. ??(T1) vms/EJR ? ---Clinical Information--- ? Specimen Submitted: ? A - Shave, (L) vertex of scalp, shave ? Clinical History: ? Irritated erythematous papule - Pt picks at area ? Clinical Diagnosis: ? Angioma, irritated Specimen (Source) Anatomical Collection Method Collection Time Re ceived Time Location / / Volume Laterality 05/23/2010 12:28 PM EST Esequiel Duggan III, MD PATHOLOGY/CYTOLOGY ORDERABLE S Performing Organization Address City/State/[place] [address] CERNER MILLENNIUM documented in this encounter Visit Diagnoses Not on filedocumented in this encounter Care Teams Agency Sales Representative Relationship Specialty Start Date End Date Fitz Jenkins MD PCP - General 04/10/10 07/27/[address] [place] [address] documented as of this encounter
--- OUTSIDE RECORDS SUMMARY | 2021-12-21 00:38 | XMS_ITS | Encounter Summary ---
:1950 Author Organization [facility] [place] [address] Care Team Providers Name Role Phone Fitz Jenkins MD Primary Care Provider Encounter Details Date Type Department Care Team Description 03/25/2011 Office Visit Psychiatry and Deborah Comer t disorder of Behavioral Health at , PhD initiating or [facility] maintaining sleep [facility] (Primary Dx) [facility] PSYCHIATRY DEPT. [place], [place] [phone] [phone] Social History Tobacco Use Types Packs/Day Years [...] encounter Progress Notes Deborah Comer, PhD - 03/25/2011 10:02 AM EST Behavioral Medicine Service Individual Therapy Followup/Cognitive Behavioral Therapy-- 45 minutes Chief Complaint:sleep S/O: Saundra Blanton returns with her sleep schedule completed. Average sleep duration was 6.4 hours with a range of 5-8 hours. Bedtimes ranged from 10pm-12am and wakeup times ranged from 6am-9am. Ms. Blanton states that she did nap 2 times, both on Friday afternoons. Ms. Blanton is able to brainstorm ways to avoid sleep at those times (e.g., cook, clean, walk, scrabble, etc). Ms. Blanton states that sheis sleeping less in the evening and overall feels more energy during the day. The session also focused on increasing exercise frequency and duration. A: 307.42 P: Saundra M Harvinder will get up no later than 6:30am and go to bed no later than 11pm. She will plan activities in the afternoon and evening to keep awake. RTC 2 weeks for followup. documented in this encounter Plan of Treatment Upcoming Encounters Date Type Specialty Care Team Description 03/06/2022 Office Visit Cardiology Lizeth Frazier MD [facility] [place], [place] [address] (Wo rk) 03/18/2022 Office Visit Neurology Donovan Mayer MD [facility] NEUROLOGY DEPT. [place], [place] [address] (Wo rk) 04/24/2022 Appointment Hematology and Oncology 04/24/2022 Office Visit Hematology and Oncology Renea Navarro MD [facility] HEMATOLOGY/ONCOL CLAUDE DEP. 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
--- OUTSIDE RECORDS SUMMARY | 2021-12-21 00:38 | XMS_ITS | Encounter Summary ---
:1950 Author Organization [facility] [place] [address] Care Team Providers Name Role Phone Fitz Jenkins MD Primary Care Provider [phone] Reason for Visit Reason Comments Sleep Disorder Encounter Details Date Type Department Care Team Description 02/25/2011 Office Visit Psychiatry and Deborah Comer t disorder of Behavioral Health at [place], PhD initiating or [facility] maintaining sleep [facility] (Primary Dx) Drive PSYCHIATRY DEPT. [place] [phone] Social History Tobacco Use Types Packs/Day Years [...] encounter Progress Notes Deborah Comer, PhD - 02/25/2011 4:56 PM EDT Behavioral Medicine Service Individual Therapy Followup/Cognitive Behavioral Therapy-- 50 minutes Chief Complaint:sleep S/O: Saundra Blanton returns with her sleep schedule completed. Average sleep duration was 6.4 hours with a range of 5-8 hours. Bedtimes ranged from 9:30pm- 12:30pm and wakeup times ranged from 5:45am-7am. Ms. Blanton states that she did nap for about 1 hour on 3 afternoons and struggled to stay asleep in the evening. The session focused on problem solving around daytime and evening napping. A: 307.42 P: Saundra Blanton will get up no later than 6:30am and go to bed no later than 11:15pm. She will plan activities in the afternoon and evening to keep awake. RTC 2 weeks for followup. documented in this encounter Plan of Treatment Upcoming Encounters Date Type Specialty Care Team Description 03/06/2022 Office Visit Cardiology Lizeth Frazier MD [facility] [address] [place], [place] [address] (Wo rk) 03/18/2022 Office Visit Neurology Donovan Mayer MD [facility] NEUROLOGY DEPT. [place], [place] [address] (Wo rk) 04/24/2022 Appointment Hematology and Oncology 04/24/2022 Office Visit Hematology and Oncology Renea Navarro MD [facility] HEMATOLOGY/ONCOL CALIY DEPT. 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
--- OUTSIDE RECORDS SUMMARY | 2021-12-21 00:38 | XMS_ITS | Encounter Summary ---
:1950 Author Organization [facility] [place] [address] Care Team Providers Name Role Phone Fitz Jenkins MD Primary Care Provider [phone] Encounter Details Date Type Department Care Team Description 04/08/2011 Office Visit Psychiatry and Deborah Comer t disorder of Behavioral Health at , PhD initiating or [facility] maintaining sleep [facility] (Primary Dx) [facility] PSYCHIATRY DEPT. [place], [place] [phone] [phone] Social History Tobacco Use Types Packs/Day Years [...] encounter Progress Notes Deborah Comer, PhD - 04/08/2011 2:55 PM EST Behavioral Medicine Service Individual Therapy Followup/Cognitive Behavioral Therapy-- 50 minutes Chief Complaint:sleep S/O: Saundra Blanton returns with her sleep schedule completed. Average sleep duration was 6.2 hours with a range of 5.5-7 hours. Bedtimes ranged from 10:15pm-12am and wakeup times ranged from 5:30am-7:30am. Ms. Blanton states that she did not nap in the past 2 weeks and did better at staying awake during the evening. The session also focused on increasing exercise frequency and duration. A: 307.42 P: Saundra Blanton will get up no later than 6:30am and go to bed no later than 11pm. She will plan activities in the afternoon and evening to keep awake. Ms. Blanton will focus on increasing aerobic exercise. RTC 2 weeks for followup. documented in this encounter Plan of Treatment Upcoming Encounters Date Type Specialty Care Team Description 03/06/2022 Office Visit Cardiology Lizeth Frazier MD [facility] [address] [place], [place] [address] (Wo rk) 03/18/2022 Office Visit Neurology Donovan Mayer MD [facility] NEUROLOGY DEPT. [place], [place] [address] (Wo rk) 04/24/2022 Appointment Hematology and Oncology 04/24/2022 Office Visit Hematology and Oncology Renea Navarro MD [facility] HEMATOLOGY/ONCOL OGY DEPT. 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
--- OUTSIDE RECORDS SUMMARY | 2021-12-21 00:38 | XMS_ITS | Encounter Summary ---
:1950 Author Organization [facility] [place] [address] Care Team Providers Name Role Phone Fitz Jenkins MD Primary Care Provider [phone] Encounter Details Date Type Department Care Team Description 06/04/2010 Follow-Up Gastroenterology at [facility] Lor Gonzalez, [facility] [place] [address] [facility] [phone] GASTROENTEROLOGY DEPT. [place], [place] [address] (Wo rk) Social History Tobacco Use Types [...] Frazier MD [facility] [address] [place] [address] (Wo rk) 03/18/2022 Office Visit Neurology Donovan Mayer MD [facility] NEUROLOGY DEPT. [place], [place] [address] (Wo rk) 04/24/2022 Appointment Hematology and Oncology 04/24/2022 Office Visit Hematology and Oncology Renea Navarro MD [facility] er HEMATOLOGY/ONCOL CLAUDE DEPT. [place], [place] [address] (Wo rk) documented as of this encounter Visit Diagnoses Not on filedocumented in this encounter Care Teams School Traffic Guard Relationship Specialty Start Date End Date Fitz Jenkins MD PCP - General 04/10/10 07/27/[address] [place] [address] documented as of this encounter
--- OUTSIDE RECORDS SUMMARY | 2021-12-21 00:38 | XMS_ITS | Encounter Summary ---
:1950 Author Organization [facility] [place] [address] Care Team Providers Name Role Phone Fitz Jenkins MD Primary Care Provider [phone] Reason for Visit Reason Comments Back Pain to ruptured discs Encounter Details Date Type Department Care Team Description 10/19/2010 Follow-Up Neurology at [facility] Donovan Mayer, Lumbar radiculopathy [facility] (Primary Dx) [place] [address] NEUROLOG[address] DEPT. [place], [place] [address] Social History Tobacco Use Types [...] Sign Reading Time Taken Comments Blood Pressure 136/85 10/19/2010 8:55 AM EDT Pulse 68 10/19/2010 8:55 AM EDT Temperature - - Respiratory Rate - - Oxygen Saturation - - Inhaled Oxygen Concentration - - Weight 113.9 kg (251 lb) 10/19/2010 8:55 AM EDT Height 175.3 cm (5' 9) 10/19/2010 8:55 AM EDT Body Mass Index 37.07 10/19/2010 8:55 AM EDT documented in this encounter Patient Instructions Patient InstructionsDonvoan Mayer MD - 10/19/2010 9:45 AM EDT I think y our are doing reasonably well Headaches Back pain and foot pain are reasonably controlled. I understand that because of the stomach problems you cannot take naproxen or other drugs of that class, I am giving you a prescription fore percocet 1 or 2 pills twice a day as needed for bad days. Do not use this more than 2 days in a week, or headaches will get worse, I will see you back in 6 months documented in this encounter Progress Notes Donovan Mayer MD - 10/19/2010 9:29 AM EDT Chief Complaint: Lumbar radiculopathy, headaches, and pain in her feet. History: The patient is seen in followup today. She is doing better. She is not complaining of frequent headaches. She continues to have back and leg pain. Her ankle and foot, where she had the sprain and fracture on the right, are improved. Physical Exam: Her exam is stable. Head, eyes, ears, nose, and throat were normal. Cranial nerves were normal. Strength was essentially normal. Reflexes were noteworthy for depressed right ankle reflexas previously noted. She has patchy sensory loss for pin and vibration in both legs, worse in a right L-5 distribution. Her gait continues to be somewhat ataxic and antalgic. Labortory Studies: None today Medications: In electronic record Impression: The situation is improved. 1. She has chronic mild lumbar radiculopathy with symptoms worse on the right. I do not think there is any major deterioration. 2. Most of the pain in her right foot is, I believe, musculoskeletal and related to the fracture andsprain. She is still using a brace. She was seen by Dr. Baron. Conservative management was recommended. 3. She has chronic headaches that are doing fairly well. 4. There was concern about recurrence of a carcinoid tumor, but that was apparently ruled by endoscopy done in [facility]. IBS symptoms are under control. 5. For al her chronic pain complaints she is using only tylenol 1000 mg bid prn. I think this is reasonable and I note she cannot tolerate NSAIDs because of the GI problems. I advised and gave Rx for alimited supply of Percocet to use used as needed for bad days, not more than 2 days in a week, so asnot to produce analgesic rebound. I will see her back in six 6 months or sooner if necessary. Thank you for this consultation. cc: FITZ JENKINS MD AUG[address]INE [address] [place] [address] documented in this encounter Plan of Treatment Upcoming Encounters Date Type Specialty Care Team Description 03/06/2022 Office Visit Cardiology Lizeth Frazier MD [facility] [place], [place] [address] (Wo rk) 03/18/2022 Office Visit Neurology Donovan Mayer MD [facility] NEUROLOGY DEPT. [place], [place] [address] (Wo rk) 04/24/2022 Appointment Hematology and Oncology 04/24/2022 Office Visit Hematology and Oncology Renea Navarro MD [facility] HEMATOLOGY/ONCOL CALIY DEPT. [place], [place] [address] (Wo rk) documented as of this encounter Visit Diagnoses Diagnosis Lumbar radiculopathy - Primary Thoracic or lumbosacral neuritis or radi culitis, unspecified documented in this encounter Care Teams Property Accountant Relationship Specialty Start Date End Date Fitz Jenkins MD PCP - General 04/10/10 07/27/[address] [place] [address] documented as of this encounter
--- OUTSIDE RECORDS SUMMARY | 2021-12-21 00:38 | XMS_ITS | Encounter Summary ---
:1950 Author Organization [facility] [place] [address] Care Team Providers Name Role Phone Fitz Jenkins MD Primary Care Provider [phone] Reason for Visit Reason Comments Skin Check Encounter Details Date Type Department Care Team Description 03/11/2011 Follow-Up Dermatology Esequiel Duggan III, Solar lentigo; [facility] [place] [address] [facility] [phone] [place] [phone] (Wo rk) Social History Tobacco Use Types [...] Progress Notes Esequiel Duggan III, MD - 03/11/2011 5:08 PM EDT DERMATOLOGY ESTABLISHED PATIENT CLINIC NOTE Date of service: 03/11/2011 Saundra Blanton : 1950 Provider: Esequiel Duggan MD PROBLEM: Skin check SKIN HISTORY: stasis in past HPI Saundra Blanton is a 60 y.o. year old female here today for her skin exam. She reports no concerns today and the tinea pedis and the stasis dermatitis has completely resolved. Sh would like to have a skin check. ADR: Allergies Allergen Reactions ??? Latex leaves red welts and rash, leaves red welts and rash ??? Sulfa (Sulfonamide Antibiotics) Rash ??? Gloves, Latex leaves red welts and rash, leaves red welts and rash ??? Latex Dams leaves red welts and rash, leaves red welts and rash ??? Codeine Phos ??? Hydrocodone ??? Gluten ROS General: feeling well Skin: denies other skin complaints EXAM General: NAD, pleasant, cooperative Skin: A total body skin exam except for the genitalia was performed. This includes examination of the skin of the face, ears, neck, chest, axillae, left and right upper and lower extremities, hands, feet, abdomen, back, and buttocks. The genitalia, perineum, and perianal areas were not examined. Significant skin findings: Significant skin findings: A. 0.3-0.6cm light-brown evenly pigmented, well-demarcated macule on face and back-lentigines B. Multiple 0.2-0.4cm bright red, well-demarcated papules No worrisome nevi are noted. ASSESSMENT/PLAN: A. Lentigines and solar lentigines. Discussed these with the pt. Reassured her . The nature of sun-induced photo-aging and skin cancers is discussed. Sun avoidance, protective clothing, and the use of 30-SPF sunscreens is advised. Observe closely for skin damage/changes, and call if such occurs. B. Schreiber Angioma(s). Reassure, no treatment necessary. C. No signs of the stasis dermatitis and tinea pedis Follow up once per year or sooner if needed Note initiated by: ALEXANDRA RAMIREZ LPN Routed to physician for review and changes: Esequiel Duggan MD Section of Dermatology [facility] documented in this encounter Plan of Treatment Upcoming Encounters Date Type Specialty Care Team Description 03/06/2022 Office Visit Cardiology Lizeth Frazier MD [facility] er [place], [place] [address] (Wo rk) 03/18/2022 Office Visit Neurology Donovan Mayer MD [facility] NEUROLOGY DEPT. [place], [place] [address] (Wo rk) 04/24/2022 Appointment Hematology and Oncology 04/24/2022 Office Visit Hematology and Oncology Renea Navarro MD [facility] HEMATOLOGY/ONCOL CLAUDE DEPT. [place], [place] [address] (Wo rk) documented as of this encounter Visit Diagnoses Diagnosis Solar lentigo Other dyschromia Schreiber angioma Nevus, non-neoplastic documented in this encounter Care Teams Floral Assistant Relationship Specialty Start Date End Date Fitz Jenkins MD PCP - General 04/10/10 07/27/[address] [place] [address] documented as of this encounter
--- OUTSIDE RECORDS SUMMARY | 2021-12-21 00:38 | XMS_ITS | Encounter Summary ---
:1950 Author Organization [facility] [place] [address] Care Team Providers Name Role Phone Fitz Jenkins MD Primary Care Provider [phone] Reason for Visit Reason Comments Insomnia Encounter Details Date Type Department Care Team Description 03/11/2011 Office Visit Psychiatry and Deborah Comer t disorder of Behavioral Health at [facility], PhD initiating or [facility] maintaining sleep [facility] (Primary Dx) Drive PSYCHIATRY DEPT. [place] [phone] Social History Tobacco Use Types Packs/Day Years [...] encounter Progress Notes Deborah Comer, PhD - 03/11/2011 3:04 PM EDT Behavioral Medicine Service Individual Therapy Followup/Cognitive Behavioral Therapy-- 45 minutes Chief Complaint:sleep S/O: Saundra Blanton returns with her sleep schedule completed. Average sleep duration was 6.0 hours with a range of 5-6.75 hours. Bedtimes ranged from 10:30pm-12am and wakeup times ranged from 6am-8am.Ms. Blanton states that she did nap for about 1 hour one day and 3 hours on another day. Ms. Blanton states that she is sleeping less in the evening and overall feels more energy during the day. The session focused on problem solving around [...] Lizeth Frazier MD [facility] [place], [place] [address] (Wo rk) 03/18/2022 Office Visit Neurology Donovan Mayer MD [facility] NEUROLOGY DEPT. [place], [place] [address] (Wo rk) 04/24/2022 Appointment Hematology and Oncology 04/24/2022 Office Visit Hematology and Oncology Renea Navarro MD [facility] HEMATOLOGY/ONCOL CALIY DEPT. 

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
--- OUTSIDE RECORDS SUMMARY | 2021-12-21 00:38 | XMS_ITS | Encounter Summary ---
:1950 Author Organization [facility] [address] Care Team Providers Name Role Phone Fitz Jenkins MD Primary Care Provider [phone] Reason for Visit Reason Comments Insomnia Encounter Details Date Type Department Care Team Description 02/11/2011 Office Visit Psychiatry and Deborah Comer t disorder of Behavioral Health at [facility], PhD initiating or [facility] maintaining sleep [facility] (Primary Dx) Drive PSYCHIATRY DEPT. [place] [phone] Social History Tobacco Use Types Packs/Day Years [...] encounter Progress Notes Deborah Comer, PhD - 02/11/2011 2:55 PM EDT Behavioral Medicine Service Individual Therapy Followup/Cognitive Behavioral Therapy-- 50 minutes Chief Complaint:sleep S/O: Saundra Blanton returns with her sleep schedule completed. Average sleep duration was 6.22 hourswith a range of 4-8 hours. Bedtimes ranged from 9:15pm- 11:30pm and wakeup times ranged from 5:30am-10:15am. Worry, physical pain, and too light of a room was identified as factors interfering with sleep. The session focused on setting a sleep schedule. A: 307.42 P: Saundra Blanton will get up no later than 6:30am and go to bed no later than 11:30pm. RTC 2 weeks for followup. documented in this encounter Plan of Treatment Upcoming Encounters Date Type Specialty Care Team Description 03/06/2022 Office Visit Cardiology Lizeth Frazier MD [facility] [place], [place] [address] (Wo rk) 03/18/2022 Office Visit Neurology Donovan Mayer MD [facility] NEUROLOGY DEPT. [place], [place] [address] (Wo rk) 04/24/2022 Appointment Hematology and Oncology 04/24/2022 Office Visit Hematology and Oncology Renea Navarro MD [facility] HEMATOLOGY/ONCOL CLAUDE DEPT. 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
--- OUTSIDE RECORDS SUMMARY | 2021-12-21 00:38 | XMS_ITS | Encounter Summary ---
:1950 Author Organization [facility] [place] [address] Care Team Providers Name Role Phone Fitz Jenkins MD Primary Care Provider [phone] Encounter Details Date Type Department Care Team Description 11/15/2010 Orders Only Urology at [facility] Lissy Du MD Lipoma (Primary Dx) [facility] [place] [phone] UROLOGY [phone] [place], [place] [address] (Wo rk) Social History Tobacco [...] Lizeth Frazier MD [facility] [address] [place] [address] (Wo rk) 03/18/2022 Office Visit Neurology Donovan Mayer MD [facility] NEUROLOGY DEPT. [place], [place] [address] (Wo rk) 04/24/2022 Appointment Hematology and Oncology 04/24/2022 Office Visit Hematology and Oncology Renea Navarro MD [facility] HEMATOLOGY/ONCOL OGY DEPT. [place], [place] [address] (Wo rk) documented as of this encounter Results US retroperitoneal complete (03/02/2012 1:21 PM EDT) Anatomical Region Laterality Modality Abdomen Ultrasound Specimen (Source) Anatomical Collection Method Collection Time Re ceived Time Location / / Volume Laterality 03/02/2012 1:21 PM EDT Narrative 03/02/2012 1:28 PM EDT ? Renal ?(Signed Final 03/02/2012 01:27 pm) Patient Info ID: ? [id number] ?: ??[birth year] (61 yrs) Name: ? SAUNDRA DHALIWAL ? Visit Date: 03/02/2012 01:10 pm Performed By Performed By: ? Linda Laurent RDMS Attending: ?Jun WHITLEY, Imer Grewal Referred By: ?LISSY DU,Kade Service(s) Provided URETRO - Retroperitoneal Complete - 002 [id number] Indications bilateral angiomyolipoma Right Kidney Size (cm) [...] Final 03/02/2012 01:27 pm) Patient Info ID: [id number] : [birth year] (61 yrs ) Name: SAUNDRA DHALIWAL Visit Date: 2011 01:10 pm Performed By Performed By: Linda Laurent [facility] Attending: Imer Barahona MD Referred By: LISSY DU D Service(s) Provided URETRO - Retroperitoneal Complete - 002 [id number] Indications bilateral angiomyolipoma Right Kidney Size (cm) [...] Signed Final Report 03/02 01:27 pm Lissy Du MD IMG US GEN ORDERABLES documented in this encounter Visit Diagnoses Diagnosis Lipoma - Primary Lipoma of unspecified site Lipoma Lipoma of unspecified site documented in this encounter Care Teams Train Clerk Relationship Specialty Start Date End Date Fitz Jenkins MD PCP - General 04/10/10 07/27/17 [address] [place] [address] documented as of this encounter
--- OUTSIDE RECORDS SUMMARY | 2021-12-21 00:38 | XMS_ITS | Encounter Summary ---
:1950 Author Organization [facility] [place] [address] Care Team Providers Name Role Phone Fitz Jenkins MD Primary Care Provider [phone] Encounter Details Date Type Department Care Team Description 05/23/2010 Follow-Up Dermatology Esequiel Duggan III, MD [facility] Behavioral Health Unit [facility] [place] [address] [facility] [address]-DERMATOLGY [phone] [place], [place] [address] (Wo rk) Social History Tobacco [...] Lizeth Frazier MD [facility] [address] [place] [address] (Wo rk) 03/18/2022 Office Visit Neurology Donovan Mayer MD [facility] NEUROLOGY DEPT. [place], [place] [address] (Wo rk) 04/24/2022 Appointment Hematology and Oncology 04/24/2022 Office Visit Hematology and Oncology Renea Navarro MD [facility] HEMATOLOGY/ONCOL CLAUDE DEPT. [place], [place] [address] (Wo rk) documented as of this encounter Visit Diagnoses Not on filedocumented in this encounter Care Teams Residential Appliance Repair Technician Relationship Specialty Start Date End Date Fitz Jenkins MD PCP - General 04/10/10 07/27/[address] [place] [address] documented as of this encounter
--- OUTSIDE RECORDS SUMMARY | 2021-12-21 00:40 | XMS_ITS | Encounter Summary ---
:1950 Author Organization [facility] Address [address] [place] [address] Care Team Providers Name Role Phone Fitz Jenkins MD Unavailable Fitz Jenkins MD Primary Care Provider Encounter Details Date Type Department Care Team Description 08/19/2017 Results Only [facility]- Jayme Dugan, [address] [place] [address] [place] [address] (Wo rk) Social History Tobacco Use Types Packs/Day Years Used Date Never Smoker Smokeless Tobacco: Never Used Alcohol Habits Answer Date Recorded How often do you have a drink containing alcohol? Not asked How many drinks containing alcohol do you have on a typical Not asked day when you are drinking? How often do you have six or more drinks on one occasion? No t asked Comment: occasional 01/14/2012 Sex Assigned at Date Recorded Not on file documented as of this encounter Plan of Treatment Not on filedocumented as of this encounter Procedures Procedure Name Priority Date/Time Associated Diagnosis Comme [facility] SURGICAL PATHOLOGY Routine 08/19/2017 17:00 Resul ts for this EDT procedure are i n the results section. documented in this encounter Results SURGICAL PATHOLOGY (08/19/2017 17:00 EDT) Pathology Report: SURGICAL PATHOLOGY REPORT [facility] Reports generated via electronic interface contain jennifer ginal data; LABORATORY however they are lacking the format of the original re port. SERVICES Caution should be taken when reading/interpreting unfo rmatted reports. Name: ? SAUNDRA DHALIWAL ? Accession #: ? [id number] ? : ? 1950 (Age: 67) ??F ? Collect Date: ? 08/19/2017 ? Location: ? [facility] ? Receive Date: ? 8 ? Provider: JAYME PURCELL MD Copy to: MARIAN CARVAJAL BULKER ? Final Pathologic Diagnosis: STOMACH, POLYPS, POLYPECTOMIES: - Fundic gland polyps. - Gastric hyperplastic polyp. Document reviewed and electronically signed by: ANKIT RADER MD Report ??Date: 08/21/2017 17:29 By the signature above, the attending physician certif ies that he/she has personally conducted a gross and/or microscopic examin ation of the described specimens and rendered or confirmed the above diagnosi s. Specimen(s) Received: Gastric polyps (greater than 20 polyps) Clinical History: History of gastric carcinoid, GERD Gross Description: ? Received in formalin labelled with proper patient identification (initials H, L) and gastric polyps a re 15 pink-grossman tissues (0.1 x 0.1 x 0.1 cm to 0.6 x 0.3 x 0.2 cm). Entirely submitted in blocks 1-5. ANAT Escamilla (ASCP) 08/20/2017 7:49 AM End of Report Specimen Performing Organization Address City/State/ZIP Code Phon e Number [facility] [address] [place] [address] SERVICES documented in this encounter Visit Diagnoses Not on filedocumented in this encounter Care Teams Clinical Administrative Coordinator Relationship Specialty Start Date End Date Fitz Jenkins MD PCP - General 03/06/16 08/20/[address] [place] [phone] Fitz Jenkins MD 02/08/16 [address] [place] [address] documented as of this encounter
--- OUTSIDE RECORDS SUMMARY | 2021-12-21 00:40 | XMS_ITS | Encounter Summary ---
:1950 Author Organization [facility] Address [address] [place] [address] Care Team Providers Name Role Phone Fitz Jenkins MD Unavailable Fitz Jenkins MD Primary Care Provider Encounter Details Date Type Department Care Team Description 07/22/2016 Hospital Encounter [facility]- [place] Unknown, Provider, [facility] [address] [facility] [phone] [place] [address] (Work) [phone] Social History Tobacco Use Types Packs/Day Years [...] Refills Start Date End Date acetaminophen (TYLENOL) 500 Take 1,000 mg by 0 mg tablet mouth 2 times daily. CALCIUM CARBONATE (CALCIUM Take 500 mg by mouth 0 500 ORAL) daily. duloxetine (CYMBALTA) 30 mg Take 30 mg by mouth 0 capsule daily. FA/MV,CA,IRON,MIN/LYCOPENE/ Take 1 Tab by mouth 0 LUT (MULTIVITAL ORAL) daily. gabapentin (NEURONTIN) 100 Take 300 mg by mouth 0 mg capsule daily. levothyroxine (SYNTHROID) Take 25 mcg by mouth 0 25 mcg tablet daily. LOPERAMIDE HCL (IMODIUM A-D Take 1 Tab by mouth 0 ORAL) as needed. Nystatin, Bulk, 100 % Powd by [facility]Non-Drug; 0 Combo Route) route as needed. pantoprazole (PROTONIX) 40 Take 40 mg by mouth 0 mg tablet daily. simvastatin (ZOCOR) 20 mg Take 20 mg by mouth 0 tablet daily. UNABLE TO FIND daily. Med Name: 0 Auto c-pap UNABLE TO FIND as needed. Med Name: 0 Tens Machine PRN valsartan (DIOVAN) 160 mg Take 160 mg by mouth 0 tablet daily. documented as of this encounter Discharge Disposition Disposition Code Departure Means Destination Home or Self Intermediate documented in this encounter Plan of Treatment Not on filedocumented as of this encounter Visit Diagnoses Not on filedocumented in this encounter Care Teams Internet E Commerce Specialist Relationship Specialty Start Date End Date Fitz Jnekins MD PCP - General 03/06/16 08/20/[address] [address] Fitz Jenkins MD 02/08/[address] [place] [address] documented as of this encounter
--- OUTSIDE RECORDS SUMMARY | 2021-12-21 00:40 | XMS_ITS | Encounter Summary ---
:1950 Author Organization [facility] Address [address] [place] [address] Care Team Providers Name Role Phone Unknown, Provider Primary Care Provider Fitz Jenkins MD Unavailable Encounter Details Date Type Department Care Team Description 03/01/2016 Hospital Encounter [facility]- [place] Unknown, Provider, [facility] [address] [facility] [phone] [place] [address] (Work) [phone] Social History Tobacco Use Types Packs/Day Years [...] needed. Nystatin, Bulk, 100 % Powd by Misc.(Non-Drug; 0 Combo Route) route as needed. pantoprazole [...] Code Departure Means Destination Home or Self [facility] documented in this encounter Plan of Treatment Not on filedocumented as of this encounter Visit Diagnoses Not on filedocumented in this encounter Care Teams Associate Pathologist Relationship Specialty Start Date End Date Unknown, Provider, PCP - General 02/08/16 03/05/16 Fitz Jenkins MD 02/08/16 [address] [place] [address] documented as of this encounter
--- OUTSIDE RECORDS SUMMARY | 2021-12-21 00:40 | XMS_ITS | Encounter Summary ---
:1950 Author Organization [facility] Address [address] [place] [address] Care Team Providers Name Role Phone Fitz Jenkins MD Primary Care Provider Encounter Details Date Type Department Care Team Description 02/01/2015 Results Only [facility]- PRISM Xavier Shen MD [phone] [place] [address] Social History Tobacco Use Types Packs/Day Years [...] Name Priority Date/Time Associated Diagnosis Comme nts PAP TEST- RESULT Routine 02/01/2015 0:00 EDT Resu lts for this ONLY procedure are i n the results section. documented in this encounter Results PAP TEST- RESULT ONLY (02/01/2015 0:00 EDT) Pathology Report: CYTOPATHOLOGY REPORT [facility] Reports generated via electronic interface contain jennifer ginal data; SERVICES however they are lacking the format of the original re port. Caution should be taken when reading/interpreting unfo rmatted reports. Name: ? SAUNDRA DHALIWAL ? Accession #: ? [id number] ? : ? 1950 (Age: 64) ??F ?Collect Date: ? 02/01/2015 ? Location: ? [facility] ? Receive Date: ? 02/03/20 15 ? Provider: XAVIER SHEN MD Copy to: FITZ JENKINS MD ? Final Report SPECIMEN ADEQUACY ? Satisfactory for Evaluation - transformation zone component present GENERAL CATEGORIZATION ? Negative for Intraepithelial Lesion or Malignan cy ?? Other: Additional clinical information: Last Pap 2013 negative/negative, STD exposure so patient asked for HPV screening Specimen/Source: ??Pap Test, Cervix/Endocervix, ThinPr ep Imaging System with manual evaluation Document reviewed and electronically signed by: ? QUANG Everett(ASCP) ? Report ??Date: 02/06/2015 09:19 HPV with Pap Test ? Date Ordered: ? 02/06/2015 ? Status: ?? Signed Out ?Date Complete: ? 02/07/2015 ? By: ??Sy stem Interface ? Date Reported: ? 02/07/2015 ? Interpretation RESULT: Positive for high or intermediate risk HPV. E6 OR E7 mRNA from one or more types of HPV types 16,1 8,31, 33,35,39,45,51,52,56,58,59,66, and 68 is detected by tree thinner mediated amplification. High and intermediate risk HPV types are associated wi th most squamous intraepithelial lesions and cervical can cers. Comments Document reviewed and electronically signed by: ? System Interface ? Report date: 02/07/2015 By the signature above, the attending physician certif ies that he/she has personally conducted a gross and/or microscopic examin ation of the described specimens and rendered or confirmed the above diagnosi s. End of Report Specimen Performing Organization Address City/State/ZIP Code Phon e Number [facility] [address] [place] [address] SERVICES documented in this encounter Visit Diagnoses Not on filedocumented in this encounter Care Teams Director Advertising Relationship Specialty Start Date End Date Fitz Jenkins MD PCP - General 06/01/10 02/07/16 [address] [place] [address] documented as of this encounter
--- OUTSIDE RECORDS SUMMARY | 2021-12-21 00:40 | XMS_ITS | Encounter Summary ---
:[address] [facility] Address [address] [place] [address] Care Team Providers Name Role Phone Fitz Jenkins MD Unavailable Fitz Jenkins MD Primary Care Provider Encounter Details Date Type Department Care Team Description 07/22/2016 Results Only [facility]- Jayme Dugan, [address] [place] [address] [place] [address] (Wo rk) Social History Tobacco Use [...] Procedure Name Priority Date/Time Associated Diagnosis Comme [facility] SURGICAL PATHOLOGY Routine 07/22/2016 16:39 Resul ts for this EST procedure are i n the results section. documented in this encounter Results SURGICAL PATHOLOGY (07/22/2016 16:39 EST) Pathology Report: SURGICAL PATHOLOGY REPORT [facility] Reports generated via electronic interface conta in original data; CENTER LABORATORY however they are lacking the format of the original re port. SERVICES Caution should be taken when reading/interpreting unfo rmatted reports. Name: ? SAUNDRA DHALIWAL ? Accession #: ? [id number] ? : ? 1950 (Age: 66) ??F ? Collect Date: ? 07/22/2016 ? Location: ? [facility] ? Receive Date: ? Provider: JAYME PURCELL MD Copy to: FITZ JENKINS MD ? Final Pathologic Diagnosis: A. STOMACH, POLYPS, BIOPSY: - ??Fundic gland polyps with reactive/ erosive feature s. - ??No evidence of Helicobacter pylori on H&E. - ??Focal, mild ECL cell hyperplasia, negative for tawanna roendocrine tumor. ?? B. GASTROESOPHAGEAL JUNCTION, BIOPSY: - ??Oxyntic mucosa with reactive feature s, negative for intestinal metaplasia, dysplasia or tumor. ?? - ??No evidence of Helicobacter pylori on H&E. Comment: Supervisor Plate Forming deeper sections examined. ANTIBODY(CLONE)(BLOCK):RESULT SYNAPTOPHYSIN (SP11, [employer]) exanthem (A2, A3): Focal, mild ECL cells hyperplasia, negative for neuroendocrine tumor NOTE: ??One or more of the reagents used in imm unoperoxidase testing in this case may not have been cleared or approved by the U.S. Food and Drug Administration (FDA). ??The FDA has determined that such clearance or approval is not necessary. ??These tests are used for clinical purposes. ??They should not be regarded as investigational or for research. ??These r eagents' performance characteristics have been determined by [facility]. ??The positive and negative controls worked ap propriately. If immunoperoxidase staining has been performed on alcoho l fixed cytology specimens, which has not bee n fully validated, the assays should be interpreted with caution and correlated with clinica l data. ??This laboratory is certified under the Clinical Laboratory Improvement Amendments o f 1988 (CLIA-88) as qualified to perform high complexity clinical laborato ry testing. Dr. Salas 07/29/2016 1:46 PM Document reviewed and electronically signed by: AMOS SALAS MD Report ??Date: 07/29/2016 14:10 By the signature above, the attending physician certif ies that he/she has personally conducted a gross and/or microscopic examin ation of the described specimens and rendered or confirmed the above diagnosi s. Specimen(s) Received: A. ??Gastric polyps B. 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 ?Received in formalin labelled with proper p atient identification (initials H, L) and gastric polyps are twelve irregu lar multilobulated grossman tissues ranging from 0.2 x 0.2 x 0.1 cm to 0.7 x 0.5 x 0.3 cm. Entirely submitted in A1-A4. B. ?Received in formalin labelled with proper p atient identification (initials H, L) and bx GE j unction is a nodular grossman-brown tissue (0.2 x 0.2 x 0.2 cm). Entirely submitted in B1. ANAT Nieto (ASCP) 07/22/2016 4:56 PM End of Report Specimen Performing Organization Address City/State/ZIP Code Phon e Number [facility] [address] [place] [id number] SERVICES documented in this encounter Visit Diagnoses Not on filedocumented in this encounter Care Teams Gaming Host Relationship Specialty Start Date End Date Fitz Jenkins MD PCP - General 03/06/16 08/20/17 [address] [place] [address] Fitz Jenkins MD 02/08/[address] [place] [address] documented as of this encounter
--- OUTSIDE RECORDS SUMMARY | 2021-12-21 00:40 | XMS_ITS | Encounter Summary ---
:1950 Author Organization [facility] Address [address] [place] [address] Care Team Providers Name Role Phone Fitz Jenkins MD Unavailable Fitz Jenkins MD Primary Care Provider Encounter Details Date Type Department Care Team Description 02/11/[address] [facility]- PR[facility] Xavier Shen MD [phone] [place] [address] Social History Tobacco Use Types Packs/Day Years [...] Diagnosis Comme nts PAP TEST- RESULT Routine 02/11/2017 0:00 EDT Resu lts for this ONLY procedure are i n the results section. documented in this encounter Results PAP TEST- RESULT ONLY (02/11/2017 0:00 EDT) Pathology Report: CYTOPATHOLOGY REPORT [facility] Reports generated via electronic interface contain jennifer ginal data; SERVICES however they are lacking the format of the original re port. Caution should be taken when reading/interpreting unfo rmatted reports. Name: ? SAUNDRA DHALIWAL ? Accession #: ? [id number] ? : ? 1950 (Age: 66) ??F ?Collect Date: ? 02/11/2017 ? Location: ? [facility] ? Receive Date: ? 02/13/20 17 ? Provider: XAVIER SHEN MD Copy to: FITZ JENKINS MD ? Final Report SPECIMEN ADEQUACY ? Satisfactory for Evaluation - transformation zone component present GENERAL CATEGORIZATION ? Negative for Intraepithelial Lesion or Malignan cy INTERPRETATION ? Reactive cellular omkar nges associated with inflammation present (includes repair). Previous Gynecologic Pathology: HPV: HR 2016 nilm Treatment History: Colposcopy: negative Specimen/Source: ??Pap Test, Cervix, ThinPrep Imaging System with manual evaluation Document reviewed and electronically signed by: ? DIMITRIOS HER MD ? Report ??Date: 02/26/2017 16:24 HPV with Pap Test ? Date Ordered: ? 02/26/2017 ? Status: ?? Signed Out ?Date Complete: ? 02/27/2017 ? By: ??S ystem Interface ? Date Reported: ? 02/27/2017 ? Interpretation RESULT: Negative for HPV. No E6 or E7 mRNA is detected from HPV types 16,18,31,3 3,35, 39,45,51,52,56,58,59,66, and 68 by petrology teacher media jerald amplification. Comments Document reviewed and electronically signed by: ? System Interface ? Report date: 02/27/2017 By the signature above, the attending physician certif ies that he/she has personally conducted a gross and/or microscopic examin ation of the described specimens and rendered or confirmed the above diagnosi s. End of Report Specimen Performing Organization Address City/State/ZIP Code Phon e Number [facility] [address] [place] [address] SERVICES documented in this encounter Visit Diagnoses Not on filedocumented in this encounter Care Teams Correctional Medicine Physician Relationship Specialty Start Date End Date Fitz Jenkins MD PCP - General 03/06/16 08/20/[address] [place] [address] Fitz Jenkins MD 02/08/[address] [place] [address] documented as of this encounter
--- OUTSIDE RECORDS SUMMARY | 2021-12-21 00:40 | XMS_ITS | Clinical Summary ---
:1950 Author Organization [facility] Address [address] [place] [address] Care Team Providers Name Role Phone Fitz Jenkins MD Unavailable Ingrid Espinosa SKIN WASHER Primary Care Provider Allergies Active Allergy Reactions Severity Noted Date Comments Adhesive Tape-Silicones Rash 12/20/2011 Codeine Other (See Comments) 12/20/2011 Juan M Rodriguez (Sulfonamide Rash 12/20/2011 Antibiotics) Hydrocodone-Acetaminophen Mental Status Changes 2011 Medications Medication Sig Dispensed Refills Start Date End Date Status Nystatin, Bulk, 100 % by 0 Active Powd Misc.(Non-Drug; Combo Route) route as needed. duloxetine (CYMBALTA) Take 30 mg by 0 Active 30 mg capsule mouth daily. levothyroxine Take 25 mcg by 0 A ctive (SYNTHROID) 25 mcg mouth daily. tablet pantoprazole (PROTONIX) Take 40 mg by 0 Active 40 mg tablet mouth daily. valsartan (DIOVAN) 160 Take 160 mg by 0 Active mg tablet mouth daily. gabapentin (NEURONTIN) Take 300 mg by 0 Active 100 mg capsule mouth daily. acetaminophen (TYLENOL) Take 1,000 mg by 0 Active 500 mg tablet mouth 2 times daily. simvastatin (ZOCOR) 20 Take 20 mg by 0 Active mg tablet mouth daily. FA/MV,CA,IRON,MIN/LYCOP Take 1 Tab by 0 Active SASHA/LUT (MULTIVITAL mouth daily. ORAL) CALCIUM CARBONATE Take 500 mg by 0 Active (CALCIUM 500 ORAL) mouth daily. LOPERAMIDE HCL (IMODIUM Take 1 Tab by 0 Active A-D ORAL) mouth as needed. UNABLE TO FIND daily. Med Name: 0 Active Auto c-pap UNABLE TO FIND as needed. Med 0 Active Name: Tens Machine PRN Active Problems Problem Noted Date Primary hypercoagulable state ([facility]) 12/20/2011 Overview: A. Provoked LLE DVT post- after 1 month bedrest and , 1986. Treated for 3 months. B. R popliteal and posterior tibial DVT 2006. i. Repeat U/S OSH 2006 normal. 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 D. Thrombosis panel off warfarin 2011 no ndiagnostic. D-dimer <200. Hyperlipidemia Obesity, Class II, BMI 35-39.9, with comorbidity Fibromyalgia Chronic lumbar radiculopathy Hypertensive disorder Arthritis Surgical History Surgery Date Site/Laterality Comments SECTION 1986 post DVT CHOLECYSTECTOMY 2006 BUNIONECTOMY 2004 LUMBAR DISC SURGERY 1976 DILATION AND CURETTAGE OF UTERUS 2003 CATARACT REMOVAL 2007 ABDOMEN SURGERY 2006 gastric carcinoi d Medical History Medical History Date Comments Thyroid disease 2006 hypothroid Lumbar radiculopathy, chronic Obesity Fibromyalgia Sleep apnea 2000 Depression Deep vein thrombosis ([facility]) ([facility]) 2005 Hyperlipidemia Hypertension Arthritis DJD (degenerative joint disease) of thoracic spine Family History Medical History Relation Name Comments Suicide Brother Heart Disease Father Lung Disease Father Arrhythmia Mother Fibromyalgia Mother Osteoporosis Mother Varicose Veins Mother Relation Name Status Comments Brother Father Mother Social History Tobacco Use Types Packs/Day Years [...] Sign Reading Time Taken Comments Blood Pressure 132/70 01/13/2012 1638 EDT Pulse 71 01/13/2012 1638 EDT Temperature 35.7 ??C (96.3 ??F) 01/13/2012 1638 EDT Respiratory Rate 16 01/13/2012 1638 EDT Oxygen Saturation - - Inhaled Oxygen Concentration - - Weight 110.6 kg (243 lb 12.8 oz) 01/13/2012 1638 EDT Height 175.5 cm (5' 9.09) 01/13/2012 1638 EDT Body Mass Index 35.91 01/13/2012 1638 EDT Plan of Treatment Health Maintenance Due Date Last Done Comments Fall Risk Screening 2014 Advance Directives For more information, please contact: [phone] Documents on File Type Date Recorded Patient Tool Storage Attendant Explanati on Advance Directives and Living Will Power of Plaster Die Maker Care Teams Stone Cutter Relationship Specialty Start Date End Date Ingrid Espinosa, SKIN WASHER PCP - General 08/21/17 Fitz Jenkins MD 02/08/16 [address] [facility] [place] [place] [address]
--- OUTSIDE RECORDS SUMMARY | 2021-12-21 00:40 | XMS_ITS | Encounter Summary ---
:1950 Author Organization [facility] Address [address] [place] [address] Care Team Providers Name Role Phone Unknown, Provider Primary Care Provider Fitz Jenkins MD Unavailable Encounter Details Date Type Department Care Team Description 03/01/2016 Results Only [facility]- PR[facility] Xaiver Shen MD [phone] [place] [address] Social History Tobacco Use Types Packs/Day Years [...] Procedure Name Priority Date/Time Associated Diagnosis Comme [facility] SURGICAL PATHOLOGY Routine 03/01/2016 13:48 Resul ts for this EDT procedure are i n the results section. documented in this encounter Results SURGICAL PATHOLOGY (03/01/2016 13:48 EDT) Pathology Report: SURGICAL PATHOLOGY REPORT [facility] Reports generated via electronic interface contain jennifer ginal data; LABORATORY however they are lacking the format of the original re port. SERVICES Caution should be taken when reading/interpreting unfo rmatted reports. Name: ? SAUNDRA DHALIWAL ? Accession #: ? [id number] ? : ? 1950 (Age: 65) ??F ? Collect Date: ? 03/01/2016 ? Location: ? [facility] ? Receive Date: ? 016 ? Provider: XAVIER SHEN MD Copy to: FITZ JENKINS MD ? Final Pathologic Diagnosis: CERVIX, 4 O'CLOCK, BIOPSY: - Squamous mucosa with atrophic changes. Document reviewed and electronically signed by: LIS FELDMAN MD Report ??Date: 03/06/2016 15:28 By the signature above, the attending physician certif ies that he/she has personally conducted a gross and/or microscopic examin ation of the described specimens and rendered or confirmed the above diagnosi s. 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 Received in formalin labelled with proper patient identification (initials H, L) and 4 o'clock ectocervical bx is a single puru lent grossman-white pearly tissue (0.3 x 0.3 x 0.2 cm). The specimen is submitted entirely in 1. ANAT Roy (ASCP) 03/04/2016 2:52 PM End of Report Specimen Performing Organization Address City/State/ZIP Code Phon e Number [facility] [address] [place] [address] SERVICES documented in this encounter Visit Diagnoses Not on filedocumented in this encounter Care Teams Psychiatric Assistant Relationship Specialty Start Date End Date Unknown, Provider, PCP - General 02/08/16 03/05/16 Fitz Jenkins MD 02/08/[address] [place] [address] documented as of this encounter
--- OUTSIDE RECORDS SUMMARY | 2021-12-21 00:40 | XMS_ITS | Encounter Summary ---
:1950 Author Organization [facility] Address [address] [place] [address] Care Team Providers Name Role Phone Fitz Jenkins MD Unavailable Ingrid Espinosa SUPERVISOR PRODUCTION Primary Care Provider Encounter Details Date Type Department Care Team Description 11/21/2020 Lab Requisition [facility] Outr Resulting Lab, Pathology & Laboratory Provider [facility] [address] [place], [place] [id number] Social History Tobacco Use Types Packs/Day Years [...] Name Priority Date/Time Associated Diagnosis Comme nts LYME AB Routine 11/21/2020 12:48 EDT Results for this procedure are i n the results section . documented in this encounter Results LYME AB (11/21/2020 12:48 EDT) Pathologist Sig nature Lyme Ab NegativeComment: New Negative [facility] 3rd generation assay LABORATORY SERVICES in use 10/27/2019 Specimen Blood - Venous blood (substance) Performing Organization Address City/State/ZIP Code Phon e Number [facility] [address] [place] [address] SERVICES documented in this encounter Visit Diagnoses Not on filedocumented in this encounter Care Teams Integrated Circuit Layout Designer Relationship Specialty Start Date End Date Ingrid Espinosa NP PCP - General 08/21/17 Fitz Jenkins MD 02/08/16 [address] [place] [address] documented as of this encounter
--- OUTSIDE RECORDS SUMMARY | 2021-12-21 00:40 | XMS_ITS | Encounter Summary ---
:1950 Author Organization [facility] Address [address] [place] [address] Care Team Providers Name Role Phone Rio Jenkins MD Primary Care Provider Encounter Details Date Type Department Care Team Description 06/17/2012 Results Only [facility] Hao Scruggs MD Laboratory Services - [address] [place] [address] [address] [facility] [place] [address] [phone] Social History Tobacco Use Types Packs/Day Years [...] Associated Diagnosis Comme nts SURGICAL PATHOLOGY Routine 06/17/2012 8:47 EST Re sults for this procedure are i n the results section. documented in this encounter Results SURGICAL PATHOLOGY (06/17/2012 8:47 EST) Pathology Report: SURGICAL PATHOLOGY REPORT BARBARA MATTA Reports generated via electronic interface contain jennifer ginal data; LAB however they are lacking the format of the original re port. Caution should be taken when reading/interpreting unfo rmatted reports. Name: ? SAUNDRA DHALIWAL ? Accession #: ? [id number] ? : ? 1950 (Age: 62) ??F ? Collect Date: ? 06/17/2012 ? Location: ? [facility] ? Receive Date: ? 013 ? Provider: HAO SCRUGGS MD Copy to: RIO JENKINS MD ? Final Pathologic Diagnosis: A. ?Stomach, previous carcinoid excision site, biopsies: 1. ?Oxyntic muc rupal with focal mild cystic changes of the oxyntic gland, raising the possibility of a fundic gland polyp. ??See comment. 2. ? No evidence of carcinoid. 3. ? No active gastritis , goblet cells, intestinal metaplasia, Helicobacter pylori-like microorganisms, or dysplasia. 4. ? Tissue tattooing is identified. B. ?Stomach, fundic gland polyps, biops ies: 1. ?Fundic gland polyp (two pieces). ?? 2. ? Antral mucosa (one piece) with features suggestive of hyperplastic polyp. 3. ? No evidence of carcinoid. 4. ? No active gastritis , goblet cells, intestinal metaplasia, Helicobacter pylori-like microorganisms, or dysplasia. C. ?Esophagus, lower, 35 cm, biopsy: 1. ?Squamocolumnar junctional mucosa with : ? - Mild chronic inflammation. - Reactive epithelial changes. ?2. ?? No defi nitive goblet cells, intestinal metaplasia, Helicobacter pylori-like microorganisms, ? or dysplasia. ?? 3. ?? No intraepithelial eosinophils or neutrophils. ? ? Comment: ? This case has been reviewed at the intradepartm ental consultation conference. ??(Dr. Michelle)/nicolen Document reviewed and electronically signed by: Anupama Michelle MD Report ??Date: 06/19/2012 15:41 By the signature above, the attending physician certif ies that he/she has personally conducted a gross and/or microscopic examin ation of the described specimens and rendered or confirmed the above diagnosi s. Specimen(s) Received: A. ?Bx gastric carcinoid excision site B. ? Fundic gland polyps C. ? Bx lower esophagus 35 cm ? Clinical History: ? H/O gastric carcinoid, s/p resection Gross Description: ? Received in formalin labelled Lugo ramírez Saundra and bx gastric carcinoid excision site are four light grossman biopsi es which vary in size from 0.2 x 0.2 x 0.2 cm up to 0.7 x 0.2 x 0.2 cm. ??The specimens are submitted intact as (A1) and (A2). Received in formalin shreyas oxana DhaliwalSaundra and fundic gland polyps are four light grossman biopsies which mara y in size from 0.3 x 0.2 x 0.2 cm up to 0.4 x 0.4 x 0.2 cm. ??The specimens are submitted intact as (B1) a nd (B2). Received in formalin shreyas oxana CastellanoSaundra nunez and bx lower esophagus 35 cm is a 0.2 x 0.2 x 0.2 cm light grossman biopsy. ??The specimen is submitted intact as (C1). (Sekou Crowell)/mpl End of Report Specimen Performing Organization Address City/State/ZIP Code Phon e Number [facility] [address] [place] [address] SERVICES [facility] [address] [place] [address] documented in this encounter Visit Diagnoses Not on filedocumented in this encounter Care Teams Lining Stamper Relationship Specialty Start Date End Date Rio Jenkins MD PCP - General 06/01/10 02/07/[address] [place] [address] documented as of this encounter
--- OUTSIDE RECORDS SUMMARY | 2021-12-21 00:40 | XMS_ITS | Encounter Summary ---
:1950 Author Organization [facility] Address [address] [place] [address] Care Team Providers Name Role Phone Fitz Jenkins MD Unavailable Fitz Jenkins MD Primary Care Provider Encounter Details Date Type Department Care Team Description 08/19/2017 Hospital Encounter [facility] Unknown, Provider, [facility] [address] [facility] [phone] [place] [address] (Work) [phone] Social History Tobacco Use Types Packs/Day Years [...] needed. Nystatin, Bulk, 100 % Powd by [facility].(Non-Drug; 0 Combo Route) route as needed. pantoprazole [...] Code Departure Means Destination Home or Self [facility] documented in this encounter Plan of Treatment Not on filedocumented as of this encounter Visit Diagnoses Not on filedocumented in this encounter Care Teams Customer Care Team Coach Relationship Specialty Start Date End Date Fitz Jenkins MD PCP - General 03/06/16 08/20/[address] [address] Fitz Jenkins MD 02/08/[address] [address] documented as of this encounter
--- OUTSIDE RECORDS SUMMARY | 2021-12-21 00:40 | XMS_ITS | Encounter Summary ---
:1950 Author Organization [facility] Address [address] [place] [address] Care Team Providers Name Role Phone Fitz Jenkins MD Primary Care Provider Reason for Visit Reason Comments Follow-up Encounter Details Date Type Department Care Team Description 01/13/2012 Office Visit [facility] Lizeth Mccullough MD [address] [phone] Primary hypercoagulable Hematology & Suri Roca NP [address] [phone] [place] [place] - [facility] (Primary Dx) [place] [address] [place] [address] [phone] Social History Tobacco Use Types Packs/Day Years [...] Body Mass Index 35.91 01/13/2012 1638 EDT documented in this encounter Patient Instructions Patient InstructionsSuri Roca NP - 01/13/2012 16:54 EDT When to watch for thrombosis High risk settings include surgery, trauma, hospital stay or immobility. In these situations, ask usor your provider to provide preventive anticoagulation, which is usually given in low doses. documented in this encounter Discharge Disposition Disposition Code Departure Means Destination Auto Discharge documented in this encounter Progress Notes Suri Roca NP - 01/13/2012 1705 EDT Thrombosis & Hemostasis Program (THP) Follow Up Visit Date of Service: 01/13/2012 Reason for Visit: follow-up to review thrombophilia panel Problem List: Patient Active Problem List Diagnoses ??? Primary hypercoagulable state A. Provoked LLE DVT post- after 1 month bedrest and , 1986. Treated for 3 months. B. R popliteal and posterior tibial DVT 2005. i. Repeat U/S OSH 2006 normal. C. terminal operator anticoagulation since 2005. D. Thrombosis panel off warfarin 2011 nondiagnostic. D-dimer <200. ??? Hyperlipidemia ??? Obesity, Class II, BMI 35-39.9, with comorbidity ??? Fibromyalgia ??? Lumbar radiculopathy, chronic ??? Hypertension ??? Arthritis HPI: Ms Saundra Blanton is a pleasant 61-year-old female who returns today for results of her thrombophilia panel and discussion of need for ongoing anticoagulation. She has a history of provoked DVT in 1986, and an unprovoked, partially occlusive DVT in 2005 after which she was placed on assisted antico agulation with warfarin. 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 At today's visit, she reports ongoing pain and numbness/tingling in her right leg. She has lost a total of 22 pounds on weight watchers. She denies current shortness of breath, chest pain, left leg pain, fevers, chills or night sweats. ROS: Symptom report form reviewed with the patient and can be referred to in the chart. Pertinent positives and negatives listed above in the history of present illness. The rest of the systems are negative. Social History: Patient does not have a smoking history on file. She does not have any smokeless tobacco history on file. Medications: Medication Sig ??? Nystatin, Bulk, 100 % [place] [facility]Non-Drug; Combo Route) route as needed. ??? duloxetine (CYMBALTA) 30 mg capsule Take 30 mg by mouth daily. ??? warfarin (COUMADIN) 5 mg tablet Take 5 mg by mouth daily. ??? levothyroxine (SYNTHROID) 25 mcg tablet Take 25 mcg by mouth daily. ??? pantoprazole (PROTONIX) 40 mg tablet Take 40 mg by mouth daily. ??? valsartan (DIOVAN) 160 mg tablet Take 160 mg by mouth daily. ??? gabapentin (NEURONTIN) 100 mg capsule Take 300 mg by mouth daily. ??? acetaminophen (TYLENOL) 500 mg tablet Take 1,000 mg by mouth 2 times daily. ??? simvastatin (ZOCOR) 20 mg tablet Take 20 mg by mouth daily. ??? FA/MV,CA,IRON,MIN/LYCOPENE/LUT (MULTIVITAL ORAL) Take 1 Tab by mouth daily. ??? CALCIUM CARBONATE (CALCIUM 500 ORAL) Take 500 mg by mouth daily. ??? LOPERAMIDE HCL (IMODIUM A-D ORAL) Take 1 Tab by mouth as needed. ??? UNABLE TO FIND daily. Med Name: Auto c-pap ??? UNABLE TO FIND as needed. Med Name: Tens Machine PRN Allergies: Patient is allergic to adhesive tape-silicones; codeine; sulfa(sulfonamide antibiotics); and vicodin. Physical Exam: Filed Vitals: 01/13/12 1638 BP: 132/70 Pulse: 71 Temp: 35.7 ??C (96.3 ??F) TempSrc: Tympanic Resp: 16 Height: 175.5 cm (69.09) Weight: 110.587 kg (243 lb 12.8 oz) Estimated Body mass index is 35.91 kg/(m^2) as calculated from the following: Height as of this encounter: 5' 9.094(1.755 m). Weight as of this encounter: 243 lb 12.8 oz(110.587 kg). General: Obese female;Alert and cooperative and in no acute distress. Extremities: Mild bilateral lower extremity edema. Scattered varices concentrated over the medial malleolus and extending around the ankle; feet warm; calves supple bilaterally without visible varicosities or palpable cords. Non-tender. Labs: Thrombosis Panel Lab Results Component Value Date PROTIME 10.4 12/20/2011 INR 0.9 12/20/2011 PTT 31 12/20/2011 DDIMER <200 12/20/2011 ANTITHROM 118 12/20/2011 VXMOBRTLBR4G negative 12/20/2011 FACTVIIIFA8 113 12/20/2011 PROTCCLOT >150 12/20/2011 PROTSCLOT 112 12/20/2011 CARDIOLIGGC 5.00 12/20/2011 CARDIOLIGMC 1.81 12/20/2011 DRVVT 34.6 12/20/2011 PROTHRPROGMU negative 12/20/2011 Lab Results Component Value Date WBC 4.83 12/20/2011 HGB 14.5 12/20/2011 HCT 41.4 12/20/2011 MCV 91 12/20/2011 PLT 191 12/20/2011 Imaging: VL 01/09/2012 B/L Doppler Ultrasound: RIGHT: Normal right lower extremity venous duplex exam. All segments visualized were compressible with phasic and spontaneous flow. LEFT: Partial compressibility, Non-dilation, Recanalization noted in the following vein(s): Femoral, Popliteal, chronic in appearance. Reflux noted in the following vein(s): Common femoral, Femoral, Popliteal. All other segments visualized were patent and compressible. OSH 05/08/07 RLE ultrasound: no evidence of DVT. Small popliteal cyst. OSH 04/04/06 RLE ultrasound: partially occlusive right posterior tibial vein thrombosis extending into the popliteal vein. Appear to be collaterals that have developed around the knee. OSH 09/20/86 LLE venogram: diffuse thrombosis involving the deep venous structures of the left calf and thigh. Assessment: A 61-year-old female with history of proximal deep vein thrombosis following one month of bed rest and section in 1986. She had a second unprovoked DVT in her left popliteal vein in 2005. The patient has a past medical history of arthritis, sleep apnea, hypertension, obesity, lumbar radiculopathy, hyperlipidemia and fibromyalgia . She has no family history of DVT, PE, stroke or recurrent miscarriage and has had multiple surgeries without postoperative clotting complications including a significant bunion repair in 2004, which required approximately 3 months of relative immobility. She has been managed on warfarin since her second DVT in 2005; however, stopped at theend of October in preparation for thrombophilia testing which she had done on earlier this month. Testing was negative for an underlying inherited or acquired disorder of coagulation. Her post-treatment D-dimer was also negative which predicts a lower risk of recurrent DVT. Repeat ultrasound this morningshowed evidence of chronic clot in her left femoral and popliteal veins. Ms Blanton's primary risk factor for recurrence is her weight which she is actively working on through pool therapy and weight watchers. terminal operator anticoagulation is not warranted at this time but aggressive thromboprophylaxis will be necessary in the setting of surgery, trauma, or prolonged immobilizat ion. Should she develop a second, unprovoked DVT or PE, we would recommend resuming chronic warfarintherapy. Plan: --discontinue warfarin --Counseled on healthy lifestyle. Congratulated on weight loss! --Counseled on concerning signs/symptoms of VTE and instructed to seek medical evaluation immediately if they occur --Recommend aggressive thromboprophylaxis during periods of high-risk such as illness, surgery, or immobilization. We are available to help guide this. -Follow-up as needed. Please contact my office with questions/concerns. *I spent a total of 25 minutes in face to face time with this patient today and >15 minutes was spent in direct patient education and counseling. RUSTY Larson Thrombosis and Hemostasis Program CC: MD Lizeth LAWSON MD documented in this encounter Plan of Treatment Not on filedocumented as of this encounter Visit Diagnoses Diagnosis Primary hypercoagulable state (HCC-CMS) (HCC) - Primary Primary hypercoagulable state documented in this encounter Discontinued Medications Medication Sig Discontinue Reason Start Date End Date warfarin (COUMADIN) 5 mg Take 5 mg by mouth Therapy completed 01/14/2012 tablet daily. documented as of this encounter Care Teams Jig And Fixture Maker Relationship Specialty Start Date End Date Fitz Jenkins MD PCP - General 06/01/10 02/07/[address] [place] [address] documented as of this encounter
--- OUTSIDE RECORDS SUMMARY | 2021-12-21 00:40 | XMS_ITS | Encounter Summary ---
:1950 Author Organization [facility] Address [address] [place] [address] Care Team Providers Name Role Phone Fitz Jenkins MD Primary Care Provider Reason for Visit Reason Onset Date Comments Appointment Related 01/03/2012 Encounter Details Date Type Department Care Team Description 01/03/2012 Telephone [facility] Lizeth Mccullough MD Appointment Related Hematology & Oncology [address] [facility] [address] [facility] [place] [address] [place], [place] [phone] (Wo rk) Social History Tobacco Use Types Packs/Day Years Used Date Never Assessed Sex Assigned at Date Recorded Not on file documented as of this encounter Miscellaneous Notes Telephone Encounter - Alix Desai RN - 01/03/2012 3635 EDT Returned call, advised that materials assistant will call her with US time. elephone Encounter - Lizeth Isaac V. - 01/03/2012 [address] Mccullough on 01.12. Pt thinks that she is supposed to have an ultrasound on her legs (per Suri Roca) but nothing scheduled. Please call patient to advise documented in this encounter Plan of Treatment Not on filedocumented as of this encounter Visit Diagnoses Not on filedocumented in this encounter Care Teams Blueprinting And Photocopy Supervisor Relationship Specialty Start Date End Date Fitz Jenkins MD PCP - General 06/01/10 02/07/[address] [place] [address] documented as of this encounter
--- OUTSIDE RECORDS SUMMARY | 2021-12-21 00:40 | XMS_ITS | Encounter Summary ---
:1950 Author Organization [facility] Address [address] [place] [address] Care Team Providers Name Role Phone Fitz Jenkins MD Primary Care Provider Encounter Details Date Type Department Care Team Description 12/20/2011 Phlebotomy Only [facility] deep vein thrombosis [address] [place] [address] Social History Tobacco Use Types Packs/Day Years Used Date Never Assessed Sex Assigned at Date Recorded Not on file documented as of this encounter Plan of Treatment Not on filedocumented as of this encounter Procedures Procedure Name Priority Date/Time Associated Comments Diagnosis THROMBOSIS PANEL Routine 12/20/2011 12:38 History of maternal Results for this PATIENT NOT ON EDT deep vein procedure are in COUMADIN thrombosis the results section. COMPLETE BLOOD COUNT Routine 12/20/2011 12:38 History of mater nal Results for this EDT deep vein procedure are i n thrombosis the results section. COMPREHENSIVE Routine 12/20/2011 12:38 History of maternal Res ults for this METABOLIC PANEL (CMP) EDT deep vein proced ure are in thrombosis the results section. documented in this encounter Results COMPREHENSIVE METABOLIC PANEL (CMP) (12/20/2011 12:38 EDT) Pathologist [facility] nature Potassium 4.0 3.5 - 5.0 mEq/L [facility] Sodium 144 136 - 145 mEq/L [facility] Chloride 105 96 - 110 mEq/L [facility] CO2 28 24 - 32 mEq/L [facility] Total Alkaline 79 38 - 126 U/L [facility] Phosphatase Bilirubin, Total 0.6 0.2 - 1.3 mg/dl [facility] AST 29 15 - 46 U/L [facility] ALT 25 9 - 52 U/L [facility] Albumin 4.3 3.4 - 4.9 g/dl [facility] Total Protein 6.8 6.5 - 8.3 g/dl [facility] Creatinine 0.65 0.52 - 1.04 [facility] mg/dl GFR, Calculated >60 >60 [facility] ml/min/1.73m2 BUN 13 10 - 26 mg/dl [facility] Calcium 9.8 8.5 - 10.5 [facility] mg/dl Calculated Calcium 9.9 8.5 - 10.5 [facility] mg/dl Glucose, Serum 100 70 - 100 mg/dl [facility] Fasting? Unknown [facility] Specimen Blood specimen (specimen) Performing Organization Address City/[facility] Phon e Number [facility] [address] [place] [address] SERVICES [facility] [address] [place] [address] HEMAGRAM (12/20/2011 12:38 EDT) Pathologist Sig nature WBC 4.83 4.0 - 12.4 K/cmm [facility] RBC 4.56 3.86 - 5.04 M/cmm [facility] Hemoglobin 14.5 11.6 - 15.2 gm/dl [facility] HCT 41.4 34.9 - 44.4 % [facility] MCV 91 81 - 98 fl [facility] MCH 31.8 26.7 - 33.3 pg [facility] MCHC 35.0 32.1 - 35.9 gm/dl [facility] PLT 191 141 - 320 K/cmm [facility] RDW-CV 13.9 11.7 - 14.6 % [facility] Specimen Blood specimen (specimen) Performing Organization Address City/[facility] Phon e Number [facility] [address] [place] [address] SERVICES [facility] [address] [place] [address] THROMBOSIS PANEL PATIENT NOT ON COUMADIN (12/20/2011 12:38 EDT) Pro Time 10.4 9.5 - 13.1 [facility] secs LAB I.N.R. 0.9 0.9 - 1.1 [facility] Comment: Ratio LAB Moderate Intensity Coumadin INR = 2.0-3.0 Adjustments in anticoagulant therapy dose should be based upon the INR and NOT the Pro Time. D-Dimer <200Comment: CUTOFF <230 ng/mL [facility] VALUE FOR THE LAB EXCLUSION OF DVT and PE: 230 ng/mL D-dimer units PTT 31Comment: Therapeutic 26 - 37 secs [facility] Heparin range: 65-100 LAB seconds Factor 8 Assay 113 53 - 143 % [facility] Antithrombin, 118 85 - 125 % [facility] Funct. Comment: LAB CAUTION: Antithrombin III levels can be INCREASED by coumadin and DECREASED by heparin. Results must be interpreted with caution for patients on these drugs. Results may be overestimated in the presence of direct thrombin inhibitors such as Hirudin (Refludan) and Argatroban (Novastan). Acute illness and/or thrombosis may infl uence test results in an unpredictable manner, therefore results should be int erpreted with caution in this setting. Dilute Viper Venom 34.6 29.2 - 41.2 [facility] Comment: secs LAB Results must be interpreted with caution if the patien t is on oral anticoagulant, direct thrombin inhibitors or heparin. Factor V Leiden (Note) [facility] Comment: LAB RESULT: The Factor V Leiden mutation was not detected. METHOD: The Factor V Leiden mutation (R506Q, HGVS designation: F5 [id number] G>A [id number]) ??is detected by amplification of DNA isol ated from blood following by melt curve analysis INTERPRETATION: The Factor V Leiden mutation is not present. ?? A gene tic cause of deep-vein thrombosis can not be excluded since there a re many other disease causing mutations. As of May 19, 1998, [place] Act 160 prohibits release of genetic test results to third parties without the specific informed consent of the patient. TEST PERFORMED BY: [facility] [address], [address] [place] [address] These results need to be interpreted in the context of the clinical presentation and the results of other laboratory tests . ??A consultation with a Gas Appliance Repairer or Thrombosis Special ist may be of benefit for this individual and/or family to further d iscuss the implications of these findings. The results reported h ere are only as accurate as the identity of the sample received. ?? This test is not an FDA- approved test, however it is based on the use of analyte-specific reagents that do not require F DA approval. ?? This test was developed and its performance characteri stics determined by [facility]. ?? This laboratory is certified under the Clinical Laboratory Improvement Amendments of 1988 (CLIA) as qualified to perform high complexity cl inical laboratory testing. ??A [place] statute prevents our l aboratory from releasing these results to anyone other than the emilyo n who has been tested and the referring clinician without the prior w ritten consent of the person tested. Lizeth ??Elzbieta Harris MD Clinical Director Diagnosis Code: ??V12.51 Prothrombin (Note) [facility] Mutation Comment: LAB RESULT: The Prothrombin [id number]>A mutation was not detected. METHOD: The Prothrombin F37162H mutation (HGVS designation: F2 [id number]) is detected by amplification of DNA isolate d from blood following by melt curve analysis INTERPRETATION: The Prothrombin [id number] mutation is not present. ?? A genetic cause of deep-vein thrombosis can not be excluded since there a re many other disease causing mutations. As of May 19, 1998, [place] Act 160 prohibits release of genetic test results to third parties without the specific informed consent of the patient. TEST PERFORMED BY: [facility] [address], [address] [place] [address] These results need to be interpreted in the context of the clinical presentation and the results of other laboratory tests . ??A consultation with a Gas Appliance Repairer or Thrombosis Special ist may be of benefit for this individual and/or family to further d iscuss the implications of these findings. The results reported h ere are only as accurate as the identity of the sample received. ?? This test is not an FDA- approved test, however it is based on the use of analyte-specific reagents that do not require F DA approval. ?? This test was developed and its performance characteri stics determined by [facility]. ?? This laboratory is certified under the Clinical Laboratory Improvement Amendments of 1988 (CLIA) as qualified to perform high complexity cl inical laboratory testing. ??A [place] statute prevents our l aboratory from releasing these results to anyone other than the bert leija who has been tested and the referring clinician without the prior w ritten consent of the person tested. Lizeth ??Elzbieta Harris MD Clinical Director Diagnosis Code: ??V12.51 Cardiolipin IgG 5.00 GPL [facility] Comment: LAB IgG Negative <15 GPL Indeterminate 15 - <20 GPL Low to Medium Positive 20 - 80 GPL Strongly Positive >80 GPL The following results were obtained with the INOVA QUANTA Lite SADE IgG and IgM III Kimberli kits. Cardiolipin IgG & IgM values obtained with different m anufacturer's assay methods may not be used interchangeably. The magnitude of the reported IgG & IgM levels cannot be correlated to an endpoint titer. Cardiolipin IgM 1.81 MPL [facility] Comment: LAB IgM Negative <12.5 MPL Indeterminate 12.5 - <20 MPL Low to Medium Positive 20 - 80 MPL Strongly Positive >80 MPL The following results were obtained with the INOVA QUANTA Lite SADE IgG and IgM III Kimberli kits. Cardiolipin IgG & IgM values obtained with different m anufacturer's assay methods may not be used interchangeably. The magnitude of the reported IgG & IgM levels cannot be correlated to an endpoint titer. Protein C Clot >150 71 - 199 % [facility] Comment: LAB a. ??Acquired Protein C deficiencies are associated wi th liver disease, oral anticoagulants, acute thrombotic events and DIC. b. ??Results may be affected by plasma heparin levels greater than 1.5 U/mL for UFH and 0.8 for LMWH. c. ??Results may be overesti mated in the presence of direct thrombin inhibitors such as Hirudin (Refludan) and Argatroban (Novastan). d. ??Acute illness and/or thrombosis may influence sophie t results in an unpredictable manner, therefore results should b e interpreted with caution in this setting. Protein S Activity 112 66 - 160 % [facility] Comment: LAB a. ??Acquired Protein S deficiencies are associa jerald with oral anticoagulants, acute thrombotic events, , vitamin K deficien cy, L-aspariginase treatment and inflammatory syndrome. Deficiencies may or may not be present with liver disease and DIC. b. ??Results may be affected by plasma h eparin levels greater than 1.6U/mL for UFH or greater than 1.8 U/mL for LMWH. c. ??Results may be overesti mated in the presence of direct thrombin inhibitors such as Hirudin (Refludan) and Argatroban (Novastan). d. ??Acute illness and/or thrombosis may influence sophie t results in an unpredictable manner, therefore results should b e interpreted with caution in this setting. e. ??Age and hormonal status may affect the normal ran ge for females. Specimen Performing Organization Address City/State/ZIP Code Phon e Number [facility] [address] [place] [address] SERVICES [facility] [address] [place] [address] documented in this encounter Visit Diagnoses Diagnosis History of maternal deep vein thrombosis Personal history of venous thrombosis an d embolism documented in this encounter Care Teams Polymer Materials Consultant Relationship Specialty Start Date End Date Fitz Jenkins MD PCP - General 06/01/10 02/07/16 [address] [place], [place] [id number] documented as of this encounter
--- OUTSIDE RECORDS SUMMARY | 2021-12-21 00:40 | XMS_ITS | Encounter Summary ---
:1950 Author Organization [facility] Address [address] [place] [address] Care Team Providers Name Role Phone Fitz Jenkins MD Primary Care Provider Unknown, Provider Primary Care Provider Fitz Jenkins MD Unavailable Encounter Details Date Type Department Care Team Description 02/07/2016 Results Only [facility] Xavier Shen MD [phone] [place] [address] Social History Tobacco Use Types Packs/Day Years Used Date Never Assessed Sex Assigned at Date Recorded Not on file documented as of this encounter Plan of Treatment Not on filedocumented as of this encounter Procedures Procedure Name Priority Date/Time Associated Diagnosis Comme nts PAP TEST- RESULT Routine 02/07/2016 0:00 EDT Resu lts for this ONLY procedure are i n the results section. documented in this encounter Results PAP TEST- RESULT ONLY (02/07/2016 0:00 EDT) Pathology Report: CYTOPATHOLOGY REPORT [facility] Reports generated via electronic interface contain jennifer ginal data; SERVICES however they are lacking the format of the original re port. Caution should be taken when reading/interpreting unfo rmatted reports. Name: ? SAUNDRA DHALIWAL ? Accession #: ? [id number] ? : ? 1950 (Age: 65) ??F ?Collect Date: ? 02/07/2016 ? Location: ? [facility] ? Receive Date: ? 02/08/20 16 ? Provider: XAVIER SHEN MD Copy to: FITZ JENKINS MD ? Final Report SPECIMEN ADEQUACY ? Satisfactory for Evaluation - transformation zone component present GENERAL CATEGORIZATION ? Negative for Intraepithelial Lesion or Malignan cy INTERPRETATION ? Reactive cellular omkar nges associated with inflammation present (includes repair). Previous Gynecologic Pathology: HPV: + HR Other: Additional clinical information: neg pap 2014 Specimen/Source: ??Pap Test, Cervix, ThinPrep Imaging System with manual evaluation Document reviewed and electronically signed by: ? HECTOR EARLY MD ? Report ??Date: 02/15/2016 14:30 HPV with Pap Test ? Date Ordered: ? 02/15/2016 ? Status: ?? Signed Out ?Date Complete: ? 02/19/2016 ? By: ??Sy stem Interface ? Date Reported: ? 02/19/2016 ? Interpretation RESULT: Positive for high or intermediate risk HPV. E6 OR E7 mRNA from one or more types of HPV types 16,1 8,31, 33,35,39,45,51,52,56,58,59,66, and 68 is detected by service center coordinator mediated amplification. High and intermediate risk HPV types are associated wi th most squamous intraepithelial lesions and cervical can cers. Comments Document reviewed and electronically signed by: ? System Interface ? Report date: 02/19/2016 By the signature above, the attending physician certif ies that he/she has personally conducted a gross and/or microscopic examin ation of the described specimens and rendered or confirmed the above diagnosi s. End of Report Specimen Performing Organization Address City/State/ZIP Code Phon e Number [facility] [address] [place] [address] SERVICES documented in this encounter Visit Diagnoses Not on filedocumented in this encounter Care Teams Low Pressure Kettle Operator Relationship Specialty Start Date End Date Fitz Jenkins MD PCP - General 06/01/10 02/07/[address] [place] [address] Unknown, Provider, PCP - General 02/08/16 03/05/16 Fitz Jenkins MD 02/08/[address] [place] [address] documented as of this encounter
--- OUTSIDE RECORDS SUMMARY | 2021-12-21 00:41 | XMS_ITS | Encounter Summary ---
:1950 Author Organization [facility] Address [address] [place] [address] Care Team Providers Name Role Phone Elmer Allen MD Primary Care Provider [phone] Encounter Details Date Type Department Care Team Description 03/11/2007 Results Only [facility] - Hao Bran MD conversion [address] [place] [address] [place], [place] [address] [phone] Social History Tobacco Use Types Packs/Day Years Used Date Never Assessed Sex Assigned at Date Recorded Not on file documented as of this encounter Plan of Treatment Not on filedocumented as of this encounter Procedures Procedure Name Priority Date/Time Associated Diagnosis Comme nts SURGICAL PATHOLOGY Routine 03/11/2007 0:00 EDT Re sults for this procedure are i n the results section. documented in this encounter Results SURGICAL PATHOLOGY (03/11/2007 0:00 EDT) Pathology SURGICAL PATHOLOGY REPORT [facility] Report: Reports generated via electronic interface contain jennifer ginal data; LAB however they are lacking the format of the original re port. Caution should be taken when reading/interpreting unfo rmatted reports. Name: ? SAUNDRA DHALIWAL ? Accession #: ? [id number] ? : ? 1950 (Age: 56) ??F ? Collect Date: ? 03/11/2007 ? Location: ? [facility] ? Receive Date: ? 007 ? Provider: HAO SCRUGGS MD Copy to: ELMER ALLEN MD ? Final Pathologic Diagnosis: A. ?Stomach, antrum, biopsy: 1. ?No specific pathologic features. See microscopic and comment. B. ?Stomach, body, biopsy: 1. ?No specific pathologic features. C. ?Stomach, fundus, biopsy: 1. ?Body type mucosa with foveolar hyperp lasia. D. ?Stomach, site not specified, biopsy: 1. ?Neuroendocrine tumor. ?? E. ?Esophagus, 38 cm, biopsy: 1. ?Squamocolumnar mucosa with mild chron ic inflammation. Comment: ? In specimen (D), the findings are those of a neuroendocrine tumor arising in oxyntic mucosa. These michael ors can arise either sporadically or in association with hypergastrinemia. Findings supporting a sporadic lesion include the relatively unremarkable background oxyntic mucosa (aminah igating against a diagnosis of chronic atrophic gastritis), the lack of enterochromaffin-like (ECL) cell hyperplasia/dyspl fanta, the lack of gastrin cell (G-cell) hyperplasia, and the lack of immunohistoc hemical evidence of gastrin production by the tumor cells. The distinction between a sporadic lesion versu s one associated with hypergastrinemia is an important one, as the sporadic lesions tend to behave more aggressively, including association with both lym ph node and distant metastases. Thus, clinical c orrelation, possibly including serum gastrin levels, is essential to exclude othe r causes of hypergastrinemia. Classification of this tumor awaits definitive therapy to assess overall tumo r size, depth of involvement, and vascular invasion. In t he current specimen, the tumor appears to be infiltrating the muscularis mucosa. It occupies approximately a 1.0 mm area within the biopsy. However, the overall jonathan surement may be larger as the tumor extends to the base of the biopsy specimen. No mitoses are identified. The tumor shows retraction artifact with no definitive lym phovascular invasion identified. However, there is a focus suspicious for lymphovascular invasion. Also present is cytologic at ypia, which can be seen in ??sporadic lesions. There is no evidence of a conventional carcinoma. Further, m ucin production is not appreciated by H+E stained sections. No Helicobacter pylori-like organisms are identified within the biopsy series. No intestinal met aplasia is identified. This case has been reviewed by Dr. Fitz Chester who concurs with the above diagnoses. This case has been discussed with Dr. Scruggs on 03/19/07. (Dr. White)/[facility] Microscopic Description: ? Sections of specimen (D) consist of a bio psy to the muscularis mucosa. Within the lamina propria, admixed among the oxyntic g lands, are nests of neoplastic cells. The individual cells show nucl ear enlargement with round to oval nuclei and associated eosinophilic cytoplasm. Jeovany e of the nuclei have speckled chromatin with small conspicuous nucleoli. Ot her nuclei are more hyperchromatic with coarser nuclear chromatin and greater nuclear irregularity. The tumor cells infiltrate t he muscularis mucosae and extend to the base of the biopsy specimen. Immunohistochemistry supports a neuroendocrine lineage based upon positive staining with synaptophysin (Snp88, [employer] enex), chromogranin (LK2H10, Hybritech), and keratin AE1-AE3 (AE1-AE3, [employer]). No mitoses are identified. Although clefting artifact is present, no definitive lymphovascular invasion is identified by either light microscopy or immunohistochemical staining with D2-40 (D2-40, Dako). There is a focus, however, which is suspicious for lymphovascular invasion. In specimens (B-D), ECL cell hyperplasia is not identified by either light microscopy or synaptophysin staining. ECL cell dysplasia is not iden tified. Additionally, G-cell hyperplasia is not identified. Gastrin stain (p olyclonal, Dako) on specimen (D) is negative. Synaptophysin done on specimen (A) is negative. The parietal cells present in the biopsy ser ies are relatively unremarkable. There is no evidence of glandular atrophy. Document reviewed and electronically signed by: Vivian White MD Report ??Date: 03/20/2007 13:48 By the signature above, the attending physician certif ies that he/she has personally conducted a gross and/or microscopic examin ation of the described specimens and rendered or confirmed the above diagnosi s. Specimen(s) Received: A. ?Bx antrum B. ? Bx gastric biopsy C. ? fundic gland polyp D. ? gastric polyp E. ? Linares's esophagus 38 cm bx Clinical History: ? Gastroscopy, epigastric RUQ pain and dysp epsia, epigastric pain, NSAID dyspepsia Gross Description: ? Received in Hollande' s fixative labelled Harvinder and bx antrum is a 0.4 x 0.3 x 0.3 cm grossman-pink soft tissue. The specimen is entirely submitt ed as (A). ? Received in Hollande' s fixative labelled Harvinder and bx gastric body is a 0.3 x 0.3 x 0.3 cm grossman-pin k soft tissue. ??The specimen is entirely submitted as (B). Received in Hollande's fixat patrick labelled Harvinder and ? fundic gland polyp are three grossman-pink soft tissues averaging 0.4 x 0.3 x 0.3 cm. ??The specimen is entirely submitted as (C). Received in Hollande's fixat patrick labelled Harvinder and ? gastric polyp are two grossman-pink soft tissues averaging 0.3 x 0. 3 x 0.3 cm. ??The specimen is entirely submitted as (D). Received in Hollande's fixat patrick labelled Harvinder and bx ? Linares's esophagus 38 cm is a 0.3 x 0.3 x 0.3 cm grossman-pink soft tis chris. The specimen is entirely submitted as (E). (Dr. Webb)/mpl End of Report Specimen Performing Organization Address City/State/ZIP Code Phon e Number [facility] [address] [place] [address] SERVICES [facility] [address] [place] [address] documented in this encounter Visit Diagnoses Not on filedocumented in this encounter Care Teams Environmental Health And Safety Intern Relationship Specialty Start Date End Date Elmer Allen MD PCP - General 06/08/09 05/31/10 [address] [place] [id number] documented as of this encounter
--- OUTSIDE RECORDS SUMMARY | 2021-12-21 00:41 | XMS_ITS | Encounter Summary ---
:1950 Author Organization [facility] Address [address] [place] [address] Care Team Providers Name Role Phone Unavailable Primary Care Provider Unavailable Encounter Details Date Type Department Care Team Description 01/28/2002 Hospital Encounter [facility] [id number] [place] [phone] (Wo rk) Social History Tobacco Use Types Packs/Day Years Used Date Never Assessed Sex Assigned at Date Recorded Not on file documented as of this encounter Discharge Disposition Disposition Code Departure Means Destination Auto Discharge documented in this encounter Plan of Treatment Not on filedocumented as of this encounter Visit Diagnoses Not on filedocumented in this encounter
--- OUTSIDE RECORDS SUMMARY | 2021-12-21 00:41 | XMS_ITS | Encounter Summary ---
:1950 Author Organization [facility] Address [address] [place] [address] Care Team Providers Name Role Phone Unavailable Primary Care Provider Unavailable Encounter Details Date Type Department Care Team Description 05/30/2006 Hospital Encounter [facility] - Uriel Donnelly MD [address] [place] [address] Kely Jerome MD [address] [place] [phone] [address] [place], [place] [id number] Social History Tobacco Use Types Packs/Day Years Used Date Never Assessed Sex Assigned at Date Recorded Not on file documented as of this encounter Discharge Disposition Disposition Code Departure Means Destination Auto Discharge documented in this encounter Plan of Treatment Not on filedocumented as of this encounter Visit Diagnoses Not on filedocumented in this encounter
--- OUTSIDE RECORDS SUMMARY | 2021-12-21 00:41 | XMS_ITS | Encounter Summary ---
:1950 Author Organization [facility] Address [address] [place] [address] Care Team Providers Name Role Phone Elmer Dunn MD Primary Care Provider [phone] Encounter Details Date Type Department Care Team Description 09/13/2002 Results Only [facility] - Jr Medina MD conversion [address] [place] [address] Social History Tobacco Use Types Packs/Day Years Used Date Never Assessed Sex Assigned at Date Recorded Not on file documented as of this encounter Plan of Treatment Not on filedocumented as of this encounter Procedures Procedure Name Priority Date/Time Associated Diagnosis Comme nts CYTOPATHOLOGY Routine 09/13/2002 0:00 EDT Results for this procedure are i n the results section . documented in this encounter Results CYTOPATHOLOGY (09/13/2002 0:00 EDT) Pathology Report: CYTOPATHOLOGY REPORT [facility] Reports generated via electronic interface contain jennifer ginal data; however they are lacking the format of the original re port. Caution should be taken when reading/interpreting unfo rmatted reports. Name: ? SAUNDRA DHALIWAL ? Accession #: ? [id number] : ? 1950 (Age: 52) ??F ?Collect Date: ? 08/18 Location: ? [facility] ? Receive Date : ? 09/14/2002 Provider: ?JR DUFF MD Copy to: ? Specimen/Source: ?ThinPrep Pap Test, Cervix/ Endocervix Last Menstrual Period: ? 02/17 ? SPECIMEN ADEQUACY ? Satisfactory for Evaluation - transformation zone component present GENERAL CATEGORIZATION ? Negative for Intraepithelial Lesion or Malignan cy ? Document reviewed and electronically signed by: ? QUANG Castro(ASCP) ? Report Date: ??09/16/2002 14:11 End of Report Specimen Performing Organization Address City/State/ZIP Code Phon e Number [facility] [address] [place] [address] SERVICES [facility] [address] [place] [address] documented in this encounter Visit Diagnoses Not on filedocumented in this encounter Care Teams Rent And Housing Investigator Relationship Specialty Start Date End Date Elmer Dunn MD PCP - General 06/08/09 05/31/10 [facility] [place] [address] documented as of this encounter
--- OUTSIDE RECORDS SUMMARY | 2021-12-21 00:41 | XMS_ITS | Encounter Summary ---
:1950 Author Organization [facility] Address [address] [place] [address] Care Team Providers Name Role Phone Elmer Allen MD Primary Care Provider [phone] Encounter Details Date Type Department Care Team Description 06/04/2006 Results Only [facility] - Hao Bran MD conversion [address] [place], [place] [id number] [place] [id number] [phone] Social History Tobacco Use Types Packs/Day Years Used Date Never Assessed Sex Assigned at Date Recorded Not on file documented as of this encounter Plan of Treatment Not on filedocumented as of this encounter Procedures Procedure Name Priority Date/Time Associated Diagnosis Comme nts SURGICAL PATHOLOGY Routine 06/04/2006 0:00 EST Re sults for this procedure are i n the results section. documented in this encounter Results SURGICAL PATHOLOGY (06/04/2006 0:00 EST) Pathology Report: SURGICAL PATHOLOGY REPORT [facility] Reports generated via electronic interface contain jennifer ginal data; LAB however they are lacking the format of the original re port. Caution should be taken when reading/interpreting unfo rmatted reports. Name: ? ED DHALIWAL ? Accession #: ? [id number] ? : ? 1950 (Age: 56) ??F ? Collect Date: ? 06/04/2006 ? Location: ? [facility] ? Receive Date: ? 007 ? Provider: HAO CHOW MD Copy to: ELMER ALLEN MD ? Final Pathologic Diagnosis: A. ?Duodenum, biopsy: 1. ?Duodenal mucosa with no specific path ologic features. B. ?Stomach, antrum, biopsy: 1. ?Gastric, ree dy type mucosa with no specific pathologic features. C. ?Stomach, cardia, polyp, biopsy: 1. ?Gastric, ree dy type mucosa with no specific pathologic features. D. ?Stomach, cardiac, polyp, biopsy: 1. ?Gastric, ca rdiac type mucosa with focal chronic gastritis, mild. See comment. E. ?Stomach, lesser curvature, biopsy: 1. ?Gastric, ree dy type mucosa with no specific pathologic features. F. ?Esophagus, esophagogastric, junction, biopsy: 1. ?Gastric, ca rdiac type mucosa with no specific pathologic features. G. ?Terminal ileum, biopsy: 1. ?Small intestinal mucosa with no specific pathologic features. H. ?Colon, random, biopsy: 1. ?Colonic mucosa with no specific patho logic features. I. ?Colon, rectum, biopsy: ? 1. ?? Colonic mucosa with no specific pathologic features Comment: ? Histologic sections of the biopsy show gastric mucosa with foveolar hyperplasia, and focal chron ic inflammation. ??The findings are consistent with hyperplastic polyp. ??No Hel icobacter like are identified. Slides from specimen D were reviewed at intradepartmental consultation confer ence. (Dr. Livingston)/[facility] Document reviewed and electronically signed by: Yusuf Livingston MD Report ??Date: 06/06/2006 15:50 By the signature above, the attending physician certif ies that he/she has personally conducted a gross and/or microscopic examin ation of the described specimens and rendered or confirmed the above diagnosi s. Specimen(s) Received: A. ?Bx duodenum (#1) B. ? Bx gastric antrum (#2) C. ? Bx gastric body (#3) D. ? Bx polypoid lesion of cardia (#4) E. ? Bx lesser curvature of stomach (#5) F. ? Bx E-G junction (#6) G. ? Bx terminal ileum (#7) H. ? Random colon bx (#8) I. ? Rectal bx (random) (#9) Clinical History: ? Epigastric pain & diarrhea Gross Description: ? Received in [place]' s fixative labelled Harvinder and #1 ??duodenum bx is a 0.2 x 0.2 x 0.2 cm biopsy. The specimen is submitted intact as (A). Received in [place]'s fixat patrick labelled Harvinder and #2 ??bx gastric antrum is a 0.3 x 0.2 x 0.2 cm biopsy. ??The specimen is submitt ed intact as (B). Received in [place]'s fixat patrick labelled Harvinder and #3 ??bx gastric body is a 0.5 x 0.2 x 0.1 cm biopsy. The specimen is submitted i ntact as (C). Received in [place]'s fixat patrick labelled Harvinder and #4 ??bx polypoid lesion of cardia is a 0.3 x 0.3 x 0.2 cm biopsy. ??The sp ecimen is submitted intact as (D). Received in [place]'s fixat patrick labelled Harvinder and #5 ??bx lesser curvature of stomach is a 0.2 x 0.2 x 0.2 cm biopsy. The specimen is submitted intact as (E). Received in [place]'s fixat patrick labelled Harvinder and #6 ??bx EG junction is a 0.3 x 0.2 x 0.2 cm biopsy. The specimen is submitted i ntact as (F). Received in [place]'s fixat patrick labelled Harvinder and #7 ??bx terminal ileum is a 0.3 x 0.2 x 0.1 cm biopsy. The specimen is submitted intact as (G). [facility] labelled Harvinder and #8 ??bx ??random colon are three biopsies which each measure 0.2 x 0.2 x 0.1 cm. ??The specimens are submitted intact as (H). Received in [facility]'s fixative labelled Harvinder and #9 ??bx rectum (random) are two biopsies measuring 0.3 x 0.1 x 0.1 cm and 0.3 x 0.2 x 0.1 cm. ??The specimens are submitted intact as (I). ??(Fer [place])/[facility] End of Report Specimen Performing Organization Address City/State/ZIP Code Phon e Number [facility] [address] [place] [address] SERVICES [facility] [address] [place] [address] documented in this encounter Visit Diagnoses Not on filedocumented in this encounter Care Teams Fence Installer Foreman Relationship Specialty Start Date End Date Elmer Allen MD PCP - General 06/08/09 05/31/10 [address] [place] [address] documented as of this encounter
--- OUTSIDE RECORDS SUMMARY | 2021-12-21 00:41 | XMS_ITS | Encounter Summary ---
:1950 Author Organization [facility] Address [address] [place] [address] Care Team Providers Name Role Phone Elmer Dunn MD Primary Care Provider [phone] Encounter Details Date Type Department Care Team Description 09/14/2001 Results Only [facility] - Jr Medina MD conversion [address] [place] [address] Social History Tobacco Use Types Packs/Day Years Used Date Never Assessed Sex Assigned at Date Recorded Not on file documented as of this encounter Plan of Treatment Not on filedocumented as of this encounter Procedures Procedure Name Priority Date/Time Associated Diagnosis Comme nts CYTOPATHOLOGY Routine 09/14/2001 0:00 EDT Results for this procedure are i n the results section . documented in this encounter Results CYTOPATHOLOGY (09/14/2001 0:00 EDT) Pathology Report: CYTOPATHOLOGY REPORT [facility] Reports generated via electronic interface contain jennifer ginal data; however they are lacking the format of the original re port. Caution should be taken when reading/interpreting unfo rmatted reports. Name: ? SAUNDRA DHALIWAL ? Accession #: ? [id number] : ? 1950 (Age: 51) ??F ?Collect Date: ? 08/18 Location: ? [facility] ? Receive Date : ? 09/15/2001 Provider: ?JR DUFF MD Copy to: ? Specimen/Source: ?ThinPrep Pap Test, Cervix/ Endocervix Last Menstrual Period: ? SPECIMEN ADEQUACY ? Satisfactory for Evaluation - transformation zone component present GENERAL CATEGORIZATION ? Other, see interpretation INTERPRETATION ? Endometrial cells present in a woman equal to o r greater than age 40. Negative for Intraepithelial Lesion or Malignancy. ? COMMENT ? Benign appearing endometrial cells on Pap tests are usually a normal finding in women with regular menstrual cycles, especi ally if the Pap was collected during the first h maddie of the menstrual cycle. ??There is data showing that endometrial cells on Pap tests may be associated with endometrial/uterine abnormalities in post menopausal women o r in premenopausal women with abnormal bleeding. ??There is limited data on the significance of benign endometrial cells in post menopausal women on HRT. ??Clinical correlatio n is recommended. Note: ?? The Pap test is not an accurate test for the screening of endometrial lesions and should not be used as a follow up in patie nts with clinical suspicion of endometrial pathology. ? Document reviewed and electronically signed by: ? IMTIAZ JORGENSEN MD ? Report Date: ??09/18/2001 15:23 End of Report Specimen Performing Organization Address City/State/ZIP Code Phon e Number [facility] [address] [place] [address] SERVICES [facility] [address] [place] [address] documented in this encounter Visit Diagnoses Not on filedocumented in this encounter Care Teams Garment Cutter Relationship Specialty Start Date End Date Elmer Dunn MD PCP - General 06/08/09 05/31/10 [address] [place] [id number] documented as of this encounter
--- OUTSIDE RECORDS SUMMARY | 2021-12-21 00:41 | XMS_ITS | Encounter Summary ---
:1950 Author Organization [facility] Address [address] [place] [address] Care Team Providers Name Role Phone Unavailable Primary Care Provider Unavailable Encounter Details Date Type Department Care Team Description 05/30/2006 Before PRISM Converted [facility] - Raji Schreiber, Visit (Daina) Daina valdes MD [address] [place] [address] [place], [place] [phone] Social History Tobacco Use Types Packs/Day Years Used Date Never Assessed Sex Assigned at Date Recorded Not on file documented as of this encounter Progress Notes Jonnathan, [employer] - 05/25/2009 0253 EST DIVISION OF PAIN MANAGEMENT PROGRESS/FOLLOWUP NOTE - 05/30/2006 INTERVAL HISTORY: Saundra is a very pleasant female who has usually been followed by Dr. dAams for lumbar back pain and history of right L5 radiculopathy who presents today to establish continued carein our clinic with Dr. Donnelly and myself. She has a significant history of having a diskectomy at L5-S1 in 1975 and has MRI evidence of herniated disk at L4-5. She also has a history of a right L5 radiculopathy.She was initially seen in our clinic in November 2001, having an interlaminar epidural steroid injection at L4-5 and has had that repeated again and both have given her significant relief. She has then undergone series of three right transforaminal epidural steroid injections at L4-5, the first on December 19, 2003, then on April 11, 2004, and most recently on December 09, 2005. Each of these have given her anywhere from three months to a year of relief. The most recent injection on December 09, 2005 has given significant relief up until a few weeks ago. However, her pain still is significantly improved. She also takes Topamax and has been on this for the past four years which does seem to help as well. She does admit that the pain which is usually on her right has migrated slightly to the left. However, she is seeing physical therapy and is undergoing aquatherapy and a TENS unit and this has significantly improved the left pain.Of note, she was recently diagnosed with a second deep venous thrombosis in March 2006 of her right calf and has been on Coumadin therapy since diagnosis. She is also having current issues with diarrhea and has been off the Coumadin for two days as sheis anticipating an upper GI and lower GI endoscopy. Currently her pain is mostly in her right lower back radiating laterally down the right leg and skipping the knee and then coming back to the lateral aspect of her midcalf to include the entire lateralportion of her foot and the sole. She describes the pain in her leg as numbness, pins and needles, occasionally sharp and occasionally she notices a toe that goes cold. She does have a chronically weakgreat toe on the right. She has also had toe correction surgery of the second and third toe on the right as well. She denies any new weakness in her legs and otherwise denies any change in her pain. ALLERGIES: CODEINE. CURRENT MEDICATIONS: Lexapro, Diovan, Topamax, multivitamin, ibuprofen p.r.n., Lunesta, calcium, levothyroxine, hydrocodone p.r.n., Coumadin, omeprazole. REVIEW OF SYSTEMS: No fevers and chills. No unexplained change in weight. No change in bowel or bladder symptoms other than the diarrhea that she is experiencing. Is being treated currently for a DVT, no rashes. PHYSICAL EXAMINATION: Height 5 feet 9 inches. Weight 248 pounds. Blood pressure 148/83, pulse 73, respirations 20, temperature 98.1. In general, pleasant, healthy-appearing, mildly overweight Caucasianfemale, very cooperative to examination with a very pleasant and normal affect. Skin warm and dry, no rashes or unusual lesions. Mild tenderness on palpation of theright lumbosacral musculature and mildly over the sacroiliac joint. Full range of motion on lumbosacral flexion and extension. Facet loading maneuvers negative bilaterally. Not able to walk on toes due to the surgery. Able to briefly standon her heels.Strength 5/5 in all muscle groups with the exception of the dorsiflexion of the right great toe. Deep tendon reflexes 2+ and equal at patellae and Achilles with no ankle clonus. Straight leg raise negative bilaterally. Hip joints with full range of motionand nontender and sacroiliac joints nontender as well. Diminished sensation over the lateral aspect of the calf from the midcalf down on the right and over the dorsum of the foot in comparison to the left. Intact sensation over the soleand medial malleolus. IMPRESSION: Lumbar spondylosis with chronic L5 radicular type pain status post favorable response toepidural steroid injections in the past. RECOMMENDATIONS: 1. Do feel it is reasonable to repeat the lumbar epidural steroid injection, however, willallow her physicians coordinating her care and treatment of her DVT to assess when it would be reasonable to have her off the Coumadin as she will need to be off this for approximately five days. An INR will needto be obtained the day prior to the procedure and faxed to our clinic. NSAIDs should also be discontinued for at least five days as well. She is to coordinate this and contact our office for an appointment when this could be performed. She is also recommended to have this performed after her diarrhea has been fully assessed. Dr. Leatha Donnelly was present and participated in all parts of this examination and visit. Signed by Leatha Regalado MD 06/04/2006 11:03 Gareth Bustos MDAnn Marie Gonzalez-Munoz, MD Dictated by: Kely Schreiber MD Leatha Regalado MD - MD Candie Cedrick almanza Job ID: [id number] Document ID: [id number] cc: MD Corina Fisher NP documented in this encounter Plan of Treatment Not on filedocumented as of this encounter Visit Diagnoses Not on filedocumented in this encounter
--- OUTSIDE RECORDS SUMMARY | 2021-12-21 00:41 | XMS_ITS | Encounter Summary ---
:1950 Author Organization [facility] Address [address] [place] [address] Care Team Providers Name Role Phone Unavailable Primary Care Provider Unavailable Encounter Details Date Type Department Care Team Description 02/01/2005 Hospital Encounter [facility] - Eric Dwyer Maple conversion MD [address] [facility] [address] [place] [address] [facility] [phone] (Wo rk) Social History Tobacco Use Types Packs/Day Years Used Date Never Assessed Sex Assigned at Date Recorded Not on file documented as of this encounter Discharge Disposition Disposition Code Departure Means Destination Auto Discharge documented in this encounter Progress Notes Coleman Vallejo CNM - 02/01/2005 0000 EDT DIVISION OF PAIN MANAGEMENT PROGRESS/FOLLOWUP NOTE - 02/01/2005 REASON FOR VISIT: Followup in a patient with low back and right lower extremity pain. INTERVAL HISTORY: Ms. Blanton presents today after receiving an epidural steroid injection in the clinic within the last month. The patient has longstanding low back pain and right lower extremity pain.The patient has a longstanding history of right L5 radiculopathy resulting in foot drop on the rightand numbness in the dorsal aspect of her foot. The patient has been having some improvement in her weakness in the right foot, but continues to have significant numbness. We have been treating the patient for right L4-type symptoms that she states are improved dramatically. She continues to have good relief of her anterior thigh pain, and now complains of medial right foot pain that she states as an ache. She says it is much, much improved over previous presentations. Today, she states her pain is a4/10 and states that her back pain is much more significant at this time than her leg pain. She continues to do physical therapy with good relief. Today, the patient denies any lower extremity numbness, weakness, or tingling, except for that that she had described previously and is longstanding. Today, this patient presents specifically for discussion of inclusion in the nucleoplasty study. PHYSICAL EXAMINATION: Height is 5 feet 9 inches, weight is 244 pounds. Blood pressure is 121/75, pulse 66, respiratory rate is 16, and temperature is 36.2. In general, this is a middle-aged female who appears to be in no acute distress. The patient has 5/5 motor strength in the lower extremities. Sensation is intact to pinprick except in the dorsum of her right foot, which is unchanged. Straight leg raise is negative bilaterally. ASSESSMENT: 1. Lumbar spondylosis and degenerative disk disease with resolving right lower extremity radicular pain. 2. Residual right L5 radiculopathy, which is improved. PLAN: 1. As the patient has primarily low back and minimal right lower extremity pain, she is not a candidate for the nucleoplasty study at this time. 2. The patient may return to clinic on an as needed basis. Should she have recurrence of her radicular pain,we will perform a transforaminal epidural steroid injection at that time. 3. The patient should continue physical therapy for low back pain, as this seems to be helping her. 4. If the patient continues to have severe axial low back pain, she may be a candidate for medial branch blocks and possible radiofrequency treatment of her facets. We will leave it up to the patient to consider followup in the future as she seems to be doing very well right now. Dr. Adams was present and participated throughout this evaluation. Signed by Roman Adams MD 02/20/2005 10:28 Misti Mena MDJames Rathmell, MD Dictated by: Coleman Vallejo MD Roman Adams MD - Coleman Vallejo MD A - re Job ID: [id number] Document ID: [id number] cc: MD Corina Fisher NP Roman Ling MD - 02/01/2005 0000 EDT DIVISION OF PAIN MANAGEMENT PROGRESS/FOLLOWUP NOTE - 02/01/2005 ATTENDING: Roman Adams MD TRAFFIC POLICE OFFICER: Coleman Vallejo MD PROCEDURE: Outpatient followup consultation. PREPROCEDURE DIAGNOSIS: Low back and right lower extremity pain with a history of recurrent L4-5 herniated disk. POSTPROCEDURE DIAGNOSIS: Low back and right lower extremity pain with a history of recurrent L4-5 herniated disk. CHIEF COMPLAINT: Low back and right leg pain. HISTORY: This is a 54-year-old woman with persistent low back and right lower extremity pain associated with a herniated disk. She returns for ongoing followup today. I have interviewed and examined the patient together with Dr. Vallejo and I have reviewed his assessment and plan and I concur. Ms. Blanton has had marked diminution in both the weakness and pain in her right lower extremity following selective nerve root injection. At this point in time, we will proceed with expectant management and she will return to see me on an as needed basis. Signed by Roman Adams MD 02/20/2005 10:09 Lakeshia Harvey MD Roman Adams MD - Roman Adams MD A - re Job ID: [id number] Document ID: [id number] cc: MD Corina Fisher NP documented in this encounter Plan of Treatment Not on filedocumented as of this encounter Visit Diagnoses Not on filedocumented in this encounter
--- OUTSIDE RECORDS SUMMARY | 2021-12-21 00:41 | XMS_ITS | Encounter Summary ---
:1950 Author Organization [facility] Address [address] [place] [address] Care Team Providers Name Role Phone Unavailable Primary Care Provider Unavailable Encounter Details Date Type Department Care Team Description 01/24/2004 Hospital Encounter [facility] - Roman Adams MD [address] [place] [phone] [facility] Donovan Mayer MD [address] [place] [address] [address] [place], [place] [id number] Social History Tobacco Use Types Packs/Day Years Used Date Never Assessed Sex Assigned at Date Recorded Not on file documented as of this encounter Discharge Disposition Disposition Code Departure Means Destination Auto Discharge documented in this encounter Plan of Treatment Not on filedocumented as of this encounter Visit Diagnoses Not on filedocumented in this encounter
--- OUTSIDE RECORDS SUMMARY | 2021-12-21 00:41 | XMS_ITS | Encounter Summary ---
:1950 Author Organization [facility] Address [address] [place] [address] Care Team Providers Name Role Phone Elmer Allen MD Primary Care Provider [phone] Encounter Details Date Type Department Care Team Description 01/15/2007 Results Only [facility] - Hao Bran MD conversion [address] [place], [place] [address] [place] [id number] [phone] Social History Tobacco Use Types Packs/Day Years Used Date Never Assessed Sex Assigned at Date Recorded Not on file documented as of this encounter Plan of Treatment Not on filedocumented as of this encounter Procedures Procedure Name Priority Date/Time Associated Diagnosis Comme nts SURGICAL PATHOLOGY Routine 01/15/2007 0:00 EDT Re sults for this procedure are i n the results section. documented in this encounter Results SURGICAL PATHOLOGY (01/15/2007 0:00 EDT) Pathology Report: SURGICAL PATHOLOGY REPORT [facility] Reports generated via electronic interface contain jennifer ginal data; LAB however they are lacking the format of the original re port. Caution should be taken when reading/interpreting unfo rmatted reports. Name: ? ED DHALIWAL ? Accession #: ? [id number] ? : ? 1950 (Age: 56) ??F ? Collect Date: ? 01/15/2007 ? Location: ? [facility] ? Receive Date: ? 007 ? Provider: HAO CHOW MD Copy to: ELMER ALLEN MD ? Final Pathologic Diagnosis: ? Skin of neck, left, excision: 1. ?Melanocytic nevus, compound type. See comment. ? - Nevus extends focally to peripheral and deep margins of excision specimen. Comment: ? The biopsy consists o f a compound melanocytic nevus that is predominated by the dermal component. In areas, the epidermis and supe rficial dermis show reparative change suggest of irritation/trauma. The de rmal melanocytes show manager labor delivery maturation with no appreciable atypia. (Dr. Baron espinosa)/jbm ?? Microscopic Description: ? Sections are of a dom e-shaped papule. ??The epidermis is of normal thickness but has a diminutive rete ar chitecture. ??The papule is formed by a circumscribed and symmetric compound proli feration of melanocytes. ??The junctional component consists primarily of nests with single cells at the summit of the papule. ??The nests are generally small and evenly spaced. ??The mikey anocytes are slightly enlarged but have relatively uniform round-oval nuclei and a moderate amount of cytoplasm containing melanin pigment. ??The dermal component consists of nests, cords, and strands of similar melanocytes showing orde rly maturation with descent. ??(Dr. Talavera)/jbm Document reviewed and electronically signed by: Angelica Talavera MD Report ??Date: 01/16/2007 16:53 By the signature above, the attending physician certif ies that he/she has personally conducted a gross and/or microscopic examin ation of the described specimens and rendered or confirmed the above diagnosi s. Specimen(s) Received: ? Bleeding left neck skin lesion Clinical History: ? H/O DVT ??on Coumadin, with bleeding skin lesio n left neck Gross Description: ? Received in formalin labelled Harvinder and bleeding left neck skin is an unoriented, elliptical excision of skin which measures 1.2 x 0.4 cm and is excised to a depth of 0.2 cm. ??The cuta neous surface has a 0.2 cm in diameter area of thickened skin. ??Th e specimen is inked, serially sectioned, and entirely submitted as (A1) distal tip s, reverse en face, and (A2) central sections. ??(Dr. Velasquez)/[facility] End of Report Specimen Performing Organization Address City/State/ZIP Code Phon e Number [facility] [address] [place] [address] SERVICES [facility] [address] [place] [address] documented in this encounter Visit Diagnoses Not on filedocumented in this encounter Care Teams Adjunct Communications Faculty Member Relationship Specialty Start Date End Date Elmer Allen MD PCP - General 06/08/09 05/31/10 4 [facility] [place] [phone] documented as of this encounter
--- OUTSIDE RECORDS SUMMARY | 2021-12-21 00:41 | XMS_ITS | Encounter Summary ---
:1950 Author Organization [facility] Address [address] [place] [address] Care Team Providers Name Role Phone Elmer Dunn MD Primary Care Provider [phone] Encounter Details Date Type Department Care Team Description 10/06/2006 Results Only [facility] - Jr Medina MD conversion [address] [place] [address] Social History Tobacco Use Types Packs/Day Years Used Date Never Assessed Sex Assigned at Date Recorded Not on file documented as of this encounter Plan of Treatment Not on filedocumented as of this encounter Procedures Procedure Name Priority Date/Time Associated Diagnosis Comme nts CYTOPATHOLOGY Routine 10/06/2006 0:00 EDT Results for this procedure are i n the results section . documented in this encounter Results CYTOPATHOLOGY (10/06/2006 0:00 EDT) Pathology Report: CYTOPATHOLOGY REPORT [facility] Reports generated via electronic interface contain jennifer ginal data; however they are lacking the format of the original re port. Caution should be taken when reading/interpreting unfo rmatted reports. Name: ? SAUNDRA DHALIWAL ? Accession #: ? [id number] : ? 1950 (Age: 56) ??F ?Collect Date: ? 09/17 Location: ? [facility] ? Receive Date : ? 10/07/2006 Provider: ?JR DUFF MD Copy to: ? Specimen/Source: ? ThinPrep Pap Test, Cervix/Endocervix, processed on [employer] ThinPrep Imaging System, with manual evaluation Last Menstrual Period: ? 02/17 Menstrual/ Status: ? Post Menopausal: Post Menopausal bleeding ? SPECIMEN ADEQUACY ? Satisfactory for Evaluation - transformation zone component present GENERAL CATEGORIZATION ? Negative for Intraepithelial Lesion or Malignan cy ? Document reviewed and electronically signed by: ? Pippa Caceres, [facility](ASCP) ? Report Date: ??10/09/2006 12:45 End of Report Specimen Performing Organization Address City/State/ZIP Code Phon e Number [facility] [address] [place] [address] [facility] [address] [place] [address] documented in this encounter Visit Diagnoses Not on filedocumented in this encounter Care Teams Supervisor Press Room Relationship Specialty Start Date End Date Elmer Dunn MD PCP - General 06/08/09 05/31/10 [address] [place] [phone] documented as of this encounter
--- OUTSIDE RECORDS SUMMARY | 2021-12-21 00:41 | XMS_ITS | Encounter Summary ---
:1950 Author Organization [facility] Address [address] [place] [address] Care Team Providers Name Role Phone Unavailable Primary Care Provider Unavailable Encounter Details Date Type Department Care Team Description 04/07/2007 Before [facility] - El Frazier, Converted Visit Daina valdes MD (Maple) [address] [facility] [address] [place], [place] [id number] [place] [address] [place], [address] [place] [address] (Wo rk) Social History Tobacco Use Types Packs/Day Years Used Date Never Assessed Sex Assigned at Date Recorded Not on file documented as of this encounter Progress Notes El Frazier MD - 03/29/2009 1046 EST DIVISION OF GASTROENTEROLOGY April 07, 2007 MS. SAUNDRA DHALIWAL [address] [place] [address] [place] [address] Dear Ms. 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 The tumor appears to have been completely removed. There were no other foci of carcinoid tumor within the stomach. Therefore I do not think you need any further treatment at this point. I would recommend that you have a repeat endoscopy evaluation of the stomach in one year. Sincerely, Signed by El Frazier MD 04/14/2007 15:04 Nickolas Frazier [phone] Frazier MD El Frazier MD [phone] - El Frazier MD - brianna Job ID: [id number] Doc ID: [id number] cc: Maria Scruggs MD *[place] [address] documented in this encounter Plan of Treatment Not on filedocumented as of this encounter Visit Diagnoses Not on filedocumented in this encounter
--- OUTSIDE RECORDS SUMMARY | 2021-12-21 00:41 | XMS_ITS | Encounter Summary ---
:1950 Author Organization [facility] Address [address] [place] [address] Care Team Providers Name Role Phone Unavailable Primary Care Provider Unavailable Encounter Details Date Type Department Care Team Description 03/30/2007 Hospital Encounter [facility] - [address], [facility] 111 [facility] [address] [place], [place] [address] [place] [address] [address], [address] [place] [address] (Wo rk) Social History Tobacco Use Types Packs/Day Years Used Date Never Assessed Sex Assigned at Date Recorded Not on file documented as of this encounter Discharge Disposition Disposition Code Departure Means Destination Auto Discharge documented in this encounter Plan of Treatment Pending Results Name Type Priority Associated Diagnoses Date/Ti me CYTOPATHOLOGY Pathology Routine 04/05/2009 0:0 0 EST SURGICAL PATHOLOGY Pathology Routine 0 0:00 EST SURGICAL PATHOLOGY Pathology Routine 0 0:00 EST Scheduled Orders Name Type Priority Associated Diagnoses Order S chedule CYTOPATHOLOGY Pathology Routine ONCE for 1 Occ urrences starting 2008 SURGICAL PATHOLOGY Pathology Routine ONCE for 1 Occurrences starting 2009 SURGICAL PATHOLOGY Pathology Routine ONCE for 1 Occurrences starting 2009 documented as of this encounter Procedures Procedure Name Priority Date/Time Associated Comments Diagnosis SURGICAL PATHOLOGY Routine 06/07/2009 0:00 Result s for this EST procedure are i n the results section. HPV DETECTION, HIGH Routine 04/05/2009 14:52 Resu lts for this RISK TYPES EST procedure are i n the results section. CYTOPATHOLOGY Routine 04/05/2009 0:00 Results for this EST procedure are i n the results section. SURGICAL PATHOLOGY Routine 05/11/2008 0:00 Result s for this EST procedure are i n the results section. documented in this encounter Results SURGICAL PATHOLOGY (06/07/2009 0:00 EST) Pathology Report: SURGICAL PATHOLOGY REPORT ? [facility] Reports generated via [employer] interface contain original data; ? LAB however they are lacking the format of the original report. ? Caution should be taken when reading/interpreting unformatted reports. ? Name: ? SAUNDRA DHALIWAL ? Accession #: ? [id number] ? : ? 1950 (Age: 59) ??F ? Collec t Date: ? 06/07/2009 ? Location: ? [facility] ? R eceive Date: ? 06/07/2009 ? Provider: DARY WALKO MD ? Copy to: TRICIA MEIERDIERCKS MD ? Final Pathologic Diagnosis: ? A. ?Stomach, g astric carcinoid excision site, biopsy: ? 1. ?Oxyntic-typ e mucosa with mild chronic inflammation, edema and ? reactive changes. ? 2. ? No Helicobacter pyl jennifer-like microorganisms identified on H&E-stained ? sections. ? 3. ? No neoplastic proce ss identified. ??See comment. ? B. ?Stomach, g astric nodule, biopsy: ? 1. ?Fundic glan d polyp. ?2. ?? No Tanisha cobacter pylori-like microorganisms identified on ? H&E-stained sections. ? C. ?? Stomach, fundi c gland polyp, biopsy: ? 1. ?? Hyperplastic po lyp. ?2. ?? No Tanisha cobacter pylori-like microorganisms identified on ? H&E-stained sections. ? D. ?? Gastroesophagea l junction, biopsy: ?1. ?? Gastric -type mucosa with mild chronic inflammation and reactive ?? changes. ?2. ?? No inte stinal metaplasia identified. ? Comment: ? This case has been re viewed in conjunction with the previous gastric ? endoscopic resection ([id number]; 03/30/07). ? Document reviewed and electr onically signed by: ? Estrellita Zapata MD ? Report ??Date: 06/10/2009 11 :22 ? By the signature above, the attending physician certifies that he/she has ? personally conducted a gross and/or microscopic examination of the described ? specimens and rendered or co nfirmed the above diagnosis. ? Specimen(s) Received: ? A. ?Gastric car cinoid excision site (#1) ? B. ? Gastric nodule (#2) ? C. ? Fundic gland polyp (#3) ? D. ? Bx EG junction (#4) ? Clinical History: ? H/O gastric carcinoid , s/p endoscopic resection ? Gross Description: ? Received in Rosibel' s fixative labelled Madhuri, Saundra and gastric ? carcinoid excision site are three pink-grossman irregular soft tissues ranging from 0.3 x 0.2 x 0.2 cm to 0.8 x 0.2 x 0.1 cm. ??Submitted in toto in (A). ? Received in Rosibel's fixat patrick labelled Madhuri, Saundra and gastric nodule ?? are two pink-grossman irregular s oft tissues, each 0.3 x 0.2 x 0.2 cm. ??Submitted in toto in (B). ? Received in Rosibel's fixat patrick labelled Madhuri, Saundra and fundic gland ? polyp is a single 0.3 x 0.3 x 0.3 cm pink-grossman irregular soft tissue. ??Submitted in toto in (C). ? Received in Rosibel's fixat patrick labelled Madhuri, Saundra and biopsy EG ? junction are two pink-grossman i rregular soft tissues, each 0.3 x 0.2 x 0.2 cm, ? submitted in toto in (D). ?? (Mehreen Salinas)/kmm ? End of Report ? Specimen Performing Organization Address [facility]/ZIP Code Phon e Number [facility] [address] [place] [address] SERVICES [facility] [address] [place] [address] HUMAN PAPILLOMA VIRUS DNA TEST (04/05/2009 14:52 EST) Specimen Description Cervix, ThinPrep [facility] L AB vial Result Negative for HPV BARBARA OLIVER types 16, 18, 31, 33, 35, 39, 45, 51, 52, 56, 58, 59, and 68. Report Status Final [facility]BARA OLIVER 04/20/2009 Specimen Performing Organization Address [facility] Phon e Number [facility] [address] [place] [address] SERVICES [facility] [address] [place] [address] CYTOPATHOLOGY (04/05/2009 0:00 EST) Pathologist [facility] Pathology Report: CYTOPATHOLOGY REPORT ? [facility] ? LAB Reports generated via [employer]r [employer] interface contain original data; ? however they are lacking the format of the original report. ? Caution should be taken when reading/interpreting unformatted reports. ? Name: ? MADHURI, SAUNDRA M ? Accession #: ? [id number] ? : ? 1950 (Age: 59) ??F ?Collect Date: ? 04/05/2009 ? Location: ? [facility] ? Receive Date: ? 04/07/2009 ? Provider: ?JANEL L R OBINSON DRY HOUSE TENDER ? Copy to: ? Specimen/Source: ? Pap Test, Cervix/Endocervix, ThinPrep Imaging System ? with manual evaluation ? Last Menstrual Period: ? 1/1/03 ? Other: ? HPVDX - HPV testing requeste d regardless of diagnosis on current ThinPrep Pap ?? test. ? SPECIMEN ADEQUACY ? Satisfactory for Eval uation ? - transformation zone compon ent present ? GENERAL CATEGORIZATION ? Negative for Intraepi thelial Lesion or Malignancy ? INTERPRETATION ? Reactive cellular omkar nges associated with inflammation present (includes ?? repair). ? Document reviewed and electr onically signed by: ? Jesús B. Ambaye, MD ? Report Date: ??12/01/ 2009 09:01 ? End of Report ? Specimen Performing Organization Address City/State/ZIP Code Phon e Number [facility] [address] [place] [address] SERVICES [facility] [address] [place] [address] SURGICAL PATHOLOGY (05/11/2008 0:00 EST) Pathology Report: SURGICAL PATHOLOGY REPORT ? [facility] Reports generated via electr onic interface contain original data; ? LAB however they are lacking the format of the original report. ? Caution should be taken when reading/interpreting unformatted reports. ? Name: ? MADHURI, SAUNDRA M ? Accession #: ? [id number] ? : ? 1950 (Age: 58) ??F ? Collec t Date: ? 05/11/2008 ? Location: ? [facility] ? R eceive Date: ? 05/13/2008 ? Provider: DARY WALKO MD ? Copy to: TRICIA MEIERDIERCKS MD ? Final Pathologic Diagnosis: ? A. ?Stomach, an trum, biopsy: ? 1. ?Antral muco sa with features suggestive of reactive gastropathy. ? 2. ? No Helicobacter pyl jennifer-like microorganisms identified on H+E stained ? sections. ? B. ?Stomach, po lyp, biopsy: ? 1. ?Features clark ggestive of fundic gland polyp. ? C. ?Stomach, ree dy, biopsy: ? 1. ?Oxyntic muc rupal with vascular congestion, otherwise unremarkable. ? 2. ? No Helicobacter pyl jennifer-like microorganisms identified on H+E stained ? sections. ? D. ?Stomach, fo rmer carcinoid site, biopsy: ? 1. ?Oxyntic muc rupal with vascular congestion and submucosal ink- pigment ?? deposit, otherwise unremarka ble. ? 2. ? No evidence of tyrone gnancy. ? 3. ? No Helicobacter pyl jennifer-like microorganisms identified on H+E stained ? sections. ? E. ?Stomach, po lyp, biopsy: ? 1. ?Fundic glan d polyp. ? Document reviewed and electr onically signed by: ? Anupama Michelle MD ? Report ??Date: 05/16/2008 14 :02 ? By the signature above, the attending physician certifies that he/she has ? personally conducted a gross and/or microscopic examination of the described ? specimens and rendered or co nfirmed the above diagnosis. ? Specimen(s) Received: ? A. ?Gastric ant rum (#1) ? B. ? Fundic gland poly p ??(#2) ? C. ? Erythematous gastri c body (#3) ? D. ? Bx gastric carcinoi d site (#4) ? E. ? Gastric polyp (#5 ) ? Clinical History: ? Hx of gastric carcino id site ? Gross Description: ? Received in Gile' s fixative labelled Madhuri and gastric antrum is a grossman-pink irregular soft tiss ue measuring 0.3 x 0.2 x 0.2 cm. ??The specimen is ?? entirely submitted as (A). ? Received in [facility]'s fixat patrick labelled Madhuri and ? fundic gland polyp are two grossman-pink irregular soft tissues measuring 0.3 x 0.3 x 0.1 cm and 0.7 x 0.2 x 0.1 cm. ??The specimens are entirely submitted as (B). ? Received in [facility]'s fixat patrick labelled Madhuri and erythematous gastric ? body is a grossman-pink irregula r soft tissue measuring 0.4 x 0.2 x 0.2 cm. ??The ? specimen is entirely submitt ed as (C). ? Received in [facility]'s fixat patrick labelled Madhuri and bx gastric carcinoid ? site are two grossman-pink irreg ular soft tissues measuring 0.3 x 0.2 x 0.2 cm and ?? 0.3 x 0.3 x 0.3 cm. ??The sp ecimens are entirely submitted as (D). ? Received in Rosibel's fixat patrick labelled Madhuri and ? gastric polyp is a ? grossman-pink irregular soft tiss ue measuring 0.3 x 0.2 x 0.1 cm. ??The specimen is ?? entirely submitted as (E). ? ?(Delicia Matthews)/mms ? End of Report ? Specimen Performing Organization Address City/State/ZIP Code Phon e Number [facility] [address] [place] [address] SERVICES [facility] [address] [place] [address] documented in this encounter Visit Diagnoses Not on filedocumented in this encounter
--- OUTSIDE RECORDS SUMMARY | 2021-12-21 00:41 | XMS_ITS | Encounter Summary ---
:1950 Author Organization [facility] Address [address] [place] [address] Care Team Providers Name Role Phone Elmer Allen MD Primary Care Provider [phone] Encounter Details Date Type Department Care Team Description 04/17/2004 Before [facility] - Brain Valdes, Converted Visit Daina valdes MD (Daina) 111 [facility] [address] [place], [place] [id number] [place] [phone] (Wo rk) Social History Tobacco Use Types Packs/Day Years Used Date Never Assessed Sex Assigned at Date Recorded Not on file documented as of this encounter Plan of Treatment Not on filedocumented as of this encounter Visit Diagnoses Evaluation - Jonnathan, Conv Caser Up - 12/27/2010 1217 EDT PAIN SERVICE PROCEDURE REPORT NAME: ED GREENBERG : 1950 MRN: [id number] DATE: 04/11/2004 OP ATTENDING: BRAIN VALDES MD FINISHER [employer]CHANT [employer]ODUCTS: PROCEDURE: Right L4-5 transforaminal epidural steroid injection. PREPROCEDURE DIAGNOSIS: Chronic right L5 radiculopathy. POSTPROCEDURE DIAGNOSIS: Chronic right L5 radiculopathy. CHIEF COMPLAINT: Right leg and foot pain. HISTORY: This is a 54-year-old woman with a chronic right lumbar radiculopathy. I saw her most recently on January 24, 2004. We had performed a transforaminal epidural steroid injection empirically at the right L4-5 level in early December and on return in January she had near complete resolution ofher symptoms. She has had good pain relief but over the last several weeks has had gradual return ofher symptoms. She describes deep aching pain over the lumbosacral junction radiating all the way to the right lateral foot. There is associated numbness and tingling in the foot but not weakness and nobowel or bladder dysfunction. Her current pain is 7 on a scale of 0 to 10. CURRENT MEDICATIONS: Ranitidine, Lexapro, Diovan, Celebrex, Topamax, calcium, multivitamins, acetaminophen, and Ambien. ALLERGIES: Codeine. PHYSICAL EXAMINATION: Height 5 feet 9 inches and weight 243 pounds, blood pressure 137/80, heart rate 82, respirations 18, and temperature 97.7. On examination, gait is within normal limits and she is able to sustain a toe and heel stance without difficulty. Deep tendon reflexes 2+/4+ bilaterally symme trical in both knees and absent in both ankles. Sensation and strength are intact throughout both lower extremities. ASSESSMENT: History of recurrent disc herniation L4-5 with a right lumbar radiculopathy. PLAN: Repeat epidural steroid injection today. PROCEDURE: After obtaining informed consent, the patient was placed in the prone position. The area over the low back was prepared with chlorhexidine solution and draped in a sterile fashion. The skin and subcutaneous tissues were anesthetized with a total of 2 mL of 1% lidocaine. An 18-gauge Tuohy needle was advanced in a right paramedian approach beneath the right L4 pedicle then into the foramen. Proper localization was assured in PA and lateral views. A total of 1 mL of Omnipaque 180 showed gooddye spread along the course of the exiting nerve root with no evidence of intravascular injection during digital subtraction. A total of 80 mg of Depo-Medrol in 1 mL was followed by 1 mL of 1% lidocaine. The patient tolerated the procedure well. FOLLOWUP INSTRUCTIONS: The patient was given written followup instructions and will return to see andrew mcclellan as neededbasis. d - 04/11/2004 15:25:54 - BRAIN GALAVIZ t - 04/17/2004 05:36:46 - NEVES Voice ID - [id number] Document ID - [id number] CC: ELMRE ALLEN MD, REFERRING PHYSICIAN This document has been electronically signed by BRAIN VALDES MD on 04/20/2004 15:55:36. Evaluation - Jonnathan, Conv Caser Up - 09/05/2009 8934 EDT PAIN SERVICE PROCEDURE REPORT NAME: ED GREENBERG : 1950 MRN: [id number] DATE: 04/11/2004 OP ATTENDING: BRAIN VALDES MD FINISH[employer]: PROCEDURE: Right L4-5 transforaminal epidural steroid injection. PREPROCEDURE DIAGNOSIS: Chronic right L5 radiculopathy. POSTPROCEDURE DIAGNOSIS: Chronic right L5 radiculopathy. CHIEF COMPLAINT: Right leg and foot pain. HISTORY: This is a 54-year-old woman with a chronic right lumbar radiculopathy. I saw her most recently on January 24, 2004. We had performed a transforaminal epidural steroid injection empirically at the right L4-5 level in early December and on return in January she had near complete resolution ofher symptoms. She has had good pain relief but over the last several weeks has had gradual return ofher symptoms. She describes deep aching pain over the lumbosacral junction radiating all the way to the right lateral foot. There is associated numbness and tingling in the foot but not weakness and nobowel or bladder dysfunction. Her current pain is 7 on a scale of 0 to 10. CURRENT MEDICATIONS: Ranitidine, Lexapro, Diovan, Celebrex, Topamax, calcium, multivitamins, acetaminophen, and Ambien. ALLERGIES: Codeine. PHYSICAL EXAMINATION: Height 5 feet 9 inches and weight 243 pounds, blood pressure 137/80, heart rate 82, respirations 18, and temperature 97.7. On examination, gait is within normal limits and she is able to sustain a toe and heel stance without difficulty. Deep tendon reflexes 2+/4+ bilaterally symme trical in both knees and absent in both ankles. Sensation and strength are intact throughout both lower extremities. ASSESSMENT: History of recurrent disc herniation L4-5 with a right lumbar radiculopathy. PLAN: Repeat epidural steroid injection today. PROCEDURE: After obtaining informed consent, the patient was placed in the prone position. The area over the low back was prepared with chlorhexidine solution and draped in a sterile fashion. The skin and subcutaneous tissues were anesthetized with a total of 2 mL of 1% lidocaine. An 18-gauge Tuohy needle was advanced in a right paramedian approach beneath the right L4 pedicle then into the foramen. Proper localization was assured in PA and lateral views. A total of 1 mL of Omnipaque 180 showed gooddye spread along the course of the exiting nerve root with no evidence of intravascular injection during digital subtraction. A total of 80 mg of Depo-Medrol in 1 mL was followed by 1 mL of 1% lidocaine. The patient tolerated the procedure well. FOLLOWUP INSTRUCTIONS: The patient was given written followup instructions and will return to see andrew mcclellan as neededbasis. d - 04/11/2004 15:25:54 - BRAIN GALAVIZ t - 04/17/2004 05:36:46 - NEVES Voice ID - [id number] Document ID - [id number] CC: ELMER ALLEN MD, REFERRING PHYSICIAN This document has been electronically signed by BRAIN VALDES MD on 04/20/2004 15:55:36. documented in this encounter Care Teams Aircraft Maintenance Director Relationship Specialty Start Date End Date Elmer Allen MD PCP - General 06/08/09 05/31/10 [address] [place] [id number] documented as of this encounter
--- OUTSIDE RECORDS SUMMARY | 2021-12-21 00:41 | XMS_ITS | Encounter Summary ---
:1950 Author Organization [facility] Address [address] [place] [address] Care Team Providers Name Role Phone Unavailable Primary Care Provider Unavailable Encounter Details Date Type Department Care Team Description 12/10/2001 Hospital Encounter [facility] - Mohamud Donahue MD [facility] [address] [address] [place], [place] [address] [phone] Social History Tobacco Use Types Packs/Day Years Used Date Never Assessed Sex Assigned at Date Recorded Not on file documented as of this encounter Discharge Disposition Disposition Code Departure Means Destination Auto Discharge documented in this encounter Plan of Treatment Not on filedocumented as of this encounter Visit Diagnoses Not on filedocumented in this encounter
--- OUTSIDE RECORDS SUMMARY | 2021-12-21 00:41 | XMS_ITS | Encounter Summary ---
:1950 Author Organization [facility] Address [address] [place] [address] Care Team Providers Name Role Phone Elmer Dunn MD Primary Care Provider [phone] Encounter Details Date Type Department Care Team Description 06/30/2000 Results Only [facility] - Jr Medina MD conversion [address] [place] [address] Social History Tobacco Use Types Packs/Day Years Used Date Never Assessed Sex Assigned at Date Recorded Not on file documented as of this encounter Plan of Treatment Not on filedocumented as of this encounter Procedures Procedure Name Priority Date/Time Associated Diagnosis Comme nts CYTOPATHOLOGY Routine 06/30/2000 0:00 EST Results for this procedure are i n the results section . documented in this encounter Results CYTOPATHOLOGY (06/30/2000 0:00 EST) Pathology Report: CYTOPATHOLOGY REPORT [facility] Reports generated via electronic interface contain jennifer ginal data; however they are lacking the format of the original re port. Caution should be taken when reading/interpreting unfo rmatted reports. Name: ? SAUNDRA DHALIWAL ? Accession #: ? C : ? 1950 (Age: 50) ??F ?Collect Date: ? 06/19 Location: ? [facility] ? Receive Date : ? 07/02/2000 Provider: ?JR DUFF MD Copy to: ? Specimen/Source: ?Conventional Pap Test, Cer vix/Endocervix Last Menstrual Period: ? 06/19/00 ? SPECIMEN ADEQUACY ? Satisfactory for evaluation. GENERAL CATEGORIZATION ? Benign Cellular Changes DESCRIPTIVE DIAGNOSIS ? Reactive cellular omkar nges associated with inflammation present (includes repair). ? Document reviewed and electronically signed by: ? ISAIAH SANDOVAL MD [facility] ? Report Date: ??07/04/2000 15:22 End of Report Specimen Performing Organization Address City/State/ZIP Code Phon e Number [facility] [address] [place] [address] SERVICES [facility] [address] [place] [address] documented in this encounter Visit Diagnoses Not on filedocumented in this encounter Care Teams Staff Nurse Anesthetist Relationship Specialty Start Date End Date Elmer Dunn MD PCP - General 06/08/09 05/31/10 [address] [place] [id number] documented as of this encounter
--- OUTSIDE RECORDS SUMMARY | 2021-12-21 00:41 | XMS_ITS | Encounter Summary ---
:1950 Author Organization [facility] Address [address] [place] [address] Care Team Providers Name Role Phone Unavailable Primary Care Provider Unavailable Encounter Details Date Type Department Care Team Description 12/09/2005 Before [facility] - Roman Adams, Converted Visit Daina valdes MD (Maple) 111 [facility] [address] [place] [address] [place], [place] [phone] (Wo rk) Social History Tobacco Use Types Packs/Day Years Used Date Never Assessed Sex Assigned at Date Recorded Not on file documented as of this encounter Procedure Notes Jonnathan, Conv Annual Campaign Manager - 05/12/2009 3355 EST DIVISION OF PAIN MANAGEMENT PROCEDURE REPORT SERVICE DATE: 12/09/2005 DEVOPS DEVELOPER: Roman Adams MD PROCEDURE: Right L4-L5 transforaminal epidural steroid injection. PREPROCEDURE DIAGNOSIS: Herniated nucleus pulposus, right L4-L5, with a right L5 radiculopathy. POSTPROCEDURE DIAGNOSIS: Herniated nucleus pulposus, right L4-L5, with a right L5 radiculopathy. CHIEF COMPLAINT: Low back and right leg pain. INTERVAL HISTORY: This is a 55-year-old woman with a known herniated disk at the L4-L5 leveland recurrent radicular symptoms. I saw her in December 2004, and after a right L4-L5 transforaminal epidural steroid injection, she had near-complete resolution of her symptoms, with only some mild residual weakness in extension of the digits of the right foot. Over the last several weeks, she has had return ofher pain. She describes a deep, aching pain in the low back and right buttock radiating to the rightlateral thigh and calf with marked numbness in the right ankle and the dorsum of the right foot. Shealso has decreased strength in extension of all of the digits of the right foot, most prominently the right great toe. She has no other symptomatology. Current pain severity is 4 on a scale of 0-10. ALLERGIES: CODEINE. CURRENT MEDICATIONS: Ranitidine, Lexapro, Diovan, Topamax, CPAP, ibuprofen, Lunesta, levothyroxine, and hydrocodone. PHYSICAL EXAMINATION: Height 5 feet 9 inches, weight 248 pounds, blood pressure 138/76, heart rate 56, respiratory rate 16, and temperature 97.1. Her gait is antalgic, favoring weightbearing on the left lower extremity. Deep tendon reflexes are 2+/4+ and bilaterally symmetric in the knees absent in the ankles bilaterally. Sensation is decreased to light touch over the right lateral calf, ankle, and the dorsum of the right foot to the base of the toes. There is decreased strength to 4/5 in the right extensor hallucis longus; strength is otherwise 5/5 in plantar flexion and dorsiflexion of both feet. ASSESSMENT: Herniated nucleus pulposus, right L4-L5, with recurrent right L5 radiculopathy; good response to prior epidural steroid injection. PLAN: Right L4-L5 transforaminal epidural steroid injection. PROCEDURE NOTE: After obtaining informed consent, the patient was placed in the prone position, and the area over the low back was prepared with chlorhexidine solution and draped in sterile fashion. The skin and subcutaneous tissues were anesthetized with a total of 2 mL of 2% lidocaine. A single 15-[id number]-bpof spinal needle was advanced under fluoroscopic guidance to lie in the posterior- superior aspect of the right L4-L5 Proper location was assured in both AP and lateral views. A total of 1.5 mL of Isovue 200 was injected under live fluoroscopic guidance in the AP plane, which showed good spread along the nerve root and beneath the pedicle at the right L4 level without evidence of intravascular injection. A total of 80 mg of Depo-Medrol in 1 mL was then followed by 0.5 mL of 2% lidocaine. The patient tolerated the procedure well. FOLLOW-UP INSTRUCTIONS: The patient was given written follow-up instructions. She will contact us for repeat treatment on an as-needed basis. Signed by Roman Adams MD 12/16/2005 14:56 Lakeshia Harvey MD Roman Adams MD - Roman Adams MD A - lt Job ID: [id number] Document ID: [id number] cc: MD Corina Fisher NP documented in this encounter Plan of Treatment Not on filedocumented as of this encounter Visit Diagnoses Not on filedocumented in this encounter
--- OUTSIDE RECORDS SUMMARY | 2021-12-21 00:41 | XMS_ITS | Encounter Summary ---
:1950 Author Organization [facility] Address [address] [place] [address] Care Team Providers Name Role Phone Elmer Dunn MD Primary Care Provider [phone] Encounter Details Date Type Department Care Team Description 09/30/2005 Results Only [facility] - Jr Medina MD conversion [address] [place] [address] Social History Tobacco Use Types Packs/Day Years Used Date Never Assessed Sex Assigned at Date Recorded Not on file documented as of this encounter Plan of Treatment Not on filedocumented as of this encounter Procedures Procedure Name Priority Date/Time Associated Diagnosis Comme nts CYTOPATHOLOGY Routine 09/30/2005 0:00 EDT Results for this procedure are i n the results section . documented in this encounter Results CYTOPATHOLOGY (09/30/2005 0:00 EDT) Pathology Report: CYTOPATHOLOGY REPORT [facility] Reports generated via electronic interface contain jennifer ginal data; however they are lacking the format of the original re port. Caution should be taken when reading/interpreting unfo rmatted reports. Name: ? SAUNDRA DHALIWAL ? Accession #: ? [id number] : ? 1950 (Age: 55) ??F ?Collect Date: ? 09/16 Location: ? [facility] ? Receive Date : ? 10/01/2005 Provider: ?JR DUFF MD Copy to: ? Specimen/Source: ? ThinPrep Pap Test, Cervix/Endocervix, processed on [employer] ThinPrep Imaging System, with manual evaluation Last Menstrual Period: ? Other: ? Post menopausal bleeding ? SPECIMEN ADEQUACY ? Satisfactory for Evaluation - transformation zone component present GENERAL CATEGORIZATION ? Negative for Intraepithelial Lesion or Malignan cy INTERPRETATION ? Reactive cellular omkar nges associated with inflammation present (includes repair). ? Document reviewed and electronically signed by: ? KAYLIE GUEVARA MD ? Report Date: ??10/03/2005 19:04 End of Report Specimen Performing Organization Address City/State/ZIP Code Phon e Number [facility] [address] [place] [address] SERVICES [facility] [address] [place] [address] documented in this encounter Visit Diagnoses Not on filedocumented in this encounter Care Teams Dust Control Engineer Relationship Specialty Start Date End Date Elmer Dunn MD PCP - General 06/08/09 05/31/10 [address] [place] [phone] documented as of this encounter
--- OUTSIDE RECORDS SUMMARY | 2021-12-21 00:41 | XMS_ITS | Encounter Summary ---
:1950 Author Organization [facility] Address [address] [place] [address] Care Team Providers Name Role Phone Elmer Allen MD Primary Care Provider [phone] Encounter Details Date Type Department Care Team Description 11/11/2006 Results Only [facility] - Jr Medina MD conversion [address] [place] [address] Social History Tobacco Use Types Packs/Day Years Used Date Never Assessed Sex Assigned at Date Recorded Not on file documented as of this encounter Plan of Treatment Not on filedocumented as of this encounter Procedures Procedure Name Priority Date/Time Associated Diagnosis Comme nts SURGICAL PATHOLOGY Routine 11/11/2006 0:00 EDT Re sults for this procedure are i n the results section. documented in this encounter Results SURGICAL PATHOLOGY (11/11/2006 0:00 EDT) Pathology Report: SURGICAL PATHOLOGY REPORT [facility] Reports generated via electronic interface contain jennifer ginal data; LAB however they are lacking the format of the original re port. Caution should be taken when reading/interpreting unfo rmatted reports. Name: ? SAUNDRA DHALIWAL ? Accession #: ? [id number] ? : ? 1950 (Age: 56) ??F ? Collect Date: ? 11/11/2006 ? Location: ? [facility] ? Receive Date: ? 007 ? Provider: JR DUFF MD Copy to: ELMER ALLEN MD ? Final Pathologic Diagnosis: ? Endometrium, biopsy: - Minute fragments of endocervical and endometri al glands with admixed mucus, insufficient for ??pathologic diagnosis. ??See comment. Comment: ? Deeper sections of th e specimen have been reviewed. ??(Dr. Cloud)/[facility] Document reviewed and electronically signed by: Cayden Cloud MD Report ??Date: 11/14/2006 11:08 By the signature above, the attending physician certif ies that he/she has personally conducted a gross and/or microscopic examin ation of the described specimens and rendered or confirmed the above diagnosi s. Specimen(s) Received: ? Endo bx Clinical History: ? Post menopausal bleeding; LMP; 2002 Gross Description: ? Received in formalin labelled Harvinder and end ometrium is a 1 cc aggregate of white focally light grossman sof t mucinous material which is submitted entirely in one cassette. (Fer Wallace/[facility] End of Report Specimen Performing Organization Address City/State/ZIP Code Phon e Number [facility] [address] [place] [address] SERVICES [facility] [address] [place] [address] documented in this encounter Visit Diagnoses Not on filedocumented in this encounter Care Teams Dispensary Clerk Relationship Specialty Start Date End Date Elmer Allen MD PCP - General 06/08/09 05/31/10 [address] [place] [address] documented as of this encounter
--- OUTSIDE RECORDS SUMMARY | 2021-12-21 00:41 | XMS_ITS | Encounter Summary ---
:1950 Author Organization [facility] Address [address] [place] [address] Care Team Providers Name Role Phone Elmer Dunn MD Primary Care Provider [phone] Encounter Details Date Type Department Care Team Description 04/13/2007 Results Only [facility] - Hao Bran MD conversion [address] [place], [place] [address] [place] [address] [phone] Social History Tobacco Use Types Packs/Day Years Used Date Never Assessed Sex Assigned at Date Recorded Not on file documented as of this encounter Plan of Treatment Not on filedocumented as of this encounter Procedures Procedure Name Priority Date/Time Associated Diagnosis Comme nts SURGICAL PATHOLOGY Routine 04/13/2007 0:00 EST Re sults for this procedure are i n the results section. documented in this encounter Results SURGICAL PATHOLOGY (04/13/2007 0:00 EST) Pathology Report: SURGICAL PATHOLOGY REPORT [facility] Reports generated via electronic interface contain jennifer ginal data; LAB however they are lacking the format of the original re port. Caution should be taken when reading/interpreting unfo rmatted reports. Name: ? ED DHALIWAL ? Accession #: ? [id number] ? : ? 1950 (Age: 57) ??F ? Collect Date: ? 04/13/2007 ? Location: ? [facility] ? Receive Date: ? 007 ? Provider: HAO CHOW MD Copy to: ? Final Pathologic Diagnosis: ? Gallbladder, cholecystectomy: 1. ?Gallbladder with surface ischemic omkar nges. 2. ? Cholelithiasis. Document reviewed and electronically signed by: Yusuf Livingston MD Report ??Date: 04/15/2007 14:55 By the signature above, the attending physician certif ies that he/she has personally conducted a gross and/or microscopic examin ation of the described specimens and rendered or confirmed the above diagnosi s. Specimen(s) Received: ? Gallbladder Clinical History: ? Lap damon; cholelithiasis; H/O biliary colic Gross Description: ? Received in formalin labelled Harvinder daigle gallbladder is a markedly fragmented 6.5 cm in length by 4.0 cm in diameter gallbladder. ??The serosa is grossman and focally bile stained, smooth, and glistening. ??Minimal residual cholelith fragments are contained within the lumen, devoid of bile. ??Numerous multifaceted mixed yellow-brown choleliths ranging fro m 0.4 to 1.0 cm in greatest dimension are received in the s pecimen container. ??No choleliths are present within the 0.8 cm in length by 0.2 cm in diameter patent cystic duct. The red-brown mucosa is markedly eroded and the wall ranges from less than 0.1 to 0.1 cm thick. ??A represe ntative section of the fundus, body, and cystic duct margin (en face) are submitted in one cassette. ??(Delicia Thorpe/hernan End of Report Specimen Performing Organization Address City/State/ZIP Code Phon e Number [facility] [address] [place] [address] SERVICES [facility] [address] [place] [address] documented in this encounter Visit Diagnoses Not on filedocumented in this encounter Care Teams Citizenship Instructor Relationship Specialty Start Date End Date Elmer Dunn MD PCP - General 06/08/09 05/31/[address] [place] [phone] documented as of this encounter
--- OUTSIDE RECORDS SUMMARY | 2021-12-21 00:41 | XMS_ITS | Encounter Summary ---
:1950 Author Organization [facility] Address [address] [place] [address] Care Team Providers Name Role Phone Unavailable Primary Care Provider Unavailable Encounter Details Date Type Department Care Team Description 04/11/2004 Hospital Encounter [facility] - Larry Adams, Daina valdes MD [address] [address] [place], [place] [phone] (Wo rk) Social History Tobacco Use Types [...]
--- OUTSIDE RECORDS SUMMARY | 2021-12-21 00:41 | XMS_ITS | Encounter Summary ---
:1950 Author Organization [facility] Address [address] [place] [address] Care Team Providers Name Role Phone Unavailable Primary Care Provider Unavailable Encounter Details Date Type Department Care Team Description 03/30/2007 Before [facility] - Selina Luis Converted Visit Daina Orellana MD (Daina) [address] [place] [address] [address] [place] [phone] (Wo rk) Social History Tobacco Use Types Packs/Day Years Used Date Never Assessed Sex Assigned at Date Recorded Not on file documented as of this encounter Consult Notes Ollie Luis - 03/28/2009 0142 EST DIVISION OF SURGICAL ONCOLOGY - [facility] CONSULTATION - 03/30/2007 HISTORY AND PHYSICAL REASON FOR CONSULTATION This is a 57-year-old female seen in consultation for Dr. Hao Scruggs. 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 She is here today to discuss management of this tumor to include potential surgical resection. HISTORY OF PRESENT ILLNESS This 57-year-old female is somewhat of a vague historian, but basically she comes in with an intermediate to longstanding history of complaints of upper abdominal pain and diarrhea. She also has a history of moderate weight loss of approximately 20 pounds since January 2006. In looking through referral notes, she was seen by Dr. Scruggs in late April 2006 for a history of epigastric abdominal pain. She had known gall stones at the time but her symptoms were not particularly suggestive of biliary colic. From reviewing his notes, Dr. Scruggs mentioned upper abdominal pain atthe ventral area between her umbilicus and xiphoid. She had been on Tagamet at the time. She was also complaining of somewhat watery diarrhea. Apparently, this was worked up, and all of her stool cultures were negative. She then underwent an upper endoscopy in late February 2007. The endoscopy was noted for a small polyp in the gastric fundic/body junction. He noted at that time it was approximately 10 mm insize. Pathology was reviewed here, and this was noted to be a neuroendocrine tumor. They did special immunohistochemistry stains including chromogranin and keratin AE1 through AE3, and that stained positive. Therewas one area that was suspicious for lymphovascular invasion. The patient also had a CT scan completed on March 10, 2007. CT scan was reviewed today in the multidisciplinary conference. 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 There wasno evidence of acute cholecystitis. There was certainly no evidence of liver metastases, and the small lesion was not visible in the stomach. PAST MEDICAL HISTORY Noted for a history of arthritis, hypertension, and hypothyroidism. She has history of depression inthe distant past as well as anxiety disorder. She describes the depression as situational at the time due to the of her mother and at a later time due to a separation from her . She also had some hip surgery. She also describessleep apnea, lumbar radiculopathy, L4, L5, and S1, and more prominently a history of deep venous thrombosis. Of note a DVT occurred after , and a second episode was just a year ago, which sounds like a calf vein thrombosis. SURGICAL HISTORY Hammertoe surgery of the left foot in 2004, a in 1986, and L4 disk surgery in 1975. CURRENT MEDICATIONS 1. Omeprazole 20 mg one p.o. twice daily. 2. Lovenox daily right now. 3. Imodium AD as needed. 4. Topamax 100 mg one each a.m. and two tabs in the p.m. 5. Simvastatin 20 mg once a day. 6. Diovan 160 mg daily. 7. Lunesta 2 mg each evening. 8. Lexapro 10 mg daily for depression. 9. Levothyroxine 25 mcg once daily. 10. Multivitamin once a day. 11. Flonase nasal spray one twice daily. 12. Calcium 500 mg p.o. twice daily. 13. Flexeril 10 mg p.o. three times daily p.r.n. ALLERGIES CODEINE. SOCIAL HISTORY The patient is . She comes accompanied by a friend. She is actively employed. REVIEW OF SYSTEMS Positive for loss of appetite and an approximately 20-pound weight loss since January, also positive for diarrhea which she does not describe as watery explosive and does not appear to be related to meals. She also has lower abdominal pain, which is sort of crampy in nature, and she states this is better once she moves her bowels. She denies any muscle weakness, fevers, chills, nausea, or vomiting.She denies any headaches, tachycardia, or any new masses. FAMILY HISTORY She believes her paternal grandmother in her sleep.She states she recalls that this person did have a large goiter, but she is not certain whether this could have been thyroid cancer. That grandmother had 12 offspring, none with history that she is aware of for endocrine neoplasms to suggest a MEN syndrome. She also states her father had part of his stomach removed, but she does not know if thiswas for benign reasons. There definitely does not appear to be any strong family history of cancer. OBJECTIVE On physical examination she is a moderately-obese female in no acute distress. She describes her pain level as a 3/10. Vital signs: Weight 235 pounds, temperature 35.5, BP 142/80, pulse 60, and respirations 16. HEENT: Normocephalic. Pupils are equal round and reactive to light and accommodation. Extraocular movements are intact. There is no evidence of jugular venous distention or carotid bruits. She has no evidence of any palpable thyroid masses. There is no evidence of supraclavicular or cervical adenopathy. Back: Nontender. Chest: Lungs are clear to auscultation. Cardiac: Regular rate and rhythm. Abdomen: Soft, nontender. I do not appreciate any palpable masses. She has extensive ecchymosis of her abdomen secondary to her Lovenox. She has a well- healed low transverse incision, consistent with her . Extremities: Without cyanosis, clubbing or edema. Neurologic: Cranial nerves 2-12 are intact. She has normal motor strength throughout and normal balance and sensation. By pathology this patient appears to have a surprise diagnosis of a neuroendocrine tumor of the stomach. There are three described types of neuroendocrine tumors. Type 1 is traditionally associated with atrophic gastritis and is felt to be secondary to hypergastrinemia. Type 2 is for gastrin-producingneoplasms associated with Shelly Plunkett syndrome and MEN I syndrome. Type 3 are sporadic. Thus far, it does not appear that the patient has a type 1 tumor, as she has no evidence of pernicious anemia. Regarding type 2, which is associated with MEN syndrome, she has no history to suggest an MEN type 1syndrome. Where her story does not fit in is for type 3 tumors, which are sporadic. They are usuallysymptomatic at presentation and are fairly large, often T1 or T2 lesions. Her lesion really appears to have been discovered by accident due to the fact that she was having upper abdominal pain. I have discussed the differential with Dr. Wong Frazier. One of the major distinguishing factors is an elevated serum basal gastrin level greater than 250 picograms per milliliter. As such, we will geta serum gastrin level. To see whether or not this is a functional tumor, we will also get some additional tumor markers which can be elevated in neuroendocrine tumors; specifically, we will order the followin. Gastrin level. 2. Insulin level. 3. Proinsulin level. 4. Vasoactive intestinal peptide (VIP) level. 5. Pancreatic polypeptide level. 6. Glucagon level. 7. Antiparietal antibody level. 8. A 24-hour urine collection for urine 5HIA. Also of note, I did attend the patient's endoscopy today as it was being done by Dr. Frazier. This definitely appears to be a small polypoid lesion. They attempted to extract it entirely via a polypectomy, and as such, it is possible that we will end up following her via endoscopy. Many of these decisions will need to be made once the hormone levels are back as well as the pathology from the polypectomy today. ASSESSMENT/PLAN This is a 57-year-old female with a recently-identified,very small (approximately 1 cm), neuroendocrine tumor of the gastric fundic/body junction. It is possible that this has been entirely removed by polypectomy this morning by Dr. Frazier. To better assess whether it has functional status, we will draw the levels noted above. If the patient has a sporadic-type tumor, surgery is generally recommended for a Type 3 neuroendocrine tumor, which would be associated with normal gastrin level. I have spoken with Dr. Frazier today, and we will schedule her followup once we are better aware of whether or not we plan to follow this via endoscopy or whether or not surgery will be recommended. Signed by Selina Luis MD 04/17/2007 15:01 Selina Luis MD Senior Property Accountant, Surgical Oncology [facility] - Selina Luis MD - [facility] Job ID: [id number] Doc ID: [id number] cc: MD Hao Fisher MD Richard S Zubarik, MD documented in this encounter Plan of Treatment Not on filedocumented as of this encounter Visit Diagnoses Not on filedocumented in this encounter
--- OUTSIDE RECORDS SUMMARY | 2021-12-21 00:41 | XMS_ITS | Encounter Summary ---
:1950 Author Organization [facility] Address [address] [place] [address] Care Team Providers Name Role Phone Elmer Dunn MD Primary Care Provider [phone] Encounter Details Date Type Department Care Team Description 04/26/2010 Results Only [facility] Martha Smith MD Laboratory Services - [facility] [address] [place] [address] [place] [address] [phone] Social History Tobacco Use Types Packs/Day Years Used Date Never Assessed Sex Assigned at Date Recorded Not on file documented as of this encounter Plan of Treatment Not on filedocumented as of this encounter Procedures Procedure Name Priority Date/Time Associated Diagnosis Comme nts CYTOPATHOLOGY Routine 04/26/2010 0:00 EST Results for this procedure are i n the results section . documented in this encounter Results CYTOPATHOLOGY (04/26/2010 0:00 EST) Pathology Report: CYTOPATHOLOGY REPORT ? [facility] ? LAB Reports generated via electr onic interface contain original data; ? however they are lacking the format of the original report. ? Caution should be taken when reading/interpreting unformatted reports. ? Name: ? SAUNDRA DHALIWAL ? Accession #: ? [id number] ? : ? 1950 (Age: 60) ??F ?Collect Date: ? 04/26/2010 ? Location: ? [facility] ? R eceive Date: ? 04/27/2010 ? Provider: MARTHA READY MD ? Copy to: ? Final Report ? SPECIMEN ADEQUACY ? Satisfactory for Eval uation ? - transformation zone compon ent present ? GENERAL CATEGORIZATION ? Negative for Intraepi thelial Lesion or Malignancy ? Last Menstural Period: 2002 ? Menstural/ Status: ??Menopausal: 2002 ? Specimen/Source: ??Pap Test, Cervix/Endocervix, ThinPrep Imaging System with ? manual evaluation ? Document reviewed and electr onically signed by: ? Linda Mallory CT(A SCP) ? Report ??Date: 12/15/ 2010 11:21 ? HPV with Pap Test ? Date Ordered: ? 1 07/03/2009 ? Status: ?? Signed Out ?Date Complete: ? 05/07/2010 ? By: ??System Interface ? Date Reported: ? 05/07/2010 ? Interpretation ? RESULT: Negative for HPV typ es 16, 18, 31, 33, 35, 39, 45, 51, 52, ? 56, 58, 59, and 68. ? Comments ? Document reviewed and electr onically signed by: ? System Interface ? Report date: 12/20/20 10 ? By the signature above, the attending physician certifies that he/she has ? personally conducted a gross and/or microscopic examination of the described ? specimens and rendered or co nfirmed the above diagnosis. ? End of Report ? Specimen Performing Organization Address City/State/ZIP Code Phon e Number [facility] [address] [place] [address] SERVICES [facility] [address] [place] [address] documented in this encounter Visit Diagnoses Not on filedocumented in this encounter Care Teams Senior Administrator Support Relationship Specialty Start Date End Date Elmer Dunn MD PCP - General 06/08/09 05/31/[address] [place] [phone] documented as of this encounter
--- OUTSIDE RECORDS SUMMARY | 2021-12-21 00:41 | XMS_ITS | Encounter Summary ---
:1950 Author Organization [facility] Address [address] [place] [address] Care Team Providers Name Role Phone Elmer Dunn MD Primary Care Provider [phone] Encounter Details Date Type Department Care Team Description 03/30/2007 Results Only *[facility] Prateek Benites, Gastroenterology - [facility] [address] [place] [address] [address]ilion, [place] [phone] (Wo rk) Social History Tobacco Use Types Packs/Day Years Used Date Never Assessed Sex Assigned at Date Recorded Not on file documented as of this encounter Plan of Treatment Not on filedocumented as of this encounter Procedures Procedure Name Priority Date/Time Associated Comments Diagnosis PANCREATIC Routine 03/30/2007 12:46 Results for this POLYPEPTIDE, PLASMA EST procedur e are in the results section. HOLD PURPLE TOP Routine 03/30/2007 12:46 Results for this EST procedure are i n the results section. VASOACTIVE INTESTINAL Routine 03/30/2007 12:46 Re sults for this POLYPEPTIDE EST procedure are i n the results section. PROINSULIN Routine 03/30/2007 12:46 Results for this EST procedure are i n the results section. GLUCAGON Routine 03/30/2007 12:46 Results for this EST procedure are i n the results section. INSULIN Routine 03/30/2007 12:46 Results for this EST procedure are i n the results section. PARIETAL CELL Routine 03/30/2007 12:46 Results fo r this ANTIBODY EST procedure are i n the results section. GASTRIN, SERUM Routine 03/30/2007 12:46 Results f or this EST procedure are i n the results section. SURGICAL PATHOLOGY Routine 03/30/2007 0:00 Result s for this EST procedure are i n the results section. documented in this encounter Results INSULIN (03/30/2007 12:46 EST) Pathologist Sig nature Insulin 8.4Comment: Fasting 6.0 - 27.0 [facility] reference range uIU/ml Specimen Performing Organization Address City/[facility]/ZIP [facility] Phon e Number [facility] [address] [place] [address] SERVICES [facility] [address] [place] [address] VASOACTIVE INTESTINAL POLYPEPTIDE (03/30/2007 12:46 EST) Vasoactive 28Reference range: <75 [facility] Intestinal Unit: pg/mL Polypeptide Performed or Referred by: [facility] Dpt of Lab Med and Path, [address] ?? [place] [address], Lab Dir: Jorge lockwood III, MD Specimen Performing Organization Address [facility] Phon e Number [facility] [address] [place] [address] SERVICES [facility] [address] [place] [address] PARIETAL CELL ANTIBODY (03/30/2007 12:46 EST) Pathologist Sig nature Parietal Cell Ab <20 <20 Dils [facility] Specimen Performing Organization Address City/[facility] Phon e Number [facility] [address] [place] [address] SERVICES [facility] [address] [place] [address] PROINSULIN (03/30/2007 12:46 EST) Pathologist Sig nature Proinsulin 9.6Reference range: 3 to 20 [facility] Unit: pmol/L Performed or Referred by: [facility] Dpt of Lab Med a nd Path, [address] ?? [place] [address], Lab Dir: Jorge lockwood III, MD Specimen Performing Organization Address City/[facility]/ZIP [facility] Phon e Number [facility] [address] [place] [address] SERVICES [facility] [address] [place] [address] PANCREATIC POLYPEPTIDE, PLASMA (03/30/2007 12:46 EST) Pancreatic 62Reference range: <291 (50 to 59 years) [facility] Polypeptide Unit: pg/mL Performed or Referred by: [facility] Dpt of Lab Med a nd Path, [address] ?? [place] [address], Lab Dir: Jorge lockwood III, MD Specimen Performing Organization Address City/[facility]/ZIP [facility] Phon e Number [facility] [address] [place] [address] SERVICES [facility] [address] [place] [address] HOLD PURPLE TOP (03/30/2007 12:46 EST) Hold Purple Top EDTA for hematology will be discarded after 48 hours, differential not available after 12 [facility] hours. Specimen Performing Organization Address [facility] Phon e Number [facility] [address] [place] [address] SERVICES [facility] [address] [place] [address] (ABNORMAL) GLUCAGON (03/30/2007 12:46 EST) Pathologist Sig nature Glucagon 69Reference range: < or = 60 [facility] Unit: pg/mL Performed or Referred by: [facility] Dpt of Lab Med a nd Path, [address] ?? [place] [address], Lab Dir: Jorge lockwood III, MD (H) Specimen Performing Organization Address [facility] Phon e Number [facility] [address] [place] [phone] SERVICES [facility] [address] [place] [address] GASTRIN, SERUM (03/30/2007 12:46 EST) Pathologist Sig nature Gastrin 20Unit: pg/mL(Note) [facility] -- REFERENCE VALUE -- ? <100 ? Reference ranges valid for ? >= 8 hour fast. ? Performed by: [facility] Dp t Lab Med and Path [address] , [address], [place] [address], Lab Dir: ??Jorge Nguyen ? III, M.D. ? Specimen Performing Organization Address City/[facility] Phon e Number [facility] [address] [place] [address] SERVICES [facility] [address] [place] [address] SURGICAL PATHOLOGY (03/30/2007 0:00 EST) Pathology Report: SURGICAL PATHOLOGY REPORT [facility] Reports generated via electronic interface contain jennifer ginal data; LAB however they are lacking the format of the original re port. Caution should be taken when reading/interpreting unfo rmatted reports. Name: ? SAUNDRA DHALIWAL ? Accession #: ? [id number] ? : ? 1950 (Age: 57) ??F ? Collect Date: ? 03/30/2007 ? Location: ? [facility] ? Receive Date: ? 007 ? Provider: PRATEEK BENITES MD Copy to: THAIS CHOW MD ? Final Pathologic Diagnosis: A. ?Stomach, body, polyp, biopsy: 1. 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 ??See comment. ? - Tumor appears confined to mucosa and submucos a. - Lymphovascular invasion is not identified. - Surgical resection margin negative for tumor. ? B. ?? Stomach, antrum, biopsy: ?1. ?? Antral mucosa with reactive foveolar hyperplasia. ??See comment. ? C. ?? Stomach, body, polypectomy: ?1. ?? Fundic gland polyp with reactive epithelial changes and focal acute inflammation. ? See comment. ? D. ?? Stomach, fundus, biopsy: ?1. ?? Fundic mucosa with reactive epith elial changes. Comment: ? Banana Ripening Room Supervisor sections of (A) and (C) have bee n reviewed at intradepartmental consultation conference. (Dr. Angelic rojas)/[facility] Document reviewed and electronically signed by: BERNICE FELICIANO MD Report ??Date: 04/01/2007 16:28 By the signature above, the attending physician certif ies that he/she has personally conducted a gross and/or microscopic examin ation of the described specimens and rendered or confirmed the above diagnosi s. Specimen(s) Received: A. ?Gastric body large lesion B. ? Antrum polyps C. ? Gastric body small polyp D. ? Fundic polys x 2 Clinical History: ? 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 Received in Hollande' s fixative labelled Harvinder and gastric body polyp is a grossman-pink 0.9 x 0.8 x 0.5 cm tissue. ??The cut marisol faces are grossman-simmons and homogeneous. ??The specimen is trisected and entirely submitted as (A). Received in Hollande's fixat patrick labelled Harvinder and gastric antrum biopsy is 0.5 x 0.2 x 0.2 cm tissue submitted as (B). Received in Hollande's fixat patrick labelled Harvinder and small gastric body polyp is a grossman-pink 0.5 x 0.2 x 0.2 cm tissue submitted as ( C). Received in Hollande's fixat patrick labelled Harvinder and gastric fundus are three grossman-pink tissues ranging from 0.3 x 0.2 x 0.2 cm to 0.6 x 0.2 x 0.2 cm. ??The specimen is entirely submitted as (D). ??(Ree Vial) /mpl End of Report Specimen Performing Organization Address City/State/ZIP Code Phon e Number [facility] [address] [place] [address] SERVICES [facility] [address] [place] [address] documented in this encounter Visit Diagnoses Not on filedocumented in this encounter Care Teams Composing Machine Operator/Tender Relationship Specialty Start Date End Date Elmer Dunn MD PCP - General 06/08/09 05/31/10 [address] [place] [phone] documented as of this encounter
--- OUTSIDE RECORDS SUMMARY | 2021-12-21 00:41 | XMS_ITS | Encounter Summary ---
:1950 Author Organization [facility] Address [address] [place] [address] Care Team Providers Name Role Phone Elmer Allen MD Primary Care Provider [phone] Encounter Details Date Type Department Care Team Description 09/27/2003 Results Only [facility] Medina MD conversion [address] [place] [address] Social History Tobacco Use Types Packs/Day Years Used Date Never Assessed Sex Assigned at Date Recorded Not on file documented as of this encounter Plan of Treatment Not on filedocumented as of this encounter Procedures Procedure Name Priority Date/Time Associated Diagnosis Comme nts SURGICAL PATHOLOGY Routine 09/27/2003 0:00 EDT Re sults for this procedure are i n the results section. documented in this encounter Results SURGICAL PATHOLOGY (09/27/2003 0:00 EDT) Pathology Report: SURGICAL PATHOLOGY REPORT [facility] Reports generated via electronic interface contain jennifer ginal data; LAB however they are lacking the format of the original re port. Caution should be taken when reading/interpreting unfo rmatted reports. Name: ? SAUNDRA DHALIWAL ? Accession #: ? [id number] ? : ? 1950 (Age: 53) ??F ? Collect Date: ? 09/27/2003 ? Location: ? [facility] ? Receive Date: ? 004 ? Provider: JR DUFF MD Copy to: ELMER ALLEN MD ? Final Pathologic Diagnosis: A. ?Endocervix, curettings: 1. ?Fragments of benign endocervical tiss ue. 2. ?Fragments of inactive endometrium wit h breakdown changes. B. ?Endometrium, curettings: 1. ?Fragments of adenomyoma. 2. ?Fragments of inactive and secretory e ndometrium with tubal metaplasia and breakdown changes. ??See comment. Comment: ? This case was reviewe d at the intradepartmental consultation conference. (Dr. Adams)/[facility] Document reviewed and electronically signed by: Santi dAams MD Report ??Date: 09/29/2003 16:57 By the signature above, the attending physician certif ies that he/she has personally conducted a gross and/or microscopic examin ation of the described specimens and rendered or confirmed the above diagnosi s. Specimen(s) Received: A. ?Endocervical curettings (#1) B. ?Endometrial curettings/polyp (#2) Clinical History: ? Profuse postmenopausal bleeding; LMP: ??03/21 Gross Description: ? Received in formalin labelled HarveyLacroix a nd #1 ??endocervical curettings are 2.0 cc' s of clotted blo od and mucus admixed with fragments of red-brown tissue. ??The specimen is submitted entirely as (A). Received in formalin shreyas d HarvmayraLacroix and ' #2 ??endometrial curettings are 2.5 cc' s of clotted blood and blood-tinged mucus admixed with multiple fragments of pink-grossman tissue . ??The specimen is submitted entirely as (B1). ??Also received are five larger por tions of firm, grossman-pink, rubbery and nodular tissue which range in size from 0.5 x 0.5 x 0.3 cm up to 1.8 x 1.8 x 1.0 cm. ??The largest specimen has an iden tifiable margin. ??The smaller portions of tissue are submitted intact as (B2). ?? The largest specimen is inked and serially sectioned and submitted entirely as (B3) and (B4). ??(Sekou Lacey)/luis ?? End of Report Specimen Performing Organization Address City/State/ZIP Code Phon e Number [facility] [address] [place] [address] SERVICES [facility] [address] [place] [address] documented in this encounter Visit Diagnoses Not on filedocumented in this encounter Care Teams Second Time Worker Relationship Specialty Start Date End Date Elmer Allen MD PCP - General 06/08/09 05/31/10 [address] [place] [phone] documented as of this encounter
--- OUTSIDE RECORDS SUMMARY | 2021-12-21 00:41 | XMS_ITS | Encounter Summary ---
:1950 Author Organization [facility] Address [address] [place] [address] Care Team Providers Name Role Phone Unavailable Primary Care Provider Unavailable Encounter Details Date Type Department Care Team Description 03/25/2007 Before [facility] - Sneha Marion RN Converted Visit [facility] conversion [address] [facility] [address] [place] [address] [place] [address] [phone] Social History Tobacco Use Types Packs/Day Years Used Date Never Assessed Sex Assigned at Date Recorded Not on file documented as of this encounter Progress Notes Maria Marion - 03/29/2009 1412 EST [facility] TREATMENT SUMMARY April 03, 2007 Hao Scruggs MD [address] Scruggs, Your patient, Saundra Blanton, was seen in the [facility] GI Interdisciplinary clinic on March 30, 2007. 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 EMR was performed during endoscopic ultrasound and margins are negative for tumor. We will awaitresults of serum tumor markers to help distinguish what type of gastric endocrine tumor this is. It is anticipated thatMs. Blanton will be followed endoscopically in the future. The primary physician managing your patients future cancer care is Dr. El Frazier. The nurse care navigator who will assist your patient in education, treatment, scheduling and follow-up is Maria Marion, [phone]. Please do not hesitate to contact Dr. El Frazier or Maria Marion if you have any concerns or questions regarding the treatment plan outlined above. Sincerely, Signed by Maria Marion RN 04/03/2007 17:05 Caprice Morse RN Maria Marion RN - Maria Marion RN [facility] Job ID: [id number] Document ID: [id number] cc: MD Elmer Fragoso MD Martin Walko, MD Richard S Zubarik, MD \* MERGEFORMAT Maria Marion RN - Maria Marion RN [facility] Job ID: [id number] Document ID: [id number] cc: MD Elmer Fragoso MD Martin Walko, MD Richard S Zubarik, MD documented in this encounter Plan of Treatment Not on filedocumented as of this encounter Visit Diagnoses Evaluation - Maria Marion - 03/28/2009 0052 EST [facility] EVALUATION March 25, 2007 [place] [address] Scruggs, Thank you for your referral of Saundra Blanton to the [facility] Interdisciplinary clinic. To complete necessary staging studies for their newly diagnosed gastric neuroendocrine tumor, the following appointments have been scheduled. Endoscopic ultrasound March 30, 2007 8 a.m. Ms. Blanton is also scheduled to be seen in our interdisciplinary clinic on March 30, 2007 by the following physicians, nurses and ancillary staff: Nurse Senior Supplier Quality Engineer Maria Marion RN March 30, 2007 Surgical Oncologist Ollie Luis MD March 30, 2007 10:30 a.m. The nurse care navigator for your patients is Maria Marion, [phone]. Please fax all pertinent information (recent clinic notes, radiology reports) to fax # [phone]. We look forward to providing your patient with efficient, high quality, interdisciplinary cancer care during their visit to the [facility]. We appreciate your confidence in our team and look forward to working with you and your patient. Sincerely, Signed by Maria Marion RN 03/26/2007 10:44 Dictated by: Maria Marion RN - DEEPA Marion P - lm Job ID: [id number] Document ID: [id number] cc: MD Hao Fisher MD Richard S Zubarik, MD Martin Walko, MD Richard S Zubarik, MD documented in this encounter
--- OUTSIDE RECORDS SUMMARY | 2021-12-21 00:41 | XMS_ITS | Encounter Summary ---
:1950 Author Organization [facility] Address [address] [place] [address] Care Team Providers Name Role Phone Elmer Dunn MD Primary Care Provider [phone] Encounter Details Date Type Department Care Team Description 09/15/2003 Results Only [facility] Medina MD conversion [address] [place] [address] Social History Tobacco Use Types Packs/Day Years Used Date Never Assessed Sex Assigned at Date Recorded Not on file documented as of this encounter Plan of Treatment Not on filedocumented as of this encounter Procedures Procedure Name Priority Date/Time Associated Diagnosis Comme nts CYTOPATHOLOGY Routine 09/15/2003 0:00 EDT Results for this procedure are i n the results section . documented in this encounter Results CYTOPATHOLOGY (09/15/2003 0:00 EDT) Pathology Report: CYTOPATHOLOGY REPORT [facility] Reports generated via electronic interface contain jennifer ginal data; however they are lacking the format of the original re port. Caution should be taken when reading/interpreting unfo rmatted reports. Name: ? SAUNDRA DHALIWAL ? Accession #: ? [id number] : ? 1950 (Age: 53) ??F ?Collect Date: ? 08/18 Location: ? [facility] ? Receive Date : ? 09/16/2003 Provider: ?JR DUFF MD Copy to: ? Specimen/Source: ?ThinPrep Pap Test, Cervix/ Endocervix Last Menstrual Period: ? Treatment History: ? Miscellaneous treatment: neg endo bx. Other: ? Post menopausal bleeding ? SPECIMEN ADEQUACY ? Satisfactory for Evaluation - transformation zone component present GENERAL CATEGORIZATION ? Negative for Intraepithelial Lesion or Malignan cy ? Document reviewed and electronically signed by: ? FILOMENA Claire(ASCP) ? Report Date: ??09/21/2003 16:15 End of Report Specimen Performing Organization Address City/State/ZIP Code Phon e Number [facility] [address] [place] [address] SERVICES [facility] [address] [place] [address] documented in this encounter Visit Diagnoses Not on filedocumented in this encounter Care Teams Clinical Trials Manager Relationship Specialty Start Date End Date Elmer Dunn MD PCP - General 06/08/09 05/31/10 [address] [place] [phone] documented as of this encounter
--- OUTSIDE RECORDS SUMMARY | 2021-12-21 00:41 | XMS_ITS | Encounter Summary ---
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 - [address] (Primary D x) [address] [place] [address] [address], [place] [id number] (Wo rk) Social History Tobacco Use Types Packs/Day Years Used Date Never Assessed Sex Assigned at Date Recorded Not on file documented as of this encounter Last Filed Vital Signs Vital Sign Reading Time Taken Comments Blood Pressure 155/77 12/20/2011 1105 EDT Pulse 76 12/20/2011 1105 EDT Temperature 36.4 ??C (97.6 ??F) 12/20/2011 1105 EDT Respiratory Rate 16 12/20/2011 1105 EDT Oxygen Saturation - - Inhaled Oxygen Concentration - - Weight 111.4 kg (245 lb 8 oz) 12/20/2011 1105 EDT Height 175.5 cm (5' 9.09) 12/20/2011 1105 EDT Body Mass Index 36.16 12/20/2011 1105 EDT documented in this encounter Patient Instructions Patient InstructionsSuri Roca NP - 12/20/2011 11:46 EDT 1) Remain off coumadin until your follow-up appt on January 12 at 4:[address] Lizeth Mccullough 2) Please seek medical attention for any new onset calf or leg pain, swelling, shortness of breath or chest pain while off your coumadin. THROMBOSIS AND HEMOSTASIS PROGRAM Post-Thrombotic Syndrome Patient Teaching Guide Anatomy Veins carry blood back to the heart. Our legs have 3 systems of veins: 1. Deep veins- bring blood from the muscles. 2. Superficial veins- bring blood from the skin. 3. Perforating veins- connect 1 and 2. How Veins Work When we walk or exercise, the pumping action of the calf muscles helps push blood uphill out of the legs to the heart. Veins also have valves that open and close as we breath. Healthy valves close tightly, prevent blood from going backward down the leg, and are called competent. Damaged valves do not close completely, allow blood to go backward toward the foot, and are called incompetent. This is called reflux. Causes Of Chronic Venous Disease Previous vein injury, blood clots or inflammation (phlebitis). 1. Occupations requiring long periods of standing or sitting. 2. Increased pressure on veins, obesity, , tumor. 3. Hormonal factors in females. 4. Family tendency to have varicose veins. Symptoms 1. Leg swelling, especially around ankles in the afternoon or evening. 2. Aching or feeling of heaviness in the calves. 3. Dry, scaly skin with brown skin discoloration from mid-calf to the foot. 4. Bulging varicose veins or bluish-red spider shaped veins on thigh or lower legs. 5. Open, draining ulcers around the ankles or lower leg. Ulcers Constant swelling of the lower leg raises the pressure on the skin and lowers the oxygen to the skin. Over time; the skin becomes brittle and breaks down into an open sore or ulcer. Venous ulcers usually have large amount of drainage and may lead to skin infection. Testing Duplex Scan Ultrasound test which shows a picture of the veins on a television screen. The technologist will look and listen to the flow of blood in the veins. Blood clots and damage to the veins may be identifiedwith ultrasound images. Medical and Surgical Treatment Your care provider may recommend one or more of the followin. Compression support to legs-Unna boots, nuzhat bandages, support stockings. 2. Antibiotics if infection is present. 3. Pain medications for discomfort. 4. Medications to reduce swelling and control blood pressure. 5. Exercise, smoking cessation, and weight control problems. 6. Surgery- removal of veins (stripping and ligation), sclerotherapy (saline injections into the spider veins), or skin graft over ulcers. What you can do to help 1. Prevent injury to legs- Wear shoes and socks that fit properly; pad legs for work if necessary. 2. Body Care- Bathe daily; inspect your feet and legs, using a mirror if necessary; wear clean socksor stockings; do NOT soak feet or legs; do not use heating pads. 3. Activity- Exercise regularly (walking, biking, swimming); avoid standing or sitting for more than2 hours in one position; if traveling, stop for brief walk every 2 hours; if necessary to stand at work, shift weight from foot to foot and do toe raises several times an hour. 4. Leg Elevation- Raise your legs above your heart for 15-20 minutes at least 2 times a day, especially in the afternoon. Use a recliner, pillows, arm of the sofa, or put your feet against a chair or wall while lying on the floor. 5. Elastic Support- Wear nuzhat bandages or stockings as instructed every day; remove at night and washwith mild soap and water, hang to dry. Discard when stretched out. 6. Ulcer Care- Follow instructions provided, and call for any questions or concerns. 7. Avoid tight clothing and shoes. 8. Diet- Eat a balanced diet; avoid salty and fatty foods; lose weight if indicated; increase fresh fruits and vegetables. 9. Stop Smoking- Smoking decreases oxygen in the blood, delays healing, and may increase risk of blood clots. 10. Medical Care- Take your medications as prescribed and keep appointments as scheduled. 11. Prevent Venous Thrombosis (clot)- If you have had thrombosis before, work with your health care provider to take measures to prevent another episode. Notify your Doctor or Nurse for: 1. Sudden weight gain or swelling of feet, ankles, or legs. 2. New or different leg pain. 3. Increase or decrease in temperature of legs. 4. Unusual color, amount or odor of drainage from wounds. 5. Bleeding from varicose veins or any wounds. 6. Increase in inflammation or redness of leg. Temperature over 100 degrees F I enjoyed meeting you today in the Thrombosis and Hemostasis Clinic at [facility]. Please feel free to contact me should you have any questions or concerns. I can be reached by phone at: [phone]. RUSTY Larson Our Website [email or web address] You can find information about thrombosis and bleeding problems, links to other educational websites and to your doctor's research programs on our website. You can also make a donation to our program through the website. documented in this encounter Progress Notes Suri Roca NP - 12/20/2011 1131 EDT Thrombosis & Hemostasis Program (THP) Consult H&P Date of Service: 12/20/2011 PCP: FITZ JENKINS MD Reason for Visit: Referral for evaluation of hypercoagulable syndrome Referring Provider: Fitz Jenkins MD HPI: Ms Saundra Blanton is a pleasant 61-year-old female referred for evaluation of hypercoagulable state. She suffered a left lower extremity deep vein thrombosis in 1986 following one month of bed rest and a delivery. Several days following delivery, while still hospitalized, an ultrasound wasdone to assess swelling and pain in her left calf. DVT extended from the calf through the thigh. Sherecalls having an IV anticoagulant while inpatient and being sent home on Coumadin for a period of 1to 2 months. She was next diagnosed with DVT in March 2006 when she presented with right calf pain and swelling. A partially- occlusive thrombosis was seen in her right popliteal and superior posterior tibial vein. Ultrasound report does not note whether this appeared chronic or acute in nature. Shewas initiated on Lovenox and bridged to warfarin long-term. In 2004, in-between episodes of thrombosis she underwent a right bunion repair without post-operative thromboprophylaxis and was in a cast for several months post-op. She was not diagnosed with any clotting complications. Ms Harvinder has a number of cardiac risk factors including obesity, hyperlipidemia, and hypertension. Today, she reports constant pain and discomfort in her right foot and ankle due to her lumbar radiculopathy and muscle atrophy in that area. Her right leg and knee tend to bother her both at rest and with walking. Otherwise, she denies any shortness of breath, chest pain, palpitations, lower extremity swelling, fevers, chills or night sweats. She exercises with walking and has recently lost 21 pounds on [employer]. She is a nonsmoker. Her PCP instructed her to stop coumadin in preparation for this appointment. She has not take coumadin since late October. Up to date on cancer screenings. 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 Wears bilateral compression socks. ROS: Symptom report form reviewed with the patient and can be referred to in the chart. Pertinent positives and negatives listed above in the history of present illness. The rest of the systems are negative. Past Medical History: Patient has a past medical history of Thyroid disease (2005); Lumbar radiculopathy, chronic; Obesity; Fibromyalgia; Sleep apnea (2000); Depression; Deep vein thrombosis (1986, 2005); Hyperlipidemia; Hypertension; Arthritis; and DJD (degenerative joint disease) of thoracic spine. Past Surgical History: Patient has past surgical history that includes section (1986); Cholecystectomy (2006); Bunionectomy (2004); Lumbar disc surgery (1975); Dilation and curettage of uterus (2003); Cataract removal (2007); and Abdomen surgery (2006). Family History: Patient's Family History Problem Relation Age of Onset ??? Fibromyalgia Mother ??? Varicose Veins Mother ??? Arrhythmia Mother ??? Osteoporosis Mother ??? Heart Disease Father ??? Lung Disease Father ??? Suicide Brother Social History: Patient does not have a smoking history on file. She does not have any smokeless tobacco history on file. Medications: acetaminophen, levothyroxine, warfarin, simvastatin, gabapentin, pantoprazole, valsartan, duloxetine, nystatin (bulk), calcium carbonate, loperamide hcl, fa/mv,ca,iron,min/lycopene/lut, and UNABLE TO FIND Allergies: Patient is allergic to adhesive tape-silicones; codeine; sulfa(sulfonamide antibiotics); and vicodin. Objective: BP 155/77 Pulse 76 Temp(Src) 36.4 ??C (97.6 ??F) (Tympanic) Resp 16 Ht 175.5 cm (69.09) Wt 111.358 kg (245 lb 8 oz) BMI 36.16 kg/m2 Estimated Body mass index is 36.16 kg/(m^2) as calculated from the following: Height as of this encounter: 5' 9.094(1.755 m). Weight as of this encounter: 245 lb 8 oz(111.358 kg). Physical Exam: General: Obese female;Alert and cooperative and in no acute distress. Eyes: Conjunctivae not injected, nonicteric. Lungs: Clear to auscultation bilaterally. Heart: Regular, normal S1 and S2, grade 3 systolic ejection murmur Abdomen: Soft, non-tender on palpation. No organomegaly Extremities: Bilateral +1 pitting edema, left > R, left with scattered varices concentrated over the medial malleolus and extending around the ankle, left also appears duskier. Warm, non-tender, calves supple bilaterally without visible varicosities or palpable cords. Labs: None on record Imaging: OSH 09/20/86 LLE venogram: diffuse thrombosis involving the deep venous structures of the left calf and thigh. OSH 04/04/06 RLE ultrasound: partially occlusive right posterior tibial vein thrombosis extending into the popliteal vein. Appear to be collaterals that have developed around the knee. OSH 05/08/07 RLE ultrasound: no evidence of DVT. Small popliteal cyst. Assessment: A 61-year-old female with history of proximal deep vein thrombosis following one month of bed rest and section in 1986. She had a second unprovoked DVT in her left popliteal vein in 2005. The patient has a past medical history of arthritis, sleep apnea, hypertension, obesity, lumbar radiculopathy, hyperlipidemia and fibromyalgia and was referred to us for evaluation ofhypercoagulable state. She has been managed on warfarin since her second DVT in 2005; however, stopped at the end of October in preparation for this appointment. She has no family history of DVT, PE, stroke or recurrent miscarriage and has had multiple surgeries without postoperative clotting complications including a significant bunion repair in 2004, which required approximately 3 months of relative immobility. In review of the imaging reports she brought to her appointment today, the DVT in 2005 is suggestive of chronic clot given the partial compressibility of the vein and evidence of collaterals i n the area. Repeat imaging of the left leg one month later was negative for thrombosis. The patient has several risk factors for recurrent thrombosis including history of recurrent DVT, obesity and advancing age. Given that she has been off of warfarin now for a bit over a month, I will proceed today with thrombophilia testing. I have also ordered followup ultrasounds of both legs to assess for chronic thrombosis and to establish a new baseline. PLAN: 1. Continue to hold warfarin until followup appointment with Dr Lizeth Mccullough on 01/12. 2. Thrombophilia testing today. 3. Reviewed the signs and symptoms of DVT and PE with the patient and she is aware to seek immediatemedical attention should any of these occur while off anticoagulation. 4. Discussed the factors that predispose an individual to venous thromboembolism as well as briefed her on tests we will run today. 5. 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 I recommend she continue wearing her bilateral lower extremity compression socks with replacement every 6 months to 1 year depending on use pattern. 6. Congratulated patient on 21 lb weight loss and encouraged her to continue with it. . 7. Followup 01/13/2012 for review of lab results and for risk stratification to determine if secondary prevention of VTE is appropriate. Please contact my office with questions/concerns. Suri Roca, RUSTY [phone] *I spent a total of 50 minutes in face to face time with this patient today and >30 minutes was spent in direct education and counseling. cc: MD Lizeth LAWSON MD documented in this encounter Plan of Treatment Not on filedocumented as of this encounter Results COMPREHENSIVE METABOLIC PANEL (CMP) (12/20/2011 12:38 EDT) [facility] Potassium 4.0 3.5 - 5.0 mEq/L JIMENEZ [...] Specimen Blood specimen (specimen) Performing Organization Address City/[facility] Code Phon e Number [facility] [address] [phone] SERVICES [facility] [address] [place] [address] HEMAGRAM (12/20/2011 12:38 EDT) Pathologist [facility] nature WBC 4.83 4.0 - 12.4 K/cmm [...] Specimen Blood specimen (specimen) Performing Organization Address City/[facility]/ZIP [facility] Phon e Number [facility] [address] [place] [address] SERVICES [facility] [address] [place] [address] THROMBOSIS PANEL PATIENT NOT ON COUMADIN (12/20/2011 [...] mutation (R506Q, HGVS designation: F5 [id number] G>A [id number]) ??is detected by amplification of DNA isol [...] patient. TEST PERFORMED BY: [facility] [address], [address] [place] [address] These results need to be interpreted in the context of the clinical presentation and the results of other laboratory tests . ??A consultation with a Wastewater Technician or Thrombosis Special ist may be of [...] its performance characteri stics determined by [facility]. ?? This laboratory is certified under the Clinical Laboratory Improvement Amendments of 1988 (CLIA) as qualified to perform high complexity cl inical laboratory testing. ??A [place] statute prevents our l aboratory from releasing these results to anyone other than the emilyo n who has been tested and the referring clinician without the prior w ritten consent of the person tested. Lizeth ??Elzbieta Harirs MD Clinical Director Diagnosis Code: ??V12.51 Prothrombin (Note) [facility] Mutation Comment: LAB RESULT: The Prothrombin [id number] mutation was not detected. METHOD: The Prothrombin [id number] mutation (HGVS designation: [id number]) is detected by amplification of DNA isolate d from blood following by melt curve analysis INTERPRETATION: The Prothrombin [id number] mutation is not present. ?? A genetic cause of deep-vein thrombosis can not be excluded since there a re many other disease causing mutations. As of May 19, 1998, [place] Act 160 prohibits release of genetic test results to third parties without the specific informed consent of the patient. TEST PERFORMED BY: [facility] [address] [place] [address] These results need to be interpreted in the context of the clinical presentation and the results of other laboratory tests . ??A consultation with a Wastewater Technician or Thrombosis Special ist may be of [...] its performance characteri stics determined by [facility]. ?? This laboratory is certified under the Clinical Laboratory Improvement Amendments of 1988 (CLIA) as qualified to perform high complexity cl inical laboratory testing. ??A [place] statute prevents our l aboratory from releasing [...] endpoint titer. Cardiolipin IgM 1.81 MPL BARBARA MCKINNEY Comment: LAB IgM Negative <12.5 MPL Indeterminate [...] Organization Address City/State/ZIP Code Phon e Number [facility] [address] [place] [address] SERVICES [facility] [address] [place] [address] documented in this encounter Visit Diagnoses Diagnosis History of maternal deep vein thrombosis - Primary Personal history of venous thrombosis an d embolism documented in this encounter Historical Medications This list may reflect changes made after this encounter. Medication Sig Dispensed Refills Start Date End Date UNABLE TO FIND as needed. Med 0 Name: Tens Machine PRN UNABLE TO FIND daily. Med Name: 0 Auto c-pap LOPERAMIDE HCL (IMODIUM Take 1 Tab by mouth 0 A-D ORAL) as needed. CALCIUM CARBONATE (CALCIUM Take 500 mg by 0 500 ORAL) mouth daily. FA/MV,CA,IRON,MIN/LYCOPENE Take 1 Tab by mouth 0 /LUT (MULTIVITAL ORAL) daily. simvastatin (ZOCOR) 20 mg Take 20 mg by mouth 0 tablet daily. acetaminophen (TYLENOL) Take 1,000 mg by 0 500 mg tablet mouth 2 times daily. gabapentin (NEURONTIN) 100 Take 300 mg by 0 mg capsule mouth daily. valsartan (DIOVAN) 160 mg Take 160 mg by 0 tablet mouth daily. pantoprazole (PROTONIX) 40 Take 40 mg by mouth 0 mg tablet daily. levothyroxine (SYNTHROID) Take 25 mcg by 0 25 mcg tablet mouth daily. duloxetine (CYMBALTA) 30 Take 30 mg by mouth 0 mg capsule daily. Nystatin, Bulk, 100 % Powd by [facility].(Non-Drug; 0 Combo Route) route as needed. warfarin (COUMADIN) 5 mg Take 5 mg by mouth 0 01/14/2012 tablet daily. added in this encounter Care Teams Firearms Expert Relationship Specialty Start Date End Date Fitz Jenkins MD PCP - General 06/01/10 02/07/[address] [place] [address] documented as of this encounter
--- OUTSIDE RECORDS SUMMARY | 2021-12-21 00:41 | XMS_ITS | Encounter Summary ---
:1950 Author Organization [facility] Address [address] [place] [address] Care Team Providers Name Role Phone Unavailable Primary Care Provider Unavailable Encounter Details Date Type Department Care Team Description 12/19/2003 Hospital Encounter [facility] - Larry Adams, Jovan MD [id number] [place] [id number] (Wo rk) Social History Tobacco Use Types [...]
--- OUTSIDE RECORDS SUMMARY | 2021-12-21 00:41 | XMS_ITS | Encounter Summary ---
:1950 Author Organization [facility] Address [address] [place] [address] Care Team Providers Name Role Phone Unavailable Primary Care Provider Unavailable Encounter Details Date Type Department Care Team Description 04/03/2007 Before [facility] - El Frazier, Converted Visit Daina valdes MD ([place]) 111 [facility] [address] [place], [place] [id number] [place] [address] [place] [place] [address] (Wo rk) Social History Tobacco Use Types Packs/Day Years Used Date Never Assessed Sex Assigned at Date Recorded Not on file documented as of this encounter Progress Notes El Frazier MD - 03/26/20091942 EST DIVISION OF GASTROENTEROLOGY April 03, 2007 Saundra Blanton [address] [place] [address] Dear Ms. Blanton, The resultsof your removal of your carcinoid tumor are as follows: The carcinoid appears to have been completely resected during this exam as per Pathology. I would recommend that you have a repeat upper endoscopy in one year to reevaluation your stomach. Sincerely, Signed by El Frazier MD 04/14/2007 15:04 Nickolas Frazier [phone] Hand [phone] El Frazier MD [phone] - El Frazier MD - jyothi Job ID: [id number] Doc ID: [id number] cc: MD Hao Baires MD Lydia Harvey, [facility] [place], [place] * [phone] - El Frazier MD - jyothi Job ID: [id number] Doc ID: [id number] cc: MD Hao Baires MD Lydia Harvey, [place] [address]* documented in this encounter Plan of Treatment Not on filedocumented as of this encounter Visit Diagnoses Not on filedocumented in this encounter
--- OUTSIDE RECORDS SUMMARY | 2021-12-21 00:41 | XMS_ITS | Encounter Summary ---
:1950 Author Organization [facility] Address [address] [place] [address] Care Team Providers Name Role Phone Elmer Dunn MD Primary Care Provider [phone] Encounter Details Date Type Department Care Team Description 05/30/2010 Results Only [facility] Hao Scruggs MD Laboratory Services - [address] [place] [address] [place] [address] [place] [address] [phone] Social History Tobacco Use Types Packs/Day Years Used Date Never Assessed Sex Assigned at Date Recorded Not on file documented as of this encounter Plan of Treatment Not on filedocumented as of this encounter Procedures Procedure Name Priority Date/Time Associated Diagnosis Comme [facility] SURGICAL PATHOLOGY Routine 05/30/2010 0:00 EST Re sults for this procedure are i n the results section. documented in this encounter Results SURGICAL PATHOLOGY (05/30/2010 0:00 EST) Pathologist [facility] Pathology Report: SURGICAL PATHOLOGY REPORT ? [facility] Reports generated via electr Litographs interface contain original data; ? LAB however they are lacking the format of the original report. ? Caution should be taken when reading/interpreting unformatted reports. ? Name: ? MADHURI, ED M ? Accession #: ? [id number] ? : ? 1950 (Age: 60) ??F ? Collec t Date: ? 05/30/2010 ? Location: ? [facility] ? R eceive Date: ? 05/30/2010 ? Provider: HAO WALKO MD ? Copy to: RIO Nelson D ? Final Pathologic Diagnosis: ? A. ?Stomach, fu ndic gland polyp, biopsy: ? 1. ?Multiple fu ndic gland polyps. ? 2. ? Mild chronic gastri tis. ? 3. ? Foveolar hyperplasi a. ? 4. ? Submucosal carbon b lack pigment. ? 5. ? No neoplastic proce ss identified. ? B. ?Stomach, ga stric carcinoid excision site, biopsy: ? 1. ?Oxyntic-typ e mucosa with mild chronic gastritis. ? 2. ? No neoplastic proce ss identified. ? C. ?Esophagus, lower, biopsy: ? 1. ?Squamocolum valentina junctional mucosa with mild reactive epithelial ? changes. ? Document reviewed and electr onically signed by: ? LIS L FELDMAN MD ? Report ??Date: 06/04/2010 15 :27 ? By the signature above, the attending physician certifies that he/she has ? personally conducted a gross and/or microscopic examination of the described ? specimens and rendered or co nfirmed the above diagnosis. ? Specimen(s) Received: ? A. ?Fundic glan d polyp (#1) ? B. ? Bx site gastric car cinoid excision (#2) ? C. ? Bx lower esophagus (#3) ? Clinical History: ? H/O gastric carcinoid ? Gross Description: ? Received in [facility]' s fixative labelled Ed Blanton and #1 ??fundic ?? gland polyp are four biopsi es which vary in size from 0.2 x 0.2 x 0.1 cm up to 0.3 x 0.3 x 0.3 cm. ??The sp ecimens are submitted intact as (A1) and (A2). ? Received in [facility]'s fixat patrick labelled Ed Blanton and #2 ??bx gastric ? carcinoid excision site are three biopsies which vary in size from 0.3 x 0.2 x 0.2 cm up to 0.3 x 0.3 x 0.2 cm. ??The specimens are submitted intact as (B). ? Received in [facility]'s fixat patrick labelled Ed Blanton and #3 ??bx lower ? esophagus are two biopsies, each measuring 0.3 x 0.2 x 0.2 cm. ??The specimens ?? are submitted intact as (C). ??(J.D. Tessitore)/kmm ? End of Report ? Specimen Performing Organization Address City/State/ZIP Code Phon e Number [facility] [address] [place] [address] SERVICES [facility] [address] [place] [address] documented in this encounter Visit Diagnoses Not on filedocumented in this encounter Care Teams District Attorney Relationship Specialty Start Date End Date Elmer Dunn MD PCP - General 06/08/09 05/31/[address] [place] [address] documented as of this encounter
--- OUTSIDE RECORDS SUMMARY | 2021-12-21 00:41 | XMS_ITS | Encounter Summary ---
:1950 Author Organization [facility] Address [address] [place] [address] Care Team Providers Name Role Phone Fitz Jenkins MD Primary Care Provider Encounter Details Date Type Department Care Team Description 06/11/2011 Results Only [facility] Corina Childs MD Laboratory Services - [address] [place] [address] [place] [id number] Social History Tobacco Use Types Packs/Day Years Used Date Never Assessed Sex Assigned at Date Recorded Not on file documented as of this encounter Plan of Treatment Not on filedocumented as of this encounter Procedures Procedure Name Priority Date/Time Associated Diagnosis Comme nts SURGICAL PATHOLOGY Routine 06/11/2011 0:00 EST Re sults for this procedure are i n the results section. documented in this encounter Results SURGICAL PATHOLOGY (06/11/2011 0:00 EST) Pathology Report: SURGICAL PATHOLOGY REPORT [facility] Reports generated via electronic interface contain jennifer ginal data; LAB however they are lacking the format of the original re port. Caution should be taken when reading/interpreting unfo rmatted reports. Name: ? SAUNDRA DHALIWAL ? Accession #: ? [id number] ? : ? 1950 (Age: 61) ??F ? Collect Date: ? 06/11/2011 ? Location: ? [facility] ? Receive Date: ? 012 ? Provider: CORINA CHILDS MD Copy to: MARTHA JENKINS MD ? Final Pathologic Diagnosis: ? Endometrium, biopsy: 1. ?Disassociated fragments of inactive e ndometrium with tubal metaplasia. 2. ? Benign endocervical tissue. Document reviewed and electronically signed by: HUMERA ROSE MD Report ??Date: 06/14/2011 15:20 By the signature above, the attending physician certif ies that he/she has personally conducted a gross and/or microscopic examin ation of the described specimens and rendered or confirmed the above diagnosi s. Specimen(s) Received: ? Endometrial bx Clinical History: ? PMB, LMP: 2002 Gross Description: ? Received in formalin labelled Harvinder, Saundra and endometrial bx are 2.5 cc of blood-tinged mucus admixed with clotted bl ood and multiple fragments of red-brown tissue. ??The spec imen is entirely submitted in one cassette following filtration. ??(Fer Crowell)/[facility] End of Report Specimen Performing Organization Address City/State/ZIP Code Phon e Number [facility] [address] [place] [address] SERVICES [facility] [address] [place] [address] documented in this encounter Visit Diagnoses Not on filedocumented in this encounter Care Teams Cutter Finisher Relationship Specialty Start Date End Date Fitz Jenkins MD PCP - General 06/01/10 02/07/16 [address] [place], [place] [address] documented as of this encounter
--- OUTSIDE RECORDS SUMMARY | 2021-12-21 00:41 | XMS_ITS | Encounter Summary ---
:1950 Author Organization [facility] Address [address] [place] [address] Care Team Providers Name Role Phone Elmer Dunn MD Primary Care Provider [phone] Fitz Jenkins MD Primary Care Provider Encounter Details Date Type Department Care Team Description 01/28/2004 Before [facility] - Roman Adams, Converted Visit Daina valdes MD (Maple) [id number] [place] [phone] (Wo rk) Social History Tobacco Use Types Packs/Day Years Used Date Never Assessed Sex Assigned at Date Recorded Not on file documented as of this encounter Plan of Treatment Not on filedocumented as of this encounter Visit Diagnoses Not on filedocumented in this encounter Care Teams Rn Hedis Relationship Specialty Start Date End Date Elmer Dunn MD PCP - General 06/08/09 05/31/10 [address] [place] [address] Fitz Jenkins MD PCP - General 06/01/10 02/07/[address] [place] [address] documented as of this encounter
--- OUTSIDE RECORDS SUMMARY | 2021-12-21 00:41 | XMS_ITS | Encounter Summary ---
:1950 Author Organization [facility] Address [address] [place] [address] Care Team Providers Name Role Phone Unavailable Primary Care Provider Unavailable Encounter Details Date Type Department Care Team Description 12/18/2004 Hospital Encounter [facility] - Larry Adams Maple conversion MD [address] [address] [place], [place] [phone] (Wo rk) Social History Tobacco Use Types Packs/Day Years Used Date Never Assessed Sex Assigned at Date Recorded Not on file documented as of this encounter Discharge Disposition Disposition Code Departure Means Destination Auto Discharge documented in this encounter Procedure Notes Coleman Vallejo CNM - 12/18/2004 0000 EDT DIVISION OF PAIN MANAGEMENT OUTPATIENT PROCEDURE REPORT SERVICE DATE: 12/18/2004 AIR POLLUTION CONTROL ENGINEER: Lakeshia Mena MDJohn Breth, MDJames Rathmell, MD RN ACCESS: Coleman Vallejo MD PROCEDURE: Right L4-5 transforaminal epidural steroid injection under fluoroscopic guidance. PREPROCEDURE DIAGNOSIS: Right L5 radiculopathy. POSTPROCEDURE DIAGNOSIS: Right L5 radiculopathy. INDICATIONS: Ms. Blanton presents today with her typical right lower extremity pain. The patient has been seen in this clinic multiple times and undergone epidural steroid injections with excellent success. The patient most recently had a transforaminal epidural steroid injection on April 11, 2004, with greater than six months of near-total relief of her pain. The patient presents today complainingof her typical right lower extremity pain, which begins in the right lower back and radiates down the lateral thigh to the level of her foot. patient states there is no change in the character of her pain, but it has returned over the past two months. The patient characterizes her back pain as a constant, dull, aching pain, which radiates down to her foot. She says at times there is a sharp, shootingpain that is in her back. The patient denies any new lower extremity weakness or numbness. She does continue to have significant right foot weakness to dorsiflexion,which has been chronically treated with an ankle-foot orthosis. The patient does have decreased sensation in her right foot, but this is unchanged from previous exams. The patient denies any bowel or bladder incontinence. Today, the patient rates her pain as a 4/10, but states that it does get to be 9-10/10 at times. REVIEW OF SYSTEMS: Essentially negative. The patients medicine history has not changed since her last visit. She denies fever, chills, or other new medical problems. PHYSICAL EXAM: Height 5 feet 9 inches, weight is 242 pounds. Blood pressure 141/76, pulse 71, respiratory rate is 20, temperature is 36.5. In general, the patient is a mildly obese, middle-aged female who appears to be in no acute distress. There is no gross deformity of her lumbar spine, there is no pain to palpation over the lumbar paraspinous muscles or spinous processes or SI joints. The patient has full range of motion her lower extremities without pain or paresthesias. Straight leg raise is negative bilaterally. Motor strength is 5/5 in lower extremities, except for right foot dorsiflexion, which is 3-4/5, and right foot eversion, which is also decreased. DTRs are at 2+ bilaterally in patellar tendons and Achilles tendons. Sensation is grossly intact to light touch, except for the dorsum ofher right foot. Gait is nonantalgic. The patient does have slight limp, secondary to right foot drop. ASSESSMENT: Chronic L5 on the right radiculopathy. PLAN: Today, we will perform a lumbar epidural steroid injection transforaminal at the right L4-5 level as previously done. In addition, the patient is to return to clinic in three to four weeks. If she does not have significant relief of her pain, we are considering her for possibly the nucleoplasty study. PROCEDURE NOTE: After discussing the risks and benefits of the procedure, informed consent was obtained with the patient. She was then placed prone on the fluoroscopy table. The overlying skin of the lumbosacral region was prepped generously with chlorhexidine solution and draped in a sterile manner. f luoroscopic guidance, the right L4-5 neural foramen was identified. The overlying skin and subcutaneous tissue were anesthetized with 2% lidocaine, 2 cc total volume. A 22-gauge 5-inch needle was then guided in a coaxial fashion to lay at the posterior superior segment of the right l4-5 neural foramen. was confirmed in both AP and lateral projections with the fluoroscope. After negative aspiration, 1cc of radiocontrast was injected, which showed good spread in the epidural space without vascular uptake. The patient experienced no pain or paresthesias upon injection of the medication. Subsequently,80 mg of and 1 cc of 0.25% bupivacaine were injected slowly and incrementally. The patient tolerated the procedure well without pain or paresthesias. The needle was withdrawn, tpatient was monitored for a short period. Postprocedure vital signs: Blood pressure 158/93, pulse 75. Dr. Adams was present and supervised the entire procedure. Signed by Roman Adams MD 12/21/2004 17:37 Misti Mena MDJames Rathmell, MD Dictated by: Coleman Vallejo MD Roman Adams MD - Coleman Vallejo MD A - ss Job ID: [id number] Document ID: [id number] cc: Elmer Dunn MD documented in this encounter Plan of Treatment Not on filedocumented as of this encounter Visit Diagnoses Not on filedocumented in this encounter
--- OUTSIDE RECORDS SUMMARY | 2021-12-21 00:41 | XMS_ITS | Encounter Summary ---
:1950 Author Organization [facility] Address [address] [place] [address] Care Team Providers Name Role Phone Elmer Allen MD Primary Care Provider [phone] Encounter Details Date Type Department Care Team Description 03/28/2003 Results Only [facility] - Jr Medina MD conversion [address] [place] [address] Social History Tobacco Use Types Packs/Day Years Used Date Never Assessed Sex Assigned at Date Recorded Not on file documented as of this encounter Plan of Treatment Not on filedocumented as of this encounter Procedures Procedure Name Priority Date/Time Associated Diagnosis Comme nts SURGICAL PATHOLOGY Routine 03/28/2003 0:00 EST Re sults for this procedure are i n the results section. documented in this encounter Results SURGICAL PATHOLOGY (03/28/2003 0:00 EST) Pathology Report: SURGICAL PATHOLOGY REPORT [facility] Reports generated via electronic interface contain jennifre ginal data; LAB however they are lacking the format of the original re port. Caution should be taken when reading/interpreting unfo rmatted reports. Name: ? SAUNDRA DHALIWAL ? Accession #: ? [id number] ? : ? 1950 (Age: 53) ??F ? Collect Date: ? 03/28/2003 ? Location: ? [facility] ? Receive Date: ? 003 ? Provider: JR DUFF MD Copy to: ELMER ALLEN MD ? Final Pathologic Diagnosis: ? Endometrium, biopsy: 1. ?Strips of s uperficial weakly proliferative endometrium with tubal metaplasia. 2. ?Fragments o f endocervical tissue with squamous metaplasia and acute and chronic cervicitis. 3. ?No hyperplasia or dysplasia identifie d. Document reviewed and electronically signed by: BERNICE FELICIANO MD Report ??Date: 04/01/2003 16:11 By the signature above, the attending physician certif ies that he/she has personally conducted a gross and/or microscopic examin ation of the described specimens and rendered or confirmed the above diagnosi s. Specimen(s) Received: ? Endometrial biopsy Clinical History: ? Postmenopausal bleeding, 10 mm endo stripe on U /S Gross Description: ? Received in formalin labeled Andrea and end ometrium are multiple fragments of grossman mucinous and focally hyperemic tissue which measure in aggregate 2.4 x 1.5 x 0.6 cm. ??The specimen is entire ly submitted in one cassette. ??(Jeremiah Barillas)/[facility] End of Report Specimen Performing Organization Address City/State/ZIP Code Phon e Number [facility] [address] [place] [address] SERVICES [facility] [address] [place] [address] documented in this encounter Visit Diagnoses Not on filedocumented in this encounter Care Teams Senior Reservoir Engineer Relationship Specialty Start Date End Date Elmer Allen MD PCP - General 06/08/09 05/31/10 [address] [place] [id number] documented as of this encounter
--- NOTE | 2021-12-21 08:00 | DI.RAD_ITS ---
Exam(s) XR HEEL RT OS CALCIS EXAM: XR HEEL RT OS CALCIS CLINICAL HISTORY: right heel pain. ? spur,m79.671. TECHNIQUE: 2D digital imaging was performed. Three images were obtained. COMPARISON: CR RIGHT ANKLE COMPLETE from 12/01/2016 FINDINGS: BONES: No acute fracture is present. No bony destructive lesion is seen. No calcaneal spur is seen. There are calcifications seen in the soft tissues inferior to the calcaneus likely associated with t he plantar fascia. The distal aspect of a fixation plate and screws are seen in the distal fibula. Mild hypertrophic changes are seen at the talonavicular joint. JOINTS: No dislocation present. SOFT TISSUE: Normal. IMPRESSION: Calcifications associated with the plantar fascia. This can occur in the setting of plantar fasciiti s. This can also occur secondary to prior trauma or prior steroid injection. Please correlate clini amdy. DATA REPOSITORY: RADIATION DOSE DELIVERED:
== END ==
PROVIDERS: PCP Nurse Practitioner; Visit Provider Nurse Practitioner
DX: M79.671 Pain in right foot (principal); M72.2 Plantar fascial fibromatosis
CPT/HCPCS: 73650

== ENCOUNTER → 2022-03-05 02:49 | Outpatient (CLI) | payer MEDICARE, SELFPAY ==
--- NOTE | 2022-03-05 07:00 | DI.RAD_ITS ---
Exam(s) XR KNEE RT 3V AP,LAT,SKYLA EXAM: XR KNEE RT 3V AP,LAT,SKYLA CLINICAL HISTORY: Evaluate for arthritis,PRIMARY OA, M17.11, PAIN. TECHNIQUE: 2D digital imaging was performed of the right knee. Four views obtained. AP, lateral and PA tunnel views were obtained. COMPARISON: No exams were available for comparison FINDINGS: BONES: No acute fracture is present. No bony destructive lesion is seen. JOINTS: There is mild periarticular spurring in all 3 joint compartments. Chondrocalcinosis is seen in the femoral tibial joint. No joint effusion is seen. SOFT TISSUE: Normal. IMPRESSION: Mild degenerative changes of the knee. DATA REPOSITORY: RADIATION DOSE DELIVERED:
== END ==
PROVIDERS: PCP Nurse Practitioner; Visit Provider Family Medicine
DX: M17.11 Unilateral primary osteoarthritis, right knee (principal)
CPT/HCPCS: 73562

== ENCOUNTER → 2022-05-09 09:18 | Outpatient (BNVA) | payer MEDICARE, SELFPAY | PROVIDERS: PCP Nurse Practitioner; Referring Provider Nurse Practitioner; Visit Provider Student in an Organized Health Care Education/Training Program | DX: M17.11 Unilateral primary osteoarthritis, right knee (principal); M11.261 Other chondrocalcinosis, right knee; M21.41 Flat foot [pes planus] (acquired), right foot; M21.42 Flat foot [pes planus] (acquired), left foot | CPT/HCPCS: 99203 ==

== ENCOUNTER → 2022-06-06 13:44 | Outpatient (BNVA) | payer MEDICARE, SELFPAY | PROVIDERS: PCP Nurse Practitioner; Referring Provider Nurse Practitioner | DX: M11.261 Other chondrocalcinosis, right knee (principal); M17.11 Unilateral primary osteoarthritis, right knee | CPT/HCPCS: 20610; J1040 ==

== ENCOUNTER 2022-07-22 10:35 | Outpatient (REF) | payer MEDICARE, SELFPAY ==
[2022-07-22 16:15] LABS: COVID-19 PCR Negative (Negative); Influenza A PCR Negative (Negative); Influenza B PCR Negative (Negative); RSV PCR Negative (Negative)
[2022-07-22 16:18] LABS: Source Nasopharynx
== END 2022-07-22 10:36 | disposition home or self-care (01) ==
LOC: LBN 10:35
PROVIDERS: PCP Nurse Practitioner; Referring Provider Nurse Practitioner; Visit Provider Nurse Practitioner
DX: R53.83 Other fatigue (principal); R05.8 Other specified cough; R09.81 Nasal congestion; Z20.822 Contact with and (suspected) exposure to COVID-19
CPT/HCPCS: 87637

== ENCOUNTER 2022-08-05 14:47 | Emergency (ER) | payer MEDICARE, SELFPAY ==
[2022-08-05 14:49] VITALS: BP 149/78; PULSE 78; RESP 16; TEMP 36.4; O2SAT 97
--- NOTE | 2022-08-05 15:30 | DI.RAD_ITS ---
Exam(s) XR KNEE RT 3V AP,LAT,SKYLA EXAM: XR KNEE RT 3V AP,LAT,SKYLA CLINICAL HISTORY: fall, contusion. TECHNIQUE: 2D digital imaging was performed. COMPARISON: CR XR KNEE RT 3V AP,LAT,SKYLA from 03/05/2022 FINDINGS: Four views: No evidence of acute fracture but there does appear to be a joint effusion. Moderate degenerative changes. Also chondrocalcinosis. Healed fracture site in the proximal fibula again noted. IMPRESSION: Degenerative changes. Chondrocalcinosis. Joint effusion. DATA REPOSITORY: RADIATION DOSE DELIVERED:
--- NOTE | 2022-08-05 15:30 | DI.CT_ITS ---
Exam(s) CT HEAD CERV SPINE FACIAL WO EXAM: CT HEAD CERV SPINE FACIAL WO CLINICAL HISTORY: fall, right lateral orbital trauma, on xarelto. TECHNIQUE: Imaging Protocol: Axial computed tomography images with coronal and sagittal reformatted images were created and reviewed COMPARISON: No exams were available for comparison FINDINGS: CT BRAIN: There are no skull fractures nor fluid in the visualized paranasal sinuses. There is no evidence of intracranial hemorrhage, mass effect, or shift of midline structures. There are no extra-axial fluid collections. The ventricles are not enlarged or shifted and there is no blo od within the ventricular system nor within the basal cisterns. Periventricular hypodensity noted but there is also an area of asymmetric density in the right or the right middle cerebral artery-cysts right sylvian fissure region consistent with area nonhemorrhagic infarct. CT MAXILLOFACIAL BONES: There is no evidence of facial fractures nor fluid in the visualized paranasal sinuses. there is no evidence of orbital blowout fracture. CT CERVICAL SPINE: There is no evidence of fracture nor listhesis. No significant prevertebral soft tissue swelling. N o facet malalignment evident. No significant osseous lesions evident. There is multilevel facet arthropathy including multilevel facet joint fusion but no facet malalignme nt. IMPRESSION: Abnormal area of hypodensity in territory of the right middle cerebral artery consistent with nonhemo rrhagic infarct. This may be acute. Correlation with neurological exam recommended.No skull fractur es nor intracranial hemorrhage, given the acute history here. No evidence of facial nor orbital blowout fractures. No evidence of acute cervical spine fracture, malalignment, nor acute compromise of the cervical spin al canal. Other findings as above. Called by myself to ER provider RADIATION DOSE DELIVERED: 2,293.63mGy.cm Total DLP DATA REPOSITORY: All CT scans at this facility are submitted to the National Radiology Data Registry (NRDR) Dose Index Registry (DIR) with the [employer] (ACR). RADIATION OPTIMIZATION: All CT scans at this facility use at least one of these dose optimization te chniques: automated exposure control; mA and/or kV adjustment per patient size (includes targeted exa ms where dose is matched to clinical indication); or iterative reconstruction.
--- NOTE | 2022-08-05 15:31 | W.ED.GENAD ---
Discharge Plan Disposition Patient Disposition: Home Condition: Stable Discharge Details Clinical Impression: Head trauma, Abrasion, Knee swelling Primary Care Provider: Ingrid Espinosa ED Provider: Hattie Tucker Meds and New Rx's Prescriptions: Continued melatonin 10 mg tablet 10 mg PO HS PRN gabapentin 300 mg capsule See Rx Instructions PO BID Qty: 270 3RF Rx Instructions: PO twice a day; 300mg in the AMs and 600mg in the PM diclofenac sodium [Voltaren Arthritis Pain] 1 % gel 2 g topical QID PRN zinc 250 mg PO DAILY salon pas patch with lidocaine topical PRN benzonatate 200 mg capsule 200 mg PO TID PRN (Reason: cough) Qty: 21 0RF ketoconazole 2 % cream 1 applic TP BID PRN (Reason: rash under breasts) Qty: 30 3RF calcium carbonate [Tums] 200 mg calcium (500 mg) tablet,chewable 200 mg PO BID PRN trazodone 50 mg tablet 50 mg PO QHS PRN (Reason: sleep) Qty: 90 1RF acetaminophen [Acetaminophen Extra Strength] 500 MG tablet 2 tab PO BID calcium carbonate 500 MG tablet 1 tab PO DAILY Imodium A-D 2 MG tablet,chewable 2 mg PO QID PRN Rx Instructions: As needed. diphenhydramine HCl 50 MG capsule 50 mg PO HS Rx Instructions: for allergies cholecalciferol (vitamin D3) 1,000 UNIT tablet 1,000 unit PO DAILY Qty: 100 Rx Instructions: for bone health C-PAP HS desonide 15 GM cream 1 irina Topical BID PRNQty: 30 Rx Instructions: As Directed. Apply topically mix with ketoconazole, under breasts, skin folds. (per [facility] derm) Buildup See Rx Instructions PO Rx Instructions: innumotherapy med from Dr. aCssidy ENT see task dated 08/01/20 cgc Citrucel 500 mg tablet See Rx Instructions PO DAILY Rx Instructions: 2 caps PO daily taken with 8oz fluid; incr by 1 cap qweek as tolerated up to 12 capsules daily. PO daily; nystatin 100,000 unit/gram powder 1 applic TP BID PRN (Reason: rash) Qty: 60 3RF fluticasone propionate [Flonase Allergy Relief] 50 mcg/actuation spray,suspension 1 spray intranasal BID Qty: 16 2RF Rx Instructions: administer into each nostril cetirizine [Zyrtec] 10 mg tablet 10 mg PO DAILY Qty: 90 3RF fexofenadine 180 mg tablet 180 mg PO DAILY PRN (Reason: allergies) Qty: 90 3RF epinephrine [EpiPen 2-Darrell] 0.3 mg/0.3 mL auto-injector 0.3 mg IM ONCE Qty: 2 6RF Rx Instructions: as a single dose losartan 100 mg tablet 50 mg PO DAILY Qty: 90 3RF levothyroxine 25 mcg tablet 37.5 mcg PO DAILY Qty: 135 4RF Rx Instructions: 1 1/2 tabs or 37.5mcg PO daily (DME) Custom Amara Brace See Rx Instructions .Route .MEDSUPPLY Qty: 1 0RF Rx Instructions: Please measure and fit for a custom Amara Brace to the right ankle to support acquired pes planus deformity from chronic weakness of nerve impairment. Recent injury, surgery, and infection have caused a change to the shape and size of the ankle. Xarelto 20 mg tablet 20 mg PO QPM Qty: 90 3RF bupropion HCl [Wellbutrin XL] 150 mg tablet extended release 24 hr 150 mg PO QAM Qty: 90 3RF ezetimibe [Zetia] 10 mg tablet 10 mg PO DAILY Qty: 90 3RF (DME) Relief Knee Close Toe Stocking Misc Miscellaneous Qty: 2 12RF Rx Instructions: COMPRESSIONS STOCKINGS, APPLY IN AM AND REMOVE QPM. DX: H/O Venous Embolism (Deep Vessels pf L.E.) I82.90. metoprolol succinate 25 mg tablet extended release 24 hr 25 mg PO DAILY Qty: 90 3RF Discharge Instructions Instructions: Head Injury (ED), Abrasion (ED) Additional Instructions: As we discussed, your imaging does not show any bleeding, fractures or other emergent traumatic injury. However, there was concern for possible stroke. Our discussion indicates that this is likely old. I do encourage you to continue with your anticoagulation. Please call your neurology team to schedule follow-up appointment and discuss these images. If you develop any weakness, sensory changes, headache, vision changes, nausea or vomiting or other new/worsening symptom please seek care urgently once again. Otherwise, please follow-up with your primary care provider in the next week. Referrals: Ingrid Espinosa NP [Primary Care Provider] - Discharge Data Discharge Date/Time-TO BE ENTERED AT DEPARTURE: 08/05/22 17:47 Medical Decision Making <ANAT Pleitez - Last Filed: 08/06/22 20:50> 72-year-old female presents with fall on Eliquis with head injury, placed for CT head, cervical spine and facial bones, tetanus reportedly up-to-date Also ordered right knee x-ray, bruise noted Afebrile and nontoxic in appearance, ambulatory with steady gait and nonfocal neurological exam Will order Zofran for some nausea and Tylenol for headache if CT is negative Care transition to Hattie Piburn pending CT head, cervical spine, facial bones and right knee x-ray <ANAT Stovall - Last Filed: 08/16/22 09:19> 72-year-old female presents with fall on Eliquis with head injury, placed for CT head, cervical spine and facial bones, tetanus reportedly up-to-date Also ordered right knee x-ray, bruise noted Afebrile and nontoxic in appearance, ambulatory with steady gait and nonfocal neurological exam Will order Zofran for some nausea and Tylenol for headache if CT is negative Care transition to Hattie Piburn pending CT head, cervical spine, facial bones and right knee x-ray Care transition to myself from Anitra Richardson PA-C. Please see her initial note regarding history, presentation and exam. In brief, patient is a pleasant 72-year-old female who is anticoagulated and suffered mechanical fall. Had a boot get stuck in the mud and she fell forward striking the right side of her face. At the time I assumed care, imaging was pending. Imaging reviewed by radiologist: FINDINGS: Four views: No evidence of acute fracture but there does appear to be a joint effusion. Moderate degenerative changes.? Also chondrocalcinosis.? Healed fracture site in the proximal fibula again noted. IMPRESSION: Degenerative changes.? Chondrocalcinosis.? Joint effusion. CT BRAIN: There are no skull fractures nor fluid in the visualized paranasal sinuses. There is no evidence of intracranial hemorrhage, mass effect, or shift of midline structures.? There are no extra-axial fluid collections.? The ventricles are not enlarged or shifted and there is no blood within the ventricular system nor within the basal cisterns. Periventricular hypodensity noted but there is also an area of asymmetric density in the right or the right middle cerebral artery-cysts right sylvian fissure region consistent with area nonhemorrhagic infarct. CT MAXILLOFACIAL BONES: There is no evidence of facial fractures nor fluid in the visualized paranasal sinuses.? there is no evidence of orbital blowout fracture. CT CERVICAL SPINE: There is no evidence of fracture nor listhesis.? No significant prevertebral soft tissue swelling.? No facet malalignment evident. No significant osseous lesions evident. There is multilevel facet arthropathy including multilevel facet joint fusion but no facet malalignment. IMPRESSION: Abnormal area of hypodensity in territory of the right middle cerebral artery consistent with nonhemorrhagic infarct.? This may be acute.? Correlation with neurological exam recommended.No skull fractures nor intracranial hemorrhage, given the acute history here. No evidence of facial nor orbital blowout fractures. No evidence of acute cervical spine fracture, malalignment, nor acute compromise of the cervical spinal canal.? Other findings as above. I discussed the above findings with the patient. In particular, we discussed the abnormality of the MCA. There was a concern for possible acute CVA. However, patient denies any type of CVA symptoms. This was truly a mechanical fall. She is not having any neurological deficits. This sounds more to be old. I do not have any previous imaging of her head. She is followed with neurology at [facility], primarily for her spine. We did discuss the concerns of this old infarct. As this was likely to be ischemic, patient is notably anticoagulated at this time. She does have chronic right-sided weakness but states that this has been going on for the past 10 years. We discussed further evaluation and she feels that this can be completed with her PCP and neurology team. As she has no new deficits and has clear story, agree with this plan. Strict rertur precautions discussed. Daughter will be supporting patient. All of her questions and concerns were addressed, she is in agreement with this plan. HPI <ANAT Pleitez - Last Filed: 08/06/22 20:50> General Date/Time Provider Initiated Documentation: 08/05/22 15:15. HPI Narrative: This 72-year-old female with multiple comorbidities but significant history of anticoagulation for atrial fibrillation on rivaroxaban presents with report of mechanical fall. States she had her foot stuck in the mud, causing her to fall onto her right side. This happened at 1215. She hit her head. She denies any additional injuries aside from right knee. She states she was ambulatory and denies any loss of consciousness. She states that the headache has been mild but persistent. She feels nauseous without vomiting. She denies any neck pain. She states she is able to ambulate with any sort of difficulty. She denies any additional complaints at this time. Tetanus is reportedly up-to-date. Denies strength or sensation change. Was actually able to operate her vehicle to be evaluated today without difficulty per patient. Denies any dizziness. Related Data Home Medications Medication Instructions Recorded Confirmed acetaminophen 500 mg tablet 2 tab PO BID 08/06/12 08/05/22 (Acetaminophen Extra Strength) calcium carbonate 500 mg calcium 1 tab PO DAILY 08/06/12 08/05/22 (1,250 mg) tablet loperamide 2 mg chewable tablet 2 mg PO QID PRN 08/06/12 08/05/22 (Imodium A-D) cholecalciferol (vitamin D3) 25 1,000 unit PO DAILY #100 tabs 12/17/13 08/05/22 mcg (1,000 unit) tablet diphenhydramine HCl 50 mg capsule 50 mg PO HS 12/17/13 08/05/22 C-Pap HS 04/21/14 07/22/22 desonide 0.05 % topical cream 1 irina topical BID PRN #30 grams 11/25/16 08/05/22 ketoconazole 2 % topical cream 1 applic topical BID PRN rash 10/28/18 08/05/22 under breasts #30 grams melatonin 10 mg tablet 10 mg PO HS PRN 05/18/20 08/05/22 Buildup See Rx Instructions PO 08/01/20 07/22/22 calcium carbonate 200 mg calcium 200 mg PO BID PRN 03/21/21 08/05/22 (500 mg) chewable tablet (Tums) methylcellulose (laxative) 500 mg See Rx Instructions PO DAILY 04/10/21 08/05/22 tablet (Citrucel) nystatin 100,000 unit/gram topical 1 applic topical BID PRN rash #60 04/26/21 08/05/22 powder grams trazodone 50 mg tablet 50 mg PO QHS PRN sleep #90 tabs 08/28/21 08/05/22 gabapentin 300 mg capsule See Rx Instructions PO BID #270 11/27/21 08/05/22 tab-caps cetirizine 10 mg tablet (Zyrtec) 10 mg PO DAILY #90 tabs 11/30/21 08/05/22 fluticasone propionate 50 1 spray intranasal BID #16 grams 11/30/21 08/05/22 mcg/actuation nasal spray,suspension (Flonase Allergy Relief) fexofenadine 180 mg tablet 180 mg PO DAILY PRN allergies #90 12/17/21 08/05/22 tabs epinephrine 0.3 mg/0.3 mL 0.3 mg (0.3 mL) IM ONCE #2 ea 03/04/22 08/05/22 injection, auto-injector (EpiPen 2-Darrell) levothyroxine 25 mcg tablet 37.5 mcg PO DAILY #135 tab-caps 04/08/22 08/05/22 losartan 100 mg tablet 50 mg PO DAILY #90 tabs 04/08/22 08/05/22 [facility] Brace #1 ea 05/15/22 08/05/22 bupropion HCl 150 mg 24 hr tablet, 150 mg PO QAM #90 tabs 05/21/22 08/05/22 extended release (Wellbutrin XL) ezetimibe 10 mg tablet (Zetia) 10 mg PO DAILY #90 tabs 05/21/22 08/05/22 rivaroxaban 20 mg tablet (Xarelto) 20 mg PO QPM #90 tabs 05/21/22 08/05/22 diclofenac sodium 1 % topical gel 2 g topical QID PRN 05/30/22 08/05/22 (Voltaren Arthritis Pain) compress.stocking,knee,reg,lrg #2 ea 06/06/22 08/05/22 (Relief Knee Close Toe Stocking) metoprolol succinate 25 mg 25 mg PO DAILY #90 tabs 07/01/22 08/05/22 tablet,extended release 24 hr benzonatate 200 mg capsule 200 mg PO TID PRN cough #21 caps 07/22/22 08/05/22 salon pas patch with lidocaine topical PRN 07/22/22 07/22/22 zinc 250 mg PO DAILY 07/22/22 07/22/22 Previous Rx's Medication Instructions Recorded ketoconazole 2 % topical cream 1 applic topical BID PRN rash 10/28/18 under breasts #30 grams nystatin 100,000 unit/gram topical 1 applic topical BID PRN rash #60 04/26/21 powder grams trazodone 50 mg tablet 50 mg PO QHS PRN sleep #90 tabs 08/28/21 gabapentin 300 mg capsule See Rx Instructions PO BID #270 11/27/21 tab-caps cetirizine 10 mg tablet (Zyrtec) 10 mg PO DAILY #90 tabs 11/30/21 fluticasone propionate 50 1 spray intranasal BID #16 grams 11/30/21 mcg/actuation nasal spray,suspension (Flonase Allergy Relief) fexofenadine 180 mg tablet 180 mg PO DAILY PRN allergies #90 12/17/21 tabs epinephrine 0.3 mg/0.3 mL 0.3 mg (0.3 mL) IM ONCE #2 ea 03/04/22 injection, auto-injector (EpiPen 2-Darrell) levothyroxine 25 mcg tablet 37.5 mcg PO DAILY #135 tab-caps 04/08/22 losartan 100 mg tablet 50 mg PO DAILY #90 tabs 04/08/22 Custom Amara Brace #1 ea 05/15/22 bupropion HCl 150 mg 24 hr tablet, 150 mg PO QAM #90 tabs 05/21/22 extended release (Wellbutrin XL) ezetimibe 10 mg tablet (Zetia) 10 mg PO DAILY #90 tabs 05/21/22 rivaroxaban 20 mg tablet (Xarelto) 20 mg PO QPM #90 tabs 05/21/22 compress.stocking,knee,reg,lrg #2 ea 06/06/22 (Relief Knee Close Toe Stocking) metoprolol succinate 25 mg 25 mg PO DAILY #90 tabs 07/01/22 tablet,extended release 24 hr benzonatate 200 mg capsule 200 mg PO TID PRN cough #21 caps 07/22/22 Allergies Allergy/AdvReac Type Severity Reaction Status Date / Time latex Allergy Unknown SKIN RASH Verified 08/05/22 14:56 Penicillins Allergy Unknown per skin Verified 08/05/22 14:56 tests by cotton chopper, never had a reaction to Sulfa (Sulfonamide Allergy Unknown Rash Verified 08/05/22 14:56 Antibiotics) gluten AdvReac Mild INTOLERENCE Verified 08/05/22 14:56 codeine AdvReac Verified 08/05/22 14:56 adhesive tape Allergy rash Uncoded 08/05/22 14:56 Hydrocodone-Acetaminophen AdvReac Uncoded 08/05/22 14:56 General Stated Complaint: Fall/Non TraumaCriteria YARA: 4 PFSH <ANAT Pleitez - Last Filed: 08/06/22 20:50> All Active Problems Head trauma (Acute) Abrasion (Acute) Knee swelling (Acute) Acquired pes planovalgus of right foot (Acute ~06/2022) Dr Thomas, [facility] Eyelid lesion (Acute ~06/2022) 06/25/22 Ophth Bilateral pseudophakia (Acute ~06/2022) 06/25/22 Ophth Pre-diabetes (Acute) Chondrocalcinosis of right knee (Acute) depo medrol 06/06/22 Degenerative joint disease of right knee (Acute) Hypogammaglobulinemia (Acute) 04/24/22 Hem/Onc Radiculopathy, lumbar region (Acute) 03/18/22 Dr Mayer Anticoagulation adequate (Acute) Nail dystrophy (Acute) Plantar fasciitis (Acute) per xr Pre-diabetes (Acute) Post-menopause (Acute) Bilateral nephrolithiasis (Acute 03/05/21) non-obstructing Wound of right ankle (Acute) Mobility impaired (Acute) Subcutaneous nodule (Acute) Fibromyalgia (Acute) Family history of breast cancer (Acute) History of DVT (deep vein thrombosis) (Acute) Pain due to varicose veins of lower extremity (Acute) Fecal incontinence (Acute 05/26/20) IBS (irritable bowel syndrome) (Chronic 05/26/20) Impaired fasting glucose (Acute 07/09/11) Angiomyolipoma of both kidneys (Acute) cystoscopy 03/2013, 02/22/20-[facility] urology note. Coleman Du MD. 02/2020 normal cystoscopy followed by Dr. Du [facility] urol Left breast lump (Acute) Atrial fibrillation (Chronic 11/29/19) Obesity (Chronic) Depressive disorder (Chronic 03/18/97) Primary osteoarthritis of both hips (Acute) [facility] Right hip pain (Acute) Postnasal drip (Acute 07/05/13) Allergic rhinitis (Acute 07/05/13) Brachial plexus disorders (Acute 07/09/11) Migraine (Acute 02/15/98) Chronic headache (Chronic) Dr. Mayer Lumbar radiculopathy, chronic (Chronic) Donovan Mayer mD Weakness of foot (Acute) weak leg & R foot drop due to LS disc problems Seasonal allergic rhinitis (Acute 10/29/12) RESPONSIVE TO LORATADINE/FLONASE Osteoarthritis, hip, bilateral (Acute 06/07/14) ortho: Dr Salcido, [facility] Obstructive sleep apnea, adult (Acute 05/19/90) CPAP initially sleep lab [facility] 04/2020 Amy Lizzette Morbid obesity (Acute 07/09/11) goal: 230 (10% less than 11/2014 wt) Hypothyroidism (Acute 05/04/12) Hyperlipidemia (Acute 06/19/02) Simvastatin begun 10/2006 failed on lifestyle alone, goal LDL <130 then Hypercoagulable state, primary (Acute) h/o w/u [facility] 12/2011; rec wt loss and aggressive prophylaxis for immobilization H/O malignant carcinoid tumor of stomach (Acute 02/16/07) GASTRIC CARCINOID, [facility], [facility], EGD 06/01/09; RPT Q 2 YR EGD 08/19/17 Dr Quinn >20 hyperplastic gastric polyps Gastroesophageal reflux disease (Acute 07/09/11) Flat feet, bilateral (Acute 12/31/16) brace right leg, insert left foot Chronic pain (Acute 10/19/01) rarely opioid; uses cymbalta for chronic foot, back, sometimes head pain; after disc rupture 10/2001 [facility] Chronic lymphocytic leukemia (Acute) [facility] hematology consult note 10/09/17 [facility] hem/onc f/u note 02/22/21 Benign hypertension (Acute 06/19/02) Signed copy of advance directive in patient notes (Acute 07/09/11) Medical History (Updated 08/05/22 @ 17:25 by ANAT Stovall) Abnormality of nail tissue Actinic keratoses 07/08/22 [facility] and had cryotherapy tp L Cheek Allergic fungal sinusitis (10/04/13) Angiomyolipoma of kidney 12/13/19 F/u [facility] Urology Chronic diarrhea Chronic pain syndrome Closed displaced comminuted fracture of shaft of right fibula 11/02/20-[facility].scheduled for OR on 11/06/20. Farnaz Acuña APRN Depression with anxiety DVT (deep venous thrombosis) GERD (gastroesophageal reflux disease) Headache Hyperlipidemia Insect sting Insect sting allergy, current reaction Lentigines 07/08/22 [facility] Multiple nevi 07/08/22 [facility] Obesity (BMI 30-39.9) Postmenopausal bleeding (06/11/11) Primary stomach malignant carcinoid tumor resection 2006 Right thigh pain Seborrheic keratoses 07/08/22 [facility] Sleep apnea Systolic murmur Thoracic outlet syndrome Tick bite Undiagnosed cardiac murmurs (05/05/02) Weakness of foot Surgical History (Updated 11/06/20 @ 15:09 by Vandana Kay RN) section 1986 Cholecystectomy Laparoscopic-2006 Colonoscopy - MAC (07/22/16) Sacha Briones 2005- Dr. Clement Dilation and curettage 2004 disc surgery 2006 EGD - [facility] (07/22/16) 2012-walko 2009 2006 EGD - [facility] (08/19/17) 2012-walko 2009 2006 endoscopic US 2007 Extraction of cataract Bilateral-2007 Status post ORIF of fracture of ankle (11/06/20) fixation left ankle, [facility] Family History Mother , sepsis at age 84. Diabetes Essential hypertension Fibromyalgia Heart disease Hyperlipidemia Sepsis Father , copd at age 79. Essential hypertension COPD (chronic obstructive pulmonary disease) Heart disease Hyperlipidemia Sister Breast cancer post-menopausal Brother , suicide at age 31. Mental disorder Paternal Aunt Breast cancer post-menopausal Other Alcohol abuse Lyme disease Prostate cancer Social History (Updated 08/28/21 @ 14:14 by Linda Handley RN) Smoking/Tobacco Use Status: Never Second Hand Exposure: No Smoking risk assessment performed?: Yes Alcohol Intake: current Alcohol Intake frequency: a few times a month Drug use: Never Substance use type: does not use Adopted: No Caregiver/Support person: No Foster care: No Household members: none Housing: house Number of Children: 1 number of grandchildren: 0 Communication Needs: Corrective Lenses Education Level: master's degree Do you need help understanding health information?: Never current occupation: Retired Pets and animals: Yes Pets and animals: cat(s) and dog(s) Sexually active: No Do you think of yourself as: straight/heterosexual Current gender identity: female What is your relationship status?: How often do you talk on the phone with friends or family?: three or more times per week How often do you get together with friends or relatives?: twice per week Do you belong to any clubs or organized social groups?: yes Panel score (0-1 are the most socially isolated patients): 2 What type of physical activity do you participate in: walking Duration: 45-60 minutes/day Frequency: daily Dolores/Yarsani: Restorationism Special dolores needs: No Agree to transfusion: Yes Seatbelt use: always Helmet use: Yes Helmet use: other Details: Not needed Drive intox or ride w/intox 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 Abrasion noted, swelling and tenderness noted periorbitally, no proptosis, extraocular muscles intact pupils equal round reactive to light and accommodation bilaterally, no crepitus, no hemotympanum Other: Uvula midline, oropharynx patent Eyes Pupils: PERRL Neck Other: No midline cervical spine tenderness Resp Effort & Inspection: normal respiratory effort Auscultation: clear to auscultation bilaterally Other: No visible sign of trauma, no chest wall tenderness Cardio Rate: regular rate Rhythm: regular rhythm Other: Distal pulses intact Extrem Other: Right knee with tenderness, abrasion Course <ANAT Pleitez - Last Filed: 08/06/22 20:50> Vital Signs Vital signs: Vital Signs Temperature 36.4 C 08/05/22 14:49 Pulse 78 08/05/22 14:49 Respiratory Rate 16 08/05/22 14:49 Blood Pressure 149/78 H 08/05/22 14:49 Pulse Oximetry 97 08/05/22 14:49 Temperature 36.4 C 08/05/22 14:49 Temperature Source Tympanic 08/05/22 14:49 Pulse 78 08/05/22 14:49 Respiratory Rate 16 08/05/22 14:49 Respiratory Effort Normal 08/05/22 14:54 Blood Pressure 149/78 H 08/05/22 14:49 Blood Pressure Position Sitting 08/05/22 14:49 Pulse Oximetry 97 08/05/22 14:49 Oxygen Delivery Method Room Air 08/05/22 14:49 Oxygen Flow Rate 0 08/05/22 14:49 Pain Level 5 08/05/22 14:54 Sign Out <ANAT Pleitez - Last Filed: 08/06/22 20:50> Sign Out Data: Sign Out Comment: pending ct head, facial bones, cspine, right knee Last updated by Anitra Richardson PA at 08/05/22 15:42 PAWSS <ANAT Pleitez - Last Filed: 08/06/22 20:50> Have you Been Recently Intoxicated or Drunk Within the Last 30 days?: No Have you Ever Experienced Previous Episodes of Alcohol Withdrawal?: No Have you ever Experienced Withdrawal Seizures?: No Have you ever Experienced Delirium Tremens(DT)s?: No Have you ever undergone Alcohol Rehabilitation Treatment (i.e, inpt ot outpatient treatment programs)?: No Have you ever Experienced Blackouts?: No Have you ever Combined Alcohol with other Downers within the last 90 days?: No Have you ever Combined Alcohol with any other Substance of Abuse during the last 90 days?: No Result: 0 <ANAT Stovall - Last Filed: 08/16/22 09:19> Result: 0
[2022-08-05] MEDS: Acetaminophen 325 MG TAB 650 MG PO (15:51)
[2022-08-05] MEDS: Ondansetron O.D.T. 4 MG TABEF PO (15:51)
[2022-08-05 17:44] VITALS: BP 126/84; PULSE 67; RESP 18; TEMP 36.7; O2SAT 93
== END 2022-08-05 17:47 | disposition home or self-care (01) ==
PROVIDERS: Emergency Provider Physician Assistant; PCP Nurse Practitioner
DX: S00.91XA Abrasion of unspecified part of head, initial encounter (principal); S80.211A Abrasion, right knee, initial encounter; I48.91 Unspecified atrial fibrillation; Z86.718 Personal history of other venous thrombosis and embolism; Z79.01 Long term (current) use of anticoagulants; W19.XXXA Unspecified fall, initial encounter; W22.8XXA Striking against or struck by other objects, initial encounter
CPT/HCPCS: 73562; 99284; 70450; 70486; 72125

== ENCOUNTER 2022-08-09 02:48 | Outpatient (CLI) | payer MEDICARE, SELFPAY ==
[2022-08-09 09:55] LABS: ALT 24 U/L (14-59); AST 27 U/L (15-37); Albumin 3.9 g/dL (3.4-5.0); Alkaline Phosphatase 73 U/L (46-116); Anion Gap 5.1 mmol/L (3-11); BUN 17 mg/dL (7-18); Bilirubin, Total 0.3 mg/dL (0.2-1.0); CO2 30.9 mmol/L (21.0-32.0); CREATININE 0.9 mg/dL (0.55-1.02); Calcium 9.9 mg/dL (8.5-10.1); Calculated LDL 115 mg/dL (<100); Chloride 107 mmol/L (98-107); Cholesterol 202 mg/dL (<200); Glucose 97 mg/dL (74-106); HDL Cholesterol 62 mg/dL (40-60); Potassium 4.1 mmol/L (3.5-5.1); Sodium 143 mmol/L (136-145); TSH (W/Ref FT4) 6.72 uIU/mL (0.36-3.74); Total Protein 6.7 g/dL (6.4-8.2); Triglyceride 127 mg/dL (<150)
[2022-08-09 10:14] LABS: FREE T4 0.79 ng/dL (0.76-1.46)
[2022-08-12 10:27] LABS: Hepatitis C Ab w Rflx HCV PCR Negative (Negative)
== END 2022-08-09 02:49 | disposition home or self-care (01) ==
PROVIDERS: PCP Nurse Practitioner; Visit Provider Nurse Practitioner
DX: I10 Essential (primary) hypertension (principal); E78.5 Hyperlipidemia, unspecified; E03.9 Hypothyroidism, unspecified; R73.03 Prediabetes
CPT/HCPCS: 36415; 80053; 80061; 86803; 84439; 84443

== ENCOUNTER 2022-08-26 00:05 | Outpatient (CLI) | payer MEDICARE, SELFPAY ==
--- NOTE | 2022-08-26 07:30 | DI.MAMMO_ITS ---
Exam(s) MAMMO SCREENING EXAM: MAMMO SCREENING CLINICAL HISTORY: screening,z12.39 TECHNIQUE: Bilateral full field digital CC and MLO mammographic images were obtained with 3D tomosyn thesis and utilizing computer aided detection (CAD). COMPARISON: Available for comparison. FINDINGS: Masses/Architectural Distortion: None seen. Microcalcifications: No suspicious pleomorphic-type are seen. Skin Thickening/Nipple Retraction: None. IMPRESSION: 1. No significant interval change with no specific features of malignancy noted. 2. Unless there is more urgent need, screening mammography is recommended, as per [employer] guidelines. BI-RADS Category 1 - Negative Breast Density - Category B - Scattered areas of fibroglandular density Breast density category C or D implies that the patient has dense breast tissue. Dense breast tissue is very common and is not abnormal but dense breast tissue can make it harder to find cancer on a ma mmogram. Also, dense breast tissue may increase their breast cancer risk. This information about the result of the mammogram report was provided to the patient to raise their awareness. Use this report when you speak with the patient about their risks for breast cancer, which includes their family hist ory. At that time, you may recommend for more screening tests (Ultrasound or MRI) as they might be us eful based on their risk. A negative radiographic report should not delay biopsy if a dominant or clinically suspicious mass is present. Up to ten percent of cancers are not identified on mammography. A negative report may reinforce clinical impression. Adenosis and dense breasts may obscure an underlying neoplasm. False positive reports average 6 to 10%. Patient will receive a letter notifying them of these results.
== END 2022-08-26 00:25 ==
LOC: DI 00:06
PROVIDERS: PCP Nurse Practitioner; Visit Provider Nurse Practitioner
DX: Z12.31 Encounter for screening mammogram for malignant neoplasm of breast (principal)
CPT/HCPCS: 77063; 77067

== ENCOUNTER 2022-11-05 03:16 | Outpatient (CLI) | payer MEDICARE, SELFPAY ==
[2022-11-05 09:20] LABS: TSH (W/Ref FT4) 3.87 uIU/mL (0.36-3.74)
[2022-11-05 09:36] LABS: FREE T4 0.85 ng/dL (0.76-1.46)
== END 2022-11-05 03:17 | disposition home or self-care (01) ==
LOC: LBO 03:16
PROVIDERS: PCP Nurse Practitioner; Visit Provider Nurse Practitioner
DX: E03.9 Hypothyroidism, unspecified (principal)
CPT/HCPCS: 36415; 84439; 84443

== ENCOUNTER 2023-03-04 14:29 | Outpatient (REF) | payer MEDICARE, SELFPAY | END 2023-03-04 14:30 | disposition home or self-care (01) | LOC: LBN 14:29 | PROVIDERS: PCP Nurse Practitioner; Visit Provider Nurse Practitioner | DX: R31.29 Other microscopic hematuria (principal) | CPT/HCPCS: 87086 ==

== ENCOUNTER 2023-03-12 15:45 | Outpatient (REF) | payer MEDICARE, SELFPAY | END 2023-03-12 15:46 | disposition home or self-care (01) | LOC: LBN 15:45 | PROVIDERS: PCP Nurse Practitioner; Visit Provider Nurse Practitioner | DX: R31.9 Hematuria, unspecified (principal) | CPT/HCPCS: 87086 ==

== ENCOUNTER → 2023-03-14 08:20 | Outpatient (CLI) | payer MEDICARE, SELFPAY ==
--- NOTE | 2023-03-14 08:00 | DI.CT_ITS ---
Exam(s) CT ABDOMEN PELVIS WO/W EXAM: CT ABDOMEN PELVIS WO/W CLINICAL HISTORY: Gross hematuria with clots, negative culture,leukemia,r31.0,c91.90,z85.20. TECHNIQUE: Imaging Protocol: Axial computed tomography images with coronal and sagittal reformatted images were created and reviewed. Images were performed from the lung bases through the ischial tuberosities before IV contrast and fol lowing IV contrast using a 70 second delay, followed by 7 minutes delayed images. CONTRAST MATERIAL: Intravenous: Omnipaque 350 Contrast volume:100 cc Oral: no COMPARISON: CT ABD PELVIS WITH CONTRAST from 03/20/2017 CT ABD PELVIS WITH CONTRAST from 07/22/2017 FINDINGS: ABDOMEN: Lung Bases: Normal where visualized. Small hiatal hernia. Liver: Normal density. No measurable mass. Gallbladder and biliary tract: Status post cholecystectomy. No radiodense calculus or dilation. Pancreas: Normal density, no abnormal calcifications or inflammatory process. Spleen: Normal. Kidneys: Normal size, contour and axis. Two tiny stones noted at the lower pole of the left kidney. Stable appearance of 2 small purely fatty lesions, consistent with angiomyolipomas, in the mid and lo wer pole of the left kidney. Interval increase in size of mainly fatty lesion also consistent with a ngiomyolipoma at the posterior aspect of the right kidney, now measuring 6.1 cm in length by 16 abigail meters AP by 3.6 cm transverse. It measured 3.4 by 1.2 by 2.3 cm on the prior exam. Adrenal glands: No masses seen. Lymph nodes: Multiple enlarged para-aortic and mesenteric lymph nodes are present in the abdomen and pelvis which have increased in size compared with the previous exam. A left upper para-aortic node is measured at 1.9 cm transverse compared with 1.4 cm on prior. Additional left para-aortic node measur es 13 millimeters compared to 10 millimeters. Mesenteric lymph nodes some measure up to 15 millimeter s in size. There less than a centimeter in size on the prior exam. Abdominal Aorta: Abdominal portion non-dilated. Soft tissues: Unremarkable. PELVIS: Bladder: Diffuse wall thickening. No evidence of a mass.No evidence of calculi. Bowel: No obstruction or bowel wall thickening. Appendix normal. Peritoneal cavity: No ascites, collection or mesenteric inflammatory response. Soft tissues: Bones: Unremarkable for age.. Reproductive organs: Unremarkable for age.. IMPRESSION: Diffuse bladder wall thickening could indicate cystitis. No focal mass or calculus. Two small nonobstructing stones lower pole left kidney. 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 Interval growth of right angiomyolipoma, measuring over 6 cm in greatest dimension. Surgical consult could be considered given the risk of bleeding of large angiomyolipomas. Interval increase in size of para-aortic and mesenteric lymph nodes. RADIATION DOSE DELIVERED: Total DLP DATA REPOSITORY: All CT scans at this facility are submitted to the National Radiology Data Registry (NRDR) Dose Index Registry (DIR) with the [employer] (ACR). RADIATION OPTIMIZATION: All CT scans at this facility use at least one of these dose optimization te chniques: automated exposure control; mA and/or kV adjustment per patient size (includes targeted exa ms where dose is matched to clinical indication); or iterative reconstruction.
[2023-03-14 09:09] LABS: CREATININE 0.8 mg/dL (0.55-1.02); Estimated GFR 77.75 (mL/min/1.73m2)
[2023-03-14] MEDS: Omnipaque 350 MG/ML 500 ML BTL-Imaging package 100 ML IJ (10:10)
[2023-03-14] MEDS: Normal Saline - Diluent 50 ML VIAL IJ (10:12)
== END ==
PROVIDERS: Family Medicine; PCP Nurse Practitioner; Visit Provider Nurse Practitioner
DX: C91.90 Lymphoid leukemia, unspecified not having achieved remission (principal); R31.0 Gross hematuria; Z85.020 Personal history of malignant carcinoid tumor of stomach
CPT/HCPCS: 36415; 74178; 82565

== ENCOUNTER → 2023-05-15 10:40 | Outpatient (BNVA) | payer MEDICARE, SELFPAY | PROVIDERS: PCP Nurse Practitioner; Referring Provider Nurse Practitioner; Visit Provider Podiatrist | DX: L60.3 Nail dystrophy (principal); Z79.01 Long term (current) use of anticoagulants; L84 Corns and callosities; G62.9 Polyneuropathy, unspecified; R09.89 Other specified symptoms and signs involving the circulatory and respiratory systems; R60.0 Localized edema; R23.4 Changes in skin texture; L65.9 Nonscarring hair loss, unspecified; M79.675 Pain in left toe(s); M79.674 Pain in right toe(s) | CPT/HCPCS: 11721 ==

== ENCOUNTER → 2023-06-16 10:43 | Outpatient (CLI) | payer MEDICARE, SELFPAY ==
--- NOTE | 2023-06-16 16:15 | DI.RAD_ITS ---
Exam(s) XR KNEE RT 3V AP,LAT,SKYLA EXAM: XR KNEE RT 3V AP,LAT,SKYLA CLINICAL HISTORY: right knee pain after a fall about a mos ago. M25.561 PAIN RT KNEE. TECHNIQUE: 2D digital imaging was performed. COMPARISON: CR XR KNEE RT 3V AP,LAT,SKYLA from 08/05/2022 FINDINGS: 3 views No evidence of acute fracture although there is a joint effusion noted. There is chondrocalcinosis i n the medial lateral compartments again evident. Mild degenerative changes in these compartments not ed. No osteochondral defects. Capsular calcification again noted posteriorly. IMPRESSION: Degenerative changes. Joint effusion. Chondrocalcinosis. Also again noted is healed fracture of the proximal fibula/fibular neck. DATA REPOSITORY: RADIATION DOSE DELIVERED:
--- NOTE | 2023-06-16 16:15 | DI.RAD_ITS ---
Exam(s) XR ANKLE RT COMPLETE EXAM: XR ANKLE RT COMPLETE CLINICAL HISTORY: pain after fall M25.571 PAIN RT ANKLE. TECHNIQUE: 2D digital imaging was performed. COMPARISON: CR XR HEEL RT OS CALCIS from 12/21/2021 FINDINGS: 3 views Lateral fixation plate and syndesmotic screws again noted. Also calcification across the inter osseo us ligament at this level. The more superior of the 2 parallel syndesmotic screws is fractured. The re is an osteophytic density off the inferior aspect of the lateral malleolus which is either an old fracture fragment or ununited apophysis. Prior ankle images do not have similar views and cannot be compared. Lucency in the medial talar dome noted. Probably a small degenerative cyst.. No evidence of osteomy elitis. IMPRESSION: As above. DATA REPOSITORY: RADIATION DOSE DELIVERED:
== END ==
PROVIDERS: PCP Nurse Practitioner; Visit Provider Nurse Practitioner
DX: M25.571 Pain in right ankle and joints of right foot; M11.261 Other chondrocalcinosis, right knee
CPT/HCPCS: 73562; 73610

== ENCOUNTER → 2023-06-27 09:11 | Outpatient (BNVA) | payer MEDICARE, SELFPAY | PROVIDERS: PCP Nurse Practitioner; Referring Provider Nurse Practitioner | DX: M17.11 Unilateral primary osteoarthritis, right knee (principal); M11.261 Other chondrocalcinosis, right knee; Z87.81 Personal history of (healed) traumatic fracture; Z98.890 Other specified postprocedural states | CPT/HCPCS: 20610; J1040 ==

== ENCOUNTER → 2023-08-26 10:22 | Outpatient (BNVA) | payer MEDICARE, SELFPAY | PROVIDERS: PCP Nurse Practitioner; Referring Provider Nurse Practitioner; Visit Provider Podiatrist | DX: G62.9 Polyneuropathy, unspecified (principal); L84 Corns and callosities; M54.16 Radiculopathy, lumbar region; I70.203 Unspecified atherosclerosis of native arteries of extremities, bilateral legs; I87.2 Venous insufficiency (chronic) (peripheral); M21.371 Foot drop, right foot; L60.3 Nail dystrophy | CPT/HCPCS: 11721 ==

== ENCOUNTER 2023-09-02 15:32 | Outpatient (REF) | payer MEDICARE, SELFPAY | END 2023-09-02 15:33 | disposition home or self-care (01) | LOC: LBN 15:32 | PROVIDERS: PCP Nurse Practitioner; Visit Provider Nurse Practitioner | DX: R82.90 Unspecified abnormal findings in urine (principal) | CPT/HCPCS: 87077; 87086; 87186 ==

== ENCOUNTER → 2023-09-05 01:00 | Outpatient (CLI) | payer MEDICARE, SELFPAY ==
--- NOTE | 2023-09-05 07:45 | DI.MAMMO_ITS ---
Exam(s) MAMMO SCREENING EXAM: MAMMO SCREENING CLINICAL HISTORY: screening,Z12.39 TECHNIQUE: Mammograms were interpreted according to the usual protocol including computer analysis w [employer] CAD system, tomosynthesis and C-view imaging. COMPARISON: 2015 through 2022 FINDINGS: The breasts are composed of mainly fatty density , Breast Density category A. No suspicious masses or suspicious microcalcifications are seen. No skin thickening or abnormal axillary lymph nodes are seen. There has been no significant change from prior exams. IMPRESSION: BI-RADS Category 1, Negative mammogram Yearly screening mammography is recommended. Breast Density - Category A, fatty density. A negative radiographic report should not delay biopsy if a dominant or clinically suspicious mass is present. Up to ten percent of cancers are not identified on mammography. A negative report may reinforce clinical impression. Adenosis and dense breasts may obscure an underlying neoplasm. False positive reports average 6 to 10%. Patient will receive a letter notifying them of these results.
--- NOTE | 2023-09-05 07:45 | DI.RAD_ITS ---
Exam(s) XR ANKLE RT COMPLETE EXAM: XR ANKLE RT COMPLETE CLINICAL HISTORY: ? bony abn right lateral ankle, s/p surg '21,q79.9. TECHNIQUE: 2D digital imaging was performed. Three views. COMPARISON: No exams were available for comparison FINDINGS: BONES: There has been no change in the hardware in the distal fibula with mortise screws. Fracture o f the superior mortise screw is again noted. There is some root bony bridging across the syndesmosis again noted. Smoothly marginated bony density beneath the lateral malleolus is unchanged. Small lorena cency again noted on the medial talar dome on the oblique view, unchanged. Intertarsal degenerative changes. No acute fracture is present. No bony destructive lesion is seen. JOINTS: The ankle mortise is normally aligned. SOFT TISSUE: Normal. IMPRESSION: Stable degenerative and postsurgical changes. DATA REPOSITORY: RADIATION DOSE DELIVERED:
== END ==
PROVIDERS: PCP Nurse Practitioner; Visit Provider Nurse Practitioner
DX: Z12.31 Encounter for screening mammogram for malignant neoplasm of breast (principal); Z98.890 Other specified postprocedural states; S82.451D Displaced comminuted fracture of shaft of right fibula, subsequent encounter for closed fracture with routine healing; X58.XXXD Exposure to other specified factors, subsequent encounter
CPT/HCPCS: 77063; 77067; 73610

== ENCOUNTER 2023-09-19 05:10 | Outpatient (CLI) | payer MEDICARE, SELFPAY ==
[2023-09-19 09:18] LABS: Hemoglobin A1C 6.2 % (<5.7)
[2023-09-19 09:37] LABS: Calculated LDL 124 mg/dL (<100); Cholesterol 203 mg/dL (<200); HDL Cholesterol 60 mg/dL (40-60); Triglyceride 99 mg/dL (<150)
[2023-09-19 09:57] LABS: FREE T4 0.99 ng/dL (0.76-1.46)
== END 2023-09-19 05:11 | disposition home or self-care (01) ==
PROVIDERS: PCP Nurse Practitioner; Visit Provider Nurse Practitioner
DX: E03.9 Hypothyroidism, unspecified (principal); E78.5 Hyperlipidemia, unspecified; I10 Essential (primary) hypertension
CPT/HCPCS: 36415; 80061; 83036; 84439; 84443

== ENCOUNTER 2023-10-07 21:26 | Outpatient (REF) | payer MEDICARE, SELFPAY ==
[2023-10-07 18:16] LABS: Bilirubin Negative (Negative); Blood Moderate (Negative); Clarity Turbid (Clear); Glucose Negative (Negative); Ketones Negative (Negative); Leukocyte Esterase Large (Negative); Nitrite Positive (Negative); Specific Gravity 1.015 (1.005-1.025); Urobilinogen 0.2 mg/dL (Up to 0.2); pH 5.5 (5-8)
[2023-10-07 18:25] LABS: Bacteria Many HPF (Negative)
[2023-10-07 18:26] LABS: C & S Indicated? Yes; WBC >50 HPF (0-5)
== END 2023-10-07 21:27 | disposition home or self-care (01) ==
LOC: LBN 21:26
PROVIDERS: PCP Nurse Practitioner; Visit Provider Nurse Practitioner
DX: R82.90 Unspecified abnormal findings in urine (principal); B96.20 Unspecified Escherichia coli [E. coli] as the cause of diseases classified elsewhere
CPT/HCPCS: 87077; 81003; 81015; 87086; 87186

== ENCOUNTER 2023-10-16 16:17 | Outpatient (REF) | payer MEDICARE, SELFPAY | END 2023-10-16 16:18 | disposition home or self-care (01) | LOC: LBN 16:17 | PROVIDERS: PCP Nurse Practitioner; Visit Provider Physician Assistant Medical | DX: J02.9 Acute pharyngitis, unspecified (principal) | CPT/HCPCS: 87070 ==

== ENCOUNTER → 2023-10-31 11:10 | Outpatient (BNVA) | payer MEDICARE, SELFPAY | PROVIDERS: PCP Nurse Practitioner; Referring Provider Podiatrist; Visit Provider Physical Therapy Assistant | DX: I70.203 Unspecified atherosclerosis of native arteries of extremities, bilateral legs (principal); I87.2 Venous insufficiency (chronic) (peripheral) | CPT/HCPCS: 93922 ==

== ENCOUNTER 2023-12-10 01:29 | Outpatient (CLI) | payer MEDICARE, SELFPAY ==
[2023-12-10 11:54] LABS: ESR 1 mm/hr (0-30)
== END 2023-12-10 01:30 | disposition home or self-care (01) ==
PROVIDERS: PCP Nurse Practitioner; Visit Provider Otolaryngology Otolaryngology/Facial Plastic Surgery
DX: R51.9 Headache, unspecified (principal); M26.69 Other specified disorders of temporomandibular joint; J34.89 Other specified disorders of nose and nasal sinuses
CPT/HCPCS: 36415; 85652

== ENCOUNTER → 2023-12-24 01:25 | Outpatient (CLI) | payer MEDICARE, SELFPAY ==
--- NOTE | 2023-12-24 06:45 | DI.CT_ITS ---
Exam(s) CT SINUS WO EXAM: CT SINUS WO CLINICAL HISTORY: unilateral headache, frontal sinus pain,jaw claudication,r51.9,j34.89,. Evaluate for sinusitis. TECHNIQUE: Imaging Protocol: Axial computed tomography images with coronal and sagittal reformatted images were created and reviewed. COMPARISON: CT CT HEAD CERV SPINE FACIAL WO from 08/05/2022 FINDINGS: Frontal sinuses: Normally aerated. Ethmoid air cells: Mild mucosal thickening. Maxillary sinuses: Normally aerated. Sphenoid sinus: Normally aerated. Ostiomeatal complexes: Patent. Nasal cavity: Septum is mildly deviated toward the right. Bilateral pablo bullosa of the middle tur binates.. Visualized regional soft tissues: No acute findings. Orbits: Unremarkable. Bones: Unremarkable. Mastoid Air Cells: Normally aerated. Visualized portions of the brain: Unremarkable as visualized. Temporomandibular joints appear normal. IMPRESSION: Minimal sinus disease. RADIATION DOSE DELIVERED: Total DLP DATA REPOSITORY: All CT scans at this facility are submitted to the National Radiology Data Registry (NRDR) Dose Index Registry (DIR) with the [employer] (ACR). RADIATION OPTIMIZATION: All CT scans at this facility use at least one of these dose optimization te chniques: automated exposure control; mA and/or kV adjustment per patient size (includes targeted exa ms where dose is matched to clinical indication); or iterative reconstruction.
== END ==
PROVIDERS: PCP Nurse Practitioner; Visit Provider Otolaryngology Otolaryngology/Facial Plastic Surgery
DX: R51.9 Headache, unspecified (principal); J34.89 Other specified disorders of nose and nasal sinuses; M26.69 Other specified disorders of temporomandibular joint; A69.20 Lyme disease, unspecified
CPT/HCPCS: 70486

== ENCOUNTER 2024-01-08 02:26 | Outpatient (CLI) | payer MEDICARE, SELFPAY ==
--- NOTE | 2024-01-08 08:30 | DI.DEXA_ITS ---
Exam(s) XR DEXA BONE DENSITY W/WO ANEESH EXAM: XR DEXA BONE DENSITY W/WO ANEESH CLINICAL HISTORY: screenING FOR OSTEOPOROSIS IN POSTMENOPAUSAL WOMAN, H/O FX,Z78.0 TECHNIQUE: [employer] C densitometer analysis of left hip, lumbar spine and left forearm. Lat eral survey image of the thoracic and lumbar spine. COMPARISON: CR XR DEXA BONE DENSITY W/WO ANEESH from , 2008, 2014 FINDINGS: Lateral view of the thoracic and lumbar spine shows no evidence of compression fractures. Bone mineral density measurements of the lumbar spine correspond to a total T-score of 2.0, in the normal range. This represents a 3.2 percent decrease compared with 2021 and 6.1 percent decrease com pared with 2002. Bone mineral density measurements of the left hip correspond to a total T-score of 1.2, this represe nts a 5.7 percent decrease compared with 2002 and is not significantly changed from 2021.. The femor al neck T-score is 1.8, in the normal range.. Theleft forearm bone mineral density measurements correspond to a T-score of the distal 3rd of 0.5. Is not significantly changed from 2021. This represents a 4.2 percent decrease when compared to 2008. . IMPRESSION: Normal bone mineral density.
== END 2024-01-08 02:46 ==
LOC: DI 02:26
PROVIDERS: PCP Nurse Practitioner; Visit Provider Nurse Practitioner
DX: Z87.81 Personal history of (healed) traumatic fracture (principal); Z78.0 Asymptomatic menopausal state; Z13.820 Encounter for screening for osteoporosis
CPT/HCPCS: 77080

== ENCOUNTER → 2024-01-15 09:47 | Outpatient (BNVA) | payer MEDICARE, SELFPAY | PROVIDERS: PCP Nurse Practitioner; Referring Provider Nurse Practitioner; Visit Provider Podiatrist | DX: G62.9 Polyneuropathy, unspecified (principal); L84 Corns and callosities; M54.16 Radiculopathy, lumbar region; I70.203 Unspecified atherosclerosis of native arteries of extremities, bilateral legs; I87.2 Venous insufficiency (chronic) (peripheral); M21.371 Foot drop, right foot; L60.3 Nail dystrophy; L60.0 Ingrowing nail; R20.8 Other disturbances of skin sensation | CPT/HCPCS: 11720 ==

== ENCOUNTER → 2024-06-02 11:00 | Outpatient (BNVA) | payer MEDICARE, SELFPAY | PROVIDERS: PCP Nurse Practitioner; Referring Provider Nurse Practitioner; Visit Provider Podiatrist | DX: L60.3 Nail dystrophy (principal); L84 Corns and callosities; I87.2 Venous insufficiency (chronic) (peripheral); M21.371 Foot drop, right foot; G62.9 Polyneuropathy, unspecified; I73.89 Other specified peripheral vascular diseases; L65.9 Nonscarring hair loss, unspecified; R20.8 Other disturbances of skin sensation; R23.8 Other skin changes; L85.8 Other specified epidermal thickening | CPT/HCPCS: 11721 ==

== ENCOUNTER 2024-08-30 06:07 | Inpatient (IN) | payer MEDICARE, SELFPAY ==
[2024-08-30] VITALS (63 sets, daily range): BP systolic 76–111; BP diastolic 36–86; PULSE 55–142; RESP 12–32; TEMP 36.5–37; O2SAT 88–97
--- NOTE | 2024-08-30 06:15 | RT.EKG_ITS ---
APPROVED REPORT Exam: Resting ECG Reason for Exam: fall Patient Location: E HR:79 bpm ECG Measurements Heart Rate 79 AXIS OK [id number] P [id number] QRSd 95 QRS 40 QT 376 T 8 QTc 430 Conclusion Atrial fibrillation...V-rate 56- 85, irreg A-activity Physician: no stemi
--- NOTE | 2024-08-30 06:15 | DI.RAD_ITS ---
Exam(s) XR PORTABLE CHEST AP EXAM: XR PORTABLE CHEST AP CLINICAL HISTORY: cough, sob, hypoxic. TECHNIQUE: 2D digital imaging was performed. COMPARISON: No exams were available for comparison FINDINGS: Single AP portable view. Heart size is upper normal. The mediastinum is not widened. Right lung is clear. There is slightly increased markings in the left lower lobe retrocardiac region . No pleural effusions. The right 6 rib fracture noted. IMPRESSION: Mild increased markings in the left lower lobe. No pleural effusions evident on this single portable AP view. Recommend nonportable PA and lateral views when clinically possible, or alternatively CT s can. DATA REPOSITORY: RADIATION DOSE DELIVERED:
--- NOTE | 2024-08-30 06:30 | ED.GENADUL_ITS ---
Discharge Plan Disposition Patient Disposition: Admit to [facility] Condition: Serious Discharge Details Chief Complaint: GenMedical Clinical Impression: Pneumonia, Acute hypoxemic respiratory failure, Leukocytosis, Sepsis Primary Care Provider: Ingrid Espinosa ED Provider: Regan Chino Home Meds and New Rx's Prescriptions: No Action melatonin 10 mg tablet 10 mg PO HS PRN diclofenac sodium [Voltaren Arthritis Pain] 1 % gel 2 g topical QID PRN zinc 250 mg PO DAILY salon pas patch with lidocaine topical PRN Xyliments PO PRN cyanocobalamin (vitamin B-12) 1 tab PO DAILY diphenhydramine HCl [Benadryl Allergy] 25 mg tablet 25 mg PO PRN calcium carbonate [Tums] 200 mg calcium (500 mg) tablet,chewable 200 mg PO BID PRN mupirocin 2 % ointment 1 applic topical BID Qty: 22 0RF alpha lipoic acid 600 mg capsule 600 mg PO DAILY multivitamin Tablet 1 tab PO DAILY lidocaine 4 % cream 1 applic topical BID PRN naproxen 500 mg tablet 500 mg PO BID PRN (Reason: pain) Qty: 90 0RF Rx Instructions: very rare intermittent use per [facility] neurology Imodium A-D 2 MG tablet,chewable 2 mg PO QID PRN Rx Instructions: As needed. cholecalciferol (vitamin D3) 1,000 UNIT tablet 1,000 unit PO DAILY Qty: 100 Rx Instructions: for bone health C-PAP HS Buildup See Rx Instructions PO Rx Instructions: innumotherapy med from Dr. Cassidy ENT see task dated 08/01/20 cgc Citrucel 500 mg tablet See Rx Instructions PO DAILY Rx Instructions: 2 caps PO daily taken with 8oz fluid; incr by 1 cap qweek as tolerated up to 12 capsules daily. PO daily; (DME) Custom Amara Brace See Rx Instructions .Route .MEDSUPPLY Qty: 1 0RF Rx Instructions: Please measure and fit for a custom Amara Brace to the right ankle to support acquired pes planus deformity from chronic weakness of nerve impairment. Recent injury, surgery, and infection have caused a change to the shape and size of the ankle. (DME) Relief Knee Close Toe Stocking Misc Miscellaneous Qty: 2 12RF Rx Instructions: COMPRESSIONS STOCKINGS, APPLY IN AM AND REMOVE QPM. DX: H/O Venous Embolism (Deep Vessels pf L.E.) I82.90. desonide 0.05 % cream 1 applic Topical BID PRN (Reason: skin irritation) Qty: 30 3RF Rx Instructions: As Directed. Apply topically mix with ketoconazole, under breasts, skin folds. (per [facility] derm) levothyroxine 50 mcg tablet 50 mcg PO DAILY Qty: 90 3RF fluticasone propionate [Flonase Allergy Relief] 50 mcg/actuation spray,suspension 1 spray intranasal BID Qty: 48 3RF Rx Instructions: administer into each nostril cetirizine [Zyrtec] 10 mg tablet 10 mg PO DAILY Qty: 90 3RF nystatin 100,000 unit/gram powder 1 applic TP BID PRN (Reason: rash) Qty: 60 3RF ondansetron HCl 4 mg tablet 4 mg PO BID PRN (Reason: nausea) Qty: 60 3RF ketoconazole 2 % cream 1 applic TP BID PRN (Reason: rash under breasts) Qty: 30 3RF losartan 50 mg tablet 50 mg PO DAILY Qty: 90 3RF gabapentin 300 mg capsule See Rx Instructions PO BID Qty: 270 3RF Rx Instructions: PO twice a day; 300mg in the AMs and 600mg in the PM metoprolol succinate 25 mg tablet extended release 24 hr 25 mg PO DAILY Qty: 90 3RF ezetimibe [Zetia] 10 mg tablet 10 mg PO DAILY Qty: 90 3RF rizatriptan 10 mg tablet See Rx Instructions PO .COMPLEX Qty: 30 3RF Rx Instructions: take 1 tab at onset of headache; if no relief may repeat 1 tab after at least 2 hrs; max = 3 tabs/24 hr PO Xarelto 20 mg tablet 20 mg PO QPM Qty: 90 3RF epinephrine [EpiPen 2-Darrell] 0.3 mg/0.3 mL auto-injector 0.3 mg IM ONCE Qty: 2 6RF Rx Instructions: as a single dose HPI General Date/Time Provider Initiated Documentation: 08/30/24 06:14 . 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 Patient states that for the last couple of days she has been fatigued, has had a cough with productive sputum. She has also had a fever and chills. She has felt more short of breath than normal. She did have a mild fall this evening where she tripped on her foot, but she did not strike her head or any other significant trauma to her body. She recently had a Mohs procedure on the left face. She denies any calf tenderness or significant new leg swelling. She denies any vomiting or diarrhea. She does not smoke. She did in the past. She does not take any breathing treatments, she does use a CPAP at night. She does not use oxygen regularly at home. Related Data Home Medications ?Medication ?Instructions ?Recorded ?Confirmed loperamide 2 mg chewable tablet 2 mg PO QID PRN 08/06/12 08/30/24 (Imodium A-D) cholecalciferol (vitamin D3) 25 1,000 unit PO DAILY #100 tabs 12/17/13 08/30/24 mcg (1,000 unit) tablet C-Pap HS 04/21/14 06/03/24 melatonin 10 mg tablet 10 mg PO HS PRN 05/18/20 08/30/24 Buildup See Rx Instructions PO 08/01/20 06/03/24 calcium carbonate (Tums) 200 mg PO BID PRN 03/21/21 08/30/24 methylcellulose (laxative) 500 mg See Rx Instructions PO DAILY 04/10/21 08/30/24 tablet (Citrucel) [facility] Brace #1 ea 05/15/22 06/03/24 diclofenac sodium 1 % topical gel 2 g topical QID PRN 05/30/22 08/30/24 (Voltaren Arthritis Pain) compress.stocking,knee,reg,lrg #2 ea 06/06/22 06/03/24 (Relief Knee Close Toe Stocking) salon pas patch with lidocaine topical PRN 07/22/22 06/03/24 zinc 250 mg PO DAILY 07/22/22 08/30/24 mupirocin 2 % topical ointment 1 applic topical BID cracking 03/12/23 08/30/24 between toes left foot #22 grams desonide 0.05 % topical cream 1 applic topical BID PRN skin 04/09/23 08/30/24 irritation #30 grams Xyliments PO PRN for dry mouth 09/02/23 06/03/24 cyanocobalamin (vitamin B-12) 1 tab PO DAILY 09/02/23 08/30/24 levothyroxine 50 mcg tablet 50 mcg PO DAILY #90 tab-caps 09/15/23 08/30/24 diphenhydramine HCl 25 mg tablet 25 mg PO PRN 10/20/23 08/30/24 (Benadryl Allergy) fluticasone propionate 50 1 spray intranasal BID #48 grams 11/11/23 08/30/24 mcg/actuation nasal spray,suspension (Flonase Allergy Relief) cetirizine 10 mg tablet (Zyrtec) 10 mg PO DAILY #90 tabs 12/09/23 08/30/24 nystatin 100,000 unit/gram topical 1 applic topical BID PRN rash #60 12/09/23 08/30/24 powder grams naproxen 500 mg tablet 500 mg PO BID PRN pain #90 tabs 03/01/24 08/30/24 alpha lipoic acid 600 mg capsule 600 mg PO DAILY 03/08/24 08/30/24 lidocaine 4 % topical cream 1 applic topical BID PRN 03/08/24 08/30/24 multivitamin 1 tab PO DAILY 03/08/24 08/30/24 ondansetron HCl 4 mg tablet 4 mg PO BID PRN nausea #60 tabs 03/09/24 08/30/24 ketoconazole 2 % topical cream 1 applic topical BID PRN rash 04/13/24 08/30/24 under breasts #30 grams losartan 50 mg tablet 50 mg PO DAILY #90 tabs 05/05/24 08/30/24 gabapentin 300 mg capsule See Rx Instructions PO BID #270 06/21/24 08/30/24 tab-caps ezetimibe 10 mg tablet (Zetia) 10 mg PO DAILY #90 tabs 07/12/24 08/30/24 metoprolol succinate 25 mg 25 mg PO DAILY #90 tabs 07/12/24 08/30/24 tablet,extended release 24 hr rizatriptan 10 mg tablet See Rx Instructions PO .COMPLEX 03/24/25 04/14/25 #30 tabs rivaroxaban 20 mg tablet (Xarelto) 20 mg PO QPM #90 tabs 08/23/24 08/30/24 epinephrine 0.3 mg/0.3 mL 0.3 mg (0.3 mL) IM ONCE #2 ea 08/25/24 08/30/24 injection, auto-injector (EpiPen 2-Darrell) Previous Rx's ?Medication ?Instructions ?Recorded Custom [place] Brace #1 ea 05/15/22 compress.stocking,knee,reg,lrg #2 ea 06/06/22 (Relief Knee Close Toe Stocking) mupirocin 2 % topical ointment 1 applic topical BID cracking 03/12/23 between toes left foot #22 grams desonide 0.05 % topical cream 1 applic topical BID PRN skin 04/09/23 irritation #30 grams levothyroxine 50 mcg tablet 50 mcg PO DAILY #90 tab-caps 09/15/23 fluticasone propionate 50 1 spray intranasal BID #48 grams 11/11/23 mcg/actuation nasal spray,suspension (Flonase Allergy Relief) cetirizine 10 mg tablet (Zyrtec) 10 mg PO DAILY #90 tabs 12/09/23 nystatin 100,000 unit/gram topical 1 applic topical BID PRN rash #60 12/09/23 powder grams naproxen 500 mg tablet 500 mg PO BID PRN pain #90 tabs 03/01/24 ondansetron HCl 4 mg tablet 4 mg PO BID PRN nausea #60 tabs 03/09/24 ketoconazole 2 % topical cream 1 applic topical BID PRN rash 04/13/24 under breasts #30 grams losartan 50 mg tablet 50 mg PO DAILY #90 tabs 05/05/24 gabapentin 300 mg capsule See Rx Instructions PO BID #270 06/21/24 tab-caps ezetimibe 10 mg tablet (Zetia) 10 mg PO DAILY #90 tabs 07/12/24 metoprolol succinate 25 mg 25 mg PO DAILY #90 tabs 07/12/24 tablet,extended release 24 hr rizatriptan 10 mg tablet See Rx Instructions PO .COMPLEX 08/09/24 #30 tabs rivaroxaban 20 mg tablet (Xarelto) 20 mg PO QPM #90 tabs 08/23/24 epinephrine 0.3 mg/0.3 mL 0.3 mg (0.3 mL) IM ONCE #2 ea 08/25/24 injection, auto-injector (EpiPen 2-Darrell) Allergies Allergy/AdvReac Type Severity Reaction Status Date / Time latex Allergy Unknown SKIN RASH Verified 08/30/24 06:21 Penicillins Allergy Unknown per skin Verified 08/30/24 06:21 tests by sales assoc, never had a reaction to Sulfa (Sulfonamide Allergy Unknown Rash Verified 08/30/24 06:21 Antibiotics) gluten AdvReac Mild INTOLERENCE Verified 08/30/24 06:21 codeine AdvReac Other (See Verified 08/30/24 06:21 Comment) adhesive tape Allergy rash Uncoded 08/30/24 06:21 Hydrocodone-Acetaminophen AdvReac Other (See Uncoded 08/30/24 06:21 Comment) General Stated Complaint: GenMedical YARA: 3 Exam Narrative Exam Narrative: 1.Const: Well-nourished, Well-developed, appearing stated age 2.Eyes: PERRL, no conjunctival injection, and symmetrical lids. 3.ENT: Atraumatic external nose and ears. Moist MM. Neck: Symmetric, trachea midline, No thyromegaly. 4.CVS: Systolic murmur is auscultated, +S1/S2, Peripheral pulses 2+ and equal in all extremities. Brisk capillary refill in all extremities. 5.RESP: Unlabored respiratory effort, diffuse crackles and limited breath sounds. 6.GI: Soft, Nontender/Nondistended, No hepatosplenomegaly. No guarding or rebound. 7.MSK: Normocephalic/Atraumatic, Extremities w/o deformity or ttp No cyanosis or clubbing, Normal movement of all extremities 8.Skin: Warm, Dry. No rashes or lesions. 9.Neuro: fashion supervisor II-XII grossly intact. Sensation grossly intact, no focal neurologic deficits. 10.Psych: (AAO) x3. Appropriate mood and affect Course Vital Signs Vital signs: Vital Signs Temperature 37 C 08/30/24 06:12 Pulse 77 08/30/24 06:12 Respiratory Rate 16 08/30/24 06:12 Blood Pressure 104/45 L 08/30/24 06:12 Pulse Oximetry 91 L 08/30/24 06:12 Temperature 37 C 08/30/24 06:12 Temperature Source Oral 08/30/24 06:12 Pulse 77 08/30/24 06:12 Respiratory Rate 16 08/30/24 06:25 Respiratory Effort Normal 08/30/24 06:25 Respiratory Depth Normal 08/30/24 06:25 Respiratory Pattern Normal 08/30/24 06:25 Blood Pressure 104/45 L 08/30/24 06:12 Blood Pressure Position Sitting 08/30/24 06:12 Pulse Oximetry 91 L 08/30/24 06:12 Oxygen Delivery Method Room Air 08/30/24 06:12 Oxygen Flow Rate 0 08/30/24 06:12 Medical Decision Making This is a 74-year-old female with past medical history of chronic lymphocytic leukemia, angiomyolipomas, 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 Patient states that for the last couple of days she has been fatigued, has had a cough with productive sputum. She has also had a fever and chills. She has felt more short of breath than normal. She did have a mild fall this evening where she tripped on her foot, but she did not strike her head or any other significant trauma to her body. She recently had a Mohs procedure on the left face. She denies any calf tenderness or significant new leg swelling. She denies any vomiting or diarrhea. She does not smoke. She did in the past. She does not take any breathing treatments, she does use a CPAP at night. She does not use oxygen regularly at home. Exam demonstrates well-appearing female with notably diminished breath sounds, scattered crackles, who is saturating at 87 to 88% on room air. Concern for pneumonia. PE less likely given her anticoagulant use. With her fever chills and cough I am concerned for bacterial component however there may have been a viral instigator. Will evaluate for these etiologies, give a breathing treatment, start the patient on supplemental oxygen, start the patient on Levaquin out of concern for sepsis and pneumonia. She does have a history of an allergy to penicillins. Will monitor closely and reassess. Plan for admission. Will give 125 Solu-Medrol and a breathing treatment. 7:43 AM Laboratory workup has returned, troponin is normal. Patient has a notably elevated white count at 329, this has been increasing over the last few years but this is quite the exponential jump from the last CBC 5 months ago. Patient has lymphocyte predominance with an absolute lymphocyte count of 317. Patient demonstrates a creatinine drop with a creatinine of 1.5, and a GFR of 36 which is about half of its capability at the last check. Serial troponins are normal. Pending procalcitonin. COVID flu and RSV negative. Out of concern for leukostasis I did reach out to [facility] hematology and spoke with Dr. Bond, and discussed the case including the renal function findings, the white count and lymphocyte count. Hematology states that the likelihood of leukostasis is notably low in the lymphocytic component and that the symptoms at this time do not appear consistent on their review with a leukostasis picture. They recommend continued treatment of the underlying illness, fluids as needed, and then close outpatient follow-up with hematology once this medical component is managed. Will reach out to the hospitalist for admission. 8 AM Patient's blood pressure did drop to 93/39, however heart rate remains stable in the 80s, she has not had a metoprolol dose for 24 hours. With her elevated white count leukocytosis and lymphocytosis, with the borderline low blood pressure we will give a liter fluid bolus, but do a cautiously secondary to her suspected components of CHF. Patient will be admitted to the ICU for further management. I have extensively reviewed the treatment plan with the patient. I have addressed all patient concerns at this time. I have also discussed the plan with the admitting physician and they agree with the current assessment and plan and have agreed to assume responsibility for the patient. All parties demonstrate verbal understanding and agreement with our assessment and plan at this time. The documentation in this chart was dictated using Im[employer]. dictation software. Please excuse any dictation errors. Quality:SDOH Health Related Social Needs: No Data to Display Critical Care Time Critical Care Time Critical Care Time: Yes Total Critical Care Time: 60 Attestation: Upon my evaluation, this patient had a high probability of imminent or life- threatening deterioration, which required my direct attention, intervention, and personal management. I have personally provided 60 minutes of critical care time exclusive of time spent on separately billable procedures. Time includes review of laboratory data, radiology results, discussion with consultants, and monitoring for potential decompensation. Interventions were performed as documented. PFSH All Active Problems Sepsis (Acute) Leukocytosis (Acute) Acute hypoxemic respiratory failure (Acute) Pneumonia (Acute) Squamous cell carcinoma of skin of left cheek (Acute ~08/2024) 08/24/24 Dr Saucedo, [facility] proc Acquired right foot drop (Acute) Venous insufficiency (Acute) Atherosclerosis of artery of both lower extremities (Acute) Peripheral neuropathy (Acute) Callus (Acute) Varicose vein of leg (Acute) Erythema migrans (Lyme disease) (Acute ~09/2022) Cerebral infarction, unspecified (Acute ~08/2022) 08/05/22 CT Scan showed old R frontal opercular infarction. Acquired pes planovalgus of right foot (Acute ~06/2022) Dr Thomas, [facility] Eyelid lesion (Acute ~06/2022) 06/25/22 Oph Bilateral pseudophakia (Acute ~06/2022) 06/25/22 Ophth 08/02/24 f/u visit Pre-diabetes (Acute) Chondrocalcinosis of right knee (Acute) depo medrol 06/06/22 Degenerative joint disease of right knee (Chronic) Most recent Depo-Medrol injection: 06/27/2023 Hypogammaglobulinemia (Acute) 04/24/22 Hem/Onc Radiculopathy, lumbar region (Acute) 03/18/22 Dr Mayer Anticoagulation adequate (Acute) Nail dystrophy (Acute) Plantar fasciitis (Acute) per xr Pre-diabetes (Acute) Post-menopause (Acute) Bilateral nephrolithiasis (Acute 03/05/21) non-obstructing 03/24/23 Cystoscopy at Wound of right ankle (Acute) Mobility impaired (Acute) Subcutaneous nodule (Acute) Fibromyalgia (Acute) Family history of breast cancer (Acute) History of DVT (deep vein thrombosis) (Acute) Pain due to varicose veins of lower extremity (Acute) Fecal incontinence (Acute 05/26/20) IBS (irritable bowel syndrome) (Chronic 05/26/20) Impaired fasting glucose (Acute 07/09/11) Angiomyolipoma of both kidneys (Acute) cystoscopy 03/2013, 02/22/20-[facility] urology note. Coleman Du MD. 02/2020 normal cystoscopy followed by Dr. Du [facility] urology. 04/14/24 Urology visit Left breast lump (Acute) Atrial fibrillation (Chronic 11/29/19) Obesity (Chronic) Depressive disorder (Chronic 03/18/97) Primary osteoarthritis of both hips (Acute) [facility] Ortho Right hip pain (Acute) Postnasal drip (Acute 07/05/13) Allergic rhinitis (Acute 07/05/13) Brachial plexus disorders (Acute 07/09/11) Migraine (Acute 02/15/98) Chronic headache (Chronic) Dr. Mayer Lumbar radiculopathy, chronic (Chronic) Donovan Mayer mD Weakness of foot (Acute) weak leg & R foot drop due to LS disc problems Seasonal allergic rhinitis (Acute 10/29/12) RESPONSIVE TO LORATADINE/FLONASE Osteoarthritis, hip, bilateral (Acute 06/07/14) ortho: Dr Salcido, [facility] Obstructive sleep apnea, adult (Acute 05/19/90) CPAP initially sleep lab [facility] 04/2020 Amy Crocker Morbid obesity (Acute 07/09/11) goal: 230 (10% less than 11/2014 wt) Hypothyroidism (Acute 05/04/12) Hyperlipidemia (Acute 06/19/02) Simvastatin begun 10/2006 failed on lifestyle alone, goal LDL <130 then Hypercoagulable state, primary (Acute) h/o w/u [facility] 12/2011; rec wt loss and aggressive prophylaxis for immobilization H/O malignant carcinoid tumor of stomach (Acute 02/16/07) GASTRIC CARCINOID, [facility], [facility], EGD 06/01/09; RPT Q 2 YR EGD 08/19/17 Dr Quinn >20 hyperplastic gastric polyps Gastroesophageal reflux disease (Acute 07/09/11) Flat feet, bilateral (Acute 12/31/16) brace right leg, insert left foot Chronic pain (Acute 10/19/01) rarely opioid; uses cymbalta for chronic foot, back, sometimes head pain; aft er disc rupture 10/2001 [facility] Chronic lymphocytic leukemia (Acute) [facility] hematology consult note 10/09/17 [facility] hem/onc f/u note 02/22/21 Benign hypertension (Acute 06/19/02) Signed copy of advance directive in patient notes (Acute 07/09/11) Medical History (Updated 08/30/24 @ 08:02 by Regan R Madison, DO) Astigmatism of both eyes with presbyopia (~07/2024) 08/02/24 Ophth Lesion of upper eyelid (~07/2024) 08/02/24 Ophth - MELISSA - being monitored Lesion of skin of cheek (~07/2024) 07/26/24 seen by Derm, shave bx done Lentigines 07/08/22 Derm Multiple nevi 07/08/22 Derm Seborrheic keratoses 07/08/22 Derm Actinic keratoses 07/08/22 Derm and had cryotherapy tp L Cheek Closed displaced comminuted fracture of shaft of right fibula 11/02/20-[facility].scheduled for OR on 11/06/20. Farnaz Acuña APRN Tick bite Abnormality of nail tissue Insect sting Insect sting allergy, current reaction Right thigh pain Undiagnosed cardiac murmurs (05/05/02) Allergic fungal sinusitis (10/04/13) Postmenopausal bleeding (06/11/11) Primary stomach malignant carcinoid tumor resection 2006 GERD (gastroesophageal reflux disease) Angiomyolipoma of kidney 12/13/19 F/u [facility] Urology Chronic diarrhea Chronic pain syndrome Obesity (BMI 30-39.9) Systolic murmur Hyperlipidemia Headache DVT (deep venous thrombosis) Weakness of foot Sleep apnea Thoracic outlet syndrome Depression with anxiety Surgical History Status post ORIF of fracture of ankle (11/06/20) fixation left ankle, [facility] 2007 disc surgery 2006 section 1986 EGD - MAC (08/19/17) 2012-walko 2009 2006 EGD - [facility] (07/22/16) 2012-walko 2009 2006 Dilation and curettage 2004 Correction, [place] 2005- Dr. Clement Colonoscopy - [facility] (07/22/16) Cholecystectomy Laparoscopic-2006 Extraction of cataract Bilateral-2007 Family History Mother , sepsis at age 84. Diabetes Essential hypertension Fibromyalgia Heart disease Hyperlipidemia Sepsis Father , copd at age 79. Essential hypertension COPD (chronic obstructive pulmonary disease) Heart disease Hyperlipidemia Sister Breast cancer post-menopausal Brother , suicide at age 31. Mental disorder Paternal Aunt Breast cancer post-menopausal Other Alcohol abuse Lyme disease Prostate cancer Social History Smoking/Tobacco Use Status: Never Second Hand Exposure: No Smoking risk assessment performed?: Yes Alcohol Intake: current Alcohol Intake frequency: a few times a month Drug use: Never Substance use type: does not use Adopted: No Caregiver/Support person: No Foster care: No Household members: none Housing: house Number of Children: 1 number of grandchildren: 0 Communication Needs: Corrective Lenses Education Level: master's degree Do you need help understanding health information?: Never current occupation: Retired Pets and animals: Yes Pets and animals: cat(s) and dog(s) Sexually active: No Do you think of yourself as: straight/heterosexual Current gender identity: female What is your relationship status?: How often do you talk on the phone with friends or family?: three or more times per week How often do you get together with friends or relatives?: twice per week Do you belong to any clubs or organized social groups?: yes Panel score (0-1 are the most socially isolated patients): 2 What type of physical activity do you participate in: walking Duration: 45-60 minutes/day Frequency: daily Dolores/Yazdanism: Tenriism Special dolores needs: No Agree to transfusion: Yes Seatbelt use: always Helmet use: Yes Helmet use: other Details: Not needed Drive intox or ride w/intox 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
[2024-08-30 06:46] LABS: BE (Venous) 3 mmol/L (-2-3); HCO3 (Venous) 27 mmol/L (23-28); Lactate 1.6 mmol/L (<or=2.0); O2 Sat (Venous) 85 %; TCO2 (Venous) 24 mmol/L (24-29); pCO2 (Venous) 39 mmHg (41-51); pH (Venous) 7.44 (7.31-7.41); pO2 (Venous) 47 mmHg
[2024-08-30 06:47] LABS: Abs Immature Grans 0.51 10^3/uL (0.0-0.06); HGB 11.5 g/dL (11.2-15.7); Immature Grans % 0.2 %; Lymphocytes % 96.2 %; MCH 25.7 pg (27.0-33.0); MCHC 26.7 % (32.0-36.0); MCV 96 fL (80-95); MPV 10.6 fL (8.0-11.0); Monocytes % 1.5 %; Neutrophils % 2.1 %; Platelet Count 177 10^3/uL (130-400); RBC 4.47 10^6/uL (3.93-5.22); RDW 17.9 % (11.7-14.6); RDW-SD 50.4 fL
[2024-08-30] MEDS: levoFLOXacin 750 MG/150 ML BAG 100 MG IVPB (06:48)
[2024-08-30] MEDS: Albuterol/Ipratropium 3 ML UPD VIAL UPD (06:48)
[2024-08-30] MEDS: methylPREDNISolone SUCC 125 MG VIAL IVP (06:48)
[2024-08-30 06:50] LABS: Absolute Monocyte Count 4.95 10^3/uL (0.1-0.8); Absolute Neutrophil Count 6.93 10^3/uL (1.2-6.7)
[2024-08-30 06:54] LABS: WBC 329.97 10^3/uL (4.4-10.8)
[2024-08-30 07:02] LABS: INR 1.6 (0.9-1.1); Prothrombin Time 15.4 sec (9.1-11.1)
[2024-08-30 07:10] LABS: Diff Comment Agrees w/ Instrument
[2024-08-30 07:11] LABS: Hypochromasia 1+
[2024-08-30 07:18] LABS: ALT 19 U/L (14-59); AST 33 U/L (15-37); Albumin 3.7 g/dL (3.4-5.0); Alkaline Phosphatase 99 U/L (46-116); Anion Gap 9.9 mmol/L (3-11); BUN 22 mg/dL (7-18); Bilirubin, Total 0.8 mg/dL (0.2-1.0); CO2 27.1 mmol/L (21.0-32.0); CREATININE 1.5 mg/dL (0.55-1.02); Calcium 9.8 mg/dL (8.5-10.1); Chloride 105 mmol/L (98-107); Estimated GFR 36.12 (mL/min/1.73m2); Glucose 134 mg/dL (74-106); NT-proBNP 4468 pg/mL (<300); Potassium 4.8 mmol/L (3.5-5.1); Sodium 142 mmol/L (136-145); Total Protein 6.7 g/dL (6.4-8.2); Troponin I 19 ng/L (<or=51)
[2024-08-30 07:24] LABS: COVID-19 PCR Negative (Negative); Influenza A PCR Negative (Negative); Influenza B PCR Negative (Negative); RSV PCR Negative (Negative); Source Nasopharynx
[2024-08-30] MEDS: Normal Saline 1,000 ML 1000 ML IV (07:36)
[2024-08-30 07:48] LABS: Procalcitonin 5.65 ng/mL
--- NOTE | 2024-08-30 08:07 | DI.VRAD_ITS ---
PROCEDURE INFORMATION: Exam: XR Chest Exam date and time: 08/30/2024 6:49 AM Age: 74 years old Clinical indication: Cough and shortness of breath; Cough, SOB, hypoxia TECHNIQUE: Imaging protocol: Radiologic exam of the chest. Views: 1 view. COMPARISON: CT ABDOMEN PELVIS WO/W 03/14/2023 10:03 AM FINDINGS: Lungs: Lungs are well aerated without a focal area of consolidation. Pleural spaces: Unremarkable. No pleural effusion. No pneumothorax. Heart/Mediastinum: The cardiac silhouette appears enlarged, some of which is magnification related to the AP projection. Bones/joints: Old 6th rib fracture posteriorly on the right IMPRESSION: Lungs are well aerated without a focal area of consolidation. Dictated and Authenticated by: Lcaho Corbin MD. Orderin Lulú Spears MD
--- NOTE | 2024-08-30 08:12 | W.PM.HP.N ---
Date of service: 08/30/24 Time of Service: 08:12 Assessment and Plan Assessment and plan (1) Severe sepsis: Status: Acute Assessment and plan: Meets criteria with elevated RR, WBC, and FUNMILAYO in setting of pnuemonia. HR not up, but on metoprolol. Blood cultures pending. BPs have been soft in ED, getting fluids. Consider norepinephrine if MAPs don't increase to >65 On chronic oral budesonide, which doesn't typically but can suppress adrenal function, send cortisol and cover with hydrocortisone for now. Will monitor closely in ICU (2) Pneumonia: Status: Acute Assessment and plan: PCN allergy, started on levofloxacin, will continue this. As above. CXR not the most clear, some dark marvel sputum, consider CT if not improving (3) Acute hypoxemic respiratory failure: Status: Acute Assessment and plan: New hypoxia a/w pneumonia. Now stable on 2 liters NC. No h/o smoking or asthma/COPD but she is wheezing and responded to duoneb, continue this (4) Chronic lymphocytic leukemia: Status: Acute Assessment and plan: WBC dramatic, but no immediate risk given lymphocytosis per Heme/Onc. Her WBC represents a doubling of previous level a/w her acute illness. We should see improvement with treatment. Heme/onc at [facility] was consulted in the ED and will see the patient on f/u s (5) Hypertension: Status: None Assessment and plan: BPs soft, holding losartan and metoprolol (6) Acute kidney injury: Status: Acute Assessment and plan: Cr 1.5 up from 0.7 with sepsis/pneumonia. Likely pre-renal. Hydration, hold ARB, follow (7) History of DVT (deep vein thrombosis): Status: Acute Assessment and plan: Recurrent, no specific condition noted on hypercoagulability work up. On chronic apixaban. (8) Atrial fibrillation: Status: Chronic Assessment and plan: On metoprolol low dose and apixaban. Holding metoprolol (9) Chronic diarrhea: Assessment and plan: Lymphocytic colitis. On oral budesonide per GI, avoid NSAIDs. 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 She first had symptoms Monday 08/28 with sore throat and some cough, fatigue. Yesterday 08/29 she started having fevers and chills off and on all day. This morning she was feeling weak and stumbled falling back on her bed when she was trying to get up, so ended up calling EMS. Her cough has been productive, dark red color just starting after arriving here. No chest pain. She isn't dizzy, no focal numbness or weakness. She has been hoarse, but not significant rhinorrhea. She has had poor appetite and hasn't been drinking a lot. She did take naproxen once yesterday for fever/body aches, but tried to avoid this. She never smoked and does not have any chronic lung disease, but the nebulizer did help her SOB in the ED. No recent travel, known exposures, or sick contact, though she was at [facility] for Mohs surgery on her face for SSC of the skin 6 days ago. Her daughter was last with her then and her daughter is also not feeling well. No recent changes to medications. She does take budesonide starting 5-6 weeks ago for her lymphocytic colitis which is well controlled now. Review of Systems All systems reviewed & are unremarkable except as noted in HPI and below PFSH All Active Problems Severe sepsis (Acute) Acute kidney injury (Acute) Sepsis (Acute) Leukocytosis (Acute) Acute hypoxemic respiratory failure (Acute) Pneumonia (Acute) Squamous cell carcinoma of skin of left cheek (Acute ~08/2024) 08/24/24 Dr Saucedo, [facility] proc Acquired right foot drop (Acute) Venous insufficiency (Acute) Atherosclerosis of artery of both lower extremities (Acute) Peripheral neuropathy (Acute) Callus (Acute) Varicose vein of leg (Acute) Erythema migrans (Lyme disease) (Acute ~09/2022) Cerebral infarction, unspecified (Acute ~08/2022) 08/05/22 CT Scan showed old R frontal opercular infarction. Acquired pes planovalgus of right foot (Acute ~06/2022) Dr Thomas, [facility] Eyelid lesion (Acute ~06/2022) 06/25/22 Ophth Bilateral pseudophakia (Acute ~06/2022) 06/25/22 Oph 08/02/24 f/u visit Pre-diabetes (Acute) Chondrocalcinosis of right knee (Acute) depo medrol 06/06/22 Degenerative joint disease of right knee (Chronic) Most recent Depo-Medrol injection: 06/27/2023 Hypogammaglobulinemia (Acute) 04/24/22 Hem/Onc Radiculopathy, lumbar region (Acute) 03/18/22 Dr Mayer Anticoagulation adequate (Acute) Nail dystrophy (Acute) Plantar fasciitis (Acute) per xr Pre-diabetes (Acute) Post-menopause (Acute) Bilateral nephrolithiasis (Acute 03/05/21) non-obstructing 03/24/23 Cystoscopy at Wound of right ankle (Acute) Mobility impaired (Acute) Subcutaneous nodule (Acute) Fibromyalgia (Acute) Family history of breast cancer (Acute) History of DVT (deep vein thrombosis) (Acute) Pain due to varicose veins of lower extremity (Acute) Fecal incontinence (Acute 05/26/20) IBS (irritable bowel syndrome) (Chronic 05/26/20) Impaired fasting glucose (Acute 07/09/11) Angiomyolipoma of both kidneys (Acute) cystoscopy 03/2013, 02/22/20-[facility] [place]. Coleman Du MD. 02/2020 normal cystoscopy followed by Dr. Du [facility] urology. 04/14/24 Urology visit Left breast lump (Acute) Atrial fibrillation (Chronic 11/29/19) Obesity (Chronic) Primary osteoarthritis of both hips (Acute) [facility] Right hip pain (Acute) Postnasal drip (Acute 07/05/13) Allergic rhinitis (Acute 07/05/13) Brachial plexus disorders (Acute 07/09/11) Depressive disorder (Chronic 03/18/97) Migraine (Acute 02/15/98) Chronic headache (Chronic) Dr. Mayer Lumbar radiculopathy, chronic (Chronic) Donovan Mayer mD Weakness of foot (Acute) weak leg & R foot drop due to LS disc problems Seasonal allergic rhinitis (Acute 10/29/12) RESPONSIVE TO LORATADINE/FLONASE Osteoarthritis, hip, bilateral (Acute 01/20/15) ortho: Dr Salcido, [facility] Obstructive sleep apnea, adult (Acute 05/19/90) CPAP initially sleep lab [facility] 04/2020 Amy Crocker Morbid obesity (Acute 07/09/11) goal: 230 (10% less than 11/2014 wt) Hypothyroidism (Acute 05/04/12) Hyperlipidemia (Acute 06/19/02) Simvastatin begun 10/2006 failed on lifestyle alone, goal LDL <130 then Hypercoagulable state, primary (Acute) h/o w/u [facility] 12/2011; rec wt loss and aggressive prophylaxis for immobilization H/O malignant carcinoid tumor of stomach (Acute 02/16/07) GASTRIC CARCINOID, [facility], [facility], EGD 06/01/09; RPT Q 2 YR EGD 08/19/17 Dr Quinn >20 hyperplastic gastric polyps Gastroesophageal reflux disease (Acute 07/09/11) Flat feet, bilateral (Acute 12/31/16) brace right leg, insert left foot Chronic pain (Acute 10/19/01) rarely opioid; uses cymbalta for chronic foot, back, sometimes head pain; after disc rupture 10/2001 [facility] Chronic lymphocytic leukemia (Acute) [facility] hematology consult note 10/09/17 [facility] hem/onc f/u note 02/22/21 Benign hypertension (Acute 06/19/02) Signed copy of advance directive in patient notes (Acute 07/09/11) Medical History Astigmatism of both eyes with presbyopia (~07/2024) 08/02/24 Ophth Lesion of upper eyelid (~07/2024) 08/02/24 Ophth - MELISSA - being monitored Lesion of skin of cheek (~07/2024) 07/26/24 seen by Derm, shave bx done Lentigines 07/08/22 Derm Multiple nevi 07/08/22 Derm Seborrheic keratoses 07/08/22 Derm Actinic keratoses 07/08/22 Derm and had cryotherapy tp L Cheek Closed displaced comminuted fracture of shaft of right fibula 11/02/20-[facility].scheduled for OR on 11/06/20. Farnaz Acuña APRN Tick bite Abnormality of nail tissue Insect sting Insect sting allergy, current reaction Right thigh pain Undiagnosed cardiac murmurs (05/05/02) Allergic fungal sinusitis (10/04/13) Postmenopausal bleeding (06/11/11) Primary stomach malignant carcinoid tumor resection 2006 GERD (gastroesophageal reflux disease) Angiomyolipoma of kidney 12/13/19 F/u [facility] Urology Chronic diarrhea Chronic pain syndrome Obesity (BMI 30-39.9) Systolic murmur Hyperlipidemia Headache DVT (deep venous thrombosis) Weakness of foot Sleep apnea Thoracic outlet syndrome Depression with anxiety Surgical History Status post ORIF of fracture of ankle (11/06/20) fixation left ankle, [facility] 2007 disc surgery 2005 section 1986 EGD - MAC (08/19/17) walko 2009 2006 EGD - MAC (07/22/16) walko 2009 2006 Dilation and curettage 2004 Correction, Sach[place] 2005- Dr. Clement Colonoscopy - MAC (07/22/16) Cholecystectomy Laparoscopic-2006 Extraction of cataract Bilateral-2007 Family History Mother , sepsis at age 84. Diabetes Essential hypertension Fibromyalgia Heart disease Hyperlipidemia Sepsis Father , copd at age 79. Essential hypertension COPD (chronic obstructive pulmonary disease) Heart disease Hyperlipidemia Sister Breast cancer post-menopausal Brother , suicide at age 31. Mental disorder Paternal Aunt Breast cancer post-menopausal Other Alcohol abuse Lyme disease Prostate cancer Social History (Updated 08/30/24 @ 09:30 by Coleman David) Smoking/Tobacco Use Status: Never Second Hand Exposure: No Smoking risk assessment performed?: Yes Alcohol Intake: current Alcohol Intake frequency: a few times a month Drug use: Never Substance use type: does not use Adopted: No Caregiver/Support person: No Foster care: No Household members: none Housing: house Number of Children: 1 number of grandchildren: 0 Communication Needs: Corrective Lenses Education Level: master's degree Do you need help understanding health information?: Never current occupation: Retired Pets and animals: Yes Pets and animals: cat(s) and dog(s) Sexually active: No Do you think of yourself as: straight/heterosexual Current gender identity: female What is your relationship status?: How often do you talk on the phone with friends or family?: three or more times per week How often do you get together with friends or relatives?: twice per week Do you belong to any clubs or organized social groups?: yes Panel score (0-1 are the most socially isolated patients): 2 What type of physical activity do you participate in: walking Duration: 45-60 minutes/day Frequency: daily Dolores/Muslim: Buddhism Special dolores needs: No Agree to transfusion: Yes Seatbelt use: always Helmet use: Yes Helmet use: other Details: Not needed Drive intox or ride w/intox 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 Daughter in [facility]. Dog at home, no birds Meds Allergies and Home Medications Allergies Allergy/AdvReac Type Severity Reaction Status Date / Time latex Allergy Unknown SKIN RASH Verified 08/30/24 06:21 Penicillins Allergy Unknown per skin Verified 08/30/24 06:21 tests by theatrical scenic designer, never had a reaction to Sulfa (Sulfonamide Allergy Unknown Rash Verified 08/30/24 06:21 Antibiotics) gluten AdvReac Mild INTOLERENCE Verified 08/30/24 06:21 codeine AdvReac Other (See Verified 08/30/24 06:21 Comment) adhesive tape Allergy rash Uncoded 08/30/24 06:21 Hydrocodone-Acetaminophen AdvReac Other (See Uncoded 08/30/24 06:21 Comment) Home Medications ?Medication ?Instructions ?Recorded ?Confirmed ?Type loperamide 2 mg chewable tablet 2 mg PO QID PRN 08/06/12 08/30/24 History (Imodium A-D) cholecalciferol (vitamin D3) 25 1,000 unit PO DAILY #100 tabs 12/17/13 08/30/24 History mcg (1,000 unit) tablet C-Pap HS 04/21/14 06/03/24 History melatonin 10 mg tablet 10 mg PO HS PRN 05/18/20 08/30/24 History Buildup See Rx Instructions PO 08/01/20 06/03/24 History calcium carbonate (Tums) 200 mg PO BID PRN 03/21/21 08/30/24 History methylcellulose (laxative) 500 mg See Rx Instructions PO DAILY 04/10/21 08/30/24 History tablet (Citrucel) Custom [place] Brace #1 ea 05/15/22 06/03/24 Rx diclofenac sodium 1 % topical gel 2 g topical QID PRN 05/30/22 08/30/24 History (Voltaren Arthritis Pain) compress.stocking,knee,reg,lrg #2 ea 06/06/22 06/03/24 Rx (Relief Knee Close Toe Stocking) salon pas patch with lidocaine topical PRN 07/22/22 06/03/24 History zinc 250 mg PO DAILY 07/22/22 08/30/24 History mupirocin 2 % topical ointment 1 applic topical BID cracking 03/12/23 08/30/24 Rx between toes left foot #22 grams desonide 0.05 % topical cream 1 applic topical BID PRN skin 04/09/23 08/30/24 Rx irritation #30 grams Xyliments PO PRN for dry mouth 09/02/23 06/03/24 History cyanocobalamin (vitamin B-12) 1 tab PO DAILY 09/02/23 08/30/24 History levothyroxine 50 mcg tablet 50 mcg PO DAILY #90 tab-caps 09/15/23 08/30/24 Rx diphenhydramine HCl 25 mg tablet 25 mg PO PRN 10/20/23 08/30/24 History (Benadryl Allergy) fluticasone propionate 50 1 spray intranasal BID #48 grams 11/11/23 08/30/24 Rx mcg/actuation nasal spray,suspension (Flonase Allergy Relief) cetirizine 10 mg tablet (Zyrtec) 10 mg PO DAILY #90 tabs 12/09/23 08/30/24 Rx nystatin 100,000 unit/gram topical 1 applic topical BID PRN rash #60 12/09/23 08/30/24 Rx powder grams naproxen 500 mg tablet 500 mg PO BID PRN pain #90 tabs 03/01/24 08/30/24 Rx alpha lipoic acid 600 mg capsule 600 mg PO DAILY 03/08/24 08/30/24 History lidocaine 4 % topical cream 1 applic topical BID PRN 03/08/24 08/30/24 History multivitamin 1 tab PO DAILY 03/08/24 08/30/24 History ondansetron HCl 4 mg tablet 4 mg PO BID PRN nausea #60 tabs 03/09/24 08/30/24 Rx ketoconazole 2 % topical cream 1 applic topical BID PRN rash 04/13/24 08/30/24 Rx under breasts #30 grams losartan 50 mg tablet 50 mg PO DAILY #90 tabs 05/05/24 08/30/24 Rx gabapentin 300 mg capsule See Rx Instructions PO BID #270 06/21/24 08/30/24 Rx tab-caps ezetimibe 10 mg tablet (Zetia) 10 mg PO DAILY #90 tabs 07/12/24 08/30/24 Rx metoprolol succinate 25 mg 25 mg PO DAILY #90 tabs 07/12/24 08/30/24 Rx tablet,extended release 24 hr rizatriptan 10 mg tablet See Rx Instructions PO .COMPLEX 08/09/24 08/30/24 Rx #30 tabs rivaroxaban 20 mg tablet (Xarelto) 20 mg PO QPM #90 tabs 08/23/24 08/30/24 Rx epinephrine 0.3 mg/0.3 mL 0.3 mg (0.3 mL) IM ONCE #2 ea 08/25/24 08/30/24 Rx injection, auto-injector (EpiPen 2-Darrell) Exam Narrative Exam Narrative: GEN: Alert and oriented x 4, pleasant and cooperative, gives linear history. No acute distress at rest. HEENT: Head atraumatic x surgical wound left hinduism. Conjunctiva clear, no icterus. PEERL, EOMI. no rhinorrhea. MMM, OP benign. Neck is supple with no masses or lymphadenopathy, trachea midline LUNGS: Diffuse coarse breath sounds and slight expiratory wheeze, mild rales left base. Mild tachypnea with movement in bed, speaking in full sentances. CV: RRR with 3/6 systolic murmur, no gallops, or rubs. ABD: active bowel sounds, soft, nontender and nondistended. No masses. EXT: no cyanosis, clubbing. Trace erica ankle edema MSK: No joint redness or swelling NEURO: CN 2-12 grossly intact. Normal movement of 4 extremities. Normal speech and coordination. No tremor SKIN: No rashes or open wounds other than surgical wound left hinduism, not red or draining PSYCH: normal mood and affect, nl thought process Results Imaging Chest x-ray: report reviewed (Mild increased markings in the left lower lobe. No pleural effusions evident on this single portable AP view. Recommend nonportable PA and lateral views when clinically possible, or alternatively CT scan.) and image reviewed EKG: report reviewed and image reviewed (atrial fibrillation, rate 78, nl axis, intervals, no ST-T abnormalities) Labs 08/30/24 06:35 08/30/24 06:35 Labs: Laboratory Results - last 24 hr 08/30/24 08/30/24 06:25 06:35 WBC 329.97 H* RBC 4.47 Hgb 11.5 Hct 43.0 MCV 96 H MCH 25.7 L MCHC 26.7 L RDW 17.9 H Plt Count 177 MPV 10.6 Immature Gran % 0.2 Neutrophils % 2.1 Lymphocytes % 96.2 Monocytes % 1.5 Eosinophils % 0.0 Basophils % 0.0 Nucleated RBC % 0.0 Absolute Neutrophils 6.93 H Absolute Lymphocytes 317.43 H Absolute Monocytes 4.95 H Absolute Eosinophils 0.00 Absolute Basophils 0.00 RBC Morphology See Below Hypochromasia 1+ PT 15.4 H INR 1.6 H APTT 35.0 H VBG pH 7.44 H VBG pCO2 39 L VBG pO2 47 VBG HCO3 27 VBG Total CO2 24 VBG O2 Saturation 85 VBG Base Excess 3 VBG Lactate 1.6 Sodium 142 Potassium 4.8 Chloride 105 Carbon Dioxide 27.1 Anion Gap 9.9 BUN 22 H Creatinine 1.5 H Est GFR (CKD-EPI 2020) 36.12 Glucose 134 H Calcium 9.8 Total Bilirubin 0.8 AST 33 ALT 19 Alkaline Phosphatase 99 Troponin I 19 NT-Pro-B Natriuret Pep 4468 H Total Protein 6.7 Albumin 3.7 Procalcitonin 5.65 COVID-19 Source Nasopharynx SARS-CoV-2 (PCR) Negative Influenza Type A (PCR) Negative Influenza Type B (PCR) Negative RSV (PCR) Negative Last Vital Signs Temp 37 C 08/30/24 06:12 Pulse 72 08/30/24 07:05 Resp 21 08/30/24 07:05 BP 92/40 L 08/30/24 07:05 Pulse Ox 92 08/30/24 07:05 Time Spent Time spent with Patient: >75 minutes Time was spent: preparing to see the patient(eg.review tests), obtaining and/or reviewing separately otained hiistory, ordering medications,tests, procedures, referring, communicating with other health healthcare science specialist, indepentently interpreting results, counseling the patient and care coordination
[2024-08-30 09:06] LABS: Troponin I 16 ng/L (<or=51)
--- NOTE | 2024-08-30 09:42 | W.PC.ACHO ---
Registration Status: Primary Language: Preferred Language: ED Information & Data Chief Complaint GenMedical 08/30/24 06:31 Triage Note not feeling well for a 08/30/24 06:12 couple days, fell this morning, getting out of bed lost her footing, no LOC, no new physical complaints, want s to be seen this morning for general illness and productive cough Medical / Surgical History (Last Reviewed 08/30/24 @ 09:29 by [place] David) Astigmatism of both eyes with presbyopia (~07/2024) Lesion of upper eyelid (~07/2024) Lesion of skin of cheek (~07/2024) Lentigines Multiple nevi Seborrheic keratoses Actinic keratoses Closed displaced comminuted fracture of shaft of right fibula Tick bite Abnormality of nail tissue Insect sting Insect sting allergy, current reaction Right thigh pain Undiagnosed cardiac murmurs (05/05/02) Allergic fungal sinusitis (10/04/13) Postmenopausal bleeding (06/11/11) Primary stomach malignant carcinoid tumor GERD (gastroesophageal reflux disease) Angiomyolipoma of kidney Chronic diarrhea Chronic pain syndrome Obesity (BMI 30-39.9) Systolic murmur Hyperlipidemia Headache DVT (deep venous thrombosis) Weakness of foot Sleep apnea Thoracic outlet syndrome Depression with anxiety (Last Reviewed 08/30/24 @ 09:29 by [place] David) Status post ORIF of fracture of ankle (11/06/20) endoscopic US disc surgery section EGD - MAC (08/19/17) EGD - MAC (07/22/16) Dilation and curettage Correction, [place] Colonoscopy - MAC (07/22/16) Cholecystectomy Extraction of cataract Most Recent Vital Signs Temperature 37 C 08/30/24 06:12 Temperature Source Oral 08/30/24 06:12 Pulse 72 08/30/24 09:30 Pulse 72 08/30/24 09:30 Respiratory Rate 18 08/30/24 09:30 Respiratory Effort Normal 08/30/24 06:25 Respiratory Depth Normal 08/30/24 06:25 Respiratory Pattern Normal 08/30/24 06:25 Blood Pressure 95/43 L 08/30/24 09:21 Blood Pressure Mean 61 08/30/24 09:21 Blood Pressure Position Sitting 08/30/24 06:12 Pulse Oximetry 94 08/30/24 09:30 Oxygen Delivery Method Room Air 08/30/24 06:12 Oxygen Flow Rate 0 08/30/24 06:12 Allergies latex Allergy (Unknown, Verified 08/30/24 06:21) SKIN RASH Penicillins Allergy (Unknown, Verified 08/30/24 06:21) per skin tests by collection specialist, never had a reaction to Sulfa (Sulfonamide Antibiotics) Allergy (Unknown, Verified 08/30/24 06:21) Rash gluten Adverse Reaction (Mild, Verified 08/30/24 06:21) INTOLERENCE codeine Adverse Reaction (Verified 08/30/24 06:21) Other (See Comment) NIGHTMARES adhesive tape Allergy (Uncoded 08/30/24 06:21) rash Hydrocodone-Acetaminophen Adverse Reaction (Uncoded 08/30/24 06:21) Other (See Comment) pt unsure of reaction Precautions Isolation Standard precaution 08/30/24 06:19 IV IV Catheter Type [Right Saline Lock Antecubital] IV Catheter Gauge [Right 18 Antecubital] Diet Orders Category Date Time Status Regular/Normal [DIET] Nutrition 08/30/24 Lunch Active Diagnostics 08/30/24 08/30/24 08/30/24 Range/Units 09:25 07:30 06:35 WBC 329.97 H* (4.4-10.8) 10^3/uL RBC 4.47 (3.93-5.22) 10^6/uL Hgb 11.5 (11.2-15.7) g/dL Hct 43.0 (36.0-46.0) % MCV 96 H (80-95) fL MCH 25.7 L (27.0-33.0) pg MCHC 26.7 L (32.0-36.0) % RDW 17.9 H (11.7-14.6) % Plt Count 177 (130-400) 10^3/uL MPV 10.6 (8.0-11.0) fL Immature Gran % 0.2 % Neutrophils % 2.1 % Lymphocytes % 96.2 % Monocytes % 1.5 % Eosinophils % 0.0 % Basophils % 0.0 % Nucleated RBC % 0.0 (0.0-0.3) % Absolute Neutrophils 6.93 H (1.2-6.7) 10^3/uL Absolute Lymphocytes 317.43 H (1.2-3.4) 10^3/uL Absolute Monocytes 4.95 H (0.1-0.8) 10^3/uL Absolute Eosinophils 0.00 (0.0-0.7) 10^3/uL Absolute Basophils 0.00 (0.0-0.2) 10^3/uL RBC Morphology See Below Hypochromasia 1+ PT 15.4 H (9.1-11.1) sec INR 1.6 H (0.9-1.1) APTT 35.0 H (20.6-30.2) sec VBG pH 7.44 H (7.31-7.41) VBG pCO2 39 L (41-51) mmHg VBG pO2 47 mmHg VBG HCO3 27 (23-28) mmol/L VBG Total CO2 24 (24-29) mmol/L VBG O2 Saturation 85 % VBG Base Excess 3 (-2-3) mmol/L VBG Lactate 1.6 (<or=2.0) mmol/L Sodium 142 (136-145) mmol/L Potassium 4.8 (3.5-5.1) mmol/L Chloride 105 (98-107) mmol/L Carbon Dioxide 27.1 (21.0-32.0) mmol/L Anion Gap 9.9 (3-11) mmol/L BUN 22 H (7-18) mg/dL Creatinine 1.5 H (0.55-1.02) mg/dL Est GFR (CKD-EPI 2020) 36.12 (mL/min/1.73m2) Glucose 134 H (74-106) mg/dL Calcium 9.8 (8.5-10.1) mg/dL Total Bilirubin 0.8 (0.2-1.0) mg/dL AST 33 (15-37) U/L ALT 19 (14-59) U/L Alkaline Phosphatase 99 (46-116) U/L Troponin I Pending 16 19 (<or=51) ng/L NT-Pro-B Natriuret Pep 4468 H (<300) pg/mL Total Protein 6.7 (6.4-8.2) g/dL Albumin 3.7 (3.4-5.0) g/dL Procalcitonin 5.65 ng/mL Cortisol Pending COVID-19 Source SARS-CoV-2 (PCR) (Negative) Influenza Type A (PCR) (Negative) Influenza Type B (PCR) (Negative) RSV (PCR) (Negative) 08/30/24 Range/Units 06:25 WBC (4.4-10.8) 10^3/uL RBC (3.93-5.22) 10^6/uL Hgb (11.2-15.7) g/dL Hct (36.0-46.0) % MCV (80-95) fL MCH (27.0-33.0) pg MCHC (32.0-36.0) % RDW (11.7-14.6) % Plt Count (130-400) 10^3/uL MPV (8.0-11.0) fL Immature Gran % % Neutrophils % % Lymphocytes % % Monocytes % % Eosinophils % % Basophils % % Nucleated RBC % (0.0-0.3) % Absolute Neutrophils (1.2-6.7) 10^3/uL Absolute Lymphocytes (1.2-3.4) 10^3/uL Absolute Monocytes (0.1-0.8) 10^3/uL Absolute Eosinophils (0.0-0.7) 10^3/uL Absolute Basophils (0.0-0.2) 10^3/uL RBC Morphology Hypochromasia PT (9.1-11.1) sec INR (0.9-1.1) APTT (20.6-30.2) sec VBG pH (7.31-7.41) VBG pCO2 (41-51) mmHg VBG pO2 mmHg VBG HCO3 (23-28) mmol/L VBG Total CO2 (24-29) mmol/L VBG O2 Saturation % VBG Base Excess (-2-3) mmol/L VBG Lactate (<or=2.0) mmol/L Sodium (136-145) mmol/L Potassium (3.5-5.1) mmol/L Chloride (98-107) mmol/L Carbon Dioxide (21.0-32.0) mmol/L Anion Gap (3-11) mmol/L BUN (7-18) mg/dL Creatinine (0.55-1.02) mg/dL Est GFR (CKD-EPI 2020) (mL/min/1.73m2) Glucose (74-106) mg/dL Calcium (8.5-10.1) mg/dL Total Bilirubin (0.2-1.0) mg/dL AST (15-37) U/L ALT (14-59) U/L Alkaline Phosphatase (46-116) U/L Troponin I (<or=51) ng/L NT-Pro-B Natriuret Pep (<300) pg/mL Total Protein (6.4-8.2) g/dL Albumin (3.4-5.0) g/dL Procalcitonin ng/mL Cortisol COVID-19 Source Nasopharynx SARS-CoV-2 (PCR) Negative (Negative) Influenza Type A (PCR) Negative (Negative) Influenza Type B (PCR) Negative (Negative) RSV (PCR) Negative (Negative) 08/30/24 06:40 Blood Culture - Pending Blood 08/30/24 06:35 Blood Culture - Pending Blood Intake and Output - 24 Hour Total 08/30/24 06:07 thru 08/30/24 08:46 Intake Total 1150 Balance 1150 Weight 99.79 kg Intake: IV 1150 Falls Risk Assessment History of Falls No History 08/30/24 06:25 Contributing Factors No Factors 08/30/24 06:25 Ambulatory Aids Independent 08/30/24 06:25 Tubes/Lines None 08/30/24 06:25 Gait Evaluation No gait disturbance 08/30/24 06:25 Cognition No cognitive impairment 08/30/24 06:25 Fall Total Score 0 08/30/24 06:25 Level of Risk Standard/Low Risk 08/30/24 06:25 Problems (Last Reviewed 08/30/24 @ 09:29 by [place] David) Severe sepsis (Acute) Acute kidney injury (Acute) Acute hypoxemic respiratory failure (Acute) Pneumonia (Acute) History of DVT (deep vein thrombosis) (Acute) Atrial fibrillation (Chronic 11/29/19) Obstructive sleep apnea, adult (Acute 05/19/90) Chronic lymphocytic leukemia (Acute) v v v v v v v v v Sending and/or Receiving Nurses: Please use comment section below to note any information pertinent to the patient hand-off not included above. Information / Comments: Report received from: TAMI RN @[id number]
[2024-08-30 10:16] LABS: Troponin I 15 ng/L (<or=51)
--- NOTE | 2024-08-30 10:46 | PHA.REVIEW2 ---
Pharmacy Admission Review Admission Clinical Review Admission Pharmacy Review: Severe sepsis (Acute) Acute kidney injury (Acute) Acute hypoxemic respiratory failure (Acute) Pneumonia (Acute) History of DVT (deep vein thrombosis) (Acute) Obstructive sleep apnea, adult (Acute 05/19/90) Chronic lymphocytic leukemia (Acute) latex Allergy (Unknown, Verified 08/30/24 06:21) SKIN RASH Penicillins Allergy (Unknown, Verified 08/30/24 06:21) per skin tests by buff wheel fabricator, never had a reaction to Sulfa (Sulfonamide Antibiotics) Allergy (Unknown, Verified 08/30/24 06:21) Rash gluten Adverse Reaction (Mild, Verified 08/30/24 06:21) INTOLERENCE codeine Adverse Reaction (Verified 08/30/24 06:21) Other (See Comment) adhesive tape Allergy (Uncoded 08/30/24 06:21) rash Hydrocodone-Acetaminophen Adverse Reaction (Uncoded 08/30/24 06:21) Other (See Comment) Resuscitation Status Full Code Height 5 ft 9 in Weight 99.79 kg Pharmacy Admission Review Renal Dosing Renal Dosing: BUN 22 mg/dL (7-18) H 08/30/24 06:35 Creatinine 1.5 mg/dL (0.55-1.02) H 08/30/24 06:35 Medications needing adjustments: Intervened (CrCl 40.74 mL/min) List of meds needing interventions: Changed levofloxacin from 750mg q24h to 750mg q48h due to CrCl < 50 Anticoagulation Anticoagulation: Hgb 11.5 g/dL (11.2-15.7) 08/30/24 06:35 Hct 43.0 % (36.0-46.0) 08/30/24 06:35 Plt Count 177 10^3/uL (130-400) 08/30/24 06:35 INR 1.6 (0.9-1.1) H 08/30/24 06:35 Creatinine 1.5 mg/dL (0.55-1.02) H 08/30/24 06:35 DVT Prophylaxis: Reviewed Medications: Rivaroxaban (20mg daily - set time for 1700 per pharmacy protococ) Relevant Labs Relevant Labs: Sodium 142 mmol/L (136-145) 08/30/24 06:35 Potassium 4.8 mmol/L (3.5-5.1) 08/30/24 06:35 Chloride 105 mmol/L (98-107) 08/30/24 06:35 Electrolytes, C-Reactive P, ESR: Reviewed Cardiac Review Cardiac Review: Troponin I 15 ng/L (<or=51) 08/30/24 09:40 NT-Pro-B Natriuret Pep 4468 pg/mL (<300) H 08/30/24 06:35 Blood Pressure 95/43 0921 Blood Pressure 101/77 0902 Blood Pressure 95/43 0841 Blood Pressure 79/37 0821 Blood Pressure 93/39 0801 Blood Pressure 90/38 0741 Blood Pressure 76/46 0720 Blood Pressure 92/40 0705 Blood Pressure 104/45 0616 Blood Pressure 104/45 0612 BP, HR, EF%: Intervened (HR WNL) List meds needing interventions: Has order for metoprolol XL 25mg daily. Spoke to provider as H+P said to hold metoprolol but an order was put in to start tomorrow morning. Provider was okay with keeping the order active and added hold parameters to order. QTc Review QTc: Reviewed (EKG report pending) IV to PO Switch IV Medications: Reviewed (hydrocortisone and levofloxacin) Home Meds Home Med List reviewed: Intervened Relevent Home Meds Not ordered & why?: Epipen (PRN), losartan (on hold per H+P - low BP), naproxen (PRN) and rizatriptan (PRN) Recently filled budesonide EC tablet but not on home med list. Provider confirmed during morning meeting that patient was [place] [facility] I added to home med list. Provider holding medication for now. Changed multiple orders to patients own medication: desonide cream, alpha lipoic acid, Citrucel and zinc. Called nurse to let them know patient will need to have brought in if she wants to take/use any of these while here. Current Meds Current Medication Order Review: Reviewed Pharmacy Antibiotic Review Relevant Labs: Relevant Labs WBC 329.97 10^3/uL (4.4-10.8) H* 08/30/24 06:35 Procalcitonin 5.65 ng/mL 08/30/24 06:35 Temperature 37 C Pharmacy Antibiotic Activity: C/S review and Renal function adjustment (changed levofloxacin from q24h to q48h) Comments: Patient is on levofloxacin 750mg IV q48h, day 1, for sepsis pneumonia. Blood cultures pending.
[2024-08-30] MEDS: Lactated Ringers 500 ML 1000 ML IV (12:02)
[2024-08-30] MEDS: Normal Saline Flush 10 ML SYR ×2 (12:26→20:19)
[2024-08-30 12:47] LABS: Bilirubin Negative (Negative); Blood Large (Negative); Clarity Sl Cloudy (Clear); Glucose 100 mg/dL (Negative); Ketones Negative (Negative); Leukocyte Esterase Negative (Negative); Nitrite Negative (Negative); Specific Gravity >= 1.030 (1.005-1.025); Urobilinogen 0.2 mg/dL (Up to 0.2); pH 5.5 (5-8)
[2024-08-30 13:00] LABS: Bacteria Negative HPF (Negative); C & S Indicated? No; Casts 20-50 Hyaline LPF (Negative); Crystals Negative HPF (Negative); Epithelial Cells Few HPF (Negative); Mucus Trace (Negative); RBC 20-50 HPF (0-2); WBC 0-2 HPF (0-5)
[2024-08-30] MEDS: Hydrocortisone SOD SUC. 100 MG VIAL 50 MG IVP ×2 (14:31→20:18)
[2024-08-30] MEDS: Rivaroxaban 10 MG TABLET 20 MG PO (18:58)
[2024-08-30] MEDS: Fluticasone NASAL SPRAY 16 GM BTL NS (20:17)
[2024-08-30] MEDS: Melatonin 3 MG TAB 9 MG PO (20:18)
[2024-08-30] MEDS: Gabapentin 300 MG CAP 600 MG PO (20:18)
[2024-08-31] VITALS (24 sets, daily range): BP systolic 96–140; BP diastolic 57–84; PULSE 53–82; RESP 5–21; TEMP 36.5–37.1; O2SAT 88–95
[2024-08-31] MEDS: Lidocaine 4% Cream 5 GM TUBE TP ×4 (03:46→21:00)
[2024-08-31] MEDS: oxyCODONE 5 MG TAB PO (03:59)
[2024-08-31] MEDS: Albuterol/Ipratropium 3 ML UPD VIAL UPD (04:45)
[2024-08-31] MEDS: Hydrocortisone SOD SUC. 100 MG VIAL 50 MG IVP (05:32)
[2024-08-31] MEDS: Levothyroxine 50 MCG TAB PO (05:32)
[2024-08-31 05:58] LABS: Abs Immature Grans 0.99 10^3/uL (0.0-0.06); HCT 38.5 % (36.0-46.0); HGB 10.6 g/dL (11.2-15.7); Immature Grans % 0.4 %; Lymphocytes % 94.7 %; MCH 26.4 pg (27.0-33.0); MCHC 27.5 % (32.0-36.0); MCV 96 fL (80-95); MPV 11.5 fL (8.0-11.0); Monocytes % 1.1 %; Neutrophils % 3.8 %; Platelet Count 142 10^3/uL (130-400); RBC 4.02 10^6/uL (3.93-5.22); RDW 16.9 % (11.7-14.6); RDW-SD 51.1 fL
[2024-08-31 06:01] LABS: Absolute Lymphocyte Count 261.24 10^3/uL (1.2-3.4); Absolute Monocyte Count 3.03 10^3/uL (0.1-0.8); Absolute Neutrophil Count 10.48 10^3/uL (1.2-6.7); WBC 275.86 10^3/uL (4.4-10.8)
[2024-08-31 06:17] LABS: Diff Comment Agrees w/ Instrument; Hypochromasia 1+
[2024-08-31 06:22] LABS: Anion Gap 8.6 mmol/L (3-11); BUN 26 mg/dL (7-18); CO2 27.4 mmol/L (21.0-32.0); CREATININE 0.9 mg/dL (0.55-1.02); Calcium 9.5 mg/dL (8.5-10.1); Chloride 107 mmol/L (98-107); Estimated GFR 66.67 (mL/min/1.73m2); Glucose 165 mg/dL (74-106); Potassium 4.3 mmol/L (3.5-5.1); Sodium 143 mmol/L (136-145); TSH 0.52 uIU/mL (0.36-3.74)
--- NOTE | 2024-08-31 08:11 | RESPIRATORY ---
Pt's own ResMed Auto-CPAP Min: 8 Max: 16 No O2 bleed in at baseline. DME: [facility] [employer]. Nasal Mask: Medium. Nursing/RT may bleed in O2 as needed at night during pt's admission to maintain adequate SpO2.
[2024-08-31] MEDS: Ezetimibe 10 MG TAB PO (08:19)
[2024-08-31] MEDS: Multivitamin TAB 1 TAB PO (08:19)
[2024-08-31] MEDS: Cyanocobalamin 100 MCG TABLET PO (08:19)
[2024-08-31] MEDS: Metoprolol CR 25 MG TABCR PO (08:19)
[2024-08-31] MEDS: Fluticasone NASAL SPRAY 16 GM BTL NS ×2 (08:19→20:58)
[2024-08-31] MEDS: Cetirizine 10 MG TAB PO (08:19)
[2024-08-31] MEDS: Gabapentin 300 MG CAP PO (08:20)
[2024-08-31] MEDS: Cholecalciferol (Vitamin D3) 1,000 UNIT TAB 1000 UNITS PO (08:20)
--- NOTE | 2024-08-31 08:34 | INITIAL_ITS ---
Date of service: 08/31/24 Time of Service: 08:35 Care Management Initial Assmt Initial Assessment Reason for Hospitalization: Pneumonia, severe sepsis, FUNMILAYO, Lymphocytosis Functional Status/Living Situation Patient Presentation: Saundra was sitting in a recliner when CM met with her; she is polite and easily engages in conversation. Saundra lives alone in [facility]; she is independent at baseline despite having CLL. Her Daughter (Suri) lives in [place] (just over an hour away) and is very supportive. If Suri is unable to pick her up when she;s ready to discharge she has a few friends that live locally that might be available to help, otherwise she will use [facility]. Town of Residence: [place] Resides with: Alone Natural Supports: Daughter Suri, local friends Employment Status: Retired ( She is retired from the [employer] program..) Instrumental Activities of Daily Living (ADLs): Independent Medications Medication Management: No Issues/Barriers identified Physical Functioning/Mobility Assistive Device: Walker Advance Directives Advance Directives: Do you have an Advance Directive: Y 07/06/24 08:46 AD On File at [facility]: Y 07/06/24 08:46 Date Asked AD Date Reviewed 08/30/24 08/30/24 06:28 COLST On File at [facility] COLST Date Scanned Code Status Resuscitation Status Full Code Insurance Coverage/Financial Issues Insurance: BC/BS [facility] - [id number] Care Team Visit Care Team Role Provider Type Ingrid Espinosa NP Primary Care Provider NURSE PRACTITIONER Regan Chino DO Emergency Provider [facility] STAFF PHYSICIAN [place] David Admit Provider [facility] STAFF PHYSICIAN Attending Provider Discharge Potential Discharge Needs: PCP F/U Appt Anticipated Barriers to Discharge: None Identified Patient/Family Education Needs: Review discharge instructions, discuss Ask Me Three Transportation: Private vehicle Plan: Anticipate, Saundra will discharge home via private vehicle vs. [facility] when medically ready for discharge. Will follow up with community providers and discharge plan of care as directed. CM will follow. Social Determinants of Health Screening Social Determinants of health last assessed in clinic: 08/31/24 Will the Patient Participate in the Screening?: Yes Do you worry about having a steady place to live?: no Problems where you live: no known problems In the past 12 months, have you had to go without electric, gas, oil or water in your home?: no 1. Within the past 12 months, we worried whether our food would run out before we got money to buy more.: Never true 2. Within the past 12 months, the food we bought just didn't last and we didn't have money to get more.: Never true Has lack of transportation kept you from medical appointments or from doing things needed for daily living?: no Has anyone in your life made you feel unsafe or unsupported?: no How hard is it for you to pay for the very basics like food, housing, medical care, and heating? Would you say it is:: Not hard at all Do you want help finding or keeping work or a job?: I do not need or want help If for any reason you need help with day-to-day activities such as bathing, preparing meals, shopping, managing finances, etc., do you get the help you need?: I don?t need any help How often do you feel lonely or isolated from those around you?: Sometimes Do you speak a language other than Czech at home?: No Does the patient want assistance with any of the above?: No Health Related Social Needs Health related social needs: feeling lonely/isolated (Z60.8) Health related social needs details: Pt answered sometimes PFSH All Active Problems Severe sepsis (Acute) Acute kidney injury (Acute) Sepsis (Acute) Leukocytosis (Acute) Acute hypoxemic respiratory failure (Acute) Pneumonia (Acute) Squamous cell carcinoma of skin of left cheek (Acute ~08/2024) 08/24/24 Dr Saucedo, [facility] proc Acquired right foot drop (Acute) Venous insufficiency (Acute) Atherosclerosis of artery of both lower extremities (Acute) Peripheral neuropathy (Acute) Callus (Acute) Varicose vein of leg (Acute) Erythema migrans (Lyme disease) (Acute ~09/2022) Cerebral infarction, unspecified (Acute ~08/2022) 08/05/22 CT Scan showed old R frontal opercular infarction. Acquired pes planovalgus of right foot (Acute ~06/2022) [place], [facility] [place] Eyelid lesion (Acute ~06/2022) 06/25/22 Ophth Bilateral pseudophakia (Acute ~06/2022) 06/25/22 Ophth 08/02/24 f/u visit Pre-diabetes (Acute) Chondrocalcinosis of right knee (Acute) depo medrol 06/06/22 Degenerative joint disease of right knee (Chronic) Most recent Depo-Medrol injection: 06/27/2023 Hypogammaglobulinemia (Acute) 04/24/22 Hem/Onc Radiculopathy, lumbar region (Acute) 03/18/22 Dr Mayer Anticoagulation adequate (Acute) Nail dystrophy (Acute) Plantar fasciitis (Acute) per xr Pre-diabetes (Acute) Post-menopause (Acute) Bilateral nephrolithiasis (Acute 03/05/21) non-obstructing 03/24/23 Cystoscopy at Wound of right ankle (Acute) Mobility impaired (Acute) Subcutaneous nodule (Acute) Fibromyalgia (Acute) Family history of breast cancer (Acute) History of DVT (deep vein thrombosis) (Acute) Pain due to varicose veins of lower extremity (Acute) Fecal incontinence (Acute 05/26/20) IBS (irritable bowel syndrome) (Chronic 05/26/20) Impaired fasting glucose (Acute 07/09/11) Angiomyolipoma of both kidneys (Acute) cystoscopy 03/2013, 02/22/[place] [place]. [place] Du MD. 02/2020 normal cystoscopy followed [place] Dr. Du [facility] [place]. 04/14/24 Urology visit Left breast lump (Acute) Atrial fibrillation (Chronic 11/29/19) Obesity (Chronic) Depressive disorder (Chronic 03/18/97) Primary osteoarthritis of both hips (Acute) APD Ortho Right hip pain (Acute) Postnasal drip (Acute 07/05/13) Allergic rhinitis (Acute 07/05/13) Brachial plexus disorders (Acute 07/09/11) Migraine (Acute 02/15/98) Chronic headache (Chronic) Dr. Mayer Lumbar radiculopathy, chronic (Chronic) Donovan Mayer mD Weakness of foot (Acute) weak leg & R foot drop due to LS disc problems Seasonal allergic rhinitis (Acute 10/29/12) RESPONSIVE TO LORATADINE/FLONASE Osteoarthritis, hip, bilateral (Acute 06/07/14) ortho: [place] Salcido, [facility] [place] Obstructive sleep apnea, adult (Acute 05/19/90) CPAP initially sleep lab [facility] 04/2020 Amy Crocker Morbid obesity (Acute 07/09/11) goal: 230 (10% less than 11/2014 wt) Hypothyroidism (Acute 05/04/12) Hyperlipidemia (Acute 06/19/02) Simvastatin begun 10/2006 failed on lifestyle alone, goal LDL <130 then Hypercoagulable state, primary (Acute) h/o w/u [facility] 12/2011; rec wt loss and aggressive prophylaxis for immobilization H/O malignant carcinoid tumor of stomach (Acute 02/16/07) GASTRIC CARCINOID, [facility], [facility] [place], [place]GD 06/01/09; RPT Q 2 YR EGD 08/19/17 Dr Quinn >20 hyperplastic gastric polyps Gastroesophageal reflux disease (Acute 07/09/11) Flat feet, bilateral (Acute 12/31/16) brace right leg, insert left foot Chronic pain (Acute 10/19/01) rarely opioid; uses cymbalta for chronic foot, back, sometimes head pain; after disc rupture 10/2001 [facility] [place] [place] Chronic lymphocytic leukemia (Acute) [facility] [place] consult note 10/09/17 [facility] [place]c f/u note 02/22/21 Benign hypertension (Acute 06/19/02) Signed copy of advance directive in patient notes (Acute 07/09/11) Medical History Astigmatism of both eyes with presbyopia (~07/2024) 08/02/24 Ophth Lesion of upper eyelid (~07/2024) 08/02/24 Ophth - MELISSA - being monitored Lesion of skin of cheek (~07/2024) 07/26/24 seen by Derm, shave bx done Lentigines 07/08/22 Derm Multiple nevi 07/08/22 Derm Seborrheic keratoses 07/08/22 Derm Actinic keratoses 07/08/22 Derm and had cryotherapy tp L Cheek Closed displaced comminuted fracture of shaft of right fibula 11/02/20-[facility].scheduled for OR on 11/06/20. Farnaz Acuña APRN Tick bite Abnormality of nail tissue Insect sting Insect sting allergy, current reaction Right thigh pain Undiagnosed cardiac murmurs (05/05/02) Allergic fungal sinusitis (10/04/13) Postmenopausal bleeding (06/11/11) Primary stomach malignant carcinoid tumor resection 2007 GERD (gastroesophageal reflux disease) Angiomyolipoma of kidney 12/13/19 F/[place] [facility] [place] Chronic diarrhea Chronic pain syndrome Obesity (BMI 30-39.9) Systolic murmur Hyperlipidemia Headache DVT (deep venous thrombosis) Weakness of foot Sleep apnea Thoracic outlet syndrome Depression with anxiety Surgical History Status post ORIF of fracture of ankle (11/06/20) fixation left ankle, [facility] endoscopic 2007 disc surgery 2006 section 1987 EGD - MAC (08/19/17) 2012-walko 2009 2006 EGD - MAC (07/22/16) 2012-walko 2009 2006 Dilation and curettage 2004 Sacha Briones 2005- Dr. Clement Colonoscopy - MAC (07/22/16) Cholecystectomy Laparoscopic-2006 Extraction of cataract Bilateral-2007 Family History Mother , sepsis at age 84. Diabetes Essential hypertension Fibromyalgia Heart disease Hyperlipidemia Sepsis Father , copd at age 79. Essential hypertension COPD (chronic obstructive pulmonary disease) Heart disease Hyperlipidemia Sister Breast cancer post-menopausal Brother , suicide at age 31. Mental disorder Paternal Aunt Breast cancer post-menopausal Other Alcohol abuse Lyme disease Prostate cancer Social History (Updated 08/30/24 @ 09:30 by [place] David) Smoking/Tobacco Use Status: Never Second Hand Exposure: No Smoking risk assessment performed?: Yes Alcohol Intake: current Alcohol Intake frequency: a few times a month Drug use: Never Substance use type: does not use Adopted: No Caregiver/Support person: No Foster care: No Household members: none Housing: house Number of Children: 1 number of grandchildren: 0 Communication Needs: Corrective Lenses Education Level: master's degree Do you need help understanding health information?: Never current occupation: Retired Pets and animals: Yes Pets and animals: cat(s) and dog(s) Sexually active: No Do you think of yourself as: straight/heterosexual Current gender identity: female What is your relationship status?: How often do you talk on the phone with friends or family?: three or more times per week How often do you get together with friends or relatives?: twice per week Do you belong to any clubs or organized social groups?: yes Panel score (0-1 are the most socially isolated patients): 2 What type of physical activity do you participate in: walking Duration: 45-60 minutes/day Frequency: daily Dolores/Latter-Day: Christian Special dolores needs: No Agree to transfusion: Yes Seatbelt use: always Helmet use: Yes Helmet use: other Details: Not needed Drive intox or ride w/intox charter and tour bus driver: No Working smoke detector in home: Yes Fire extinguisher in home: Yes Carbon monox detector in home: Yes Do you feel safe at home: Yes Additional Social history: [place] [facility]. Daughter in [facility]. Dog at home, no birds
[2024-08-31] MEDS: levoFLOXacin 750 MG/150 ML BAG 100 MG IVPB (08:42)
--- NOTE | 2024-08-31 10:01 | W.PM.PROGNOT ---
Date of Service Date of service: 08/31/24 Time of Service: 10:01 Assessment and Plan Assessment and plan (1) Severe sepsis: Status: Acute Assessment and plan: Met criteria on admission with elevated RR, WBC, and FUNMILAYO in setting of pnuemonia. Now improved, can transfer to floor. Blood cultures pending. On chronic oral budesonide, which doesn't typically but can suppress adrenal function, sent cortisol and covering with hydrocortisone for now. (2) Pneumonia: Status: Acute Assessment and plan: PCN allergy, started on levofloxacin, will continue this. As above. CXR not the most clear, some dark marvel sputum, consider CT if not improving, but I think we can defer this for now. (3) Acute hypoxemic respiratory failure: Status: Acute Assessment and plan: New hypoxia a/w pneumonia. Now resolved and on room air. No h/o smoking or asthma/COPD but she is wheezing and responded to duoneb, continue this We can start some chest PT (4) Chronic lymphocytic leukemia: Status: Acute Assessment and plan: WBC dramatic, but no immediate risk given lymphocytosis per Heme/Onc. Her WBC represented a doubling of previous level a/w her acute illness. Heme/onc at [facility] was consulted in the ED and will see the patient on f/u trend down this morning as expected. (5) Hypertension: Status: None Assessment and plan: BP were soft, holding losartan. resumed metoprolol. Resume losartan as BP contnue to trend up and FUNMILAYO recovers (6) Acute kidney injury: Status: Acute Assessment and plan: Cr 1.5 up from 0.7 with sepsis/pneumonia. Likely pre-renal, improved down to 0.9. Hold ARB again today, hydrate orally, follow. (7) History of DVT (deep vein thrombosis): Status: Acute Assessment and plan: Recurrent, no specific condition noted on hypercoagulability work up. On chronic rivaroxaban, continue (8) Atrial fibrillation: Status: Chronic Assessment and plan: On metoprolol low dose and rivaroxaban, continue both (9) Chronic diarrhea: Assessment and plan: Lymphocytic colitis. On oral budesonide per GI, holding for now, avoid NSAIDs. (10) Obstructive sleep apnea, adult: Status: Acute Assessment and plan: home CPAP. Having issues with insomnia, can use low dose zolpidem while inpatient. Subjective Subjective Patient reports: feels better, tolerating a regular diet and voiding w/o difficulty; denies diarrhea, nausea, vomiting or fever Interval history since last seen: Had some pain with cough overnight, responded to oxycodone 5mg She didn't get much sleep last nigh, has trouble sleeping chronically. She did use her home CPAP. She feels better overall. Breathing has improved. off oxygen this morning. Exam Narrative Exam Narrative: GEN: Alert and oriented, no acute distress at rest. LUNGS: Diffuse coarse breath sounds and slight expiratory wheeze, mild rales left base. no longer tachypeic CV: RRR with 2/6 systolic murmur, no gallops, or rubs. EXT: no cyanosis, clubbing. Trace erica ankle edema Objective Last Vital Signs Temp 36.5 C 08/30/24 23:50 Pulse 70 08/31/24 06:01 Resp 17 08/31/24 06:01 BP 96/63 L 08/31/24 06:01 Pulse Ox 94 08/31/24 08:11 Laboratory Results - last 24 hr 08/30/24 08/30/24 08/30/24 06:35 09:40 12:18 WBC RBC Hgb Hct MCV MCH MCHC RDW Plt Count MPV Immature Gran % Neutrophils % Lymphocytes % Monocytes % Eosinophils % Basophils % Nucleated RBC % Absolute Neutrophils Absolute Lymphocytes Absolute Monocytes Absolute Eosinophils Absolute Basophils RBC Morphology Hypochromasia Sodium Potassium Chloride Carbon Dioxide Anion Gap BUN Creatinine Est GFR (CKD-EPI 2020) Glucose Calcium Troponin I 15 TSH Cortisol 38.3 Urine Color Dark Yellow Urine Clarity Sl Cloudy Urine pH 5.5 Ur Specific [place] >= 1.030 H Urine Protein 100 H Urine Ketones Negative Urine Blood Large H Urine Nitrite Negative Urine Bilirubin Negative Urine Urobilinogen 0.2 Ur Leukocyte Esterase Negative Urine RBC 20-50 H Urine WBC 0-2 Ur Epithelial Cells Few Urine Crystals Negative Urine Bacteria Negative Urine Casts 20-50 Hyaline Urine Mucus Trace Ur Culture Indicated? No Urine Glucose 100 H 08/31/24 05:20 WBC 275.86 H* RBC 4.02 Hgb 10.6 L Hct 38.5 MCV 96 H MCH 26.4 L MCHC 27.5 L RDW 16.9 H Plt Count 142 MPV 11.5 H Immature Gran % 0.4 Neutrophils % 3.8 Lymphocytes % 94.7 Monocytes % 1.1 Eosinophils % 0.0 Basophils % 0.0 Nucleated RBC % 0.0 Absolute Neutrophils 10.48 H Absolute Lymphocytes 261.24 H Absolute Monocytes 3.03 H Absolute Eosinophils 0.00 Absolute Basophils 0.00 RBC Morphology See Below Hypochromasia 1+ Sodium 143 Potassium 4.3 Chloride 107 Carbon Dioxide 27.4 Anion Gap 8.6 BUN 26 H Creatinine 0.9 Est GFR (CKD-EPI 2020) 66.67 Glucose 165 H Calcium 9.5 Troponin I TSH 0.52 Cortisol Urine Color Urine Clarity Urine pH Ur Specific [place] Urine Protein Urine Ketones Urine Blood Urine Nitrite Urine Bilirubin Urine Urobilinogen Ur Leukocyte Esterase Urine RBC Urine WBC Ur Epithelial Cells Urine Crystals Urine Bacteria Urine Casts Urine Mucus Ur Culture Indicated? Urine Glucose PAWSS Have you Been Recently Intoxicated or Drunk Within the Last 30 days?: No Have you Ever Experienced Previous Episodes of Alcohol Withdrawal?: No Have you ever Experienced Withdrawal Seizures?: No Have you ever Experienced Delirium Tremens(DT)s?: No Have you ever undergone Alcohol Rehabilitation Treatment (i.e, inpt ot outpatient treatment programs)?: No Have you ever Experienced Blackouts?: No Have you ever Combined Alcohol with other Downers within the last 90 days?: No Have you ever Combined Alcohol with any other Substance of Abuse during the last 90 days?: No Positive Blood Alcohol level on Presentation? [PCS.BAL]: No Evidence of Increased Autonomic Activity (i.e. HR>120, tremor, sweating, agitation, nausea)?: No Result: 0 Time Spent with Patient Time Spent with Patient: >50 minutes Time was spent: preparing to see the patient(eg.review tests), obtaining and/or reviewing separately otained hiistory, ordering medications,tests, procedures, referring, communicating with other health patient care coordinator, indepentently interpreting results, counseling the patient and care coordination
[2024-08-31] MEDS: predniSONE 20 MG TAB 40 MG PO (11:03)
--- NOTE | 2024-08-31 11:18 | W.PC.ACHO ---
Registration Status: Primary Language: Preferred Language: ED Information & Data Chief Complaint GenMedical 08/30/24 06:31 Triage Note not feeling well for a 08/30/24 06:12 couple days, fell this morning, getting out of bed lost her footing, no LOC, no new physical complaints, want s to be seen this morning for general illness and productive cough Medical / Surgical History (Last Reviewed 08/30/24 @ 09:29 by Coleman David) Astigmatism of both eyes with presbyopia (~07/2024) Lesion of upper eyelid (~07/2024) Lesion of skin of cheek (~07/2024) Lentigines Multiple nevi Seborrheic keratoses Actinic keratoses Closed displaced comminuted fracture of shaft of right fibula Tick bite Abnormality of nail tissue Insect sting Insect sting allergy, current reaction Right thigh pain Undiagnosed cardiac murmurs (05/05/02) Allergic fungal sinusitis (10/04/13) Postmenopausal bleeding (06/11/11) Primary stomach malignant carcinoid tumor GERD (gastroesophageal reflux disease) Angiomyolipoma of kidney Chronic diarrhea Chronic pain syndrome Obesity (BMI 30-39.9) Systolic murmur Hyperlipidemia Headache DVT (deep venous thrombosis) Weakness of foot Sleep apnea Thoracic outlet syndrome Depression with anxiety (Last Reviewed 08/30/24 @ 09:29 by Coleman David) Status post ORIF of fracture of ankle (11/06/20) endoscopic US disc surgery section EGD - MAC (08/19/17) EGD - MAC (07/22/16) Dilation and curettage Correction, [place] Colonoscopy - MAC (07/22/16) Cholecystectomy Extraction of cataract Most Recent Vital Signs Temperature 36.7 C 08/31/24 10:10 Temperature Source Temporal Artery Scan 08/31/24 08:26 Pulse 82 08/31/24 10:10 Pulse Rhythm Irregular 08/31/24 10:10 Pulse 75 08/31/24 09:00 Respiratory Rate 18 08/31/24 10:10 Respiratory Effort Normal, Non-Labored 08/31/24 10:10 Respiratory Depth Normal 08/31/24 10:10 Respiratory Pattern Normal 08/31/24 10:10 Blood Pressure 107/57 L 08/31/24 10:10 Blood Pressure Mean 97 08/31/24 08:26 Blood Pressure Position Sitting 08/30/24 06:12 Pulse Oximetry 93 08/31/24 10:10 Oxygen Delivery Method Room Air 08/31/24 10:10 Oxygen Flow Rate 0 08/31/24 10:10 Pain Level 0 08/31/24 10:10 Allergies latex Allergy (Unknown, Verified 08/30/24 06:21) SKIN RASH Penicillins Allergy (Unknown, Verified 08/30/24 06:21) 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 tests 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, never had a reaction to Sulfa (Sulfonamide Antibiotics) Allergy (Unknown, Verified 08/30/24 06:21) Rash gluten Adverse Reaction (Mild, Verified 08/30/24 06:21) INTOLERENCE codeine Adverse Reaction (Verified 08/30/24 06:21) Other (See Comment) NIGHTMARES adhesive tape Allergy (Uncoded 08/30/24 06:21) rash Hydrocodone-Acetaminophen Adverse Reaction (Uncoded 08/30/24 06:21) Other (See Comment) pt unsure of reaction Precautions Isolation Standard precaution 08/30/24 06:19 Active Medications Generic Name Dose Route Start Last Admin Trade Name Freq PRN Reason Stop Dose Admin Albuterol/Ipratropium 3 ml 08/30/24 09:22 08/31/24 04:45 Albuterol/Ipratropium 3 Ml Upd Vial UPD 3 ml Q6H PRN PRN Administration Cetirizine HCl 10 mg 08/31/24 08:30 08/31/24 08:19 Cetirizine 10 Mg Tab PO 10 mg DAILY HOLLIE Administration Cholecalciferol 1,000 units 08/31/24 08:30 08/31/24 08:20 Cholecalciferol (Vitamin D3) 1,000 Unit Tab PO 1,000 units DAILY HOLLIE Administration Cyanocobalamin 100 mcg 08/31/24 08:30 08/31/24 08:19 Cyanocobalamin 100 Mcg Tablet PO 100 mcg DAILY HOLLIE Administration Ezetimibe 10 mg 08/31/24 08:30 08/31/24 08:19 Ezetimibe 10 Mg Tab PO 10 mg DAILY HOLLIE Administration Fluticasone Propionate 0 gm 08/30/24 20:00 08/31/24 08:19 Fluticasone Nasal [place] 16 Gm Btl NS 2 spray BID HOLLIE Administration Gabapentin 300 mg 08/31/24 08:30 08/31/24 08:20 Gabapentin 300 Mg Cap PO 300 mg QAM HOLLIE Administration Gabapentin 600 mg 08/30/24 20:00 08/30/24 20:18 Gabapentin 300 Mg Cap PO 600 mg QPM HOLLIE Administration Levofloxacin 750 mg in 150 mls @ 100 mls/hr 08/31/24 08:00 08/31/24 11:04 Levaquin Premixed Bag IVPB Infused Q24H HOLLIE Infusion Levothyroxine Sodium 50 mcg 08/31/24 06:00 08/31/24 05:32 Levothyroxine 50 Mcg Tab PO 50 mcg DAILY@0600 HOLLIE Administration Lidocaine 0 gm 08/30/24 08:35 08/31/24 08:20 Lidocaine 4% Cream 5 Gm Tube TP 1 gm BID PRN PRN Administration Melatonin 9 mg 08/30/24 20:00 08/30/24 20:18 Melatonin 3 Mg Tab PO 9 mg HS PRN PRN Administration Metoprolol Succinate 25 mg 08/31/24 08:30 08/31/24 08:19 Metoprolol Cr 25 Mg Tabcr PO 25 mg DAILY HOLLIE Administration Multivitamins 1 tab 08/31/24 08:30 08/31/24 08:19 Multivitamin Tab PO 1 tab DAILY HOLLIE Administration Mupirocin 0 gm 08/30/24 20:00 08/31/24 08:22 Mupirocin 2% Oint. 22 Gm Tube TP Not Given BID HOLLIE Oxycodone HCl 5 mg 08/31/24 03:44 08/31/24 03:59 Oxycodone 5 Mg Tab PO 5 mg Q6H PRN PRN Administration Pt's Own Alpha 1 each 08/31/24 08:30 08/31/24 08:21 Lipoic Acid 600 Mg PO Not Given Capsule DAILY HOLLIE Pt's Own 2 each 08/31/24 08:30 08/31/24 08:19 Methylcellulose ( PO 2 each Laxative) [Citrucel] DAILY HOLLIE Administration 500 Mg Tablet Pt's Own Zinc 250 Mg 1 each 08/31/24 08:30 08/31/24 08:22 Tablet PO Not Given DAILY [facility] Rivaroxaban 20 mg 08/30/24 17:00 08/30/24 18:58 Rivaroxaban 10 Mg Tablet PO 20 mg DAILY@1700 HOLLIE Administration IV IV Catheter Type [Right Saline Lock Antecubital] IV Catheter Gauge [Right 18 Antecubital] Diagnostics 08/31/24 08/30/24 08/30/24 Range/Units 05:20 12:18 06:35 WBC 275.86 H* (4.4-10.8) 10^3/uL RBC 4.02 (3.93-5.22) 10^6/uL Hgb 10.6 L (11.2-15.7) g/dL Hct 38.5 (36.0-46.0) % MCV 96 H (80-95) fL MCH 26.4 L (27.0-33.0) pg MCHC 27.5 L (32.0-36.0) % RDW 16.9 H (11.7-14.6) % Plt Count 142 (130-400) 10^3/uL MPV 11.5 H (8.0-11.0) fL Immature Gran % 0.4 % Neutrophils % 3.8 % Lymphocytes % 94.7 % Monocytes % 1.1 % Eosinophils % 0.0 % Basophils % 0.0 % Nucleated RBC % 0.0 (0.0-0.3) % Absolute Neutrophils 10.48 H (1.2-6.7) 10^3/uL Absolute Lymphocytes 261.24 H (1.2-3.4) 10^3/uL Absolute Monocytes 3.03 H (0.1-0.8) 10^3/uL Absolute Eosinophils 0.00 (0.0-0.7) 10^3/uL Absolute Basophils 0.00 (0.0-0.2) 10^3/uL RBC Morphology See Below Hypochromasia 1+ Sodium 143 (136-145) mmol/L Potassium 4.3 (3.5-5.1) mmol/L Chloride 107 (98-107) mmol/L Carbon Dioxide 27.4 (21.0-32.0) mmol/L Anion Gap 8.6 (3-11) mmol/L BUN 26 H (7-18) mg/dL Creatinine 0.9 (0.55-1.02) mg/dL Est GFR (CKD-EPI 2020) 66.67 (mL/min/1.73m2) Glucose 165 H (74-106) mg/dL Calcium 9.5 (8.5-10.1) mg/dL TSH 0.52 (0.36-3.74) uIU/mL Cortisol 38.3 (See Note) ug/dL Urine Color Dark Yellow (Yellow) Urine Clarity Sl Cloudy (Clear) Urine pH 5.5 (5-8) Ur Specific [place] >= 1.030 H (1.005-1.025) Urine Protein 100 H (Neg-Trace) mg/dL Urine Ketones Negative (Negative) mg/dL Urine Blood Large H (Negative) Urine Nitrite Negative (Negative) Urine Bilirubin Negative (Negative) Urine Urobilinogen 0.2 (Up to 0.2) mg/dL Ur Leukocyte Esterase Negative (Negative) Urine RBC 20-50 H (0-2) HPF Urine WBC 0-2 (0-5) HPF Ur Epithelial Cells Few (Negative) HPF Urine Crystals Negative (Negative) HPF Urine Bacteria Negative (Negative) HPF Urine Casts 20-50 Hyaline (Negative) LPF Urine Mucus Trace (Negative) Ur Culture Indicated? No Urine Glucose 100 H (Negative) mg/dL 08/30/24 10:49 Sputum Culture - Preliminary Sputum - Expectorated Normal Anna Gram Stain - Final 08/30/24 06:40 Blood Culture - Preliminary Blood NO GROWTH 24 HOURS 08/30/24 06:35 Blood Culture - Preliminary Blood NO GROWTH 24 HOURS [id number] Documentation Fingerstick Glucose Start: 08/30/24 20:17 Freq: Status: Active Protocol: Activity Type Activity Date Activity User E-sign Co-sign Detail Recorded Client Recorded Date Recorded By Document 08/30/24 20:13 BKG DAEMON(3) [id number] 08/30/24 20:17 BKG DAEMON(4) Intake and Output - 24 Hour Total 08/30/24 06:07 thru 08/31/24 11:04 Intake Total 2960 Output Total 1025 Balance 1935 Weight 98.9 kg Intake: IV 1800 Oral 1160 Output: Urine 1025 Other: Urine Color Yellow Urine Appearance Clear Urine Odor None Comment Has seen a urologist, has had 3 UTIs and hematuria in the last year or so. Falls Risk Assessment History of Falls Admit Due to Fall 08/31/24 10:10 Contributing Factors No Factors 08/31/24 10:10 Ambulatory Aids Uses ambulatory device 08/31/24 10:10 Tubes/Lines W/no contributing factors 08/31/24 10:10 Gait Evaluation No gait disturbance 08/31/24 10:10 Cognition No cognitive impairment 08/31/24 10:10 Fall Total Score 50 08/31/24 10:10 Level of Risk Moderate Risk 08/31/24 10:10 Problems (Last Reviewed 08/30/24 @ 09:29 by Coleman David) Severe sepsis (Acute) Acute kidney injury (Acute) Acute hypoxemic respiratory failure (Acute) Pneumonia (Acute) History of DVT (deep vein thrombosis) (Acute) Atrial fibrillation (Chronic 11/29/19) Obstructive sleep apnea, adult (Acute 05/19/90) Chronic lymphocytic leukemia (Acute) Notes 08/31/24 08:11 Respiratory by Eddy Martinez Pt's own [employer]Med Auto-CPAP Min: 8 Max: 16 No O2 bleed in at baseline. DME: [employer]. Nasal Mask: Medium. Nursing/RT may bleed in O2 as needed at night during pt's admission to maintain adequate SpO2. Initialized on 08/31/24 08:11 - END OF NOTE v v v v v v v v v Sending and/or Receiving Nurses: Please use comment section below to note any information pertinent to the patient hand-off not included above. Information / Comments: Patient transferred from ICU to med-surg. R AC IV running levofloxacin @ 100 mL/hr. Report received from: Rabia Grewal INTRAMURAL DIRECTOR
[2024-08-31] MEDS: Rivaroxaban 10 MG TABLET 20 MG PO (17:12)
[2024-08-31] MEDS: Gabapentin 300 MG CAP 600 MG PO (20:58)
[2024-08-31] MEDS: Melatonin 3 MG TAB 9 MG PO (20:58)
[2024-08-31] MEDS: Zolpidem 5 MG TAB PO (20:59)
[2024-08-31] MEDS: Normal Saline Flush 10 ML SYR IVP (21:00)
[2024-09-01 03:21] VITALS: BP 119/79; PULSE 64; RESP 15; TEMP 36.7; O2SAT 91
[2024-09-01] MEDS: Levothyroxine 50 MCG TAB PO (06:15)
[2024-09-01 07:14] VITALS: BP 119/67; PULSE 71; RESP 18; TEMP 36.8; O2SAT 92
[2024-09-01] MEDS: Ezetimibe 10 MG TAB PO (07:43)
[2024-09-01] MEDS: predniSONE 20 MG TAB 40 MG PO (07:43)
[2024-09-01] MEDS: Multivitamin TAB 1 TAB PO (07:43)
[2024-09-01] MEDS: Cetirizine 10 MG TAB PO (07:43)
[2024-09-01] MEDS: Cholecalciferol (Vitamin D3) 1,000 UNIT TAB 1000 UNITS PO (07:43)
[2024-09-01] MEDS: Cyanocobalamin 100 MCG TABLET PO (07:44)
[2024-09-01] MEDS: levoFLOXacin 750 MG/150 ML BAG 100 MG IVPB (07:44)
[2024-09-01] MEDS: Gabapentin 300 MG CAP PO (07:44)
[2024-09-01] MEDS: Metoprolol CR 25 MG TABCR PO (07:44)
[2024-09-01] MEDS: Lidocaine 4% Cream 5 GM TUBE TP (07:50)
[2024-09-01] MEDS: Fluticasone NASAL SPRAY 16 GM BTL NS (07:50)
[2024-09-01] MEDS: Normal Saline Flush 10 ML SYR IVP (07:51)
--- NOTE | 2024-09-01 08:39 | CMPROGNOTE_ITS ---
Care Management Progress Note Progress Note Text Progress Note Text: Saundra was sitting in a recliner when CM met with her. She is awake and easy to engage in conversation. Her daughter will be here around 4pm, and she is planning to discharge home then with [facility] PT. Saundra has other co-morbidities and would likely benefit from Full [facility] services. CM will follow. Discharge Potential Discharge Needs: PCP F/U Appt Anticipated Barriers to Discharge: None Identified Patient/Family Education Needs: Review discharge instructions, discuss Ask Me Three Transportation: Private vehicle Plan: Anticipate, Saundra will discharge home via private vehicle when medically ready for discharge. Will follow up with community providers and discharge plan of care as directed. [facility] PT, possibly RN/OT, services. CM will follow. Social Determinants of Health Screening Social Determinants of health last assessed in clinic: 09/01/24 Will the Patient Participate in the Screening?: Yes Do you worry about having a steady place to live?: no Problems where you live: no known problems In the past 12 months, have you had to go without electric, gas, oil or water in your home?: no 1. Within the past 12 months, we worried whether our food would run out before we got money to buy more.: Never true 2. Within the past 12 months, the food we bought just didn't last and we didn't have money to get more.: Never true Has lack of transportation kept you from medical appointments or from doing things needed for daily living?: no Has anyone in your life made you feel unsafe or unsupported?: no How hard is it for you to pay for the very basics like food, housing, medical care, and heating? Would you say it is:: Not hard at all Do you want help finding or keeping work or a job?: I do not need or want help If for any reason you need help with day-to-day activities such as bathing, preparing meals, shopping, managing finances, etc., do you get the help you need?: I don?t need any help How often do you feel lonely or isolated from those around you?: Rarely Do you speak a language other than [place] at home?: No Does the patient want assistance with any of the above?: No Comments: Pt states recently she has felt safe and supported, but does mention previous history that she did no expand on. Health Related Social Needs Health related social needs: feeling lonely/isolated (Z60.8) Health related social needs details: Pt says she feels occasionally lonely.
[2024-09-01 08:42] LABS: HCT 40.8 % (36.0-46.0); HGB 11.2 g/dL (11.2-15.7); MCH 26.4 pg (27.0-33.0); MCHC 27.5 % (32.0-36.0); MCV 96 fL (80-95); MPV 11.2 fL (8.0-11.0); Platelet Count 138 10^3/uL (130-400); RBC 4.24 10^6/uL (3.93-5.22); RDW 17.3 % (11.7-14.6); RDW-SD 51.8 fL
[2024-09-01 09:17] LABS: Absolute Neutrophil Count 14.28 10^3/uL (1.2-6.7); Atypical Lymphocytes % 0 %; Bands % 0 %
[2024-09-01 09:18] LABS: Anisocytosis 1+; Diff Comment Manual Differential; Hypochromasia 2+; Poikilocytes 2+
[2024-09-01 11:01] VITALS: BP 120/69; PULSE 72; RESP 18; TEMP 36.6; O2SAT 94
--- NOTE | 2024-09-01 11:15 | PT.INIE ---
PT Notes Visit Reasons: pneumonia,severe sepsis,FUNMILAYO,lymphocytosis
--- NOTE | 2024-09-01 11:15 | IN_ITS ---
PT Notes Visit Reasons: pneumonia,severe sepsis,FUNMILAYO,lymphocytosis
--- NOTE | 2024-09-01 12:13 | PT.INIE ---
PT Notes Visit Reasons: pneumonia,severe sepsis,FUNMILAYO,lymphocytosis Physical Therapy Inpatient Initial Evaluation Date: 09/01/2024 Referring Doctor: Dr. David PT Orders: PT CONSULT: Safety consult for discharge fall safety assessment Precautions: Standard, IV access Patient Profile/Admitting Diagnosis: Patient is a 74-year-old female admitted to the hospital with Dx of sepsis, pneumonia, CLL, weakness, acute hypoxic respiratory failure due to the pneumonia and acute kidney injury. Patient initially required 2 L supplemental oxygen via nasal cannula. No longer requiring oxygen PMHX: Severe sepsis (Acute) Acute kidney injury (Acute) Sepsis (Acute) Leukocytosis (Acute) Acute hypoxemic respiratory failure (Acute) Pneumonia (Acute) Squamous cell carcinoma of skin of left cheek (Acute ~08/2024) 08/24/24 Dr Saucedo, [facility] procAcquired right foot drop (Acute) Venous insufficiency (Acute) Atherosclerosis of artery of both lower extremities (Acute) Peripheral neuropathy (Acute) Callus (Acute) Varicose vein of leg (Acute) Erythema migrans (Lyme disease) (Acute ~09/2022) Cerebral infarction, unspecified (Acute ~08/2022) 08/05/22 CT Scan showed old R frontal opercular infarction.Acquired pes planovalgus of right foot (Acute ~06/2022) Dr Thomas[facility] (Acute ~06/2022) 06/25/22 OphthBilateral pseudophakia (Acute ~06/2022) 06/25/22 Ophth 08/02/24 f/u visitPre-diabetes (Acute) Chondrocalcinosis of right knee (Acute) depo medrol 06/06/22Degenerative joint disease of right knee (Chronic) Most recent Depo-Medrol injection: 06/27/2023Hypogammaglobulinemia (Acute) 04/24/22 Hem/OncRadiculopathy, lumbar region (Acute) 03/18/22 ThadaniAnticoagulation adequate (Acute) Nail dystrophy (Acute) Plantar fasciitis (Acute) per xrPre-diabetes (Acute) Post-menopause (Acute) Bilateral nephrolithiasis (Acute 03/05/21) non-obstructing 03/24/23 [facility]) Mobility impaired (Acute) Subcutaneous nodule (Acute) Fibromyalgia (Acute) Family history of breast cancer (Acute) History of DVT (deep vein thrombosis) (Acute) Pain due to varicose veins of lower extremity (Acute) Fecal incontinence (Acute 05/26/20) IBS (irritable bowel syndrome) (Chronic 05/26/20) Impaired fasting glucose (Acute 07/09/11) Angiomyolipoma of both kidneys (Acute) cystoscopy 03/2013, 02/22/20-[facility] urology note. Coleman Du MD. 02/2020 normal cystoscopy followed by Dr. Du [facility] urology. 04/14/24 Urology visit Left breast lump (Acute) Atrial fibrillation (Chronic 11/29/19) Obesity (Chronic) Primary osteoarthritis of both hips (Acute) APD OrthoRight hip pain (Acute) Postnasal drip (Acute 07/05/13) Allergic rhinitis (Acute 07/05/13) Brachial plexus disorders (Acute 07/09/11) Depressive disorder (Chronic 03/18/97) Migraine (Acute 02/15/98) Chronic headache (Chronic) Dr. MayerLumbar radiculopathy, chronic (Chronic) Donovan Mayer mDWeakness of foot (Acute) weak leg & R foot drop due to LS disc problems Seasonal allergic rhinitis (Acute 10/29/12) RESPONSIVE TO LORATADINE/FLONASE Osteoarthritis, hip, bilateral (Acute 06/07/14) ortho: Dr Salcido, [facility] Obstructive sleep apnea, adult (Acute 05/19/90) CPAP initially sleep lab [facility] 04/2020 Amy Crocker Morbid obesity (Acute 07/09/11) goal: 230 (10% less than 11/2014 wt) Hypothyroidism (Acute 05/04/12) Hyperlipidemia (Acute 06/19/02) Simvastatin begun 10/2006 failed on lifestyle alone, goal LDL <130 then Hypercoagulable state, primary (Acute) h/o w/u [facility] 12/2011; rec wt loss and aggressive prophylaxis for immobilization H/O malignant carcinoid tumor of stomach (Acute 02/16/07) GASTRIC CARCINOID, [facility], [facility], EGD 06/01/09; RPT Q 2 YR EGD 08/19/17 Dr Quinn >20 hyperplastic gastric polyps Gastroesophageal reflux disease (Acute 07/09/11) Flat feet, bilateral (Acute 12/31/16) brace right leg, insert left foot Chronic pain (Acute 10/19/01) rarely opioid; uses cymbalta for chronic foot, back, sometimes head pain; after disc rupture 10/2001 [facility] Chronic lymphocytic leukemia (Acute) [facility] hematology consult note 10/09/17 [facility] hem/onc f/u note 02/22/21Benign hypertension (Acute 06/19/02) Signed copy of advance directive in patient notes (Acute 07/09/11) Medical History Astigmatism of both eyes with presbyopia (~07/2024) 08/02/24 OphthLesion of upper eyelid (~07/2024) 08/02/24 Ophth - MELISSA - being monitoredLesion of skin of cheek (~07/2024) 07/26/24 seen by Derm, shave bx doneLentigines 07/08/22 DermMultiple nevi 07/08/22 DermSeborrheic keratoses 07/08/22 DermActinic keratoses 07/08/22 Derm and had cryotherapy tp L Cheek Closed displaced comminuted fracture of shaft of right fibula 11/02/20-[facility].scheduled for OR on 11/06/20. Farnaz Acuña, JOSENTick bite Abnormality of nail tissue Insect sting Insect sting allergy, current reaction Right thigh pain Undiagnosed cardiac murmurs (05/05/02) Allergic fungal sinusitis (10/04/13) Postmenopausal bleeding (06/11/11) Primary stomach malignant carcinoid tumor resection 2007GERD (gastroesophageal reflux disease) Angiomyolipoma of kidney 12/13/19 F/u [facility] UrologyChronic diarrhea Chronic pain syndrome Obesity (BMI 30-39.9) Systolic murmur Hyperlipidemia Headache DVT (deep venous thrombosis) Weakness of foot Sleep apnea Thoracic outlet syndrome Depression with anxiety Surgical History Status post ORIF of fracture of ankle (11/06/20) [facility] 2006Ces[facility] section 1987EGD - MAC (08/19/17) walko 2009 2006EGD - MAC (07/22/16) 2013-walko 2009 2007Dilation and curettage 2004Correction, Sacha 2005- Dr. Gomezolonoscopy - MAC (07/22/16) Cholecystectomy Laparoscopic-2007Extraction of cataract Bilateral-2007 Social History/Home Situation: Patient resides alone in a single-family home with 2 steps to enter with 1 rail on right. Patient independent ambulation, ADLs, meal prep, home management. Equipment Owned/DME: FWW, grab bars in bathroom, cane, walking poles, right AFO Subjective: Patient reports she is feeling a little anxious today agreeable to participate in therapy. Patient reported she needed a commode when she goes home. Objective: General Observation: Patient presented reclined in chair with music playing. Mental Status: Alert and oriented x 4, anxious, cooperative, able to follow instructions and agreeable to participate Pain: Denied ROM: [] Right Upper Extremity: WNL Left Upper Extremity: WNL Right Lower Extremity: WNL Left Lower Extremity: WNL except ankle dorsiflexion 5 degrees Strength: [] Right Upper Extremity: 5/5 grossly Left Upper Extremity: 5/5 grossly Right Lower Extremity: Hip flexion: 3+/5; hip abduction: 3/5; hip extension: 3/5; knee extension: 3+ /5; knee flexion: 3/5 ankle DF: 3/5 ; ankle PF: 3 -/5 Left Lower Extremity: Hip flexion: 3+/5; hip abduction: 3+/5; hip extension: 3/5; knee extension: 3+ /5; knee flexion:3 /5 ankle DF: 3+ /5 ; ankle PF: 3+ /5 Sensation: [] Intact Bed Mobility/Transfers: [] Supine to sit [independent Sit to stand independent Stand to sit independent Bed to chair SBA with FWW Gait: SBA with FWW 50 feet x 3 reciprocal pattern demonstrating increased step height on right for foot clearance as she fatigued. Patient has AFO however not within hospital. Stairs: 2 steps x 2 trials with right rail bilateral upper extremity on right rail step to pattern cues for sequencing SBA Balance: [] Static Sitting: Normal Dynamic Sitting: Good Static Standing: Good plus Dynamic Standing: Good Special Tests: [] Mobility Limitations Standardized Measure [] [facility] Basic Mobility Inpatient Short Form: [] Raw Score: 21 CMS Score: 28.97% Informed Consent/Education: Patient instructed in purpose of PT consult. Assessment: Patient is 74-year-old female presenting with some anxiousness. Patient demonstrates ability to compensate for right dorsiflexion musculature weakness with use of steppage gait pattern when she does not have her AFO. Patient presents with clinical signs and symptoms consistent with current/admitting diagnoses that have resulted to mobility limitations, gait instability, generalized weakness, and impairment of motor control as demonstrated by the following impairment level findings: 1. Decreased strength to right leg major muscle groups 2. Impaired standing balance 3. Limitation of joint range of motion in right ankle 4. Impaired functional activity tolerance 5. Anxiety Impairments are contributing to the following functional limitations: 1. Inability to safely ambulate without assistive device 2. Increase completion time for mobility ADL performance 3. Increased fall risk 4. Difficulty performing stairs without assistance and use of assistive device/rail Patient is being discharged to home with recommendation for home health PT Patient is assessed as a moderate complexity based on the following: History: 74-year-old female with impairment level findings, functional limitations, and past medical history as indicated above Examination: Demonstrable impairment in strength, balance, and mobility level with underlying impairments and functional limitations as documented above Presentation: Evolving Decision Making: Moderate Goals: N/A. Patient discharged home after evaluation Plan of Care/Treatment Plan: N/A. PT evaluation and 1 treatment session only for functional mobility training using recommended AD and for HEP instruction. DISCHARGE RECOMMENDATIONS: Home with HH PT and use of AFO TREATMENT CODE/TIME: 64397, 60445/12:45?1:19 PM Thank you for the opportunity to participate in the care of this patient. [facility]
--- NOTE | 2024-09-01 13:21 | PDOC.CMDIS ---
Date of service: 09/01/24 Time of Service: 13:22 LACE Index Scoring Tool Questions: Length of Stay (in days): 2 Was the patient admitted via the E.D.?: Yes Comorbidities: Metastatic Solid Tumor (Squamous cell carcinoma) E.D. Visits: 1 Answers: Total Score: 11 Risk of Readmission: High Risk Care Management Discharge Plan Reason for Hospitalization: Acute hypoxic respiratory failure Discharge Plan: Saundra is discharged home via private vehicle with her daughter. [facility] RN/PT, WIRE RIGGER services are ordered. Saundra will follow up with her PCP and her discharge plan of care as directed. Patient/Family Education Needs: Review discharge instructions and plan to follow up after discharge. Discuss ask me three. SDOH Health Related Social Needs: Health related social needs feeling lonely/isolated (Z60.8) Health related social needs details Pt says she feels occasionally lonely. Health related social needs details: Pt says she feels occasionally lonely.
--- NOTE | 2024-09-01 15:08 | PDOC.HHF2F_ITS ---
Home Health Referral Home Health Orders Clinical synopsis of why skilled professionals are needed: 74 yo F with history of CLL, CARLOS on CPAP, atrial fibrillation, recurrent DVTs, 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 CXR suggested LLL pneumonia. She was admitted for sepsis with pneumonia. Her blood pressures were soft and she was on oral budesonide for her colitis, so she was started on IV hydrocortisone and observed overnight in the ICU. She required initially 5 liters of oxygen via NC but was off supplumental oxygen by day 2. She never required pressers. Her cortisol was normal so hydrocortisone stopped, but she was transitioned to prednisone as part of pneumonia treatment. She was treated with levofloxacin given her PCN allergy. She improved and was discharged with 3 more days of levofloxacin and prednisone. She has known CLL and her WBC was 329K on admission. Heme/onc was consulted in the ED and did not recommend additional testing or treatment. The WBC did trend down with treatment. She had an FUNMILAYO with Cr 1.5 on admission, which recovered to 0.9 by the next day. Losartan was held but can be resumed as an outpatient. She was evaluated by PT who recommended home health PT due to general weakness and fall risk. She had some hemoptysis. We discussed doing a CT of her chest if this persists after treatment of pneumonia. Follow up PCP: 1 week to follow respiratory status If ongoing hemoptysis, get CT chest w/ Follow up with Heme/Onc for CLL Medical diagnosis necessitation home health referral: adama, pneumonia, CLL Physical Therapist: Check all that apply Increase strength & endurance for safe mobility at home: Ordered To design/establish home maintenance program: Ordered Home safety evaluation and teaching/gait training including stair management (if applicable): Ordered Home Bound Status Requires the aid of supportive device (check all that apply): Walker Describe why leaving home would require a considerable and taxing effort: Requires frequent rest periods Encounter Date and Reason: I certify that a FTF encounter for this patient was performed on September 01, 2024 and that such encounter was related to the primary reason the patient requires home health services. The encounter was conducted in the following manner: * By me as the certifying physician, TELECASTING TECHNICIAN, PA or * By an inpatient physician, TELECASTING TECHNICIAN or PA during an inpatient stay who communicated findings to me, Certification And Authentication I certify that I composed the above information based on my clinical judgment relating to this patient's medical condition and, if applicable, clinical findings communicated to me by the NPP or inpatient physician who performed the FTF encounter. Name of Provider that will be monitoring home health services: Ingrid Espinosa
--- NOTE | 2024-09-01 15:09 | W.PM.DS.N ---
Date of service: 09/01/24 Time of Service: 15:09 DS: Diagnosis Discharge Diagnosis (1) Severe sepsis: Status: Acute (2) Pneumonia: Status: Acute (3) Acute hypoxemic respiratory failure: Status: Acute (4) Chronic lymphocytic leukemia: Status: Acute (5) Hypertension: Status: None (6) Acute kidney injury: Status: Acute (7) History of DVT (deep vein thrombosis): Status: Acute (8) Atrial fibrillation: Status: Chronic (9) Chronic diarrhea: (10) Obstructive sleep apnea, adult: Status: Acute Discharge Plan Disposition Patient Disposition: Home W/Home Health Services Condition: Good Discharge Details Reason For Visit: pneumonia,severe sepsis,FUNMILAYO,lymphocytosis Admit Date/Time: 08/30/24 08:32 Admit Provider: Coleman David Attending Provider: Coleman David Primary Care Provider: Ingrid Espinosa Hospital Course Hospital Course: 74 yo F with history of CLL, CARLOS on CPAP, atrial fibrillation, recurrent DVTs, 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 CXR suggested LLL pneumonia. She was admitted for sepsis with pneumonia. Her blood pressures were soft and she was on oral budesonide for her colitis, so she was started on IV hydrocortisone and observed overnight in the ICU. She required initially 5 liters of oxygen via NC but was off supplumental oxygen by day 2. She never required pressers. Her cortisol was normal so hydrocortisone stopped, but she was transitioned to prednisone as part of pneumonia treatment. She was treated with levofloxacin given her PCN allergy. She improved and was discharged with 3 more days of levofloxacin and prednisone. She has known CLL and her WBC was 329K on admission. Heme/onc was consulted in the ED and did not recommend additional testing or treatment. The WBC did trend down with treatment. She had an FUNMILAYO with Cr 1.5 on admission, which recovered to 0.9 by the next day. Losartan was held but can be resumed as an outpatient. She was evaluated by PT who recommended home health PT due to general weakness and fall risk. She had some hemoptysis. We discussed doing a CT of her chest if this persists after treatment of pneumonia. Follow up PCP: 1 week to follow respiratory status If ongoing hemoptysis, get CT chest w/ Follow up with Heme/Onc for CLL Home Meds and New Rx's Prescriptions: New levofloxacin 750 mg tablet 750 mg PO DAILY 2 Days Qty: 2 0RF Rx Instructions: start 09/02 prednisone 20 mg Tablet 40 mg PO DAILY 3 Days Qty: 6 0RF Continued melatonin 10 mg tablet 10 mg PO HS PRN diclofenac sodium [Voltaren Arthritis Pain] 1 % gel 2 g topical QID PRN zinc 250 mg PO DAILY salon pas patch with lidocaine topical PRN Xyliments PO PRN cyanocobalamin (vitamin B-12) 1 tab PO DAILY diphenhydramine HCl [Benadryl Allergy] 25 mg tablet 25 mg PO PRN calcium carbonate [Tums] 200 mg calcium (500 mg) tablet,chewable 200 mg PO BID PRN mupirocin 2 % ointment 1 applic topical BID Qty: 22 0RF alpha lipoic acid 600 mg capsule 600 mg PO DAILY multivitamin Tablet 1 tab PO DAILY lidocaine 4 % cream 1 applic topical BID PRN Imodium A-D 2 MG tablet,chewable 2 mg PO QID PRN Rx Instructions: As needed. cholecalciferol (vitamin D3) 1,000 UNIT tablet 1,000 unit PO DAILY Qty: 100 Rx Instructions: for bone health C-PAP HS Buildup See Rx Instructions PO Rx Instructions: innumotherapy med from Dr. Cassidy ENT see task dated 08/01/20 cgc Citrucel 500 mg tablet See Rx Instructions PO DAILY Rx Instructions: 2 caps PO daily taken with 8oz fluid; incr by 1 cap qweek as tolerated up to 12 capsules daily. PO daily; (DME) Custom Amara Brace See Rx Instructions .Route .MEDSUPPLY Qty: 1 0RF Rx Instructions: Please measure and fit for a custom Amara Brace to the right ankle to support acquired pes planus deformity from chronic weakness of nerve impairment. Recent injury, surgery, and infection have caused a change to the shape and size of the ankle. (DME) Relief Knee Close Toe Stocking Misc Miscellaneous Qty: 2 12RF Rx Instructions: COMPRESSIONS STOCKINGS, APPLY IN AM AND REMOVE QPM. DX: H/O Venous Embolism (Deep Vessels pf L.E.) I82.90. desonide 0.05 % cream 1 applic Topical BID PRN (Reason: skin irritation) Qty: 30 3RF Rx Instructions: As Directed. Apply topically mix with ketoconazole, under breasts, skin folds. (per [facility] [place] derm) levothyroxine 50 mcg tablet 50 mcg PO DAILY Qty: 90 3RF fluticasone propionate [Flonase Allergy Relief] 50 mcg/actuation spray,suspension 1 spray intranasal BID Qty: 48 3RF Rx Instructions: administer into each nostril cetirizine [Zyrtec] 10 mg tablet 10 mg PO DAILY Qty: 90 3RF nystatin 100,000 unit/gram powder 1 applic TP BID PRN (Reason: rash) Qty: 60 3RF ondansetron HCl 4 mg tablet 4 mg PO BID PRN (Reason: nausea) Qty: 60 3RF ketoconazole 2 % cream 1 applic TP BID PRN (Reason: rash under breasts) Qty: 30 3RF losartan 50 mg tablet 50 mg PO DAILY Qty: 90 3RF gabapentin 300 mg capsule See Rx Instructions PO BID Qty: 270 3RF Rx Instructions: PO twice a day; 300mg in the AMs and 600mg in the PM metoprolol succinate 25 mg tablet extended release 24 hr 25 mg PO DAILY Qty: 90 3RF ezetimibe [Zetia] 10 mg tablet 10 mg PO DAILY Qty: 90 3RF rizatriptan 10 mg tablet See Rx Instructions PO .COMPLEX Qty: 30 3RF Rx Instructions: take 1 tab at onset of headache; if no relief may repeat 1 tab after at least 2 hrs; max = 3 tabs/24 hr PO Xarelto 20 mg tablet 20 mg PO QPM Qty: 90 3RF epinephrine [EpiPen 2-Darrell] 0.3 mg/0.3 mL auto-injector 0.3 mg IM ONCE Qty: 2 6RF Rx Instructions: as a single dose Held naproxen 500 mg tablet 500 mg PO BID PRN (Reason: pain) Qty: 90 0RF Hold Instructions: Resume on 09/05/24. do not take while taking prednisone, take with caution as instructed Rx Instructions: very rare intermittent use per [facility] neurology budesonide 3 mg capsule,delayed,extend.release 6 mg PO DAILY Hold Instructions: Resume on 09/05/24. do not take while taking prednisone Patient Comments: TAKE 3 CAPSULES BY MOUTH DAILY FOR 1 MONTH THEN TAKE 2 CAPSULES BY MOUTH DAILY FOR 1 MONTH THEN TAKE 1 CAPSULE BY MOUTH DAILY FOR 1 MONTH Discharge Instructions Instructions: Community-Acquired Pneumonia, Adult (DC) Additional Instructions: You have 3 more days of treatment for pnuemonia as above Follow up with your upper cutter machine/oncologist about the white blood counts/CLL good luck! Activity:: Activity as Tolerated Equipment/Supplies:: Walker Diet:: As Tolerated Discharge Orders Discharge Orders: Discharge Order (Routine); Ordered 09/01/24 Ordered By: Coleman David DS: Summary Time Spent with Patient providing and/or coordinating discharge services: Greater than 30 minutes Status at Discharge Functional status at discharge: uses cane/walker Overall status at discharge: patient is progressing back to baseline Mental Status: mental status grossly normal Speech and Movement: speech and movement normal Mood: congruent mood Affect: normal affect Quality:SDOH Health Related Social Needs: Health related social needs feeling lonely/isolated (Z60.8) Health related social needs details Pt says she feels occasionally lonely. Health related social needs details: Pt says she feels occasionally lonely. Exam Narrative Exam Narrative: GEN: Alert and oriented, no acute distress at rest. LUNGS: Lungs more clear today, just slighly course centrally and, mild rales left base, good air movement. no longer tachypeic CV: RRR with 2/6 systolic murmur, no gallops, or rubs. EXT: no cyanosis, clubbing. Trace erica ankle edema Psych Mental Status: mental status grossly normal Speech and Movement: speech and movement normal Mood: congruent mood Affect: normal affect DS: Data Vitals/I&O Vitals and I&O: Vital Signs Temperature 36.6 C 09/01/24 11:01 Temperature Source Temporal Artery Scan 09/01/24 11:01 Pulse 72 09/01/24 11:01 Pulse Rhythm Irregular 08/31/24 10:10 Pulse 75 08/31/24 09:00 Respiratory Rate 18 09/01/24 11:01 Respiratory Effort Normal, Non-Labored 08/31/24 10:10 Respiratory Depth Normal 08/31/24 10:10 Respiratory Pattern Normal 08/31/24 10:10 Blood Pressure 120/69 09/01/24 11:01 Blood Pressure Mean 97 08/31/24 08:26 Blood Pressure Position Sitting 08/30/24 06:12 Pulse Oximetry 94 04/16/25 11:01 Oxygen Delivery Method Room Air 09/01/24 11:01 Oxygen Flow Rate 0 09/01/24 11:01 Pain Level 5 09/01/24 11:01 Comment MAP 89 08/31/24 23:26 Intake & Output 08/31/24 09/01/24 09/01/24 23:59 11:59 23:59 Intake Total 520 280 / 280 Balance 320 280 / 280 Weight 100.5 kg Intake: IV 10 160 160 / 160 Oral 120 / 120 Other: Urine Color Yellow Yellow Urine Appearance Clear Urine Odor Normal Comment In toilet - unmeasured Stool Size Small Stool Characteristics Formed Data Completed and Pending Labs on day of discharge: Labs from last 24 hours 09/01/24 08:20 WBC 285.64 H* RBC 4.24 Hgb 11.2 Hct 40.8 MCV 96 H MCH 26.4 L MCHC 27.5 L RDW 17.3 H Plt Count 138 MPV 11.2 H Immature Gran % 0.0 Neutrophils % 5.0 Band Neutrophils % 0 Lymphocytes % 95.0 Atypical Lymphs % 0 Monocytes % 0.0 Eosinophils % 0.0 Basophils % 0.0 Nucleated RBC % 0.0 Absolute Neutrophils 14.28 H Absolute Lymphocytes 271.36 H Absolute Monocytes 0.00 L Absolute Eosinophils 0.00 Absolute Basophils 0.00 RBC Morphology See Below Hypochromasia 2+ Poikilocytosis 2+ Anisocytosis 1+ Preliminary micro results at discharge 08/30/24 10:49 Sputum Culture - Preliminary Sputum - Expectorated Normal Anna 08/30/24 06:40 Blood Culture - Preliminary Blood NO GROWTH 48 HOURS 08/30/24 06:35 Blood Culture - Preliminary Blood NO GROWTH 48 HOURS PFSH All Active Problems Severe sepsis (Acute) Acute kidney injury (Acute) Sepsis (Acute) Leukocytosis (Acute) Acute hypoxemic respiratory failure (Acute) Pneumonia (Acute) Squamous cell carcinoma of skin of left cheek (Acute ~08/2024) 08/24/24 Dr Saucedo, [facility] proc Acquired right foot drop (Acute) Venous insufficiency (Acute) Atherosclerosis of artery of both lower extremities (Acute) Peripheral neuropathy (Acute) Callus (Acute) Varicose vein of leg (Acute) Erythema migrans (Lyme disease) (Acute ~09/2022) Cerebral infarction, unspecified (Acute ~08/2022) 08/05/22 CT Scan showed old R frontal opercular infarction. Acquired pes planovalgus of right foot (Acute ~06/2022) Dr Thomas, [facility] [place] Eyelid lesion (Acute ~06/2022) 06/25/22 Oph Bilateral pseudophakia (Acute ~06/2022) 06/25/22 Ophth 08/02/24 f/u visit Pre-diabetes (Acute) Chondrocalcinosis of right knee (Acute) depo medrol 06/06/22 Degenerative joint disease of right knee (Chronic) Most recent Depo-Medrol injection: 06/27/2023 Hypogammaglobulinemia (Acute) 04/24/22 Hem/Onc Radiculopathy, lumbar region (Acute) 03/18/22 Dr Mayer Anticoagulation adequate (Acute) Nail dystrophy (Acute) Plantar fasciitis (Acute) per xr Pre-diabetes (Acute) Post-menopause (Acute) Bilateral nephrolithiasis (Acute 03/05/21) non-obstructing 03/24/23 Cystoscopy at Wound of right ankle (Acute) Mobility impaired (Acute) Subcutaneous nodule (Acute) Fibromyalgia (Acute) Family history of breast cancer (Acute) History of DVT (deep vein thrombosis) (Acute) Pain due to varicose veins of lower extremity (Acute) Fecal incontinence (Acute 05/26/20) IBS (irritable bowel syndrome) (Chronic 05/26/20) Impaired fasting glucose (Acute 07/09/11) Angiomyolipoma of both kidneys (Acute) cystoscopy 03/2013, 02/22/20-[facility] urology note. Coleman Du MD. 02/2020 normal cystoscopy followed by Dr. Du [facility] urology. 04/14/24 Urology visit Left breast lump (Acute) Atrial fibrillation (Chronic 11/29/19) Obesity (Chronic) Primary osteoarthritis of both hips (Acute) [facility] Ortho Right hip pain (Acute) Postnasal drip (Acute 07/05/13) Allergic rhinitis (Acute 07/05/13) Brachial plexus disorders (Acute 07/09/11) Depressive disorder (Chronic 03/18/97) Migraine (Acute 02/15/98) Chronic headache (Chronic) Dr. Mayer Lumbar radiculopathy, chronic (Chronic) Donovan Mayer mD Weakness of foot (Acute) weak leg & R foot drop due to LS disc problems Seasonal allergic rhinitis (Acute 10/29/12) RESPONSIVE TO LORATADINE/FLONASE Osteoarthritis, hip, bilateral (Acute 06/07/14) ortho: Dr Salcido, [facility] [place] Obstructive sleep apnea, adult (Acute 05/19/90) CPAP initially sleep lab [facility] 04/2020 Amy Crocker Morbid obesity (Acute 07/09/11) goal: 230 (10% less than 11/2014 wt) Hypothyroidism (Acute 05/04/12) Hyperlipidemia (Acute 06/19/02) Simvastatin begun 10/2006 failed on lifestyle alone, goal LDL <130 then Hypercoagulable state, primary (Acute) h/o w/u [facility] 12/2011; rec wt loss and aggressive prophylaxis for immobilization H/O malignant carcinoid tumor of stomach (Acute 02/16/07) GASTRIC CARCINOID, [facility], [facility], EGD 06/01/09; RPT Q 2 YR EGD 08/19/17 Dr Quinn >20 hyperplastic gastric polyps Gastroesophageal reflux disease (Acute 07/09/11) Flat feet, bilateral (Acute 12/31/16) brace right leg, insert left foot Chronic pain (Acute 10/19/01) rarely opioid; uses cymbalta for chronic foot, back, sometimes head pain; after disc rupture 10/2001 [facility] [facility] Chronic lymphocytic leukemia (Acute) [facility] hematology consult note 10/09/17 [facility] hem/onc f/u note 02/22/21 Benign hypertension (Acute 06/19/02) Signed copy of advance directive in patient notes (Acute 07/09/11) Medical History Astigmatism of both eyes with presbyopia (~07/2024) 08/02/24 Ophth Lesion of upper eyelid (~07/2024) 08/02/24 Ophth - MELISSA - being monitored Lesion of skin of cheek (~07/2024) 07/26/24 seen by Derm, shave bx done Lentigines 07/08/22 Derm Multiple nevi 07/08/22 Derm Seborrheic keratoses 07/08/22 Derm Actinic keratoses 07/08/22 Derm and had cryotherapy tp L Cheek Closed displaced comminuted fracture of shaft of right fibula 11/02/20-[facility].scheduled for OR on 11/06/20. Farnaz Acuña APRN Tick bite Abnormality of nail tissue Insect sting Insect sting allergy, current reaction Right thigh pain Undiagnosed cardiac murmurs (05/05/02) Allergic fungal sinusitis (10/04/13) Postmenopausal bleeding (06/11/11) Primary stomach malignant carcinoid tumor resection 2006 GERD (gastroesophageal reflux disease) Angiomyolipoma of kidney 12/13/19 F/u [facility] Urology Chronic diarrhea Chronic pain syndrome Obesity (BMI 30-39.9) Systolic murmur Hyperlipidemia Headache DVT (deep venous thrombosis) Weakness of foot Sleep apnea Thoracic outlet syndrome Depression with anxiety Surgical History Status post ORIF of fracture of ankle (11/06/20) fixation left ankle, [facility] endoscopic 2007 disc surgery 2005 section 1986 EGD - MAC (08/19/17) 2012-walko 2009 2006 EGD - MAC (07/22/16) 2012-walko 2009 2006 Dilation and curettage 2004 Sacha Briones 2005- Dr. Clement Colonoscopy - MAC (07/22/16) Cholecystectomy Laparoscopic-2006 Extraction of cataract Bilateral-2007 Family History Mother , sepsis at age 84. Diabetes Essential hypertension Fibromyalgia Heart disease Hyperlipidemia Sepsis Father , copd at age 79. Essential hypertension COPD (chronic obstructive pulmonary disease) Heart disease Hyperlipidemia Sister Breast cancer post-menopausal Brother , suicide at age 31. Mental disorder Paternal Aunt Breast cancer post-menopausal Other Alcohol abuse Lyme disease Prostate cancer Social History (Updated 08/30/24 @ 09:30 by Coleman David) Smoking/Tobacco Use Status: Never Second Hand Exposure: No Smoking risk assessment performed?: Yes Alcohol Intake: current Alcohol Intake frequency: a few times a month Drug use: Never Substance use type: does not use Adopted: No Caregiver/Support person: No Foster care: No Household members: none Housing: house Number of Children: 1 number of grandchildren: 0 Communication Needs: Corrective Lenses Education Level: master's degree Do you need help understanding health information?: Never current occupation: Retired Pets and animals: Yes Pets and animals: cat(s) and dog(s) Sexually active: No Do you think of yourself as: straight/heterosexual Current gender identity: female What is your relationship status?: How often do you talk on the phone with friends or family?: three or more times per week How often do you get together with friends or relatives?: twice per week Do you belong to any clubs or organized social groups?: yes Panel score (0-1 are the most socially isolated patients): 2 What type of physical activity do you participate in: walking Duration: 45-60 minutes/day Frequency: daily Dolores/Yazidism: Jehovah'S Witness Special dolores needs: No Agree to transfusion: Yes Seatbelt use: always Helmet use: Yes Helmet use: other Details: Not needed Drive intox or ride w/intox dedicated driver: No Working smoke detector in home: Yes Fire extinguisher in home: Yes Carbon monox detector in home: Yes Do you feel safe at home: Yes Additional Social history: [place] [facility]. Daughter in [facility]. Dog at home, no birds Time Spent with Patient Time Spent with Patient: <45 minutes Time was spent: preparing to see the patient(eg.review tests), obtaining and/or reviewing separately otained hiistory, ordering medications,tests, procedures, referring, communicating with other health health care law specialist, indepentently interpreting results, counseling the patient and care coordination
[2024-09-01 15:20] VITALS: BP 150/82; PULSE 97; RESP 20; TEMP 37; O2SAT 96
== END 2024-09-01 16:55 | disposition home health service (06) | DRG 871 ==
LOC: ER 08:02 → ICU 10:28 → MS 08-31 10:03
PROVIDERS: Admitting Provider Family Medicine; Emergency Provider Student in an Organized Health Care Education/Training Program; PCP Nurse Practitioner; Responsible Provider Family Medicine; Visit Provider Family Medicine
DX: A41.9 Sepsis, unspecified organism (principal); J18.9 Pneumonia, unspecified organism; J96.01 Acute respiratory failure with hypoxia; N17.9 Acute kidney failure, unspecified; C91.90 Lymphoid leukemia, unspecified not having achieved remission; R65.20 Severe sepsis without septic shock; I10 Essential (primary) hypertension; Z86.718 Personal history of other venous thrombosis and embolism; I48.91 Unspecified atrial fibrillation; G47.33 Obstructive sleep apnea (adult) (pediatric); K52.832 Lymphocytic colitis; Z86.73 Personal history of transient ischemic attack (TIA), and cerebral infarction without residual deficits; Z79.01 Long term (current) use of anticoagulants; K21.9 Gastro-esophageal reflux disease without esophagitis; R26.2 Difficulty in walking, not elsewhere classified; I87.2 Venous insufficiency (chronic) (peripheral); G62.9 Polyneuropathy, unspecified; R73.03 Prediabetes; I70.203 Unspecified atherosclerosis of native arteries of extremities, bilateral legs; M54.16 Radiculopathy, lumbar region; G43.909 Migraine, unspecified, not intractable, without status migrainosus; E03.9 Hypothyroidism, unspecified; E78.5 Hyperlipidemia, unspecified; Z85.020 Personal history of malignant carcinoid tumor of stomach; Z68.32 Body mass index [BMI] 32.0-32.9, adult; E66.9 Obesity, unspecified
CPT/HCPCS: 00123; 36415; 80048; 80053; 82533; 82805; 84145; 87040; 87637; 93005; 94640; 96365; 96375; 97162; 97530; 99291; 71045; 81003; 81015; 83605; 83880; 84443; 84484; 85025; 85610; 85730; 87070; 87205; 93010; 94667; 94760; 99223; 99233; 99239; J1720; J1956; J2919; J7512; J7620

== ENCOUNTER → 2024-09-13 09:59 | Outpatient (BNVA) | payer MEDICARE, SELFPAY | PROVIDERS: PCP Nurse Practitioner; Referring Provider Nurse Practitioner; Visit Provider Podiatrist ==

== ENCOUNTER 2024-09-13 22:13 | Outpatient (REF) | payer MEDICARE, SELFPAY | END 2024-09-13 22:14 | disposition home or self-care (01) | LOC: LBN 22:13 | PROVIDERS: PCP Nurse Practitioner; Visit Provider Nurse Practitioner Family | DX: N30.01 Acute cystitis with hematuria (principal) | CPT/HCPCS: 87077; 87086; 87186 ==

== ENCOUNTER 2024-09-17 16:14 | Outpatient (CLI) | payer MEDICARE, SELFPAY ==
--- NOTE | 2024-09-17 16:00 | RT.EKG_ITS ---
APPROVED REPORT Exam: Resting ECG Reason for Exam: Increased HR Patient Location: O HR:89 bpm ECG Measurements Heart Rate 89 AXIS MT [id number] P [id number] QRSd 86 QRS 52 QT 342 T 18 QTc 417 Conclusion Atrial fibrillation...V-rate 64-104, irreg A-activity
== END 2024-09-17 16:15 | disposition home or self-care (01) ==
LOC: DI.KIM 16:14
PROVIDERS: PCP Nurse Practitioner; Visit Provider Family Medicine
DX: R00.0 Tachycardia, unspecified (principal); I48.91 Unspecified atrial fibrillation
CPT/HCPCS: 93010

== ENCOUNTER 2024-09-24 21:10 | Outpatient (REF) | payer MEDICARE, SELFPAY ==
[2024-09-24 16:11] LABS: Bilirubin Negative (Negative); Blood Moderate (Negative); Clarity Clear (Clear); Glucose Negative (Negative); Ketones Negative (Negative); Leukocyte Esterase Negative (Negative); Nitrite Negative (Negative); Urobilinogen 0.2 mg/dL (Up to 0.2); pH 6.5 (5-8)
== END 2024-09-24 21:11 | disposition home or self-care (01) ==
LOC: LBN 21:10
PROVIDERS: PCP Nurse Practitioner; Visit Provider Family Medicine
DX: N39.0 Urinary tract infection, site not specified (principal)
CPT/HCPCS: 81003

== ENCOUNTER → 2024-11-18 12:58 | Outpatient (BNVA) | payer MEDICARE, SELFPAY | PROVIDERS: PCP Nurse Practitioner; Referring Provider Nurse Practitioner; Visit Provider Physician Assistant | DX: M17.11 Unilateral primary osteoarthritis, right knee (principal); M11.261 Other chondrocalcinosis, right knee | CPT/HCPCS: 20610; J1010 ==

== ENCOUNTER 2024-11-25 02:10 | Outpatient (CLI) | payer MEDICARE, SELFPAY ==
[2024-11-25 14:08] LABS: Abs Immature Grans 0.19 10^3/uL (0.0-0.06); HCT 41.9 % (36.0-46.0); HGB 12.1 g/dL (11.2-15.7); MCH 27.3 pg (27.0-33.0); MCHC 28.9 % (32.0-36.0); MCV 95 fL (80-95); MPV 11.0 fL (8.0-11.0); Platelet Count 185 10^3/uL (130-400); RBC 4.43 10^6/uL (3.93-5.22); RDW 16.9 % (11.7-14.6); RDW-SD 54.2 fL
[2024-11-25 14:43] LABS: Immature Grans % 0.0 %
[2024-11-25 14:44] LABS: RBC Morphology Normal
[2024-11-25 14:48] LABS: WBC 176.36 10^3/uL (4.4-10.8)
[2024-11-25 15:05] LABS: LDH 216 U/L (81-234); Uric Acid 5.6 mg/dL (2.6-6.0)
[2024-11-25 15:18] LABS: ALT 24 U/L (14-59); AST 22 U/L (15-37); Albumin 3.6 g/dL (3.4-5.0); Alkaline Phosphatase 96 U/L (46-116); Anion Gap 6.4 mmol/L (3-11); BUN 13 mg/dL (7-18); Bilirubin, Total 0.5 mg/dL (0.2-1.0); CO2 30.6 mmol/L (21.0-32.0); Calcium 9.6 mg/dL (8.5-10.1); Chloride 104 mmol/L (98-107); Estimated GFR 93.55 (mL/min/1.73m2); Glucose 113 mg/dL (74-106); Potassium 3.6 mmol/L (3.5-5.1); Sodium 141 mmol/L (136-145); Total Protein 6.8 g/dL (6.4-8.2)
== END 2024-11-25 02:11 | disposition home or self-care (01) ==
PROVIDERS: PCP Nurse Practitioner; Visit Provider Internal Medicine Hematology & Oncology
DX: D80.1 Nonfamilial hypogammaglobulinemia (principal); C91.10 Chronic lymphocytic leukemia of B-cell type not having achieved remission
CPT/HCPCS: 36415; 80053; 82784; 83615; 84550; 85025

== ENCOUNTER 2024-12-24 01:13 | Outpatient (CLI) | payer MEDICARE, SELFPAY ==
[2024-12-24 13:36] LABS: Abs Immature Grans 0.21 10^3/uL (0.0-0.06); HCT 40.1 % (36.0-46.0); HGB 12.0 g/dL (11.2-15.7); MCH 28.2 pg (27.0-33.0); MCHC 29.9 % (32.0-36.0); MCV 94 fL (80-95); MPV 10.3 fL (8.0-11.0); Platelet Count 178 10^3/uL (130-400); RBC 4.26 10^6/uL (3.93-5.22); RDW 15.8 % (11.7-14.6); RDW-SD 52.9 fL
[2024-12-24 14:15] LABS: Immature Grans % 0.0 %
[2024-12-24 14:16] LABS: RBC Morphology Normal
[2024-12-24 14:21] LABS: WBC 148.46 10^3/uL (4.4-10.8)
[2024-12-24 15:00] LABS: ALT 25 U/L (14-59); AST 29 U/L (15-37); Albumin 3.7 g/dL (3.4-5.0); Alkaline Phosphatase 88 U/L (46-116); Anion Gap 6.5 mmol/L (3-11); BUN 14 mg/dL (7-18); Bilirubin, Total 0.4 mg/dL (0.2-1.0); CO2 30.5 mmol/L (21.0-32.0); Calcium 9.5 mg/dL (8.5-10.1); Chloride 108 mmol/L (98-107); Estimated GFR 58.75 (mL/min/1.73m2); Glucose 106 mg/dL (74-106); LDH 220 U/L (81-234); Potassium 3.8 mmol/L (3.5-5.1); Sodium 145 mmol/L (136-145); Total Protein 6.4 g/dL (6.4-8.2); Uric Acid 5.6 mg/dL (2.6-6.0)
== END 2024-12-24 01:14 | disposition home or self-care (01) ==
LOC: LBO 01:13
PROVIDERS: PCP Nurse Practitioner; Visit Provider Internal Medicine Hematology & Oncology
DX: D80.1 Nonfamilial hypogammaglobulinemia (principal); C91.10 Chronic lymphocytic leukemia of B-cell type not having achieved remission
CPT/HCPCS: 36415; 80053; 82784; 83615; 84550; 85025

== ENCOUNTER 2024-12-27 15:41 | Outpatient (REF) | payer MEDICARE, SELFPAY | END 2024-12-27 15:42 | disposition home or self-care (01) | LOC: LBN 15:41 | PROVIDERS: PCP Nurse Practitioner; Visit Provider Student in an Organized Health Care Education/Training Program | DX: R31.9 Hematuria, unspecified (principal) | CPT/HCPCS: 81015; 87086 ==

== ENCOUNTER 2025-01-05 19:30 | Outpatient (REF) | payer MEDICARE, SELFPAY | END 2025-01-05 19:31 | disposition home or self-care (01) | LOC: LBN 19:30 | PROVIDERS: PCP Nurse Practitioner; Visit Provider Orthopaedic Surgery | DX: N39.0 Urinary tract infection, site not specified (principal) | CPT/HCPCS: 87077; 87086; 87186 ==

== ENCOUNTER 2025-01-28 03:15 | Outpatient (CLI) | payer MEDICARE, SELFPAY ==
[2025-01-28 12:15] LABS: Abs Immature Grans 0.15 10^3/uL (0.0-0.06); HCT 40.1 % (36.0-46.0); HGB 12.4 g/dL (11.2-15.7); Immature Grans % 0.1 %; MCH 28.1 pg (27.0-33.0); MCHC 30.9 % (32.0-36.0); MCV 91 fL (80-95); MPV 11.3 fL (8.0-11.0); Platelet Count 152 10^3/uL (130-400); RBC 4.41 10^6/uL (3.93-5.22); RDW 15.1 % (11.7-14.6); RDW-SD 49.3 fL
[2025-01-28 12:28] LABS: RBC Morphology Normal
[2025-01-28 12:31] LABS: WBC 125.48 10^3/uL (4.4-10.8)
[2025-01-28 12:37] LABS: ALT 18 U/L (14-59); AST 31 U/L (15-37); Albumin 3.6 g/dL (3.4-5.0); Alkaline Phosphatase 91 U/L (46-116); Anion Gap 9.5 mmol/L (3-11); BUN 17 mg/dL (7-18); Bilirubin, Total 0.4 mg/dL (0.2-1.0); CO2 27.5 mmol/L (21.0-32.0); Calcium 9.7 mg/dL (8.5-10.1); Chloride 108 mmol/L (98-107); Estimated GFR 76.79 (mL/min/1.73m2); Glucose 87 mg/dL (74-106); Potassium 3.8 mmol/L (3.5-5.1); Sodium 145 mmol/L (136-145); Total Protein 6.6 g/dL (6.4-8.2)
== END 2025-01-28 03:16 | disposition home or self-care (01) ==
PROVIDERS: PCP Nurse Practitioner; Visit Provider Internal Medicine Hematology & Oncology
DX: D80.1 Nonfamilial hypogammaglobulinemia (principal)
CPT/HCPCS: 36415; 80053; 82784; 85025

== ENCOUNTER 2025-01-29 11:50 | Outpatient (REF) | payer MEDICARE, SELFPAY | END 2025-01-29 11:51 | disposition home or self-care (01) | LOC: LBN 11:50 | PROVIDERS: PCP Nurse Practitioner; Visit Provider Student in an Organized Health Care Education/Training Program | DX: R31.9 Hematuria, unspecified (principal) | CPT/HCPCS: 87077; 87086; 87186 ==

== ENCOUNTER 2025-02-22 01:15 | Outpatient (CLI) | payer MEDICARE, SELFPAY ==
--- NOTE | 2025-02-22 07:00 | DI.MAMMO_ITS ---
Exam(s) MAMMO SCREENING EXAM: MAMMO SCREENING CLINICAL HISTORY: screening, Z12.39 TECHNIQUE: Bilateral full field digital CC and MLO mammographic images were obtained with 3D tomosynthesis and utilizing computer aided detection (CAD). COMPARISON: Comparison is made with prior examinations. FINDINGS: Masses/Architectural Distortion: No suspicious masses or areas of architectural distortion are present. Microcalcifications: No suspicious pleomorphic-type are seen. Skin Thickening/Nipple Retraction: None. IMPRESSION: 1. No significant interval change with no specific features of malignancy noted. 2. Unless there is more urgent need, screening mammography is recommended, as per [employer] guidelines. BI-RADS Category 1 - Negative Breast Density - Category B - There are scattered areas of fibroglandular density. Breast density Category C or D implies that the patient has dense breast tissue. Dense breast tissue can make it harder to find cancer on a mammogram. Dense breast tissue is also associated with an increased risk of breast cancer. This information about the result of the mammogram report was provided to the patient to raise their awareness. Use this report when you speak with the patient about their risks for breast cancer, which includes their family history. At that time, you may recommend additional screening tests (Ultrasound or MRI) as these tests may add significant information. A negative radiographic report should not delay biopsy if a dominant or clinically suspicious mass is present. Up to ten percent of cancers are not identified on mammography. A negative report may reinforce clinical impression. Adenosis and dense breasts may obscure an underlying neoplasm. False positive reports average 6 to 10%. Patient will receive a letter notifying them of these results.
== END 2025-02-22 01:35 ==
LOC: DI 01:15
PROVIDERS: PCP Nurse Practitioner; Visit Provider Family Medicine
DX: Z12.31 Encounter for screening mammogram for malignant neoplasm of breast (principal)
CPT/HCPCS: 77063; 77067

== ENCOUNTER 2025-02-25 02:59 | Outpatient (CLI) | payer MEDICARE, SELFPAY ==
[2025-02-25 11:37] LABS: Abs Immature Grans 0.14 10^3/uL (0.0-0.06); HCT 41.3 % (36.0-46.0); HGB 12.5 g/dL (11.2-15.7); Immature Grans % 0.1 %; MCH 27.1 pg (27.0-33.0); MCHC 30.3 % (32.0-36.0); MCV 90 fL (80-95); MPV 11.3 fL (8.0-11.0); Platelet Count 170 10^3/uL (130-400); RBC 4.61 10^6/uL (3.93-5.22); RDW 15.0 % (11.7-14.6); RDW-SD 47.8 fL
[2025-02-25 11:56] LABS: RBC Morphology Normal; WBC 163.18 10^3/uL (4.4-10.8)
[2025-02-25 11:58] LABS: ALT 18 U/L (14-59); AST 33 U/L (15-37); Albumin 3.6 g/dL (3.4-5.0); Alkaline Phosphatase 96 U/L (46-116); Anion Gap 9.2 mmol/L (3-11); BUN 15 mg/dL (7-18); Bilirubin, Total 0.4 mg/dL (0.2-1.0); CO2 27.8 mmol/L (21.0-32.0); Calcium 9.5 mg/dL (8.5-10.1); Chloride 108 mmol/L (98-107); Estimated GFR 76.79 (mL/min/1.73m2); Glucose 90 mg/dL (74-106); LDH 290 U/L (81-234); Potassium 4.2 mmol/L (3.5-5.1); Sodium 145 mmol/L (136-145); Total Protein 6.5 g/dL (6.4-8.2); Uric Acid 6.3 mg/dL (2.6-6.0)
== END 2025-02-25 03:00 | disposition home or self-care (01) ==
PROVIDERS: PCP Nurse Practitioner; Visit Provider Internal Medicine Hematology & Oncology
DX: D80.1 Nonfamilial hypogammaglobulinemia (principal); C91.10 Chronic lymphocytic leukemia of B-cell type not having achieved remission
CPT/HCPCS: 36415; 80053; 82784; 83615; 84550; 85025

== ENCOUNTER 2025-03-25 02:58 | Outpatient (CLI) | payer MEDICARE, SELFPAY ==
[2025-03-25 11:28] LABS: Abs Immature Grans 0.21 10^3/uL (0.0-0.06); HCT 42.1 % (36.0-46.0); HGB 12.4 g/dL (11.2-15.7); MCH 27.3 pg (27.0-33.0); MCHC 29.5 % (32.0-36.0); MCV 93 fL (80-95); MPV 11.0 fL (8.0-11.0); Platelet Count 173 10^3/uL (130-400); RBC 4.55 10^6/uL (3.93-5.22); RDW 15.7 % (11.7-14.6); RDW-SD 50.9 fL
[2025-03-25 11:47] LABS: ALT 18 U/L (14-59); AST 32 U/L (15-37); Albumin 3.5 g/dL (3.4-5.0); Alkaline Phosphatase 99 U/L (46-116); Anion Gap 8.2 mmol/L (3-11); BUN 12 mg/dL (7-18); Bilirubin, Total 0.4 mg/dL (0.2-1.0); CO2 25.8 mmol/L (21.0-32.0); Calcium 9.5 mg/dL (8.5-10.1); Chloride 108 mmol/L (98-107); Glucose 130 mg/dL (74-106); LDH 283 U/L (81-234); Potassium 3.9 mmol/L (3.5-5.1); Sodium 142 mmol/L (136-145); Total Protein 7.0 g/dL (6.4-8.2); Uric Acid 5.5 mg/dL (2.6-6.0)
[2025-03-25 11:55] LABS: Immature Grans % 0.0 %; RBC Morphology Normal
== END 2025-03-25 02:59 | disposition home or self-care (01) ==
LOC: LBO 02:58
PROVIDERS: Visit Provider Internal Medicine Hematology & Oncology
DX: C91.10 Chronic lymphocytic leukemia of B-cell type not having achieved remission (principal)
CPT/HCPCS: 36415; 80053; 82784; 83615; 84550; 85025

== ENCOUNTER 2025-04-29 01:46 | Outpatient (CLI) | payer MEDICARE, SELFPAY ==
[2025-04-29 14:10] LABS: Abs Immature Grans 0.32 10^3/uL (0.0-0.06); HCT 42.2 % (36.0-46.0); HGB 12.3 g/dL (11.2-15.7); Immature Grans % 0.1 %; MCH 26.7 pg (27.0-33.0); MCHC 29.1 % (32.0-36.0); MCV 92 fL (80-95); MPV 11.8 fL (8.0-11.0); Platelet Count 163 10^3/uL (130-400); RBC 4.60 10^6/uL (3.93-5.22); RDW 15.9 % (11.7-14.6); RDW-SD 51.8 fL
[2025-04-29 14:14] LABS: WBC 263.42 10^3/uL (4.4-10.8)
[2025-04-29 15:06] LABS: ALT 12 U/L (10-49); AST 40 U/L (<34); Albumin 4.3 g/dL (3.2-5.0); Alkaline Phosphatase 113 U/L (46-116); Anion Gap 10.9 mmol/L (3-11); BUN 17 mg/dL (9-23); Bilirubin, Total 0.5 mg/dL (0.2-1.2); CO2 24.1 mmol/L (20.0-31.0); Calcium 10.4 mg/dL (8.3-10.6); Chloride 108 mmol/L (98-107); Glucose 130 mg/dL (74-106); Potassium 3.8 mmol/L (3.5-5.1); Sodium 143 mmol/L (136-145); Total Protein 7.0 g/dL (5.7-8.2)
[2025-04-29 15:20] LABS: Hypochromasia 1+
[2025-04-29 23:53] LABS: Uric Acid 7.5 mg/dL (3.1-7.8)
[2025-04-29 23:55] LABS: LDH 331 U/L (120-246)
== END 2025-04-29 01:47 | disposition home or self-care (01) ==
LOC: LBO 01:46
PROVIDERS: Visit Provider Internal Medicine Hematology & Oncology
DX: C91.10 Chronic lymphocytic leukemia of B-cell type not having achieved remission (principal); D80.1 Nonfamilial hypogammaglobulinemia
CPT/HCPCS: 36415; 80053; 82784; 83615; 84550; 85025